=== PATIENT | male | born 1960 | race Caucasian/White ===

== ENCOUNTER 2023-03-07 08:30 | Day surgery (SDC) | payer MEDICARE, OTHER, SELFPAY ==
[2023-03-07] VITALS (15 sets, daily range): BP systolic 120–157; BP diastolic 72–94; PULSE 74–99; RESP 10–22; TEMP 36.8–36.9; O2SAT 95–98; BMI 28.1
--- NOTE | 2023-03-07 08:50 | ECG_ITS ---
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
--- NOTE | 2023-03-07 08:56 | CT_ITS ---
The [address] [address] Patient Name: DYAN HARRELL MRN: [id number] date: 1960 Sex: M Assigned Patient Location: ER Current Patient Location: ER Accession/Order Number: [id number] Exam Date: 03/07/2023 09:40 Report Date: 03/07/2023 10:08 At the request of: GUSTAVO COELHO Procedure: CT abdomen pelvis wo con CT abdomen pelvis wo con, 03/07/2023 9:40 AM EDT, [place]001 INDICATION: RLQ abd pain COMPARISON: CT from 09/14/2022.. TECHNIQUE: Helical images were obtained without intravenous contrast. Coronal and sagittal reconstructions were also generated. Dose reduction techniques were achieved by using automated exposure control and/or adjustment of mA and/or kV according to patient size and/or use of iterative reconstruction technique. Oral contrast: None. FINDINGS: The visualized portions of the lower thorax appear unremarkable. The liver is normal in size and attenuation. The gallbladder has been removed. Multiple punctate calcifications are again seen within the pancreas suggestive of chronic pancreatitis. The spleen appears unremarkable. The adrenal glands appear unremarkable. There is moderate right hydronephrosis/hydroureter down to the level of a 7 mm calculus at the upper sacral level. A few punctate nonobstructing renal calculi are again noted. The vasculature appears unremarkable. There is no pathologic retroperitoneal adenopathy. The urinary bladder appears unremarkable. The prostate gland is enlarged at 5.2 cm transverse. There is no evidence of pathologic pelvic adenopathy. There is no evidence of free air or free fluid. There is no evidence of obstruction. There is dilatation of the appendix at 13 mm in diameter with stranding in the surrounding fat, consistent with acute appendicitis. No significant hernia is identified. The osseous structures appear unremarkable. CT/CT abdomen pelvis wo con IMPRESSION: Findings consistent with acute appendicitis. There is no evidence of abscess or free air. Moderate right hydronephrosis/hydroureter with a 7 mm calculus at the upper sacral level. Electronically authenticated by: LIVIA VILLA Date: 03/07/2023 10:08
--- NOTE | 2023-03-07 08:58 | ED.ABDPAIN1 ---
HPI - Abdominal Pain General Chief Complaint: Abdominal Pain Stated Complaint: FEVER/STOMACH PAIN/NAUSEA/CHILLS Time Seen by Provider: 03/07/23 08:34 Source: patient Mode of arrival: walk-in Limitations: no limitations History of Present Illness HPI narrative: The patient had a history of hypertension presenting to us with a few days history of right-sided lower quadrant pain associated with the overall bloating and nausea, the patient had decreased appetite over the last few days as well since Sunday he also mentioned having some chills earlier. No burning with urination no other complaints The pain is not radiating and the patient mentioned that he have a history of cholecystectomy Related Data Home Medications Medication Instructions Recorded Confirmed hydrochlorothiazide 12.5 mg capsule 12.5 mg PO DAILY 03/07/23 03/07/23 semaglutide 7 mg tablet (Rybelsus) 7 mg PO DAILY 03/07/23 03/07/23 tamsulosin 0.4 mg capsule (Flomax) 0.4 mg PO DAILY 03/07/23 03/07/23 Allergies Allergy/AdvReac Type Severity Reaction Status Date / Time No Known Drug Allergies Allergy Verified 03/07/23 08:36 Review of Systems ROS Status of ROS 10 or more systems reviewed and unremarkable except as noted in history and below Exam Narrative Exam Narrative: Nurses notes and vital signs reviewed and patient is not hypoxic. General: Well-appearing and in no apparent distress. Skin: Warm, dry, no pallor noted. No rash. Head: Normocephalic, atraumatic. Neck: Supple, non-tender. Eye: Pupils are equal, round and EOMI. No scleral icterus. Ears, Nose, Mouth, and Throat: TM are clear, no nasal mucosal hypertrophy. Oral mucosa is moist, no posterior oropharynx erythema, uvula is mid-line Cardiovascular: Regular Rate and Rhythm without murmur, gallop or rub. Respiratory: No accessory muscle use or respiratory distress. Lungs are clear to auscultation, no wheezing, rales or rhonchi Chest Wall: no tenderness Back: No midline thoracic or lumbar vertebral tenderness. No CVA tenderness Musculoskeletal: normal ROM, no calf or popliteal tenderness, no lower extremity edema/swelling GI: Abdomen is soft, non-distended. Normal bowel sounds. The patient have right-sided lower abdominal tenderness on deep palpation that is mild No masses appreciated. Neurological: A&O x4. No cranial nerve dysfunction observed. No truncal ataxia. Moves all extremities. Sensation intact. Psychiatric: Cooperative and interactive. Normal mood and affect. Constitutional Vital Signs, click to edit/add: Last Vital Signs Temp 98.5 F 03/07/23 08:36 Pulse 92 H 03/07/23 08:36 Resp 18 03/07/23 08:36 BP 120/75 03/07/23 08:36 Pulse Ox 97 03/07/23 08:36 O2 Del Method Room Air 03/07/23 08:36 Course Vital Signs Vital signs: Vital Signs Temperature 98.5 F 03/07/23 08:36 Pulse Rate 92 H 03/07/23 08:36 Respiratory Rate 18 03/07/23 08:36 Blood Pressure 120/75 03/07/23 08:36 Pulse Oximetry 97 03/07/23 08:36 Oxygen Delivery Method Room Air 03/07/23 08:36 Temperature 98.5 F 03/07/23 08:36 Pulse Rate 92 H 03/07/23 08:36 Respiratory Rate 18 03/07/23 08:36 Blood Pressure 120/75 03/07/23 08:36 Pulse Oximetry 97 03/07/23 08:36 Oxygen Delivery Method Room Air 03/07/23 08:36 MDM - Abdominal Pain MDM Narrative Medical decision making narrative: The patient CBC and chemistry showed no acute significant pathology but his CAT scan confirmed the acute diagnosis of appendicitis and he also have moderate hydronephrosis on the right side as well Right now the main diagnosis is acute appendicitis I did speak with the doctor Geovanny and he presented to the bedside to speak with the patient he will be taking him to surgery the patient last p.o. intake was 2 days ago and he had some water this morning The patient EKG showing sinus rhythm with a heart rate of [address] elevation or depression I told the patient that he is to follow-up with his urologist as he have a history of kidney stone before or his primary care doctor after being discharged with acute management of appendicitis to follow-up about the kidney stone I spoke with Dr. Small the patient will go for surgery I will be discharged after that Lab Data Labs: Lab Results 03/07/23 Range/Units 08:45 WBC 8.8 (4.0-11.0) 10^3/uL RBC 4.82 (4.70-6.10) 10^6/uL Hgb 14.0 (14.0-18.0) g/dL Hct 40.8 L (42.0-54.0) % MCV 84.6 (80.0-94.0) fL MCH 29.0 (25.9-34.0) pg MCHC 34.3 (29.9-35.2) g/dL RDW 13.0 (11.0-15.0) % Plt Count 307 (150-450) 10^3/uL MPV 10.1 (9.5-13.5) fL Neut % (Auto) 70.6 (43.0-75.0) % Lymph % (Auto) 16.3 L (20.5-60.0) % [place] % (Auto) 11.1 (1.7-12.0) % Eos % (Auto) 0.9 (0.9-7.0) % Baso % (Auto) 0.6 (0.2-2.0) % Neut # (Auto) 6.2 (1.4-6.5) 10^3/uL Lymph # (Auto) 1.4 (1.2-3.8) 10^3/uL [place] # (Auto) 1.0 H (0.3-0.8) 10^3/uL Eos # (Auto) 0.1 (0.0-0.7) 10^3/uL Baso # (Auto) 0.1 (0.0-0.1) 10^3/uL Abs Immat Gran (auto) 0.04 H (0.00-0.03) 10^3/uL Imm/Tot Granulo (auto) 0.5 (0.0-0.5) % PT 10.3 (9.0-11.6) sec INR 0.97 Sodium 132 L (136-145) mmol/L Potassium 3.8 (3.5-5.1) mmol/L Chloride 98 (98-107) mmol/L Carbon Dioxide 25.0 (21.0-32.0) mmol/L Anion Gap 12.8 BUN 11.0 (7.0-18.0) mg/dL Creatinine 1.19 (0.70-1.30) mg/dL Est GFR ( Amer) >60 (>=60) Est GFR (Non-Af Amer) >60 (>=60) BUN/Creatinine Ratio 9.2 Glucose 177 H (74-106) mg/dL Calcium 9.5 (8.5-10.1) mg/dL Total Bilirubin 0.6 (0.2-1.0) mg/dL AST 29 (15-37) U/L ALT 46 (16-63) U/L Alkaline Phosphatase 72 (46-116) U/L Troponin I High Sens 4.6 (4.0-76.1) pg/mL Total Protein 8.2 (6.4-8.2) g/dL Albumin 3.6 (3.4-5.0) g/dL Globulin 4.6 g/dL Albumin/Globulin Ratio 0.8 Discharge Plan Discharge Chief Complaint: Abdominal Pain Clinical Impression: Hydronephrosis, Kidney calculus, Acute appendicitis Patient Disposition: Home, Self-Care Time of Disposition Decision: 11:51 Condition: Good
[2023-03-07] MEDS: KETOROLAC TROMETHAMINE 30 MG/ML VIAL 15 MG IVP (09:08)
[2023-03-07] MEDS: FAMOTIDINE/PF 20 MG/2 ML VIAL IV (09:08)
[2023-03-07] MEDS: ONDANSETRON PF 4 MG/2 ML VIAL IV (09:09)
[2023-03-07 09:17] LABS: Basophils Absolute Auto 0.1 10^3/uL (0.0-0.1); Basophils Percent Auto 0.6 % (0.2-2.0); Eosinophils Absolute Auto 0.1 10^3/uL (0.0-0.7); Eosinophils Percent Auto 0.9 % (0.9-7.0); Hematocrit 40.8 % (42.0-54.0); Immature Granulocytes Abs Auto 0.04 10^3/uL (0.00-0.03); Immature Granulocytes Pct Auto 0.5 % (0.0-0.5); Lymphocytes Absolute Auto 1.4 10^3/uL (1.2-3.8); Lymphocytes Percent Auto 16.3 % (20.5-60.0); Mean Corpuscular HGB Conc 34.3 g/dL (29.9-35.2); Mean Corpuscular Volume 84.6 fL (80.0-94.0); Mean Platelet Volume 10.1 fL (9.5-13.5); Monocytes Percent Auto 11.1 % (1.7-12.0); Neutrophils Absolute Auto 6.2 10^3/uL (1.4-6.5); Neutrophils Percent Auto 70.6 % (43.0-75.0); Platelet Count 307 10^3/uL (150-450); Red Blood Count 4.82 10^6/uL (4.70-6.10); White Blood Count 8.8 10^3/uL (4.0-11.0)
[2023-03-07 09:47] LABS: Alanine Aminotransferase 46 U/L (16-63); Albumin Globulin Ratio 0.8; Albumin Level 3.6 g/dL (3.4-5.0); Alkaline Phosphatase 72 U/L (46-116); Anion Gap 12.8; Aspartate Amino Transferase 29 U/L (15-37); BUN Creatinine Ratio 9.2; Bilirubin Total 0.6 mg/dL (0.2-1.0); Calcium 9.5 mg/dL (8.5-10.1); Chloride 98 mmol/L (98-107); Estimated GFR (African America >60 (>=60); Estimated GFR (Non-African Ame >60 (>=60); Globulin 4.6 g/dL; Glucose 177 mg/dL (74-106); INR 0.97; Potassium 3.8 mmol/L (3.5-5.1); Prothrombin Time 10.3 sec (9.0-11.6); Sodium 132 mmol/L (136-145); Total Protein 8.2 g/dL (6.4-8.2); Troponin I High Sensitivity 4.6 pg/mL (4.0-76.1)
[2023-03-07] MEDS: ERTAPENEM SODIUM 1 GM in 0.9 % SODIUM CHLORIDE 50 ML IV (12:16)
[2023-03-07] MEDS: LACTATED RINGER'S SOLUTION 1,000 ML 50 ML IV (13:50)
[2023-03-07] MEDS: BUPIVACAINE HCL 0.5% PF 50 MG/10 ML VIAL 20 ML INJ (13:55)
--- NOTE | 2023-03-07 14:39 | P.GSCN_ITS ---
History of Present Illness Consult details Consult date: 03/07/23 Reason for consult: other (Acute appendicitis) Requesting physician: Gustavo Coelho Narrative: Patient is a 62-year-old white male, who is seen in consultation at the request of the emergency department physician, Gustavo Coelho. Consultation is requested for surgical evaluation and management of a patient presenting with clinical signs and symptoms consistent with a diagnosis of acute appendicitis. The patient is seen in surgical consultation at 1100 hrs. 03/07/2023. In the course of consultation, the patient's electronic medical record is comprehensively reviewed. The patient is interviewed and examined. The results of all available laboratory tests are reviewed and noted. A diagnostic contrast-enhanced CT scan examination of the abdomen and pelvis is personally viewed and interpreted. According to the patient, he had come home from work on Sunday03/05/2023, with some cramping discomfort in his lower abdomen. This was associated with acute nausea and loss of appetite, without vomiting. Throughout the ensuing 36 hours, the intensity of the pain continued to progress, with localization of the pain to the right lower quadrant. With persistence of symptoms, the patient elected to seek care in the emergency department at [facility] 03/07/2023. Upon presentation, the patient was found to be acutely tender in the right lower quadrant of the abdomen at McBurney's point. Routine lab work was obtained. A diagnostic contrast-enhanced CT scan examination of the abdomen and pelvis was performed. Based on the CT findings, a request for surgical consultation was made. Clinically, the patient reports that his right lower quadrant pain has eased somewhat but that he is still experiencing episodic nausea, and fever alternating with shaking chills. The patient notes that he has no appetite and has not eaten since 03/05/2023. Bowels have been moving regularly. The patient denies any issues with diarrhea or constipation. He reports no melena or gross hematochezia. The patient denies any hematuria, dysuria, urgency, or urinary frequency. He describes his abdominal discomfort as being cramping and colicky in nature. There is no radiation to the back, flank, chest, groin, or left lower quadrant. Past medical history is significant for hypertension and nug-rrstscz-osgrwxzys diabetes mellitus. The patient has a well-documented history of nephro and ureterolithiasis. He has had several lithotripsy and stone extraction procedures. Previous abdominal surgery is significant for a laparoscopic cholecystectomy several years ago by Dr. Mark Chanel. Laboratory profile 03/07/2023, shows a normal white blood cell count of 8800, with a normal white cell differential. Hemoglobin and hematocrit are normal. Serum electrolytes, BUN, creatinine are all normal with the exception of a slightly low sodium of 132. Hepatic transaminase levels are normal. Diagnostic contrast-enhanced CT scan examination of the abdomen and pelvis 03/07/2023, shows an acutely dilated vermiform appendix at 13 mm. The appendix is thick walled, and there is evidence of periappendiceal inflammatory stranding within the mesoappendiceal soft tissues. An appendicolith is not identified. There is no evidence of appendiceal or periappendiceal abscess. There is no evidence of free fluid or free air. Review of Systems ROS Narrative 12 point review of systems is negative except as documented in the [facility] Meds Home Medications and Allergies Home Medications Medication Instructions Recorded Confirmed Type hydrochlorothiazide 12.5 mg capsule 12.5 mg PO DAILY 03/07/23 03/07/23 History semaglutide 7 mg tablet (Rybelsus) 7 mg PO DAILY 03/07/23 03/07/23 History tamsulosin 0.4 mg capsule (Flomax) 0.4 mg PO DAILY 03/07/23 03/07/23 History Allergies Allergy/AdvReac Type Severity Reaction Status Date / Time No Known Drug Allergies Allergy Verified 03/07/23 08:36 Exam Constitutional Vital Signs, click to edit/add: Last Vital Signs Temp 98.3 F 03/07/23 14:10 Pulse 78 03/07/23 14:30 Resp 11 L 03/07/23 14:30 BP 138/87 03/07/23 14:30 Pulse Ox 96 03/07/23 14:30 O2 Del Method Room Air 03/07/23 14:25 Other: Well-developed, well-nourished, otherwise healthy, middle-aged white male. Mild lower abdominal distress. HENMT Other: Head normocephalic and atraumatic. Pupils equally round and reactive to light. Extraocular movements intact. The oral and hypopharynx are clear without erythema or exudate. Mucous membranes are moist. There are no oral or pharyngeal mass lesions. Neck & C-Spine Other: Trachea midline. Carotid pulses 2+ bilaterally. No thyromegaly. No jugular venous distention. Chest Other: Unlabored respirations. Equal chest wall expansion bilaterally. Lungs are clear to auscultation bilaterally without rales, wheezes, or rhonchi. Cardio Other: Heart regular rate and rhythm. Normal S1-S2. GI Other: The abdomen is soft and nondistended there is no tympany to percussion. No hepatosplenomegaly is detected. An intra-abdominal mass is not appreciated. The patient is focally tender to palpation in the right lower quadrant at McBurney's point. A right lower quadrant abdominal mass is not identified. There is no muscular wall rigidity or involuntary guarding. Rovsing's, psoas, and obturator signs are all negative. Flanks are nontender. Well-healed laparoscopic port site incisions are seen from previous laparoscopic cholecystectomy. There is no evidence of inguinal or ventral wall hernia. Other: Normal male external genitalia. No suprapubic, genital, or perineal edema. Extremity Other: Normal range of motion in all extremities x4. No clubbing, cyanosis, or dependent lower extremity edema. Neuro Other: Alert and oriented to time, place, and person. Neurologic status is grossly intact and without obvious focal deficits. Psych Other: Pleasant and conversant. Normal mood and affect. Good insight and understanding. Results Labs Labs: Abnormal lab results 03/07/23 Range/Units 08:45 Hct 40.8 L (42.0-54.0) % Lymph % (Auto) 16.3 L (20.5-60.0) % [place] # (Auto) 1.0 H (0.3-0.8) 10^3/uL Abs Immat Gran (auto) 0.04 H (0.00-0.03) 10^3/uL Sodium 132 L (136-145) mmol/L Glucose 177 H (74-106) mg/dL Diabetes panel 03/07/23 Range/Units 08:45 Sodium 132 L (136-145) mmol/L Potassium 3.8 (3.5-5.1) mmol/L Chloride 98 (98-107) mmol/L Carbon Dioxide 25.0 (21.0-32.0) mmol/L BUN 11.0 (7.0-18.0) mg/dL Creatinine 1.19 (0.70-1.30) mg/dL Glucose 177 H (74-106) mg/dL Calcium 9.5 (8.5-10.1) mg/dL AST 29 (15-37) U/L ALT 46 (16-63) U/L Alkaline Phosphatase 72 (46-116) U/L Total Protein 8.2 (6.4-8.2) g/dL Albumin 3.6 (3.4-5.0) g/dL Calcium panel 03/07/23 Range/Units 08:45 Calcium 9.5 (8.5-10.1) mg/dL Albumin 3.6 (3.4-5.0) g/dL Pituitary panel 03/07/23 Range/Units 08:45 Sodium 132 L (136-145) mmol/L Potassium 3.8 (3.5-5.1) mmol/L Chloride 98 (98-107) mmol/L Carbon Dioxide 25.0 (21.0-32.0) mmol/L BUN 11.0 (7.0-18.0) mg/dL Creatinine 1.19 (0.70-1.30) mg/dL Glucose 177 H (74-106) mg/dL Calcium 9.5 (8.5-10.1) mg/dL Adrenal panel 03/07/23 Range/Units 08:45 Sodium 132 L (136-145) mmol/L Potassium 3.8 (3.5-5.1) mmol/L Chloride 98 (98-107) mmol/L Carbon Dioxide 25.0 (21.0-32.0) mmol/L BUN 11.0 (7.0-18.0) mg/dL Creatinine 1.19 (0.70-1.30) mg/dL Glucose 177 H (74-106) mg/dL Calcium 9.5 (8.5-10.1) mg/dL Total Bilirubin 0.6 (0.2-1.0) mg/dL AST 29 (15-37) U/L ALT 46 (16-63) U/L Alkaline Phosphatase 72 (46-116) U/L Total Protein 8.2 (6.4-8.2) g/dL Albumin 3.6 (3.4-5.0) g/dL All other labs normal. Imaging Abdomen CT scan report/results: report reviewed and image reviewed Additional studies: Patient Name: MARK HARRELL MRN: [facility]:[id number] date: 1960 Sex: M Assigned Patient Location: ER Current Patient Location: ER Accession/Order Number: [id number] Exam Date: 03/07/2023 09:40 Report Date: 03/07/2023 10:08 At the request of: GUSTAVO DIAB Procedure: CT abdomen pelvis wo con CT abdomen pelvis wo con, 03/07/2023 9:40 AM EDT, OH001 INDICATION: RLQ abd pain COMPARISON: CT from 09/14/2022.. TECHNIQUE: Helical images were obtained without intravenous contrast. Coronal and sagittal reconstructions were also generated. Dose reduction techniques were achieved by using automated exposure control and/or adjustment of mA and/or kV according to patient size and/or use of iterative reconstruction technique. Oral contrast: None. FINDINGS: The visualized portions of the lower thorax appear unremarkable. The liver is normal in size and attenuation. The gallbladder has been removed. Multiple punctate calcifications are again seen within the pancreas suggestive of chronic pancreatitis. The spleen appears unremarkable. The adrenal glands appear unremarkable. There is moderate right hydronephrosis/hydroureter down to the level of a 7 mm calculus at the upper sacral level. A few punctate nonobstructing renal calculi are again noted. The vasculature appears unremarkable. There is no pathologic retroperitoneal adenopathy. The urinary bladder appears unremarkable. The prostate gland is enlarged at 5.2 cm transverse. There is no evidence of pathologic pelvic adenopathy. There is no evidence of free air or free fluid. There is no evidence of obstruction. There is dilatation of the appendix at 13 mm in diameter with stranding in the surrounding fat, consistent with acute appendicitis. No significant hernia is identified. The osseous structures appear unremarkable. CT/CT abdomen pelvis wo con IMPRESSION: Findings consistent with acute appendicitis. There is no evidence of abscess or free air. Moderate right hydronephrosis/hydroureter with a 7 mm calculus at the upper sacral level. Electronically authenticated by: LIVIA VILLA Date: 03/07/2023 10:08 Assessment and Plan Assessment and Plan (1) Acute appendicitis with localized peritonitis, without perforation or abscess: (2) Abdominal pain, acute, right lower quadrant: (3) Nausea: (4) Abnormal findings on diagnostic imaging of other parts of digestive tract: Plan 1) Emergency laparoscopic appendectomy 03/07/2023 -Hospital Outpatient/Same-Day Ambulatory Surgery -General/endotracheal anesthesia 2) NPO / IV hydration preoperatively 3) Broad-spectrum intravenous Invanz preoperatively 4) As long as this patient's appendix is not found to be perforated, it is anticipated that this case will be able to be managed under an ambulatory surgery status with the patient being discharged home postoperatively DISCUSSION: The patient is counseled that his clinical presentation, physical examination, and supporting CT findings are all consistent with a diagnosis of acute appendicitis with localized peritonitis, without perforation or abscess. The pathophysiology and natural history of acute appendicitis are reviewed in detail with the patient and his . An emergency laparoscopic appendectomy is recommended in the treatment of this condition. The indications, risks, benefits, and potential complications of an emergency appendectomy, performed laparoscopically in the management of acute appendicitis with localized peritonitis, are reviewed in detail with the patient. The unlikely but small possibility of conversion from a laparoscopic surgical approach to an open surgical approach is discussed. At the conclusion of today's consultation, the patient indicates his understanding of the proposed operative plan of management, and requests that we proceed with an emergency appendectomy as soon as possible. The operating room is notified of the need to proceed with this case on an emergency basis and have indicated that they will be able to accommodate the case at approximately 1245 hrs. this afternoon. The patient will be taken directly from the emergency department to the preoperative holding area, for emergency surgery. Provided that this patient's appendix has not perforated, it is anticipated that this case will be able to be managed under an ambulatory surgery status, with the patient being discharged home postoperatively. I appreciate the opportunity to have seen this patient in consultation and to have the privilege of participating in his surgical care.
--- NOTE | 2023-03-07 14:41 | PM.GSPRC ---
Date of procedure: 03/07/23 Indications for Procedure: Patient is a 62-year-old white male, who was seen in consultation after having presented to the emergency department at [facility] 03/07/2023, with a 36-hour history of persistent right lower quadrant abdominal pain and nausea. Diagnostic evaluation showed the patient to be focally tender to palpation in the right lower quadrant at McBurney's point, without muscular wall rigidity or involuntary guarding. Laboratory profile did not demonstrate an elevation in white blood cell count, and the remainder of the profile was essentially normal. Diagnostic contrast-enhanced CT scan examination of the abdomen and pelvis revealed an acutely dilated and inflamed vermiform appendix. The appendix was noted to be thick walled, and measured 13 mm in diameter. There is associated inflammatory stranding within the mesoappendiceal soft tissues. There is no evidence of perforation, appendiceal or periappendiceal abscess, and/or luminal appendicolith. The patient has been counseled that his clinical presentation, physical examination, and supporting CT findings, are all consistent with a diagnosis of acute appendicitis with localized peritonitis, without obvious perforation or abscess. The pathophysiology and natural history of acute appendicitis was reviewed in detail with the patient. An emergency laparoscopic appendectomy has been recommended in the treatment of this condition. The indications, risks, benefits, and potential complications of an emergency appendectomy, performed laparoscopically in the management of acute appendicitis with localized peritonitis, have been reviewed in detail with the patient. The unlikely however small possibility of conversion from a laparoscopic surgical approach to an open surgical approach has been discussed. The patient has indicated his understanding of the proposed operative plan of management and has provided his informed written consent to proceed with an emergency laparoscopic appendectomy. Following intravenous fluid hydration and administration of a broad-spectrum intravenous antimicrobial agent, this patient is now taken emergently to the operative suite for a laparoscopic appendectomy. Pre-op diagnosis: Acute appendicitis w peritonitis, without perforation or abscess (K35.30) Post-op diagnosis: other (Acute appendicitis w peritonitis, without perforation or abscess (K35.30)) Procedure: Emergency laparoscopic appendectomy (22229) Findings: Acute appendicitis with localized peritonitis, without perforation or abscess Anesthesia: General-ET Surgeon: Turner Small Procedure Summary: At 1248 hrs. 03/07/2023, the patient was taken to the operative suite where he was positioned supine on the operating room table. General endotracheal anesthesia was administered by Dr. Lionel Das II. This patient is classified as an ASA class II E anesthetic risk. Within 30 minutes prior to commencement of the operative case, this patient received Invanz 1 g intravenously in the empiric antimicrobial management of acute appendicitis. DVT prophylaxis was maintained throughout the intraoperative course by the use of sequential pneumatic compression stockings. Following the satisfactory induction of general anesthesia, an orogastric tube was placed for gastric decompression. The patient had voided just prior to transport to the operative suite, and Tucker catheterization was not required. The body hair overlying this patient's ventral abdominal wall was removed using surgical clippers. The ventral abdominal wall was widely prepped using ChloraPrep, and the patient draped in the normal sterile fashion for a laparoscopic appendectomy. An Olympus high-definition laparoscopic system was used and the conduct of this case. An appropriate time-out was performed in order to confirm the correct procedure to be conducted. The operative procedure commenced at 1311 hrs. This patient's peritoneal cavity was cannulated through a previous transversely oriented laparoscopic port site incision along the infraumbilical crease. The Gutiérrez technique of open cannulation was used. Once cannulated, the peritoneal cavity was insufflated by instillation of carbon dioxide gas. With an adequate inflation pressure, the Olympus high-definition laparoscope was passed and a videoscopic exploration performed. At exploration, the vermiform appendix could not be immediately visualized at the base of the cecum. There was no evidence of purulent fluid along the right colic gutter, nor the right iliac fossa. Additional laparoscopic operating ports were placed through the suprapubic midline and the hypogastric midline. A 12 mm operating port was utilized at the suprapubic location, and a 5 mm operating port at the hypogastric location. Both ports were placed under direct camera visualization. The operating room table was positioned in Trendelenburg, with the patient airplaned toward his left. Using a bimanual approach, the cecum was grasped and retracted both cephalad and toward the abdominal midline. This resulted in exposure of the vermiform appendix within the right colic gutter. The appendix was seen to be in a normal anatomic location, and was not retrocecal or retroperitoneal. The tip of the appendix was grasped using a Froylan clamp, and retracted cephalad. A Kitner dissector was used to lyse the inflammatory adhesions between the body of the appendix and the retroperitoneum. Once the appendix had been freed from the right colic gutter, the base of the appendix was identified and encircled. A mesenteric window was created within the mesoappendix at the junction of the base of the appendix and the base of the cecum. Through this window, an Ethicon linear laparoscopic NICK stapling device, employing a soft tissue cartridge, was passed across the origin of the appendix at the base of the cecum. The stapling device was deployed, ligating the appendix at its base and dividing it from the cecum. At this point, the mesoappendix was isolated and the appendiceal artery ligated and divided using a second application of the Ethicon linear laparoscopic NICK stapling device, this time employing a vascular tissue cartridge. Upon complete resection, the acutely inflamed vermiform appendix was placed into an Endo Catch bag and extracted from the peritoneal cavity through the umbilical port site. The resected specimen was placed into an appropriately labeled container, and submitted to pathology for gross and microscopic examination. The peritoneal cavity was reinsufflated. The integrity of the staple line across the base of the cecum was confirmed visually. The mesoappendix was confirmed to be hemostatic. The base of the cecum and right colic gutter were irrigated using sterile saline. Irrigations were continued until the effluent returned clear. Following a final check for hemostasis, all laparoscopic instrumentation was withdrawn. The pneumoperitoneum was released. The fascial defects at the umbilical and suprapubic port site incisions were closed using interrupted 0 Vicryl fascial sutures. All skin incisions were injected using Marcaine 0.5%. In total, 20 mL of this local anesthetic was used. All skin incisions were closed using interrupted 4-0 undyed Vicryl suture in a subcuticular stitch. All wounds were sterilely dressed using Mastisol and Steri-Strips. The operative procedure was completed at 1405 hrs. At the completion of the procedure all sponge, needle, and instrument counts were correct. Estimated blood loss for the procedure was less than 5 mL. The patient tolerated this emergency laparoscopic appendectomy in the management of acute suppurative appendicitis with localized peritonitis, without perforation or abscess, well. There were no operatively related complications. The patient was awakened and taken to the postanesthesia care unit in satisfactory condition. Following recovery from anesthesia, this patient is to be discharged home. Discharge instructions were reviewed verbally with the patient and a written copy of these instructions provided. Should the patient require any analgesic medication post procedurally, he is advised to utilize [id number] ibuprofen or acetaminophen. A narcotic pain prescription was not provided, nor was the patient interested in taking a narcotic. A follow-up appointment is scheduled for this patient to see Dr. Mark Chanel in his office in approximately 2 weeks. Should the patient experience any problems or concerns prior to his scheduled follow-up appointment, he is instructed to contact Dr. Chanel's office. Turner Small MD Referral Management Liaison: Thi Aquino RN/FA Estimated blood loss (mL): 5 Specimens: Vermiform appendix Complications: No Pathology: other (Vermiform appendix) Condition: stable Disposition: same day
== END 2023-03-07 15:25 | disposition home or self-care (01) ==
LOC: ER 11:40 → SURGOUT 11:49
PROVIDERS: Emergency Provider Emergency Medicine; Visit Provider Surgery
PROC: (CPT 44970; principal; 2023-03-07 12:00)
DX: K35.30 Acute appendicitis with localized peritonitis, without perforation or gangrene (principal); Z48.00 Encounter for change or removal of nonsurgical wound dressing; Z98.890 Other specified postprocedural states; E11.9 Type 2 diabetes mellitus without complications; I10 Essential (primary) hypertension; Z90.49 Acquired absence of other specified parts of digestive tract; Z87.442 Personal history of urinary calculi; R93.3 Abnormal findings on diagnostic imaging of other parts of digestive tract; R11.0 Nausea; R10.31 Right lower quadrant pain
CPT/HCPCS: 44970; 36415; 74176; 80053; 84484; 85025; 85610; 88304; 93005; 96374; 96375; 99282; 99285; J1335; J2704

== ENCOUNTER 2023-03-07 18:24 | Emergency (ER) | payer MEDICARE, OTHER, SELFPAY ==
[2023-03-07 18:29] VITALS: BP 172/89; PULSE 84; RESP 18; TEMP 36.7; O2SAT 98; BMI 28.1
--- NOTE | 2023-03-07 18:59 | PC.NURSE ---
PT HAD LAP APPY THIS AFTERNOON WITH DR VILLALTA. PT WAS SENT HOME POST-OP. PT C/O INCREASED PAIN AND BLEEDING TO UMBILICAL INCISION. STERI-STRIP INTACT. BLEEDING CONTROLLED AND COVERED WITH 2X2 GAAUZE
--- NOTE | 2023-03-07 19:33 | ED_ITS ---
HPI - Skin/Abscess/Foreign Bdy General Chief complaint: Skin/Abscess/Foreign Body Stated complaint: Post operative complications - bleeding Time Seen by Provider: 03/07/23 18:47 Source: patient Mode of arrival: walk-in History of Present Illness HPI narrative: Patient presents to emergency Department for a wound check. Patient was seen and evaluated in the emergency department This morning and found to have acute appendicitis. The patient had an appendectomy done at 1 PM and he was discharged home by 4 PM. Patient states he went home and was doing well when he got up he noticed that there was a lot of sanguinous drainage from the umbilical incision. He states he had subcutaneous sutures with Steri-Strips intact. He denies any trauma. He denies any abdominal pain other than just feeling bloated from the gas. He is uncomfortable only when he tries to get up from a supine position. He denies any fever, or chills. Denies any dizziness, palpitations, lightheadedness. Denies any flank pain, hematuria, dysuria. Patient is concerned that he was not sent home with any antibiotics and negative wound is infected. Related Data Home Medications Medication Instructions Recorded Confirmed hydrochlorothiazide 12.5 mg capsule 12.5 mg PO DAILY 03/07/23 03/07/23 semaglutide 7 mg tablet (Rybelsus) 7 mg PO DAILY 03/07/23 03/07/23 tamsulosin 0.4 mg capsule (Flomax) 0.4 mg PO DAILY 03/07/23 03/07/23 Previous Rx's Medication Instructions Recorded hydrocodone 5 mg-acetaminophen 325 1 tab PO Q6H PRN pain 5 days #10 03/07/23 mg tablet tabs Allergies Allergy/AdvReac Type Severity Reaction Status Date / Time No Known Drug Allergies Allergy Verified 03/07/23 08:36 Review of Systems ROS Status of ROS 10 or more systems reviewed and unremarkable except as noted in history and below Exam Narrative Exam Narrative: Nurses notes and vital signs reviewed and patient is not hypoxic. General: Nontoxic, Well-appearing and in no apparent distress. Skin: Warm, dry, no pallor noted. No Rash Head: Normocephalic, atraumatic. Neck: Supple, non-tender. Eye: Pupils are equal, round and EOMI. No scleral icterus. Ears, Nose, Mouth, and Throat: TM clear, no posterior oropharynx erythema or nasal mucosal hypertrophy, uvula is mid-line Oral mucosa is moist Cardiovascular: Regular Rate and Rhythm without murmur, gallop or rub. Respiratory: No accessory muscle use or respiratory distress. Lungs are clear to auscultation, no wheezing, rales or rhonchi Chest Wall: no tenderness Back: No midline thoracic or lumbar vertebral tenderness. No CVA tenderness Musculoskeletal: normal ROM, no calf or popliteal tenderness, no lower extremity edema/swelling GI: Abdomen is soft, Slight distended, Not rigid or firm. Normal bowel sounds. No tenderness to palpation. No rebound, guarding, or rigidity noted. Laparoscopic incisions with Steri-Strips in place. There is no dehiscence of bleeding noted except for the umbilical incision which has a tiny amount of sanguinous drainage only when the patient goes from a prone to a seated position. There is no pulsatile bleeding, pain or hemorrhage. Neurological: A&O x4. No cranial nerve dysfunction observed. No truncal ataxia. Moves all extremities. Sensation intact. Psychiatric: Cooperative and interactive. Normal mood and affect. Constitutional Vital Signs, click to edit/add: Last Vital Signs Temp 98.0 F 03/07/23 18:29 Pulse 84 03/07/23 18:29 Resp 18 03/07/23 18:29 BP 172/89 H 03/07/23 18:29 Pulse Ox 98 03/07/23 18:29 O2 Del Method Room Air 03/07/23 18:41 Course Vital Signs Vital signs: Vital Signs Temperature 98.0 F 03/07/23 18:29 Pulse Rate 84 03/07/23 18:29 Respiratory Rate 18 03/07/23 18:29 Blood Pressure 172/89 H 03/07/23 18:29 Pulse Oximetry 98 03/07/23 18:29 Oxygen Delivery Method Room Air 03/07/23 18:29 Temperature 98.0 F 03/07/23 18:29 Pulse Rate 84 03/07/23 18:29 Respiratory Rate 18 03/07/23 18:29 Blood Pressure 172/89 H 03/07/23 18:29 Pulse Oximetry 98 03/07/23 18:29 Oxygen Delivery Method Room Air 03/07/23 18:41 MDM - Skin/Abscess/Foreign Bdy MDM Narrative Medical decision making narrative: This point is discussed with the patient wound care. We have placed were just filled, and a pressure dressing. Family supplies to keep the dressing in place for the next 24 hours. They're advised not to change it unless saturates through with blood. In which case they are to return immediately to the emergency department. They understand The patient was also concerned about constipation. He is advised to take MiraLAX. A short the patient currently there is no clinical indication for antibiotics. He is to follow-up with the surgeon tomorrow. He is to return if he has increased pain, fever, or bleeding is noted. Patient states he does not have any pain in his abdomen is feeling actually better. However, any time that he does move he does have some abdominal wall pain in which case we discussed analgesics and we opted for a prescription for [place] to have just in case he develops pain at night. At this time the patient is without objective evidence of an acute process requiring hospitalization or inpatient management. The patient has remained hemodynamically stable. No additional indication for emergent studies at this time. I answered all questions. Discussed discharge instructions including standard anticipatory guidance and what should prompt a return to the emergency department, including if they get worse are not getting better or develops any new or concerning symptoms. I've given them specific time frame in which to follow-up, and who to follow-up with. The patient demonstrates understanding. Patient is nontoxic and stable for discharge with outpatient follow-up. This note was created with the assistance of a speech recognition program. Although the intention is to generate documents that actually reflects the content of the visit, no guarantees can be provided that every mistake has been identified and corrected by editing. Medical Records Attestation: I reviewed the patient's medical records. Discharge Plan Discharge Chief Complaint: Skin/Abscess/Foreign Body Clinical Impression: Encounter for post surgical wound check Patient Disposition: Home, Self-Care Time of Disposition Decision: 20:06 Condition: Good Mode of Transportation: Private Vehicle Prescriptions / Home Meds: New hydrocodone-acetaminophen 5-325 mg tablet 1 tab PO Q6H PRN (Reason: pain) 5 Days Qty: 10 0RF No Action hydrochlorothiazide 12.5 mg capsule 12.5 mg PO DAILY tamsulosin [Flomax] 0.4 mg capsule 0.4 mg PO DAILY Rybelsus 7 mg tablet 7 mg PO DAILY Instructions: Acute Wounds (ED) Stand Alone Forms: Portal Instructions Referrals: Turner Small MD [Physician] - 1 week Nill,Mark, MD [Physician] - 1 week Discharge Date/Time: 03/07/23 20:32
[2023-03-07] MEDS: SURGIFOAM GEL SPONGE SIZE 100 1 EACH TOPICAL (20:28)
== END 2023-03-07 20:32 | disposition home or self-care (01) ==
PROVIDERS: Emergency Provider Emergency Medicine
DX: Z48.00 Encounter for change or removal of nonsurgical wound dressing (principal); Z98.890 Other specified postprocedural states
CPT/HCPCS: 36415; 74176; 80053; 84484; 85025; 85610; 88304; 93005; 96374; 96375; 99282; 99285; J1335; J2704

== ENCOUNTER 2024-02-25 09:39 | Outpatient (OUT) | payer MEDICARE, OTHER, SELFPAY ==
--- NOTE | 2024-02-25 09:41 | XR_ITS ---
The [address] [address] Patient Name: DYAN HRARELL MRN: [id number] date: 1960 Sex: M Assigned Patient Location: [facility] Current Patient Location: Accession/Order Number: [id number] Exam Date: 02/25/2024 09:43 Report Date: 02/27/2024 04:32 At the request of: JUDITH LOVE Procedure: XR abdomen 1V EXAMINATION: XR abdomen 1V HISTORY: Calculus Of Kidney And Ureter COMPARISON: XR abdomen 03/14/2022 FINDINGS: KIDNEY/URETER - RIGHT: Multiple calcifications projecting over kidney. KIDNEY/URETER - LEFT: Multiple calcifications projecting over kidney. PELVIS: Numerous pelvic calcifications favoring phleboliths. No convincing ureteral stone. BOWEL: No abnormal dilation or deviation. BONES: No acute abnormality. OTHER: Negative. No abnormal gaseous collections. XR/XR abdomen 1V IMPRESSION: 1. Bilateral nephrolithiasis. No appreciable ureteral stones. Electronically authenticated by: ALEKSANDR BAHENA Date: 02/27/2024 04:32
== END 2024-02-25 09:40 | disposition home or self-care (01) ==
LOC: RAD 09:40
PROVIDERS: Visit Provider Urology
DX: N20.2 Calculus of kidney with calculus of ureter (principal)
CPT/HCPCS: 74018

== ENCOUNTER 2024-10-21 09:16 | Emergency (ER) | payer MEDICARE, OTHER, SELFPAY ==
--- OUTSIDE RECORDS SUMMARY | 2024-10-21 09:25 | XMS_ITS | CCD ---
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 [address] Dr. Hailey Marr AST [Catalytic activity/Vol] 24 U/L Normal 15-37 [facility] Comment on above: Performed By: #### L IPA, CMP, VIJI #### [facility] [address] [place] [address] Dr. Hailey Marr Bilirubin [Mass/Vol] 0.5 mg/dL Normal 0.2-1.0 [facility] Comment on above: Performed By: #### L IPA, CMP, VIJI #### [facility] [address] [place] [address] Dr. Hailey Marr Calcium [Mass/Vol] 10.8 mg/dL Critically high 8.5-10.1 [facility] Comment on above: Performed By: #### L IPA, CMP, VIJI #### [facility] [address] [place] [address] Dr. Hailey Marr Chloride [Moles/Vol] 104 mmol/L Normal 98-107 [facility] Comment on above: Performed By: #### L IPA, CMP, VIJI #### [facility] [address] [place] [address] Dr. Hailey Marr CO2 [Moles/Vol] 26.6 mmol/L Normal 21.0-32.0 [facility] Comment on above: Performed By: #### L IPA, CMP, VIJI #### [facility] [address] [place] [address] Dr. Hailey Marr Creatinine [Mass/Vol] 1.19 mg/dL Normal 0.70-1.30 [facility] Comment on above: Performed By: #### L IPA, CMP, VIJI #### [facility] [address] [place] [address] Dr. Hailey Marr EGFR-AF SAUDI ARABIAN >60 Normal >=60 [facility] Comment on above: Result Comment: Prev iously reported as: 60 On 09/14/2022 08:02 By [email or web address] Performed By: #### L IPA, CMP, VIJI #### [facility] [address] [place] [address] Dr. Hailey Marr EGFR-NON AF SAUDI ARABIAN >60 Normal >=60 [facility] Comment on above: Result Comment: Prev iously reported as: 60 On 09/14/2022 08:02 By [email or web address] Performed By: #### L IPA, CMP, VIJI #### [facility] [address] [place] [address] [address] Hailey Marr Globulin (S) [Mass/Vol] 4.3 g/dL Normal [facility] Comment on above: Performed By: #### L IPA, CMP, VIJI #### [facility] [address] [place] [address] [address] Hailey Marr Glucose [Mass/Vol] 201 mg/dL Critically high 74-106 [facility] Comment on above: Performed By: #### L IPA, CMP, VIJI #### [facility] [address] [place] [address] [address] Hailey Marr Potassium [Moles/Vol] 4.0 mmol/L Normal 3.5-5.1 [facility] Comment on above: Performed By: #### L IPA, CMP, VIJI #### [facility] [address] [place] [address] Dr. Hailey Marr Protein [Mass/Vol] 8.3 g/dL Critically high 6.4-8.2 [facility] Comment on above: Performed By: #### L IPA, CMP, VIJI #### [facility] [address] [place] [address] [address] Hailey Marr Sodium [Moles/Vol] 140 mmol/L Normal 136-145 [facility] Comment on above: Performed By: #### L IPA, CMP, VIJI #### [facility] [address] [place] [address] [address] Hailey Marr Urea nitrogen [Mass/Vol] 21.0 mg/dL Critically high 7.0-18.0 [facility] Comment on above: Performed By: #### L IPA, CMP, VIJI #### [facility] [address] [place] [address] [address] Hailey Marr Urea nitrogen/Creatinine [Mass ratio] 17.6 mg/mg Normal [facility] Comment on above: Performed By: #### L IPA, CMP, VIJI #### [facility] [address] [place] [address] Dr. Hailey Marr URINE MICROSCOPIC ONLYon BACTERIA TRACE Abnormal NONE SEEN [facility] Comment on above: Performed By: #### U MICRO, ERUR #### [facility] [address] [place] [address] Dr. Hailey Marr Bacteria identified Cx Nom (U) NOT INDICATED Normal [facility] Comment on above: Performed By: #### U MICRO, ERUR #### [facility] [address] [place] [address] Dr. Hailey Marr CA OX CRYSTALS FEW Normal [facility] Comment on above: Performed By: #### U MICRO, ERUR #### [facility] [address] [place] [address] Dr. Haiely Marr CAST NONE SEEN Normal NONE SEEN [facility] Comment on above: Performed By: #### U MICRO, ERUR #### [facility] [address] [place] [address] Dr. Hailey Marr Crystals LM Nom (Urine sed) SEEN Abnormal NONE SEEN [facility] Comment on above: Performed By: #### U MICRO, ERUR #### [facility] [address] [place] [address] Dr. Hailey Marr Epithelial cells LM Ql (Urine sed) RARE Normal NONE SEEN /RARE [facility] Comment on above: Performed By: #### U MICRO, ERUR #### [facility] [address] [place] [address] Dr. Hailey Marr MUCOUS NONE SEEN Normal NONE SEEN [facility] Comment on above: Performed By: #### U MICRO, ERUR #### [facility] [address] [place] [address] Dr. Hailey Marr RBC 5-10 Abnormal 0-2 [facility] Comment on above: Performed By: #### U MICRO, ERUR #### [facility] [address] [place] [address] Dr. Hailey Marr WBC 2-5 Abnormal NONE SEEN [facility] Comment on above: Performed By: #### U MICRO, ERUR #### [facility] [address] [place] [address] Dr. Hailey Marr In office Testingon 09-05-19 23 In office Testing [id number]:[id number] Normal [facility] XR KUB 1 VIEWon 03-15-2022 XR KUB 1 VIEW EXAMINATION: XR KUB 1 VIEW HISTORY: Kidney stone COMPARISON: 02/14/2021 FINDINGS: KIDNEY/URETER - RIGHT: Multiple punctate nephroliths KIDNEY/URETER - LEFT: Multiple punctate nephroliths PELVIS: No visible ureteral calcifications. Any visible calcifications favor phleboliths. BOWEL: No abnormal dilation or deviation. BONES: No acute abnormality. OTHER: Negative. No abnormal gaseous collections. IMPRESSION: Stable bilateral nephrolithiasis Electronically authenticated by: ROX EASLEY Date: 2022-03-15 06:37 Normal [facility] Glucose Poct Glucometerson 0 12-08-2021 Commemt1 Glu2: Cleaned Meter Normal [facility] Comment on above: Result Comment: PERF ORMED BY: [facility] [address] [place] [address] PATHOLOGIST BASIC SCIENCES PROFESSOR ANTONIO ROSALES M.D. Performed By: #### G LULS #### Point of Care testing , Glucose [Mass/Vol] 138 mg/dL Normal [facility] Comment on above: Result Comment: [facility] Glucose Reference Range is dependent on time and content of last meal. Glucose of more than 200 mg/dL in a nonstressed, ambulatory subject supports the diagnosis of Diabetes Mellitus. Performed By: #### G LULS #### Point of Care testing , CBC AUTO DIFFon 12-07-2021 BASO # 0.1 103/ul Normal 0.0-0.1 [facility] Comment on above: Performed By: #### C BC #### [facility] [address] [place], [place] [address] Dr. Hailey Marr Basophils/100 WBC (Bld) 0.7 % Normal 0.2-2.0 [facility] Comment on above: Performed By: #### C BC #### [facility] [address] [place], [place] [address] Dr. Hailey Marr EO # 0.3 103/ul Normal 0.0-0.7 [facility] Comment on above: Performed By: #### C BC #### [facility] [address] [place] [address] Dr. Hailey Marr Eosinophils/100 WBC (Bld) 3.4 % Normal 0.9-7.0 [facility] Comment on above: Performed By: #### C BC #### [facility] [address] [place] [address] Dr. Hailey Marr Erythrocyte distribution width (RBC) [Ratio] 13.5 % Normal 11.0-15.0 [facility] Comment on above: Performed By: #### C BC #### [facility] [address] [place] [address] Dr. Hailey Marr Hematocrit (Bld) [Volume fraction] 39.4 % Critically low 42.0-54.0 [facility] Comment on above: Performed By: #### C BC #### [facility] [address] [place] [address] Dr. Hailey Marr Hemoglobin (Bld) [Mass/Vol] 13.1 g/dL Critically low 14.0-18.0 [facility] Comment on above: Performed By: #### C BC #### [facility] [address] [place] [address] Dr. Hailey Marr IG # 0.03 10e3/ul Normal 0.00-0.03 [facility] Comment on above: Performed By: #### C BC #### [facility] [address] [place] [address] Dr. Hailey Marr IG % 0.4 % Normal 0.0-0.5 [facility] Comment on above: Performed By: #### C BC #### [facility] [address] [place] [address] Dr. Hailey Marr LYMPH # 2.8 103/ul Normal 1.2-3.8 [facility] Comment on above: Performed By: #### C BC #### [facility] [address] [place] [address] Dr. Hailey Marr Lymphocytes/100 WBC (Bld) 37.2 % Normal 20.5-60.0 [facility] Comment on above: Performed By: #### C BC #### [facility] [address] [place] [address] Dr. Hailey Marr MANUAL DIFF REQ NO Normal [facility] Comment on above: Performed By: #### C BC #### [facility] [address] [place] [address] Dr. Hailey Marr MCH (RBC) [Entitic mass] 29.5 pg Normal 25.9-34.0 [facility] Comment on above: Performed By: #### C BC #### [facility] [address] [place] [address] Dr. Hailey Marr MCHC (RBC) [Mass/Vol] 33.2 g/dL Normal 29.9-35.2 [facility] Comment on above: Performed By: #### C BC #### [facility] [address] [place] [address] Dr. Hailey Marr MCV (RBC) [Entitic vol] 88.7 fL Normal 80.0-94.0 [facility] Comment on above: Performed By: #### C BC #### [facility] [address] [place] [address] Dr. Hailey Marr MONO # 0.6 103/ul Normal 0.3-0.8 [facility] Comment on above: Performed By: #### C BC #### [facility] [address] [place] [address] Dr. Hailey Marr Monocytes/100 WBC (Bld) 8.6 % Normal 1.7-12.0 [facility] Comment on above: Performed By: #### C BC #### [facility] [address] [place] [address] Dr. Hailey Marr NEUT # 3.7 103/ul Normal 1.4-6.5 [facility] Comment on above: Performed By: #### C BC #### [facility] [address] [place] [address] Dr. Hailey Marr Neutrophils/100 WBC (Bld) 49.7 % Normal 43.0-75.0 [facility] Comment on above: Performed By: #### C BC #### [facility] [address] [place], [place] [id number] Dr. Hailey Marr Platelet mean volume (Bld) [Entitic vol] 9.5 fL Normal 9.5-13.5 [facility] Comment on above: Performed By: #### C BC #### [facility] [address] [place] [address] Dr. Hailey Marr PLT 310 103/ul Normal 150-450 [facility] Comment on above: Performed By: #### C BC #### [facility] [address] [place] [address] [address] Hailey Marr RBC 4.44 106/ul Critically low 4.70-6.10 [facility] Comment on above: Performed By: #### C BC #### [facility] [address] [place] [address] Dr. Hailey Marr WBC 7.4 103/ul Normal 4.0-11.0 [facility] Comment on above: Performed By: #### C BC #### [facility] [address] [place] [address] Dr. Hailey Marr [facility] SARS-CoV-2 (COVID-19) RNA MARC+probe Ql (Unsp spec) Negative Normal Negative [facility] Comment on above: Order Comment: Healt hcare Worker?: N Result Comment: Testing for SARS-CoV-2 by RT-PCR This test was developed and its performance characteristics determined by [employer] ([facility]) and validated at the [facility]. This test has not been FDA cleared or approved. This test has been authorized by FDA under an Emergency Use Authorization (EUA). This test has been validated in accordance with the FDA's Guidance Document (Policy for Diagnostics Testing in Laboratories Certified to Perform High Complexity Testing under CLIA prior to Emergency Use Authorization for Coronavirus Disease-2019 during the Public Health Emergency) issued on October 09, 2019. This test is only authorized for the duration of time the declaration that circumstances exist justifying the authorization of the emergency use of in vitro diagnostic tests for detection of SARS-CoV-2 virus and/or diagnosis of COVID-19 infection under section 564(b)(1) of the Act, 21 U.S.C. 360bbb-3(b)(1), unless the authorization is terminated or revoked sooner. PERFORMED BY: [place] [address] PATHOLOGIST BASIC SCIENCES PROFESSOR ANTONIO ROSALES M.D. Performed By: #### C OVID 19 [facility] #### [facility] [address] PROF 14(COMP METB)on 022 Albumin [Mass/Vol] 3.8 g/dL Normal 3.4-5.0 [facility] Comment on above: Performed By: #### C MP #### [facility] [address] [place] [address] Dr. Hailey Marr Albumin/Globulin [Mass ratio] 1.0 {ratio} Normal [facility] Comment on above: Performed By: #### C MP #### [facility] [address] [place] [address] [address] Hailey Marr ALP [Catalytic activity/Vol] 60 U/L Normal 46-116 [facility] Comment on above: Performed By: #### C MP #### [facility] [address] [place] [address] [address] Hailey Marr ALT [Catalytic activity/Vol] 73 U/L Critically high 16-63 [facility] Comment on above: Performed By: #### C MP #### [facility] [address] [place] [address] [address] Hailey Marr Anion gap [Moles/Vol] 12.5 mmol/L Normal [facility] Comment on above: Performed By: #### C MP #### [facility] [address] [place] [address] [address] Hailey Marr AST [Catalytic activity/Vol] 30 U/L Normal 15-37 [facility] Comment on above: Performed By: #### C MP #### [facility] [address] [place] [address] [address] Hailey Marr Bilirubin [Mass/Vol] 0.4 mg/dL Normal 0.2-1.0 [facility] Comment on above: Performed By: #### C MP #### [facility] [address] [place] [address] [address] Hailey Marr Calcium [Mass/Vol] 10.0 mg/dL Normal 8.5-10.1 [facility] Comment on above: Performed By: #### C MP #### [facility] [address] [place] [address] [address] Hailey Marr Chloride [Moles/Vol] 104 mmol/L Normal 98-107 [facility] Comment on above: Performed By: #### C MP #### [facility] [address] [place] [address] [address] Hailey Marr CO2 [Moles/Vol] 27.0 mmol/L Normal 21.0-32.0 [facility] Comment on above: Performed By: #### C MP #### [facility] [address] [place] [address] Dr. Hailey Marr Creatinine [Mass/Vol] 0.89 mg/dL Normal 0.70-1.30 [facility] Comment on above: Performed By: #### C MP #### [facility] [address] [place] [address] [address] Hailey Marr EGFR-AF SAUDI ARABIAN >60 Normal >=60 [facility] Comment on above: Performed By: #### C MP #### [facility] [address] [place] [address] Dr. Hailey Marr EGFR-NON AF SAUDI ARABIAN >60 Normal >=60 [facility] Comment on above: Performed By: #### C MP #### [facility] [address] [place] [address] Dr. Hailey Marr Globulin (S) [Mass/Vol] 3.9 g/dL Normal [facility] Comment on above: Performed By: #### C MP #### [facility] [address] [place] [address] Dr. Hailey Marr Glucose [Mass/Vol] 120 mg/dL Critically high 74-106 T [facility] Comment on above: Performed By: #### C MP #### [facility] [address] [place] [address] Dr. Hailey Marr Potassium [Moles/Vol] 4.5 mmol/L Normal 3.5-5.1 [facility] Comment on above: Performed By: #### C MP #### [facility] [address] [place] [address] [address] Hailey Marr Protein [Mass/Vol] 7.7 g/dL Normal 6.4-8.2 [facility] Comment on above: Performed By: #### C MP #### [facility] [address] [place] [address] [address] Hailey Marr Sodium [Moles/Vol] 139 mmol/L Normal 136-145 [facility] Comment on above: Performed By: #### C MP #### [facility] [address] [place] [address] [address] Hailey Marr Urea nitrogen [Mass/Vol] 10.0 mg/dL Normal 7.0-18.0 [facility] Comment on above: Performed By: #### C MP #### [facility] [address] [place] [address] [address] Hailey Marr Urea nitrogen/Creatinine [Mass ratio] 11.2 mg/mg Normal [facility] Comment on above: Performed By: #### C MP #### [facility] [address] [place] [id number] Hailey Marr XR hand RT min 3V*on 022 XR hand RT min 3V* [facility] [address] XRay Report Signed Patient: Dyan Harrell MR#: [id number] : 1960 Acct:[id number] Age/Sex: 61 / M ADM Date: 12/07/21 Loc: [facility]XD Room: Type: [facility] Attending Dr: Lala Hinds MD Ordering Provider: Lala Hinds MD Date of Service: 12/07/21 XR/XR hand RT min 3V*: Laceration of right hand, foreign body presence unspecified, Copies to: Lala Hinds MD RIGHT HAND - 4 views COMPARISON: None REASON FOR EXAM: Follow-up right fourth finger tendon laceration one week ago. FINDINGS: No focal soft tissue abnormality. No radiopaque foreign body. No acute bony process is seen. Minimal scattered degenerative change. No bony erosions. XR/XR hand RT min 3V* IMPRESSION: NO ACUTE BONY PROCESS. Impression dictated by: Slim Pettit Jr., D.OFarheen12/07/2021 10:09 AM Dictation Location: [facility]--11 Transcribed By: [facility] 12/07/21 1009 Dictated By: Slim Pettit Jr, DO 12/07/21 1007 Signed By: 12/07/21 1009 [facility] Vital Signs Date Time Vital Sign Value Performing Clinician Facility 03-20-2022 07:57-0400 Blood Pressure Location [facility] 03-20-2022 07:57-0400 Diastolic blood pressure 70 mm[Hg] [facility] [facility]22 07:57-0400 Systolic blood pressure 138 mm[Hg] Serafin [facility] 03-15-2022 09:30-0400 Body height 182.88 cm [employer] Other [facility] [employer] Other 03-15-2022 09:30-0400 Body mass index (BMI) [Ratio] 29.83 kg/m2 [employer] Other [facility] [employer] Other 03-15-2022 09:30-0400 Body weight 99.79 kg [employer] Other [employer] Other 12-07-2021 10:00-0400 Body height 182.88 cm [employer] Other [employer] Other 12-07-2021 10:00-0400 Body mass index (BMI) [Ratio] 30.51 kg/m2 Lala Hinds Other [employer] Other 12-07-2021 10:00-0400 Body weight 102.06 kg Lala Hinds Other [employer] Other Encounters Encounter Date Encounter Type Care Provider Facility Start: 03-20-2023 End: 03-21-2023 ambulatory Dyan MASSEY Facility:[facility] Start: 03-20-2023 End: 03-20-2023 Patient encounter procedure Dyan MASSEY General Surgery [facility] Start: 03-08-2023 ambulatory Serafin ARAGON Facility: [facility] Start: 09-14-2022 End: 09-14-[address] HILDA Zhong Facility: Start: 03-20-2022 End: 03-20-2022 Patient encounter procedure Serafin ARAGON [facility] Start: 03-15-2022 End: 03-15-2022 ambulatory Lala Hinds Other [employer] Other Start: 03-15-2022 Office outpatient vi sit 15 minutes Lala Hinds [facility] Start: 03-14-2022 End: 03-15-[address] CINDY SANTIAGO Facility:[facility] Start: 02-08-2022 End: 02-08-2022 ambulatory Lala Hinds Other [employer] Other Start: 02-08-2022 Postop follow up vis it related to original px Lala Calvey [facility] Start: 01-11-2022 End: 01-11-2022 ambulatory Lala Hinds Other [employer] Other Start: 01-11-2022 Postop follow up vis it related to original px Lala Calvey [facility] Start: 12-16-2021 End: 12-16-2021 ambulatory Lala Hinds Other [employer] Other Start: 12-16-2021 Postop follow up vis it related to original px Lala Hinds [facility] Start: 12-14-2021 Encounter for preprocedural laboratory examination LALA SORENDEBRA [facility] Start: 12-07-2021 End: 12-08-2021 Encounter for preprocedural laboratory examination LALA HINDS Facility:[facility] Start: 12-07-2021 End: 12-08-2021 ambulatory LALA HINDS [place] [employer] Other Start: 12-07-2021 Encounter for other preprocedural examination Lala Hinds [facility] Start: 12-07-2021 [facility] Start: 12-05-2021 End: 12-05-[address] CINDY SANTIAGO Facility:[facility] Procedures Date Procedure Procedure Detail Performing Clinician Start: 03-07-2023 Appendectomy Dyan TREVINO Start: 09-21-2020 Cystoscopy Serafin [place] Start: 09-16-2020 Cystoscopy Serafin [place] Start: 09-09-2020 Extracorporeal shock wave lithotripsy of calculus of kidney Serafin [facility] Start: 07-31-2019 Cystoscopic removal of ureteric stent Serafin [facility] Comment on above: CYSTO LEFT STENT REM OVAL LOCAL Start: 07-17-2019 Extracorporeal shock wave lithotripsy of calculus of kidney Serafin COOK Start: 07-13-2019 cysto, LT RG pyelogr am, LT double-J placement Serafin [facility] Start: 10-08-2017 Cholecystectomy Serafin [facility] Colonoscopy Serafin [facility] History of cervical spine fusion Dyan MASSEY neck fusion Serafin ARAGON Tonsillectomy Serafin ARAGON Plan of Treatment Date Care Activity Detail Author Start: 04-11-2023 ambulatory Ambulatory Facility:[facility] Immunizations Immunization Date Immunization Notes Care Provider Fa cility 06-11-2021 SARS-CoV-2 (COVID-19 ) mRNA-1273 vaccine Dyan MASSEY General Surgery [facility] Comment on above: Result Comment: 2022: [id number] 10-15-2020 SARS-CoV-2 (COVID-19 ) mRNA-1273 vaccine Dyan SHERL [facility] 09-17-2020 SARS-CoV-2 (COVID-19 ) mRNA-1273 vaccine Dyan SHERL [facility] 04-23-2019 influenza virus vaccine, live, attenuated, for intranasal use Serafin ARAGON [facility] Payers Date Payer Category Payer Medicare [id number] 2023 Unknown [id number] 2020 Unknown 1959 Unknown [id number] 2. [id number] 1960 Unknown [id number] 2.16.84 [id number] 1960 Unknown [id number] 2.16.84 [id number] 1960 Unknown [id number] 2.16.84 [id number] 1960 Unknown [id number] 2.16.84 [id number] 1960 Unknown [id number] 2.16.8 [id number] 1960 Unknown [id number] 2.16.8 [id number] Social History Date Type Detail Facility Sex Assigned At [facility] [employer] Other Start: 03-20-2022 Tobacco smoking status Never s moked tobacco (finding) [facility] Start: 03-20-2023 Tobacco smoking status Ex-smoker (fi nding) [facility] Tobacco smoking status Never [facility] Medical Equipment Procedure Code Equipment Code Equipment Original Text Equipment Identifier Dates EXTRACORPOREAL S HOCK WAVE LITHOTRIPSY Serafin ARAGON MD 09/09/20 Unknown Ureter R {[id number]{ [id number] FDA Start: 09-09-2020 CYSTOSCOPY URETE ROSCOPY Serafin ARAGON MD 09/16/20 Unknown Ureter R {[id number]{ [id number] FDA Start: 09-16-2020 Functional Status Date Assessment Result Facility 03-20-2023 Functional Status N/A [facility] 03-20-2022 Functional Status N/A [facility] Clinical Notes 12-07-2021 to 03-20-2022 Note Date & Type Note Facility 03-20-2022 Hospital Discharg e instructions Patient Education 03/20/2022 08:07:07 Kidney Stones, Anak-kn-Lcbn Kidney Stones Kidney stones are rock-like masses that form inside of the kidneys. Kidneys are organs that make pee (urine). A kidney stone may move into other parts of the urinary tract, including: The tubes that connect the kidneys to the bladder (ureters). The bladder. The tube that carries urine out of the body (urethra). Kidney stones can cause very bad pain and can block the flow of pee. The stone usually leaves your body (passes) through your pee. You may need to have a doctor take out the stone. What are the causes? Kidney stones may be caused by: A condition in which certain glands make too much parathyroid hormone (primary hyperparathyroidism). A buildup of a type of crystals in the bladder made of a chemical called uric acid. The body makes uric acid when you eat certain foods. Narrowing (stricture) of one or both of the ureters. A kidney blockage that you were born with. Past surgery on the kidney or the ureters, such as gastric bypass surgery. What increases the risk? You are more likely to develop this condition if: You have had a kidney stone in the past. You have a family history of kidney stones. You do not drink enough water. You eat a diet that is high in protein, salt (sodium), or sugar. You are overweight or very overweight (obese). What are the signs or symptoms? Symptoms of a kidney stone may include: Pain in the side of the belly, right below the ribs (flank pain). Pain usually spreads (radiates) to the groin. Needing to pee often or right away (urgently). Pain when going pee (urinating). Blood in your pee (hematuria). Feeling like you may vomit (nauseous). Vomiting. Fever and chills. How is this treated? Treatment depends on the size, location, and makeup of the kidney stones. The stones will often pass out of the body through peeing. You may need to: Drink more fluid to help pass the stone. In some cases, you may be given fluids through an IV tube put into one of your veins at the hospital. Take medicine for pain. Make changes in your diet to help keep kidney stones from coming back. Sometimes, medical procedures are needed to remove a kidney stone. This may involve: A procedure to break up kidney stones using a beam of light (laser) or shock waves. Surgery to remove the kidney stones. Follow these instructions at home: Medicines Take tlvu-tbk-xaygwbn and prescription medicines only as told by your doctor. Ask your doctor if the medicine prescribed to you requires you to avoid driving or using heavy machinery. Eating and drinking Drink enough fluid to keep your pee pale yellow. You may be told to drink at least 8 10 glasses of water each day. This will help you pass the stone. If told by your doctor, change your diet. This may include: ?Limiting how much salt you eat. ?Eating more fruits and vegetables. ?Limiting how much meat, poultry, fish, and eggs you eat. Follow instructions from your doctor about eating or drinking restrictions. General instructions Collect pee samples as told by your doctor. You may need to collect a pee sample: ?24 hours after a stone comes out. ?8 12 weeks after a stone comes out, and every 6 12 months after that. Strain your pee every time you pee (urinate), for as long as told. Use the strainer that your doctor recommends. Do not throw out the stone. Keep it so that it can be tested by your doctor. Keep all follow-up visits as told by your doctor. This is important. You may need follow-up tests. How is this prevented? To prevent another kidney stone: Drink enough fluid to keep your pee pale yellow. This is the best way to prevent kidney stones. Eat healthy foods. Avoid certain foods as told by your doctor. You may be told to eat less protein. Stay at a healthy weight. Where to find more information National Kidney Foundation (NKF): www.kidney.org Urology Care Foundation (UCF): www.urologyhealth.org Contact a doctor if: You have pain that gets worse or does not get better with medicine. Get help right away if: You have a fever or chills. You get very bad pain. You get new pain in your belly (abdomen). You pass out (faint). You cannot pee. Summary Kidney stones are rock-like masses that form inside of the kidneys. Kidney stones can cause very bad pain and can block the flow of pee. The stones will often pass out of the body through peeing. Drink enough fluid to keep your pee pale yellow. This information is not intended to replace advice given to you by your health care provider. Make sure you discuss any questions you have with your health care provider. Document Released: 12/11/2008 Document Revised: 11/11/2019 Document Reviewed: 11/11/2019 Elsevier Patient Education 2020 [employer] Follow Up Care 09/07/2021 09:12:58 With:MARGO SIMON, Serafin Mixon, URL Address: [address] [address]- When:Within 6 Month(s) [facility] 03-15-2022 Evaluation note Encounter Date Diagnosis Assessment Notes Mar, Laceration of right hand, foreign body presence unspecified, initial encounter (ICD-10 - S61.411A) Mar, Laceration of other specified muscles, fascia and tendons at wrist and hand level, right hand, initial encounter (ICD-10 - S66.821A) Activity as tolerated, no restrictions Mar, Unspecified open wound of right hand, initial encounter (ICD-10 - S61.401A) Mar, Other specified postprocedural states (ICD-10 - Z98.890) [employer] Other 08-03-2022 Evaluation note* Encounter Date Diagnosis Assessment Notes Treatment Notes Treatment Clinical Notes Feb, Laceration of right hand, foreign body presence unspecified, initial encounter (ICD-10 - S61.411A) Feb, Laceration of other specified muscles, fascia and tendons at wrist and hand level, right hand, initial encounter (ICD-10 - S66.821A) Discussed he can progress activity as tolerated. Discussed the tendon should be very strong at this point. Discussed different options for scar management. Feb, Unspecified open wound of right hand, initial encounter (ICD-10 - S61.401A) Feb, Other specified postprocedural states (ICD-10 - Z98.890) [employer] Other 07-06-2022 Evaluation note* Encounter Date Diagnosis Assessment Notes Treatment Notes Treatment Clinical Notes Jan, Laceration of right hand, foreign body presence unspecified, initial encounter (ICD-10 - S61.411A) Jan, Laceration of other specified muscles, fascia and tendons at wrist and hand level, right hand, initial encounter (ICD-10 - S66.821A) May progress with TKO splint in place. Avoid strenuous use and heavy activity when not in brace Jan, Unspecified open wound of right hand, initial encounter (ICD-10 - S61.401A) Jan, Other specified postprocedural states (ICD-10 - Z98.890) [employer] Other 06-10-2022 Evaluation note* Encounter Date Diagnosis Assessment Notes Treatment Notes Treatment Clinical Notes Dec, Laceration of right hand, foreign body presence unspecified, initial encounter (ICD-10 - S61.411A) Dec, Laceration of other specified muscles, fascia and tendons at wrist and hand level, right hand, initial encounter (ICD-10 - S66.821A) Appears to be healing well after surgery. Discussed no lifting more than 2-5lbs. Instructed on non resistive exercises. Instructed to wear the brace at night while sleeping and while out of the house. Instructed to kareen tape the fingers together while at home. Dec, Unspecified open wound of right hand, initial encounter (ICD-10 - S61.401A) Dec, Other specified postprocedural states (ICD-10 - Z98.890) [employer] Other 06-01-2022 Evaluation note* Encounter Date Diagnosis Assessment Notes Treatment Notes Treatment Clinical Notes Dec, Laceration of right hand, foreign body presence unspecified, initial encounter (ICD-10 - S61.411A) Dec, Laceration of other specified muscles, fascia and tendons at wrist and hand level, right hand, initial encounter (ICD-10 - S66.821A) Extensive discussion about current condition and treatment options available.Discussed conservative versus surgical treatment options. Surgical treatment discussed in detail, including procedure, risks, recovery and restrictions. Patient was in understanding and wishes to proceed with tendon repair. Discussed this injury is likely to develop stiffness and we will plan to start early motion, without any resistance exercises. Dec, Unspecified open wound of right hand, initial encounter (ICD-10 - S61.401A) Dec, Pre-op exam (ICD-10 - Z01.818) [employer] Other Evaluation + Plan note Future Appointments Appointment Date:09/25/2022 08:45:00 AM Scheduled Provider:Serafin ARAGON MD Location: Appointment Type:URO Office Visit [facility] Evaluation + Plan note Future Appointments Appointment Date:04/11/2023 08:00:00 AM Scheduled Provider:Serafin ARAGON MD Location: Appointment Type:URO Office Visit General Surgery [facility] History general Narrative - Reported* Type Description Date Medical History kidney stones Medical History metformin Surgical History gallbladder Surgical History tonsillectomy Surgical History lithotripsy Surgical History cervical fusion Surgical History kidney stents\ [employer] Other Hospital course Narrative No data available for this section [facility] Hospital Discharge instructions No data available for this section General Surgery [facility] Progress note No data available for this section [facility] Summary Purpose Family History No Family History Records FoundNo Family History Records FoundNo Family History Records Found Advance Directives No Advanced Directives Records FoundNo Advanced Directives Records FoundNo Advanced Directives Records Found Additional Source Comments REASON FOR VISIT (unrecogniz ed section and content) Recheck Right Ring FingerRig ht Ring Finger LacerationRecheck Right Ring FingerRecheck Right Ring FingerRecheck Right Ring Finger (unrecognized sect ion and content) No Status Records FoundNo Status Records FoundNo Status Records Found INFORMATION SOURCE (unrecogn ized section and content) DATE CREATED AUTHOR 01/17/2022 [facility] DATE CREATED AUTHOR AUTHOR'S ORGANIZ ATION 09/17/2022 [facility] DATE CREATED AUTHOR AUTHOR'S ORGANIZ ATION 03/21/2023 [facility] Care Team (unrecognized sect ion and content) Personnel Name: CINDY SANTIAGO JR, DO Address: [address] [place], [place] [phone] Personnel Name: CINDY SANTIAGO JR, DO Address: Address: [address] [place] [address] FOR RECORDS PERTAINING TO PATIENTS WHO ARE OR HAVE BEEN ENROLLED IN A CHEMICAL DEPENDENCY/SUBSTANCEABUSE PROGRAM, SOME INFORMATION MAY BE OMITTED. This clinical summary was aggregated from multiple sources. Caution should be exercised in using it in the provision of clinical care. This summary normalizes information from multiple sources, and as a consequence, information in this document may materially change the coding, format and clinical context of patient data. In addition, data may be omitted in some cases. CLINICAL DECISIONS SHOULD BE BASED ON THE PRIMARY CLINICAL RECORDS. [facility] [employer] [facility]. provides no warranty or guarantee of the accuracy or completeness of information in this document.
[2024-10-21 09:26] VITALS: BP 141/73; PULSE 87; TEMP 36.5; O2SAT 98; BMI 26.4
[2024-10-21 09:43] LABS: Bilirubin Urine NEGATIVE (NEGATIVE); Blood Urine NEGATIVE (NEGATIVE); Clarity Urine CLEAR (CLEAR); Color Urine YELLOW (YELLOW); Glucose Urine UA 500 mg/dL (NEGATIVE); Ketones Urine NEGATIVE (NEGATIVE); Leukocyte Esterase Urine NEGATIVE (NEGATIVE); Nitrite Urine NEGATIVE (NEGATIVE); Protein Urine NEGATIVE (NEG/TRACE); Urobilinogen Urine 0.2 EU/dL (0.2-1.0)
[2024-10-21 09:44] LABS: Urine Microscopic Indicated NO
--- NOTE | 2024-10-21 10:03 | CT_ITS ---
The [address] [address] Patient Name: DYAN HARRELL MRN: [id number] date: 1960 Sex: M Assigned Patient Location: ER Current Patient Location: ER Accession/Order Number: [id number] Exam Date: 10/21/2024 10:30 Report Date: 10/21/2024 10:40 At the request of: JANETH VÁSQUEZ MD Procedure: CT abdomen pelvis wo con CT ABDOMEN AND PELVIS WITHOUT CONTRAST COMPARISON: 03/07/2023 CLINICAL DATA: Right flank and groin pain. History of kidney stones. Spiral images were obtained through the abdomen pelvis without contrast. This CT exam was performed using one or more following dose reduction techniques: Automated exposure control, adjustment of the mA and/or kV according to patient size, or use of iterative reconstruction technique. Limited cuts through the lung bases show no contributory findings. Evaluation of the intra-abdominal organs is slightly limited by the absence of contrast. The gallbladder is surgically absent. No common duct stones are noted. No intrahepatic masses are seen. There are increasing calcifications within the pancreas that may relate to chronic pancreatitis. The spleen and adrenal glands are unremarkable. There is minor bilateral perinephric fibrofatty stranding. There are bilateral renal stones measuring up to 6 mm on the left and 7 mm on the right. There are extrarenal pelves. No hydronephrosis is identified. No ureteral dilatation or stones are seen. There is atherosclerotic plaque at the aorta, iliac and some of the visceral arteries. There are small lymph nodes. No ascites is present. The small bowel loops are not distended. Stool is seen within the colon, greater on the right. There is subtle levoscoliotic curvature and degenerative changes at the spine. Images through the pelvis show prior appendectomy. There are normal caliber small bowel loops. There is stool at the distal colon. A few scattered descending and sigmoid diverticula are visualized, without associated active inflammation. There is additional atherosclerotic disease. There is a mildly prominent prostate with mass effect at the bladder trigone. The urinary bladder is poorly distended and the wall appears thickened. There are no bladder stones. No ascites is seen. Degenerative changes are visualized at the SI joints. CT/CT abdomen pelvis wo con IMPRESSION: INCREASING PANCREATIC CALCIFICATIONS SUSPICIOUS FOR CHRONIC PANCREATITIS. BILATERAL NEPHROLITHIASIS, WITHOUT OBSTRUCTION. MINOR DIVERTICULOSIS. PROSTATE HYPERTROPHY. UNDER DISTENDED URINARY BLADDER WITH WALL THICKENING. Impression dictated by: Ines Guzman M.D.10/21/2024 10:40 AM Dictation Location: [place] [address] Electronically authenticated by: [id number] Y Date: 10/21/2024 10:40
--- NOTE | 2024-10-21 10:04 | ED_ITS ---
HPI HPI - General Adult General Chief complaint: Abdominal Pain Stated complaint: RIGHT FLANK PAIN Time Seen by Provider: 10/21/24 10:02 Source: patient Mode of arrival: walk-in Limitations: no limitations History of Present Illness HPI narrative: This 64-year-old male patient presents to ED stating 6 days ago he started noticing some penile pain and discomfort. He has a history of kidney stones. He passed a stone in his urine 3 days ago. He has been experiencing right flank pain since then that has not resolved. He denies nausea, vomiting or diarrhea, chills or fever. He had some leftover antibiotics at home that he has been taking twice a day since then. Patient is status postcholecystectomy and appendectomy. He is diabetic and takes semaglutide, metformin and Farxiga. He takes hydrochlorothiazide for his kidney stones. Related Data Home Medications ?Medication ?Instructions ?Recorded ?Confirmed hydrochlorothiazide 12.5 mg capsule 12.5 mg PO DAILY 03/07/23 03/07/23 semaglutide 7 mg tablet (Rybelsus) 7 mg PO DAILY 03/07/23 03/07/23 tamsulosin 0.4 mg capsule (Flomax) 0.4 mg PO DAILY 03/07/23 03/07/23 Previous Rx's ?Medication ?Instructions ?Recorded hydrocodone 5 mg-acetaminophen 325 1 tab PO Q6H PRN pain 5 days #10 03/07/23 mg tablet tabs ketorolac 10 mg tablet 10 mg PO TID PRN pain 4 days #12 10/21/24 tabs Allergies Allergy/AdvReac Type Severity Reaction Status Date / Time No Known Drug Allergies Allergy Verified 03/07/23 08:36 Opioid HPI Opioid Management Most Recent Opioid Data: Last Pain Scale 3 03/07/23 15:10 03/07/23 Review of Systems ROS Status of ROS 10 or more systems reviewed and unremark able except as noted in history and below PFSH PFSH Social History Little interest or pleasure in doing things: not at all Feeling down, depressed, or hopeless: not at all Exam Narrative Exam Narrative: Afebrile and nondistressed. HEENT exam is normal to inspection. Supple. Lung sounds are clear to auscultation bilaterally with good air entry. Heart has regular rate and rhythm. Abdomen soft with some right flank tenderness but without guarding or peritoneal signs. He has a negative Scott sign and no CVA tenderness. There is no organomegaly or fluid wave. Lower extremities are warm and dry. He does not have leg swelling or pedal edema and there is no calf tenderness. Speech and mentation are clear and intact and there is no facial asymmetry. He moves all extremities actively. Constitutional Vital Signs, click to edit/add: Last Vital Signs Temp 97.7 F 10/21/24 09:26 Pulse 87 10/21/24 09:26 Resp 18 10/21/24 09:26 BP 141/73 10/21/24 09:26 Pulse Ox 98 10/21/24 09:26 O2 Del Method Room Air 10/21/24 09:26 Course Vital Signs Vital signs: Vital Signs Temperature 97.7 F 10/21/24 09:26 Pulse Rate 87 10/21/24 09:26 Respiratory Rate 18 10/21/24 09:26 Blood Pressure 141/73 10/21/24 09:26 Pulse Oximetry 98 10/21/24 09:26 Oxygen Delivery Method Room Air 10/21/24 09:26 Temperature 97.7 F 10/21/24 09:26 Pulse Rate 87 10/21/24 09:26 Respiratory Rate 18 10/21/24 09:26 Blood Pressure 141/73 10/21/24 09:26 Pulse Oximetry 98 10/21/24 09:26 Oxygen Delivery Method Room Air 10/21/24 09:26 Medical Decision Making MDM Narrative Medical decision making narrative: Patient's urinalysis did not show signs of infection. His white count and hemoglobin were normal. Blood glucose was slightly elevated at 194. Serum lipase is 80 which is barely above normal and not felt to be significant. Urinalysis does not show signs of infection. CT scan of the abdomen pelvis did not show signs of ureteral obstruction on the right side. Patient has bilateral nephrolithiasis without obstruction. Increasing pancreatic calcifications are reported suspicious for chronic pancreatitis. There is prostate hypertrophy. Patient is placed on Toradol for pain and is referred to his urologist for further management and is to call for early appointment. He may return for wor sening symptoms. Lab Data Labs: Lab Results 10/21/24 10/21/24 Range/Units 09:25 10:01 WBC 7.2 (4.0-11.0) 10^3/uL RBC 4.81 (4.70-6.10) 10^6/uL Hgb 14.2 (14.0-18.0) g/dL Hct 41.1 L (42.0-54.0) % MCV 85.4 (80.0-94.0) fL MCH 29.5 (25.9-34.0) pg MCHC 34.5 (29.9-35.2) g/dL RDW 13.5 (11.0-15.0) % Plt Count 339 (150-450) 10^3/uL MPV 9.4 L (9.5-13.5) fL Neut % (Auto) 61.1 (43.0-75.0) % Lymph % (Auto) 27.2 (20.5-60.0) % [place] % (Auto) 7.4 (1.7-12.0) % Eos % (Auto) 3.1 (0.9-7.0) % Baso % (Auto) 0.8 (0.2-2.0) % Neut # (Auto) 4.4 (1.4-6.5) 10^3/uL Lymph # (Auto) 2.0 (1.2-3.8) 10^3/uL [place] # (Auto) 0.5 (0.3-0.8) 10^3/uL Eos # (Auto) 0.2 (0.0-0.7) 10^3/uL Baso # (Auto) 0.1 (0.0-0.1) 10^3/uL Abs Immat Gran (auto) 0.03 (0.00-0.03) 10^3/uL Imm/Tot Granulo (auto) 0.4 (0.0-0.5) % Sodium 135 L (136-145) mmol/L Potassium 3.9 (3.5-5.1) mmol/L Chloride 101 (98-107) mmol/L Carbon Dioxide 28.0 (21.0-32.0) mmol/L Anion Gap 9.9 BUN 18.0 (7.0-18.0) mg/dL Creatinine 0.97 (0.70-1.30) mg/dL Est GFR ( Amer) >60 (>=60 mL/min/1.73m^2) Est GFR (Non-Af Amer) >60 (>=60 mL/min/1.73m^2) BUN/Creatinine Ratio 18.6 Glucose 194 H (74-106) mg/dL Calcium 10.7 H (8.5-10.1) mg/dL Total Bilirubin 0.5 (0.2-1.0) mg/dL AST 17 (15-37) U/L ALT 33 (16-63) U/L Alkaline Phosphatase 70 (46-116) U/L Total Protein 7.9 (6.4-8.2) g/dL Albumin 3.8 (3.4-5.0) g/dL Globulin 4.1 g/dL Albumin/Globulin Ratio 0.9 Lipase 80.0 H (16.0-77.0) U/L Urine Color Yellow (YELLOW) Urine Clarity Clear (CLEAR) Urine pH 6.0 (5.0-9.0) Ur Specific Drain 1.020 (1.005-1.025) Urine Protein Negative (NEG/TRACE) mg/dL Urine Glucose (UA) 500 A (NEGATIVE) mg/dL Urine Ketones Negative (NEGATIVE) mg/dL Urine Occult Blood Negative (NEGATIVE) Urine Nitrite Negative (NEGATIVE) Urine Bilirubin Negative (NEGATIVE) Urine Urobilinogen 0.2 (0.2-1.0) EU/dL Ur Leukocyte Esterase Negative (NEGATIVE) Discharge Plan Discharge Chief Complaint: Abdominal Pain Clinical Impression: Right flank pain Patient Disposition: Home, Self-Care Time of Disposition Decision: 12:19 Condition: Good Mode of Transportation: Private Vehicle Prescriptions / Home Meds: New ketorolac 10 mg tablet 10 mg PO TID PRN (Reason: pain) 4 Days Qty: 12 0RF No Action hydrocodone-acetaminophen 5-325 mg tablet 1 tab PO Q6H PRN (Reason: pain) 5 Days Qty: 10 0RF hydrochlorothiazide 12.5 mg capsule 12.5 mg PO DAILY tamsulosin [Flomax] 0.4 mg capsule 0.4 mg PO DAILY Rybelsus 7 mg tablet 7 mg PO DAILY Print Language: Swedish Instructions: Flank Pain (ED) Additional Instructions: Drink extra fluids. Follow-up with your urologist soon. Return for worsening symptoms. Referrals: CINDY SANTIAGO DO [Primary Care Provider] - 1 week Derik Marrero MD [Physician] - As soon as possible
[2024-10-21 10:10] LABS: Basophils Absolute Auto 0.1 10^3/uL (0.0-0.1); Basophils Percent Auto 0.8 % (0.2-2.0); Eosinophils Absolute Auto 0.2 10^3/uL (0.0-0.7); Eosinophils Percent Auto 3.1 % (0.9-7.0); Hematocrit 41.1 % (42.0-54.0); Hemoglobin 14.2 g/dL (14.0-18.0); Immature Granulocytes Abs Auto 0.03 10^3/uL (0.00-0.03); Immature Granulocytes Pct Auto 0.4 % (0.0-0.5); Lymphocytes Percent Auto 27.2 % (20.5-60.0); Mean Corpuscular HGB Conc 34.5 g/dL (29.9-35.2); Mean Corpuscular Hemoglobin 29.5 pg (25.9-34.0); Mean Corpuscular Volume 85.4 fL (80.0-94.0); Mean Platelet Volume 9.4 fL (9.5-13.5); Monocytes Absolute Auto 0.5 10^3/uL (0.3-0.8); Monocytes Percent Auto 7.4 % (1.7-12.0); Neutrophils Absolute Auto 4.4 10^3/uL (1.4-6.5); Neutrophils Percent Auto 61.1 % (43.0-75.0); Platelet Count 339 10^3/uL (150-450); Red Blood Count 4.81 10^6/uL (4.70-6.10); Red Cell Distribution Width 13.5 % (11.0-15.0); White Blood Count 7.2 10^3/uL (4.0-11.0)
[2024-10-21 10:25] LABS: Alanine Aminotransferase 33 U/L (16-63); Albumin Globulin Ratio 0.9; Albumin Level 3.8 g/dL (3.4-5.0); Alkaline Phosphatase 70 U/L (46-116); Anion Gap 9.9; Aspartate Amino Transferase 17 U/L (15-37); BUN Creatinine Ratio 18.6; Bilirubin Total 0.5 mg/dL (0.2-1.0); Calcium 10.7 mg/dL (8.5-10.1); Chloride 101 mmol/L (98-107); Estimated GFR (African America >60 (>=60 mL/min/1.73m^2); Estimated GFR (Non-African Ame >60 (>=60 mL/min/1.73m^2); Globulin 4.1 g/dL; Glucose 194 mg/dL (74-106); Potassium 3.9 mmol/L (3.5-5.1); Sodium 135 mmol/L (136-145); Total Protein 7.9 g/dL (6.4-8.2)
== END 2024-10-21 12:28 | disposition home or self-care (01) ==
PROVIDERS: Emergency Provider Emergency Medicine; PCP Internal Medicine
DX: R10.9 Unspecified abdominal pain (principal); Z87.442 Personal history of urinary calculi; E11.9 Type 2 diabetes mellitus without complications; Z79.85 Long-term (current) use of injectable non-insulin antidiabetic drugs; Z79.4 Long term (current) use of insulin; N20.0 Calculus of kidney; K57.90 Diverticulosis of intestine, part unspecified, without perforation or abscess without bleeding
CPT/HCPCS: 36415; 74176; 80053; 81003; 83690; 85025; 99284

== ENCOUNTER 2025-02-13 04:23 | Emergency (ER) | payer MEDICARE, OTHER, SELFPAY ==
--- OUTSIDE RECORDS SUMMARY | 2020-10-15 05:00 | XMS_ITS | Continuity of Care Document ---
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 [address] [place], [place], [id number], [place]. tel:[phone] [facility], [address] [place], [place], [id number], tel:[phone] COVID [facility] No Information Armin REYNAGA Rivas. [address] [place], [place], [id number], [place]. tel:[phone] Family History Family Member Type Diagnosis Age At Onset No Information Immunizations Vaccine Date Status Comments Moderna COVID administered Source: New Im munization Record Moderna COVID administered Source: New Im munization Record Payers Payer name Insurance type Covered democrat ID Authoriza tion(s) [facility] [place] CI [id number] [employer] [place] CI [id number] [employer] [place] CI [id number] Social History Type Description Quantity Date Captured [...]
--- OUTSIDE RECORDS SUMMARY | 2024-04-04 04:30 | XMS_ITS ---
Author Organization [facility] [place] Address [address] [place] [address] Care Team Providers Care Toe Puller Name Role Phone Mirlande REYNAGAMarek Primary Care Provider Unavail able Derik Marrero Unavailable [phone] Allergies No Known Allergies REASON FOR VISIT w/ floydk & sophia Medications Medication SIG (Take, Route, Frequency, Duration) Notes Start Date End Date Status Potassium Chloride ER 20 MEQ 1 tablet wi th food Orally Once a day for 90 days 06/05/2023 Active hydroCHLOROthiazide 50 MG 1 tablet in th e morning Orally Once a day for 90 days 06/05/2023 Active Tadalafil (PAH) 20 MG 1 tablet Orally Once a day for 30 days 04/04/2024 Active Tamsulosin HCl 0.4 MG TAKE 1 CAPSULE BY MOUTH TWICE DAILY Oral for 90 Days Active Rybelsus Active hydroCHLOROthiazide 12.5 MG 1 tablet in the morning Orally Once a day for 30 day(s) Not-Taking Farxiga Active Social History Tobacco Use: Social History Observation Description Date Details (start date - stop date) Former Smoker NA - 07/09/2011 Tobacco Use/Smoking Question Answer Notes Patient is a former smoker When did you stop smoking? 07/09/2011 Alcohol Screen (Audit-C) Question Answer Notes Did you have a drink containing alcohol in the p ast year? Yes How often did you have a dri nk containing alcohol in the past year? Weekly (3 points) Points 3 Interpretation Negative Problems Problem Type SNOMED Code ICD Code Onset Dates Problem Status W/U Status Risk Notes Problem [id number] Male erectile dysfunction, unspecified (N52.9) Active confirmed Vital Signs Weight 201.2 lbs 04/04/2024 Height 72 in 04/04/2024 BMI 27.28 kg/m2 04/04/2024 Encounters Encounter Location Date Provider Diagnosis Urology [facility] [place] [address] [place] [address] 04/04/2024 Derik Marrero Calculus of kidney a nd ureter N20.2 ; Hypercalciuria R82.994 and Male erectile dysfunction, unspecified N52.9 Assessments Encounter Date Diagnosis (ICD Code) Assessment Notes Treatment Notes Treatment Clinical Notes Section Notes 04/04/2024 Calculus of kidney and ureter (ICD-10 - N20.2) 04/04/2024 Hypercalciuria (ICD-10 - R82.994) 04/04/2024 Male erectile dysfunction, unspecified (ICD-10 - N52.9) 04/04/2024 Other Cont HCTZ. Urinary Ca went from 400s down to 120. Working well Cont KCL for K supplementati on. KUB showed bilateral stones. Small. Will watch. Increase CaCitrate in diet. LOW OXYLATE DIET. Eating too many nuts. See back in 1 year with KUB. Plan Of Treatment Medication Medication Name Sig Start Date Stop Date Notes Tadalafil (PAH) 20 MG 1 tablet Orally On ce a day for 30 days 04/04/2024 Treatment Notes Assessment Notes Other Cont HCTZ. Urinary Ca went from 400s down to 120. Working well Cont KCL for K supplementation. KUB showed bilateral stones. Small. Will watch. Increase CaCitrate in diet. LOW OXYLATE DIET. Eating too many nuts. See back in 1 year with KUB. Future Test Test Name Order Date XR Abdomen AP (1 view) (KUB) * 5 Next Appt Details Follow Up: 1 Year, Reason: w SOPHIA Provider Name:Radiology Dinah danielle, 04/04/2025 12:00:00 AM, [address], [address] [facility] [address], [place], [address], Progress Notes * Mark PARK RDOB: [birth year] (64 yo M)Acc No.[id number]:04/04/2024 Patient: Mark PETERSON Provider: Heri Marrero MD :1960 A ge:64 Y S ex:Male Date:04/04/2024 Address:[address] [place] [address] [address], [id number] Pcp:Marek Nogueira, DO Check In:08:17 AM ESTCheck O ut:09:19 AM EST Subjective: * Chief Complaints: * W / litholink & kub * HPI: U rology: We see Adriel for a long history of kidney stones. He passes many large stones. He has needed URS in the past. Stones are CaOx. 2022 litholink showed very high Ca of 483 with otherwise normal parameters. He was started on HCTZ 50 and Ca now is 120. His Ox is very, very high from eating nuts. Kidney Stones H ow many kidney stones have you had prior to getting this one? 0 * ROS: G eneral/Constitutional: Fever d enies. W eight loss d enies. F atigue or Weakness d enies. G enitourinary: Incontinence d enies. F requent urination d enies.?Painful urination d enies. B lood in Urine d enies. * Active Problem List N20.2 Calculus of kidney a nd ureter Modified On:06/05/2023W/U Status:confirmed N52.9 Male erectile dysfun ction, unspecified Modified On:04/04/2024W/U Status:confirmed * Medical History: * Surgical History: a ppendectomy cholecystectomy neck fusion Right ESWL Bilateral laser lithotripsy * Hospitalization/Major Diagno stic Procedure: * Family History: M other: kidney stone . S ister(s): kidney stone . * Social History: T obacco Use: T obacco Use/Smoking P atient is a f ormer smoker W hen did you stop smoking? 0 07/09/2011 D rugs/Alcohol: A lcohol Screen (Audit-C) D id you have a drink containing alcohol in the past year? Y es H ow often did you have a drink containing alcohol in the past year? W eekly (3 points) P oints 3 I nterpretation N egative Caffeine I ntake: 1 -2 cups per day * Medications: T akingFarxiga hydroCHLOROthiazide 50 MG Tablet 1 tablet in the morning Orally Once a day Potassium Chloride ER 20 MEQ Tablet Extended Release 1 tablet with food Orally Once a day Rybelsus Tamsulosin HCl 0.4 MG Capsule TAKE 1 CAPSULE BY MOUTH TWICE DAILY Oral Taking Farxiga Taking hydroCHLOROthiazide 50 MG Tablet 1 tablet in the morning Orally Once a day Taking Potassium Chloride ER 20 MEQ Tablet Extended Release 1 tablet with food Orally Once a day Taking Rybelsus Taking Tamsulosin HCl 0.4 MG Capsule TAKE 1 CAPSULE BY MOUTH TWICE DAILY Oral Not- Taking/PRNhydroCHLOROthiazide 12.5 MG Tablet 1 tablet in the morning Orally Once a day Medication List reviewed and reconciled with the patientNot-Taking/PRN hydroCHLOROthiazide 12.5 MG Tablet 1 tablet in the morning Orally Once a day Medication List reviewed and reconciled with the patient * Allergies: N .K.D.A.no[Allergies Verified] Objective: * Vitals: W t:201.2lbs, Ht: 72 in, BMI:27.28Index, Ht-cm: 182.88 cm, Wt-k.26 kg. Assessment: * Assessment: 1. C alculus of kidney and ureter - N20.2 (Primary) 2 . H ypercalciuria - R82.994 3 . M zach erectile dysfunction, unspecified - N52.9 Plan: * Treatment: 2. O thers Notes: Cont HCTZ. Urinary Ca went from 400s down to 120. Working well Cont KCL for K supplementation. KUB showed bilateral stones. Small. Will watch. Increase CaCitrate in diet. LOW OXYLATE DIET. Eating too many nuts. See back in 1 year with KUB. * Procedure Codes: * Follow Up: 1 Year (Reason: w KUB) * * Sign off status: Completed Visit Status: C HK (Check Out) true * Provider: Heri Marrero MD Date: 0 04/04/2024 Generated for Clemenciai eneida/Martha/eTransmitting on: 0 02/13/2025 04:30 AM EDT History and Physical Notes * HPI (History of Present Illness) Category Sub-Category Detail Notes Category Not es Urology Kidney Stones How many kidney stones have you had prior to getting this one?: 0
--- OUTSIDE RECORDS SUMMARY | 2024-12-02 04:20 | XMS_ITS ---
Author Organization The [facility] in [place] Address [address] [place] [address] Care Team Providers Care Sharepoint Trainer Name Role Phone Mirlande REYNAGA Marek Primary Care Provider Unavail able Derik Marrero Unavailable [phone] Allergies No Known Allergies Results Component Value Reference Range Notes LITHOLINK, 24 HR URINE (Not yet reviewed by provider) Interpretation: Performing Lab: Notes/Report: REASON FOR VISIT Kidney Stones Medications Medication SIG (Take, Route, Frequency, Duration) Notes Start Date End Date Status Tamsulosin HCl 0.4 MG TAKE 1 CAPSULE BY MOUTH TWICE DAILY Oral for 90 Days Active hydroCHLOROthiazide 12.5 MG 1 tablet in the morning Orally Once a day for 30 day(s) Not-Taking Rybelsus Active Tadalafil (PAH) 20 MG 1 tablet Orally Once a day for 30 days 04/04/2024 Active Potassium Chloride ER 20 MEQ 1 tablet wi th food Orally Once a day for 90 days 06/05/2023 Active hydroCHLOROthiazide 50 MG 1 tablet in th e morning Orally Once a day for 90 days 06/05/2023 Active metFORMIN HCl Active Farxiga Active Social History Tobacco Use: Social History Observation Description Date Details (start date - stop date) Former Smoker NA - 07/09/2011 Tobacco Use/Smoking Question Answer Notes Patient is a former smoker When did you stop smoking? 07/09/2011 AUDIT-C (Standard) Question Answer Notes Did you have a drink contain ing alcohol in the past year? Yes How often did you have a dri nk containing alcohol in the past year? Never (0 point) How many drinks did you have on a typical day when you were drinking in the past year? 1 or 2 drinks (0 point) How often did you have six o r more drinks on one occasion in the past year? 2 to 3 times per week (3 points) Points 3 Interpretation Negative Vital Signs Weight 200.2 lbs 12/02/2024 Height 72 in 12/02/2024 BMI 27.15 kg/m2 12/02/2024 Procedures Procedure Date Ordered Date Performed Result Body Sit e ESWL 12/02/2024 12/03/2024 N/A Encounters Encounter Location Date Provider Diagnosis Urology [facility] [address] [place] [address] 12/02/2024 Derik Marrero Calculus of kidney a nd ureter N20.2 ; Hypercalciuria R82.994 and Male erectile dysfunction, unspecified N52.9 Assessments Encounter Date Diagnosis (ICD Code) Assessment Notes Treatment Notes Treatment Clinical Notes Section Notes 12/02/2024 Calculus of kidney and ureter (ICD-10 - N20.2) 12/02/2024 Hypercalciuria (ICD-10 - R82.994) 12/02/2024 Male erectile dysfunction, unspecified (ICD-10 - N52.9) 12/02/2024 Other Cont HCTZ. Recheck litholink. Discussed SWL and URS. 6-7mm on both sides. Plan Of Treatment Treatment Notes Assessment Notes Other Cont HCTZ. Recheck litholink. Discussed SWL and URS. 6-7mm on both sides. Pending Test Test Name Order Date LITHOLINK, 24 HR URINE 12/02/2024 Next Appt Details Follow Up: , Reason: SWL and then litholink 3 months later Provider Name:Radiology Prov ider, 04/04/2025 12:00:00 AM, [address], [address], [place], [address], Progress Notes * Mark PARK RDOB: [birth year] (64 yo M)Acc No.[id number]:12/02/2024 Patient: Tiny Mark GARRETT Provider: Heri Marrero MD :1960 A ge:64 Y S ex:Male Date:12/02/2024 Address:[facility] [address], [place], [id number] Pcp:Marek Nogueira, DO Check In:08:19 AM ESTCheck O ut:09:00 AM EST Subjective: * Chief Complaints: * K idney Stones * HPI: U rology: We see Adriel for a long history of kidney stones. He passes many large stones. He has needed URS in the past. Stones are CaOx. 2022 litholink showed very high Ca of 483 with otherwise normal parameters. He was started on HCTZ 50 and Ca now is 120. His Ox is very, very high from eating nuts. He passed stones again in Mar 2024 and again in early 2024. Kidney Stones H ow many kidney stones [...] did you stop smoking? 0 07/09/2011 D rug/Alcohol: A ROWAN-C (Standard) D id you have a drink containing alcohol in the past year? Y es H ow often did you have a drink containing alcohol in the past year? N ever (0 point) H ow many drinks did you have on a typical day when you were drinking in the past year? 1 or 2 drinks (0 point) H ow often did you have six or more drinks on one occasion in the past year? 2 to 3 times per week (3 points) P oints 3 I nterpretation N egative D rugs/Alcohol: C affeine I ntake: 1 -2 cups per day * Medications: T akingFarxiga hydroCHLOROthiazide 50 MG Tablet 1 tablet in the morning Orally Once a day metFORMIN HCl Potassium Chloride ER 20 MEQ Tablet Extended Release 1 tablet with food Orally Once a day Rybelsus Tadalafil (PAH) 20 MG Tablet 1 tablet Orally Once a day Tamsulosin HCl 0.4 MG Capsule TAKE 1 CAPSULE BY MOUTH TWICE DAILY Oral Taking Farxiga Taking hydroCHLOROthiazide 50 MG Tablet 1 tablet in the morning Orally Once a day Taking metFORMIN HCl Taking Potassium Chloride ER 20 MEQ Tablet Extended Release 1 tablet with food Orally Once a day Taking Rybelsus Taking Tadalafil (PAH) 20 MG Tablet 1 tablet Orally Once a day Taking Tamsulosin HCl 0.4 MG Capsule TAKE 1 CAPSULE BY MOUTH TWICE DAILY Oral Not-Taking/PRNhydroCHLOROthiazide 12.5 MG Tablet 1 tablet in the morning Orally Once a day Medication List reviewed and reconciled with the patientNot-Taking/PRN hydroCHLOROthiazide 12.5 MG Tablet 1 tablet in the morning Orally Once a day Medication List reviewed and reconciled with the patient * Allergies: N .K.D.A.no[Allergies Verified] Objective: * Vitals: W t:200.2lbs, Ht: 72 in, BMI:27.15Index, Ht-cm: 182.88 cm, Wt-k.81 kg. Assessment: * Assessment: 1. C alculus of kidney and ureter - N20.2 (Primary) 2 . H ypercalciuria - R82.994 3 . M zach erectile dysfunction, unspecified - N52.9 Plan: * Treatment: 2.?Others? Notes: Cont HCTZ. Recheck litholink. Discussed SWL and URS. 6-7mm on both sides. ?? * Procedure Codes: * Follow Up: R paco: SWL and then litholink 3 months later * * Sign off status: Completed Visit Status: C HK (Check Out) true * Provider: Heri Marrero MD Date: 0 12/02/2024 Generated for Ada monique/Martha/Jalenitting on: 0 02/13/2025 04:30 AM EDT History and Physical Notes * HPI (History of Present Illness) Category Sub-Category Detail Notes Category Not es Urology Kidney Stones How many kidney stones have you had prior to getting this one?: 0
[2025-02-13 04:28] VITALS: BP 133/82; PULSE 120; TEMP 36.8; O2SAT 97; BMI 26.4
--- OUTSIDE RECORDS SUMMARY | 2025-02-13 04:31 | XMS_ITS | Patient Health Record ---
Author Organization The [facility] in [place] Address [address] [place] [address] Care Team Providers Care Mouthpiece Maker Name Role Phone Mirlande Marek REYNAGA Primary Care Provider Unavail able Judith Love Unavailable [phone] Allergies No Known Allergies Results Component Value Reference Range Notes XR abdomen 1V (Not yet revie wed by provider) Interpretation: Performing Lab: Notes/Report: Source Facility: [place] [address] XRay Report Signed Patient: MARK PARK MR#: [id number] : 1960 Acct:[id number] Age/Sex: 63 / M ADM Date: 02/25/24 Loc: RAD Attending Dr: Judith Love M.D. Ordering Physician: Judith Love M.D. Date of Service: 02/25/24 Procedure(s): XR abdomen 1V Accession Number(s): [id number] cc: Judith Love M.D.; Physician,Non-Staff [facility] [place] [id number] Patient Name: MARK PARK MRN: [id number] date: 1960 Sex: M Assigned Patient Location: RAD Current Patient Location: Accession/Order Number: [id number] Exam Date: 02/25/2024 09:43 Report Date: 02/27/2024 04:32 At the request of: JUDITH LOVE Procedure: XR abdomen 1V EXAMINATION: XR abdomen 1V HISTORY: Calculus Of Kidney And Ureter COMPARISON: XR abdomen 03/14/2022 FINDINGS: KIDNEY/URETER - RIGHT: Multiple calcifications projecting over kidney. KIDNEY/URETER - LEFT: Multiple calcifications projecting over kidney. PELVIS: Numerous pelvic calcifications favoring phleboliths. No convincing ureteral stone. BOWEL: No abnormal dilation or deviation. BONES: No acute abnormality. OTHER: Negative. No abnormal gaseous collections. XR/XR abdomen 1V IMPRESSION: 1. Bilateral nephrolithiasis. No appreciable ureteral stones. Electronically authenticated by: MAURY DAVILA Date: 02/27/2024 04:32 Dictated By: Maury Davila M.D. Signed By: 02/27/24434 DD/ 1 TD/TT: [employer]: [place] [address] XRay Report Signed Patient: STACY PARK MR#: [id number] : 1960 Acct:[id number] Age/Sex: 63 / M ADM Date: 02/25/24 Loc: RAD Attending Dr: Judith Love M.D. Ordering Physician: Judith Love M.D. Date of Service: 02/25/24 Procedure(s): XR abdomen 1V Accession Number(s): [id number] cc: Judith Love M.D; Physician,Non-Staff [facility] [place] [id number] Patient Name: MARK PARK MRN: [id number] date: 1960 Sex: M Assigned Patient Location: RAD Current Patient Location: Accession/Order Numb er: [id number] Exam Date: 02/25/2024 09:43 Report Date: 02/27/2024 04:32 At the request of: JUDITH LOVE Procedure: XR abdomen 1V EXAMINATION: XR abdomen 1V HISTORY: Calculus Of Kidney And Ureter COMPARISON: XR abdomen 03/14/2022 FINDINGS: KIDNEY/URETER - RIGH T: Multiple calcifications projecting over kidney. KIDNEY/URETER - LEFT : Multiple calcifications projecting over kidney. PELVIS: Numerous pel tayler calcifications favoring phleboliths. No convincing ureteral stone. BOWEL: No abnormal d ilation or deviation. BONES: No acute abnormality. OTHER: Negative. No abnormal gaseous collections. X R/XR abdomen 1V IMPRESSION: 1. Bilateral nephrol ithiasis. No appreciable ureteral stones. Electronically authe nticated by: MAURY DAVILA Date: 02/27/2024 04:32 Dictated By: Maury Davila M.D. Signed By: 02/27/24434 DD/ 1 TD/TT: [employer]er: DARON 24 HR URINE (Not yet reviewed by provider) Interpretation: Performing Lab: Notes/Report: Reason For Referral No Information Medications Medication SIG (Take, Route, Frequency, Duration) Notes Start Date End Date Status Tamsulosin HCl 0.4 MG TAKE 1 CAPSULE BY MOUTH TWICE DAILY Oral for 90 Days Active hydroCHLOROthiazide 12.5 MG 1 tablet in the morning Orally Once a day for 30 day(s) Not-Taking Rybelsus Active Tadalafil (PAH) 20 MG 1 tablet Orally Once a day for 30 days 04/04/2024 Active hydroCHLOROthiazide 50 MG 1 tablet in th e morning Orally Once a day for 90 days 06/05/2023 Active Potassium Chloride ER 20 MEQ 1 [...] week (3 points) Points 3 Interpretation Negative Problems Problem Type SNOMED Code ICD Code Onset Dates Problem Status W/U Status Risk Notes Problem [id number] Male erectile dysfunction, unspecified (N52.9) Active confirmed Problem Calculus of kidney and ureter (241237136) Calculus of kidney and ureter (N20.2) Active confirmed Vital Signs Height 72 in 12/02/2024 Weight 200.2 lbs 12/02/2024 BMI 27.15 kg/m2 12/02/2024 Procedures Procedure Date Ordered Date Performed Result Body Sit e ESWL 12/02/2024 12/03/2024 N/A Encounters Encounter Location Date Provider Diagnosis Urology [address] [address] 04/04/2024 Judith Love Calculus of kidney a nd ureter N20.2 ; Hypercalciuria R82.994 and Male erectile dysfunction, unspecified N52.[address] [address] 12/02/2024 Judith Love Calculus of kidney a nd ureter N20.2 ; Hypercalciuria R82.994 and Male erectile dysfunction, unspecified N52.[address] [address] 02/03/2025 Judith Love Assessments Encounter Date Diagnosis (ICD Code) Assessment Notes Treatment Notes Treatment Clinical Notes Section Notes 04/04/2024 Calculus of kidney and ureter (ICD-10 - N20.2) 04/04/2024 Hypercalciuria (ICD-10 - R82.994) 12/02/2024 Calculus of kidney and ureter (ICD-10 - N20.2) 12/02/2024 Hypercalciuria (ICD-10 - R82.994) 04/04/2024 Male erectile dysfunction, unspecified (ICD-10 - N52.9) 12/02/2024 Male erectile dysfunction, unspecified (ICD-10 - N52.9) 04/04/2024 Other Cont HCTZ. Urinary Ca went from 400s down to 120. Working well Cont KCL for K supplementati on. KUB showed bilateral stones. Small. Will watch. Increase CaCitrate in diet. LOW OXYLATE DIET. Eating too many nuts. See back in 1 year with KUB. 12/02/2024 Other Cont HCTZ. Recheck litholink. Discussed SWL and URS. 6-7mm on both sides. Plan Of Treatment Pending Test Test Name Order Date LITHOLINK, 24 HR URINE 04/17/2023 LITHOLINK, 24 HR URINE 12/02/2024 XR abdomen 1V 02/27/2024 Future Test Test Name Order Date LITHOLINK, 24 HR URINE 06/05/2023 XR Abdomen AP (1 view) (KUB) * 3 Next Appt Details Provider Name:Radiology Prov ider, 04/04/2025 12:00:00 AM, [address], [address] [facility], [place], [address], Insurance Providers Payer Name Payer Address Payer Phone Subscriber Number Group Number Insured Name Patient Relationship to Insured Coverage Start Date Coverage End Date [place] [address] [place] [address] [id number] Mark Park Self - patient is the insured 3 Medical (General) History Medical History History ICD Code Diabetes kidney stones Calculus of kidney and ureter N20.2 Hypercalciuria R82.994 Surgical History Surgery Date(Month/Year) appendectomy cholecystectomy neck fusion Right ESWL Bilateral laser lithotripsy
--- OUTSIDE RECORDS SUMMARY | 2025-02-13 04:31 | XMS_ITS | Clinical Summary ---
Author Organization [employer] Address [id number] [address] [place] [address] Care Team Providers Care Sleeping Bag Filler Name Role Phone Mirlande Calderon DO, Charles L Primary Care Provider Allergies No known active allergies Medications hydroCHLOROthiaz serenity (MICROZIDE) 12.5 mg capsule Take 12.5 mg by mouth daily. Active SAXAGLIPTIN HCL (ONGLYZA ORAL) Take by mouth. Active METFORMIN HCL (METFORMIN ORAL) Take by mouth. Active Active Problems No known active problems Family History Medical History Relation Name Comments Cancer Maternal Grandfather Thyroid cancer Sister Relation Name Status Comments Maternal Grandfather Sister Social History Tobacco Use Types Packs/Day Years Used Date Smoking Tobacco: Former Smokeless Tobacco: Never Alcohol Use Standard Drinks/Week Comments No 0 (1 standard drink = 0.6 oz pur e alcohol) Childcare Answer Date Recorded Childcare Unknown 12/19/2018 Employment Answer Date Recorded Employment Unknown 12/19/2018 Purpose - Life Answer Date Recorded Purpose and direction in life Unknown Sex and Gender Information Value Date Recorded Sex Assigned at Not on file Legal Sex Male 3:16 PM EDT Gender Identity Not on file Sexual Orientation Not on file Last Filed Vital Signs Vital Sign Reading Time Taken Comments Blood Pressure 150/80 10/31/2017 12:39 PM EDT Pulse - - Temperature - - Respiratory Rate - - Oxygen Saturation - - Inhaled Oxygen Concentration - - Weight 110.2 kg (243 lb) 10/31/2017 12:39 PM EDT Height 182.9 cm (6') 10/31/2017 12:39 PM EDT Body Mass Index 32.96 10/31/2017 12:39 PM EDT Plan of Treatment Health Maintenance Due Date Last Done Comments Depression Screening 1970 Tobacco Screening 1970 Adult BMI Screening 1976 Zoster (Shingles) Vaccine (2 of 3) 12/22/2014 10/27/2014 Fall Risk Screening 2023 Influenza Vaccine 2025 03/29/2021, , 04/11/2018, Additional history exists DTaP,Tdap and Td Vaccines (2 - Tdap) 12/06/2031 12/05/2021 Medical Devices Not on file Insurance MEDICARE Care Teams Sleeping Bag Filler Relationship Specialty Start Date End Date Marek Nogueira Jr., DO [address] [place] [id number] PCP - General Internal Medicine 09/27/17
--- OUTSIDE RECORDS SUMMARY | 2025-02-13 04:32 | XMS_ITS | CCD ---
Author Organization [facility] Care Team Providers Care Envelope Cutter Name Role Phone Lala Hinds Unavailable CINDY SANTIAGO JR Primary Care Physician BRITTANY Zhong, DR STEVENS Admitting Unavailable BRITTANY Zhong, DR STEVENS Consulting Unavailable PAMELA, DR WHITE Primary Care Unavailable BRITTANY Zhong, DR STEVENS Attending Unavailable TANJA BECKER Consulting Unavailable LALA HINDS Attending Unavailable LALA HINDS Admitting Unavailable PAMELA, DR WHITE Primary Care Unavailable LALA HINDS Consulting Unavailable PAMELA, DR WHITE Primary Care Unavailable CRISTINA OTERO Attending Unavailable CRISTINA OTERO Admitting Unavailable TRACEE, DR ROX Duong Consulting Unavailable CRISTINA OTERO Consulting Unavailable PAMELA, DR WHITE Primary Care Unavailable ARSENIO GOODWIN Attending Unavailable JUDITH ., JOSÉ LUIS DYKES Consulting UnavailARSENIO Choi Admitting Unavailable Serafin ARAGON Attending Unavailable Dyan MASSEY Attending Unavailable Derik Marrero Attending Unavailable CINDY SANTIAGO JR. Primary Care UnavailDerik Kumar Admitting Unavailable Derik Marrero Attending Unavailable CINDY SANTIAGO JR. Primary Care UnavailDerik Kumar Admitting Unavailable Allergies Allergy Classification Reported Allergen(s) Allergy Type Date of Onset Reaction(s) Facility (1 source) No Known Medication Allergies; Translations: [No Known Medication Allergies] Propensity to adverse reactions (disorder) [facility] Repository Medications Current Medications Medication Drug [...] Daily, # 90 cap(s), Refills(s) 3, Pharmacy: [facility], 183, cm, 03/20/22 7:58:00 EDT, [...] Onset: 03-20-2023 Episodic Calculus of urinary tract (11 sources) Kidney stone; Translations: [Calculus of kidney] [...] 03-20-2022 Chronic Other aftercare (1 source) 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; Translations: [OTH [facility] CURRENT DRUG THERAPY] Onset: 09-16-2022 Episodic Other aftercare (1 source) longterm (current) use of oral hypoglycemic drugs; Translations: [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 DX] Onset: 09-16-2022 Episodic [...] Results Test Name Value Interpretation Reference Range Facility Coding Summaryon 02-09-2025 Coding Summary HTMLBase 64 NwowynhhCTx5xFf+PGhlYW Q+FK9XKBVyH73ebGChaW0f W7EVMNvFZeqkTDIYQKuIJm MeblNeLN4iuVRjEXEa IC8+VA2rKZUuHaahmQMcj7 F2gKA9W21lst4gTRbgmCX4 SQPeNgBxyosgd3mzyEw6IY cuNmluOyBt CUXceA88EID8fC44Mr78aO JgwLAhc1jiwCd2CnGeNFVz DWV7oOahKAugo7YmMSOxV7 1cqRDbn8C2 EFOcwQiuiYNoQwEthZC1zN 0pLYalmacat4mernafGzz4 om19lLDmq1H2fCB8Z6Ddxi H5XPAkcKKx HfgosDKKqI7mkoweo5ifww veLjKaJZZmKVq3OWo4PNOy oFclBlWrWE10YZI6RXCihw HeI6YdAHIn pBwcFjE3z0U2Rt2AS8XGSj ysP7HHTGOTSMqptWK+PC90 yo16L9XrIdukBwx1SJVjMJ Q2lRR4aT0c EIRbGBxex7G6pXM2E7Gqdf Vkxo9ax9gnHRPkGNqsG41e oVZih4E5AMQtsIG6LLDjzP gjZqLtoL24 Oyc+RCOeaOqot6ZfImjam6 gac4xkeSp3ArwjOSSeqpBl dTztQVX0z0YrFj7dNNAdtU E9xFK4fB5g GuGdZmO3XVpmD319IoWoqJ TyAufpV43hN5PpoSC+PHRy Oqb1FDUveDofJQ0xI9CeON RpbmctbGVm yGquVP8bOAMyyppnORFhlD 0fLZBlV5j7NxQdJpK1NKms I3QvNSNvcqauLy04kV1pGu LeIlT0KZri Q2McudG4JZFziXZbNTljXB A3L60qr1Q1KIEpTUVbTTT4 nRO2xT2wgAjvywtfxOQabV sgdmVydGlj NZseEGheZ800SHBxpZiqJy NvZGluZyBEYXRlOiAgMDgv MDQvMjAyNTwvdGQ+PHRkIH H2mGtfUSCf zILaKTndLq2uzAcvePxdNF 8cFLTkyonjZXVtrB5bKMDe uSJbiJmdYG4iTZXwwnquw1 43NkSxFQV0 MUBhyDFpE8EfjY2vGpGkAU GiMMVwZ1MvjLRvLAjiP926 KVjmQmA6LJImejJeD3ZpFD FsaWduOiB0 g4M8Cm8Mx6ZjtepaG1IauH IhTgQxZhkhKDk8T7QsWqjz dHI+IU71TOVeRJ38CYd2JT R5uMvaTRqd XJWhA5IvzH5uOzViPSVpIR RkOyc+PHRhYmxlIHdpZHRo XBqaZKZbVmCzlDciYO6fRk 9yZGVyLWNv bIigqSUxXnAkb9xhVSRiXD fwMS4zaWmqK9YwtTP3QNRs e9a1Oh78Z28kK2GefRO+PG FypJR1lPP2 vI2lZfRbPyY2QSbbC707Ah GphEUrBoipj9nej6djiYr1 GtY1QQLihbDnzGjxHUI2i0 EdEc78K22o IHdpZHRoPSIxNSUiIHZhbG rdyi7fnF6gUa3+PGNvbCB3 sQV8nY8jEuMmHrR8ZOhuD0 49InRvcCIv Xfyqp7yif0itpMr8QzMhGW VtvrYebIajIYG2w6KuSl04 H8AqoQjwh1LqLks3ni04mD Pkw3Q8wXS6 R0IpUZSonrvauVWeeKjvWE 6nEFBxjzhyQVVhrD1yUHJp X6m3TtArPdM7MYtuJ9Qglt S8LQIteWIy STQohRIBiY4lbaqsc9vroa kyFtYbQHGyNMp3KTb2BTHy xCsqSgJbSVS7SxB9JCD9sV YrjK8hyTeu gtuuhI7sEmv+JPM9zCBlmU SQPW7xQxmbrDX+PHRkIHN0 tGjgUYuaDKUoeP5pEFTcP2 h2IrSaLtX1 JYagG2XsfwG6QKVisGLeAC GuaQPOvB7zwcckf6qmuypn KxReYIJzQPp6OZl1LHBhsR duOiBsZWZ0 BnL4VDS3nXLgwH5tiEpkmv tomW0aUbv+QmlydGggRGF0 PYo5L5YqNyz2BQFgjUmcBZ 0ncGFkZGlu Wj9zyArqcHbnOC7bLNZfft ojq517LsSpo1xqAOOxpPAz FLrrUNK6R14ed7M1KYOxJW DjGHC1oCT0 dC4zdXdlztpquEMgdYcitb XkjXhaMTftNNhdN125LOKw oDhdOaXaTHj1H0EfRnu7VD LjtGqoWG9h uBFlDGxzDi9waPlbwVlxZW 2sPQTwlcqxm933EqFxi8fd PLXozHEaUOjqKZX7L94wq1 R1PPVsBBYa EBL1rFM0bM5okEbwjzknsB VmdDsgdmVydGljYWwtYWxp S286XGSwrIshCaClmCt1Z7 YvYbq5MERf aMesIL8dnZXjDMamNk0rdW dyxDouYX7lPWAszxhmd993 ItSbq6dtJQDkyFGhOJxpGD N3T75jd6I4 MXKuZMQkVBR3aEH4kL9ubF lnbjogbGVmdDsgdmVydGlj RAhtBZjdQ120XGDbcTnfAw BhdGllbnQg TKsmWAx5P8GcBvlmkKK+PC 03DDZwEM21iBQdqQCjd6vh uXj6RwHyUVCgXPW1qTsoOL bht2TzFNHg M96pfWDzz1P8RIJaaFzvlO EdUtCzmPN5jV2rRNwiasme z2dxxdpbFauxs6jxig53lV 99Q61yDGho ZHRoPSIzMCUiIHZhbGlnbj 9qjS6hNs1+EKBmaPM2bQO3 mS6hLKZvOtC0MEdaB105Kb RvcCIvPjxj a6bex7ieqPz4EuQ9VKRzal RefQxhAOY9u0QnKf83N89h IHdpZHRoPSIyMCUiIHZhbG gquf6rkY7p Ii8+GBYvkUA3tUQ4tU0aRm HvDeP0SXdhQ909HxCysDRv RiapV91fT1QrkZA+PHRyPj e5NYTzyIqa PX8nvUFbGYraIw7gTOY1Ra OmWvPqRYqkP9BqZUUvvecx xrgydMC0BLOuHBJqpQ11Aa 9udDogMTBw yXYYoS8jebmun5fzxoldHw UvIWXfYKv8RKl3FXUtoZdj OnDlQTX3IlY6BRG9hVBtvO 1hbGlnbjog vU7fJ8NhGQFsaffzFb26kE 8nUgOdGeO4BQryCqg+V0lM TElTLCBNSUNIQUVMIFJBWT wvdGQ+PHRk FBU6oVadMYujJVAomI9tTS ZkX3p3HnGxQeL5ATxbX2Ph MPLcbsiePd30kV1aKvZlFt M5CIiaZ6Un njF8BNGeqANaAExqIQP1E3 6sy2U7ZTPqWOJsUNJ8jMA9 cH7prUncjxdocIChuYrvev VydGljYWwt RVoaH530SQLqjNomYlE8Bz UwXtI0VNu6N5SeFxn6JHJc aWrkBN2wpXUzDIvsPr7yzP svyGtnUF6n CWWnmvqgNGJbyW6dQAYceD JonQsxBS4mZEKkqoiqy631 NiByQTH8EXKosDOsE4TosD 9yOiAjMDAw IRPrB6PqwMTwZQjdD745GI rwVlD1HASlyxKrE0UtVWYh eDdcIpU6i8E4Ib76WoLSXF FyczwvdGQ+ RXZvVKE8cQeiPCuaVOVuqS 2cZDAxE8y6FgSrOmI5JPzv R6ZgLXYffqbgDe89eC7uJr EtFjH1ROnd C2QhabL0FCAycXWfYUitTG L5G49up5P3SZViZCLnFPN4 mAM0sE6uzCjvmnwztYTvoG sgdmVydGlj YGtlORjbF688DATgyAorXo 7MHTD3A4QwJyl3FQKtsUlh HW3tpOIdFBtyBd8soVylpU shTN3qUSNr fkjfYOAqfL5zDDGnwFMoyZ phWT0tTTFhcammn552QlYg XWM9MNLieIUeR5GwxX1hUv AjMDAwMDAw W3LgkULkGHypM752VDauEh G0ROLrjhMiZ3WwRXLuwLlq UiD3t5W3No0OYIpoT3LzO4 VyeTwvdGQ+ TP95dd79M9JhCrgiZtd4XZ FzPHU9tBM5hN7uQENwEVnc g3D2bNO2M7TqweWjpu1ri7 xsYXBzZTog G50loAFkj9V9WYWakKV8GA RiiOqjQqKozO56Jss+PGNv sGzwc4PyHzekv7pou0vsqE z6UyOjKYIc dmSgwEfjAQP3o4KhAh55C7 9sIHdpZHRoPSIzMCUiIHZh fYpycn6niI5oMb5+PGNvbC I6jOB2gN6a YnTqWiM0YXqqN510NiIpeE JfQxarx5ndf1rtmLc9AvDa LSPgldWkeAilVUQ3m8OxLn 01K9XexJqe v0VyOxf2vn50dGFjl6I8uJ K6L1YgLXMvruaomOJbzUfa HZ4zOPBqowrnYQUszX7vXD PbA3r9LkCb EdX5ADljW3HexrS2VZMyyK YuGBKlxYGNgT8zumwwg0cj beeeUyQxKEXyKAn2CBa6TF FsaWduOiBs WDQ3RbZ9YIP3vCQgyW3qhA nxcvbxkG6gVut+LLo0z4en dTDsJA9bkTW0CK93HB00iZ Bwt7V4yXV8 G7UwSDLqfzuwjxzbqMJ4BM WwUTNxaW62Qa4cbCsdMu4o MSUuOMP7VUNbaFCgG8HjwT 9yOiAjMDAw FDWdU2NfrAOrZNucP300DE loNpQ4NXJewvOhX2FhJYKi mYhwJjM1i4S1Hp3FAM08MS 31OC25pCJj i7R7rEM3T4CpHCMbkoypko rcoPV7YPZbJWZqbZ72Bo6f cOxcPp3bBANsETS8VLYkbS QzM0LvnP7r MuEpGWPuMLSlY8BiwHOtKW oyF065DMonCvV0IXXoeyEc P6PhFTHmgVekHbE9k0E2Ng 9YLz32KL85 YF62rHYnq1D4sCZ4U2WwGB KlypsflhofqBW0ORJdYKAf xO82Bw6cvXuaGl5kQAWjEK G0PMWrqUNh K7SttQ0pEaTbYQYxVNOiK1 NlzOAwPMiaX939KFhlNuV0 BEEwdkOfC4LrYGZilQmuVs Y3l9C8Eb6B OVsoiru3M4UaZrpydCU+PC 60OBPzIU60yLFrlXCqc8bv mTc0QlAyMWBxWIA2fZytQB jkc6IbMTKa Y29 (more content not included)... [facility] Provider Orderson 02-06-2025 Provider Orders [id number]#[id number] [facility]-04-2025 Consent Forms [id number] [facility] Recordon 02-04-2025 MAGR Intraoperative Record MAGR Intra-Op Record Summary Primary Physician: Derik Marrero MD Finalized Date/Time: 02/04/25 11:18:12 Pt. Name: DYAN HARRELL DANTE Ortiz/Sex: 1960 MALE Med Rec #: [id number] Physician: Derik Marrero MD Financial #: [id number] Pt. Type: D Room/Bed: / Admit/Disch: 02/03/25 09:00:14 - 02/03/25 12:43:00 Institution: Case Times MAGR Entry 1 Patient In Room Time 02/03/25 10:30:00 Out Room Time 02/03/25 11:41:00 Anesthesia Start Time 02/03/25 10:28:00 Stop Time 02/03/25 11:44:00 Surgery Start Time 02/03/25 10:42:00 Stop Time 02/03/25 11:37:00 Last Modified By: Elisa Beasley RN 02/03/25 11:45:54 Case Attendance MAGR Entry 1 Entry 2 Entry 3 Case Attendee Derik Marrero MD, Robert M MD Long, Barbara RN Role Performed Surgeon - Primary Anesthesiologist of Machine Sole Leveler Record Time In 02/03/25 10:30:00 02/03/25 10:30:00 02/03/25 10:30:00 Time Out 02/03/25 11:41:00 02/03/25 11:41:00 02/03/25 11:21:00 Procedure Extracorporeal Shock Extracorporeal Shock Extracorporeal Shock Wave Wave Wave Lithotripsy(Bilateral) Lithotripsy(Bilateral) Lithotripsy(Bilateral) Last Modified By: Elisa Beasley RN, Diane RN Long, Barbara RN 02/03/25 11:44:14 02/03/25 11:44:14 02/03/25 11:44:14 Entry 4 Entry 5 Entry 6 Case Attendee Afshin Goodwin Regina CSFA CST Kokinda, Diane RN Role Performed Scrub Personnel Scrub Personnel Machine Sole Leveler Time In 02/03/25 10:30:00 02/03/25 10:30:00 02/03/25 11:21:00 Time Out 02/03/25 11:41:00 02/03/25 11:41:00 02/03/25 11:41:00 Procedure Extracorporeal Shock Extracorporeal Shock Extracorporeal Shock Wave Wave Wave Lithotripsy(Bilateral) Lithotripsy(Bilateral) Lithotripsy(Bilateral) Last Modified By: Rianna Lucero RN, Diane RN Kokinda, Diane RN 02/03/25 11:44:14 02/03/25 11:44:14 02/03/25 11:44:14 General Comments: ADRIA ALEXANDER REP Surgical Procedures MAGR Pre-Care Text: A.20 Verifies operative procedure, surgical site, and laterality Im.150 Develops individualized plan of care Entry 1 Procedure Extracorporeal Shock Primary Procedure Yes Wave Lithotripsy Primary Surgeon Derik Marrero MD Modifiers Bilateral Surgeon Comment Bilateral ESWL Start 02/03/25 10:42:00 Stop 02/03/25 11:37:00 Anesthesia Type MAC Surgical Service Urology Wound Class Clean Technique Details Closure Technique N/A Entire procedure No was performed via laparoscope or robotic assistance Last Modified By: Elisa Beasley RN 02/03/25 11:44:16 Post-Care Text: O.730 The patient's care is consistent with the individualized perioperative plan of care General Case Data MAGR Pre-Care Text: A.350.1 Classifies surgical wound Entry 1 Case Information OR MAGR OR 05 Case Level Level 3 Wound Class Clean Specialty Urology ASA Class 2 Diagnosis Preop Diagnosis Bilateral Kidney Stones Postop Same As Preop Yes Postop Diagnosis Bilateral Kidney Stones Blunt or No Is the procedure No penetrating injury considered occured prior to Emergent/Urgent? the start of the procedure: Last Modified By: Rianna Lucero RN 02/03/25 10:44:53 Post-Care Text: O.760 Patient receives consistent and comparable care regardless of the setting Time Out MAGR Entry 1 Procedure(s) Extracorporeal Shock Wave Lithotripsy(Bilateral) Time Out Checklist Verifications Team Introductions Yes Confirmed Identity, Yes Completed Procedure, Incision Site, and Consent(s) Presence of Yes Site Verification, Yes Necessary Site Marking, Site Procedural Marking Equipment, Devices, Alternative, and/or and Implants Site Marking Verified Exception in Accordance with Facility Policy Anesthesia Review Antibiotic Received Yes All Anesthesia Yes Within an Concerns Addressed Appropriate Time Interval Prior to Surgical Incision Surgeon Review Anticipated Blood Yes Expected Case No Loss Risk Addressed Duration Addressed Critical and Yes Non-Routine Steps to be Performed Addressed Nurse Review Equipment Yes Fire Risk Yes Checks/Concerns Assessment Addressed Completed and Interventions Performed Diagnostic and Yes Sterilization Yes Radiological Test Concerns Addressed Results Displayed are Appropriate and Labeled Other Concerns n/a Addressed Time Out Derik Marrero MD, Time Out Time 02/03/25 10:41:00 Participants Gwyn Keith MD, Rianna Lucero RN, Afshin Goodwin Truitt, Regina CSFA HELICOPTER OFFICER Last Modified By: Rianna Lucero RN 02/03/25 10:42:38 Patient Positioning MAGR Pre-Care Text: A.280 Identifies baseline musculoskeletal status Im.40 Positions the patient Im.80 Applies safety devices Entry 1 Procedure Extracorporeal Shock Body Position Supine Wave Lithotripsy(Bilateral) Left Arm Position Resting at Side Right Arm Position Resting at Side Left Leg Position Extended Right Leg Position Extended Feet Uncrossed? Yes Press Points Checked Yes Additional Patient (more content not included)... Normal [facility] Anesthesia Noteon 02-03-2025 Anesthesia Note Patient: DYAN HARRELL Age: 64 years Sex: MALE : 1960 Associated Diagnoses: None Author: Gwyn Keith MD Postoperative Information Post Operative Note: Operative Day. Anesthetic utilized: Monitored anesthesia care. Health Status Allergies: Allergic Reactions (All) No known allergies Problem list: All Problems Diabetes / SNOMED CT 274983180 / Confirmed Kidney stones / SNOMED CT 300808540 / Confirmed Physical Examination Vital Signs (last 24 hrs) Last Charted Temp Temporal 36.5 DegC (FEB 03 09:15) Heart Rate Peripheral 71 bpm (FEB 03 11:45) Resp Rate 16 br/min (FEB 03 11:45) SBP 119 mmHg (FEB 03 11:45) DBP 78 mmHg (FEB 03 11:45) Review / Management Condition: Stable. Assessment Anesthetic outcome No anesthetic complications noted. Adequate pain relief. awake, VSS, adequate hydration. No Complaint of nausea and vomiting. Plan Transfer/ Discharge: Patient can be discharged from PACU when criteria met. Condition good. [Electronically Signed on: 02/03/2025 11:52 EDT] Gwyn Keith MD [Verified on: 02/03/2025 11:52 EDT] Gwyn Keith MD [facility] Anesthesia Note Patient: DYAN HARRELL Age: 64 years Sex: MALE : 1960 Associated Diagnoses: None Author: Gwyn Keith MD Preoperative Information Anesthesia history: Patient history: No difficult intubation, No malignant hyperthermia. Family history: No malignant hyperthermia. Review of Systems Constitutional: Negative. Respiratory: Negative, No shortness of breath. Cardiovascular: No chest pain. Neurologic: Alert and oriented X4. Health Status Allergies: Allergic Reactions (All) No known allergies Current medications: Home Medications (8) Active calcium carbonate 1250 mg (500 mg elemental calcium) oral tablet 1,250 mg = 1 tab(s), Oral, Daily Farxiga 10 mg oral tablet 5 mg = 0.5 tab(s), Oral, Daily hydroCHLOROthiazide 50 mg oral tablet 50 mg = 1 tab(s), Oral, Daily Klor-Con M20 oral tablet, extended release 20 mEq = 1 tab(s), Oral, Daily metFORMIN 500 mg oral tablet 500 mg = 1 tab(s), Oral, BID pravastatin 20 mg oral tablet 20 mg = 1 tab(s), Oral, Daily Rybelsus 14 mg oral tablet 14 mg = 1 tab(s), Oral, Daily tamsulosin 0.4 mg oral capsule 0.4 mg = 1 cap(s), Oral, Daily Problem list: All Problems Diabetes / SNOMED CT 299964741 / Confirmed Kidney stones / SNOMED CT 426785697 / Confirmed Histories Family History: No family history items have been selected or recorded. Procedure history: ESWL (extracorporeal shockwave lithotripsy) of ureteric calculus (6947943076). Appendectomy (490517839). Cervical vertebral fusion (90731226). Tonsillectomy (277273448). Cholecystectomy (97242475). Social History Electronic Cigarette/Vaping Assessment Electronic Cigarette Use: Never. Alcohol Assessment Use: Current. 1-2 times per week Tobacco Assessment Never tobacco user Tobacco Use:. Substance Abuse Assessment Substance use: Never. . Social & Psychosocial Habits Alcohol 01/07/2025 Alcohol Use: Current Frequency: 1-2 times per week Substance Use 01/07/2025 Substance use: Never Tobacco 01/07/2025 Smoking tobacco use: Never tobacco user Electronic Cigarette/Vaping 01/07/2025 Electronic Cigarette Use: Never . Physical Examination Vital Signs (last 24 hrs) Last Charted Temp Temporal 36.5 DegC (FEB 03 09:15) Heart Rate Monitored 79 bpm (FEB 03:15) Resp Rate 18 br/min (FEB 03:15) SBP 119 mmHg (FEB 03:16) DBP 75 mmHg (FEB 03:16) Airway: Mallampati classification: II (soft palate, fauces, uvula visible). Temporomandibular joint mobility: Good. Mouth: Adequate opening, Tongue ( [place], Moist ), Teeth ( unremarkable ). Neck: Supple, Non-tender, Full range of motion, ACDF in past, but still good ROM. Respiratory: Lungs are clear to auscultation. Cardiovascular: Regular rhythm. Neurologic: Alert, Oriented. Review / Management Laboratory Results Plan [place] [employer] (ASA) physical status classification: Class II. Anesthetic Preoperative Plan Anesthesia: Monitored anesthesia care. Anesthetic plan, risks, benefits, and alternatives discussed with the patient and/or family. Patient verbalized understanding. Informed consent was given. Consent was signed by the patient. [Electronically Signed on: 02/03/2025 09:46 EDT] Gwyn Keith MD [Verified on: 02/03/2025 09:46 EDT] Gwyn Keith MD [facility] Inpatient Patient Summaryon 02-03-2025 Inpatient [place] [address] Patient Discharge Instructions Name: DYAN HARRELL : 1960 Patient Address: [address] [place] [address] Primary Care Provider: Name: CINDY SANTIAGO JR. After you are discharged if you find you have any questions, please, call [phone] ext [phone] to speak to a nurse. Discharge Diagnosis: 1:Kidney stones Prescription Information: If you have been given a prescription for narcotics, seek immediate medical attention if you have any difficulty breathing or any sudden status changes such as confusion and sleepiness. If you or anyone you know is experiencing suicidal thoughts, mental health, alcohol and/or drug addiction problems; contact the [facility] 29/01 Crisis Hotline -Text 4HOTA ce 840332. If you received any narcotics, sedation, or any other medication that causes drowsiness for the next 24 hours, unless otherwise directed: ? Do not drive a car. ? Do not operate machinery such as power tools, lawn mowers, drills, sewing machines, or stoves ? Avoid alcoholic beverages and drugs for allergies, nerves, or sleep ? Do not make important personal or business decisions or sign any legal documents [facility] would like to thank you for allowing us to assist you with your healthcare needs. The following includes patient education materials and information regarding your injury/illness. DYAN HARRELL has been given the following list of follow-up instructions, prescriptions, and patient education materials: Follow-up Instructions With: Address: When: Derik Marrero MD Medications During the course of your visit, your medication list was updated with the most current information. The details of those changes are reflected below: New Medications Printed Prescriptions traMADol (Ultram 50 mg oral tablet) 1 tab(s) Oral (given by mouth) every 6 hours as needed as needed for pain. Refills: 0. Medications to Continue That Have Not Changed Other Medications calcium carbonate (calcium carbonate 1250 mg (500 mg elemental calcium) oral tablet) 1 tab(s) Oral (given by mouth) every day. dapagliflozin (Farxiga 10 mg oral tablet) 0.5 tab(s) Oral (given by mouth) every day. hydroCHLOROthiazide (hydroCHLOROthiazide 50 mg oral tablet) 1 tab(s) Oral (given by mouth) every day. metFORMIN (metFORMIN 500 mg oral tablet) 1 tab(s) Oral (given by mouth) 2 times per day. potassium chloride (Klor-Con M20 oral tablet, extended release) 1 tab(s) Oral (given by mouth) every day. pravastatin (pravastatin 20 mg oral tablet) 1 tab(s) Oral (given by mouth) every day. semaglutide (Rybelsus 14 mg oral tablet) 14 Milligram Oral (given by mouth) every day. tamsulosin (tamsulosin 0.4 mg oral capsule) 1 cap(s) Oral (given by mouth) every day. It is important to always keep an active list of medications available so that you can share with other providers and manage your medications appropriately. As an additional courtesy, we are also providing you with your final active medications list that you can keep with you. calcium carbonate (calcium carbonate 1250 mg (500 mg elemental calcium) oral tablet) 1 tab(s) Oral (given by mouth) every day. dapagliflozin (Farxiga 10 mg oral tablet) 0.5 tab(s) Oral (given by mouth) every day. hydroCHLOROthiazide (hydroCHLOROthiazide 50 mg oral tablet) 1 tab(s) Oral (given by mouth) every day. metFORMIN (metFORMIN 500 mg oral tablet) 1 tab(s) Oral (given by mouth) 2 times per day. potassium chloride (Klor-Con M20 oral tablet, extended release) 1 tab(s) Oral (given by mouth) every day. pravastatin (pravastatin 20 mg oral tablet) 1 tab(s) Oral (given by mouth) every day. semaglutide (Rybelsus 14 mg oral tablet) 14 Milligram Oral (given by mouth) every day. tamsulosin (tamsulosin 0.4 mg oral capsule) 1 cap(s) Oral (given by mouth) every day. traMADol (Ultram 50 mg oral tablet) 1 tab(s) Oral (given by mouth) every 6 hours as needed as needed for pain. Refills: 0. Take only the medications listed above. Contact your doctor prior to taking any medications not on this list. Diet & Activity Patient Activity Level: Patient Diet: Patient Activity Restrictions: Comment: Patient education materials, if any, will display below Viruses or Bacteria What?s got you sick? Antibiotics only treat bacterial infections. Viral illnesses cannot be treated with antibiotics. When an antibiotic is not prescribed, ask your healthcare professional for tips on how to relieve symptoms and feel better. Usual Cause Illness Viruses Bacteria Antibiotic Needed Cold/Runny Nose NO Bronchitis/Chest Cold (in otherwise healthy children and adults) NO Whooping Cough Yes Flu NO Strep Throat Yes Sore Throat (except strep) NO Fluid in the middle ear (otitis media with effusion) NO Urinary Tract Infection Yes Antibiotics Are (more content not included)... [facility] Postoperative Record MAGR Phase II Record Summary Primary Physician: Derik Marrero MD Finalized Date/Time: 02/03/25 12:43:29 Pt. Name: HARRELLDYAN/Sex: 1960 MALE Med Rec #: [id number] Physician: Derik Marrero MD Financial #: [id number] Pt. Type: D Room/Bed: / Admit/Disch: 02/03/25 09:00:14 - Institution: Phase II Case Times MAGR Pre-Care Text: Patient is free from s/s of injury. Patient remains free from compromised physical state related to surgery or anesthesia. Patient comfort maintained. Patient/family verbalize understanding of discharge instructions. Entry 1 In PACU II 02/03/25 11:43:00 Discharge from PACU 02/03/25 12:43:00 II Last Modified By: Nickie Wright RN 02/03/25 12:43:26 Post-Care Text: The patient remains free from s/s of injury. Patient's vital signs stable, circulation maintained, return to preop mental and physical status, opsite/dressing intact, minimal or absent nausea and vomiting, tolerates po intake. Patient verbalizes adequate pain control. Patient/family express understanding of discharge instructions. Finalized By: Nickie Wright RN Document Signatures Signed By: Nickie Wright RN 02/03/25 12:43 [facility] Preoperative Recordon 0 02-03-2025 [facility] Preoperative Record [facility] Pre-Op Record Summary Primary Physician: Derik Marrero MD Finalized Date/Time: 02/03/25 10:38:29 Pt. Name: DYAN HARRELL DANTE BlockO.B./Sex: 1960 MALE Med Rec #: [id number] Physician: Derik Marrero MD Financial #: [id number] Pt. Type: D Room/Bed: / Admit/Disch: 02/03/25 09:00:14 - Institution: Pre-Op Case Times MAGR Pre-Care Text: Patient will be optimally prepared for surgery. Patient is free from s/s of injury. Provide information to patient/family related to plan of care. Verify patient allergies. Confirm identity and verify consent before the operative or invasive procedure. Entry 1 Patient Arrival Time 02/03/25 09:15:00 Preop Departure 02/03/25 10:28:00 Last Modified By: Rianna Lucero RN 02/03/25 10:38:28 Post-Care Text: Patient is prepared mentally and physically and is ready for surgery. The patient remains free from s/s of injury. Patient/family express understanding of plan of care and participate in decisions affecting his or her perioperrative plan of care. Allergies documented appropriately. Patient identifiers and consent correct. General Comments: Pt arrives to [facility] ambulatory. Denies CP, cough, cold, COVID like sx. Denies pacer/defib, GINGER. Pt is diabetic. Pt verbalizes understanding of post op anesthesia orders including no driving for 24h. Finalized By: Rianna Lucero RN Document Signatures Signed By: Rianna Lucero RN 02/03/25 10:38 [facility] POCT Glucose Levelon 025 Glucose [Mass/Vol] 205 mg/dL High [address] [place] [address] Comment on above: Result Comment: OPR_ ID=IN_LIST,TGC FLAG = False Performed By: #### 4 [id number] #### [facility] (DEFAULT) [address] [place] [address]205 Glucose [Mass/Vol] 208 mg/dL High [address] [place] [address] Comment on above: Result Comment: OPR_ ID=IN_LIST,TGC FLAG = False Performed By: #### 4 [id number] ####[facility] (DEFAULT)[address] [place] [address] 49375 Patient Handouton 02-03-2025 Patient Handout [facility] XR Abdomen Single View (KUB) on 02-03-2025 XR Abdomen Single View (KUB) EXAMINATION: XR Abdomen Single View (KUB) HISTORY: bilateral kidneystone COMPARISON: 08/13/2020 FINDINGS: KIDNEY/URETER - RIGHT: No visible renal or ureteral calcifications. KIDNEY/URETER - LEFT: Punctate left nephroliths PELVIS: No visible ureteral calcifications. Any visible calcifications favor phleboliths. BOWEL: No abnormal dilation or deviation. BONES: No acute abnormality. Mild spondylosis of the spine OTHER: Right upper quadrant surgical clips likely from cholecystectomy. No abnormal gaseous collections. IMPRESSION: Punctate left nephroliths Final Dictated by: Rox Easley MD Dictated DT/TM: 02/04/25 8:42 Signed (Electronic Signature): Rox Easley MD 02/04/25 8:43 am Technologist: [facility] Progress Note - Nurseon 01-07 Progress Note - Nurse Pre-op call for 02-03-2025 surgery made. Pt denies sickness. 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 [Electronically Signed on: 02/02/2025 09:12 EDT] Pita Parada RN [Verified on: 02/02/2025 09:12 EDT] Pita Parada RN Pt informed of change in arrival and surgery time, pt was told to be at hospital at 9am for procedure at 11am. Pt was not pleased, but explained to him that it is d/t equipment unable to be here until 10am. He verbalizes understanding. [Electronically Signed on: 02/02/2025 13:40 EDT] Nickie Wright RN [facility] Coding Summaryon 01-15-2025 Coding Summary HTMLBase 64 GskqepsuAGq3rNd+PGhlYW Q+EE6EJOXlF39vrTYflC7q Z4NGDXnHTewzQDXEBBrWSr VpquIdGS8agAQwMZXc IC8+NH2qNBSqOogbwXFbr0 J7oDR7R78xbk6xVYghbXB6 HZVrDwEbgkkxj3bxfKx6QT cuNmluOyBt ZYVhlJ73ZFX0dX15Fn23kC HyhUNdd2sqcPk6MeJuRCWr UNP7wTqnFSifa3VnYLMcI1 4qzXXtc4W6 VVHquYibxGGoJdNkoEM3xC 6jXWtmxbmqe4xwiifhDdr6 fk88pVLwv1O1gWJ4H2Bvne S8OSRyeWWm IuxdiMHSfU7wgsjgb4fyze ruPfDtMELoUFf7ZFb6LYVo iRssCmUaMP83CIG9QJEqxb SeK3AbDYQh iWkcAvL4e1H8Nj5ZZ2YCOn geB7YQJPJZPLkeyPI+PC90 ji42S1FkGvqzUzl6XIIzYO X0cMS2vP6i VTZqSHwcw3J0mSF3Q1Dbba Ygvl2it7uqJDQyCApnY81y mCDqh2A3ZYEgqYJ8DDBmmK sgFtDisT38 Oyc+YPZrtFivi8TtMmtqe4 rfm8dyfTp9BpqoIDPpknFl iOvxGOJ7g1NlGz2yWXTzlS M6sXW2pK7m NvClPiU9SFhwV693QcFhdJ SvIyahR56gQ8QlmGZ+PHRy Vco3WYYueXrxNE7yH5QyUT RpbmctbGVm dDopFW2bBEOqadeiSMDaxU 8jVPNyV4r0XpUiHfV9XCyr O1MvTKDjfjxcKj57xB7zKi OaDvA9AIns T7MnglX8IYXclRIeDIwaRR N0T66eb9E4LFQrHNMjCHP9 hSS5yU6gyIezijjcmBDqbO sgdmVydGlj PLhgCAvqT287AQWnqVkpPq NvZGluZyBEYXRlOiAgMDcv MTAvMjAyNTwvdGQ+PHRkIH D0rJwaYKFz aLXfZHexSr2qoJtpyAqdZC 9vLRElqaaoPZIciI2sDCSt tINymOdxAL5xIWWmjloot7 79XcBpBDH5 SQMesPLzQ2FfeV1cTyGxND NaYXImJ3MvaXLlGNkzO678 JNnqHoI3SUKbjoEuI8GoHP FsaWduOiB0 t2F4Hu6Vu9XtypxfI3AeuD OaQcKwEackUPc0F8EgFhwa dHI+HJ72HCQkDR88MVq6YL K7uLoyCPin RNTrC5GrvZ9cHcNwHBKmQA RkOyc+PHRhYmxlIHdpZHRo PIreZQKwGjVkmIyoPA6jHx 9yZGVyLWNv vTtnaNCsCvUxz8wlCRXiRQ irHZ2pySxnG4BbkGV2CVKj x2v4Kr31L71eM6QraAB+PG QioHQ4qGW9 nY1zGoIaBbB3INvxB777Vv NxnJMfKceyt2bmh8uzuKo9 NuZ9QVFeaiXzbKbbSYV8e0 UpSn29G88g IHdpZHRoPSIxNSUiIHZhbG rrej9vtU8pMp9+PGNvbCB3 xOQ5pL3gIyKzEwH6RAfyY0 49InRvcCIv Owsyt7sur3pyhIf6GfRzGA KoehHmzNyeMZH9k3WiLb93 R9JqlNmlq1AkOnl8wo48qK Ipb5R2tCY5 G3CtPEVstdyrnOHdqJjyOO 3bUFIlbkhrFGFpoC8qMTHc X8z2UsToFeJ2QClnQ6Juqc A2BFSxxQJk RJRwgJJDeM9kzlgfd8dwqq vxXtHuWHItOWb8EMz0JUJf dJkiNoRnDOA9JjI6UMD5dX UngR9hsAyz jqpixZ9lMnm+PAR4qIOwqI MONU5kHrgboSO+PHRkIHN0 qXlmIZtoFRRcwD6lQTToM8 y1YpDwTdG1 BUcgX2OmipY1RQCqoQXhGI LvvVHQyC3wewybg2bqhjhk QbAiIDIjFHs6YUk0VGCrkD duOiBsZWZ0 FsK5ROY4lKFppF1ieLlcpz gahA6uLet+QmlydGggRGF0 CPt7V0OgJyo9SMVhyEhqPE 0ncGFkZGlu Rg2rmIkobXhhWN9oSCOukh zzo955HeIxj7ijFCZhhCYa JQkwUGU4C90ds6B0BBRsHC NdFIN9eZS0 qR8goSmrtphslQIjkUhgoi ZftBsdYTqkLWncM852XBFq jZhlDkSyKRr1I4KeBdz4NY TnjWhdQE9n uYXdTTllQu6ifEjoaHztGF 6pHBAysivxe504WwMtj7oj DVSzgOUeDQxaLIN3N73yd6 B6ZKOiAYSq NSD5sPH7gL9ysAhbfyxqcY VmdDsgdmVydGljYWwtYWxp H068SXFplGsjWrJqzFs9F5 KhCry1YKLm wMxdLJ5tkJNyCJfmDs6twY berQjeBE4xENMgugvam464 TpDtr5mwIAMjfLDvCGyqFU Z9K86ys9I7 XGImREWbWZX9hWN5jT0vsU lnbjogbGVmdDsgdmVydGlj HBpvBMtvC391EWJulBpaLt BhdGllbnQg CRprHDk0W9RiEazbtMD+PC 98RYDrRX20gMTxuYZkn8gf dCh5ZuNkWYZrOYB7vJlnAC lgz4DhIURu V25tnQCvo9M7LCSmiUhmnA VnQaYqpON5nG2mAFlldxcm x5suhroqOspgc3viph71rO 57R15hPIlx ZHRoPSIzMCUiIHZhbGlnbj 6etA7dPv9+SFFshQO7oIA7 qD7mGZSqFrG0FBmbW186Jv RvcCIvPjxj f2mta0wmhFc2TwZ3JUUqhv TphYvnICQ6x8VbRh56G07m IHdpZHRoPSIyMCUiIHZhbG amfp3amS9j Ii8+ZIYhoGG3fPZ1tN9lLo XzQjM2KNxyI009VsWedZVi ZudpG14wB0JyoJG+PHRyPj f4DBBcdSeo YX5yqJTnEQxcRz2rEJD7Kh TrSoOxXEzcX2ViYDMbyhhn gsoazBQ4QXNgMUXdaL12Mb 9udDogMTBw sMPKiH9xdedko8qgxrznCg CwZYJyINs9MCs1BCRlnDqv JmOmFGU5AkD6TIQ5wDOjkL 1hbGlnbjog cY9mE2ToCBIilxcqUq63cY 5mWqTrEoK6MLxmOds+V0lM TElTLCBNSUNIQUVMIFJBWT wvdGQ+PHRk OMV3oTpkHScrUHEkgQ6yDK YnB7a7DeKuRcJ2MWpzT9Yk PHYsvnatSh85uU9iEvGsWg H1EWugK6Di otW2TYLkdWUkJMjfJUD7U2 5er5G3VVVgBJAuWDZ2bXI0 oW9oeHvjcuffkGKomNtmso VydGljYWwt NUcuW058VBUnhPbnAgF5Qf KlCsK7UWm6J6LdKmk7VAIu yKitNX7zsSQsONdkMe3xyI nloZosTH8m FVUdplwnLEFaeP5pYDJfeY WesAopFK3jQVXjwhiou843 OlPoAJD0CSBffAGwV7ZzpM 9yOiAjMDAw QULnK4WwdDCaDIyxJ101BG jgYeM9FKArnvGnL1QrJWZk aDfoWkK8r7L5Bb53DoRBZC FyczwvdGQ+ WZVcMUC9pPkbQVpxVTSfoS 3cMQPvI9v6WqKbClJ4FVps Z6AiFEEmbhwyZm59yE3vAs EsIjH7VXcd F4OgyeX7UTTjbCHsBRmtJR D3D10wk1D7TXQgITXuKLN2 jVY7aQ9bkNbvckhkpEWksO sgdmVydGlj TYdaLLcqP346DQHiiOmbYh 8WIMQ1O8BrZix4ISWbfKuk IG4zeCJsZPsfZj6mkGdxwI wsWN1aDUSa cfbkMVGwmG4hBYOevTGdhZ zsSY0uVVSakntjv147TvDx JWQ3SNAneXNyP6CqiO0hZl AjMDAwMDAw D0JoeIUtYRavV036WFrkVu K1ZZPvhzPkF0MqNNRodBsi SkG9p0D8Dn5VUGhvzUG+PC 66my38P3Sq JlwlRtb1MWWdSZN9gCO0cK 0rDSMdQBpkz7L4nXN8W6Hb jkKzrk6yc9wrOQEzHRfjF8 9zyPEro4M9 QTGscDD2RKKfhFclLhThfL 93Oyc+LRPkoQbwb2DhFuwc q8dpj5lfvRn2AhEhYQDucn FsaWduPSJ0 d4ViXn48L51hSVcsUDByAQ DsHHNrUIBorUhhwl4mvU3x Ii8+WFLmmZT6bVA7kZ6qZq MpBsE8ZYfk I642ZuHeoFDkWzksj8ufq9 ilhWl6BzHmRFWibnRwuBjb ESB0b1FjBy92H2SilUizb9 FySxi3pl85 pLTuu8Q2sME9H8OaVAUlmd hxvCUxjEolTT3cMXKtjwfy ERDmeQ4mRXQdP5w8ExQqFl B6GFokF7Ze ryL8JLFxcXDeZDBowOJWvL 9vumzbv5fawlecZqBkAOYs WGl3GRb1RXGpkVioFuWmEM C5FcP4ZVN4 iXXahT0sbRpkslqoiZ8vUz c+VHa9x6zuqPQqBI9nrPB2 XN70EA95vGKbi1E2tRS8G6 BhZGRpbmct cmlqwKJ4EVErGEKumR31Jn 7rkWbrCv9qWZXjVBC6DDPa sVTdY4JrdQ9fVwJjVQSeIM TaR1ZehPAt RTqjR477FLfyEfA1AJZhes PlW6EnFRHpjXrbWeT8l9P8 Dl3GBE59VD07SN99jIDpj9 L3tSX1K4Tx JQEwqglwdusiwLS6MGOjQT KgaT85Zl4oePgjGz8mDQRd NWW9KYCfiETwE3PthM9eMb AjMDAwMDAw S8HlpEByKLssD830VYkfXv E7XIWbnlQjT7PyDGIzjYka GoR3m4S3Ib3UGy84CI99AH 33zVDzf1K4 mQH5Q8BeOBGnmeefcvmstH N9AJUtUAPwsS95Sl5hqEsp Ui3xLGAkITX8CRGbtSVnW9 WmrG5zQxMl ZMIxLNGzO0EbfQSoJXfpP3 68KKwaZaC1JXTdjkUhN8Ny QWCtuMvvGgE1k9V6Rg1AVM vnkxw1Q1Iq PjwvdHI+BT34DLQqFO49zX EisBWnf8bihZo6KcKzNFWd GTW9gHygPUiqm5CjOIKsU4 2wdQPlq2E0 IGN (more content not included)... Normal [facility] .Auto Diff 01-07-2025 Auto [place] % 9 % Normal 07-20 [facility] Comment on above: Performed By: #### 1 [id number], [id number], [id number] ####[facility] (DEFAULT)[address] [place] [address] Baso Abs# 0.1 x10 Normal 0.0-0.2 [facility] Comment on above: Performed By: #### 1 [id number], [id number], [id number] ####[facility] (DEFAULT)[address] [place] [address] 81197 Basophils/100 WBC (Bld) 1.0 % Normal 0.2-2.0 [facility] Comment on above: Performed By: #### 1 [id number], [id number], [id number] ####[facility] (DEFAULT)[address] [place] [address] 51072 Eos Abs# 0.3 x10 Normal 0.0-0.4 [facility] Comment on above: Performed By: #### 1 [id number], [id number], [id number] ####[facility] (DEFAULT)[address] [place] [address] 32240 Eosinophils/100 WBC (Bld) 4.6 % High 0.9-4.0 [facility] Comment on above: Performed By: #### 1 [id number], [id number], [id number] ####[facility] (DEFAULT)[address] [place] [address] 21733 Lymph Abs# 2.1 x10 Normal 1.3-2.9 [facility] Comment on above: Performed By: #### 1 [id number], [id number], [id number] ####[facility] (DEFAULT)[address] [place] [address] 65780 Lymphocytes/100 WBC (Bld) 31 % Normal 14-48 [facility] Comment on above: Performed By: #### 1 [id number], [id number], [id number] ####[facility] (DEFAULT)[address] [place] [address] 30959 [place] Abs# 0.6 x10 Normal 0.0-0.8 [facility] Comment on above: Performed By: #### 1 [id number], [id number], [id number] ####[facility] (DEFAULT)[address] [place] [address] 91541 Neut Abs# 3.6 x10 Normal 1.5-9.2 [facility] Comment on above: Performed By: #### 1 [id number], [id number], [id number] ####[facility] (DEFAULT)[address] [place] [address] 88308 Neutrophils/100 WBC (Bld) 54 % Normal 44-88 [facility] Comment on above: Performed By: #### 1 [id number], [id number], [id number] ####[facility] (DEFAULT)[address] [place] [address] 34610 BMP Standardon 01-07-2025 eGFR Non AA >60 Invalid Interpretation Code [facility] Comment on above: Performed By: #### 1 [id number], [id number], [id number] ####[facility] (DEFAULT)[address] [place] [address] 84692 eGFR AA >60 Invalid Interpretation Code [facility] Comment on above: Performed By: #### 1 [id number], [id number], [id number] ####[facility] (DEFAULT)[address] [place] [address] 75578 Anion gap [Moles/Vol] 9.4 mmol/L Normal 5.0-19.0 [facility] Comment on above: Performed By: #### 1 [id number], [id number], [id number] ####[facility] (DEFAULT)[address] [place] [address] 58011 Calcium [Mass/Vol] 10.8 mg/dL High 8.9-10.3 [facility] Comment on above: Performed By: #### 1 [id number], [id number], [id number] ####[facility] (DEFAULT)[address] [place] [address] 53133 Chloride [Moles/Vol] 102 mmol/L Normal 101-111 [facility] Comment on above: Performed By: #### 1 1291256, [id number], [id number] ####[facility] (DEFAULT)[address] [place] [address] 83555 CO2 [Moles/Vol] 27 mmol/L Normal 21-32 [facility] Comment on above: Performed By: #### 1 [id number], [id number], [id number] ####[facility] (DEFAULT)[address] [place] [address] 20312 Creatinine [Mass/Vol] 1.07 mg/dL Normal 0.90-1.30 [facility] Comment on above: Performed By: #### 1 3144765, [id number], [id number] ####[facility] (DEFAULT)[address] [place] [address] 80486 Glucose [Mass/Vol] 173.0 mg/dL High 74.0-118.0 [facility] Comment on above: Performed By: #### 1 [id number], [id number], [id number] ####[facility] (DEFAULT)[address] [place] [address] 81074 Osmolality 275 mOsm/L Invalid Interpretation Code [facility] Comment on above: Performed By: #### 1 [id number], [id number], 0507560 ####[facility] (DEFAULT)[address] [place] [address] 48525 Potassium [Moles/Vol] 3.4 mmol/L Low 3.6-5.1 [facility] Comment on above: Performed By: #### 1 [id number], [id number], [id number] ####[facility] (DEFAULT)[address] [place] [address] 88309 Sodium [Moles/Vol] 135.0 mmol/L Low 136.0-144.0 [facility] Comment on above: Performed By: #### 1 [id number], [id number], 4423054 ####[facility] (DEFAULT)[address] [place] [address] 59914 Urea nitrogen [Mass/Vol] 16 mg/dL Normal 8-26 [facility] Comment on above: Performed By: #### 1 0725974, [id number], 0717675 ####[facility] (DEFAULT)[address] [place] [address] 98506 Urea nitrogen/Creatinine [Mass ratio] 14.9 mg/mg Normal 4.6-16.2 [facility] Comment on above: Performed By: #### 1 8341788, [id number], 1085078 ####[facility] (DEFAULT)[address] [place] [address] 27172 CBC w/ Auto Diffon 5 Erythrocyte distribution width (RBC) [Ratio] 13.4 % Normal 11.5-15.0 [facility] Comment on above: Performed By: #### 1 [id number], [id number], [id number] ####[facility] (DEFAULT)[address] [place] [address] Hematocrit (Bld) [Volume fraction] 41.6 % Normal 34.8-51.9 [facility] Comment on above: Performed By: #### 1 [id number], [id number], 0796052 ####[facility] (DEFAULT)[address] [place] [address] Hemoglobin (Bld) [Mass/Vol] 14.5 g/dL Normal 11.8-17.7 [facility] Comment on above: Performed By: #### 1 [id number], [id number], 9910434 ####[facility] (DEFAULT)[address] [place] [address] Man Diff? Auto Invalid Interpretation Code [facility] Comment on above: Performed By: #### 1 [id number], [id number], [id number] ####[facility] (DEFAULT)[address] [place] [address] 68319 MCH (RBC) [Entitic mass] 29 pg Normal 24-34 [facility] Comment on above: Performed By: #### 1 [id number], [id number], 9046497 ####[facility] (DEFAULT)[address] [place] [address] 63863 MCHC (RBC) [Mass/Vol] 35 g/dL Normal 26-37 [facility] Comment on above: Performed By: #### 1 [id number], [id number], 9058478 ####[facility] (DEFAULT)[address] [place] [address] 12848 MCV (RBC) [Entitic vol] 84 fL Normal 81-100 [facility] Comment on above: Performed By: #### 1 [id number], [id number], 2759649 ####[facility] (DEFAULT)[address] [place] [address] 77373 Platelet 351 x10 Normal 138-427 [facility] Comment on above: Performed By: #### 1 [id number], [id number], [id number] ####[facility] (DEFAULT)[address] [place] [address] Platelet mean volume (Bld) [Entitic vol] 7.7 fL Normal 6.3-10.2 [facility] Comment on above: Performed By: #### 1 [id number], [id number], 2098883 ####[facility] (DEFAULT)[address] [place] [address] 94169 RBC 4.96 x10 Normal 3.70-5.30 [facility] Comment on above: Performed By: #### 1 [id number], [id number], 2898299 ####[facility] (DEFAULT)[address] [place] [address] 29115 WBC 6.7 x10 Normal 3.5-10.5 [facility] Comment on above: Performed By: #### 1 [id number], [id number], 0885315 ####[facility] (DEFAULT)[address] [place] [address] 58505 Consultation/Specialist Note on 12-16-2024 Consultation/Specia list Note [id number]#1.0 [id number] [facility] ED Note-Physicianon 03-21-20 ED Note-Physician [id number]#1.00 CD:127 Normal [facility] Facesheeton 03-21-2023 Facesheet [id number]#1. 00CD:127 Normal [facility] Pathology Noteon 03-21-2023 Pathology Note [id number]#1.0 0CD:127 Normal [facility] Ambulatory Visit Summaryon 0 03-20-2023 Ambulatory Visit Summary DYAN HARRELL :1960 Visit Date:03/20/2023 Ambulatory Visit Instructions Your Care Team Attending Physician - DARÍO SIMON, Dyan Huntley Primary Care Physician - VALONE JR DO, CINDY This Is Your Medications List Contact prescribing [...] SIMON, Serafin Mixon Where: [facility] General Surgery Office/Clini c Noteon 03-20-2023 [...] for acute appendicitis, done by Dr Small; [place] surgeon that was covering for several days; [...] virus vaccine, live, trivalent 04/23/2019 Recorded Normal [facility] Comment on above: Result Comment: Elec tronically Signed By: DARÍO SIMON, Dyan Montez\Date and Time Signed: 03/20/23 16:23 EDT Operative Reporton 3 Operative Report [id number]#1.0 0CD:127 Normal [facility] AMYLASEon 09-14-2022 Amylase [Catalytic activity/Vol] 89 U/L Normal 25-115 [facility] Comment on above: Performed By: #### L IPA, CMP, VIJI #### [facility] [address] [place] [address] Dr. Hailey Marr CBC AUTO DIFFon 09-14-2022 BASO # 0.1 103/ul Normal 0.0-0.1 [facility] Comment on above: Performed By: #### C BC #### [facility] [address] [address] [address] Hailey Marr Basophils/100 WBC (Bld) 0.6 % Normal 0.2-2.0 [facility] Comment on above: Performed By: #### C BC #### [facility] [address] [address] [address] Hailey Marr EO # 0.2 103/ul Normal 0.0-0.7 [facility] Comment on above: Performed By: #### C BC #### [facility] [address] [place] [address] Dr. Hailey Marr Eosinophils/100 WBC (Bld) 1.5 % Normal 0.9-7.0 [facility] Comment on above: Performed By: #### C BC #### [facility] [address] [place] [address] Dr. Hailey Marr Erythrocyte distribution width (RBC) [Ratio] 13.6 % Normal 11.0-15.0 [facility] Comment on above: Performed By: #### C BC #### [facility] [address] [place] [address] Dr. Hailey Marr Hematocrit (Bld) [Volume fraction] 40.9 % Critically low 42.0-54.0 [facility] Comment on above: Performed By: #### C BC #### [facility] [address] [place] [address] Dr. Hailey Marr Hemoglobin (Bld) [Mass/Vol] 14.3 g/dL Normal 14.0-18.0 [facility] Comment on above: Performed By: #### C BC #### [facility] [address] [place] [address] Dr. Hailey Marr IG # 0.04 10e3/ul Critically high 0.00-0.03 [facility] Comment on above: Performed By: #### C BC #### [facility] [address] [place] [address] Dr. Hailey Marr IG % 0.3 % Normal 0.0-0.5 [facility] Comment on above: Performed By: #### C BC #### [facility] [address] [place] [address] Dr. Hailey Marr LYMPH # 1.6 103/ul Normal 1.2-3.8 [facility] Comment on above: Performed By: #### C BC #### [facility] [address] [place] [address] Dr. Hailey Marr Lymphocytes/100 WBC (Bld) 12.6 % Critically low 20.5-60.0 [facility] Comment on above: Performed By: #### C BC #### [facility] [address] [place] [address] Dr. Hailey Marr MANUAL DIFF REQ NO Normal [facility] Comment on above: Performed By: #### C BC #### [facility] [address] [place] [address] Dr. Hailey Marr MCH (RBC) [Entitic mass] 29.1 pg Normal 25.9-34.0 [facility] Comment on above: Performed By: #### C BC #### [facility] [address] [place] [address] Dr. Hailey Marr MCHC (RBC) [Mass/Vol] 35.0 g/dL Normal 29.9-35.2 [facility] Comment on above: Performed By: #### C BC #### [facility] [address] [place] [address] Dr. Hailey Marr MCV (RBC) [Entitic vol] 83.3 fL Normal 80.0-94.0 [facility] Comment on above: Performed By: #### C BC #### [facility] [address] [place] [address] Dr. Hailey Marr MONO # 1.0 103/ul Critically high 0.3-0.8 [facility] Comment on above: Performed By: #### C BC #### [facility] [address] [place] [address] Dr. Hailey Marr Monocytes/100 WBC (Bld) 8.3 % Normal 1.7-12.0 [facility] Comment on above: Performed By: #### C BC #### [facility] [address] [place] [address] Dr. Hailey Marr NEUT # 9.6 103/ul Critically high 1.4-6.5 [facility] Comment on above: Performed By: #### C BC #### [facility] [address] [place] [address] Dr. Hailey Marr Neutrophils/100 WBC (Bld) 76.7 % Critically high 43.0-75.0 [facility] Comment on above: Performed By: #### C BC #### [facility] [address] [place] [address] Dr. Hailey Marr Platelet mean volume (Bld) [Entitic vol] 9.8 fL Normal 9.5-13.5 [facility] Comment on above: Performed By: #### C BC #### [facility] [address] [place] [address] Dr. Hailey Marr PLT 326 103/ul Normal 150-450 [facility] Comment on above: Performed By: #### C BC #### [facility] [address] [place] [address] Dr. Hailey Marr RBC 4.91 106/ul Normal 4.70-6.10 [facility] Comment on above: Performed By: #### C BC #### [facility] [address] [place], [place] [id number] Dr. Hailey Marr WBC 12.5 103/ul Critically high 4.0-11.0 [facility] Comment on above: Performed By: #### C BC #### [facility] [address] [place] [address] ABD/PELVIS WO CONon [...] by: TANJA BECKER Date: 2022-09-14 08:07 Normal [facility] ER URINE PROFILEon 3 Bilirubin Ql (U) Negative Normal NEGATIVE [facility] Comment on above: Performed By: #### U MICRO, ERUR #### [facility] [address] [place] [address] Dr. Hailey Marr Clarity (U) CLEAR Normal CLEAR [facility] Comment on above: Performed By: #### U MICRO, ERUR #### [facility] [address] [place] [address] Dr. Hailey Marr Color (U) YELLOW Normal YELLOW [facility] Comment on above: Performed By: #### U MICRO, ERUR #### [facility] [address] [address] [address] Hailey Marr ERUAHD A micrscopic examination will be performed if indicated. Normal [facility] Comment on above: Performed By: #### U MICRO, ERUR #### [facility] [address] [address] [address] Hailey Marr Glucose Ql (U) Negative Normal NEGATIVE [facility] Comment on above: Performed By: #### U MICRO, ERUR #### [facility] [address] [address] [address] Hailey Marr Hemoglobin Ql (U) LARGE Abnormal NEGATIVE [facility] Comment on above: Performed By: #### U MICRO, ERUR #### [facility] [address] [address] [address] Hailey Marr Ketones Ql (U) 15 mg/dl Abnormal NEGATIVE [facility] Comment on above: Performed By: #### U MICRO, ERUR #### [facility] [address] [place] [address] Dr. Hailey Marr LEUKOCYTES Negative Normal NEGATIVE [facility] Comment on above: Performed By: #### U MICRO, ERUR #### [facility] [address] [address] [address] Hailey Marr Nitrite Ql (U) Negative Normal NEGATIVE [facility] Comment on above: Performed By: #### U MICRO, ERUR #### [facility] Laboratory [address] [place] [address] Dr. Hailey Marr pH (U) 5.5 [pH] Normal 5-9 [facility] Comment on above: Performed By: #### U MICRO, ERUR #### [facility] [address] [place] [address] Dr. Hailey Marr Protein (U) [Mass/Vol] 30 mg/dL Abnormal NEGATIVE/ TRACE [facility] Comment on above: Performed By: #### U MICRO, ERUR #### [facility] [address] [place] [address] Dr. Hailey Marr SPEC GRAVITY >=1.030 Abnormal 1.005-<=1.025 [facility] Comment on above: Performed By: #### U MICRO, ERUR #### [facility] [address] [place] [address] Dr. Hailey Marr UR MICRO IND INDICATED Normal [facility] Comment on above: Performed By: #### U MICRO, ERUR #### [facility] [address] [place] [address] Dr. Hailey Marr Urobilinogen Qn (U) 0.2 {Bryon'U}/dL Normal 0.2 - 1. 0 [facility] Comment on above: Performed By: #### U MICRO, ERUR #### [facility] [address] [place] [address] Dr. Hailey Marr LIPASEon 09-14-2022 Lipase [Catalytic activity/Vol] 662.0 U/L Critically high 73.0-393.0 [facility] Comment on above: Performed By: #### L IPA, CMP, VIJI #### [facility] [address] [place] [address] Dr. Hailey Marr PROF 14(COMP METB)on 023 Albumin [Mass/Vol] 4.0 g/dL Normal 3.4-5.0 [facility] Comment on above: Performed By: #### L IPA, CMP, VIJI #### [facility] [address] [place] [address] Dr. Hailey Marr Albumin/Globulin [Mass ratio] 0.9 {ratio} Normal [facility] Comment on above: Performed By: #### L IPA, CMP, VIJI #### [facility] [address] [address] [address] Hailey Marr ALP [Catalytic activity/Vol] 69 U/L Normal 46-116 [facility] Comment on above: Performed By: #### L IPA, CMP, VIJI #### [facility] [address] [place] [address] Dr. Hailey Marr ALT [Catalytic activity/Vol] 51 U/L Normal 16-63 [facility] Comment on above: Performed By: #### L IPA, CMP, VIJI #### [facility] [address] [place] [address] Dr. Hailey Marr Anion gap [Moles/Vol] 13.4 mmol/L Normal [facility] Comment on above: Performed By: #### L IPA, CMP, VIJI #### [facility] [address] [place] [address] Dr. Hailey Marr AST [Catalytic activity/Vol] 24 U/L Normal 15-37 [facility] Comment on above: Performed By: #### L IPA, CMP, VIJI #### [facility] [address] [place] [address] Dr. Hailey Marr Bilirubin [Mass/Vol] 0.5 mg/dL Normal 0.2-1.0 [facility] Comment on above: Performed By: #### L IPA, CMP, VIJI #### [facility] [address] [place] [address] Dr. Hailey Marr Calcium [Mass/Vol] 10.8 mg/dL Critically high 8.5-10.1 [facility] Comment on above: Performed By: #### L IPA, CMP, VIJI #### [facility] [address] [place] [address] Dr. Hailey Marr Chloride [Moles/Vol] 104 mmol/L Normal 98-107 [facility] Comment on above: Performed By: #### L IPA, CMP, VIJI #### [facility] [address] [place] [address] Dr. Hailey Marr CO2 [Moles/Vol] 26.6 mmol/L Normal 21.0-32.0 [facility] Comment on above: Performed By: #### L IPA, CMP, VIJI #### [facility] [address] [place] [address] Dr. Hailey Marr Creatinine [Mass/Vol] 1.19 mg/dL Normal 0.70-1.30 [facility] Comment on above: Performed By: #### L IPA, CMP, VIJI #### [facility] [address] [place] [address] Dr. Hailey Marr EGFR-AF CANADIAN >60 Normal >=60 [facility] Comment on above: Result Comment: Prev iously reported as: 60 On 09/14/2022 08:02 By [email or web address] Performed By: #### L IPA, CMP, VIJI #### [facility] [address] [place] [address] Dr. Hailey Marr EGFR-NON AF CANADIAN >60 Normal >=60 [facility] Comment on above: Result Comment: Prev iously reported as: 60 On 09/14/2022 08:02 By [email or web address] Performed By: #### L IPA, CMP, VIJI #### [facility] [address] [place] [address] Dr. Hailey Marr Globulin (S) [Mass/Vol] 4.3 g/dL Normal [facility] Comment on above: Performed By: #### L IPA, CMP, VIJI #### [facility] [address] [place] [address] Dr. Hailey Marr Glucose [Mass/Vol] 201 mg/dL Critically high 74-106 [facility] Comment on above: Performed By: #### L IPA, CMP, VIJI #### [facility] [address] [place] [address] Dr. Hailey Marr Potassium [Moles/Vol] 4.0 mmol/L Normal 3.5-5.1 [facility] Comment on above: Performed By: #### L IPA, CMP, VIJI #### [facility] [address] [place] [address] Dr. Hailey Marr Protein [Mass/Vol] 8.3 g/dL Critically high 6.4-8.2 [facility] Comment on above: Performed By: #### L IPA, CMP, VIJI #### [facility] [address] [place] [address] Dr. Hailey Marr Sodium [Moles/Vol] 140 mmol/L Normal 136-145 [facility] Comment on above: Performed By: #### L IPA, CMP, VIJI #### [facility] [address] [place] [address] Dr. Hailey Marr Urea nitrogen [Mass/Vol] 21.0 mg/dL Critically high 7.0-18.0 [facility] Comment on above: Performed By: #### L IPA CMP, VIJI #### [facility] [address] [place] [address] Dr. Hailey Marr Urea nitrogen/Creatinine [Mass ratio] 17.6 mg/mg Normal [facility] Comment on above: Performed By: #### L IPA CMP, VIJI #### [facility] [address] [place] [address] Dr. Hailey Marr URINE MICROSCOPIC ONLYon BACTERIA TRACE Abnormal NONE SEEN [facility] Comment on above: Performed By: #### U MICRO, ERUR #### [facility] [address] [place] [address] Dr. Hailey Marr Bacteria identified Cx Nom (U) NOT INDICATED Normal [facility] Comment on above: Performed By: #### U MICRO, ERUR #### [facility] [address] [place] [address] Dr. Hailey Marr CA OX CRYSTALS FEW Normal [facility] Comment on above: Performed By: #### U MICRO, ERUR #### [facility] [address] [place] [address] Dr. Hailey Marr CAST NONE SEEN Normal NONE SEEN [facility] Comment on above: Performed By: #### U MICRO, ERUR #### [facility] [address] [address] [address] Hailey Marr Crystals LM Nom (Urine sed) SEEN Abnormal NONE SEEN [facility] Comment on above: Performed By: #### U MICRO, ERUR #### [facility] [address] [place] [address] Dr. Hailey Marr Epithelial cells LM Ql (Urine sed) RARE Normal NONE SEEN /RARE [facility] Comment on above: Performed By: #### U MICRO, ERUR #### [facility] [address] [address] [address] Hailey Marr MUCOUS NONE SEEN Normal NONE SEEN [facility] Comment on above: Performed By: #### U MICRO, ERUR #### [facility] [address] [place] [address] Dr. Hailey Marr RBC 5-10 Abnormal 0-2 [facility] Comment on above: Performed By: #### U MICRO, ERUR #### [facility] [address] [place] [address] Dr. Hailey Marr WBC 2-5 Abnormal NONE SEEN [facility] Comment on above: Performed By: #### U MICRO, ERUR #### [facility] [address] [place] [address] Dr. Hailey Marr In office Testingon 09-05-19 23 In office Testing [id number] Normal [facility] XR KUB 1 VIEWon 03-15-2022 XR [...] by: ROX EASLEY Date: 2022-03-15 06:[address] [facility] Glucose Poct Glucometerson 0 12-08-2021 Commemt1 Glu2: Cleaned Meter Normal [facility] Comment on above: Result Comment: PERF ORMED BY: [facility] [place] [address] PATHOLOGIST ROTATING EQUIPMENT SPECIALIST ANTONIO ROSALES M.D. Performed By: #### G JAYY #### Point of Care testing , Glucose [Mass/Vol] 138 mg/dL Normal [facility] Comment on above: Result Comment: [facility] Glucose Reference Range is dependent on time and content of last meal. Glucose of more than 200 mg/dL in a nonstressed, ambulatory subject supports the diagnosis of Diabetes Mellitus. Performed By: #### G JAYY #### Point of Care testing , CBC AUTO DIFFon 12-07-2021 BASO # 0.1 103/ul Normal 0.0-0.1 [facility] Comment on above: Performed By: #### C BC #### [facility] [address] [place] [address] Dr. Hailey Marr Basophils/100 WBC (Bld) 0.7 % Normal 0.2-2.0 [facility] Comment on above: Performed By: #### C BC #### [facility] [address] [address] [address] Hailey Marr EO # 0.3 103/ul Normal 0.0-0.7 [facility] Comment on above: Performed By: #### C BC #### [facility] [address] [address] [address] Hailey Marr Eosinophils/100 WBC (Bld) 3.4 % Normal 0.9-7.0 [facility] Comment on above: Performed By: #### C BC #### [facility] [address] [address] [address] Hailey Marr Erythrocyte distribution width (RBC) [Ratio] 13.5 % Normal 11.0-15.0 [facility] Comment on above: Performed By: #### C BC #### [facility] [address] [place] [address] Dr. Hailey Marr Hematocrit (Bld) [Volume fraction] 39.4 % Critically low 42.0-54.0 [facility] Comment on above: Performed By: #### C BC #### [facility] [address] [place] [address] Dr. Hailey Marr Hemoglobin (Bld) [Mass/Vol] 13.1 g/dL Critically low 14.0-18.0 [facility] Comment on above: Performed By: #### C BC #### [facility] [address] [place] [address] Dr. Hailey Marr IG # 0.03 10e3/ul Normal 0.00-0.03 [facility] Comment on above: Performed By: #### C BC #### [facility] [address] [place] [address] Dr. Hailey Marr IG % 0.4 % Normal 0.0-0.5 [facility] Comment on above: Performed By: #### C BC #### [facility] [address] [place] [address] Dr. Hailey Marr LYMPH # 2.8 103/ul Normal 1.2-3.8 [facility] Comment on above: Performed By: #### C BC #### [facility] [address] [place] [address] Dr. Hailey Marr Lymphocytes/100 WBC (Bld) 37.2 % Normal 20.5-60.0 [facility] Comment on above: Performed By: #### C BC #### [facility] [address] [place] [address] Dr. Hailey Marr MANUAL DIFF REQ NO Normal [facility] Comment on above: Performed By: #### C BC #### [facility] [address] [place] [address] Dr. Hailey Marr MCH (RBC) [Entitic mass] 29.5 pg Normal 25.9-34.0 [facility] Comment on above: Performed By: #### C BC #### [facility] [address] [place] [address] Dr. Hailey Marr MCHC (RBC) [Mass/Vol] 33.2 g/dL Normal 29.9-35.2 [facility] Comment on above: Performed By: #### C BC #### [facility] [address] [address] [address] Hailey Marr MCV (RBC) [Entitic vol] 88.7 fL Normal 80.0-94.0 [facility] Comment on above: Performed By: #### C BC #### [facility] [address] [address] [address] Hailey Marr MONO # 0.6 103/ul Normal 0.3-0.8 [facility] Comment on above: Performed By: #### C BC #### [facility] [address] [address] [address] Hailey Marr Monocytes/100 WBC (Bld) 8.6 % Normal 1.7-12.0 [facility] Comment on above: Performed By: #### C BC #### [facility] [address] [address] [address] Hailey Marr NEUT # 3.7 103/ul Normal 1.4-6.5 [facility] Comment on above: Performed By: #### C BC #### [facility] [address] [address] [address] Hailey Marr Neutrophils/100 WBC (Bld) 49.7 % Normal 43.0-75.0 [facility] Comment on above: Performed By: #### C BC #### [facility] [address] [address] [address] Hailey Marr Platelet mean volume (Bld) [Entitic vol] 9.5 fL Normal 9.5-13.5 [facility] Comment on above: Performed By: #### C BC #### [facility] [address] [address] [address] Hailey Marr PLT 310 103/ul Normal 150-450 [facility] Comment on above: Performed By: #### C BC #### [facility] [address] [address] [address] Hailey Marr RBC 4.44 106/ul Critically low 4.70-6.10 [facility] Comment on above: Performed By: #### C BC #### [facility] [address] [address] [address] Hailey Marr WBC 7.4 103/ul Normal 4.0-11.0 [facility] Comment on above: Performed By: #### C BC #### [facility] [address] [address] [address] Hailey Marr [facility] SARS-CoV-2 (COVID-19) RNA MARC+probe Ql (Unsp spec) Negative Normal Negative [facility] Comment on above: Order Comment: Healt hcare Worker?: N Result Comment: Testing for SARS-CoV-2 by RT-PCR This test was developed and its performance characteristics determined by [employer] and validated at the [facility]. This test has not been FDA cleared [...] is terminated or revoked sooner. PERFORMED BY: [place] [address] PATHOLOGIST ROTATING EQUIPMENT SPECIALIST ANTONIO ROSALES M.D. Performed By: #### C OVID 19 [facility] #### [address] PROF 14(COMP METB)on 022 Albumin [Mass/Vol] 3.8 g/dL Normal 3.4-5.0 [facility] Comment on above: Performed By: #### C MP #### [facility] [address] [address] [address] Hailey Marr Albumin/Globulin [Mass ratio] 1.0 {ratio} Normal [facility] Comment on above: Performed By: #### C MP #### [facility] [address] [place] [address] Dr. Hailey Marr ALP [Catalytic activity/Vol] 60 U/L Normal 46-116 [facility] Comment on above: Performed By: #### C MP #### [facility] [address] [place] [address] Dr. Hailey Marr ALT [Catalytic activity/Vol] 73 U/L Critically high 16-63 [facility] Comment on above: Performed By: #### C MP #### [facility] [address] [place] [address] Dr. Hailey Marr Anion gap [Moles/Vol] 12.5 mmol/L Normal [facility] Comment on above: Performed By: #### C MP #### [facility] [address] [place] [address] Dr. Hailey Marr AST [Catalytic activity/Vol] 30 U/L Normal 15-37 [facility] Comment on above: Performed By: #### C MP #### [facility] [address] [place] [address] Dr. Hailey Marr Bilirubin [Mass/Vol] 0.4 mg/dL Normal 0.2-1.0 [facility] Comment on above: Performed By: #### C MP #### [facility] [address] [place] [address] Dr. Hailey Marr Calcium [Mass/Vol] 10.0 mg/dL Normal 8.5-10.1 [facility] Comment on above: Performed By: #### C MP #### [facility] [address] [place] [address] Dr. Hailey Marr Chloride [Moles/Vol] 104 mmol/L Normal 98-107 [facility] Comment on above: Performed By: #### C MP #### [facility] [address] [place] [address] Dr. Hailey Marr CO2 [Moles/Vol] 27.0 mmol/L Normal 21.0-32.0 [facility] Comment on above: Performed By: #### C MP #### [facility] [address] [address] [address] Hailey Marr Creatinine [Mass/Vol] 0.89 mg/dL Normal 0.70-1.30 [facility] Comment on above: Performed By: #### C MP #### [facility] [address] [address] [address] Hailey Marr EGFR-AF CANADIAN >60 Normal >=60 [facility] Comment on above: Performed By: #### C MP #### [facility] [address] [address] [address] Hailey Marr EGFR-NON AF CANADIAN >60 Normal >=60 [facility] Comment on above: Performed By: #### C MP #### [facility] [address] [place] [address] Dr. Hailey Marr Globulin (S) [Mass/Vol] 3.9 g/dL Normal [facility] Comment on above: Performed By: #### C MP #### [facility] [address] [place] [address] Dr. Hailey Marr Glucose [Mass/Vol] 120 mg/dL Critically high 74-106 [facility] Comment on above: Performed By: #### C MP #### [facility] [address] [place] [address] Dr. Hailey Marr Potassium [Moles/Vol] 4.5 mmol/L Normal 3.5-5.1 [facility] Comment on above: Performed By: #### C MP #### [facility] [address] [place] [address] Dr. Hailey Marr Protein [Mass/Vol] 7.7 g/dL Normal 6.4-8.2 [facility] Comment on above: Performed By: #### C MP #### [facility] [address] [address] [address] Hailey Marr Sodium [Moles/Vol] 139 mmol/L Normal 136-145 [facility] Comment on above: Performed By: #### C MP #### [facility] [address] [address] [address] Hailey Marr Urea nitrogen [Mass/Vol] 10.0 mg/dL Normal 7.0-18.0 [facility] Comment on above: Performed By: #### C MP #### [facility] [address] [address] [address] Hailey Marr Urea nitrogen/Creatinine [Mass ratio] 11.2 mg/mg Normal [facility] Comment on above: Performed By: #### C MP #### [facility] [address] [address] [address] Hailey Marr XR hand RT min 3V*on 022 XR hand RT min 3V* [facility] [place] [address] XRay Report Signed Patient: Dyan Harrell MR#: [id number] : 1960 Acct:[id number] Age/Sex: 61 / M ADM Date: 12/07/21 Loc: [place] Room: Type: [facility] Attending Dr: Lala Hinds MD Ordering [...] PROCESS. Impression dictated by: Slim Pettit Jr., D.O.12/07/2021 10:09 AM Dictation Location: [facility] Transcribed By: SANTA 12/07/21 1009 Dictated By: Slim Pettit Jr, DO 12/07/21 1007 Signed By: 12/07/21 1009 Normal [facility] Vital Signs Date Time Vital Sign Value Performing Clinician Facility 03-20-2022 07:57-0400 Blood Pressure Location Serafin ARAGON [facility] 03-20-2022 07:57-0400 Diastolic blood pressure 70 mm[Hg] Serafin ARAGON [facility] 03-20-2022 07:57-0400 Systolic blood pressure 138 mm[Hg] Serafin ARAGON [facility] 03-15-2022 09:30-0400 Body height 182.88 cm Lala [employer] Other [facility] Other 03-15-2022 09:30-0400 Body mass index (BMI) [Ratio] 29.83 kg/m2 Lala Calvey Other [facility] Other 03-15-2022 09:30-0400 Body weight 99.79 kg Lala Calvey Other [facility] Other 12-07-2021 10:00-0400 Body height 182.88 cm Lala Calvey Other [facility] Other 12-07-2021 10:00-0400 Body mass index (BMI) [Ratio] 30.51 kg/m2 Lala Calvey Other [facility] Other 12-07-2021 10:00-0400 Body weight 102.06 kg Lala Calvey Other [facility] Other Encounters Encounter Date Encounter Type Care Provider Facility Start: 02-03-2025 End: 02-03-2025 ambulatory Derik Marrero Facility:[facility] Start: 01-07-2025 End: 01-07-2025 ambulatory Derik Marrero Facility:[facility] Start: 03-20-2023 End: 03-21-2023 ambulatory Dyan MASSEY Facility:[facility] Start: 03-20-2023 End: 03-20-2023 Patient encounter procedure Dyan MASSEY General Surgery [facility] Start: 03-08-2023 ambulatory Serafin ARAGON Facility:[facility] Start: 09-14-2022 End: 09-14-[address] HILDA Zhong Facility:[facility] Start: 03-20-2022 End: 03-20-2022 Patient encounter procedure Serafin ARAGON [facility] Start: 03-15-2022 End: 03-15-2022 ambulatory Lala Hinds Other [facility] Other Start: 03-15-2022 Office outpatient vi sit 15 minutes Lala Calvey [facility] Start: 03-14-2022 End: 03-15-[address] CINDY SANTIAGO Facility:[facility] Start: 02-08-2022 End: 02-08-2022 ambulatory Lala Hinds Other [facility] Other Start: 02-08-2022 Postop follow up vis it related to original px Lala Calvey [facility] Start: 01-11-2022 End: 01-11-2022 ambulatory Lala Hinds Other [facility] Other Start: 01-11-2022 Postop follow up vis it related to original px Lala Calvey [facility] Start: 12-16-2021 End: 12-16-2021 ambulatory Lala Hinds Other [facility] Other Start: 12-16-2021 Postop follow up vis it related to original px Lala Calvey [facility] Start: 12-14-2021 Encounter for preprocedural laboratory examination LALA HINDS [facility] Start: 12-07-2021 End: 12-08-2021 Encounter for preprocedural laboratory examination LALA HINDS Facility:[facility] Start: 12-07-2021 End: 12-08-2021 ambulatory LALA HINDS [facility] Other Start: 12-07-2021 Encounter for other preprocedural examination Lala Hinds [facility] Start: 12-07-2021 Office outpatient ne w 45 minutes Lala [facility] Start: 12-05-2021 End: 12-05-[address] CINDY SANTIAGO Facility:[facility] Procedures Date Procedure Procedure Detail Performing Clinician Start: 03-07-2023 Appendectomy Dyan TREVINO Start: 09-21-2020 Cystoscopy Serafin ESQU[place]EL [place] Start: 09-16-2020 Cystoscopy Serafin [place] Start: 09-09-2020 Extracorporeal shock wave lithotripsy of calculus of kidney Serafin ARAGON Start: 07-31-2019 Cystoscopic removal of ureteric stent Serafin ARAGON Comment on above: CYSTO LEFT STENT REM OVAL LOCAL Start: 07-17-2019 Extracorporeal shock wave lithotripsy of calculus of kidney Serafin ARAGON Start: 07-13-2019 cysto, LT RG pyelogr am, LT double-J placement Serafin ARAGON Start: 10-08-2017 Cholecystectomy Serafin ARAGON Colonoscopy Serafin ARAGON History of cervical spine fusion Dyan MASSEY neck fusion Serafin ARAGON Tonsillectomy Serafin ARAGON Plan of Treatment Date Care Activity Detail Author Start: 04-11-2023 ambulatory Ambulatory Facility:[facility] Immunizations Immunization Date Immunization Notes Care Provider Mak senior 06-11-2021 SARS-CoV-2 (COVID-19 ) mRNA-1273 vaccine Dyan MASSEY General Surgery [facility] Comment on above: Result Comment: 2022: [id number] 10-15-2020 SARS-CoV-2 (COVID-19 ) mRNA-1273 vaccine Dyan MASSEY General [facility] 09-17-2020 SARS-CoV-2 (COVID-19 ) mRNA-1273 vaccine Dyan MASSEY General Surgery [facility] 04-23-2019 influenza virus vaccine, live, attenuated, for intranasal use Serafin ARAGON [facility] Payers Date Payer Category Payer Unknown [id number] 2020 Unknown 2015 Medicare [id number] 1961 Unknown [id number] 2. [id number] 1960 Unknown [id number] 2.16.84 [id number] 1960 Unknown [id number] 2.16.84 [id number] 1960 Unknown [id number] 2.16.84 [id number] 1960 Unknown [id number] 2.16.84 [id number] 1960 Unknown [id number] 2.16.8 [id number] 1960 Unknown [id number] 2.16.8 [id number] 1960 Unknown [id number] 2.16.8 [id number] 1960 Unknown [id number] 2.16.8 [id number] Social History Date Type Detail Facility Sex Assigned At [facility] Other Start: 03-20-2022 Tobacco smoking status Never s moked tobacco (finding) [facility] Start: 03-20-2023 Tobacco smoking status Ex-smoker (fi nding) [facility] Tobacco smoking status Never [facility] Medical Equipment Procedure Code Equipment Code Equipment Original Text Equipment Identifier Dates EXTRACORPOREAL S HOCK WAVE LITHOTRIPSY Serafin ARAGON MD 09/09/20 Unknown Ure[employer] R {[id number]{ [id number]{10}[id number] FDA Start: 09-09-2020 CYSTOSCOPY URETE ROSCOPY Serafin ARAGON MD P 09/16/20 Unknown Ureter R {[id number]{ 17}[id number]{10}[id number] FDA Start: 09-16-2020 Functional Status Date Assessment Result Facility 03-20-2023 Functional Status N/A [facility] 03-20-2022 Functional Status N/A [facility] Clinical Notes 12-07-2021 to 02-06-2025 Note Date & Type Note Facility 02-06-2025 Note [id number]#1.00[facility] 02-04-2025 Note [id number]#1.00[facility] 02-03-2025 Note [facility] SURGERY Clinical Discharge Summary PERSON INFORMATION Name DYAN HARRELL Age 64 Years 1960 Sex MALE Language [place] [facility] CINDY SANTIAGO JR. Marital Status Single Phone Med Service Ambulatory Surgery Acct# Arrival 02/03/2025 09:00:14 Visit Reason Surgery-Bilat ESWL Acuity LOS 060 01:54 Address: [address] [place] [address] Comment: PROVIDER INFORMATION VITALS INFORMATION Vital Sign Triage Latest Temp Oral Temp Temporal Temp Intravascular Temp Axillary Temp Rectal 02 Sat 98 % 100 % Respiratory Rate Peripheral Pulse Rate Apical Heart Rate Blood Pressure / 81 mmHg / 78 mmHg Comment: MEDICAL INFORMATION Allergy Info: No known allergies Prescriptions Given: calcium carbonate (calcium carbonate 1250 mg (500 mg elemental calcium) oral tablet) 1 tab(s) Oral (given by mouth) every day. dapagliflozin (Farxiga 10 mg oral tablet) 0.5 tab(s) Oral (given by mouth) every day. hydroCHLOROthiazide (hydroCHLOROthiazide 50 mg oral tablet) 1 tab(s) Oral (given by mouth) every day. metFORMIN (metFORMIN 500 mg oral tablet) 1 tab(s) Oral (given by mouth) 2 times per day. potassium chloride (Klor-Con M20 oral tablet, extended release) 1 tab(s) Oral (given by mouth) every day. pravastatin (pravastatin 20 mg oral tablet) 1 tab(s) Oral (given by mouth) every day. semaglutide (Rybelsus 14 mg oral tablet) 14 Milligram Oral (given by mouth) every day. tamsulosin (tamsulosin 0.4 mg oral capsule) 1 cap(s) Oral (given by mouth) every day. traMADol (Ultram 50 mg oral tablet) 1 tab(s) Oral (given by mouth) every 6 hours as needed as needed for pain. Refills: 0. Medication List: New Medications Printed Prescriptions traMADol (Ultram 50 mg oral tablet) 1 tab(s) Oral (given by mouth) every 6 hours as needed as needed for pain. Refills: 0. Medications to Continue That Have Not Changed Other Medications calcium carbonate (calcium carbonate 1250 mg (500 mg elemental calcium) oral tablet) 1 tab(s) Oral (given by mouth) every day. dapagliflozin (Farxiga 10 mg oral tablet) 0.5 tab(s) Oral (given by mouth) every day. hydroCHLOROthiazide (hydroCHLOROthiazide 50 mg oral tablet) 1 tab(s) Oral (given by mouth) every day. metFORMIN (metFORMIN 500 mg oral tablet) 1 tab(s) Oral (given by mouth) 2 times per day. potassium chloride (Klor-Con M20 oral tablet, extended release) 1 tab(s) Oral (given by mouth) every day. pravastatin (pravastatin 20 mg oral tablet) 1 tab(s) Oral (given by mouth) every day. semaglutide (Rybelsus 14 mg oral tablet) 14 Milligram Oral (given by mouth) every day. tamsulosin (tamsulosin 0.4 mg oral capsule) 1 cap(s) Oral (given by mouth) every day. New Medications Printed Prescriptions traMADol (Ultram 50 mg oral tablet) 1 tab(s) Oral (given by mouth) every 6 hours as needed as needed for pain. Refills: 0. Medications to Continue That Have Not Changed Other Medications calcium carbonate (calcium carbonate 1250 mg (500 mg elemental calcium) oral tablet) 1 tab(s) Oral (given by mouth) every day. dapagliflozin (Farxiga 10 mg oral tablet) 0.5 tab(s) Oral (given by mouth) every day. hydroCHLOROthiazide (hydroCHLOROthiazide 50 mg oral tablet) 1 tab(s) Oral (given by mouth) every day. metFORMIN (metFORMIN 500 mg oral tablet) 1 tab(s) Oral (given by mouth) 2 times per day. potassium chloride (Klor-Con M20 oral tablet, extended release) 1 tab(s) Oral (given by mouth) every day. pravastatin (pravastatin 20 mg oral tablet) 1 tab(s) Oral (given by mouth) every day. semaglutide (Rybelsus 14 mg oral tablet) 14 Milligram Oral (given by mouth) every day. tamsulosin (tamsulosin 0.4 mg oral capsule) 1 cap(s) Oral (given by mouth) every day. New Medications Printed Prescriptions traMADol (Ultram 50 mg oral tablet) 1 tab(s) Oral (given by mouth) every 6 hours as needed as needed for pain. Refills: 0. Medications to Continue That Have Not Changed Other Medications calcium carbonate (calcium carbonate 1250 mg (500 mg elemental calcium) oral tablet) 1 tab(s) Oral (given by mouth) every day. dapagliflozin (Farxiga 10 mg oral tablet) 0.5 tab(s) Oral (given by mouth) every day. hydroCHLOROthiazide (hydroCHLOROthiazide 50 mg oral tablet) 1 tab(s) Oral (given by mouth) every day. metFORMIN (metFORMIN 500 mg oral tablet) 1 tab(s) Oral (given by mouth) 2 times per day. potassium chloride (Klor-Con M20 oral tablet, extended release) 1 tab(s) Oral (given by mouth) every day. pravastatin (pravastatin 20 mg oral tablet) 1 tab(s) Oral (given by mouth) every day. semaglutide (Rybelsus 14 mg oral tablet) 14 Milligram Oral (given by mouth) every day. tamsulosin (tamsulosin 0.4 mg oral capsule) 1 cap(s) Oral (given by mouth) every day. Comment: Lab and Radiology Results Laboratory or Other Results This Visit (last charted value for your 02/03/2025 visit) Chemistry 02/03/2025 9:58 AM Glucose, POC: 205 mg/dL -- Normal range between ( 74 and 118 ) DIET & ACTIVITY (more content not included)... [facility] 01-08-[address] Tyson reviews PA T information and testing results. Ok to proceed with procedure. Wants patient to hold Farxiga for 3-4 days prior to procedure. Will call patient to instruct them. [Electronically Signed on: 01/08/2025 07:37 EDT] Lady Looney RN [Verified on: 01/08/2025 07:37 EDT] Lady Looney RN Spoke with patient, instructed as above, verbalized understanding. [Electronically Signed on: 01/08/2025 10:45 EDT] Lady Looney RN [facility] 03-20-2022 Hospital Discharg e instructions Patient Education 03/20/2022 08:07:07 Kidney Stones, [id number] Kidney Stones Kidney stones are rock-like masses [...] Follow these instructions at home: Medicines Take [id number] and prescription medicines only as told by [...] 12/11/2008 Document Revised: 11/11/2019 Document Reviewed: 11/11/2019 [employer] Patient Education 2020 [employer]. Follow Up Care 09/07/2021 09:12:58 With:MARGO SIMON, Serafin Mixon, URL Address: [address] [place], [place] [id number]- When:Within 6 Month(s) [facility] 03-15-2022 Evaluation note Encounter Date Diagnosis [...] Other specified postprocedural states (ICD-10 - Z98.890) [facility] Other 08-03-2022 Evaluation note* Encounter Date Diagnosis [...] Other specified postprocedural states (ICD-10 - Z98.890) [facility] Other 07-06-2022 Evaluation note* Encounter Date Diagnosis [...] Other specified postprocedural states (ICD-10 - Z98.890) [facility] Other 06-10-2022 Evaluation note* Encounter Date Diagnosis [...] Other specified postprocedural states (ICD-10 - Z98.890) [facility] Other 06-01-2022 Evaluation note* Encounter Date Diagnosis [...] S61.401A) Dec, Pre-op exam (ICD-10 - Z01.818) [facility] Other Evaluation + Plan note Future Appointments Appointment Date:09/25/2022 08:45:00 AM Scheduled Provider:Serafin ARAGON MD Location:[facility] Appointment Type:URO Office Visit [facility] Evaluation + Plan note Future Appointments Appointment Date:04/11/2023 08:00:00 AM Scheduled Provider:Serafin ARAGON MD Location:[facility] Appointment Type:URO Office Visit General Surgery Phil Campbell History general Narrative - Reported* Type Description Date Medical History kidney stones Medical History metformin Surgical History gallbladder Surgical History tonsillectomy Surgical History lithotripsy Surgical History cervical fusion Surgical History kidney stents\ [facility] Other Hospital course Narrative No data available for this section [facility] Hospital Discharge instructions No data available for this section General Surgery Phil Campbell Progress note No data available for this section [facility] Summary Purpose Family History No Family [...] Records FoundNo Status Records FoundNo Status Records FoundNo Status Records Found INFORMATION SOURCE (unrecogn ized section and content) DATE CREATED AUTHOR 01/17/2022 [facility] DATE CREATED AUTHOR AUTHOR'S ORGANIZ ATION 09/17/2022 [facility] DATE CREATED AUTHOR AUTHOR'S ORGANIZ ATION 03/21/2023 [facility] DATE CREATED AUTHOR AUTHOR'S ORGANIZ ATION 02/10/2025 [facility] Care Team (unrecognized sect ion and content) Personnel Name: CINDY SANTIAGO JR, DO Address: [address] [place] [address] Personnel Name: CINDY SANTIAGO JR, DO Address: Address: [address] [place] [id number] FOR RECORDS PERTAINING TO PATIENTS WHO ARE [...] BE BASED ON THE PRIMARY CLINICAL RECORDS. [facility] [employer] provides no warranty or guarantee of the accuracy or completeness of information in this document.
[2025-02-13 04:55] LABS: Hematocrit 41.8 % (42.0-54.0); Hemoglobin 14.8 g/dL (14.0-18.0); Immature Granulocytes Abs Auto 0.09 10^3/uL (0.00-0.03); Immature Granulocytes Pct Auto 0.5 % (0.0-0.5); Lymphocytes Absolute Auto 1.4 10^3/uL (1.2-3.8); Mean Corpuscular HGB Conc 35.4 g/dL (29.9-35.2); Mean Corpuscular Hemoglobin 29.8 pg (25.9-34.0); Mean Corpuscular Volume 84.3 fL (80.0-94.0); Platelet Count 350 10^3/uL (150-450); Red Blood Count 4.96 10^6/uL (4.70-6.10); White Blood Count 17.8 10^3/uL (4.0-11.0)
[2025-02-13] MEDS: KETOROLAC TROMETHAMINE 30 MG/ML VIAL IVP (04:57)
[2025-02-13] MEDS: 0.9 % SODIUM CHLORIDE 1,000 ML 1000 ML IV (04:57)
[2025-02-13] MEDS: MORPHINE SULFATE 4 MG/ML VIAL IV (04:57)
[2025-02-13 05:03] LABS: Anion Gap 14.5; Blood Urea Nitrogen 16.0 mg/dL (7.0-18.0); Calcium 10.8 mg/dL (8.5-10.1); Carbon Dioxide 26.9 mmol/L (21.0-32.0); Chloride 100 mmol/L (98-107); Estimated GFR (African America >60 (>=60 mL/min/1.73m^2); Estimated GFR (Non-African Ame 55 (>=60 mL/min/1.73m^2); Glucose 183 mg/dL (74-106); Potassium 4.4 mmol/L (3.5-5.1); Sodium 137 mmol/L (136-145)
--- NOTE | 2025-02-13 05:08 | ED.GENADUL1 ---
HPI HPI - General Adult General Chief complaint: Urogenital-Male Stated complaint: KIDNEY STONES Time Seen by Provider: 02/13/25 04:28 Mode of arrival: walk-in History of Present Illness HPI narrative: Patient is a 64-year-old male presenting to the emergency department for concerns of dysuria and lower pelvic discomfort. Patient states that symptoms have been ongoing for the last 2 days, acutely worsening tonight. Generally, the pain is intermittent and comes in waves. He states he has a significant, longstanding history of kidney stones. He just had lithotripsy of bilateral urolithiasis 9 days ago. He states this feels like similar episodes of UTI/kidney stones. In addition to the dysuria, he has been having subjective fevers/rigors, nausea, and decreased p.o. intake. He has been using Pyridium and has taken 2 doses of Keflex at home for symptoms. He denies any associated chest pain or shortness of breath. No abdominal or flank pain. Related Data Home Medications ?Medication ?Instructions ?Recorded ?Confirmed hydrochlorothiazide 12.5 mg capsule 12.5 mg PO DAILY 03/07/23 02/13/25 semaglutide 7 mg tablet (Rybelsus) 7 mg PO DAILY 03/07/23 02/13/25 tamsulosin 0.4 mg capsule (Flomax) 0.4 mg PO DAILY 03/07/23 02/13/25 Previous Rx's ?Medication ?Instructions ?Recorded hydrocodone 5 mg-acetaminophen 325 1 tab PO Q6H PRN pain 5 days #10 03/07/23 mg tablet tabs Allergies Allergy/AdvReac Type Severity Reaction Status Date / Time No Known Drug Allergies Allergy Verified 02/13/25 04:34 Opioid HPI Opioid Management Most Recent Opioid Data: Last Pain Scale 3 Today, 06:32 Last ED Pain Assessment Today, 05:18 Last MAR Pain Assessment Today, 04:57 Review of Systems ROS Status of ROS 10 or more systems reviewed and unremarkable except as noted in history and below PFSH PFSH Social History Little interest or pleasure in doing things: not at all Feeling down, depressed, or hopeless: not at all Exam Narrative Exam Narrative: CONSTITUTIONAL: Appears uncomfortable and is complaining of pain/nausea. Answers questions and follows commands appropriately. SKIN: Was warm and dry. EYES: Sclerae white. EARS, NOSE, THROAT: Moist oral mucosa RESPIRATORY: Clear to auscultation bilaterally, no wheezes, crackles, or stridor, no use of accessory muscles CARDIOVASCULAR: Normal rate and regular rhythm. There is no S3, S4, murmur, rub. GASTROINTESTINAL: Abdomen was soft, non-tender, and non-distended. There is no guarding or rebound tenderness. No CVA tenderness. MUSCULOSKELETAL: No peripheral edema NEUROLOGIC: Patient is awake and alert. Facies were symmetrical. Constitutional Vital Signs, click to edit/add: Last Vital Signs Temp 98.1 F 02/13/25 05:50 Pulse 101 H 02/13/25 05:50 Resp 16 02/13/25 05:50 BP 115/69 02/13/25 05:50 Pulse Ox 95 02/13/25 05:50 O2 Del Method Room Air 02/13/25 05:50 Course Vital Signs Vital signs: Vital Signs Temperature 98.2 F 02/13/25 04:28 Pulse Rate 120 H 02/13/25 04:28 Respiratory Rate 18 02/13/25 04:28 Blood Pressure 133/82 02/13/25 04:28 Pulse Oximetry 97 02/13/25 04:28 Oxygen Delivery Method Room Air 02/13/25 04:28 Temperature 98.1 F 02/13/25 05:50 Pulse Rate 101 H 02/13/25 05:50 Respiratory Rate 16 02/13/25 05:50 Blood Pressure 115/69 02/13/25 05:50 Pulse Oximetry 95 02/13/25 05:50 Oxygen Delivery Method Room Air 02/13/25 05:50 Medical Decision Making [facility] Narrative Medical decision making narrative: Patient is a 64-year-old male, history significant for recurrent gnosis, presenting to the emergency department with a 2-day history of dysuria and lower pelvic pain. He has also been experiencing nausea, decreased p.o. intake, and subjective fever/rigors. On review of external documentation, patient had a lithotripsy done 9 days ago. He also had a CT abdomen/pelvis from October 2024 that demonstrated bilateral nephrolithiasis. Vital signs on arrival during this visit were significant for tachycardia, likely related to his acute pain. He is otherwise afebrile and hemodynamically stable. At first, the patient was calm and comfortable, however he then experienced a significant bout of lower pelvic pain and nausea. His abdomen is soft, nontender, with negative CVA tenderness. Differential diagnosis includes UTI, ureterolithiasis, cystitis, hydronephrosis. IV was established and laboratory studies were obtained. CT abdomen/pelvis without contrast was ordered. He was given 1 L bolus normal saline, IV Zofran, IV ketorolac, and IV morphine for symptomatic treatment. Laboratory studies were significant for mild leukocytosis of 17.8. No other electrolyte/metabolic derangements. No evidence of acute kidney injury. The patient did take Pyridium, which interfered with the results of the UA. However, it was positive for possible UTI with small amount of bacteria and 20-50 WBCs. My shift is now coming to an end. At the time of signout, CT abdomen/pelvis was pending. Given the patient's UA and dysuria, I did elect to empirically treat him for a UTI with 1 g of IV ceftriaxone. Assuming there is no significant obstructing stone on CT, I do believe he would be stable for discharge with oral antibiotics and outpatient follow-up with urology. Differential Diagnosis Differential Diagnosis: UTI, cystitis, urolithiasis Medical Records Medical records reviewed: Yes I reviewed the patient's medical records Lab Data Lab results reviewed: Yes I reviewed the patient's lab results Labs: Lab Results 02/13/25 02/13/25 Range/Units 04:45 05:00 WBC 17.8 H (4.0-11.0) 10^3/uL RBC 4.96 (4.70-6.10) 10^6/uL Hgb 14.8 (14.0-18.0) g/dL Hct 41.8 L (42.0-54.0) % MCV 84.3 (80.0-94.0) fL MCH 29.8 (25.9-34.0) pg MCHC 35.4 H (29.9-35.2) g/dL RDW 13.1 (11.0-15.0) % Plt Count 350 (150-450) 10^3/uL MPV 9.5 (9.5-13.5) fL Neut % (Auto) 84.1 H (43.0-75.0) % Lymph % (Auto) 7.9 L (20.5-60.0) % [place] % (Auto) 7.0 (1.7-12.0) % Eos % (Auto) 0.2 L (0.9-7.0) % Baso % (Auto) 0.3 (0.2-2.0) % Neut # (Auto) 14.9 H (1.4-6.5) 10^3/uL Lymph # (Auto) 1.4 (1.2-3.8) 10^3/uL [place] # (Auto) 1.2 H (0.3-0.8) 10^3/uL Eos # (Auto) 0.0 (0.0-0.7) 10^3/uL Baso # (Auto) 0.1 (0.0-0.1) 10^3/uL Abs Immat Gran (auto) 0.09 H (0.00-0.03) 10^3/uL Imm/Tot Granulo (auto) 0.5 (0.0-0.5) % Sodium 137 (136-145) mmol/L Potassium 4.4 (3.5-5.1) mmol/L Chloride 100 (98-107) mmol/L Carbon Dioxide 26.9 (21.0-32.0) mmol/L Anion Gap 14.5 BUN 16.0 (7.0-18.0) mg/dL Creatinine 1.30 (0.70-1.30) mg/dL Est GFR ( Amer) >60 (>=60 mL/min/1.73m^2) Est GFR (Non-Af Amer) 55 L (>=60 mL/min/1.73m^2) BUN/Creatinine Ratio 12.3 Glucose 183 H (74-106) mg/dL Calcium 10.8 H (8.5-10.1) mg/dL Urine Color Dk. orange (YELLOW) Urine Clarity Clear (CLEAR) Urine pH Color interference A (5.0-9.0) Ur Specific [place] 1.015 (1.005-1.025) Urine Protein Color interference A (NEG/TRACE) mg/dL Urine Glucose (UA) Color interference A (NEGATIVE) mg/dL Urine Ketones Color interference A (NEGATIVE) mg/dL Urine Occult Blood Color interference A (NEGATIVE) Urine Nitrite Color interference A (NEGATIVE) Urine Bilirubin Color interference A (NEGATIVE) Urine Urobilinogen Color interference A (0.2-1.0) EU/dL Ur Leukocyte Esterase Color interference A (NEGATIVE) Urine RBC 0-2 (0-2) #/HPF Urine WBC 20-50 A (NONE SEEN) #/HPF Ur Squamous Epith Cells Rare (NONE/RARE) #/LPF Urine Crystals None seen (None Seen) #/HPF Urine Bacteria Small A (NONE SEEN) #/HPF Urine Casts Seen A (NONE SEEN) #/LPF Hyaline Casts Rare Urine Mucus None seen (NONE SEEN) Ur Culture Indicated? Yes-[facility] [place] Dis[place] Plan Discharge Patient Disposition: Still a Patient
[2025-02-13 05:11] LABS: Glucose Urine UA COLOR INTERFERENCE mg/dL (NEGATIVE)
[2025-02-13 05:18] LABS: Cast Seen? SEEN #/LPF (NONE SEEN); Crystals Seen? None Seen #/HPF (None Seen); Urine Culture Indicated YES-FRMC
[2025-02-13 05:50] VITALS: BP 115/69; PULSE 101; TEMP 36.7; O2SAT 95
[2025-02-13 07:22] VITALS: BP 104/72; PULSE 91; TEMP 36.8; O2SAT 95
--- NOTE | 2025-02-13 07:33 | ED.GENADUL1 ---
HPI HPI - General Adult General Chief complaint: Urogenital-Male Stated complaint: KIDNEY STONES Time Seen by Provider: 02/13/25 04:28 Mode of arrival: walk-in History of Present Illness HPI narrative: 64-year-old male presents to the emergency department and was initially seen by Dr. Ferguson and signed out to me after discussing the case with him thoroughly. Please see his full history and physical exam. Related Data Home Medications ?Medication ?Instructions ?Recorded ?Confirmed hydrochlorothiazide 12.5 mg capsule 12.5 mg PO DAILY 03/07/23 02/13/25 semaglutide 7 mg tablet (Rybelsus) 7 mg PO DAILY 03/07/23 02/13/25 tamsulosin 0.4 mg capsule (Flomax) 0.4 mg PO DAILY 03/07/23 02/13/25 Previous Rx's ?Medication ?Instructions ?Recorded hydrocodone 5 mg-acetaminophen 325 1 tab PO Q6H PRN pain 5 days #10 03/07/23 mg tablet tabs cephalexin 500 mg capsule 500 mg PO TID 7 days #21 caps 02/13/25 Allergies Allergy/AdvReac Type Severity Reaction Status Date / Time No Known Drug Allergies Allergy Verified 02/13/25 04:34 Opioid HPI Opioid Management Most Recent Opioid Data: Last Pain Scale 0 Today, 07:23 Last ED Pain Assessment Today, 05:18 Last MAR Pain Assessment Today, 04:57 PFSH PFSH Social History Little interest or pleasure in doing things: not at all Feeling down, depressed, or hopeless: not at all Exam Constitutional Vital Signs, click to edit/add: Last Vital Signs Temp 98.3 F 02/13/25 07:22 Pulse 91 H 02/13/25 07:22 Resp 16 02/13/25 07:22 BP 104/72 02/13/25 07:22 Pulse Ox 95 02/13/25 07:22 O2 Del Method Room Air 02/13/25 07:22 Course Vital Signs Vital signs: Vital Signs Temperature 98.2 F 02/13/25 04:28 Pulse Rate 120 H 02/13/25 04:28 Respiratory Rate 18 02/13/25 04:28 Blood Pressure 133/82 02/13/25 04:28 Pulse Oximetry 97 02/13/25 04:28 Oxygen Delivery Method Room Air 02/13/25 04:28 Temperature 98.3 F 02/13/25 07:22 Pulse Rate 91 H 02/13/25 07:22 Respiratory Rate 16 02/13/25 07:22 Blood Pressure 104/72 02/13/25 07:22 Pulse Oximetry 95 02/13/25 07:22 Oxygen Delivery Method Room Air 02/13/25 07:22 Medical Decision Making MDM Narrative Medical decision making narrative: CT scan shows renal stones but no ureteral stones or obstruction. Constipation was noted as well by the radiologist. Urinalysis shows presence of UTI. He is already being given IV Rocephin and is discharged home on Keflex and was recommended MiraLAX. Treatment diagnosis and follow-up were discussed with the patient and his . There is no clinical evidence of pyelonephritis. Differential Diagnosis Differential Diagnosis: UTI, kidney stone, constipation, pyelonephritis Lab Data Lab results reviewed: Yes I reviewed the patient's lab results Labs: Lab Results 02/13/25 02/13/25 Range/Units 04:45 05:00 WBC 17.8 H (4.0-11.0) 10^3/uL RBC 4.96 (4.70-6.10) 10^6/uL Hgb 14.8 (14.0-18.0) g/dL Hct 41.8 L (42.0-54.0) % MCV 84.3 (80.0-94.0) fL MCH 29.8 (25.9-34.0) pg MCHC 35.4 H (29.9-35.2) g/dL RDW 13.1 (11.0-15.0) % Plt Count 350 (150-450) 10^3/uL MPV 9.5 (9.5-13.5) fL Neut % (Auto) 84.1 H (43.0-75.0) % Lymph % (Auto) 7.9 L (20.5-60.0) % [place] % (Auto) 7.0 (1.7-12.0) % Eos % (Auto) 0.2 L (0.9-7.0) % Baso % (Auto) 0.3 (0.2-2.0) % Neut # (Auto) 14.9 H (1.4-6.5) 10^3/uL Lymph # (Auto) 1.4 (1.2-3.8) 10^3/uL [place] # (Auto) 1.2 H (0.3-0.8) 10^3/uL Eos # (Auto) 0.0 (0.0-0.7) 10^3/uL Baso # (Auto) 0.1 (0.0-0.1) 10^3/uL Abs Immat Gran (auto) 0.09 H (0.00-0.03) 10^3/uL Imm/Tot Granulo (auto) 0.5 (0.0-0.5) % Sodium 137 (136-145) mmol/L Potassium 4.4 (3.5-5.1) mmol/L Chloride 100 (98-107) mmol/L Carbon Dioxide 26.9 (21.0-32.0) mmol/L Anion Gap 14.5 BUN 16.0 (7.0-18.0) mg/dL Creatinine 1.30 (0.70-1.30) mg/dL Est GFR ( Amer) >60 (>=60 mL/min/1.73m^2) Est GFR (Non-Af Amer) 55 L (>=60 mL/min/1.73m^2) BUN/Creatinine Ratio 12.3 Glucose 183 H (74-106) mg/dL Calcium 10.8 H (8.5-10.1) mg/dL Urine Color Dk. orange (YELLOW) Urine Clarity Clear (CLEAR) Urine pH Color interference A (5.0-9.0) Ur Specific [place] 1.015 (1.005-1.025) Urine Protein Color interference A (NEG/TRACE) mg/dL Urine Glucose (UA) Color interference A (NEGATIVE) mg/dL Urine Ketones Color interference A (NEGATIVE) mg/dL Urine Occult Blood Color interference A (NEGATIVE) Urine Nitrite Color interference A (NEGATIVE) Urine Bilirubin Color interference A (NEGATIVE) Urine Urobilinogen Color interference A (0.2-1.0) EU/dL Ur Leukocyte Esterase Color interference A (NEGATIVE) Urine RBC 0-2 (0-2) #/HPF Urine WBC 20-50 A (NONE SEEN) #/HPF Ur Squamous Epith Cells Rare (NONE/RARE) #/LPF Urine Crystals None seen (None Seen) #/HPF Urine Bacteria Small A (NONE SEEN) #/HPF Urine Casts Seen A (NONE SEEN) #/LPF Hyaline Casts Rare Urine Mucus None seen (NONE SEEN) Ur Culture Indicated? Yes-[facility] [place] Discharge Plan Discharge Chief Complaint: Urogenital-Male Clinical Impression: Urinary tract infection, Constipation Patient Disposition: Home, Self-Care Time of Disposition Decision: 07:32 Condition: Good Mode of Transportation: Private Vehicle Prescriptions / Home Meds: New cephalexin 500 mg capsule 500 mg PO TID 7 Days Qty: 21 0RF No Action hydrocodone-acetaminophen 5-325 mg tablet 1 tab PO Q6H PRN (Reason: pain) 5 Days Qty: 10 0RF hydrochlorothiazide 12.5 mg capsule 12.5 mg PO DAILY tamsulosin [Flomax] 0.4 mg capsule 0.4 mg PO DAILY Rybelsus 7 mg tablet 7 mg PO DAILY Print Language: Serbian Instructions: Constipation (ED), Urinary Tract Infection in Men (ED) Additional Instructions: [id number] MiraLAX for constipation. Referrals: CINDY SANTIAGO DO [Primary Care Provider, Family Practice] - 1 week
== END 2025-02-13 07:45 | disposition home or self-care (01) ==
PROVIDERS: Student in an Organized Health Care Education/Training Program; Emergency Provider Emergency Medicine; PCP Internal Medicine
DX: N39.0 Urinary tract infection, site not specified (principal); K59.00 Constipation, unspecified
CPT/HCPCS: 36415; 74176; 80048; 81001; 85025; 87086; 87088; 87186; 96365; 96375; 99284; J0696; J1885; J2270; J2405

== ENCOUNTER 2025-02-15 00:56 | Emergency (ER) | payer MEDICARE, OTHER, SELFPAY ==
--- OUTSIDE RECORDS SUMMARY | 2020-10-15 05:00 | XMS_ITS | Continuity of Care Document ---
Author Organization [facility] Address [address] [place] [address] Phone Care Team Providers Care Feather Renovator Name Role Phone Rivas Crews Unavailable Unavailable Procedures Procedure Date Moderna COVID Vaccine Admin Dose 2 Moderna COVID-19 Vaccine Moderna COVID Vaccine Admin Dose 1 Moderna COVID-19 Vaccine Advance Directives Directive Yes / No Effective Date File Name No Information Encounters Encounter Description Practice Location Reason(s) For Visit Diagnoses Date Provider Providers Copied on Encounter [facility], [address], [place], [id number], [place] tel:[phone] COVID [facility] No Information Armin Snell. [address], [place], [id number], [place]. tel:[phone] [facility], [address], [place], [id number], tel:[phone] COVID [facility] No Information Armin REYNAGA Rivas. [address], [place], [id number], [place]. tel:[phone] Family History Family Member Type Diagnosis Age At Onset No Information Immunizations Vaccine Date Status Comments Moderna COVID administered Source: New Im munization Record Moderna COVID administered Source: New Im munization Record Payers Payer name Insurance type Covered democrat ID Authoriza tion(s) [employer] [place] CI [id number] [employer] CI [id number] [employer] CI [id number] Social History Type Description Quantity Date Captured Comments Alcohol Use Details Unknown Caffeine Use Details Unknown Tobacco Use Status No Information Smoking Status No Information Sex Male Sexual Orientation Straight or heterosexual Gender Identity Male Chief Complaint And Reason For Visit No Information Reason For Referral Reason For Referral No Information History Of Present Illness Encounter Date Complaint History Of Prese nt Illness No Information Functional Status Date Functional Assessmen t No Information Instructions Date Instruction Additional Infor mation No Information Assessments Type Assessment Date No Information Patient Care Teams Name Effective Dates (start - stop) Status Members No Information
[2025-02-15 00:59] VITALS: BP 132/87; PULSE 106; TEMP 36.7; O2SAT 98; BMI 25.8
--- NOTE | 2025-02-15 01:04 | PC.NURSE ---
Pain and pressure to pelvic area, reports dribbling urine .
--- OUTSIDE RECORDS SUMMARY | 2025-02-15 01:04 | XMS_ITS | Clinical Summary ---
Author Organization Receept tem Address [facility] [id number] [address] [place] [address] Care Team Providers Care Leather Tanner Name Role Phone Mirlande Calderon DO, Charles [...] Not on file Insurance MEDICARE Care Teams Leather Tanner Relationship Specialty Start Date End Date Marek Nogueira Jr., DO [address] [place] [id number] PCP - General Internal Medicine 09/27/17
--- OUTSIDE RECORDS SUMMARY | 2025-02-15 01:05 | XMS_ITS | CCD ---
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 above: Performed By: #### 1 [id number], [id number], [id number] ####[facility] (DEFAULT)[address] [place] [address] 22135 Creatinine [Mass/Vol] 1.07 mg/dL Normal 0.90-1.30 [facility] Comment on above: Performed By: #### 1 [id number], [id number], [id number] ####[facility] (DEFAULT)[address] [place] [address] 65109 Glucose [Mass/Vol] 173.0 mg/dL High 74.0-118.0 [facility] Comment on above: Performed By: #### 1 [id number], [id number], [id number] ####[facility] (DEFAULT)[address] [place] [address] 84752 Osmolality 275 mOsm/L Invalid Interpretation Code [facility] Comment on above: Performed By: #### 1 [id number], [id number], [id number] ####[facility] (DEFAULT)[address] [place] [address] 58845 Potassium [Moles/Vol] 3.4 mmol/L Low 3.6-5.1 [facility] Comment on above: Performed By: #### 1 [id number], [id number], [id number] ####[facility] (DEFAULT)[address] [place] [address] 03422 Sodium [Moles/Vol] 135.0 mmol/L Low 136.0-144.0 [facility] Comment on above: Performed By: #### 1 [id number], [id number], [id number] ####[facility] (DEFAULT)[address] [place] [address] 23153 Urea nitrogen [Mass/Vol] 16 mg/dL Normal 8-26 [facility] Comment on above: Performed By: #### 1 [id number], [id number], [id number] ####[facility] (DEFAULT)[address] [place] [address] 89185 Urea nitrogen/Creatinine [Mass ratio] 14.9 mg/mg Normal 4.6-16.2 [facility] Comment on above: Performed By: #### 1 [id number], [id number], [id number] ####[facility] (DEFAULT)[address] [place] [address] CBC w/ Auto Diffon 5 Erythrocyte distribution width (RBC) [Ratio] 13.4 % Normal 11.5-15.0 [facility] Comment on above: Performed By: #### 1 [id number], [id number], [id number] ####[facility] (DEFAULT)[address] [place] [address] Hematocrit (Bld) [Volume fraction] 41.6 % Normal 34.8-51.9 [facility] Comment on above: Performed By: #### 1 [id number], [id number], [id number] ####[facility] (DEFAULT)[address] [place] [address] 10655 Hemoglobin (Bld) [Mass/Vol] 14.5 g/dL Normal 11.8-17.7 [facility] Comment on above: Performed By: #### 1 [id number], [id number], [id number] ####[facility] (DEFAULT)[address] [place] [address] 92510 Man Diff? Auto Invalid Interpretation Code [facility] Comment on above: Performed By: #### 1 [id number], [id number], [id number] ####[facility] (DEFAULT)[address] [place] [address] 77857 MCH (RBC) [Entitic mass] 29 pg Normal 24-34 [facility] Comment on above: Performed By: #### 1 [id number], [id number], [id number] ####[facility] (DEFAULT)[address] [place] [address] 61178 MCHC (RBC) [Mass/Vol] 35 g/dL Normal 26-37 [facility] Comment on above: Performed By: #### 1 [id number], [id number], [id number] ####[facility] (DEFAULT)[address] [place] [address] 51018 MCV (RBC) [Entitic vol] 84 fL Normal 81-100 [facility] Comment on above: Performed By: #### 1 [id number], [id number], [id number] ####[facility] (DEFAULT)[address] [place] [address] Platelet 351 x10 Normal 138-427 [facility] Comment on above: Performed By: #### 1 [id number], [id number], [id number] ####[facility] (DEFAULT)[address] [place] [address] Platelet mean volume (Bld) [Entitic vol] 7.7 fL Normal 6.3-10.2 [facility] Comment on above: Performed By: #### 1 [id number], [id number], [id number] ####[facility] (DEFAULT)[address] [place] [address] 52137 RBC 4.96 x10 Normal 3.70-5.30 [facility] Comment on above: Performed By: #### 1 [id number], [id number], [id number] ####[facility] (DEFAULT)[address] [place] [address] WBC 6.7 x10 Normal 3.5-10.5 [facility] Comment on above: Performed By: #### 1 [id number], [id number], [id number] ####[facility] (DEFAULT)[address] [place] [address] Consultation/Specialist Note on 12-16-2024 Consultation/Specia list Note [id number] 0OTGTIFF Normal [facility] ED Note-Physicianon 03-21-20 ED Note-Physician [id number]#1.00 CD:127 Normal [facility] Facesheeton 03-21-2023 Facesheet [id number]. 00CD:127 Normal [facility] Pathology Noteon 03-21-2023 Pathology Note [id number]#1.0 0CD:127 Normal [facility] Ambulatory Visit Summaryon 0 03-20-2023 Ambulatory Visit Summary DYAN HARRELL :1960 Visit Date:03/20/2023 Ambulatory Visit Instructions Your Care Team Attending Physician - BRYSON SIMON, Dyan Huntley Primary Care Physician - MAREK SANTIAGO JR, DO This Is Your Medications [...] SIMON, Serafin Mixon Where: [facility]Clini c Noteon 03-20-2023 General [...] for acute appendicitis, done by Dr Small; [facility] surgeon that was covering for several days; [...] virus vaccine, live, trivalent 04/23/2019 Recorded Normal [facility] Comment on above: Result Comment: Elec tronically Signed By: BRYSON SIMON, Dyan Montez\Date and Time Signed: 03/20/23 16:23 EDT Operative Reporton Operative Report [id number]#1.0 0CD:127 Normal [facility] AMYLASEon 09-14-2022 Amylase [Catalytic activity/Vol] 89 U/L Normal 25-115 [facility] Comment on above: Performed By: #### L IPA, CMP, VIJI #### [facility] [address] [place] [address] Dr. Hailey Marr CBC AUTO DIFFon 09-14-2022 BASO # 0.1 103/ul Normal 0.0-0.1 [facility] Comment on above: Performed By: #### C BC #### [facility] [address] [place] [address] Dr. Hailey Marr Basophils/100 WBC (Bld) 0.6 % Normal 0.2-2.0 [facility] Comment on above: Performed By: #### C BC #### [facility] [address] [place] [address] Dr. Hailey Marr EO # 0.2 103/ul Normal 0.0-0.7 [facility] Comment on above: Performed By: #### C BC #### [facility] [address] [place] [address] Dr. Hailey Marr Eosinophils/100 WBC (Bld) 1.5 % Normal 0.9-7.0 [facility] Comment on above: Performed By: #### C BC #### [facility] [address] [place] [address] Dr. Hailey Marr Erythrocyte distribution width (RBC) [Ratio] 13.6 % Normal 11.0-15.0 [facility] Comment on above: Performed By: #### C BC #### [facility] [address] [place] [address] Dr. Hailey Marr Hematocrit (Bld) [Volume fraction] 40.9 % Critically low 42.0-54.0 [facility] Comment on above: Performed By: #### C BC #### [facility] [address] [place] [address] Dr. Hailey Marr Hemoglobin (Bld) [Mass/Vol] 14.3 g/dL Normal 14.0-18.0 [facility] Comment on above: Performed By: #### C BC #### [facility] [address] [place] [address] Dr. Hailey Marr IG # 0.04 10e3/ul Critically high 0.00-0.03 [facility] Comment on above: Performed By: #### C BC #### [facility] [address] [place] [address] Dr. Hailey Marr IG % 0.3 % Normal 0.0-0.5 [facility] Comment on above: Performed By: #### C BC #### [facility] [address] [place] [address] Dr. Hailey Marr LYMPH # 1.6 103/ul Normal 1.2-3.8 [facility] Comment on above: Performed By: #### C BC #### [facility] [address] [place] [address] Dr. Hailey Marr Lymphocytes/100 WBC (Bld) 12.6 % Critically low 20.5-60.0 [facility] Comment on above: Performed By: #### C BC #### [facility] [address] [place] [address] Dr. Hailey Marr MANUAL DIFF REQ NO Normal [facility] Comment on above: Performed By: #### C BC #### [facility] [address] [place] [address] Dr. Hailey Marr MCH (RBC) [Entitic mass] 29.1 pg Normal 25.9-34.0 [facility] Comment on above: Performed By: #### C BC #### [facility] [address] [place] [address] Dr. Hailey Marr MCHC (RBC) [Mass/Vol] 35.0 g/dL Normal 29.9-35.2 [facility] Comment on above: Performed By: #### C BC #### [facility] [address] [place] [address] Dr. Hailey Marr MCV (RBC) [Entitic vol] 83.3 fL Normal 80.0-94.0 [facility] Comment on above: Performed By: #### C BC #### [facility] [address] [place] [address] Dr. Hailey Marr MONO # 1.0 103/ul Critically high 0.3-0.8 [facility] Comment on above: Performed By: #### C BC #### [facility] [address] [place] [address] Dr. Hailey Marr Monocytes/100 WBC (Bld) 8.3 % Normal 1.7-12.0 [facility] Comment on above: Performed By: #### C BC #### [facility] [address] [place] [address] Dr. Hailey Marr NEUT # 9.6 103/ul Critically high 1.4-6.5 [facility] Comment on above: Performed By: #### C BC #### [facility] [address] [place] [address] Dr. Hailey Marr Neutrophils/100 WBC (Bld) 76.7 % Critically high 43.0-75.0 [facility] Comment on above: Performed By: #### C BC #### [facility] [address] [place] [address] Dr. Hailey Marr Platelet mean volume (Bld) [Entitic vol] 9.8 fL Normal 9.5-13.5 [facility] Comment on above: Performed By: #### C BC #### [facility] [address] [place] [address] Dr. Hailey Marr PLT 326 103/ul Normal 150-450 [facility] Comment on above: Performed By: #### C BC #### [facility] [address] [place] [address] Dr. Hailey Marr RBC 4.91 106/ul Normal 4.70-6.10 [facility] Comment on above: Performed By: #### C BC #### [facility] [address] [place], [place] [address] Dr. Hailey Marr WBC 12.5 103/ul Critically high 4.0-11.0 [facility] Comment on above: Performed By: #### C BC #### [facility] [address] [place], [place] [address] ABD/PELVIS WO CONon [...] TANJA BECKER Date: 2022-09-14 08:07 Normal [facility] URINE PROFILEon 3 Bilirubin Ql (U) Negative Normal NEGATIVE [facility] Comment on above: Performed By: #### U MICRO, ERUR #### [facility] [address] [place] [address] Dr. Hailey Marr Clarity (U) CLEAR Normal CLEAR [facility] Comment on above: Performed By: #### U MICRO, ERUR #### [facility] [address] [place] [address] Dr. Hailey Marr Color (U) YELLOW Normal YELLOW [facility] Comment on above: Performed By: #### U MICRO, ERUR #### [facility] [address] [place] [address] Dr. Hailey BABIN A micrscopic examination will be performed if indicated. Normal [facility] Comment on above: Performed By: #### U MICRO, ERUR #### [facility] [address] [place] [address] Dr. Hailey Marr Glucose Ql (U) Negative Normal NEGATIVE [facility] Comment on above: Performed By: #### U MICRO, ERUR #### [facility] [address] [place] [address] [address] Hailey Marr Hemoglobin Ql (U) LARGE Abnormal NEGATIVE [facility] Comment on above: Performed By: #### U MICRO, ERUR #### [facility] [address] [place] [address] [address] Hailey Marr Ketones Ql (U) 15 mg/dl Abnormal NEGATIVE [facility] Comment on above: Performed By: #### U MICRO, ERUR #### [facility] [address] [address] [address] Hailey Marr LEUKOCYTES Negative Normal NEGATIVE [facility] Comment on above: Performed By: #### U MICRO, ERUR #### [facility] [address] [place] [address] Dr. Hailey Marr Nitrite Ql (U) Negative Normal NEGATIVE [facility] Comment on above: Performed By: #### U MICRO, ERUR #### [facility] [address] [place] [address] Dr. Hailey Marr pH (U) 5.5 [pH] Normal 5-9 [facility] Comment on above: Performed By: #### U MICRO, ERUR #### [facility] [address] [place] [address] Dr. Hailey Marr Protein (U) [Mass/Vol] 30 mg/dL Abnormal NEGATIVE/ TRACE [facility] Comment on above: Performed By: #### U MICRO, ERUR #### [facility] [address] [place] [address] Dr. Hailey Marr SPEC GRAVITY >=1.030 Abnormal 1.005-<=1.025 [facility] Comment on above: Performed By: #### U MICRO, ERUR #### [facility] [address] [place] [address] Dr. Hailey Marr UR MICRO IND INDICATED Normal [facility] Comment on above: Performed By: #### U MICRO, ERUR #### [facility] [address] [place] [address] Dr. Hailey Marr Urobilinogen Qn (U) 0.2 {Bryon'U}/dL Normal 0.2 - 1. 0 [facility] Comment on above: Performed By: #### U MICRO, ERUR #### [facility] [address] [place] [address] Dr. Hailey Marr LIPASEon 09-14-2022 Lipase [Catalytic activity/Vol] 662.0 U/L Critically high 73.0-393.0 [facility] Comment on above: Performed By: #### L IPA, CMP, VIJI #### [facility] [address] [place] [address] Dr. Hailey Marr PROF 14(COMP METB)on 023 Albumin [Mass/Vol] 4.0 g/dL Normal 3.4-5.[address] [facility] Comment on above: Performed By: #### L IPA, CMP, VIJI #### [facility] [address] [place] [address] Dr. Hailey Marr Albumin/Globulin [Mass ratio] 0.9 {ratio} Normal [facility] Comment on above: Performed By: #### L IPA, CMP, VIJI #### [facility] [address] [place] [address] Dr. Hailey Marr ALP [Catalytic activity/Vol] 69 U/L Normal 46-116 [facility] Comment on above: Performed By: #### L IPA, CMP, VIJI #### [facility] [address] [place] [address] Dr. Hailey Marr ALT [Catalytic activity/Vol] 51 U/L Normal 16-63 [facility] Comment on above: Performed By: #### L IPA, CMP, VIJI #### [facility] [address] [place] [address] Dr. Hailey Marr Anion gap [Moles/Vol] 13.4 mmol/L Normal [facility] Comment on above: Performed By: #### L IPA, CMP, VIJI #### [facility] [address] [place] [address] Dr. Hailey Marr AST [Catalytic activity/Vol] 24 U/L Normal 15-37 [facility] Comment on above: Performed By: #### L IPA, CMP, VIJI #### [facility] [address] [place] [address] Dr. Hailey Mrar Bilirubin [Mass/Vol] 0.5 mg/dL Normal 0.2-1.0 [facility] Comment on above: Performed By: #### L IPA, CMP, VIJI #### [facility] [address] [place] [address] Dr. Hailey Marr Calcium [Mass/Vol] 10.8 mg/dL Critically high 8.5-10.[address] [facility] Comment on above: Performed By: #### L IPA, CMP, VIJI #### [facility] [address] [place] [address] Dr. Hailey Marr Chloride [Moles/Vol] 104 mmol/L Normal 98-107 [facility] Comment on above: Performed By: #### L IPA, CMP, VIJI #### [facility] [address] [place] [address] Dr. Hailey Marr CO2 [Moles/Vol] 26.6 mmol/L Normal 21.0-32.0 [facility] Comment on above: Performed By: #### L IPA, CMP, VIJI #### [facility] [address] [place] [address] Dr. Hailey Marr Creatinine [Mass/Vol] 1.19 mg/dL Normal 0.70-1.30 [facility] Comment on above: Performed By: #### L IPA, CMP, VIJI #### [facility] [address] [place] [address] Dr. Hailey Marr EGFR-AF MALIAN >60 Normal >=60 [facility] Comment on above: Result Comment: Prev iously reported as: 60 On 09/14/2022 08:02 By [email or web address] Performed By: #### L IPA, CMP, VIJI #### [facility] [address] [place] [address] Dr. Hailey Marr EGFR-NON AF MALIAN >60 Normal >=60 [facility] Comment on above: Result Comment: Prev iously reported as: 60 On 09/14/2022 08:02 By [email or web address] Performed By: #### L IPA, CMP, VIJI #### [facility] [address] [place] [address] Dr. Hailey Marr Globulin (S) [Mass/Vol] 4.3 g/dL Normal [facility] Comment on above: Performed By: #### L IPA, CMP, VIJI #### [facility] [address] [place] [address] Dr. Hailey Marr Glucose [Mass/Vol] 201 mg/dL Critically high 74-[address] [facility] Comment on above: Performed By: #### L IPA, CMP, VIJI #### [facility] [address] [place] [address] Dr. Hailey Marr Potassium [Moles/Vol] 4.0 mmol/L Normal 3.5-5.1 [facility] Comment on above: Performed By: #### L IPA, CMP, VIJI #### [facility] [address] [place] [address] Dr. Hailey Marr Protein [Mass/Vol] 8.3 g/dL Critically high 6.4-8.[address] [facility] Comment on above: Performed By: #### L IPA, CMP, VIJI #### [facility] [address] [place] [address] Dr. Hailey Marr Sodium [Moles/Vol] 140 mmol/L Normal 136-[address] [facility] Comment on above: Performed By: #### L IPA, CMP, VIJI #### [facility] [address] [place] [address] Dr. Hailey Marr Urea nitrogen [Mass/Vol] 21.0 mg/dL Critically high 7.0-18.0 [facility] Comment on above: Performed By: #### L IPA, CMP, VIJI #### [facility] [address] [place] [address] Dr. Hailey Marr Urea nitrogen/Creatinine [Mass ratio] 17.6 mg/mg [facility] Comment on above: Performed By: #### L IPA, CMP, VIJI #### [facility] [address] [place] [address] Dr. Hailey Marr URINE MICROSCOPIC ONLYon BACTERIA TRACE Abnormal NONE SEEN [facility] Comment on above: Performed By: #### U MICRO, ERUR #### [facility] [address] [place] [address] [address] Hailey Marr Bacteria identified Cx Nom (U) NOT INDICATED Normal [facility] Comment on above: Performed By: #### U MICRO, ERUR #### [facility] [address] [place] [address] [address] Hailey Marr CA OX CRYSTALS FEW Normal [facility] Comment on above: Performed By: #### U MICRO, ERUR #### [facility] [address] [place] [address] Dr. Hailey Marr CAST NONE SEEN Normal NONE SEEN [facility] Comment on above: Performed By: #### U MICRO, ERUR #### [facility] [address] [place] [address] Dr. Hailey Marr Crystals LM Nom (Urine sed) SEEN Abnormal NONE SEEN [facility] Comment on above: Performed By: #### U MICRO, ERUR #### [facility] [address] [place] [address] Dr. Hailey Marr Epithelial cells LM Ql (Urine sed) RARE Normal NONE SEEN /RARE [facility] Comment on above: Performed By: #### U MICRO, ERUR #### [facility] [address] [place] [address] Dr. Hailey Marr MUCOUS NONE SEEN Normal NONE SEEN [facility] Comment on above: Performed By: #### U MICRO, ERUR #### [facility] [address] [place] [address] Dr. Hailey Marr RBC 5-10 Abnormal 0-2 [facility] Comment on above: Performed By: #### U MICRO, ERUR #### [facility] [address] [place] [address] Dr. Hailey Marr WBC 2-5 Abnormal NONE SEEN [facility] Comment on above: Performed By: #### U MICRO, ERUR #### [facility] [address] [place] [address] Dr. Hailey Marr In office Testingon 09-05-19 23 In office Testing [id number] 0CD:127 Normal [facility] XR KUB 1 VIEWon 03-15-2022 XR [...] by: ROX EASLEY Date: 2022-03-15 06:37 Normal [facility] Glucose Poct Glucometerson 0 12-08-2021 Commemt1 Glu2: Cleaned Meter Normal [facility] Comment on above: Result Comment: PERF ORMED BY: [facility] [address] [place] [address] PATHOLOGIST YARN MERCER[employer]ER OPERATOR HELPER ANTONIO ROSALES M.D. Performed By: #### G LULS #### Point of Care testing , Glucose [Mass/Vol] 138 mg/dL Normal [facility] Comment on above: Result Comment: [facility] Glucose Reference Range is dependent on time and content of last meal. Glucose of more than 200 mg/dL in a nonstressed, ambulatory subject supports the diagnosis of Diabetes Mellitus. Performed By: #### G LULS #### Point of Care testing , CBC AUTO DIFFon 12-07-2021 BASO # 0.1 103/ul Normal 0.0-0.1 [facility] Comment on above: Performed By: #### C BC #### [facility] [address] [place] [address] Dr. Hailey Marr Basophils/100 WBC (Bld) 0.7 % Normal 0.2-2.0 [facility] Comment on above: Performed By: #### C BC #### [facility] [address] [place] [address] Dr. Hailey Marr EO # 0.3 103/ul Normal 0.0-0.7 [facility] Comment on above: Performed By: #### C BC #### [facility] [address] [place] [address] Dr. Hailey Marr Eosinophils/100 WBC (Bld) 3.4 % Normal 0.9-7.0 [facility] Comment on above: Performed By: #### C BC #### [facility] [address] [place] [address] Dr. Hailey Marr Erythrocyte distribution width (RBC) [Ratio] 13.5 % Normal 11.0-15.0 [facility] Comment on above: Performed By: #### C BC #### [facility] [address] [place] [address] Dr. Hailey Marr Hematocrit (Bld) [Volume fraction] 39.4 % Critically low 42.0-54.0 [facility] Comment on above: Performed By: #### C BC #### [facility] [address] [place] [address] Dr. Hailey Marr Hemoglobin (Bld) [Mass/Vol] 13.1 g/dL Critically low 14.0-18.0 [facility] Comment on above: Performed By: #### C BC #### [facility] [address] [place] [address] Dr. Hailey Marr IG # 0.03 10e3/ul Normal 0.00-0.03 [facility] Comment on above: Performed By: #### C BC #### [facility] [address] [place] [address] Dr. Hailey Marr IG % 0.4 % Normal 0.0-0.5 [facility] Comment on above: Performed By: #### C BC #### [facility] [address] [place] [address] Dr. Hailey Marr LYMPH # 2.8 103/ul Normal 1.2-3.8 [facility] Comment on above: Performed By: #### C BC #### [facility] [address] [place] [address] Dr. Hailey Marr Lymphocytes/100 WBC (Bld) 37.2 % Normal 20.5-60.0 [facility] Comment on above: Performed By: #### C BC #### [facility] [address] [place] [address] Dr. Hailey Marr MANUAL DIFF REQ NO Normal [facility] Comment on above: Performed By: #### C BC #### [facility] [address] [place] [address] Dr. Hailey Marr MCH (RBC) [Entitic mass] 29.5 pg Normal 25.9-34.0 [facility] Comment on above: Performed By: #### C BC #### [facility] [address] [place] [address] Dr. Hailey Marr MCHC (RBC) [Mass/Vol] 33.2 g/dL Normal 29.9-35.2 [facility] Comment on above: Performed By: #### C BC #### [facility] [address] [place] [address] Dr. Hailey Marr MCV (RBC) [Entitic vol] 88.7 fL Normal 80.0-94.0 [facility] Comment on above: Performed By: #### C BC #### [facility] [address] [place] [address] Dr. Hailey Marr MONO # 0.6 103/ul Normal 0.3-0.8 [facility] Comment on above: Performed By: #### C BC #### [facility] [address] [place] [address] Dr. Hailey Marr Monocytes/100 WBC (Bld) 8.6 % Normal 1.7-12.0 [facility] Comment on above: Performed By: #### C BC #### [facility] [address] [place] [address] Dr. Hailey Marr NEUT # 3.7 103/ul Normal 1.4-6.5 [facility] Comment on above: Performed By: #### C BC #### [facility] [address] [place] [address] Dr. Hailey Marr Neutrophils/100 WBC (Bld) 49.7 % Normal 43.0-75.0 [facility] Comment on above: Performed By: #### C BC #### [facility] [address] [address] [address] Hailey Marr Platelet mean volume (Bld) [Entitic vol] 9.5 fL Normal 9.5-13.5 [facility] Comment on above: Performed By: #### C BC #### [facility] [address] [address] [address] Hailey Marr PLT 310 103/ul Normal 150-450 [facility] Comment on above: Performed By: #### C BC #### [facility] [address] [address] [address] Hailey Marr RBC 4.44 106/ul Critically low 4.70-6.10 [facility] Comment on above: Performed By: #### C BC #### [facility] [address] [address] [address] Hailey Marr WBC 7.4 103/ul Normal 4.0-11.0 [facility] Comment on above: Performed By: #### C BC #### [facility] [address] [address] [address] Hailey Marr COVID-19 [facility] 12-07-2021 SARS-CoV-2 (COVID-19) RNA MRAC+probe Ql (Unsp spec) Negative Normal Negative [facility] Comment on above: Order Comment: Healt hcare Worker?: N Result Comment: Testing for SARS-CoV-2 by RT-PCR This test was developed and its performance characteristics determined by [employer] and validated at the [facility]. This test has not been FDA [...] is terminated or revoked sooner. PERFORMED BY: [place] [address] PATHOLOGIST YARN MERCERIZER OPERATOR HELPER ANTONIO ROSALES M.D. Performed By: #### C OVID 19 [facility] #### [address] PROF 14(COMP METB)on 022 Albumin [Mass/Vol] 3.8 g/dL Normal 3.4-5.[address] [facility] Comment on above: Performed By: #### C MP #### [facility] [address] [place] [address] Dr. Hailey Marr Albumin/Globulin [Mass ratio] 1.0 {ratio} Normal [facility] Comment on above: Performed By: #### C MP #### [facility] [address] [place] [address] Dr. Hailey Marr ALP [Catalytic activity/Vol] 60 U/L Normal 46-116 [facility] Comment on above: Performed By: #### C MP #### [facility] [address] [place] [address] Dr. Hailey Marr ALT [Catalytic activity/Vol] 73 U/L Critically high 16-63 [facility] Comment on above: Performed By: #### C MP #### [facility] [address] [address] [address] Hailey Marr Anion gap [Moles/Vol] 12.5 mmol/L Normal [facility] Comment on above: Performed By: #### C MP #### [facility] [address] [place] [address] Dr. Hailey Marr AST [Catalytic activity/Vol] 30 U/L Normal 15-37 [facility] Comment on above: Performed By: #### C MP #### [facility] [address] [place] [address] Dr. Hailey Marr Bilirubin [Mass/Vol] 0.4 mg/dL Normal 0.2-1.0 [facility] Comment on above: Performed By: #### C MP #### [facility] [address] [place] [address] Dr. Hailey Marr Calcium [Mass/Vol] 10.0 mg/dL Normal 8.5-10.[address] [facility] Comment on above: Performed By: #### C MP #### [facility] [address] [place] [address] Dr. Hailey Marr Chloride [Moles/Vol] 104 mmol/L Normal 98-107 [facility] Comment on above: Performed By: #### C MP #### [facility] [address] [place] [address] Dr. Hailey Marr CO2 [Moles/Vol] 27.0 mmol/L Normal 21.0-32.0 [facility] Comment on above: Performed By: #### C MP #### [facility] [address] [place] [address] Dr. Hailey Marr Creatinine [Mass/Vol] 0.89 mg/dL Normal 0.70-1.30 [facility] Comment on above: Performed By: #### C MP #### [facility] [address] [place] [address] Dr. Hailey Marr EGFR-AF MALIAN >60 Normal >=60 [facility] Comment on above: Performed By: #### C MP #### [facility] [address] [place] [address] Dr. Hailey Marr EGFR-NON AF MALIAN >60 Normal >=60 [facility] Comment on above: Performed By: #### C MP #### [facility] [address] [place] [address] Dr. Hailey Marr Globulin (S) [Mass/Vol] 3.9 g/dL Normal [facility] Comment on above: Performed By: #### C MP #### [facility] [address] [place] [address] Dr. Hailey Marr Glucose [Mass/Vol] 120 mg/dL Critically high 74-[address] [facility] Comment on above: Performed By: #### C MP #### [facility] [address] [address] [address] Hailey Marr Potassium [Moles/Vol] 4.5 mmol/L Normal 3.5-5.1 [facility] Comment on above: Performed By: #### C MP #### [facility] [address] [address] [address] Hailey Marr Protein [Mass/Vol] 7.7 g/dL Normal 6.4-8.[address] [facility] Comment on above: Performed By: #### C MP #### [facility] [address] [address] [address] Hailey Marr Sodium [Moles/Vol] 139 mmol/L Normal 136-[address] [facility] Comment on above: Performed By: #### C MP #### [facility] [address] [address] [address] Hailey Marr Urea nitrogen [Mass/Vol] 10.0 mg/dL Normal 7.0-18.0 [facility] Comment on above: Performed By: #### C MP #### [facility] [address] [address] [address] Hailey Marr Urea nitrogen/Creatinine [Mass ratio] 11.2 mg/mg Normal [facility] Comment on above: Performed By: #### C MP #### [facility] [address] [address] [address] Hailey Marr XR hand RT min 3V*on 022 XR hand RT min 3V* [facility] [place] [address] XRay Report Signed Patient: Dyan Harrell MR#: [id number] : 1960 Acct:[id number] Age/Sex: 61 / M ADM Date: 12/07/21 Loc: [facility] Room: Type: [facility] Attending Dr: Lala Hinds MD Ordering [...] PROCESS. Impression dictated by: Slim Pettit Jr., DJohn12/07/2021 10:09 AM Dictation Location: [facility]--11 Transcribed By: [facility] 12/07/21 1009 Dictated By: Slim Pettit Jr, DO 12/07/21 1007 Signed By: 12/07/[address] [facility] Vital Signs Date Time Vital Sign Value Performing Clinician Facility 03-20-2022 07:57-0400 Blood Pressure Location [facility] 03-20-2022 07:57-0400 Diastolic blood pressure 70 mm[Hg] [facility] 03-20-2022 07:57-0400 Systolic blood pressure 138 mm[Hg] [facility] 03-15-2022 09:30-0400 Body height 182.88 cm Lala Hinds Other [facility] [employer] Other 03-15-2022 09:30-0400 Body mass index (BMI) [Ratio] 29.83 kg/m2 Lala Hinds Other [facility] Other 03-15-2022 09:30-0400 Body weight 99.79 kg Lala Hinds Other [facility] Other 12-07-2021 10:00-0400 Body height 182.88 cm Lala Hinds Other [facility] Other 12-07-2021 10:00-0400 Body mass index (BMI) [Ratio] 30.51 kg/m2 Lala Hinds Other [facility] Other 12-07-2021 10:00-0400 Body weight 102.06 kg Lala Hinds Other [facility] Other Encounters Encounter Date Encounter Type Care Provider Facility Start: 02-13-2025 End: 02-13-2025 ambulatory Marek Santiago JR Work Phone: [facility] Work Phone: Start: 02-13-2025 End: 02-13-2025 Departed Referred NON STAFF -[facility] Start: 02-03-2025 End: 02-03-2025 ambulatory Derikmarkos Marrero Facility:[facility] Start: 01-07-2025 End: 01-07-2025 ambulatory Derik Marrero Facility:[facility] Start: 03-20-2023 End: 03-21-2023 ambulatory Dyan MASSEY Facility:[facility] Start: 03-20-2023 End: 03-20-2023 Patient encounter procedure Dyan MASSEY General Surgery [facility] Start: 03-08-2023 ambulatory Serafin ARAGON Facility:[facility] Start: 09-14-2022 End: 09-14-[address] HILDA SOTO . Facility: Start: 03-20-2022 End: 03-20-2022 Patient encounter procedure Serafin ARAGON [facility] Start: 03-15-2022 End: 03-15-2022 ambulatory Lala Hinds Other [facility] Other Start: 03-15-2022 Office outpatient vi sit 15 minutes Lala Calvey [facility] Start: 03-14-2022 End: 03-15-[address] MAREK SANTIAGO Facility:[facility] Start: 02-08-2022 End: 02-08-2022 ambulatory Lala Hinds Other [facility] Other Start: 02-08-2022 Postop follow up vis it related to original px Lala Calvey [facility] Start: 01-11-2022 End: 01-11-2022 ambulatory Lala Hinds Other [facility] Other Start: 01-11-2022 Postop follow up vis it related to original px Lala Calvey [facility] Start: 12-16-2021 End: 12-16-2021 ambulatory Lala Hinds Other [facility] Other Start: 12-16-2021 Postop follow up vis it related to original px Lala Calvey [facility] Start: 12-14-2021 Encounter for preprocedural laboratory examination LALA HINDS [facility] Start: 12-07-2021 End: 12-08-2021 Encounter for preprocedural laboratory examination LALA HINDS Facility:[facility] Start: 12-07-2021 End: 12-08-2021 ambulatory LALA HINDS [facility] Start: 12-07-2021 Encounter for other preprocedural examination Lala Hinds [facility] Start: 12-07-2021 Office outpatient ne w 45 minutes Lalaelizabeth Hinds [facility] Start: 12-05-2021 End: 12-05-[address] MAREK SANTIAGO Facility:[facility] Procedures Date Procedure Procedure Detail Performing Clinician Start: 03-07-2023 Appendectomy Dyan TREVINO Start: 09-21-2020 Cystoscopy Serafin ESQUIVEL [place] Start: 09-16-2020 Cystoscopy Serafin ESQUIVEL [place] Start: 09-09-2020 Extracorporeal shock wave lithotripsy [...] ARAGON History of cervical spine fusion Dyan SHERHone and Strop neck fusion Serafin ARAGON Tonsillectomy Serafin ARAGON Plan of Treatment Date Care Activity Detail Author Start: 02-13-2025 Bacteria identified in Urine by Culture Urine Culture [facility] Start: 02-13-2025 Urine culture [facility] Start: 04-11-2023 ambulatory Ambulatory Facility:[facility] Immunizations Immunization Date Immunization Notes Care Provider Fa [facility] 06-11-2021 SARS-CoV-2 (COVID-19 ) mRNA-1273 vaccine Dyan SHERHone and [facility] [place] Comment on above: Result Comment: 2022: [id number] 10-15-2020 SARS-CoV-2 (COVID-19 ) mRNA-1273 vaccine Dyan SHERL [facility] [place] 09-17-2020 SARS-CoV-2 (COVID-19 ) mRNA-1273 vaccine Dyan SHERL [facility] [place] 04-23-2019 influenza virus vaccine, live, attenuated, for intranasal use Serafin ARAGON [facility] Payers Date Payer Category Payer Unknown [id number] 2020 Unknown 2015 Medicare [id number] 1961 Unknown [id number] 2. [id number] 1960 Unknown [id number] 2.16.84 [id number] 1960 Unknown [id number] 2.16.84 [id number] 1960 Unknown [id number] 2.16.84 [id number] 1960 Unknown [id number] 2.16.84 [id number] 1960 Unknown [id number] 2.16.8 [id number] 1960 Unknown [id number] 2.16.8 [id number] 1960 Unknown [id number] 2.16.8 [id number] 1960 Unknown [id number] 2.16.8 [id number] Unknown Alexander BC/LISA [id number] Social History Date Type Detail Facility Sex Assigned At [facility] Start: 03-20-2022 Tobacco smoking status Never s moked tobacco (finding) [facility] Start: 12-08-2021 End: 03-20-2023 Tobacco smoking status Ex-smoker (finding) [facility] Tobacco smoking status Never [facility] Sex Male (finding) [facility] Start: 1960 Sex Assigned At Male [facility] Medical Equipment Procedure Code Equipment Code Equipment Original Text Equipment Identifier Dates EXTRACORPOREAL S HOCK WAVE LITHOTRIPSY Serafin ARAGON MD P 09/09/20 Unknown Ureter R {[id number]{ [id number]{10}[id number] FDA Start: 09-09-2020 CYSTOSCOPY URETE ROSCOPY Serafin ARAGON MD P 09/16/20 Unknown Ureter R {[id number]{ 17}[id number]{10}[id number] FDA Start: 09-16-2020 Functional Status Date Assessment Result Facility 03-20-2023 Functional Status N/A [facility] rgbillie Marybeth 03-20-2022 Functional Status N/A [facility] Clinical Notes 12-07-2021 to 02-06-2025 Note Date & Type Note Facility 02-06-2025 Note [id number]#1.00[facility] 02-04-2025 Note [id number]#1.00[facility] 02-03-2025 Note [facility] SURGERY Clinical Discharge Summary PERSON INFORMATION Name YDAN HARRELL Age 64 Years 1960 Sex MALE Language Tamazight PCP MAREK SANTIAGO JR. Marital Status Single Phone Med Service Ambulatory Surgery Acct# Arrival 02/03/2025 09:00:14 Visit Reason Surgery-Bilat ESWL Acuity LOS 060 01:54 Address: [address] [place] [address] Comment: PROVIDER INFORMATION VITALS INFORMATION Vital Sign [...] ACTIVITY (more content not included)... [facility] 01-08-[address] Tyson reviews JOSÉ LUIS T information and testing results. Ok to proceed with procedure. Wants patient to hold Farxiga for 3-4 days prior to procedure. Will call patient to instruct them. [Electronically Signed on: 01/08/2025 07:37 EDT] Lady Looney RN [Verified on: 01/08/2025 07:37 EDT] Lady Looney RN Spoke with patient, instructed as above, verbalized understanding. [Electronically Signed on: 01/08/2025 10:45 EDT] Lady Looney RN [facility] 03-20-2022 Hospital Discharg e instructions Patient Education 03/20/2022 08:07:07 Kidney Stones, Hjge-jf-Nynt Kidney Stones Kidney stones are rock-like masses [...] Follow these instructions at home: Medicines Take lzdu-tsk-hgbawde and prescription medicines only as told by [...] 12/11/2008 Document Revised: 11/11/2019 Document Reviewed: 11/11/2019 [employer] Patient Education 2020 [employer] [facility] Follow Up Care 09/07/2021 09:12:58 With:MARGO SIMON, Serafin Mixon, URL Address: [address] [place], [place] [id number]- When:Within 6 Month(s) [facility] 03-15-2022 Evaluation note Encounter Date Diagnosis Assessment [...] Other specified postprocedural states (ICD-10 - Z98.890) [facility] 08-03-2022 Evaluation note* Encounter Date Diagnosis [...] Other specified postprocedural states (ICD-10 - Z98.890) [facility] 07-06-2022 Evaluation note* Encounter Date Diagnosis [...] Other specified postprocedural states (ICD-10 - Z98.890) [facility] Other 06-10-2022 Evaluation note* Encounter Date Diagnosis [...] Other specified postprocedural states (ICD-10 - Z98.890) [facility] Other 06-01-2022 Evaluation note* Encounter Date Diagnosis [...] S61.401A) Dec, Pre-op exam (ICD-10 - Z01.818) [facility] Other Evaluation + Plan note Future Appointments Appointment Date:09/25/2022 08:45:00 AM Scheduled Provider:Serafin ARAGON MD Location:[facility] Appointment Type:URO Office Visit [facility] Evaluation + Plan note Future Appointments Appointment Date:04/11/2023 08:00:00 AM Scheduled Provider:Serafin ARAGON MD Location:[facility] Appointment Type:URO Office Visit [facility] [place] Evaluation noteNo assessment information available [facility] Work Phone: History general Narrative - Reported* Type Description Date Medical History kidney stones Medical History metformin Surgical History gallbladder Surgical History tonsillectomy Surgical History lithotripsy Surgical History cervical fusion Surgical History kidney stents\ [facility] Hospital course Narrative No data available for this section [facility] Hospital Discharge instructions No data available for this section [facility] [place] Progress note No data available for this section [facility] Reason for referral (narrative)No [facility]: Summary Purpose Family History Relationship Condition Age at Onset Recorded Date/T yahir mother Malignant neoplasm of lung Unknown mother Malignant neoplasm Unknown Advance Directives Advance Directive Response Recorded Date/ Time Advance Directives No December 07 10:38am Additional Source Comments REASON FOR VISIT (unrecogniz ed section and content) Recheck Right Ring FingerRig ht Ring Finger LacerationRecheck Right Ring FingerRecheck Right Ring FingerRecheck Right Ring Finger (unrecognized sect ion and content) No Status Records FoundNo Status Records FoundNo Status Records FoundNo Status Records Found INFORMATION SOURCE (unrecogn ized section and content) DATE CREATED AUTHOR 01/17/2022 [facility] DATE CREATED AUTHOR AUTHOR'S ORGANIZ ATION 09/17/2022 [facility] DATE CREATED AUTHOR AUTHOR'S ORGANIZ ATION 03/21/2023 [facility] DATE CREATED AUTHOR AUTHOR'S ORGANIZ ATION 02/10/2025 [facility] l Care Team (unrecognized sect ion and content) Team Status: Active Member Role Status Dates Marek Santiago JR DO Primary Care Provider Active Team Status: Inactive Member Role Status Dates Marek Santiago JR DO Primary Care Provider Active Start: February 13, 2025 End: February 13, 2025 NON STAFF Attending Provider Active Start: 2024 End: February 13, 2025 Goals (unrecognized section and content) Goals may be documented in a n alternate section FOR RECORDS PERTAINING TO PATIENTS WHO ARE [...] BE BASED ON THE PRIMARY CLINICAL RECORDS. [facility] [email or web address] provides no warranty or guarantee of the accuracy or completeness of information in this document.
[2025-02-15 01:29] LABS: Glucose Urine UA >=1000 mg/dL (NEGATIVE)
[2025-02-15 01:30] LABS: Hematocrit 40.6 % (42.0-54.0); Hemoglobin 14.1 g/dL (14.0-18.0); Mean Corpuscular HGB Conc 34.7 g/dL (29.9-35.2); Mean Corpuscular Hemoglobin 29.3 pg (25.9-34.0); Mean Corpuscular Volume 84.2 fL (80.0-94.0); Platelet Count 270 10^3/uL (150-450); Red Blood Count 4.82 10^6/uL (4.70-6.10); White Blood Count 16.4 10^3/uL (4.0-11.0)
[2025-02-15] MEDS: KETOROLAC TROMETHAMINE 30 MG/ML VIAL 15 MG IVP (01:30)
[2025-02-15] MEDS: HYDROMORPHONE HCL 1 MG/ML CARTRIDGE IV (01:31)
[2025-02-15 01:35] LABS: Anion Gap 14.1; Blood Urea Nitrogen 18.0 mg/dL (7.0-18.0); Calcium 10.1 mg/dL (8.5-10.1); Carbon Dioxide 25.5 mmol/L (21.0-32.0); Chloride 96 mmol/L (98-107); Estimated GFR (African America >60 (>=60 mL/min/1.73m^2); Estimated GFR (Non-African Ame >60 (>=60 mL/min/1.73m^2); Glucose 177 mg/dL (74-106); Potassium 3.6 mmol/L (3.5-5.1); Sodium 132 mmol/L (136-145)
[2025-02-15 01:38] LABS: Cast Seen? NONE SEEN #/LPF (NONE SEEN); Crystals Seen? None Seen #/HPF (None Seen); Urine Culture Indicated YES-FRMC
[2025-02-15 01:45] LABS: Basophils Abs Manual 0.00 10^3/uL (0.00-0.10); Basophils Percent Manual 0.0 % (0.2-2.0); Eosinophils Absolute Manual 0.00 10^3/uL (0.00-0.70); Eosinophils Percent Manual 0.0 % (0.9-7.0); Lymphocytes Absolute Manual 1.31 10^3/uL (1.20-3.80); Lymphocytes Percent Manual 8.0 % (20.5-60.0); Monocytes Absolute Manual 1.64 10^3/uL (0.30-0.80); Monocytes Percent Manual 10.0 % (1.7-12.0); Segmented Neut Absolute Manual 13.44 10^3/uL (1.4-6.5); Segmented Neutrophils % Manual 82.0 (43.0-75.0)
--- NOTE | 2025-02-15 02:53 | ED.GENADUL1 ---
HPI HPI - General Adult General Chief complaint: Urogenital-Male Stated complaint: uti Time Seen by Provider: 02/15/25 01:02 Source: patient Mode of arrival: walk-in History of Present Illness HPI narrative: Patient is a 64-year-old male presenting to the emergency department for concerns of lower abdominal pain and urinary hesitancy. Patient has a history of recurrent nephrolithiasis. Patient was seen in the emergency department last night for similar complaint. At that time, he was complaining of lower abdominal pressure and dysuria. He underwent a CT scan that demonstrated nonobstructive stones in the bilateral renal calyces, largest measuring 6 mm. He was also found to have a UTI, was treated with appropriate antibiotics. Since his discharge, he states he has been feeling better and the dysuria is improving. However, throughout the night tonight, he has had increased pressure/pain in the lower part of his abdomen. He states that he feels like he is having urinary hesitancy, only able to urinate small amount of urine at a time. He denies any nausea, vomiting, fevers, or chills. No flank pain. No chest pain or shortness of breath. Related Data Home Medications ?Medication ?Instructions ?Recorded ?Confirmed hydrochlorothiazide 12.5 mg capsule 12.5 mg PO DAILY 03/07/23 02/15/25 semaglutide 7 mg tablet (Rybelsus) 7 mg PO DAILY 03/07/23 02/15/25 tamsulosin 0.4 mg capsule (Flomax) 0.4 mg PO DAILY 03/07/23 02/15/25 metformin 500 mg tablet 500 mg PO BID 02/15/25 02/15/25 Previous Rx's ?Medication ?Instructions ?Recorded hydrocodone 5 mg-acetaminophen 325 1 tab PO Q6H PRN pain 5 days #10 03/07/23 mg tablet tabs cephalexin 500 mg capsule 500 mg PO TID 7 days #21 caps 02/13/25 Allergies Allergy/AdvReac Type Severity Reaction Status Date / Time No Known Drug Allergies Allergy Verified 02/13/25 04:34 Opioid HPI Opioid Management Most Recent Opioid Data: Last Pain Scale 0 02/13/25, 07:23 Last ED Pain Assessment 02/13/25, 05:18 Last MAR Pain Assessment 02/13/25, 04:57 Review of Systems ROS Status of ROS 10 or more systems reviewed and unremarkable except as noted in history and below [facility] Social History Little interest or pleasure in doing things: not at all Feeling down, depressed, or hopeless: not at all Exam Narrative Exam Narrative: CONSTITUTIONAL: Appears uncomfortable, answering questions of following commands appropriately. SKIN: Was warm and mildly diaphoretic. EYES: Sclerae white. EARS, NOSE, THROAT: Moist oral mucosa. RESPIRATORY: Clear to auscultation bilaterally, no wheezes, crackles, or stridor, no use of accessory muscles CARDIOVASCULAR: Tachycardic rate and regular rhythm. There is no S3, S4, murmur, rub. GASTROINTESTINAL: Abdomen soft, nondistended, and nontender. No rebound tenderness or guarding. MUSCULOSKELETAL: No peripheral edema. NEUROLOGIC: Patient is awake and alert. Facies were symmetrical. Constitutional Vital Signs, click to edit/add: Last Vital Signs Temp 98.0 F 02/15/25 00:59 Pulse 106 H 02/15/25 00:59 Resp 20 02/15/25 00:59 BP 132/87 02/15/25 00:59 Pulse Ox 98 02/15/25 00:59 O2 Del Method Room Air 02/15/25 00:59 Course Vital Signs Vital signs: Vital Signs Temperature 98.0 F 02/15/25 00:59 Pulse Rate 106 H 02/15/25 00:59 Respiratory Rate 20 02/15/25 00:59 Blood Pressure 132/87 02/15/25 00:59 Pulse Oximetry 98 02/15/25 00:59 Oxygen Delivery Method Room Air 02/15/25 00:59 Temperature 98.0 F 02/15/25 00:59 Pulse Rate 106 H 02/15/25 00:59 Respiratory Rate 20 02/15/25 00:59 Blood Pressure 132/87 02/15/25 00:59 Pulse Oximetry 98 02/15/25 00:59 Oxygen Delivery Method Room Air 02/15/25 00:[address] Decision [address] [facility] Narrative Medical decision making narrative: Patient is a 64-year male presenting to the emergency department for evaluation of lower abdominal pain and urinary hesitancy worsening throughout the night. Of note, patient was seen in the emergency department yesterday for dysuria/abdominal pain. CT scan at that time demonstrated nonobstructive renal stones in the bilateral calyces. He was diagnosed with a UTI, given 1 g of Rocephin, and discharged on Keflex which he has been taking regularly. Vital signs on arrival during this visit were significant for tachycardia, otherwise were within normal limits. He is afebrile and hemodynamically stable. Patient appears quite uncomfortable, and frequently attempts to urinate but only voids a minimal amount of urine. His abdomen is soft, nontender, without peritoneal signs. Differential diagnosis includes urinary retention, obstructive ureteral stone, ERIN, and less likely resistant UTI. IV was established and repeat laboratory studies were obtained. Repeat CT abdomen/pelvis was ordered. He was given 1 mg IV Dilaudid, 15 mg IV ketorolac, 4 mg IV Zofran, and 1 L bolus normal saline for symptomatic treatment. Laboratory studies actually improved when compared to yesterday's labs. His leukocytosis has improved. His renal function remains normal. His urinalysis is improving with only trace bacteria, 10-20 WBCs, and a small amount of leukocyte esterase. CT abdomen/pelvis without contrast independently reviewed and interpreted by myself demonstrated no evidence of ureteral calculus, obstructive stones, or hydronephrosis. His bladder is markedly distended. The final radiology read is pending at the time of discharge. At this time, the patient's presentation is likely explained by acute urinary retention. Patient was straight cathed for 800 cc of urine, with almost immediate improvement of his pain and tachycardia. Unclear as to the exact etiology of his urinary retention considering there is no obstructive stone and has a normal size prostate. Given that the patient's renal function remains normal, his UTI seems to be improving, and he exhibits no signs of worsening infection/sepsis, I do believe he is stable for discharge. I do not believe the patient requires Tucker catheter at this time. However, I did instruct the patient to return to the emergency department should he have recurrence of his symptoms/retention - at which time he would likely need an indwelling urethral catheter. I do believe the patient is stable for discharge at this time. They were instructed to follow up with urology within the next 5 to 7 days for further care. Return precautions were given including any new or worsening symptoms. Patient understands and agrees to the plan. Medical Records Medical records reviewed: Yes I reviewed the patient's medical records Lab Data Lab results reviewed: Yes I reviewed the patient's lab results Labs: Lab Results 02/15/25 02/15/25 Range/Units 01:20 01:21 WBC 16.4 H (4.0-11.0) 10^3/uL RBC 4.82 (4.70-6.10) 10^6/uL Hgb 14.1 (14.0-18.0) g/dL Hct 40.6 L (42.0-54.0) % MCV 84.2 (80.0-94.0) fL MCH 29.3 (25.9-34.0) pg MCHC 34.7 (29.9-35.2) g/dL RDW 13.0 (11.0-15.0) % Plt Count 270 (150-450) 10^3/uL MPV 9.4 L (9.5-13.5) fL Seg Neuts % (Manual) 82.0 H (43.0-75.0) Lymphocytes % (Manual) 8.0 L (20.5-60.0) % Monocytes % (Manual) 10.0 (1.7-12.0) % Eosinophils % (Manual) 0.0 L (0.9-7.0) % Basophils % (Manual) 0.0 L (0.2-2.0) % Neutrophils # (Manual) 13.44 H (1.4-6.5) 10^3/uL Lymphocytes # (Manual) 1.31 (1.20-3.80) 10^3/uL Monocytes # (Manual) 1.64 H (0.30-0.80) 10^3/uL Eosinophils # (Manual) 0.00 (0.00-0.70) 10^3/uL Basophils # (Manual) 0.00 (0.00-0.10) 10^3/uL Sodium 132 L (136-145) mmol/L Potassium 3.6 (3.5-5.1) mmol/L Chloride 96 L (98-107) mmol/L Carbon Dioxide 25.5 (21.0-32.0) mmol/L Anion Gap 14.1 BUN 18.0 (7.0-18.0) mg/dL Creatinine 1.09 (0.70-1.30) mg/dL Est GFR ( Amer) >60 (>=60 mL/min/1.73m^2) Est GFR (Non-Af Amer) >60 (>=60 mL/min/1.73m^2) BUN/Creatinine Ratio 16.5 Glucose 177 H (74-106) mg/dL Calcium 10.1 (8.5-10.1) mg/dL Urine Color Lt. yellow (YELLOW) Urine Clarity Clear (CLEAR) Urine pH 6.0 (5.0-9.0) Ur Specific [place] 1.010 (1.005-1.025) Urine Protein 30 A (NEG/TRACE) mg/dL Urine Glucose (UA) >=1000 A (NEGATIVE) mg/dL Urine Ketones >=80 A (NEGATIVE) mg/dL Urine Occult Blood Trace-i (NEGATIVE) Urine Nitrite Negative (NEGATIVE) Urine Bilirubin Negative (NEGATIVE) Urine Urobilinogen 1.0 (0.2-1.0) EU/dL Ur Leukocyte Esterase Small A (NEGATIVE) Urine RBC 0-2 (0-2) #/HPF Urine WBC 10-20 A (NONE SEEN) #/HPF Ur Squamous Epith Cells None seen (NONE/RARE) #/LPF Urine Crystals None seen (None Seen) #/HPF Urine Bacteria Trace A (NONE SEEN) #/HPF Urine Casts None seen (NONE SEEN) #/LPF Urine Mucus None seen (NONE SEEN) Ur Culture Indicated? Yes[place] [place] Discharge Chief Complaint: Urogenital-Male Clinical Impression: Acute urinary retention, Kidney calculus Patient Disposition: Home, Self-Care Time of Disposition Decision: 02:40 Condition: Good Mode of Transportation: Private Vehicle Prescriptions / Home Meds: No Action hydrocodone-acetaminophen 5-325 mg tablet 1 tab PO Q6H PRN (Reason: pain) 5 Days Qty: 10 0RF metformin 500 mg tablet 500 mg PO BID hydrochlorothiazide 12.5 mg capsule 12.5 mg PO DAILY tamsulosin [Flomax] 0.4 mg capsule 0.4 mg PO DAILY Rybelsus 7 mg tablet 7 mg PO DAILY cephalexin 500 mg capsule 500 mg PO TID 7 Days Qty: 21 0RF Print Language: Romansh Instructions: Kidney Stones (ED), Urinary Retention in Men (ED) Referrals: CINDY SANTIAGO DO [Primary Care Provider, Family Practice] - 1 week Feng Ramirez MD [Physician, Urology] - 1 week Discharge Date/Time: 02/15/25 02:53
== END 2025-02-15 02:53 | disposition home or self-care (01) ==
PROVIDERS: Emergency Provider Student in an Organized Health Care Education/Training Program; PCP Internal Medicine
DX: R33.9 Retention of urine, unspecified (principal); N20.0 Calculus of kidney; K86.1 Other chronic pancreatitis; K76.0 Fatty (change of) liver, not elsewhere classified
CPT/HCPCS: 36415; 74176; 80048; 81001; 85007; 85027; 87086; 87088; 87186; 96374; 96375; 99285; J1171; J1885; J2405

== ENCOUNTER 2025-02-16 10:06 | Emergency (ER) | payer MEDICARE, OTHER, SELFPAY ==
[2025-02-16 10:11] VITALS: BP 138/88; PULSE 90; TEMP 37.1; O2SAT 99; BMI 25.8
--- NOTE | 2025-02-16 10:32 | ED.GENADUL1 ---
HPI HPI - General Adult General Chief complaint: Urogenital-Male Stated complaint: NEEDS CATHETER PUT IN Time Seen by Provider: 02/16/25 10:12 Source: patient Mode of arrival: walk-in History of Present Illness HPI narrative: 64-year-old male presents to the emergency department for inability to urinate. He has been dribbling small amounts today. He recently had lithotripsy. He called his urologist office and they told him to go to the emergency department. Related Data Home Medications ?Medication ?Instructions ?Recorded ?Confirmed hydrochlorothiazide 12.5 mg capsule 12.5 mg PO DAILY 03/07/23 02/15/25 semaglutide 7 mg tablet (Rybelsus) 7 mg PO DAILY 03/07/23 02/15/25 tamsulosin 0.4 mg capsule (Flomax) 0.4 mg PO DAILY 03/07/23 02/15/25 metformin 500 mg tablet 500 mg PO BID 02/15/25 02/15/25 Previous Rx's ?Medication ?Instructions ?Recorded hydrocodone 5 mg-acetaminophen 325 1 tab PO Q6H PRN pain 5 days #10 03/07/23 mg tablet tabs cephalexin 500 mg capsule 500 mg PO TID 7 days #21 caps 02/13/25 Allergies Allergy/AdvReac Type Severity Reaction Status Date / Time No Known Drug Allergies Allergy Verified 02/13/25 04:34 Opioid HPI Opioid Management Most Recent Opioid Data: Last Pain Scale 8 Today, 11:09 Last ED Pain Assessment 02/13/25, 05:18 Last MAR Pain Assessment 02/13/25, 04:57 Review of Systems ROS Narrative A ten point review of systems is negative except as noted above. PFSH PFSH Social History Little interest or pleasure in doing things: not at all Feeling down, depressed, or hopeless: not at all Exam Narrative Exam Narrative: Nurses note and vital signs reviewed and patient is not hypoxic. General: The patient appears uncomfortable Skin: Warm, dry, no pallor noted. There is no rash noted. Head: Normocephalic, atraumatic Eye: Normal conjunctiva, no drainage Ears, Nose, Mouth, and Throat: oral mucosa is moist. Nares patent. Cardiovascular: Regular Rate and Rhythm Respiratory: Patient is in no distress, no accessory muscle use, lungs are clear to auscultation, no wheezing, rales or rhonchi Back: non-tender GI: Initially mildly distended. Musculoskeletal: The patient has no evidence of calf tenderness, no pitting edema, symmetrical pulses noted bilaterally Neurological: A&O, normal speech Psychiatric: Cooperative Constitutional Vital Signs, click to edit/add: Last Vital Signs Temp 98.8 F 02/16/25 10:11 Pulse 90 02/16/25 10:11 Resp 20 02/16/25 10:11 BP 138/88 02/16/25 10:11 Pulse Ox 99 02/16/25 10:11 O2 Del Method Room Air 02/16/25 10:11 Course Vital Signs Vital signs: Vital Signs Temperature 98.8 F 02/16/25 10:11 Pulse Rate 90 02/16/25 10:11 Respiratory Rate 20 02/16/25 10:11 Blood Pressure 138/88 02/16/25 10:11 Pulse Oximetry 99 02/16/25 10:11 Oxygen Delivery Method Room Air 02/16/25 10:11 Temperature 98.8 F 02/16/25 10:11 Pulse Rate 90 02/16/25 10:11 Respiratory Rate 20 02/16/25 10:11 Blood Pressure 138/88 02/16/25 10:11 Pulse Oximetry 99 02/16/25 10:11 Oxygen Delivery Method Room Air 02/16/25 10:11 Medical Decision Making MDM Narrative Medical decision making narrative: Tucker catheter inserted with resolution of his symptoms. No evidence of UTI and he is already on Keflex. He has an appointment with his urologist tomorrow that he will keep. Treatment diagnosis and follow-up were discussed with the patient. Differential Diagnosis Differential Diagnosis: Urinary retention Lab Data Lab results reviewed: Yes I reviewed the patient's lab results Labs: Lab Results 02/16/25 Range/Units 10:29 Urine Color Lt. yellow (YELLOW) Urine Clarity Clear (CLEAR) Urine pH 6.0 (5.0-9.0) Ur Specific [place] 1.010 (1.005-1.025) Urine Protein Negative (NEG/TRACE) mg/dL Urine Glucose (UA) >=1000 A (NEGATIVE) mg/dL Urine Ketones Trace A (NEGATIVE) mg/dL Urine Occult Blood Trace-i (NEGATIVE) Urine Nitrite Negative (NEGATIVE) Urine Bilirubin Negative (NEGATIVE) Urine Urobilinogen 0.2 (0.2-1.0) EU/dL Ur Leukocyte Esterase Negative (NEGATIVE) Urine RBC 0-2 (0-2) #/HPF Urine WBC 0-2 A (NONE SEEN) #/HPF Ur Squamous Epith Cells Rare (NONE/RARE) #/LPF Urine Crystals None seen (None Seen) #/HPF Urine Bacteria Trace A (NONE SEEN) #/HPF Urine Casts None seen (NONE SEEN) #/LPF Urine Mucus None seen (NONE SEEN) Ur Culture Indicated? No Discharge Plan Discharge Chief Complaint: Urogenital-Male Clinical Impression: Acute urinary retention Patient Disposition: Home, Self-Care Time of Disposition Decision: 10:45 Condition: Good Mode of Transportation: Private Vehicle Prescriptions / Home Meds: No Action hydrocodone-acetaminophen 5-325 mg tablet 1 tab PO Q6H PRN (Reason: pain) 5 Days Qty: 10 0RF metformin 500 mg tablet 500 mg PO BID hydrochlorothiazide 12.5 mg capsule 12.5 mg PO DAILY tamsulosin [Flomax] 0.4 mg capsule 0.4 mg PO DAILY Rybelsus 7 mg tablet 7 mg PO DAILY cephalexin 500 mg capsule 500 mg PO TID 7 Days Qty: 21 0RF Print Language: Iraqi Instructions: Tucker Catheter Placement and Care (ED), How to Change a Catheter Drainage Bag (DC) Additional Instructions: See Dr. Marrero at your appointment tomorrow Referrals: CINDY SANTIAGO DO [Primary Care Provider, Family Practice] - 1 week
[2025-02-16 10:51] LABS: Glucose Urine UA >=1000 mg/dL (NEGATIVE)
[2025-02-16 11:05] LABS: Crystals Seen? None Seen #/HPF (None Seen)
[2025-02-16 11:06] LABS: Cast Seen? NONE SEEN #/LPF (NONE SEEN); Urine Culture Indicated NO
== END 2025-02-16 11:37 | disposition home or self-care (01) ==
PROVIDERS: Emergency Provider Emergency Medicine; PCP Internal Medicine
DX: R33.9 Retention of urine, unspecified (principal); Z46.82 Encounter for fitting and adjustment of non-vascular catheter
CPT/HCPCS: 51702; 51798; 81001; 99284

== ENCOUNTER 2025-03-10 10:56 | Outpatient (OUT) | payer MEDICARE, OTHER, SELFPAY ==
--- OUTSIDE RECORDS SUMMARY | 2025-03-10 08:22 | XMS_ITS | CCD ---
Author Organization 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 Name Role Phone Lala Hinds Unavailable MAREK SANTIAGO JR Primary Care Physician [phone] BRITTANY Zhong, DR STEVENS Admitting Unavailable BRITTANY [...] Primary Care Unavailable ARSENIO GOODWIN Attending Unavailable JOSÉ LUIS WILKERSON Consulting UnavailARSENIO Choi Admitting Unavailable Serafin ARAGON Attending Unavailable Dyan MASSEY Attending Unavailable Marek Santiago JR Primary Care Provider NON STAFF Attending Provider Unavailable Melody Siddiqi APRN Emergency Provider Orlando Walton MD Admit Provider Orlando Walton MD Attending Provider Negrita Smyth RN Other Provider Unavailable Tiny Siu DO Other Provider Marla Ware MD Other Provider [phone] Stephon Carrington MD Other Provider Agatha Styles APRN Other Provider Nemo Hensley MD Other Provider Aliyah Heredia MD Other Provider [facility] Other Provider Dyan Sharp DO Attending Provider Derik Marrero Attending Unavailable Derik Marrero Admitting Unavailable VALONE MAREK HUNT Primary Care Unavailabl e Derik Marrero Admitting Unavailable Derik Marrero Attending Unavailable VALONE JRFarheen, MAREK Aleman Primary Care Unavailabl e Derik Marrero Attending Unavailable VALONE , MAREK Aleman Primary Care Unavailabl Derik Mccray Attending Unavailable Derik Marrero Admitting Unavailable VALONE JR., MAREK Aleman Primary Care Unavailabl e Derik Marrero Attending Unavailable VALONE JR., MAREK Aleman Primary Care Unavailabl e Derik Marrero Admitting Unavailable NON STAFF Admitting Unavailable NON STAFF Attending Unavailable NON STAFF Admitting Unavailable NON STAFF Attending Unavailable Marek Santiago Primary Care Unavailable Dyan Sharp Attending Unavailable Marek Santiago Primary Care Unavailable Orlando Walton Admitting Unavailable Negrita Smyth Consulting Unavailable Negrita Smyth Consulting Unavailable Tiny Siu Consulting Unavailable Marla Ware Consulting Unavailable Stephon Carrington Consulting Unavailable Agatha Styles Consulting Unavailable Nemo Hensley Consulting Unavailable Aliyah Heredia Consulting Unavailable Jessica Garcia Consulting Unavailable Allergies Allergy Classification Reported Allergen(s) Allergy Type Date of Onset Reaction(s) Facility (1 source) No Known Medication Allergies; Translations: [No Known Medication Allergies] Propensity to adverse reactions (disorder) [facility] Repository Medications Current Medications Medication Drug Class(es) Dates Sig (Normalized) Sig (Original) aspirin 81 mg chewable tablet (1 source) Platelet Aggregation Inhibitor, Nonsteroidal Anti-inflammator y Drug Start: 5 take 1 tablet by mouth once daily calcium citrate 1000 mg oral tablet (2 sources) Start: 5 take 1 tablet by mouth once daily Calcium Citrate 1,000 mg tablet Active 1000 MG PO Daily February 26, 2025 12:00am Complies with drug therapy ezetimibe 10 mg oral tablet (2 sources) Dietary Cholesterol Absorption Inhibitor Start: 5 take 5 mg by mouth once daily Ezetimibe 10 mg tablet Active 5 MG PO Daily February 26, 2025 12:00am Complies with drug therapy hydroCHLOROthiazide 12.5 mg oral capsule (11 sources) Thiazide Diuretic Start: take 4 capsules by mouth once daily Hydrochlorothiazide 12.5 mg Capsule Active 50 MG PO Daily December 08, 2021 12:00am Complies with drug therapy Start: 12-08-2021 take 1 capsule by mouth once d aily hydroCHLOROthiaz serenity Active levoFLOXacin 750 mg oral tablet (1 source) Quinolone Antimicrobial Start: 03-01-2025 take 1 tablet by mouth once daily metFORMIN hydrochloride 500 mg oral tablet (10 sources) Biguanide Start: 12-08-2021 take 1 tablet by mouth once daily Start: 07-16-2019 take 1 tablet by thiago th twice daily Metformin 500 mg Tablet Active 500 MG PO Twice daily December 08, 2021 12:00am Complies with drug therapy metFORMIN HCl Ac tive metoprolol tartrate 25 mg oral tablet (1 source) beta-Adrenergic Jennifer Start: 03-01-2025 Multivitamin, Therapeutic w/ Minerals (2 sources) Start: 09-09-2020 take 1 tablet by mouth once daily Multivitamin, Therapeutic w/ Minerals 1 tab(s), Oral, Daily, Prophylaxis Start Date: 09/09/20 Status: Ordered Nature's Bounty Probiotic oral tablet (1 source) Start: 09-09-2020 take 1 tablet by mouth once daily Nature's Bounty Probiotic oral tablet 1 tab(s), Oral, Daily, Prophylaxis Start Date: 09/09/20 Status: Ordered microencapsulated potassium chloride 20 meq extended release oral tablet (2 sources) Start: 02-26-2025 Potassium Chloride (Klor-Con M20) 20 mEq tablet,ER particles/timi ls Active 20 MEQ PO Daily February 26, 2025 12:00am Complies with drug therapy pravastatin sodium 20 mg oral tablet (4 sources) HMG-CoA Reductase Inhibitor Start: 02-26-2025 take 1 tablet by mouth once daily Pravastatin 20 mg tablet Active 20 MG PO Daily February 26, 2025 12:00am Complies with drug therapy Start: 09-15-2020 take 1 tablet by thiago th once daily pravastatin 20 mg Tab 20 mg = 1 tab(s), Oral, Daily, Refills(s) 0, High cholesterol Start Date: 09/15/20 Status: Ordered semaglutide 14 mg oral tablet (3 sources) Start: 02-26-2025 take 1 tablet by mouth once daily Semaglutide (Rybelsus) 14 mg tablet Active 14 MG PO Daily February 26, 2025 12:00am Complies with drug therapy Start: 03-20-2023 take 1 tablet by thiago once daily Rybelsus 7 mg oral tablet 7 mg = 1 tab(s), Oral, Daily, Refills(s) 0 Start Date: 03/20/23 Status: Ordered tamsulosin hydrochloride 0.4 mg oral capsule (3 sources) alpha-Adrenergic Jennifer Start: 02-26-2025 take 1 capsule by mouth once daily Tamsulosin (Flomax) 0.4 mg capsule Active 0.4 MG PO Daily February 26, 2025 12:00am Complies with drug therapy Start: 03-20-2023 take 1 capsule by mo [facility] once daily Flomax 0.4 mg Cap 0.4 mg = 1 cap(s), Oral, Daily, Refills(s) 0 Start Date: 03/20/23 Status: Ordered Zinc (1 source) Start: 09-09-2020 Zinc 140 mg (a s elemental zinc 50 mg) oral tablet 140 mg = 1 tab(s), Oral, Daily, Prophylaxis Start Date: 09/09/20 Status: Ordered Completed/Discontinued Medications Medication Drug Class(es) Dates Sig (Normalized) Sig (Original) acetaminophen 325 mg / HYDROcodone bitartrate 5 mg oral tablet (4 sources) Opioid Agonist Start: 12-08-2021 End: 02-26-2025 take 1 tablet by mouth every four to six hours as needed for pain Hydrocodone-Acetam inophen 5-325 mg tablet Discontinued 1 - 2 TAB PO EVERY 4-6 HOURS as needed for pain 30 4 December 08, 2021 February 26, 2025 7:53pm cephalexin 500 mg oral capsule (6 sources) Cephalosporin Antibacterial Start: 12-08-2021 End: 02-26-2025 take 1 capsule by mouth four times daily Cephalexin 500 mg capsule Discontinued 500 MG PO Four times daily December 08, 2021 12:00am February 26, 2025 7:54pm dapagliflozin 5 mg oral tablet (3 sources) Sodium-Glucose Cotransporter 2 Inhibitor Start: 02-26-2025 End: 03-01-2025 take 1 tablet by mouth once daily Dapagliflozin Propanediol (Farxiga) 5 mg tablet Discontinued 5 MG PO Daily February 26, 2025 12:00am March 01, 2025 12:40pm Start: 09-02-2020 take 1 tablet by thiago th once daily Farxiga 5 mg oral tablet 5 mg = 1 tab(s), Oral, Daily, Refills(s) 0, Blood glucose Start Date: 09/02/20 Status: Ordered doxycycline hyclate 100 mg oral tablet (4 sources) Tetracycline-class Drug Start: 12-08-2021 End: 02-26-2025 take 1 tablet by mouth twice daily Doxycycline Hyclate 100 mg tablet Discontinued 100 MG PO Twice daily 10 December 08, 2021 12:00am February 26, 2025 7:53pm pitavastatin calcium 1 mg oral tablet (10 sources) HMG-CoA Reductase Inhibitor Start: 12-08-2021 End: 02-26-2025 take 1 tablet by mouth once daily Pitavastatin Calcium (Livalo) 1 mg Tablet Discontinued 1 MG PO Daily December 08, 2021 12:00am February 26, 2025 7:51pm Start: 09-07-2021 Livalo 2 mg or al tablet Refills(s) 0 Start Date: 09/07/21 Status: Ordered Livalo Active Problems Active Problems Problem Classification Problem Date [...] stent 07-16-2019 Episodic Diabetes mellitus without complication (8 sources) Diabetes mellitus; Translations: [Type 2 diabetes [...] EHR Cmte Other aftercare (1 source) 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 EHR Cmte Other nutritional; endocrine; and metabolic disorders (2 sources) Body mass index 30+ - obesity 02-16-2021 Chronic Other nutritional; endocrine; and metabolic disorders (1 source) Obesity 03-20-2023 Chronic Other screening for suspected conditions (not mental disorders or infectious disease) (5 sources) Raised cardiac enzyme or marker; Translations: [Other specified abnormal findings of blood chemistry] Onset: 02-26-2025 02-26-2025 Episodic Residual codes; unclassified (1 source) Acquired absence of other specified parts of digestive tract; Translations: [ACQ ABSENCE OTH PART DIGESTV TRACT] Onset: 09-16-2022 Episodic Septicemia (except in labor) (5 sources) Sepsis; Translations: [Sepsis, unspecified organism] Onset: 02-26-2025 02-26-2025 Episodic Unclassified (2 sources) Asymptomatic microscopic hematuria 03-20-2022 Unclassified (1 source) Cardiology will arrange outpatient stress test. Call office on Sunday to schedule follow-up with Cardiology. Unclassified (1 source) Call office on Sunday to schedule follow-up with your Primary Care Provider within 3-5 days of discharge. Unclassified (1 source) A [facility] screening has identified you as FRAIL or AT RISK FOR FRAILTY. This puts you at a higher risk for infection, illness, falls, and other injuries. Here are four ways to help you reduce your risk of frailty: 1. IDENTIFY EARLY SIGNS OF FRAILTY Discuss contributing factors and concerns with your doctor 2. BE ACTIVE Walking and light strengthening exercises will help reduce weakness 3. EAT WELL Aim for three healthy meals a day that are high in protein 4. THINK POSITIVE Keep your mind active by being sociable and continuing to learn References: Stay Strong: Four Ways to Beat the Frailty Risk [email or web address] jitfn-pmg-moxnjjhcpp/ gkbu-ixjmqp-joqj-ways -sf-kisf-nsy-fra ilty-risk 03-01-2025 Urinary tract infections (5 sources) Urinary tract infectious disease; Translations: [Urinary tract infection, site not specified] Onset: 02-26-2025 02-26-2025 Episodic Past or Other Problems Problem Classification Problem [...] Value Interpretation Reference Range Facility Coding Summaryon 03-02-2025 Coding Summary HTMLBase 64 [id number]+PGhlYWQ+PE [id number] XigaJVBOJUhZDuYhwvMvKG0dtW NjZXJu IC8+QD4wAAKxFnbcpSGof8V1mC B3K98kuk6pACrxiRM3HUBzTzFb qehpf0rdqKr0DSanLzwkVfOj ZVIlsU48KZU0dM59Pm55fPApmB Jcf0nbnOp3AqLtVUOwAMV8rWse GNfez3OmVQEbI48waDGzr1G4 EVUtfEhdqEWsIcUbvZR6pT1dNB zassfcr8ndoktoShl9br36nZNd v9S1oZS8U4JjhoL4MFCzgWXe HywxqXAAuB8paejzr0zdanbkSo BqMZYsKFk8SPg2USPhgZytNpRb KP91HQA6CTMetvRpQ3AeXFMv tCmjImC6u4K1Yf0VO3KBFvjyV3 VNTUFSWTwvdGQ+UF68rp62C6Lk GmokEri7XNJcYTU3lGP1rP7x FYPuKCcdb8J1zHN4Q4CthvUpxa 6dn2opANWeGTwbN63reVHca0V2 LNYxdUB7LARsvXmyUkXtrR29 Oyc+PTWfmSfwf4LjCphzj6qxj1 ugcUy9EdmjCHJotkFffEeaYNV2 k4MsCh7yZSLtaXF6yQU7bV8a OmPsCdH4XPndD167ZiIdkGReOd ndV65eV7LniCZ+CTDsTtr4KRCw rRjoRR8rA4HjKCYlvxdvsEYc fUcmFK1mACUowkbgJZSpnQ7wMI DpT8y8KaEaRdE7LLqqR6PiSZSt sznbZk35fO4hLbCdUbM6XDar A1MaajS5KOAchNHmLJmtESN2E2 6xi6R7QKEaFBDoRAB0bSR6oX4e bGlnbjogbGVmdDsgdmVydGlj ENlbCXexL365TIQyrGgfYuNlLI luZyBEYXRlOiAgMDgvMjUvMjAy NTwvdGQ+YTQnQVQ2hBxuALCb oCSqWPkaPn0moWrvrXqaKU7dZX ZlzhcrVQGnwY6sHCTkoLQfqXju QE7qNLIwqetzf862IsUoKRH7 DCFfvAUoM7EilH7yKdRnMGKhJO KiW8GdoDKcPEfgC426RWfjUlS1 OLTyljNvF0BtPJZhiAbtSpP3 g6A7Mr5Hk7AadlrvM5YyqAGxCj JoLupwPZs4E7ZgDrgoyJO+PC90 AIQvXY29NUv4QWS8aZizYHpv VNNaX8JgmS8wBcIvNGLuUKRgEk c+PHRhYmxlIHdpZHRoPScxMDAl OwTjeYxhME9kVz5zHVDtJVTs uKhriXWxQkHxy5zpURDyAVubRV 9vpAbrV3OhcKL9NFSvx7z2Bp48 V63bN9SkcVO+XEJdaIL1gCM8 gQ7pAfJwRlM9PLgrD407NcBfiA FwRhngx0rhc6bjyCp6RzE4BMBv drRpmVmtTVX3z7ChJz37V83m IHdpZHRoPSIxNSUiIHZhbGlnbj 0gaS4gAp8+ICDslWG8tFR0cY4t QsPjQpT0INjlF467RqYqpKTh Nxngq9rzy9waqLn0QkZkCWFsha HuhIitFVU5c1JeSd16T5PqzRkl m7XcVpm5qp76yLKdl9G3oQZ8 C5DhQGKafqqnyWDevIjbKI2oXQ ZcqcsuRTWerW8lCWUnC0c2LqNa RcN0YMmdP2AcbsP0SLNmcYUl IAWuxIWPoX4ahntro0wfpxlkLj XmUMWrDQy2ASs7NIMtpNmoJvWa MNV7DsZ2QCN5eKOhuA5usEpr dmggjH6iRvn+AKK4aGMusJJNLC 1lOjwvdGQ+ABDpQHX7lRycUCev KSZbyX7nJANhJ9w5VmLbHtY0 BJnaC5HnboQ6CDMnrWMfAWGceA VMdX9plfmxr8spxoamLoKiVOVt ABc9DDt2KTWdgFquVwImHUM3 ZwM4APQ6hGBngP1coXljnqiwfT 9wOyc+ZqueqLhsDIP8LNb3T7Px Xoc1SNVfuAsgII4moPZmOPid Nw9geNsgqWokMO2lUDKayunnu6 70AnUoz1vdUVHjvMEbSFpkHRK0 F42yp2J1RCBzHKOsPMN7lJU2 iR1oaIuxlotppPXrbCmdvzUkpD kzAGudCAoqQ633QEBuwNnxLoXi TZs3W5TwUfz6VULgyJzsAF8z xPDpDKhpFa6wfEdffRdmRV2oZC Ehnhcay417UiKum9ffTIBjsLAh NVdcCUZ8I38nf4O6SUTbIVTb TOS4dTX0jR1gcXtwrehxtPScnZ kknlYwgOgxBZnvNZldE032OSUo zJrsYkFkhFg5V1EcWij3XZNx sYmdRY8iqMFsSKxkIb5iqOyqiH reUA5fDVHomvkow743CjKlc7ys GYNhoWAzLEkkUUJ1C93yq1V8 YCHgBYAnKPR7tIJ2kH5ywAntmd ogbGVmdDsgdmVydGljYWwtYWxp G037ZJBsvZyxUmMrhJqjqgRt ARktZQc9F2WaVzdnzQD+PC90YW JiFM84cJCitSIev5lhjHz0BrAl MXSjIVR9uDyyYEaxm7BcVAWo A88fwXVbv7W9OAPrxGdppCNiQb EnrHW1qW4kPRzlveaku2beanhy Srggz0fppj53dQ57N37xZEdo WGUjCIAtSYUlZNDmtSvemm9jyC 9wIi8+RFTiiMV4qUX6bR7uFIOo KiW2QVtzO945MmKroBQoOnto e8jwc4pjkUx1IpX1JQSyioNeyY ktNOY6v3PlKr23T98qAAikJEKo HLMnDLMfXVLahPeigl5ffW7b Ii8+YRSvtXO2iVR1sY8qErAlDh F1GZdqQ332UxDzoIFbMtbtA58c Q4IbxCT+SPEdNft1UATtvQfe HT3fnWRxKKazRl6kJGA1YeMvYy PdWNdyO8IbIAAhixjaynbllJN8 HJVwQTMsxW62Lv1csDosYHTu oVYDtD6atuukh5cnlpazRdXaHK CiSYc2TTw4VMIjpTpqNbXoSXU2 WzS6EQM7aDQbxG1lbQkrxaql bD9vH1MpHJHnzidiUk83iV0cIv SlCnE6MZbaLav+F0aYIOfYRJXR SUNIQUVMIFJBWTwvdGQ+PHRk NPZ9rQwrYJzcLQHrpL3kTUWrK0 e9LvCiStG0BYknT6NrIVXwibav Ko42oE0kUgFvFkW5KJkkS2Xt nxC0EHYxrBWkZVydVRF5O91st9 F7XMQmJCGsRZN2pHT1mN4xcFrl bjogbGVmdDsgdmVydGljYWwt HInnH493ZPIuuXkfQwD1VwJwKl S9WSm1U8SpIat5EZUkbDmmTS5f dQTdAZojUs8yoUjkhDdfSH3i QCZfwqwcMGHlpK9cGCHklLQjaD idAK9bYWWenmqkw503LmUwAHX9 SSEsvAZrX2NvuR2sRaMcOZIl SLGyO3HfpCHqGDcjT520IYtuFr Y3BYJwjnBfY3YoUEWaiZmhTqI1 g5V4Dp32HeZHNWCbdpkfuNA+ LUDjLFO2kOftLDiuSPFzuI1mNV LyF4m9AbNyJeF6SFmyE8DsJNDg cepmTt54hF4vIaPbXzE5MKze A1IogiK8HUFnwHOwCWjsCEI1I6 5yr3Q6NVKbDHIfHKS6qOM6pR1x bGlnbjogbGVmdDsgdmVydGlj HYveAWqfT479YLFtlUibTs0TUA R5S7NvWil0SNMrwFkrCC1nqYTv KDztFr1ivUrljBagEN3wFKZk zhwwLMZjkX0mROUboFCsaRduVU 9sWNPofzrro363GpLyMYQ9RXOk oFGoK8GloT4lNjZwVRYjGQAo X1QwnKVqMSlqR349HIyrOhF8JK QqyxKcN6KpSSCmoDpnOnA3f3Y7 Af4BOCpjF4JdW2JfxTibkYB+ NY65wr09N2WzGsdmXbg6AKMuTC F8bBQ0pU5lPNIgIZwao4Z0zFZ9 O9FqsxAknj6wb2rjZHWzPTrr R64ifNGhy0S9AEEhnFK5LTSymK phZiHddO24Wvo+OTFldMbww7Ar Nrewu0cwe9ifvTu8AuQeKCMu kmSswFkjAXM6f3JrXr60R58pCM nxUEZmKTAbAUIdULSpqGkfke4h zA6rAi3+ORQveFA9nRI0jT7b DvTuAaU8QMhhL702FvDceJKbPx sva9nzr9cjjFp6PfVvQUOcoaJo rKvnSOL2o4LsJi76J2YvtVsj u4UkSdd9kc27jMIst0L0zRL5L0 OqQNBckaumdZIvkHwlDD1nHBOv gpdcCJOlpU7cQQQuT4c4LkEo JsH2FOsnH3YyxxW6JBVyyZRyHV DdbDOIxT9hjwjuw5boraqrDxKf XVCiWVy2FMc2EFPbnLcoEwNj SZO0PjQ8UQN5kDUcqD3tsMoygl wlzI2lQmp+EIr8w7qzkZAtGE5o vWK9RA48JF68bOOfr6Y7eCK1 K1EmCVZsnizvsrrkoZN2KFPiHG ComI49Ud0jaVlrUo7sPJEkTDF1 KCFoeEWyZ1RkqI4rXbWlTSZq ZZYbA5BjyVRnGXhhN802FFhfJi N9FDFtmdErL2RiPRYjaLhvWwP4 f8K5Cd2GEM56HC50SF64xRWr r8G8wCM8A5CrHPPjrgfuwkjrtX L8DJOpNNNklK34Vg2tiQsxJw9h MDKeKRX2RIYqyYNcG0OjzE6p DwQcNVLmMWKfA3IrgQDfCPcaF5 50HJjrRzL5QYOnaiFrK2ZkRTOt vEmwGzR3p6M2Bc4DYm15OM47 KO59oKMzc1R2sIN9E3ZaEQWujf ibvykbtHQ1TYJqGYFkjA73Rt6j cGtuXc0dARCuLNN5YDRfrAXh V7XbcQ9kIuSdDSZiUAUuE5BqtZ VeNEmcM123NUugNkB8VOPktlIi J0VkAPUjaGgaNtB6z2A2Ky7M WMtdjbh2M9BrPrwzuWW+PC90YW StMH65gPEryNWwp9dybGr8QjYt KFFrZPY3vXouNWzqm7RkYBGy Y29 (more content not included)... Normal [facility] Basic Metabolic Panelon 02-07 Creatinine Clr Calc Pharmacy 99.69 Normal [facility] Comment on above: Result Comment: PERF ORMED BY: [place] [address] PATHOLOGIST AMMONIA DISTILLER ASTRID HELLER M.D. Performed By: #### H S TROP #### [address] GFR/1.73 sq M.predicted MDRD (S/P/Bld) [Vol rate/Area] mL/min/{1.73_m2} Normal [facility] Comment on above: Performed By: #### H S TROP #### [address] Basophils [#/volume] in Bloo d by Automated countOrdered By: Orlando Walton on 03-01-2025 Basophils (Bld) [#/Vol] 0.1 10*3/uL Normal 0.0-0.2 [facility] Comment on above: Result Comment: PERF ORMED BY: [place] [address] PATHOLOGIST AMMONIA DISTILLER ASTRID HELLER M.D. Performed By: #### H S TROP #### [address] Basophils/100 leukocytes in Blood by Automated countOrdered By: Orlando Walton on 03-01-2025 Basophils/100 WBC (Bld) 0.8 % Normal . [facility] Comment on above: Performed By: #### H S TROP #### [address] Blood Cultureon 03-01-2025 Bacteria identified Cx Nom (Bld) NO GROWTH 5 DAYS PERFORMED BY: [place] [address] PATHOLOGIST AMMONIA DISTILLER ASTRID HELLER M.D. Normal [facility] Comment on above: Performed By: #### H S TROP #### [address] Bacteria identified Cx Nom (Bld) NO GROWTH 5 DAYS PERFORMED BY: [place] [address] PATHOLOGIST AMMONIA DISTILLER ASTRID HELLER M.D. Normal [facility] Comment on above: Performed By: #### H S TROP #### [place] [address] [place] Calcium [Mass/volume] in Ser um or PlasmaOrdered By: Orlando Walton on 03-01-2025 Calcium [Mass/Vol] 8.9 mg/dL Normal 8.6-10.3 [facility] Comment on above: Performed By: #### H S TROP #### [address] Carbon dioxide, total [Moles /volume] in Serum or PlasmaOrdered By: Orlando Walton on 03-01-2025 CO2 [Moles/Vol] 25.0 mmol/L Normal 21.0-31.0 [facility] Comment on above: Performed By: #### H S TROP #### [place] [address] [place] Chloride [Moles/volume] in S kristian or PlasmaOrdered By: Orlando Walton on 03-01-2025 Chloride [Moles/Vol] 107 mmol/L Normal 98-107 [facility] Comment on above: Performed By: #### H S TROP #### [address] Complete Blood Count Auto Di ffon 08-24-2025 Mean Corpuscular HGB Conc 34.8 g/dL Normal 32.5-35.6 [facility] Comment on above: Performed By: #### H S TROP #### [address] NRBC% 0.1 /100{WBC} Normal 0-0.5 [facility] Comment on above: Performed By: #### H S TROP #### [address] White Blood Count 9.4 [CFU]/mL Normal 4.1-10.5 [facility] Comment on above: Performed By: #### H S TROP #### [address] Creatinine [Mass/volume] in Serum or PlasmaOrdered By: Orlando Walton on 03-01-2025 Creatinine [Mass/Vol] 0.59 mg/dL Low 0.70-1.30 [facility] Comment on above: Performed By: #### H S TROP #### [address] ECG 12 lead ECGon 03-01-2025 ECG 12 lead ECG [facility] Main [place] [address] [place] [address] Electrocardiograph Report Signed Patient: Dyan Harrell MR#: [id number] : 1960 Acct:[id number] Age/Sex: 64 / M ADM Date: 02/26/25 Loc: Room: [address] [place] [address] Type: ADM IN Attending Dr: Dyan Sharp DO Ordering Provider: Stephon Carrington MD Date of Service: 03/01/25 ECG/ECG 12 lead ECG: mi Copies to: Test Reason : Blood Pressure : */* mmHG Vent. Rate : 87 BPM Atrial Rate : 87 BPM P-R Int : 140 ms QRS Dur : 94 ms QT Int : 376 ms P-R-T Axes : 37 54 51 degrees QTcB Int : 452 ms Normal sinus rhythm Normal ECG When compared with ECG of 26-Feb-2025 16:15, ST no longer depressed in Inferior leads ST no longer depressed in Lateral leads Confirmed by STEPHON CARRINGTON MD ([id number]) on 03/01/2025 9:51:48 AM Referred By: Electronically Signed By: STEPHON CARRINGTON MD Transcribed By: MUS Signed By Stephon Carrington MD 0 03/01/25 0951 Normal [facility] Eosinophils [#/volume] in Bl ood by Automated countOrdered By: Orlando Walton on 03-01-2025 Eosinophils (Bld) [#/Vol] 0.3 10*3/uL Normal 0.0-0.45 [facility] Comment on above: Performed By: #### H S TROP #### [address] Eosinophils/100 leukocytes i n Blood by Automated countOrdered By: Orlando Walton on 03-01-2025 Eosinophils/100 WBC (Bld) 3.4 % Normal . [facility] Comment on above: Performed By: #### H S TROP #### [address] Erythrocyte distribution wid th [Ratio] by Automated countOrdered By: Orlando Walton on 03-01-2025 Erythrocyte distribution width (RBC) [Ratio] 13.9 % Normal 12.0-14.8 [facility] Comment on above: Performed By: #### H S TROP #### [address] Erythrocytes [#/volume] in B lood by Automated countOrdered By: Orlando Walton on 03-01-2025 RBC (Bld) [#/Vol] 3.89 10*6/uL Low 3.90-5.60 [facility] Comment on above: Performed By: #### H S TROP #### [address] Glomerular filtration rate [ Volume Rate/Area] in Serum, Plasma or Blood by CreatinineOrdered By: Orlando Walton on 03-01-2025 Glomerular filtration rate [Volume Rate/Area] in Serum, Plasma or Blood by Creatinine > 60.0 mL/Min [facility] Glucose [Mass/volume] in Ser um or PlasmaOrdered By: Orlando Walton on 03-01-2025 Glucose [Mass/Vol] 152 mg/dL High 70-100 [facility] Comment on above: ADA recommended refe rence rangeRandom Glucose Reference Range is dependent on time and content of last meal. Glucose of more than 200 mg/dL in a nonstressed, ambulatory subject supports the diagnosis of Diabetes Mellitus. Result Comment: [place] om Glucose Reference Range is dependent on time and content of last meal. Glucose of more than 200 mg/dL in a nonstressed, ambulatory subject supports the diagnosis of Diabetes Mellitus. ADA recommended reference range Performed By: #### H S TROP #### [address] Hematocrit [Volume Fraction] of Blood by Automated countOrdered By: Orlando Walton on 03-01-2025 Hematocrit (Bld) [Volume fraction] 32.4 % Low 38.8-50.0 [facility] Comment on above: Performed By: #### H S TROP #### [address] Hemoglobin [Mass/volume] in BloodOrdered By: Orlando Walton on 03-01-2025 Hemoglobin (Bld) [Mass/Vol] 11.3 g/dL Low 13.0-17.0 [facility] Comment on above: Performed By: #### H S TROP #### [facility] [address] [place] [address] Leukocytes [#/volume] correc rosetta for nucleated erythrocytes in Blood by Automated counOrdered By: Orlando Walton on 03-01-2025 WBC corrected for nucl RBC Auto (Bld) [#/Vol] 9.4 10*3/uL 4.1-10.5 [facility] Leukocytes [#/volume] in Blo od by Automated countOrdered By: Orlando Walton on 03-01-2025 WBC (Bld) [#/Vol] 9.4 10*3/uL Normal 4.1-10.5 [facility] Comment on above: Performed By: #### H S TROP #### [address] Lymphocytes [#/volume] in Bl ood by Automated countOrdered By: Orlando Walton on 03-01-2025 Lymphocytes (Bld) [#/Vol] 2.1 10*3/uL Normal 1.00-4.8 [facility] Comment on above: Performed By: #### H S TROP #### [address] Lymphocytes/100 leukocytes i n Blood by Automated countOrdered By: Orlando Walton on 03-01-2025 Lymphocytes/100 WBC (Bld) 22.3 % Normal . [facility] Comment on above: Performed By: #### H S TROP #### [address] MCH [Entitic mass] by Automa rosetta countOrdered By: Orlando Walton on 03-01-2025 MCH (RBC) [Entitic mass] 29.0 pg Normal 27.5-35.2 [facility] Comment on above: Performed By: #### H S TROP #### [address] MCHC Auto (RBC) [Mass/Vol]Or dered By: Orlando Walton on 03-01-2025 MCHC (RBC) [Mass/Vol] 34.8 g/dL 32.5-35.6 [facility] MCV [Entitic volume] by Auto mated countOrdered By: Orlando Walton on 03-01-2025 MCV (RBC) [Entitic vol] 83.2 fL Low 83.5-101 [facility] Comment on above: Performed By: #### H S TROP #### [address] Monocytes [#/volume] in Bloo d by Automated countOrdered By: Orlando Walton on 03-01-2025 Monocytes (Bld) [#/Vol] 0.8 10*3/uL Normal 0.0-0.8 [facility] Comment on above: Performed By: #### H S TROP #### [place] [address] [place] Monocytes/100 leukocytes in Blood by Automated countOrdered By: Orlando Walton on 03-01-2025 Monocytes/100 WBC (Bld) 9.0 % Normal . [facility] Comment on above: Performed By: #### H S TROP #### [address] Neutrophils [#/volume] in Bl ood by Automated countOrdered By: Orlando Walton on 03-01-2025 Neutrophils (Bld) [#/Vol] 6.0 10*3/uL Normal 1.8-7.7 [facility] Comment on above: Performed By: #### H S TROP #### [address] Neutrophils/100 leukocytes i n Blood by Automated countOrdered By: Orlando Walton on 03-01-2025 Neutrophils/100 WBC (Bld) 64.5 % Normal . [facility] Comment on above: Performed By: #### H S TROP #### [address] No Panel InformationOrdered By: Orlando Walton on 03-01-2025 Pharmacy Creatinine Clearance (Chem 99.69 [facility] Nucleated erythrocytes [Pres ence] in Blood by Automated countOrdered By: Orlando Walton on 03-01-2025 Nucleated RBC Auto Ql (Bld) 0.1 /100{WBC} 0-0.5 [facility] Platelet mean volume [Entiti c volume] in Blood by Automated countOrdered By: Orlando Walton on 03-01-2025 Platelet mean volume (Bld) [Entitic vol] 7.2 fL Normal 6.6-10.1 [facility] Comment on above: Performed By: #### H S TROP #### [place] [address] [place] Platelets [#/volume] in Bloo d by Automated countOrdered By: Orlando Walton on 03-01-2025 Platelets (Bld) [#/Vol] 450 10*3/uL Normal 150-450 [facility] Comment on above: Performed By: #### H S TROP #### [address] Potassium [Moles/volume] in Serum or PlasmaOrdered By: Orlando Walton on 03-01-2025 Potassium [Moles/Vol] 3.9 mmol/L Normal 3.5-5.1 [facility] Comment on above: Performed By: #### H S TROP #### [address] Serum or plasma anion gap de terminationOrdered By: Orlando Walton on 03-01-2025 Anion gap [Moles/Vol] 8.9 mmol/L Normal 6.0-15.0 [facility] Comment on above: Performed By: #### H S TROP #### [address] Sodium [Moles/volume] in Ser um or PlasmaOrdered By: Orlando Walton on 03-01-2025 Sodium [Moles/Vol] 137 mmol/L Normal 136-145 [facility] Comment on above: Performed By: #### H S TROP #### [address] Urea nitrogen [Mass/volume] in Serum or PlasmaOrdered By: Orlando Walton on 03-01-2025 Urea nitrogen [Mass/Vol] 10 mg/dL Normal 7-25 [facility] Comment on above: Performed By: #### H S TROP #### [address] Basic Metabolic Panelon 02-07 Anion gap [Moles/Vol] 10.3 mmol/L Normal 6.0-15.0 [facility] Comment on above: Performed By: #### C UBLD, LACTIC, BNP, CK, HS TROP, PTT, PT, MG, CMP, CBC #### [address] Calcium [Mass/Vol] 8.7 mg/dL Normal 8.6-10.3 [facility] Comment on above: Performed By: #### C UBLD, LACTIC, BNP, CK, HS TROP, PTT, PT, MG, CMP, CBC #### [address] Chloride [Moles/Vol] 105 mmol/L Normal 98-107 [facility] Comment on above: Performed By: #### C UBLD, LACTIC, BNP, CK, HS TROP, PTT, PT, MG, CMP, CBC #### [address] CO2 [Moles/Vol] 23.5 mmol/L Normal 21.0-31.0 [facility] Comment on above: Performed By: #### C UBLD, LACTIC, BNP, CK, HS TROP, PTT, PT, MG, CMP, CBC #### [address] Creatinine [Mass/Vol] 0.64 mg/dL Low 0.70-1.30 [facility] Comment on above: Performed By: #### C UBLD, LACTIC, BNP, CK, HS TROP, PTT, PT, MG, CMP, CBC #### [address] Creatinine Clr Calc Pharmacy 99.69 Normal [facility] Comment on above: Result Comment: PERF ORMED BY: [place] [address] PATHOLOGIST AMMONIA DISTILLER ASTRID HELLER M.D. Performed By: #### C UBLD, LACTIC, BNP, CK, HS TROP, PTT, PT, MG, CMP, CBC #### [address] GFR/1.73 sq M.predicted MDRD (S/P/Bld) [Vol rate/Area] mL/min/{1.73_m2} Normal [facility] Comment on above: Performed By: #### C UBLD, LACTIC, BNP, CK, HS TROP, PTT, PT, MG, CMP, CBC #### [address] Glucose [Mass/Vol] 145 mg/dL High 70-100 [facility] Comment on above: Result Comment: [facility] Glucose Reference Range is dependent on time and content of last meal. Glucose of more than 200 mg/dL in a nonstressed, ambulatory subject supports the diagnosis of Diabetes Mellitus. ADA recommended reference range Performed By: #### C UBLD, LACTIC, BNP, CK, HS TROP, PTT, PT, MG, CMP, CBC #### [address] Potassium [Moles/Vol] 3.8 mmol/L Normal 3.5-5.1 [facility] Comment on above: Performed By: #### C UBLD, LACTIC, BNP, CK, HS TROP, PTT, PT, MG, CMP, CBC #### [address] Sodium [Moles/Vol] 135 mmol/L Low 136-145 [facility] Comment on above: Performed By: #### C UBLD, LACTIC, BNP, CK, HS TROP, PTT, PT, MG, CMP, CBC #### [address] Urea nitrogen [Mass/Vol] 12 mg/dL Normal 7-25 [facility] Comment on above: Performed By: #### C UBLD, LACTIC, BNP, CK, HS TROP, PTT, PT, MG, CMP, CBC #### [address] Complete Blood Count Auto Di ffon 02-28-2025 Basophils (Bld) [#/Vol] 0.1 10*3/uL Normal 0.0-0.2 [facility] Comment on above: Result Comment: PERF ORMED BY: [place] [address] PATHOLOGIST AMMONIA DISTILLER ASTRID HELLER M.D. Performed By: #### C UBLD, LACTIC, BNP, CK, HS TROP, PTT, PT, MG, CMP, CBC #### [address] Basophils/100 WBC (Bld) 1.0 % Normal . [facility] Comment on above: Performed By: #### C UBLD, LACTIC, BNP, CK, HS TROP, PTT, PT, MG, CMP, CBC #### [address] Eosinophils (Bld) [#/Vol] 0.3 10*3/uL Normal 0.0-0.45 [facility] Comment on above: Performed By: #### C UBLD, LACTIC, BNP, CK, HS TROP, PTT, PT, MG, CMP, CBC #### [address] Eosinophils/100 WBC (Bld) 3.1 % Normal . [facility] Comment on above: Performed By: #### C UBLD, LACTIC, BNP, CK, HS TROP, PTT, PT, MG, CMP, CBC #### [address] Erythrocyte distribution width (RBC) [Ratio] 14.0 % Normal 12.0-14.8 [facility] Comment on above: Performed By: #### C UBLD, LACTIC, BNP, CK, HS TROP, PTT, PT, MG, CMP, CBC #### [address] Hematocrit (Bld) [Volume fraction] 33.5 % Low 38.8-50.0 [facility] Comment on above: Performed By: #### C UBLD, LACTIC, BNP, CK, HS TROP, PTT, PT, MG, CMP, CBC #### [address] Hemoglobin (Bld) [Mass/Vol] 11.6 g/dL Low 13.0-17.0 [facility] Comment on above: Performed By: #### C UBLD, LACTIC, BNP, CK, HS TROP, PTT, PT, MG, CMP, CBC #### [address] Lymphocytes (Bld) [#/Vol] 1.2 10*3/uL Normal 1.00-4.8 [facility] Comment on above: Performed By: #### C UBLD, LACTIC, BNP, CK, HS TROP, PTT, PT, MG, CMP, CBC #### [address] Lymphocytes/100 WBC (Bld) 11.7 % Normal . [facility] Comment on above: Performed By: #### C UBLD, LACTIC, BNP, CK, HS TROP, PTT, PT, MG, CMP, CBC #### [address] MCH (RBC) [Entitic mass] 28.9 pg Normal 27.5-35.2 [facility] Comment on above: Performed By: #### C UBLD, LACTIC, BNP, CK, HS TROP, PTT, PT, MG, CMP, CBC #### [address] MCV (RBC) [Entitic vol] 83.6 fL Normal 83.5-101 [facility] Comment on above: Performed By: #### C UBLD, LACTIC, BNP, CK, HS TROP, PTT, PT, MG, CMP, CBC #### [address] Mean Corpuscular HGB Conc 34.6 g/dL Normal 32.5-35.6 [facility] Comment on above: Performed By: #### C UBLD, LACTIC, BNP, CK, HS TROP, PTT, PT, MG, CMP, CBC #### [address] Monocytes (Bld) [#/Vol] 0.7 10*3/uL Normal 0.0-0.8 [facility] Comment on above: Performed By: #### C UBLD, LACTIC, BNP, CK, HS TROP, PTT, PT, MG, CMP, CBC #### [address] Monocytes/100 WBC (Bld) 6.7 % Normal . [facility] Comment on above: Performed By: #### C UBLD, LACTIC, BNP, CK, HS TROP, PTT, PT, MG, CMP, CBC #### [address] Neutrophils (Bld) [#/Vol] 7.9 10*3/uL High 1.8-7.7 [facility] Comment on above: Performed By: #### C UBLD, LACTIC, BNP, CK, HS TROP, PTT, PT, MG, CMP, CBC #### [address] Neutrophils/100 WBC (Bld) 77.5 % Normal . [facility] Comment on above: Performed By: #### C UBLD, LACTIC, BNP, CK, HS TROP, PTT, PT, MG, CMP, CBC #### [address] NRBC% 0.0 /100{WBC} Normal 0-0.5 [facility] Comment on above: Performed By: #### C UBLD, LACTIC, BNP, CK, HS TROP, PTT, PT, MG, CMP, CBC #### [address] Platelet mean volume (Bld) [Entitic vol] 7.4 fL Normal 6.6-10.1 [facility] Comment on above: Performed By: #### C UBLD, LACTIC, BNP, CK, HS TROP, PTT, PT, MG, CMP, CBC #### [address] Platelets (Bld) [#/Vol] 399 10*3/uL Normal 150-450 [facility] Comment on above: Performed By: #### C UBLD, LACTIC, BNP, CK, HS TROP, PTT, PT, MG, CMP, CBC #### [address] RBC (Bld) [#/Vol] 4.01 10*6/uL Normal 3.90-5.60 [facility] Comment on above: Performed By: #### C UBLD, LACTIC, BNP, CK, HS TROP, PTT, PT, MG, CMP, CBC #### [address] WBC (Bld) [#/Vol] 10.2 10*3/uL Normal 4.1-10.5 [facility] Comment on above: Performed By: #### C UBLD, LACTIC, BNP, CK, HS TROP, PTT, PT, MG, CMP, CBC #### [address] White Blood Count 10.2 [CFU]/mL Normal 4.1-10.5 [facility] Comment on above: Performed By: #### C UBLD, LACTIC, BNP, CK, HS TROP, PTT, PT, MG, CMP, CBC #### [address] Basic Metabolic Panelon 02-07 Anion gap [Moles/Vol] 9.8 mmol/L Normal 6.0-15.0 [facility] Comment on above: Performed By: #### C UU #### [address] Calcium [Mass/Vol] 9.0 mg/dL Normal 8.6-10.3 [facility] Comment on above: Performed By: #### C UU #### [address] Chloride [Moles/Vol] 105 mmol/L Normal 98-107 [facility] Comment on above: Performed By: #### C UU #### [address] CO2 [Moles/Vol] 26.3 mmol/L Normal 21.0-31.0 [facility] Comment on above: Performed By: #### C UU #### [address] Creatinine [Mass/Vol] 0.98 mg/dL Normal 0.70-1.30 [facility] Comment on above: Performed By: #### C UU #### [address] Creatinine Clr Calc Pharmacy 81.38 Normal [facility] Comment on above: Result Comment: PERF ORMED BY: [place] [address] PATHOLOGIST AMMONIA DISTILLER ASTRID HELLER M.D. Performed By: #### C UU #### [place] [address] [place] GFR/1.73 sq M.predicted MDRD (S/P/Bld) [Vol rate/Area] mL/min/{1.73_m2} Normal [facility] Comment on above: Performed By: #### C UU #### [address] Glucose [Mass/Vol] 157 mg/dL High 70-100 [facility] Comment on above: Result Comment: [facility] Glucose Reference Range is dependent on time and content of last meal. Glucose of more than 200 mg/dL in a nonstressed, ambulatory subject supports the diagnosis of Diabetes Mellitus. ADA recommended reference range Performed By: #### C UU #### [address] Potassium [Moles/Vol] 4.1 mmol/L Normal 3.5-5.1 [facility] Comment on above: Performed By: #### C UU #### [address] Sodium [Moles/Vol] 137 mmol/L Normal 136-145 [facility] Comment on above: Performed By: #### C UU #### [address] Urea nitrogen [Mass/Vol] 13 mg/dL Normal 7-25 [facility] Comment on above: Performed By: #### C UU #### [address] Complete Blood Count Auto Di ffon 02-27-2025 Basophils (Bld) [#/Vol] 0.1 10*3/uL Normal 0.0-0.2 [facility] Comment on above: Result Comment: PERF ORMED BY: [place] [address] PATHOLOGIST AMMONIA DISTILLER ASTRID HELLER M.D. Performed By: #### C UU #### [place] [address] [place] Basophils/100 WBC (Bld) 0.8 % Normal . [facility] Comment on above: Performed By: #### C UU #### [address] Eosinophils (Bld) [#/Vol] 0.0 10*3/uL Normal 0.0-0.45 [facility] Comment on above: Performed By: #### C UU #### [address] Eosinophils/100 WBC (Bld) 0.2 % Normal . [facility] Comment on above: Performed By: #### C UU #### [address] Erythrocyte distribution width (RBC) [Ratio] 13.7 % Normal 12.0-14.8 [facility] Comment on above: Performed By: #### C UU #### [address] Hematocrit (Bld) [Volume fraction] 35.4 % Low 38.8-50.0 [facility] Comment on above: Performed By: #### C UU #### [address] Hemoglobin (Bld) [Mass/Vol] 11.9 g/dL Low 13.0-17.0 [facility] Comment on above: Performed By: #### C UU #### [place] [address] [place] Lymphocytes (Bld) [#/Vol] 1.4 10*3/uL Normal 1.00-4.8 [facility] Comment on above: Performed By: #### C UU #### [address] Lymphocytes/100 WBC (Bld) 9.2 % Normal . [facility] Comment on above: Performed By: #### C UU #### [address] MCH (RBC) [Entitic mass] 28.4 pg Normal 27.5-35.2 [facility] Comment on above: Performed By: #### C UU #### [address] MCV (RBC) [Entitic vol] 84.5 fL Normal 83.5-101 [facility] Comment on above: Performed By: #### C UU #### [address] Mean Corpuscular HGB Conc 33.6 g/dL Normal 32.5-35.6 [facility] Comment on above: Performed By: #### C UU #### [address] Monocytes (Bld) [#/Vol] 1.0 10*3/uL High 0.0-0.8 [facility] Comment on above: Performed By: #### C UU #### [address] Monocytes/100 WBC (Bld) 6.5 % Normal . [facility] Comment on above: Performed By: #### C UU #### [address] Neutrophils (Bld) [#/Vol] 12.7 10*3/uL High 1.8-7.7 [facility] Comment on above: Performed By: #### C UU #### [address] Neutrophils/100 WBC (Bld) 83.3 % Normal . [facility] Comment on above: Performed By: #### C UU #### [address] NRBC% 0.0 /100{WBC} Normal 0-0.5 [facility] Comment on above: Performed By: #### C UU #### [address] Platelet mean volume (Bld) [Entitic vol] 7.0 fL Normal 6.6-10.1 [facility] Comment on above: Performed By: #### C UU #### [address] Platelets (Bld) [#/Vol] 428 10*3/uL Normal 150-450 [facility] Comment on above: Performed By: #### C UU #### [address] RBC (Bld) [#/Vol] 4.19 10*6/uL Normal 3.90-5.60 [facility] Comment on above: Performed By: #### C UU #### [address] WBC (Bld) [#/Vol] 15.2 10*3/uL High 4.1-10.5 [facility] Comment on above: Performed By: #### C UU #### [address] White Blood Count 15.2 [CFU]/mL High 4.1-10.5 [facility] Comment on above: Performed By: #### C UU #### [address] ECH echo transthoracicon ECH echo transthoracic [facility] [place] [address] [place] [address] Echocardiogram Signed Patient: Dyan Harrell MR#: [id number] : 1960 Acct:[id number] Age/Sex: 64 / M ADM Date: 02/26/25 Loc: Room: [address] [place] [address] Type: ADM IN Attending Dr: Orlando Walton MD Ordering Provider: Orlando Walton MD Date of Service: 02/26/25 ECH/ECH echo transthoracic: troponin elevation Copies to: MD Orlando Machuca MD RDCS, RVT BSA: 2.1 m2 BP: 95/62 mmHg HR: 94 Reason For Study: troponin elevation History: DM Arina Trops UTI Interpretation Summary Ejection Fraction = 60-65%. Moderate concentric left ventricular hypertrophy. A variety of Doppler measurements indicate impaired left ventricular relaxation, which is associated with grade I/IV or mild diastolic dysfunction. There is no comparison study available. Procedure/Quality: A two-dimensional transthoracic echocardiogram with color flow, Doppler and injection of contrast agent Definity was performed. A two- dimensional transthoracic echocardiogram with color flow and Doppler was performed. The study was technically good in quality. Left Ventricle: The left ventricular size is normal. Moderate concentric left ventricular hypertrophy. Ejection Fraction = 60-65%. A variety of Doppler measurements indicate impaired left ventricular relaxation, which is associated with grade I/IV or mild diastolic dysfunction. The left ventricular wall motion is normal. Left Atrium: The left atrium appears normal in size. The atrial septum appears normal. Right Atrium: The right atrium appears normal in size. Right Ventricle: The right ventricular size, thickness and function are normal. Aortic Valve: The aortic valve is normal in structure and function. No aortic regurgitation is present. Mitral Valve: The mitral valve is normal in structure and function. There is no mitral regurgitation noted. Tricuspid Valve: The tricuspid valve is normal in structure and function. No tricuspid regurgitation. Pulmonic Valve: The pulmonic valve is normal in structure and function. Arteries: The aortic root is normal size. Pericardium/Pleura: No pericardial effusion seen. There is no pleural effusion. IVC/Hepatic Veins: The inferior vena cava is normal in size, with a normal collapsibility index. Measurements with Normals IVSd: 1.5 cm (0.7-1.1 cm)LVIDd: 4.2 cm (3.7-5.4 cm) LVPWd: 1.5 cm (0.7-1.1 cm)LVIDs: 2.9 cm (2.3-3.6 cm) LA dimension: 3.2 cm (2.3-4.0 cm)Ao root diam: 3.2 cm(2.0-3.6 cm) asc Aorta Diam: 3.2 cm(2.1-3.4cm) Doppler with Normals RVSP(TR): 12.1 mmHg (18-35mmHg) LV V1 max: 93.6 cm/sec (0.7-1.7m/s)MV E max alen: 67.3 cm/sec(0.8-1.3m/s) MV A max alen: 69.2 cm/sec(0.0-0.0m/s) MV E/A: 0.97 (<1.5) MMode/2D Measurements Calculations TAPSE: 1.8 cm FS: 31.0 % Ao root area: LVOT diam: 2.1 cm RV S Alen: EDV(Teich): 78.6 ml 8.0 cm2 LVOT area: 3.5 cm2 10.9 cm/sec ESV(Teich): 32.2 ml EF(Teich): 59.0 % __ LVLd ap4: 7.2 cm SV(MOD-sp4): 24.7 ml LAV(MOD-sp4): LA A2 area: 12.6 cm2 EDV(MOD-sp4): 33.8 ml 44.6 ml LAV(MOD-sp2): LA A4 area: 14.5 cm2 LVLs ap4: 5.8 cm 27.9 ml LA length (vol): ESV(MOD-sp4): 5.0 cm 19.9 ml LA vol: 31.0 ml EF(MOD-sp4): LA vol index: 55.4 % 15.0 ml/m2 __ RA Volume: 34.6 mlRA Volume Index: 16.7 ml/m2 Doppler Measurements Calculations MV dec time: MV V2 max: MV dec slope: Ao V2 max: 0.18 sec 83.2 cm/sec 124.0 cm/sec MV max P.0 cm/sec2 Ao max P.8 mmHg 6.2 mmHg MV V2 mean: Ao mean P.9 cm/sec 3.0 mmHg MV mean PG: Ao V2 mean: 1.0 mmHg 84.2 cm/sec MV V2 VTI: 22.5 cm Ao V2 VTI: 21.0 cm MVA(VTI): 2.5 cm2 NIELS(I,D): 2.7 cm2 NIELS(V,D): 2.6 cm2 __ LV V1 max PG: TV max PG: TR max alen: 3.5 mmHg 9.0 mmHg 151.0 cm/sec LV V1 mean PG: TR max P.1 mmHg 2.0 mmHg RAP systole: 3.0 mmHg LV V1 mean: 60.6 cm/sec LV V1 VTI: 16.3 cm Transcribed By: JOVITA Performed At: 02/27/25 0704 Signed By: Stephon Carrington MD 02/27/25 1800 Normal [facility] Provider Orderson 02-27-2025 Provider Orders [id number] Normal [facility] Troponin I High Sensitivityo n 02-27-2025 Troponin I High Sensitivity 523 Off scale high 0-20 [facility] Comment on above: Order Comment: draw at 0250 last trop drawn at 2350 q3hr Result Comment: Crit ical Result : Called to and read back by: JT WILLINGHAM at: 02/27/2025 04:01:21 by:[id number] The Troponin units of report have been changed to meet the Chest Pain Accreditation requirement, element EC5.M1l2. Troponin units are changed from pg/ml to ng/L. Also, the decimal is removed and results are in whole numbers. PERFORMED BY: [place] [address] PATHOLOGIST AMMONIA DISTILLER ASTRID HELLER M.D. Performed By: #### C UU #### [address] Troponin I High Sensitivity 693 Off scale high 0-20 [facility] Comment on above: Result Comment: Resu lts called at 0112 on 02/27/25 The Troponin units of report have been changed to meet the Chest Pain Accreditation requirement, element EC5.M1l2. Troponin units are changed from pg/ml to ng/L. Also, the decimal is removed and results are in whole numbers. PERFORMED BY: [place] [address] PATHOLOGIST AMMONIA DISTILLER ASTRID HELLER M.D. Performed By: #### H S TROP #### [address] Troponin I.cardiac [Mass/vol ume] in Serum or Plasma by Detection limit <= 0.01 ng/mLOrdered By: Orlando Walton on 02-27-2025 Troponin I.cardiac DL <= 0.01 ng/mL [Mass/Vol] 523 ng/L Critically high 0-20 [facility] Comment on above: Critical Result : Ca lled to and read back by: JT WILLINGHAM at: 02/27/2025 04:01:21 by:[id number] Troponin units of report have been changed to meet the Chest Pain Accreditation requirement, element EC5.M1l2. Troponin units are changed from pg/ml to ng/L. Also, the decimal is removed and results are in whole numbers. Alanine aminotransferase [En zymatic activity/volume] in Serum or PlasmaOrdered By: Melody Siddiqi on 02-26-2025 ALT [Catalytic activity/Vol] 20 U/L Normal 7-52 [facility] Comment on above: Performed By: #### C UBLD, LACTIC, BNP, CK, HS TROP, PTT, PT, MG, CMP, CBC #### [address] Albumin [Mass/volume] in Ser um or Plasma by Bromocresol green (BCG) dye binding methoOrdered By: Melody Siddiqi on 02-26-2025 Albumin BCG dye [Mass/Vol] 3.8 g/dL 3.5-5.7 [facility] Alkaline phosphatase [Enzyma tic activity/volume] in Serum or PlasmaOrdered By: Melody Siddiqi on 02-26-2025 ALP [Catalytic activity/Vol] 70 U/L Normal 34-104 [facility] Comment on above: Performed By: #### C UBLD, LACTIC, BNP, CK, HS TROP, PTT, PT, MG, CMP, CBC #### [address] Appearance of UrineOrdered B y: Melody Siddiqi on 02-26-2025 Appearance (U) Turbid Critically abnormal Clear [facility] Comment on above: Order Comment: Name Collection Type:: Clean-Voided Midstream Performed By: #### C UU #### [facility] [address] Aspartate aminotransferase [ Enzymatic activity/volume] in Serum or PlasmaOrdered By: Melody Kramerjay on 02-26-2025 AST [Catalytic activity/Vol] 15 U/L Normal 13-39 [facility] Comment on above: Performed By: #### C UBLD, LACTIC, BNP, CK, HS TROP, PTT, PT, MG, CMP, CBC #### [facility] [address] BNP ser/plasOrdered By: Justice bradleychanel Kramerjay on 02-26-2025 Natriuretic peptide B (Bld) [Mass/Vol] 31.0 pg/mL Normal 5-100 [facility] Comment on above: Result Comment: PERF ORMED BY: [place] [address] PATHOLOGIST AMMONIA DISTILLER ASTRID HELLER M.D. Performed By: #### C UBLD, LACTIC, BNP, CK, HS TROP, PTT, PT, MG, CMP, CBC #### [facility] [address] [place] [address] Bacteria [Presence] in Urine by AutomatedOrdered By: Melody Lugonorm on 02-26-2025 Bacteria Auto Ql (U) 4+ [HPF] High None Seen [facility] Basophils [#/volume] in Bloo d by Automated countOrdered By: Melody Siddiqi on 02-26-2025 Basophils (Bld) [#/Vol] 0.1 10*3/uL Normal 0.0-0.2 [facility] Comment on above: Result Comment: PERF ORMED BY: [place] [address] PATHOLOGIST AMMONIA DISTILLER ASTRID HELLER M.D. Performed By: #### C UBLD, LACTIC, BNP, CK, HS TROP, PTT, PT, MG, CMP, CBC #### [place] [address] [place] Basophils/100 leukocytes in Blood by Automated countOrdered By: Melody Siddiqi on 02-26-2025 Basophils/100 WBC (Bld) 0.7 % Normal . [facility] Comment on above: Performed By: #### C UBLD, LACTIC, BNP, CK, HS TROP, PTT, PT, MG, CMP, CBC #### [facility] [address] Bilirubin Test strip Ql (U)O rdered By: Melody Siddiqi on 02-26-2025 Bilirubin Ql (U) Negative Negative [facility] Bilirubin.total [Mass/volume ] in Serum or PlasmaOrdered By: Melody Siddiqi on 02-26-2025 Bilirubin [Mass/Vol] 0.8 mg/dL Normal 0.3-1.0 [facility] Comment on above: Performed By: #### C UBLD, LACTIC, BNP, CK, HS TROP, PTT, PT, MG, CMP, CBC #### [address] BioFire Not Detectedon 02-26 BioFire Not Detected Not detected Normal Not Detecte T siddhartha [facility] Comment on above: Result Comment: This is a duplicate RP2.1 COVID (PCR) result to be used for statistical tracking purpose only. PERFORMED BY: [place] [address] PATHOLOGIST AMMONIA DISTILLER ASTRID HELLER M.D. Performed By: #### C UBLD, LACTIC, BNP, CK, HS TROP, PTT, PT, MG, CMP, CBC #### [address] Blood Cultureon 02-26-2025 Bacteria identified Cx Nom (Bld) Critical value result called at 0338 on 02/27/25 [employer] BCID Panel results called at 0341 on 02/27/25 Gram stain results called at 0341 on 02/27/25 Gram Stain Gram Negative Bacilli ORGANISM: Escherichia coli (ESBL) (O:ESCCOLESBL) Aerobic GENNA Charge ([id number]) SUSCEPTIBILITY ORGANISM: O:ESCCOLESBL ANTIBIOTIC INTERPRETATION GENNA Amikacin S <16 Amoxacillin/K Clavulanate S <8 Ampicillin R >16 Ampicillin/Sulbactam I 1616/8 Aztreonam R 16 Cefazolin R >16 Cefepime R >16 Ceftazidime R 8 Ceftazidime/Avibactam S <4 Ceftolozane/Tazobactam S <2 Ceftriaxone R >32 Cefuroxime R >16 Ciprofloxacin S <0.25 Ertapenem S <0.5 Gentamicin S <2 Levofloxacin S <0.5 Meropenem S <1 Meropenem/Vaborbactam S <2 Tetracycline R >8 Tobramycin S <2 Trimethoprim/Sulfamethoxaz ole R >2 Critical value result called at 0338 on 02/27/25 [employer] BCID Panel results called at 0341 on 02/27/25 Gram stain results called at 0341 on 02/27/25 Staphylococcus aureus DNA [Presence] by MARC with non-probe detection in Positive blood culture Not detected Bacteroides fragilis DNA [Presence] by MARC with non-probe detection in Positive blood culture Not detected Roshni auris DNA [Presence] by MARC with non-probe detection in Positive blood culture Not detected Roshni albicans DNA [Presence] by MARC with non-probe detection in Positive blood culture Not detected Acinetobacter calcoaceticus-baumannii complex DNA [Presence] by MARC with non-probe detection in Positive blood culture Not detected Cryptococcus neoformans or gattii 9002 Not detected Cephalosporin resistance blaCTX-M gene [Presence] by Molecular method Detected Escherichia coli Detected Enterobacterales DNA [Presence] by MARC with non-probe detection in Positive blood culture Detected Enterobacter cloacae complex DNA [Presence] by MARC with non-probe detection in Positive blood culture Not detected Staphylococcus epidermidis DNA [Presence] by MARC with non-probe detection in Positive blood culture Not detected Enterococcus faecalis DNA [Presence] by MARC with non-probe detection in Positive blood culture Not detected Enterococcus faecium DNA [Presence] by MARC with non-probe detection in Positive blood culture Not detected Roshni glabrata DNA [Presence] by MARC with non-probe detection in Positive blood culture Not detected Haemophilus influenzae (reported as H flu) Not detected Carbapenem resistance blaIMP gene [Presence] by Molecular method Not detected Klebsiella aerogenes DNA [Presence] by MARC with non-probe detection in Positive blood culture Not detected Klebsiella pneumoniae+Klebsiella variicola+Klebsiella quasipneumoniae DNA [Presence] by MARC with non-probe detection in Positive blood culture Not detected Klebsiella oxytoca DNA [Presence] by MARC with non-probe detection in Positive blood culture Not detected Carbapenem resistance blaKPC gene [Presence] by Molecular method Not detected Roshni krusei DNA [Presence] by MARC with non-probe detection in Positive blood culture Not detected Listeria monocytogenes (reported as listeriosis) Not detected Staphylococcus lugdunensis DNA [Presence] by MARC with non-probe detection in Positive blood culture Not detected Methicillin resistance mecA+mecC genes+SCCmec+OrfX junction [Presence] by Molecular method Not Applicable Carbapenem resistance blaNDM gene [Presence] by Molecular method Not detected Neisseria meningitidis - reported as meningococcal disease Not detected Carbapenem resistance tracey OXA-48-like gene [Presence] by Molecular method Not detected Roshni parapsilosis DNA [Presence] by MARC with non-probe detection in Positive blood culture Not detected Streptococcus pneumoniae - reported at ISP Not detected Proteus sp DNA [Presence] by MARC with non-probe detection in Positive blood culture Not detected Pseudomonas aeruginosa DNA [Presence] by MARC with non-probe detection in Positive blood culture Not detected Salmonella sp DNA [Presence] by MARC with non-probe detection in Positive blood culture Not detected Serratia marcescens DNA [Presence] by MARC with non-probe detection in Positive blood culture Not detected Staphylococcus sp DNA [Presence] by MARC with non-probe detection in Positive blood culture Not detected Stenotrophomonas maltophilia DNA [Presence] by MARC with non-probe detection in Positive blood culture Not detected Group A (Streptococcus pyogenes) [id number] Not detected Group B Strep (Streptococcus agalactiae) Not detected Streptococcus sp DNA [Presence] by MARC with non-probe detection in Positive blood culture Not detected Roshni tropicalis DNA [Presence] by MARC with non-probe detection in Positive blood culture Not detected Vancomycin resistance Eva + vanB genes [Presence] by Molecular method Not Applicable Carbapenem resistance blaVIM gene [Presence] by Mol (more content not included)... Normal [facility] Comment on above: Performed By: #### C UU #### [address] Bacteria identified Cx Nom (Bld) Bio[employer] BCID Panel results called at 0344 on 02/27/25 Gram stain results called at 0345 on 02/27/25 Gram Stain Gram Negative Bacilli ORGANISM: Escherichia coli (O:ESCCOL) Organism Comments For GENNA Refer to Final Report of Blood Culture Collected Date 02/26/25 PERFORMED BY: [place] [address] PATHOLOGIST AMMONIA DISTILLER ASTRID HELLER M.D. Normal [facility] Comment on above: Performed By: #### C UU #### [address] COVID-19 Detected/Not Detect edOrdered By: Melody Siddiqi on 02-26-2025 SARS-CoV-2 (COVID-19) RNA MARC+non-probe Ql (Nph) Not detected Not Detecte [facility] Comment on above: This is a duplicate RP2.1 COVID (PCR) result to be used for statistical tracking purpose only. CT abdomen pelvis w conon CT abdomen pelvis w con [facility] Main [place] [address] [place] [address] CT Scan Report Signed Patient: Dyan Harrell MR#: [id number] : 1960 Acct:[id number] Age/Sex: 64 / M ADM Date: 02/26/25 Loc: ER Room: Type: [facility] ER Attending Dr: Copies to: Melody Siddiqi APRN Ordering Provider: Melody Siddiqi APRN Date of Service: 02/26/25 CT/CT abdomen pelvis w con: Pain, recent prostate surgery CT Abdomen and Pelvis withcontrast TECHNIQUE: Axial imaging with 2-D reconstruction. . The CT exam was performed using one or more the following dose reduction techniques: Automated exposure control, adjustment of the MA and/or Kv according to patient size, or use of the iterative reconstruction technique. COMPARISON: None History: Fever and chills. Nausea and vomiting. Recent prostate surgery LIMITATIONS: None LOWER THORAX Unremarkable coronary artery calcification LIVER: Unremarkable GALLBLADDER: Cholecystectomy clips identified. BILE DUCTS: No dilatation SPLEEN: Unremarkable PANCREAS: Chronic pancreatitis ADRENAL GLANDS: Unremarkable KIDNEYS: Bilateral Nephrolithiasis measuring up to 4 mm. No obstructive uropathy. AORTA: No abdominal aortic aneurysm identified. Atherosclerosis. RETROPERITONEUM: No significant retroperitoneal abnormalities identified. MESENTERY:Unremarkable STOMACH:Unremarkable SMALL BOWEL: The small bowel loops are nondistended. APPENDIX: The appendix is normal. COLON: Unremarkable URINARY BLADDER: Urinary bladder wall thickening. Underdistention versus cystitis. Air within the lumen. Correlate with catheterization. REPRODUCTIVE SYSTEM: Prostatomegaly. Foci of air throughout the prostate. Heterogeneous enhancement. PNEUMOPERITONEUM: None PERITONEAL FLUID:None BONY STRUCTURES: Unremarkable ABDOMINAL WALL: Unremarkable CT/CT abdomen pelvis w con IMPRESSION: Postsurgical changes of the prostate gland. Foci of air within the prostate gland. Correlate with recent surgery versus infection. Urinary bladder wall thickening suggesting cystitis. Air within the urinary bladder. Correlate with catheterization. Nephrolithiasis without obstructive uropathy. Impression dictated by: Herman Harper M.D. 02/26/2025 5:38 PM Dictation Location: [facility] Transcribed By: [facility] 02/26/25 1738 Dictated By: Herman Harper DO 02/26/25 1734 Signed By: 02/26/25 1738 Normal [facility] Calcium [Mass/volume] in Ser um or PlasmaOrdered By: Melody Siddiqi on 02-26-2025 Calcium [Mass/Vol] 10.1 mg/dL Normal 8.6-10.3 [facility] Comment on above: Performed By: #### C UBLD, LACTIC, BNP, CK, HS TROP, PTT, PT, MG, CMP, CBC #### [facility] [address] Capillary blood glucose hermelinda urement by glucometer (mass/volume)Ordered By: Orlando Walton on 02-26-2025 Glucose [Mass/Vol] 170 mg/dL Normal [facility] Comment on above: Random Glucose Refer ence Range is dependent on time and content of last meal. Glucose of more than 200 mg/dL in a nonstressed, ambulatory subject supports the diagnosis of Diabetes Mellitus. Result Comment: [facility] Glucose Reference Range is dependent on time and content of last meal. Glucose of more than 200 mg/dL in a nonstressed, ambulatory subject supports the diagnosis of Diabetes Mellitus. PERFORMED BY: [place] [address] PATHOLOGIST AMMONIA DISTILLER ASTRID HELLER M.D. Performed By: #### C UU #### [address] Carbon dioxide, total [Moles /volume] in Serum or PlasmaOrdered By: Melody Siddiqi on 02-26-2025 CO2 [Moles/Vol] 25.3 mmol/L Normal 21.0-31.0 [facility] Comment on above: Performed By: #### C UBLD, LACTIC, BNP, CK, HS TROP, PTT, PT, MG, CMP, CBC #### [address] Chloride [Moles/volume] in S kristian or PlasmaOrdered By: Melody Siddiqi on 02-26-2025 Chloride [Moles/Vol] 101 mmol/L Normal 98-107 [facility] Comment on above: Performed By: #### C UBLD, LACTIC, BNP, CK, HS TROP, PTT, PT, MG, CMP, CBC #### [address] Coding Summaryon 02-26-2025 Coding Summary HTMLBase 64 ZnohrvuvKIn5yNo+PGhlYWQ+PE 7JOWMoE21asSZtbK7vU0CVDAdS XgfsHBCYVSfLXyPhzzCrEI2nyQ NjZXJu IC8+JU0wXXQzSpmctZAnv4M1xE C5T15gom8aZYwunNP0HMDpFwGz ahaju4yxbZr0IFwxBqtySpCa PIKvyW26AAK6zD66Jn52tNOgqQ Qxv4gcqIs5CzWhQDCdKJS2cAyq QBcnv8PiHNMaH50ygQSmk3I7 LGJvgFebzLCuVbIcoIF5yO7lTQ sujgxwa0hffksjAhe4xx68iNSg m0B4hKX3Q1ThlmA4PHUfmGDq SevqtVXCpL8quntdg6oqmncpVe XsOXJxMId6SXw1WQFqlZfuEeQi SD93GOA1KXSewsChU9GvVGPj bHmzFpN8c0V2Zy5AX0AIUnapH6 VNTUFSWTwvdGQ+PB00uu66M3Uz LgmoZyc0BYZxABI8eFE1oG8k USSmBKonl4H0nHA5J2ZylrLoyx 1da8trFNYyZCywN93nkICoo0Z3 LPPwhJA5FBLezQigXyHwmY24 Oyc+YFYikIpgg8OpIbitm9qij7 jznMk5TqzsAFUerhPwhXlyANT9 b9WlMk7tUJLucPF1tSZ0hE8a VsYvIoR6XKyeQ325XzGhhWAiLg zgG97jG2LvrMD+BLWmAnz5UEJo fOmuLI9cB1QzBLPzmsiivJBx uKvcRN2pWZIgmzeuYETfdB8fTS GrH9p7KiGdYtW1SZlzL9MeYJRy jwemUn11rP0tAgDyKdP4FUyi G5TaeiI5IRTnhRYdKUgvSJS0O9 4ei6D6CZOvWXMuLSJ0jYN5uP2j bGlnbjogbGVmdDsgdmVydGlj WBemHFnnR894UAQgpLygBqCuTY luZyBEYXRlOiAgMDgvMjEvMjAy NTwvdGQ+QWJtXMO7qYyoWGQp fETcOCwrHl1edNtpgZraUW8qFD MjqxnfNTXsfX9tCOTwkBCsxMpe AB6pYMVnzlare181ZlXvKCE1 XASozPYdF2SlzG3rOfYjZBDuUG EjO6JfpFNmWVxdE720VAfqBxM3 PTGoyuOyJ6LrLNLgiNbdPvP0 y5Y5Ov7Gz3NvfswpS2OyxQUwFg VsNdxaLIf3L8RmZgnhiUC+PC90 JGYjNH76XIo4XCZ7pCgpFAod NHRlJ1JbbX6bDdWcRKZlPPRcQn c+PHRhYmxlIHdpZHRoPScxMDAl BqVfcHegJV3fHn7pZIVbLYZs rAhidTAxBaVhc1hjFIQnEQdcRE 6tqIiuW8IlxGM3EFZan9n5Rt88 E53rN2QuwLJ+AMIhlSI1pRH5 oB7oPmTyWzZ7JFajK331RiQwwF JiCpmqq4wcl8kncYx7UlO1KSBw eyPdxVbnZMS3b4BeVs13T14f IHdpZHRoPSIxNSUiIHZhbGlnbj 5ybP7eAl8+HYEvgBK7hBD1dP0a LpBhOnT1EMrtC900SgIwhPEg Nwwyr6pmj6sjgZb4ZyDjXEKohl PxaPrnLTR2i4WoOs61R3YviJbm d9JqKfq1wf50kJVqc1J4rEV2 Z6UaJFFmcgxwnNTkoWjnEL4lBR QlrnzyXPKvrQ7kVJBcK9c4VwBe ChQ6MPyeN1VduwD9PQEloPCm YXErzZVZzN9okkvyy8llurqaIy LiAQIvWLv6RAf3FBUzuSdkZbXn YHS8BjO4ZLQ3rHCvbV3upGye mgifwJ1sGnu+NRE5qXOcySOFMM 1lOjwvdGQ+EYKyLJD9iJnhXHwj MFOniE8oPCNyC5n1BgFmElS5 HWaiM8WbnrY0RDYqbWAjBGPhqV GXzS2mttyur6adfqhjHtDbCSDt DZa4YCe1WHGtdZrxIkRmJUM0 KcN6GPR7mDLwsN4qfIesyvtcrX 9wOyc+GszgrVyeQTJ7LKx5D6Rd Nya1RZBjoMnqZI9jxZZwPQyg Rp7hgXadwUptVJ9iXOBhxuvpy7 41CsLrn1mtSWDdcQQyOWqnVIW8 M93pf6L5TQObQKZhGXM0xNP2 fU1skNyjvwqruXBbpDuazjZanN oxPSvfDMwrY263KVQjaNbuGhDm UQk1C2KyMno5POWdoHneFD8n wMEhDGmxZl9evZtxbGhjHN2hSP Sedqouh040MbOiu1imYUGbmFWn VZmnWDR1A37gw4Y7DKDjAMWb UMV9pAM0lH1kqYdttuhwzTGvgA bnioHzmOlmERgwGMnuD186UILv yLzzHsShmHo6M3NlRnt7VGIa eIguJP1jzNZuWKxuUh2mtQwiuU auLD2eHUNqvqebw304EdDdf8bp RLTiaQMzKBgjSHF3E75pn9B8 CUWdQXHtRYM8lQT1nR9fmAdpwa ogbGVmdDsgdmVydGljYWwtYWxp F925QGHmjEbnGyJvhFamtaBk HYvyFZs4O0OwKhikmFY+PC90YW AeTR61cQUijERll3dpvTv7JlVn IFWgZKY9lPwyLHuqi2BcLTEa N72bvJSez8L3KIInqMbiwQRoYi BijRL8kX6mBAqnrfuoq9hdgstw Bthhk1cyyi49eB32R87tYSgn XOZaJUOzIUOiTZMuuBtgnv2wnH 9wIi8+PTKmzQZ7vVK3jE4vTBYg LbT6WPzwF430WgYpyUSbWkxi p1rzj8zjmHb3TxU6JXScdoBnzV hgSQK8m8XqBp81R96xCPhaVWTd JOBjQVHjAOVplSixjr0ayV2g Ii8+FTAkfHL7gGQ6bS3zGdJgZu O7GEagX661DzVyoOLvPjzlQ59v Y1UvhVF+KEBhCbw0GRTvvDky KY9wlYKmTPchQn9mDIG0KtYgYm HuPRgyH7YbQLNhovnaakssvDU6 XGYtZRVanK21Xk4doLkxPPUp iVMYqH0lcdjqn5osymcjJfNrFR YqJXm9OPj2GCFnaSruDmCyXDE4 VyP2IOX2wIDfkO8qfWmmxphl fC0mP4MkNTNgqlsnZu86hT9gDa LiAcV3SUzbUud+L1eUXYmUMFEG SUNIQUVMIFJBWTwvdGQ+PHRk EHF4lHkqASsuXCYzuE6kEOQxL9 w9VcEuRuK3PPqfT2WkGWYlrdac Kj04yC8vRrQcEkB5KVfdF0Kr tmC7GPQbrRUfCDkuSVS6I67ih5 D3KAUqKULxBAE8gKN7fP7oeAqj bjogbGVmdDsgdmVydGljYWwt JDprT256KLXyeRnyZqL3DmEnGo V5ENb0A6WqVha9FGUukEtqWY8p aMJeJVpzCo5kiHiauHlnYI3b YDFnotwoZWKrgY7rJWMspCEbiR iqXY6uWTDnluqpt594FgFpPPN7 GXVuvOLdJ4CzhE3tVtFiXAWr AKIkA1GykGZeOLbeE697KEokVo Q4KEJbjoDvD9UdMDAovWqtPdK6 o6C4Iq98FhBELMUeqlashKK+ MCIiVBM0tFevRSvjQXObcY1aHS NvL1z4FpUfMkF1BCimZ2AsEHDb zqvaJy17qN7wKyXoBvY0UGmi H0LtchF1WFYubIKsPArlOUJ5J3 6hi2O3ZUDpMKHbWVI2hLZ5fC7t bGlnbjogbGVmdDsgdmVydGlj QQtkVQhrN950XWUjyKsoJu9IUR B2K6QrHcd9QUQqgOwmPX6oaSYm YHxpWl9otXttjIduSF0tXKKh bhfhHWIniX2cTQYknZQrfWgxCA 9cQWZwpvkij705UvMlXCW9EHQi sVXiF6HgtA5lIqAmKKNqSDSt C9PvcZLvMPmlL629TQpvYyV9TJ RenpPaC8HyUDSytZbyKnH5m0K5 Jf4XAFaelLU+WC81xm76E8Bs KnbpMiv7PUZgURL6kLD8vP6zYM WjDGjvz4M8pFO8F2MhvlWjbq4l e3myYWHlKFozF64zkDUww9B0 ZEHuySK3XVMwfTwkZlDytF89Lb c+XXEepLbjb3EhQorxa0ndy6ju wHe3PvSiRYWomgHxxBckALQ7 l2QdFn03Z77dVFzpEESiIMRcWY WaHMCyySgkzn6okI5yRk9+PGNv hJM0yHF7nZ9tMtDrYhN5GSog F066ZmWagMHxRhcet0gsl5yudJ n5UvFkJBUxikNjuQhiRRK6n2Uz Eo53Y9MpxJhnc5WzCph5pk56 bPKpf0O3fCE3Z3DjMYCrcbgczP ImjPjvUX3kBDBqhwtyVFFolC4a VEYvM0q2VyMjCuE0ZOchW4Oe oiB0MNTpdFGaFHJqwHAZrC3sqw qil6dedmzyLvNmNSGfYRo5HMx1 EGXxcIcfLaRdILX0SyW1HDA8 kKLlpN0slCipcqjlsL6uNqq+UG f1v7pryREmJT6wvFE0NE94NK59 rLLsb6E8vIP1B2BvLZMvmzgg ylfhwYH1KATwHNXsxG58Kg7imW ylAb5nGISdMXG8BYNnnQMuT4Ru dT9dGwFbVVIeEXMhC9WzcQGs OVwfI401SZmsNbB3FBIslrKkY5 KkYJQroDesNkT6y0Z8Mi0LHR49 VT99HV94yXKxx4T9aFS1L0Zn FDUfyxcutcoglOU6PJGuTULwyV 01Xm0unBcqPs5wCTBbTRY5LDLr oDBzR6TstC4vHyYdJNRlEYXc V8WzoKScJMxmO630JHlpHoG9YZ GtiyViG2IfKTRhjSkqQxK8j9X9 Mr7KMg64SR63AW40eVQbm4Q8 rNP0B2NtIJMiiafwvaxoqIG0KF YzAZGgrI36Nk0qbSknYo1oWOMz HZC8IHNqaSMoY9LseS7cQyEx EARxDNBpK6LyfLJzIOxkE113IG qxDrF1OXXyqeNuE9SgGOYqoEdt DgS8k2B1Ye7QFRqwrrg5F5Fc PjwvdHI+VC45LUQaGD96pLSzpW Wac3aksFi1KcRtFYWbVJO5xAxe YClfl7LuFCLsB29wuHVoe9X5 IGN (more content not included)... Normal [facility] Color of Urine by AutoOrdere d By: Melody Siddiqi on 02-26-2025 Color (U) Light-orange Critically abnormal Yellow [facility] Comment on above: Order Comment: Name Collection Type:: Clean-Voided Midstream Performed By: #### C UU #### [place] [address] Complete Blood Count Auto Di ffon 02-26-2025 Mean Corpuscular HGB Conc 33.8 g/dL Normal 32.5-35.6 [facility] Comment on above: Performed By: #### C UBLD, LACTIC, BNP, CK, HS TROP, PTT, PT, MG, CMP, CBC #### [address] Monocytes/100 WBC (Bld) 26.96 % High 0.00-20.00 [facility] Comment on above: Result Comment: For adults in ED, MDW > 20.0 may be associated with a higher risk of sepsis during the first 12 hrs of hospital admission Performed By: #### C UBLD, LACTIC, BNP, CK, HS TROP, PTT, PT, MG, CMP, CBC #### [address] NRBC% 0.0 /100{WBC} Normal 0-0.5 [facility] Comment on above: Performed By: #### C UBLD, LACTIC, BNP, CK, HS TROP, PTT, PT, MG, CMP, CBC #### [address] White Blood Count 17.8 [CFU]/mL High 4.1-10.5 [facility] Comment on above: Performed By: #### C UBLD, LACTIC, BNP, CK, HS TROP, PTT, PT, MG, CMP, CBC #### [address] Comprehensive Metabolic Pane edilson 02-26-2025 Albumin [Mass/Vol] 3.8 g/dL Normal 3.5-5.7 [facility] Comment on above: Performed By: #### C UBLD, LACTIC, BNP, CK, HS TROP, PTT, PT, MG, CMP, CBC #### [address] Creatinine Clr Calc Pharmacy 78.19 Normal [facility] Comment on above: Performed By: #### C UBLD, LACTIC, BNP, CK, HS TROP, PTT, PT, MG, CMP, CBC #### [place] [address] [place] GFR/1.73 sq M.predicted MDRD (S/P/Bld) [Vol rate/Area] mL/min/{1.73_m2} Normal [facility] Comment on above: Performed By: #### C UBLD, LACTIC, BNP, CK, HS TROP, PTT, PT, MG, CMP, CBC #### [address] Creatine kinase [Enzymatic a ctivity/volume] in Serum or PlasmaOrdered By: Melody Siddiqi on 02-26-2025 CK [Catalytic activity/Vol] 17 U/L Low 30-223 [facility] Comment on above: Performed By: #### C UU #### [address] Creatinine [Mass/volume] in Serum or PlasmaOrdered By: Melody Siddiqi on 02-26-2025 Creatinine [Mass/Vol] 1.02 mg/dL Normal 0.70-1.30 [facility] Comment on above: Performed By: #### C UBLD, LACTIC, BNP, CK, HS TROP, PTT, PT, MG, CMP, CBC #### [address] Dipstick and Microscopicon 0 02-26-2025 Bacteria,Urine 4+ [HPF] Normal None Seen [facility] Comment on above: Order Comment: Name Collection Type:: Clean-Voided Midstream Performed By: #### C UU #### [place] [address] [place] Bilirubin,Urine Negative Normal Negative [facility] Comment on above: Order Comment: Name Collection Type:: Clean-Voided Midstream Performed By: #### C UU #### [address] Glucose Ql (U) >= Normal Normal [facility] Comment on above: Order Comment: Name Collection Type:: Clean-Voided Midstream Performed By: #### C UU #### [address] Hyaline Casts,Urine None Normal 0-8 [facility] Comment on above: Order Comment: Name Collection Type:: Clean-Voided Midstream Performed By: #### C UU #### [address] Mucus,Urine 2+ [LPF] Critically abnormal [facility] Comment on above: Order Comment: Name Collection Type:: Clean-Voided Midstream Result Comment: PERF ORMED BY: [place] [address] PATHOLOGIST AMMONIA DISTILLER ASTRID HELLER M.D. Performed By: #### C UU #### [address] Nitrite,Urine Negative Normal Negative [facility] Comment on above: Order Comment: Name Collection Type:: Clean-Voided Midstream Performed By: #### C UU #### [address] Occult Blood,Urine 3+ Normal Negative [facility] Comment on above: Order Comment: Name Collection Type:: Clean-Voided Midstream Result Comment: PERF ORMED BY: [place] [address] PATHOLOGIST AMMONIA DISTILLER ASTRID HELLER M.D. Performed By: #### C UU #### [address] RBC,Urine Innumerable Normal 0-4 [facility] Comment on above: Order Comment: Name Collection Type:: Clean-Voided Midstream Performed By: #### C UU #### [address] Specificy [place],Urine 1.014 Normal 1.001-1.030 [facility] Comment on above: Order Comment: Name Collection Type:: Clean-Voided Midstream Performed By: #### C UU #### [address] Urobilinogen,Urine Normal Normal Normal [facility] Comment on above: Order Comment: Name Collection Type:: Clean-Voided Midstream Performed By: #### C UU #### [address] WBC CLUMP, Urine Many Normal None Seen [facility] Comment on above: Order Comment: Name Collection Type:: Clean-Voided Midstream Performed By: #### C UU #### [facility] [address] [place] [address] WBC,Urine Innumerable Normal 0-4 [facility] Comment on above: Order Comment: Name Collection Type:: Clean-Voided Midstream Performed By: #### C UU #### [address] ECG 12 lead ECGon 02-26-2025 ECG 12 lead ECG [facility] Main [place] [address] [place] [address] Electrocardiograph Report Signed Patient: Dyan Harrell MR#: [id number] : 1960 Acct:[id number] Age/Sex: 64 / M ADM Date: 02/26/25 Loc: Room: [address] [place] [address] Type: ADM IN Attending Dr: Orlando Walton MD Ordering Provider: Melody Siddiqi APRN Date of Service: 02/26/25 ECG/ECG 12 lead ECG: WEAKNESS Copies to: Test Reason : Blood Pressure : 129/74 mmHG Vent. Rate : 129 BPM Atrial Rate : 129 BPM P-R Int : 132 ms QRS Dur : 84 ms QT Int : 294 ms P-R-T Axes : 23 74 72 degrees QTcB Int : 430 ms Sinus tachycardia Nonspecific ST abnormality Abnormal ECG When compared with ECG of 09-Jun-2011 17:08, Vent. rate has increased by 53 bpm Confirmed by STEPHON CARRINGTON MD ([id number]) on 02/27/2025 4:52:38 PM Referred By: Electronically Signed By: STEPHON CARRINGTON MD Transcribed By: MUS Signed By Stephon Carrington MD 0 02/27/25 1652 Normal [facility] Eosinophils [#/volume] in Bl ood by Automated countOrdered By: Melody Siddiqi on 02-26-2025 Eosinophils (Bld) [#/Vol] 0.2 10*3/uL Normal 0.0-0.45 [facility] Comment on above: Performed By: #### C UBLD, LACTIC, BNP, CK, HS TROP, PTT, PT, MG, CMP, CBC #### [facility] [address] Eosinophils/100 leukocytes i n Blood by Automated countOrdered By: Melody Siddiqi on 02-26-2025 Eosinophils/100 WBC (Bld) 1.0 % Normal . [facility] Comment on above: Performed By: #### C UBLD, LACTIC, BNP, CK, HS TROP, PTT, PT, MG, CMP, CBC #### [facility] [address] Epithelial cells.squamous [# /area] in Urine sediment by Automated countOrdered By: Melody Siddiqi on 02-26-2025 Epithelial cells.squamous Auto (Urine sed) [#/Area] N/A [facility] Erythrocyte distribution wid th [Ratio] by Automated countOrdered By: Melody Siddiqi on 02-26-2025 Erythrocyte distribution width (RBC) [Ratio] 13.8 % Normal 12.0-14.8 [facility] Comment on above: Performed By: #### C UBLD, LACTIC, BNP, CK, HS TROP, PTT, PT, MG, CMP, CBC #### [facility] [address] Erythrocytes [#/area] in Uri ne sediment by Automated countOrdered By: Melody Siddiqi on 02-26-2025 RBC Auto (Urine sed) [#/Area] Innumerable [HPF] High 0-4 [facility] Erythrocytes [#/volume] in B lood by Automated countOrdered By: Melody Siddiqi on 02-26-2025 RBC (Bld) [#/Vol] 4.71 10*6/uL Normal 3.90-5.60 [facility] Comment on above: Performed By: #### C UBLD, LACTIC, BNP, CK, HS TROP, PTT, PT, MG, CMP, CBC #### [facility] [address] Glomerular filtration rate [ Volume Rate/Area] in Serum, Plasma or Blood by CreatinineOrdered By: Melody Siddiqi on 02-26-2025 Glomerular filtration rate [Volume Rate/Area] in Serum, Plasma or Blood by Creatinine > 60.0 mL/Min [facility] Glucose [Mass/volume] in Ser um or PlasmaOrdered By: Melody Siddiqi on 02-26-2025 Glucose [Mass/Vol] 154 mg/dL High 70-100 [facility] Comment on above: ADA recommended refe rence rangeRandom Glucose Reference Range is dependent on time and content of last meal. Glucose of more than 200 mg/dL in a nonstressed, ambulatory subject supports the diagnosis of Diabetes Mellitus. Result Comment: [place] om Glucose Reference Range is dependent on time and content of last meal. Glucose of more than 200 mg/dL in a nonstressed, ambulatory subject supports the diagnosis of Diabetes Mellitus. ADA recommended reference range Performed By: #### C UBLD, LACTIC, BNP, CK, HS TROP, PTT, PT, MG, CMP, CBC #### [facility] [address] Glucose [Mass/volume] in Uri ne by Test stripOrdered By: Melody Siddiqi on 02-26-2025 Glucose Test strip (U) [Mass/Vol] >=1000 mg/dL High Normal [facility] Hematocrit [Volume Fraction] of Blood by Automated countOrdered By: Melody Siddiqi on 02-26-2025 Hematocrit (Bld) [Volume fraction] 39.7 % Normal 38.8-50.0 [facility] Comment on above: Performed By: #### C UBLD, LACTIC, BNP, CK, HS TROP, PTT, PT, MG, CMP, CBC #### [facility] [address] Hemoglobin Test strip Ql (U) Ordered By: Melody Siddiqi on 02-26-2025 Hemoglobin Ql (U) 3+ High Negative [facility] Hemoglobin [Mass/volume] in BloodOrdered By: Melody Siddiqi on 02-26-2025 Hemoglobin (Bld) [Mass/Vol] 13.4 g/dL Normal 13.0-17.0 [facility] Comment on above: Performed By: #### C UBLD, LACTIC, BNP, CK, HS TROP, PTT, PT, MG, CMP, CBC #### [facility] [address] Hyaline casts [#/area] in Ur ine sediment by Automated countOrdered By: Melody Siddiqi on 02-26-2025 Hyaline casts Auto (Urine sed) [#/Area] None [LPF] 0-8 [facility] INR in Platelet poor plasma by Coagulation assayOrdered By: Melody Siddiqi on 02-26-2025 INR Coag (PPP) [Relative time] 1.1 {INR} Normal [facility] Comment on above: INR Therapeutic Rang e A) Pre- and Peroperative OAT started two weeks before surgery. NOT HIP SURGERY: 1.5 - 2.5 HIP SURGERY: 2 - 3B) Primary and secondary prevention of venous THROMBOSIS: 2 - 3C) Active venous thrombosis, pulmonary embolismand prevention of recurrent venous thrombosis: 2 - 3D) Prevention of arterial thromboembolismincluding patients with mechanical heart valves: 3 - 4.5 Result Comment: INR Therapeutic Range A) Pre- and Peroperative OAT started two weeks before surgery. NOT HIP SURGERY: 1.5 - 2.5 HIP SURGERY: 2 - 3 B) Primary and secondary prevention of venous THROMBOSIS: 2 - 3 C) Active venous thrombosis, pulmonary embolism and prevention of recurrent venous thrombosis: 2 - 3 D) Prevention of arterial thromboembolism including patients with mechanical heart valves: 3 - 4.5 Performed By: #### C UBLD, LACTIC, BNP, CK, HS TROP, PTT, PT, MG, CMP, CBC #### [facility] [address] Ketones [Presence] in Urine by Test stripOrdered By: Melody Siddiqi on 02-26-2025 Ketones Ql (U) Negative Normal Negative [facility] Comment on above: Order Comment: Name Collection Type:: Clean-Voided Midstream Performed By: #### C UU #### [address] Lactate [Moles/volume] in Se rum or PlasmaOrdered By: Melody Siddiqi on 02-26-2025 Lactate [Moles/Vol] 1.1 mmol/L 0.5-1.9 [facility] Comment on above: Lactic Acid referenc e range has been updated to 0.5 1.9 mmol/L and the critical range of 2.0 or greater. Lactic Acidon 02-26-2025 Lactate [Moles/Vol] 4.2 mmol/L Off scale high 0.5-1.9 [facility] Comment on above: Result Comment: Crit ical Result : Called to and read back by: FELICIANO DE at: 02/26/2025 16:44:18 by:[id number] Lactic Acid reference range has been updated to 0.5 ? 1.9 mmol/L and the critical range of 2.0 or greater. PERFORMED BY: [place] [address] PATHOLOGIST AMMONIA DISTILLER ASTRID HELLER M.D. Performed By: #### C UBLD, LACTIC, BNP, CK, HS TROP, PTT, PT, MG, CMP, CBC #### [address] Lactic Acid Reflexon 025 Lactic Acid Reflex 1.1 mmol/L Normal 0.5-1.9 [facility] Comment on above: Result Comment: Lact ic Acid reference range has been updated to 0.5 ? 1.9 mmol/L and the critical range of 2.0 or greater. PERFORMED BY: [place] [address] PATHOLOGIST AMMONIA DISTILLER ASTRID HELLER M.D. Performed By: #### C UU #### [address] Leukocyte clumps [Presence] in Urine by AutomatedOrdered By: Melody Siddiqi on 02-26-2025 Leukocyte clumps Auto Ql (U) Many [LPF] High None Seen [facility] Leukocyte esterase [Presence ] in Urine by Test stripOrdered By: Melody Siddiqi on 02-26-2025 Leukocyte esterase Test strip Ql (U) 4+ Normal Negative [facility] Comment on above: Order Comment: Name Collection Type:: Clean-Voided Midstream Performed By: #### C UU #### [facility] [address] [place] [address] [place] Leukocytes [#/area] in Urine sediment by Automated countOrdered By: Melody Siddiqi on 02-26-2025 WBC Auto (Urine sed) [#/Area] Innumerable [HPF] High 0-4 [facility] Leukocytes [#/volume] correc rosetta for nucleated erythrocytes in Blood by Automated counOrdered By: Melody Siddiqi on 02-26-2025 WBC corrected for nucl RBC Auto (Bld) [#/Vol] 17.8 10*3/uL High 4.1-10.5 [facility] Leukocytes [#/volume] in Blo od by Automated countOrdered By: Melody Siddiqi on 02-26-2025 WBC (Bld) [#/Vol] 17.8 10*3/uL High 4.1-10.5 [facility] Comment on above: Performed By: #### C UBLD, LACTIC, BNP, CK, HS TROP, PTT, PT, MG, CMP, CBC #### [facility] [address] [place] [address] [place] Lymphocytes [#/volume] in Bl ood by Automated countOrdered By: Melody Siddiqi on 02-26-2025 Lymphocytes (Bld) [#/Vol] 0.9 10*3/uL Low 1.00-4.8 [facility] Comment on above: Performed By: #### C UBLD, LACTIC, BNP, CK, HS TROP, PTT, PT, MG, CMP, CBC #### [facility] [address] [place] [address] [place] Lymphocytes/100 leukocytes i n Blood by Automated countOrdered By: Melody Siddiqi on 02-26-2025 Lymphocytes/100 WBC (Bld) 5.3 % Normal . [facility] Comment on above: Performed By: #### C UBLD, LACTIC, BNP, CK, HS TROP, PTT, PT, MG, CMP, CBC #### [facility] [address] MCH [Entitic mass] by Automa rosetta countOrdered By: Melody Siddiqi on 02-26-2025 MCH (RBC) [Entitic mass] 28.5 pg Normal 27.5-35.2 [facility] Comment on above: Performed By: #### C UBLD, LACTIC, BNP, CK, HS TROP, PTT, PT, MG, CMP, CBC #### [facility] [address] MCHC Auto (RBC) [Mass/Vol]Or dered By: Melody Siddiqi on 02-26-2025 MCHC (RBC) [Mass/Vol] 33.8 g/dL 32.5-35.6 [facility] MCV [Entitic volume] by Auto mated countOrdered By: Melody Siddiqi on 02-26-2025 MCV (RBC) [Entitic vol] 84.3 fL Normal 83.5-101 [facility] Comment on above: Performed By: #### C UBLD, LACTIC, BNP, CK, HS TROP, PTT, PT, MG, CMP, CBC #### [facility] [address] [place] [address] Magnesium [Mass/volume] in S kristian or PlasmaOrdered By: Melody Siddiqi on 02-26-2025 Magnesium [Mass/Vol] 1.6 mg/dL Low 1.9-2.7 [facility] Comment on above: Result Comment: PERF ORMED BY: [place] [address] PATHOLOGIST AMMONIA DISTILLER ASTRID HELLER M.D. Performed By: #### C UBLD, LACTIC, BNP, CK, HS TROP, PTT, PT, MG, CMP, CBC #### [address] Monocyte distribution width [Entitic volume] in Blood by AutomatedOrdered By: Melody Siddiqi on 02-26-2025 Monocyte distribution width Auto (Bld) [Entitic vol] 26.96 % High 0.00-20.00 [facility] Comment on above: For adults in ED, MD W > 20.0 may be associated with a higher risk of sepsis during the first 12 hrs of hospital admission Monocytes [#/volume] in Bloo d by Automated countOrdered By: Melody Siddiqi on 02-26-2025 Monocytes (Bld) [#/Vol] 0.3 10*3/uL Normal 0.0-0.8 [facility] Comment on above: Performed By: #### C UBLD, LACTIC, BNP, CK, HS TROP, PTT, PT, MG, CMP, CBC #### [address] Monocytes/100 leukocytes in Blood by Automated countOrdered By: Melody Siddiqi on 02-26-2025 Monocytes/100 WBC (Bld) 1.4 % Normal . [facility] Comment on above: Performed By: #### C UBLD, LACTIC, BNP, CK, HS TROP, PTT, PT, MG, CMP, CBC #### [address] Mucus [Presence] in Urine by AutomatedOrdered By: Melody Siddiqi on 02-26-2025 Mucus Auto Ql (U) 2+ [LPF] Abnormal [facility] Neutrophils [#/volume] in Bl ood by Automated countOrdered By: Melody Siddiqi on 02-26-2025 Neutrophils (Bld) [#/Vol] 16.3 10*3/uL High 1.8-7.7 [facility] Comment on above: Performed By: #### C UBLD, LACTIC, BNP, CK, HS TROP, PTT, PT, MG, CMP, CBC #### [place] [address] [place] Neutrophils/100 leukocytes i n Blood by Automated countOrdered By: Melody Siddiqi on 02-26-2025 Neutrophils/100 WBC (Bld) 91.6 % Normal . [facility] Comment on above: Performed By: #### C UBLD, LACTIC, BNP, CK, HS TROP, PTT, PT, MG, CMP, CBC #### [place] [address] [place] Nitrite Test strip Ql (U)Ord ered By: Melody Siddiqi on 02-26-2025 Nitrite Ql (U) Negative Negative [facility] No Panel InformationOrdered By: Melody Siddiqi on 02-26-2025 Bacterial ID (NA Multiplex Assay) [facility] Creatinine Clearance (Chem 78.19 [facility] Nucleated erythrocytes [Pres ence] in Blood by Automated countOrdered By: Melody Siddiqi on 02-26-2025 Nucleated RBC Auto Ql (Bld) 0.0 /100{WBC} 0-0.5 [facility] Partial Thromboplastin Timeo n 02-26-2025 aPTT Coag (Bld) [Time] 25.3 s Normal 25.1-36.5 Th e [facility] Comment on above: Result Comment: A he matocrit value greater than 55% may lead to inaccurate results in coagulation testing. Patients having hematocrit values >55% require a special collection tube for coagulation studies. Please contact the laboratory at [phone] for redraw instructions. PERFORMED BY: [address] [place] [address] PATHOLOGIST AMMONIA DISTILLER ASTRID HELLER M.D. Performed By: #### C UBLD, LACTIC, BNP, CK, HS TROP, PTT, PT, MG, CMP, CBC #### [facility] [address] [place] [address] Platelet mean volume [Entiti c volume] in Blood by Automated countOrdered By: Melody Siddiqi on 02-26-2025 Platelet mean volume (Bld) [Entitic vol] 7.2 fL Normal 6.6-10.1 [facility] Comment on above: Performed By: #### C UBLD, LACTIC, BNP, CK, HS TROP, PTT, PT, MG, CMP, CBC #### [facility] [address] [place] [address] Platelets [#/volume] in Bloo d by Automated countOrdered By: Melody Siddiqi on 02-26-2025 Platelets (Bld) [#/Vol] 486 10*3/uL High 150-450 [facility] Comment on above: Performed By: #### C UBLD, LACTIC, BNP, CK, HS TROP, PTT, PT, MG, CMP, CBC #### [facility] [address] [place] [id number] [place] Potassium [Moles/volume] in Serum or PlasmaOrdered By: Melody Siddiqi on 02-26-2025 Potassium [Moles/Vol] 3.9 mmol/L Normal 3.5-5.1 [facility] Comment on above: Performed By: #### C UBLD, LACTIC, BNP, CK, HS TROP, PTT, PT, MG, CMP, CBC #### [facility] [address] [place] [address] [place] Protein [Mass/volume] in Ser um or PlasmaOrdered By: Melody Siddiqi on 02-26-2025 Protein [Mass/Vol] 7.7 g/dL Normal 6.4-8.9 [facility] Comment on above: Performed By: #### C UBLD, LACTIC, BNP, CK, HS TROP, PTT, PT, MG, CMP, CBC #### [facility] [address] [place] [id number] [place] Protein [Mass/volume] in Uri ne by Test stripOrdered By: Melody Siddiqi on 02-26-2025 Protein (U) [Mass/Vol] 100 mg/dL Normal Negative [facility] Comment on above: Order Comment: Name Collection Type:: Clean-Voided Midstream Performed By: #### C UU #### [facility] [address] [place] [id number] [place] Prothrombin time (PT)Ordered By: Melody Siddiqi on 02-26-2025 PT Coag (PPP) [Time] 12.5 s Normal 9.0-12.9 [facility] Comment on above: A hematocrit value g reater than 55% may lead to inaccurate results in coagulation testing. Patients having hematocrit values >55% require a special collection tube for coagulation studies. Please contact the laboratory at [phone] for redraw instructions. Result Comment: A he matocrit value greater than 55% may lead to inaccurate results in coagulation testing. Patients having hematocrit values >55% require a special collection tube for coagulation studies. Please contact the laboratory at [phone] for redraw instructions. Performed By: #### C UBLD, LACTIC, BNP, CK, HS TROP, PTT, PT, MG, CMP, CBC #### [facility] [address] [place] [id number] [facility] Respiratory (Upper) Panel, P CRon 02-26-2025 Respiratory (Upper) Panel, PCR Adenovirus Not detected Bordetella parapertussis Not detected Chlamydia pneumoniae Not detected Coronavirus 229E Not detected Coronavirus HKU1 Not detected Coronavirus NL63 Not detected Coronavirus OC43 Not detected Influenza A Not detected Influenza B Not detected Human Metapneumovirus Not detected Mycoplasma pneumoniae Not detected Parainfluenza Virus 1 Not detected Parainfluenza Virus 2 Not detected Parainfluenza Virus 3 Not detected Parainfluenza Virus 4 Not detected Bordetella pertussis-ptxP Not detected Human Rhino/Enterovirus Not detected Resp. Syncytial Virus Not detected COVID-19 Detected/Not Detected Not detected Blank Space -- FLUA TEST INCLUDES Influenza A tests for the following clinically FLUA TEST INCLUDES significant subtypes: FLUA TEST INCLUDES - Influenza A FLUA TEST INCLUDES - Influenza A H1 FLUA TEST INCLUDES - Influenza A H1 2009 FLUA TEST INCLUDES - Influenza A H3 Blank Space -- PERFORMED BY: [place] [address] PATHOLOGIST AMMONIA DISTILLER ASTRID HELLER M.D. Normal [facility] Comment on above: Performed By: #### C UBLD, LACTIC, BNP, CK, HS TROP, PTT, PT, MG, CMP, CBC #### [facility] [address] Respiratory pathogens DNA an d RNA panel - Nasopharynx by MARC with non-probe detectionOrdered By: Melody Siddiqi on 02-26-2025 Respiratory pathogens DNA and RNA panel MARC+non-probe (Nph) [facility] Serum globulin measurement b y calculation (mass/volume)Ordered By: Melody Siddiqi on 02-26-2025 Globulin (S) [Mass/Vol] 3.9 g/dL [facility] Comment on above: Performed By: #### C UBLD, LACTIC, BNP, CK, HS TROP, PTT, PT, MG, CMP, CBC #### [facility] [address] Serum or plasma albumin/glob ulin mass ratioOrdered By: Melody Siddiqi on 02-26-2025 Albumin/Globulin [Mass ratio] 1.0 {ratio} [facility] Comment on above: Performed By: #### C UBLD, LACTIC, BNP, CK, HS TROP, PTT, PT, MG, CMP, CBC #### [facility] [address] [place] [address] Serum or plasma anion gap de terminationOrdered By: Melody Siddiqi on 02-26-2025 Anion gap [Moles/Vol] 14.6 mmol/L Normal 6.0-15.0 [facility] Comment on above: Performed By: #### C UBLD, LACTIC, BNP, CK, HS TROP, PTT, PT, MG, CMP, CBC #### [address] Sodium [Moles/volume] in Ser um or PlasmaOrdered By: Melody Siddiqi on 02-26-2025 Sodium [Moles/Vol] 137 mmol/L Normal 136-145 [facility] Comment on above: Performed By: #### C UBLD, LACTIC, BNP, CK, HS TROP, PTT, PT, MG, CMP, CBC #### [address] Specific gravity Test strip (U) [Rel density]Ordered By: Melody Siddiqi on 02-26-2025 Specific gravity (U) [Rel density] 1.014 1.001-1.030 [facility] Troponin I High Sensitivityo n 02-26-2025 Troponin I High Sensitivity 773 Off scale high 0-20 [facility] Comment on above: Result Comment: Crit ical Result : Called to and read back by: REGAN FERRELL at: 02/26/2025 21:50:17 by:[id number] The Troponin units of report have been changed to meet the Chest Pain Accreditation requirement, element EC5.M1l2. Troponin units are changed from pg/ml to ng/L. Also, the decimal is removed and results are in whole numbers. PERFORMED BY: [place] [phone] PATHOLOGIST AMMONIA DISTILLER ASTRID HELLER M.D. Performed By: #### C UBLD, LACTIC, BNP, CK, HS TROP, PTT, PT, MG, CMP, CBC #### [facility] [address] [place] [address] Troponin I High Sensitivity 102 Off scale high 0-20 [facility] Comment on above: Result Comment: Crit ical Result : Called to and read back by: GABRIELLA BRIGGS at: 02/26/2025 17:35:34 by:[id number] The Troponin units of report have been changed to meet the Chest Pain Accreditation requirement, element EC5.M1l2. Troponin units are changed from pg/ml to ng/L. Also, the decimal is removed and results are in whole numbers. PERFORMED BY: [place] [phone] PATHOLOGIST AMMONIA DISTILLER ASTRID HELLER M.D. Performed By: #### C UU #### [address] Troponin I.cardiac [Mass/vol ume] in Serum or Plasma by Detection limit <= 0.01 ng/mLOrdered By: Orlando Walton on 02-26-2025 Troponin I.cardiac DL <= 0.01 ng/mL [Mass/Vol] 773 ng/L Critically high 0-20 [facility] Comment on above: Critical Result : Ca lled to and read back by: REGAN FERRELL at: 02/26/2025 21:50:17 by:[id number] Troponin units of report have been changed to meet the Chest Pain Accreditation requirement, element EC5.M1l2. Troponin units are changed from pg/ml to ng/L. Also, the decimal is removed and results are in whole numbers. Urea nitrogen [Mass/volume] in Serum or PlasmaOrdered By: Melody Siddiqi on 02-26-2025 Urea nitrogen [Mass/Vol] 15 mg/dL Normal 7-25 [facility] Comment on above: Performed By: #### C UBLD, LACTIC, BNP, CK, HS TROP, PTT, PT, MG, CMP, CBC #### [facility] [address] Urine Cultureon 02-26-2025 Bacteria identified Cx Nom (U) ORGANISM: Escherichia coli (ESBL) (O:ESCCOLESBL) [place] Count >100,000 Aerobic GENNA Charge ([id number]) SUSCEPTIBILITY ORGANISM: O:ESCCOLESBL ANTIBIOTIC INTERPRETATION GENNA Amikacin S <16 Amoxacillin/K Clavulanate S <8 Ampicillin R >16 Ampicillin/Sulbactam I 1616/8 Aztreonam R >16 Cefazolin R >16 Cefepime R >16 Ceftazidime R 8 Ceftazidime/Avibactam S <4 Ceftolozane/Tazobactam S <2 Ceftriaxone R >32 Cefuroxime R >16 Ciprofloxacin S <0.25 Ertapenem S <0.5 Gentamicin S <2 Levofloxacin S <0.5 Meropenem S <1 Meropenem/Vaborbactam S <2 Nitrofurantoin S <32 Piperacillin/Tazobactam S <8 Tetracycline R >8 Tigecycline S <2 Tobramycin S <2 Trimethoprim/Sulfamethoxaz ole R >2 S = SUSCEPTIBLE I = INTERMEDIATE R = RESISTANT BLANK = DATA NOT AVAILABLE, OR DRUG NOT ADVISABLE OR TESTED R* = RESISTANCE DUE TO EXTENDED SPECTRUM BETA-LACTAMASES ESBL = EXTENDED SPECTRUM BETA-LACTAMASE TFG = THYMIDINE-DEPENDENT STRAIN SILVER = BETA-LACTAMASE POSITIVE IB = INDUCIBLE BETA-LACTAMASE. APPEARS IN PLACE OF 'S' WITH SPECIES KNOWN TO POSSESS INDUCIBLE BETA-LACTAMASES. POTENTIALLY THEY MAY BECOME RESISTANT TO ALL B-LACTAM DRUGS. PERFORMED BY: [place] [address] PATHOLOGIST AMMONIA DISTILLER ASTRID Ramirez [facility] Comment on above: Performed By: #### H S TROP #### [address] Urine cultureOrdered By: Jeovanny Siddiqi on 02-26-2025 Bacteria identified Cx Nom (U) Escherichia coli (ESBL) Abnormal [facility] Urobilinogen Test strip (U) [Mass/Vol]Ordered By: Melody Siddiqi on 02-26-2025 Urobilinogen (U) [Mass/Vol] Normal mg/dL Normal [facility] X-ray reportOrdered By: Phil Harper on 02-26-2025 Study report [facility] Main [place] [address] [place] [address] XRay Report Signed Patient: Dyan Harrell MR#: [id number] : 1960 Acct:[id number] Age/Sex: 64 / M ADM Date: 5 Loc: ER Room: Type: [facility] ER Attending Dr: Copies to: Melody Siddiqi APRN~ Ordering Provider: Melody Siddiqi APRN Date of Service: 02/26/25 XR/XR chest 1V portable: WEAKNESS Plain film chest Single view HISTORY: Weakness COMPARISON: None FINDINGS: SUPPORT DEVICES: None POSTSURGICAL CHANGES: Cervical spine fixation hardware HEART: Within normal limits PULMONARY KAYLYNN: Within normal limits MEDIASTINUM: Unremarkable LUNGS AND PLEURA: No acute lung process, pleural effusion or pneumothorax identified. BONY STRUCTURES: Intact ADDITIONAL FINDINGS None XR/XR chest 1V portable IMPRESSION: No acute process. Impression dictated by: Herman Harper M.D. 02/26/2025 4:52 PM Dictation Location: [place] [address] Transcribed By: [facility] 02/26/25 8410 Dictated By: Herman Harper DO 02/26/25 6192 Signed By: 02/26/251651 [facility] XR chest 1V portableon 02-26 XR chest 1V portable [facility] Main [place] [address] [place] [address] XRay Report Signed Patient: Dyan Harrell MR#: [id number] : 1960 Acct:[id number] Age/Sex: 64 / M ADM Date: 02/26/25 Loc: ER Room: Type: [facility] ER Attending Dr: Copies to: Melody Siddiqi APRN Ordering Provider: Melody Siddiqi APRN Date of Service: 02/26/25 XR/XR chest 1V portable: WEAKNESS Plain film chest Single view HISTORY: Weakness COMPARISON: None FINDINGS: SUPPORT DEVICES: None POSTSURGICAL CHANGES: Cervical spine fixation hardware HEART: Within normal limits PULMONARY KAYLYNN: Within normal limits MEDIASTINUM: Unremarkable LUNGS AND PLEURA: No acute lung process, pleural effusion or pneumothorax identified. BONY STRUCTURES: Intact ADDITIONAL FINDINGS None XR/XR chest 1V portable IMPRESSION: No acute process. Impression dictated by: Herman Harper M.D. 02/26/2025 4:52 PM Dictation Location: [place] [address] Transcribed By: [facility] 02/26/251651 Dictated By: Herman Harper DO 02/26/251646 Signed By: 02/26/251651 Normal [facility] aPTT in Platelet poor plasma by Coagulation assayOrdered By: Melody Siddiqi on 02-26-2025 aPTT Coag (PPP) [Time] 25.3 s 25.1-36.5 [facility] Comment on above: A hematocrit value g reater than 55% may lead to inaccurate results in coagulation testing. Patients having hematocrit values >55% require a special collection tube for coagulation studies. Please contact the laboratory at [phone] for redraw instructions. pH of Urine by Test stripOrd ered By: Melody Siddiqi on 02-26-2025 pH (U) 6.0 [pH] Normal 5.0-9.0 [facility] Comment on above: Order Comment: Name Collection Type:: Clean-Voided Midstream Performed By: #### C UU #### [facility] [address] Consent Formson 02-25-2025 Consent Forms [id number] Record[facility] 02-25-2025 Outside Records [id number][facility] Tele[facility] Stripson Telemetry Strips [id number][facility] Anest[facility] Noteon 02-24-2025 Anesthesia Note Patient: GENNA HARRELL Age: 64 years Sex: MALE : 1960 Associated Diagnoses: None Author: Deniz Tyson DO Postoperative Information Post Operative Note: Post Anesthesia Care Unit. Anesthetic utilized: General. Physical Examination VSS. See nursing flowsheet for vital sign measurements. General: No acute distress. Respiratory: Respirations are non-labored. Cardiovascular: Stable hemodynamics.. Neurologic: Alert, Oriented. Review / Management Result Review Lab results 02/24/2025 8:52 EDT Glucose, POC 144 mg/dL [place] 02/24/2025 7:03 EDT Glucose, POC 185 mg/dL MI 02/24/2025 6:16 EDT Glucose, POC 184 mg/dL MI Condition: Stable. Assessment Anesthetic outcome No anesthetic complications noted. Adequate pain relief. No Complaint of nausea and vomiting. Plan Transfer/ Discharge: Patient can be discharged from PACU when criteria met. Condition stable. [Electronically Signed on: 02/24/2025 08:56 EDT] Deniz Tyson DO [Verified on: 02/24/2025 08:56 EDT] Deniz Tyson DO [facility] Anesthesia Note Patient: GENNA HARRELL Age: 64 years Sex: MALE : 1960 Associated Diagnoses: None Author: Deniz Tyson DO Preoperative Information Anesthesiologist scheduled: Deniz Tyson DO Time of Last Intake: > 8 hours. Anesthesia history: Patient history: No prior anesthesia problems. Family history: No prior anesthesia problems. Re-evaluation prior to induction: Completed. Initial evaluation reviewed: No significant interval change. Review of Systems Constitutional: No fever, No chills. Respiratory: No shortness of breath. Cardiovascular: No chest pain. Gastrointestinal: No heartburn. Neurologic: Alert and oriented X4. ROS reviewed as documented in chart Health Status Allergies: Allergic Reactions (All) No known allergies Current medications: (Selected) Inpatient Medications Ordered Dextrose 50% injection: 12.5 gm = 25 mL, IV Push, Once, PRN: Other (see comment) LR 1,000 mL: 20 mL/hr, IV Lidocaine 1% injectable solution: 0.1 mL, ID, Once, PRN: Other (see comment) Prescriptions Prescribed Ultram 50 mg oral tablet: 50 mg = 1 tab(s), Oral, q6hr (int), PRN: as needed for pain, 10 tab(s), 0 Refill(s) Documented Medications Documented Farxiga 10 mg oral tablet: 5 mg = 0.5 tab(s), Oral, Daily, 0 Refill(s) Klor-Con M20 oral tablet, extended release: 20 mEq = 1 tab(s), Oral, Daily, 0 Refill(s) Rybelsus 14 mg oral tablet: 14 mg = 1 tab(s), Oral, Daily, 0 Refill(s) calcium carbonate 1000 mg oral tablet, chewable: 1,000 mg = 1 tab(s), Oral, Daily, 0 Refill(s) ezetimibe 10 mg oral tablet: 5 mg = 0.5 tab(s), Oral, Once a day (at bedtime), 0 Refill(s) hydroCHLOROthiazide 50 mg oral tablet: 50 mg = 1 tab(s), Oral, Daily, 0 Refill(s) metFORMIN 500 mg oral tablet: 500 mg = 1 tab(s), Oral, BID, 0 Refill(s) pravastatin 20 mg oral tablet: 20 mg = 1 tab(s), Oral, Once a day (at bedtime), 0 Refill(s) tamsulosin 0.4 mg oral capsule: 0.4 mg = 1 cap(s), Oral, Daily, 0 Refill(s) Problem list: All Problems Diabetes / SNOMED CT 333820749 / Confirmed Kidney stones / SNOMED CT 199500482 / Confirmed, Active Problems (2) Diabetes Kidney stones Histories Family History: CA - Lung cancer Mother Thyroid cancer Grandparent Sister Procedure history: ESWL of kidney (26795945) on 02/03/2025 at 64 Years. Comments: 02/03/2025 11:46 EDT - Nickie Wright RN bilateral ESWL (extracorporeal shockwave lithotripsy) of ureteric calculus ([id number]). Appendectomy (269780988). Cervical vertebral fusion (03446091). Tonsillectomy (755329992). Cholecystectomy (98696396). Colonoscopy (852628410). Social History Electronic Cigarette/Vaping Assessment Electronic Cigarette Use: Never. Alcohol Assessment Use: Current. 1-2 times per week Tobacco Assessment Former tobacco user Tobacco Use:. 1ppd per day. Comment: Quit 10 years ago Substance Abuse Assessment Substance use: Never. Nutrition/Health Assessment Caffeine intake amount: 1/2 cup. . Social & Psychosocial Habits Alcohol 02/17/2025 Alcohol Use: Current Frequency: 1-2 times per week Nutrition/Health 02/17/2025 Caffeine intake amount: 1/2 cup Substance Use 02/17/2025 Substance use: Never Tobacco 02/17/2025 Smoking tobacco use: Former tobacco user Number used per day: 1ppd Comment: Quit 10 years ago - 02/17/2025 13:14 - Melissa Canas RN Electronic Cigarette/Vaping 02/17/2025 Electronic Cigarette Use: Never . Physical Examination Vital Signs 02/24/2025 5:55 EDT Systolic Blood Pressure 119 mmHg Diastolic Blood Pressure 79 mmHg BP Site Right arm BP Method Automatic 02/24/2025 5:50 EDT Temperature Temporal 36.4 DegC Peripheral Pulse Rate 85 bpm Respiratory Rate 16 br/min Systolic Blood Pressure 123 mmHg HI Diastolic Blood Pressure 84 mmHg HI BP Site Left arm SpO2 100 % Oxygen Therapy Room air Airway: Mallampati classification: II (soft palate, fauces, uvula visible). Distance: Thyromental, Adequate. Temporomandibular joint mobility: Good. Mouth: Adequate opening, Teeth ( wnl ). Neck: Full range of motion. Respiratory: Lungs are clear to auscultation. Cardiovascular: Normal rate, Regular rhythm. Neurologic: Alert, Oriented, No focal deficits. Review / Management Results review: Lab results 02/24/2025 6:16 EDT Glucose, POC 184 mg/dL MI 02/17/2025 13:00 EDT Urine Culture Auth (Verified) See Report 02/03/2025 9:58 EDT Glucose, POC 205 mg/dL MI 02/03/2025 9:22 EDT Glucose, POC 208 mg/dL MI 01/07/2025 10:56 EDT WBC 6.7 x103/mcL RBC 4.96 x106/mcL Hgb 14.5 gm/dL Hct 41.6 % MCV 84 fL MCH 29 pg MCHC 35 gm/dL RDW 13.4 % Platelet 351 x103/mcL MPV 7.7 fL Auto Neut % 54 % Auto Lymph % 31 % Auto [place] % 9 % Auto Eos % 4.6 % HI Auto Baso % 1.0 % Neut Abs# 3.6 x103/mcL Lymph Abs# 2.1 x103/mcL [place] Abs# 0.6 x103/mcL Eos Abs# 0.3 x103/mcL Baso Abs# 0.1 x103/mcL Sodium Level 135.0 mmol/L LOW Potassium Level 3.4 m (more content not included)... Normal [facility] Inpatient Patient Summaryon 02-24-2025 [place] [address] Patient Discharge Instructions Name: DYAN HARRELL : 1960 Patient Address: [address] [place] [address] Primary Care Provider: Name: MAREK SANTIAGO JR. After you are discharged if you find you have any questions, please, call [phone] ext [phone] to speak to a nurse. Discharge Diagnosis: 1:BPH with urinary obstruction; Other obstructive and reflux uropathy Prescription Information: If you have been given a prescription for narcotics, seek immediate medical attention if you have any difficulty breathing or any sudden status changes such as confusion and sleepiness. If you or anyone you know is experiencing suicidal thoughts, mental health, alcohol and/or drug addiction problems; contact the [facility] 29/01 Crisis Hotline -Text 4HFVL to 214663. If you received any narcotics, sedation, or [...] business decisions or sign any legal documents [facility] would like to thank you for allowing us to assist you with your healthcare needs. The following includes patient education materials and information regarding your injury/illness. DYAN HARRELL has been given the following list of follow-up instructions, prescriptions, and patient education materials: Follow-up Instructions With: Address: When: Derik Marrero MD With: Address: When: Derik Marrero MD Medications During the course of your visit, your medication list was updated with the most current information. The details of those changes are reflected below: New Medications [id number], [address], [place] [id number], [phone] cephalexin (Keflex 500 mg oral capsule) 1 cap(s) Oral (given by mouth) every 8 hours.. Refills: 0. Medications That Were Updated - Follow Below Instructions [id number], [address], [place] [id number], [phone] Updated: traMADol (Ultram 50 mg oral tablet) 1 tab(s) Oral (given by mouth) every 6 hours as needed as needed for pain. Refills: 0. Other Medications Updated: traMADol (Ultram 50 mg oral tablet) 1 tab(s) Oral (given by mouth) every 6 hours as needed as needed for pain. Refills: 0. Medications to Continue That Have Not Changed Other Medications calcium carbonate (calcium carbonate 1000 mg oral tablet, chewable) 1 tab(s) Oral (given by mouth) every day. dapagliflozin (Farxiga 10 mg oral tablet) 0.5 tab(s) Oral (given by mouth) every day. ezetimibe (ezetimibe 10 mg oral tablet) 0.5 tab(s) Oral (given by mouth) once a day (at bedtime). hydroCHLOROthiazide (hydroCHLOROthiazide 50 mg oral tablet) 1 tab(s) Oral (given by mouth) every day. metFORMIN (metFORMIN 500 mg oral tablet) 1 tab(s) Oral (given by mouth) 2 times per day. potassium chloride (Klor-Con M20 oral tablet, extended release) 1 tab(s) Oral (given by mouth) every day. pravastatin (pravastatin 20 mg oral tablet) 1 tab(s) Oral (given by mouth) once a day (at bedtime). semaglutide (Rybelsus 14 mg oral tablet) 14 [...] keep with you. calcium carbonate (calcium carbonate 1000 mg oral tablet, chewable) 1 tab(s) Oral (given by mouth) every day. cephalexin (Keflex 500 mg oral capsule) 1 cap(s) Oral (given by mouth) every 8 hours.. Refills: 0. dapagliflozin (Farxiga 10 mg oral tablet) 0.5 tab(s) Oral (given by mouth) every day. ezetimibe (ezetimibe 10 mg oral tablet) 0.5 tab(s) Oral (given by mouth) once a day (at bedtime). hydroCHLOROthiazide (hydroCHLOROthiazide 50 mg oral tablet) 1 tab(s) Oral (given by mouth) every day. metFORMIN (metFORMIN 500 mg oral tablet) 1 tab(s) Oral (given by mouth) 2 times per day. potassium chloride (Klor-Con M20 oral tablet, extended release) 1 tab(s) Oral (given by mouth) every day. pravastatin (pravastatin 20 mg oral tablet) 1 tab(s) Oral (given by mouth) once a day (at bedtime). semaglutide (Rybelsus 14 mg oral tablet) 14 Milligram Oral (given by mouth) every day. tamsulosin (tamsulosin 0.4 mg oral capsule) 1 cap(s) Oral (given by mouth) every day. traMADol (Ultram 50 mg oral tablet) 1 tab(s) Oral (given by mouth) every 6 hours as needed as needed for pain. Refills: 0. traMADol (Ultram 50 mg oral t (more content not included)... Normal [facility] MAGR Intraoperative Recordon 02-24-2025 MAGR Intraoperative Record MAGR Intra-Op Record Summary Primary Physician: Derik Marrero MD Finalized Date/Time: 02/24/25 08:43:00 Pt. Name: DYAN HARRELL DANTE /Sex: 1960 MALE Med Rec #: [id number] Physician: Derik Marrero MD Financial #: [id number] Pt. Type: D Room/Bed: / Admit/Disch: 02/24/25 05:41:57 - Institution: Case Times MAGR Entry 1 Patient In Room Time 02/24/25 07:45:00 Out Room Time 02/24/25 08:31:00 Anesthesia Start Time 02/24/25 07:49:00 Stop Time 02/24/25 08:34:00 Surgery Start Time 02/24/25 08:04:00 Stop Time 02/24/25 08:24:00 Last Modified By: Rianna Lucero RN 02/24/25 08:42:37 Case Attendance MAGR Entry 1 Entry 2 Entry 3 Case Attendee Derik Marrero MD, Christopher J DO Long, Barbara RN Role Performed Surgeon - Primary Anesthesiologist of Plastics Sheet Finishing Press Operator Record Time In 02/24/25 08:00:00 02/24/25 07:45:00 02/24/25 07:45:00 Time Out 02/24/25 08:24:00 02/24/25 08:31:00 02/24/25 08:31:00 Procedure Cystoscopy PVP Cystoscopy PVP Cystoscopy PVP Greenlight Laser Greenlight Laser Greenlight Laser Prostate Prostate Prostate Last Modified By: Rianna Lucero RN, Barbara RN Long, Barbara RN 02/24/25 08:32:01 02/24/25 08:32:01 02/24/25 08:32:01 Entry 4 Entry 5 Case Attendee Afshin Goodwin Regina CSFA TECHNOLOGIST INFECTIOUS DISEASE Role Performed Scrub Personnel Scrub Personnel Time In 02/24/25 07:45:00 02/24/25 07:45:00 Time Out 02/24/25 08:31:00 02/24/25 08:31:00 Procedure Cystoscopy PVP Cystoscopy PVP Greenlight Laser Greenlight Laser Prostate Prostate Last Modified By: Rianna Lucero RN, Barbara RN 02/24/25 08:32:01 02/24/25 08:32:01 General Comments: FORTEC REP Surgical Procedures MAGR Pre-Care Text: A.20 Verifies operative procedure, surgical site, and laterality Im.150 Develops individualized plan of care Entry 1 Procedure Cystoscopy PVP Primary Procedure Yes Greenlight Laser Prostate Primary Surgeon Derik Marrero MD Surgeon Comment CYSTO GREENLIGHT Start 02/24/25 08:04:00 Stop 02/24/25 08:24:00 Anesthesia Type General Surgical Service Urology Wound Class Clean-Contaminated Technique Details Closure Technique N/A Entire procedure No was performed via laparoscope or robotic assistance Last Modified By: Rianna Lucero RN 02/24/25 08:32:17 Post-Care Text: O.730 The patient's care is consistent with the individualized perioperative plan of care General Case Data MAGR Pre-Care Text: A.350.1 Classifies surgical wound Entry 1 Case Information OR MAGR OR 01 Case Level Level 4 Wound Class Clean-Contaminated Specialty Urology ASA Class 3 Diagnosis Preop Diagnosis KIDNEY STONE AND BPH Postop Same As Preop Yes Postop Diagnosis KIDNEY STONE AND BPH Blunt or No Is the procedure No penetrating injury considered occured prior to Emergent/Urgent? the start of the procedure: Last Modified By: Rianna Lucero RN 02/24/25 08:08:33 Post-Care Text: O.760 Patient receives consistent and comparable care regardless of the setting Time Out MAGR Entry 1 Procedure(s) Cystoscopy PVP Greenlight Laser Prostate Time Out Checklist Verifications Team Introductions Yes [...] Surgeon Review Anticipated Blood Yes Expected Case Yes Loss Risk Addressed Duration Addressed Critical and Yes Non-Routine Steps to be Performed Addressed Nurse Review Equipment Yes Fire Risk Yes Checks/Concerns Assessment Addressed Completed and Interventions Performed Diagnostic and n/a Sterilization n/a Radiological Test Concerns Addressed Results Displayed are Appropriate and Labeled Other Concerns n/a Addressed Time Out Derik Marrero MD, Time Out Time 02/24/25 08:03:00 Participants Deniz Tyson DO, Rianna Lucero RN, Afshin Goodwin Last Modified By: Rianna Lucero RN 02/24/25 08:08:53 Patient Positioning MAGR Pre-Care Text: A.280 Identifies baseline musculoskeletal status Im.40 Positions the patient Im.80 Applies safety devices Entry 1 Procedure Cystoscopy PVP Body Position Low Lithotomy Greenlight Laser Prostate Left Arm Position Extended on padded arm Right Arm Position Extended on padded arm board board Left Leg Position Secured in Stirrup Right Leg Position Secured in Stirrup Press Points Checked Yes Positioning Device Safety Strap, Stirrups Outcome Met (O.80) Yes Last Modified By: Rianna Lucero RN 02/24/25 08:09:02 Post-Care Text: E.290 Evaluates musculoskeletal status O.80 Patient is free from signs and symptoms of injury rela (more content not included)... [facility] PACU Record [facility] [place] [place] PACU Record [facility] Primary Physician: Derik Marrero MD Finalized Date/Time: 02/24/25 09:10:36 Pt. Name: DYAN HARRELL/Sex: 1960 MALE Med Rec #: [id number] Physician: Derik Marrero MD Financial #: [id number] Pt. Type: D Room/Bed: / Admit/Disch: 02/24/25 05:41:57 - Institution: PACU Case Times MAGR Entry 1 In PACU I 02/24/25 08:33:00 Discharge from PACU 02/24/25 09:10:00 I Last Modified By: Uzma Beasley RN 02/24/25 09:10:35 Finalized By: Uzma Beasley RN Document Signatures Signed By: Uzma Beasley RN 02/24/25 09:10 [facility] MAGR Postoperative Recordon 02-24-2025 MAGR Postoperative Record MAGR Phase II Record Summary Primary Physician: Derik Marrero MD Finalized Date/Time: 02/24/25 10:10:04 Pt. Name: DYAN HARRELL/Sex: 1960 MALE Med Rec #: [id number] Physician: Derik Marrero MD Financial #: [id number] Pt. Type: D Room/Bed: / Admit/Disch: 02/24/25 05:41:57 - Institution: Phase II Case Times MAGR Pre-Care Text: Patient is free from s/s of injury. Patient remains free from compromised physical state related to surgery or anesthesia. Patient comfort maintained. Patient/family verbalize understanding of discharge instructions. Entry 1 In PACU II 02/24/25 09:11:00 Discharge from PACU 02/24/25 10:09:00 II Last Modified By: Uzma Beasley RN 02/24/25 10:10:02 Post-Care Text: The patient remains free from s/s of injury. Patient's vital signs stable, circulation maintained, return to preop mental and physical status, opsite/dressing intact, minimal or absent nausea and vomiting, tolerates po intake. Patient verbalizes adequate pain control. Patient/family express understanding of discharge instructions. Finalized By: Uzma Beasley RN Document Signatures Signed By: Uzma Beasley RN 02/24/25 10:10 [facility] MAGR Preoperative Recordon 0 02-24-2025 MAGR Preoperative Record MAGR Pre-Op Record Summary Primary Physician: Derik Marrero MD Finalized Date/Time: 02/24/25 08:07:03 Pt. Name: DYAN HARRELL/Sex: 1960 MALE Med Rec #: [id number] Physician: Derik Marrero MD Financial #: [id number] Pt. Type: D Room/Bed: / Admit/Disch: 02/24/25 05:41:57 - Institution: Pre-Op Case Times MAGR Pre-Care Text: Patient will be optimally prepared for surgery. Patient is free from s/s of injury. Provide information to patient/family related to plan of care. Verify patient allergies. Confirm identity and verify consent before the operative or invasive procedure. Entry 1 Patient Arrival Time 02/24/25 05:49:00 Preop Departure 02/24/25 07:42:00 Last Modified By: Rianna Lucero RN 02/24/25 08:07:01 Post-Care Text: Patient is prepared mentally and physically and is ready for surgery. The patient remains free from s/s of injury. Patient/family express understanding of plan of care and participate in decisions affecting his or her perioperrative plan of care. Allergies documented appropriately. Patient identifiers and consent correct. General Comments: Reviewed for the next 24 hours not to do anything that requires concentration. Denies chest pain, shortness of breath or illnessess. Denies pacemaker/defib. Denies sleep apnea. Finalized By: Rianna Lucero RN Document Signatures Signed By: Rianna Lucero RN 02/24/25 08:07 Normal [facility] POCT Glucose Levelon 025 Glucose [Mass/Vol] 144 mg/dL High [address] [place] [address] Comment on above: Result Comment: OPR_ ID=IN_LIST,TGC FLAG = False Performed By: #### [id number] ####[facility] (DEFAULT)[address] [place] [address] Glucose [Mass/Vol] 185 mg/dL High [address] [place] [address] Comment on above: Result Comment: OPR_ ID=IN_LIST,TGC FLAG = False Performed By: #### [id number] #### [facility] (DEFAULT) [address] [place] [address] Glucose [Mass/Vol] 184 mg/dL [address] Comment on above: Result Comment: OPR_ ID=IN_LIST,TGC FLAG = False Performed By: #### 4 [id number] #### [facility] (DEFAULT) [address] [place] [address] Patient Handouton 02-24-[address] [facility] C Urineon 02-19-2025 C Urine No growth at 2 days. [facility] Comment on above: Performed By: #### [id number] ####[facility] (DEFAULT)[address] [place] [id number] Progress Note - Nurseon 02-06 Progress Note - Nurse PAT review for amandeep adina 02/24/[address] Tyson, no further orders received. [Electronically Signed on: 02/17/2025 14:30 EDT] Melissa Canas RN [Verified on: 02/17/2025 14:30 EDT] Melissa Canas RN [facility] Outside Recordson 02-16-2025 Outside Records [id number]#[id number] [facility] Urine Cultureon 02-15-2025 Bacteria identified Cx Nom (U) ORGANISM: Escherichia coli (ESBL) (O:ESCCOLESBL) [place] Count <10,000 Organism Comments Pure Growth Aerobic GENNA Charge (NMIC56) SUSCEPTIBILITY ORGANISM: O:ESCCOLESBL ANTIBIOTIC INTERPRETATION GENNA Amikacin S <16 Amoxacillin/K Clavulanate S <8 Ampicillin R >16 Ampicillin/Sulbactam I 1616/8 Aztreonam R 16 Cefazolin R >16 Cefepime R >16 Ceftazidime R 4 Ceftazidime/Avibactam S <4 Ceftolozane/Tazobactam S <2 Ceftriaxone R >32 Cefuroxime R >16 Ciprofloxacin S <0.25 Ertapenem S <0.5 Gentamicin S <2 Levofloxacin S <0.5 Meropenem S <1 Meropenem/Vaborbactam S <2 Nitrofurantoin S <32 Piperacillin/Tazobactam S <8 Tetracycline R >8 Tigecycline S <2 Tobramycin S <2 Trimethoprim/Sulfamethoxaz ole R >2 S = SUSCEPTIBLE I = INTERMEDIATE R = RESISTANT BLANK = DATA NOT AVAILABLE, OR DRUG NOT ADVISABLE OR TESTED R* = RESISTANCE DUE TO EXTENDED SPECTRUM BETA-LACTAMASES ESBL = EXTENDED SPECTRUM BETA-LACTAMASE TFG = THYMIDINE-DEPENDENT STRAIN SILVER = BETA-LACTAMASE POSITIVE IB = INDUCIBLE BETA-LACTAMASE. APPEARS IN PLACE OF 'S' WITH SPECIES KNOWN TO POSSESS INDUCIBLE BETA-LACTAMASES. POTENTIALLY THEY MAY BECOME RESISTANT TO ALL B-LACTAM DRUGS. PERFORMED BY: [place] [address] PATHOLOGIST AMMONIA DISTILLER ASTRID HELLER M.D. Normal [facility] Comment on above: Performed By: #### C UU #### [address] Urine cultureOrdered By: Se Ferguson on 02-15-2025 Bacteria identified Cx Nom (U) Escherichia coli (ESBL) Abnormal [facility] Urine Cultureon 02-13-2025 Bacteria identified Cx Nom (U) ORGANISM: Escherichia coli (ESBL) (O:ESCCOLESBL) [place] Count 50,000 Aerobic GENNA Charge (NMIC56) SUSCEPTIBILITY ORGANISM: O:ESCCOLESBL ANTIBIOTIC INTERPRETATION GENNA Amikacin S <16 Amoxacillin/K Clavulanate S <8 Ampicillin R >16 Ampicillin/Sulbactam I 1616/8 Aztreonam R 16 Cefazolin R >16 Cefepime R >16 Ceftazidime R 4 Ceftazidime/Avibactam S <4 Ceftolozane/Tazobactam S <2 Ceftriaxone R >32 Cefuroxime R >16 Ciprofloxacin S <0.25 Ertapenem S <0.5 Gentamicin S <2 Levofloxacin S <0.5 Meropenem S <1 Meropenem/Vaborbactam S <2 Nitrofurantoin S <32 Piperacillin/Tazobactam S <8 Tetracycline R >8 Tigecycline S <2 Tobramycin S <2 Trimethoprim/Sulfamethoxaz ole R >2 S = SUSCEPTIBLE I = INTERMEDIATE R = RESISTANT BLANK = DATA NOT AVAILABLE, OR DRUG NOT ADVISABLE OR TESTED R* = RESISTANCE DUE TO EXTENDED SPECTRUM BETA-LACTAMASES ESBL = EXTENDED SPECTRUM BETA-LACTAMASE TFG = THYMIDINE-DEPENDENT STRAIN SILVER = BETA-LACTAMASE POSITIVE IB = INDUCIBLE BETA-LACTAMASE. APPEARS IN PLACE OF 'S' WITH SPECIES KNOWN TO POSSESS INDUCIBLE BETA-LACTAMASES. POTENTIALLY THEY MAY BECOME RESISTANT TO ALL B-LACTAM DRUGS. PERFORMED BY: [place] [address] PATHOLOGIST AMMONIA DISTILLER ASTRID HELLER M.D. Normal [facility] Comment on above: Performed By: #### C UU #### [address] Urine cultureOrdered By: Se Ferguson on 02-13-2025 Bacteria identified Cx Nom (U) Escherichia coli (ESBL) Abnormal [facility] Coding Summaryon 02-09-2025 Coding Summary HTMLBase 64 BfjgelehSBz8nEw+PGhlYWQ+PE 2WOLYkA45jaTZtwV4cI1QDRUqI JujhJHHVTCuNTkJqyuHsUN3lwG NjZXJu IC8+WT0wTTHvZzhqpWMkm8J7gC X0M38lcn8fLApxyBD3OVGmFeVi dyfie2baiUh7MKkqAuheLvSv BIVbcG01BDA2iV94Cr37vCYgnX Lzk9xujSz8BqOpLXByGHE7gBqu PCrlk8AbBIXxO40tzWNit4O7 YBFhxBobcFOiCsCukCI3rT8yMH bjqttxb6mabivtKco0pa77xLKa l3Y9pYC6X6ZrxmP6XSBuqXAf VqdfyGSLaL8kenveb0ffwpxcKd XwZBTgVPh2MMj3ZTErwTbdTtAi ZS29BST7MQVuatNsB0EvAGRr dOwnKsE5g4F2Np4FT2OWHtbtV1 VNTUFSWTwvdGQ+YS53ee54Y6Cw DpmpVyg6NKYpVLT4eUP3qN4h FPGcHNxod6B4qSM9O7WwwdUlag 2aa6dxVNEjPSqmK35ogDMht5U1 VGHmbSC5DINqyNkjUxBabI50 Oyc+HRQxtXmjw2HfUjmgx2wak4 ztlGp2ZevmDFBjmaCzpOxsYDW4 d8WqIt4zWAHblJY5xIW0jH9w HlNjXnV8ELsiO209RzScqJKaZs bjN36pT1SkuQL+EENdVqx2WTGw mDodJD6lG0HvBUOmsssdxSFd rPtrSH8mXNCvnjxgLIXyxV2oWY JaC6w4IiFdMnG3NNhuM1NkXCNs rbpmFm36lR4aRvItZqZ2DRnk W6ZgcnV5GNDhyTYeLReyFOY1F7 3ok9X1IKKsKWWlHFM7kIS6kT6i bGlnbjogbGVmdDsgdmVydGlj DKdbXLmhP006DONjhZeuWjReGV luZyBEYXRlOiAgMDgvMDQvMjAy NTwvdGQ+XPZlLWM5fFkrBMVi vTXhMLwhAi1opDxzeQswSK6hIQ GusavpPCZzcJ3vMYXxjWDsmRca SA1iAROobqxox441UzFxQLW6 OTZubSQvQ3LirC2tNeSkAPQlER DhH7DefUFkUShbL449BGybNoU2 UDZngnIuX9SsQPDpsEcpOgV6 h0A1Ec9Bf8RnabizV1EsfIMuNl NmTkqpHBx4E5WdOfkyxTQ+PC90 FOCfUN31ITu1MAK7dRorSLax SPIuI9ZciA6pCmMgTMZvVAQeQa c+PHRhYmxlIHdpZHRoPScxMDAl NbYoqHotDT2vFf4qQDQlZVVz jGcdbLOvGsYjs1ujAOVdRGnuVI 9nmGrsU0BvaUN2OTEqb3o3Bs73 V67dQ5WdoPQ+ZYCfqSF5gDA3 bO2vYjCwMzN9KWstG904VcVefU QtSsrry3sym2zifVp4DuV9EQTh igCwhIpmDIX8y3MhTl63D51j IHdpZHRoPSIxNSUiIHZhbGlnbj 4reS2gFx9+EIFqbSY2lLL9jE1o RnUgNlC4JOuqX456YcTmuEQw Eqvop9acb4clxOl0CyYtMUBdze LauWinEDP9q4UcOr33M4ZxpLxm s8HaWdx7ab51vOAed2R8qOV0 L3XuJWVewsvgmYMbaBnkQN2aCF QxsmarSDWkoN9dKDOaV2m9EpTm VwO3HWmfD6PrzbD9IFAlcBDj SSFxnWENqO3zraqxp9uzygwhDn FiBMIzCVh2WBm4DVXnkYvjYdVh SCC9OhF3YCH0hSFifI8dcUqe whymcD1eMfh+CFO2jYXurAKINS 1lOjwvdGQ+MGIvZAC8lRlcYRiu FHAppH0lXIPtL8z1GmVzEiU3 RTtoG0NttvO4EDFwbMDoKQIoaU CYeH1xfzroy5qwtmsaWvRlESCr GNj7MJy3NIPkwTsiMmFdXHO9 GfH6MAK1hLAzaT9jfVwhjixrwZ 9wOyc+PxtpwUvsVEZ8WPp7Q0Lu Hhq5BUDocSfwGN9iwFJcQCmq Nn1jpXdguNywMT2jIZRuuhqrj8 94NfCis9bvVYHuwNOzFDvrKUG0 T93th1B8RPWtEVVzUFS2zUC0 eL6aqMgnlsllmVKooZvmmpDmnM wjPOlyICnqM674IOPxnAwrKkUe WWx2B7WiXai6IPXpmZwpYP3m gVLmQFniMo6nnGbmhVtaMD9wOZ Lxvhhic383RsLng4xiCMAgeEWd NAsvAMI1J69jv8N3MIMcBQCa ZZZ0aEI4mV2miQrqfembyFJzkT rgwsOedOguPKwwYGzyD776GAKm zIdvKpFezUs8D7YvLar2MYAf dXlcVD1iwFFtZKkpUx7fbUqdwD meAP0yVQTeakgdf785LzYuj1cj QGFdeJTiIYkuEKN2X09gw7M1 VRImSWEtGOS6fED6iE6qjByxsp ogbGVmdDsgdmVydGljYWwtYWxp F086IYDhoPhxReIyhRuidwGx ZJmrCTb1Y2JdRdcngIR+PC90YW XkJI36eZKlbMNdw3bpsZy1PlIs KTKjDKJ6sWedTKjdy8LjBBJt A83ozWIqq0F9CZAorZgqwTKmCv EivZO8mJ9qMSuwgylhn4ouumdu Bqhaq4fgin56lZ92J30uHKjb BAQxJMKlCKNdJPMkmGqzcz0sgG 9wIi8+OOQkgWN7iGO0tE2zUGGq ZbR8AMluW225KaYkwSHsCrrd s0uds3wdaLk5XkL5DHDwfqEguG snCJS0h7TkMj63L95zWOzxBSCw PBJhSGNlZWOzeMrtnf7ceA4t Ii8+SNYskGL7oYA7cQ4eFsPpBj U2KXzmA100RjHizJOeQnuuS11u L4KkwQV+GPNsXgz2CORckJbt QN7kvJOcOZhyJu4tXNL1QcAbRy WvLTkqE0IvUJGmontsfhxwlQY8 WTPlATBmnA01Br9tbWafJISk tCZCnS6tfwytm3nbdpfmZcQfST GiAVm0LAj6YKAdgCidLsDcORN0 TeR4PCH9lAFtgQ9iaBwrvnrx oF7hA7UrKEJfummoLt00cH3mRn RbDwI9SBsyMkh+H0jZQLvGYMSR SUNIQUVMIFJBWTwvdGQ+PHRk BOS8gOqnGLjgDGAbmJ3xTOQeZ9 r3FcXvDuV7CYqsP2KzYEQgxwej Ax68uD2rNzLnAhS7GPnaQ5Tl yrM6ATTvtWNfMUitYRE8T80uu4 S5ZWJcYIXyLXE1uSI8sK6wvDiz bjogbGVmdDsgdmVydGljYWwt OVyjO617QAJlxOhsQqD6JtRuRa V0BIr2O1BxTny9NLUxzFuwCL1f bNTrYFdaEl9vzTmqmUhpZP0q PJHhnllsAYOhiG1aFTMsjQTonM agUP0lJOPdzlehi005ZmCrMJI4 BOSleJHeW7SfiW5wPjRzRRMq REDmL2XnoYLwAVbpW910SFptEf Y2NKAngaNbU2HhIZHanAfiIcM5 s1F6Sj91VoIVPJXrrwjizYV+ IKDxTSA8nIwiPRnpPDYvkL4hQL AdG6j4MgMzInP5BFjeW2YjZCJq zgjlBc13wM5pQbItFeF3EQim R7WciwA3YTDqzYFlJQapKJR6V9 7ba7D2IWEfGFTpMMX5aHN0cA5y bGlnbjogbGVmdDsgdmVydGlj PFliCQyoG751AXUedEhpIl6WPA P1V3UfMhs5OHHurQezFF4gpSOa RSuaNd9yvTauvEhjJR2wUILi xhokFZKpzJ0sRBHanBXpvXvgNM 1fBUPerillk308NuMrRUZ8IMXm vZNmY2QdwG6pPvEwLTGnJNDr J2PusNTcFBdaP241ZQxwRsC8SL ZjzcYvT7NfETRebMuzQnI6t2P1 Yj1AAPoqF2PnK8KpyJtnlNP+ HQ71lv77F2SnXqlmNhj7XKIzFD M9fSB0zI5jQSTuINhji2Z6jFF3 I9ModlVkno0uy7zhEDQvYGpz H24wgXXso7L1MJDgvTJ9JLObyU xlDtRuxC08Yal+PJBvfEcmj1Wf Tivjj1gcw5voaUj4SpMaJQOu juEyiCgwPDD5b6ArDx49O79rLW qzHZRyBBCxFNZlEFQeeViqvo0m xD5yWv5+TIXtcDM7iZH8fB3m UbNfWmZ7UChlF392AnXqzXHzLe qlg0isa4qxqJe0VxFcMWPydgRk qCiyLCY0p3LvMo40U9KsgVeo l1RrRvd3tn34mUVwy0B2cWB8V9 BuHGYzazcqsXVezHexRT4vPFLh nvwtZNZwdK3tIBAaW7s1TpIp NnA5PIjzE2CdsuC0WPRmgZIuBK FyfHNJtV7ygxiyx3cgudgcSiRg CSMaMBa1NWl4TMWspQtcXfAd GXT5SoK9ESH1oNCglK1cpSahwi yvoZ1sEjj+SHi9n1bgeWLfRJ8v mXY7FU90FS40fMLrf4N2gQL6 K0OeKWLhlvbxquxokLT1RPNyQW BaqU12Ra9uoIecTs0hXHVrKBZ9 AJNrvFDaX8RugK5dPfScKDTq BJLgC1RwvPNrPXsjV774PKfmHu Y0DXAhnbJzQ8OnOBCeaPfrMlO8 l6Z7Ns2IHX11OF50ZC16qOJp o4W2hFS1B2KnHJGjredqcagxkH B7HUQzLUOrdU58Lm0tqNwkQc8i CAZcBMT8ZSEdfJHhL0EhgT2c LcEuHVPcZPSnE9KihOMmAZwyR1 42URowNuF2YYDebeMzI5YnIIQq wKspOuR8q0Z3Kf4SOe74OF96 YN69iVApq9Z9aYK9Y3XqBBZejq uobjntjPP4GVQcXUSzwM39Jz5b rPwfGv8dXRJbCEB5CLBakZIt F3KkcO6nXtVhJZMhTSLpV5LgzV KhXMjvG161FEtqAoK7JMZffwQn I7DjTXRnaIsgEtB8d6Q4At8N CVjoiuh1M2BuJzcqeAH+PC90YW TzRM25uSXbcEZpj4ykeWj7NtXw VANsZWA9cCwlJKmqh9FuFAYh Y29 (more content not included)... [facility] Provider Orderson 02-06-2025 Provider Orders [id number] 02-04-2025 Consent Forms [id number]ordon 02-04-2025 MAGR Intraoperative Record MAGR Intra-Op Record Summary Primary Physician: Derik Marrero MD Finalized Date/Time: 02/04/25 11:18:12 Pt. Name: DYAN HARRELL /Sex: 1960 MALE Med Rec #: [id number] Physician: Derik Marrero MD Financial #: [id number] Pt. Type: D Room/Bed: / Admit/Disch: 02/03/25 [...] Role Performed Surgeon - Primary Anesthesiologist of Plastics Sheet Finishing Press Operator Record Time In 02/03/25 10:30:00 02/03/25 [...] RN Role Performed Scrub Personnel Scrub Personnel Plastics Sheet Finishing Press Operator Time In 02/03/25 10:30:00 02/03/25 10:30:00 02/03/25 11:21:00 Time Out 02/03/25 11:41:00 02/03/25 11:41:00 02/03/25 11:41:00 Procedure Extracorporeal Shock Extracorporeal Shock Extracorporeal Shock Wave Wave Wave Lithotripsy(Bilateral) Lithotripsy(Bilateral) Lithotripsy(Bilateral) Last Modified By: Rianna Lucero RN, Diane RN Kokinda, Diane RN 02/03/25 11:44:14 02/03/25 11:44:14 02/03/25 11:44:14 General Comments: ADRIA GONSALES-JENN REP Surgical Procedures MAGR Pre-Care Text: A.20 [...] Lucero RN, Afshin Goodwin Truitt, Regina CSFA TECHNOLOGIST INFECTIOUS DISEASE Last Modified By: Rianna Lucero RN 02/03/25 [...] Additional Patient (more content not included)... Normal [facility] Anesthesia Noteon 02-03-2025 Anesthesia Note Patient: GENNA HARRELL Age: 64 years Sex: MALE : 1960 Associated Diagnoses: None Author: Gwyn Keith MD Postoperative Information Post Operative Note: Operative Day. Anesthetic utilized: Monitored anesthesia care. Health Status Allergies: Allergic Reactions (All) No known allergies Problem list: All Problems Diabetes / SNOMED CT 749392917 / Confirmed Kidney stones / SNOMED CT 492333968 / Confirmed Physical Examination Vital Signs (last [...] on: 02/03/2025 11:52 EDT] Gwyn Keith MD [facility] Anesthesia Note Patient: GENNA HARRELL Age: 64 years Sex: MALE : [...] list: All Problems Diabetes / SNOMED CT 982624611 / Confirmed Kidney stones / SNOMED CT 662868655 / Confirmed Histories Family History: No family history items have been selected or recorded. Procedure history: ESWL (extracorporeal shockwave lithotripsy) of ureteric calculus (8018523802). Appendectomy (227472667). Cervical vertebral fusion (01737082). Tonsillectomy (326101060). Cholecystectomy (53533531). Social History Electronic Cigarette/Vaping Assessment Electronic Cigarette [...] 03 09:15) Resp Rate 18 br/min (FEB 03:15) SBP 119 mmHg (FEB 03:16) DBP 75 mmHg (FEB 03:16) Airway: Mallampati classification: II (soft palate, fauces, uvula visible). Temporomandibular joint mobility: Good. Mouth: Adequate opening, Tongue ( [place], Moist ), Teeth ( unremarkable ). Neck: Supple, Non-tender, Full range of motion, ACDF in past, but still good ROM. Respiratory: Lungs are clear to auscultation. Cardiovascular: Regular rhythm. Neurologic: Alert, Oriented. Review / Management Laboratory Results Plan [place] [employer] (ASA) physical status classification: Class II. Anesthetic Preoperative Plan Anesthesia: Monitored anesthesia care. Anesthetic plan, risks, benefits, and alternatives discussed with the patient and/or family. Patient verbalized understanding. Informed consent was given. Consent was signed by the patient. [Electronically Signed on: 02/03/2025 09:46 EDT] Gwyn Keith MD [Verified on: 02/03/2025 09:46 EDT] Gwyn Keith MD [facility] Inpatient Patient Summaryon 02-03-2025 Inpatient Patient Summary [address] [address] Patient Discharge Instructions Name: DYAN HARRELL : 1960 Patient Address: [address] [place] [address] Primary Care Provider: Name: MAREK SANTIAGO JR. After you are discharged if you find you have any questions, please, call [phone] ext [phone] to speak to a nurse. Discharge Diagnosis: 1:Kidney stones Prescription Information: If you have been given a prescription for narcotics, seek immediate medical attention if you have any difficulty breathing or any sudden status changes such as confusion and sleepiness. If you or anyone you know is experiencing suicidal thoughts, mental health, alcohol and/or drug addiction problems; contact the [facility] 29/01 Crisis Hotline -Text 4HJLO to 122282. If you received any narcotics, sedation, or [...] business decisions or sign any legal documents [facility] would like to thank you for [...] Yes Antibiotics Are (more content not included)... [facility] MAGR Postoperative Record MAGR Phase II Record Summary Primary Physician: Derik Marrero MD Finalized Date/Time: 02/03/25 12:43:29 Pt. Name: DYAN HARRELL DANTE Cheek./Sex: 1960 MALE Med Rec #: [id number] Physician: Derik Marrero MD Financial #: [id number] Pt. Type: D Room/Bed: / Admit/Disch: 02/03/25 [...] Signed By: Nickie Wright RN 02/03/25 12:43 [facility] 02-03-2025 [facility] [place] Preoperative Record MAGR Pre-Op Record Summary Primary Physician: Derik Marrero MD Finalized Date/Time: 02/03/25 10:38:29 Pt. Name: DYAN HARRELL /Sex: 1960 MALE Med Rec #: [id number] Physician: Derik Marrero MD Financial #: [id number] Pt. Type: D Room/Bed: / Admit/Disch: 02/03/25 [...] consent correct. General Comments: Pt arrives to W ambulatory. Denies CP, cough, cold, COVID like sx. Denies pacer/defib, GINGER. Pt is diabetic. Pt verbalizes understanding of post op anesthesia orders including no driving for 24h. Finalized By: Rianna Lucero RN Document Signatures Signed By: Rianna Lucero RN 02/03/25 10:38 Normal [facility] POCT Glucose Levelon 025 Glucose [Mass/Vol] 205 mg/dL High [address] [place] [address] Comment on above: Result Comment: OPR_ ID=[email or web address],TGC FLAG = False Performed By: #### 4 [id number] ####[facility] (DEFAULT)[address] [place] [address] Glucose [Mass/Vol] 208 mg/dL High [address] [place] [address] Comment on above: Result Comment: OPR_ ID=[email or web address],TGC FLAG = False Performed By: #### 4 [id number] ####[facility] (DEFAULT)[address] [place] [address] Patient Handouton 02-03-[address] [facility] XR Abdomen Single View (KUB) on [...] Rox Easley MD 02/04/25 8:43 am Technologist: [facility] Progress Note - Nurseon 01-07 Progress Note - Nurse Pre-op call for surgery made. Pt denies sickness. 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 [...] Signed on: 02/02/2025 13:40 EDT] Nickie Wright [facility] Coding Summaryon 01-15-2025 Coding Summary HTMLBase 64 AyqtjiuaMMl9dMv+PGhlYWQ+PE 3WNJYkB18ltCFdoF0tD4MWOLuR SlqxEKMRAElQIlWaotFhAV5cqH NjZXJu IC8+ZJ4lOLAqXznxiNWaf8W0jX F7V70pfu1dBCrpmQN6HGBqTgOb auhnz4rrkWl1SYjzKccwHmYn JUUebF14COV0yW07Sl95cJOvhP Ijz4nfdYe9ByImCOCnBSZ0wQve OWifd7UbXVKdO66hgPTaj9U1 LXHlmRsemKUmYbCmiJQ4uW0mZC slkinwl8kxhempGvi6pu89pUMk j3D6tTL6Q9HxfbJ7DXXmzBJs EkfaiIDJrP8bqnstu6wlegbzPk IhXNVsMJf5LBn5REXvaMuyBrDo XO35CHP6WJQqhhBgH0WoJOMf rTjaJxY1w0Y1Ff5WN7IPQduhT1 VNTUFSWTwvdGQ+XG51ks80R5Ex YupgXep9VLQnZZB2kOE5eH5c QXTeCLgzw5X7mJB7M8VklkPija 5sl5hgZQDdXLteY61geKKqk1V6 KAHysPN3IQOryEgqWqXtwA36 Oyc+PROyjJwgs8LtGkwes6nks4 tqxAm6IolpERMfpnPlhLrkGIV9 c7HpJc8qRVHrvNE5xWG4qD5a OuEsHvL0EOvyR498KyVqrHToHo wgP12dJ6NnxJN+EPMzTfk8BADq aOhgVS9jE9NuLLVqhpthuBJp fRgwIO9oIRZvwweeDFMueF1iIE CpS5a8CaUjLvY1FLxuL5LdNLNg jhnqTf58kN5gBgTqZcV4RCvc X5YlgmB7WPKojPNwENjyFTG4L4 7eg8C9NOQhYDZhXVD0eGT7mB0z bGlnbjogbGVmdDsgdmVydGlj VGfaRPeaF279PZJpgVxwBtTiZS luZyBEYXRlOiAgMDcvMTAvMjAy NTwvdGQ+YHTjKUD7mKrwOXLz fXNeWCzwCh7xfOqxoBhzRQ4aZQ UjyffaQCEgkR3gSJAxzFLpbDkk KE6jXJYgyombc450CcKtXVM5 GQTzzPFvG0TmjJ0rVcGkICAyPD BwS1KovKSqIWphD594JZaiSaN8 ANNwkmEeD1BaLALovJnxRhC5 k2Z9Hj0Yj2RnleeeQ8RfcQZaUb ByBhemPCf8V7KjKmmiwOG+PC90 LDGeWV90SEi2YCX5iXveIIzx PEEhF6RtqL4zKdLyMEPhEQAyPk c+PHRhYmxlIHdpZHRoPScxMDAl MqIamPzwYH5dDu8bWOUdBPZy aBdhsZJfSiYmf7kzBMIlOPleJA 1otLasA5WszPW0AUNkx0e0Ir72 M63yZ1PdpFH+TKNntDP0hCD1 zX9rXcYjDsD9LQekZ738ZuVdaC WoMvyrd1lzc9gjcTj2OkJ2HVXr yyBdtZoiXLU8s1GjTi74W08p IHdpZHRoPSIxNSUiIHZhbGlnbj 3jzS6mHn1+GAJvzCR2yVK0nR3k GmBaLsX2RTlxH785JdBwaNDs Ytpcu9sqz7ygfZc9NiCyQAUjno QcxRdvAYH7a1IoBm89P0PuhKjb v0YdMgu0fx58uHCef0F0aMA6 M9FoVDOmtvukgYFczHdmQF6bMV JchgqiQYQyoI4iPCXfG2x9BqZy NrE7ZUrfN7NlsbI9KEQouWWy RMZghKKMwC3nuuztm9qbrramKu KxZIMzIIq9MFg3MIJvyVtuSnJs OYG6JoQ8AWY7qGJxfA1rgMlf jrgnjR1fUwu+AEV9mEGllZBTIJ 1lOjwvdGQ+MHByDYC5sEjoQPte DGOfoU6yBPJbA0z7JpNyIxR4 VOyiB9ByiyY6UWRhkRGjFERruM KLlQ9qhvtrb0xnpokmYvTtPWKw ITc0HKy8KMSvqBtwLlPaGKJ6 CzS3RWQ0nGKrvJ5ukItjnyrvkD 9wOyc+FvoluPloZDI0TIp9H5Ki Pmq0OUTinIrqSX7ijXCjIZkl Tp1ixPzgiCvmKV3zFDCsgldyi9 44BqVki4nfFMIiuRSfOUmlOTA4 P05xm8I9LQRmZVRrAJZ4gHT6 pH6zfSloccazjSTbwQuyvrJwuZ amOYphZMsxB782KUVhwWazXeMn SKb9X3GlTay3DQAuzBnfJM9p tIUiYNqdGs3lfEztlCrnJQ4xDB Dvurfkt000LzFsd7yoPEJkcMUj PHnbOYM7P74ov3Y4DADaPBHj ZIP1yDM4bW4gjSocoqvhuGKfxW naglBtzMxeHNtaADozA607HABh vLkvGfNdmZf1B2EyQef3RCPf dXpkJR5gvDZbMGtuWr6niRxjdJ xuJC6xODDhzzavi185OaZpn2it TZUlsVXqSIcfNNY3D16gk2D1 TBDfQQJwYFJ6fXG7wZ6goQybeq ogbGVmdDsgdmVydGljYWwtYWxp S967FRDgmZukWfTnzDzojrKd LRrhDIb4Q5DgJyslsFP+PC90YW YdMC76oHCcfAZqu9hbfGw1NkKl CGPmGWS1jHbjRYgfl2TePHWw S90dhXArt4F0YHXpjCcvoPXwSb VycTR7eF0zJOnkekaxr0cvfbcd Uiktk8enkw35jP96S40hAGmc JSDzWGXcVYUzMKSoqZlnpd6kgJ 9wIi8+YKHepAU5pGU4cW8tDFNq KaM7PVxhG271BlNkqDGhAxoy g0lwv1ehfWx3CzB5TUDqxzEezD glPZJ6g5JcTp21R83wLEprNLOa WHAsQWDqHJXsbEqagl9uyV3h Ii8+RVFctXY2nJS8kU6jFyLiHy E2JFnkP389LdUseFBcCvcjV16h G5KqmPI+LSCwMha0CJTnjKgg SF2noGVtTByrSr8vHHS7FaSbXz JkREnyT2VcSFMfumfhcpuffWB5 ODImFHBxjD71It2hgEywEDFu xBEArV1nassud4wrzylaGeNxTS DmYLi3JSa2WIDqkTpgGpHvFHU7 RwA3ADK1jJJqsW9mqYxhbqmd iV0iI0UoOJZwokksYp41iE8zLd GfHcU3GMreUnc+C3qYIWbFKIYL SUNIQUVMIFJBWTwvdGQ+PHRk LTC3uLclEKlbVNZtgN1fBRCmL7 t1KmOeEoC3TGumF0YhCILswfny Ke35rZ3nSmFeCqZ5GWowB1Nk voF5LXYsgCNdUQebWQX0S67zn2 V5JHBcWPMlNGJ6pAS4rG9tkSze bjogbGVmdDsgdmVydGljYWwt INnuA144XOIfnIniVvF3KcIkYc B4CRa0Z9XxGgl8OIDqtCteLB9y uSYdUOulIu3aeWjyiBqoOH8i JHRzetjdVRFddM4mTZXqtAYonK fuFT6nZYCkquspo385DvPyEXR8 NCAdjIZfW3ZlzV2pOqUhQNXe ITIiY5SvkUWqZLpuX923YQmmNz J6KRLrqsEnW2IpNUUkrNzaHfT4 m3O0In63OdUYSAYuztkomVN+ MGYpHPC1tOyfKXzjMXPgeD7aNJ KaD0q2CjHgQeT6LVaoS3SuZINa baqbTx91uO0uNxMmTuZ1FMjl L4KzmuA5BTKriLJwKUlaYPD3X3 2zy5I9FYXaQKPiYAG1uQB2rV9m bGlnbjogbGVmdDsgdmVydGlj THwtZZpyN833LZClhOktNx0GKU E6P5NtNji0KSHurHtpDN8xxDFv XHirDf9zpOcjzIcbSY1mEBAs djtxEALktN9xUEGeiAHbzJrvLS 3zEQWgljfjl725KnWoSBC0OQBx vGDcM9ApaY7oSrTsWFYdWZCm G3RgqCDtWWtqT525BLzrAbC6IZ OobkTbH2CoILIplDfpGvL0g2F6 Yp8JIRgrzVK+GG96sm88J2Up XvueBll6HEAmCEL4nAU5cX0wZA GvHNpwd6U6xWO9Z0TkjaQlxo3q d0ipPFFoYShmD29qrRGxl8X4 PSEduQD0SEKieWawYoTejB97Pc c+RROtwDrko1FkKxruz1sbg2yc fHp8ThYzDVKvxjWdcYeyOJX8 h6KkAl20Z89fRFcjBLNrQJPyRQ FuCTUjtBslnk6pcV5tYd1+PGNv kHN6eTE6fJ5pBaWkSbS5GHjh C369YyUvxBJbQvvnp2thv5dctU q9VlEcPANuwwCxsVfgWYZ3v8Qj Ps79B6MuzMhqs4BrYly6jr69 xTAfm5H1gCN5P7CeJGZajiousE PbbFysMA9zVOOkocknHVQtaO5l IRBhB4w5KkNlYsJ2ATmaF9Ub dgB5WTAkzZMvVKTsyBLGkF5dcm yzl9brhkcaFhIeYCIbDGh3AMv5 MKElyZmmHrSgQEJ4ShG8QEJ3 kAMsbY5hoRbijhcyoE0eHjb+UG y7s2rbbTEgRM6fgTX3TC03GP43 cSQnl9V9zEL3I3EcZXCykuey fjewtFY6UXMxBHPvwQ84Hj6pqM tjRo9rGOVhWOC8IRGsaRIrO3Wt iE7qBdHbOEUhSIYiB8AhjWZc LWlgZ381LPdpJmI1XHVjoaTyO8 CdRRPswEzbAcS4f1A6Yb9DBL60 LN08OD71dIBhd7G7eLM2I0An CIUyajyvwcoceLS1DHIgCPUomD 02Ky8fdByaIb3gUNInCTN2RBGq yKEkC7DnwL6gOdUhCGDyTMFy I3YojWOgCYorQ939DXwgUlS1XS GaiiJgA4DuUASbpEokUlJ3m5F6 My7HOn02FN34VS37eVMop0O1 aVW2B7XmEETbuzguysxhsSC2TN HmVSLtuM43Ks2nsGbmYd1wTIRm JNP2NNGmeMQcE4QxqX7iAiEk BFHkWNMwY7TftVFtUYexN570AD tbOyA2JWEdpxDqC5KlGJBylUir MzQ8f9W0Ru9LPUoyeti6F2Ml PjwvdHI+WB90PENhXZ28aHGlmC Pgw5afjGq0GoWjTEHzWAU6mMzu SKqcx1QnTPKoR58kfYOxx3A0 IGN (more content not included)... Normal [facility] .Auto Diff 01-07-2025 Auto [place] % 9 % Normal 12 [facility] Comment on above: Performed By: #### 1 [id number], [id number], [id number] #### [facility] (DEFAULT) [address] [place] [address] Baso Abs# 0.1 x10 Normal 0.0-0.2 [facility] Comment on above: Performed By: #### 1 [id number], [id number], [id number] #### [facility] (DEFAULT) [address] [place] [address] 58135 Basophils/100 WBC (Bld) 1.0 % Normal 0.2-2.0 [facility] Comment on above: Performed By: #### 1 [id number], [id number], [id number] #### [facility] (DEFAULT) [address] [place] [address] 22951 Eos Abs# 0.3 x10 Normal 0.0-0.4 [facility] Comment on above: Performed By: #### 1 [id number], [id number], [id number] #### [facility] (DEFAULT) [address] [place] [address] Eosinophils/100 WBC (Bld) 4.6 % High 0.9-4.0 [facility] Comment on above: Performed By: #### 1 [id number], [id number], [id number] #### [facility] (DEFAULT) [address] [place] [address] 44954 Lymph Abs# 2.1 x10 Normal 1.3-2.9 [facility] Comment on above: Performed By: #### 1 [id number], [id number], [id number] #### [facility] (DEFAULT) [address] [place] [address] 51722 Lymphocytes/100 WBC (Bld) 31 % Normal 14-48 [facility] Comment on above: Performed By: #### 1 [id number], [id number], [id number] #### [facility] (DEFAULT) [address] [place] [address] 28944 [place] Abs# 0.6 x10 Normal 0.0-0.8 [facility] Comment on above: Performed By: #### 1 [id number], [id number], [id number] #### [facility] (DEFAULT) [address] [place] [address] 12840 Neut Abs# 3.6 x10 Normal 1.5-9.2 [facility] Comment on above: Performed By: #### 1 [id number], [id number], [id number] #### [facility] (DEFAULT) [address] [place] [address] 12231 Neutrophils/100 WBC (Bld) 54 % Normal 44-88 [facility] Comment on above: Performed By: #### 1 [id number], [id number], [id number] #### [facility] (DEFAULT) [address] [place] [address] 43957 BMP [place] 01-07-2025 eGFR Non AA >60 Invalid Interpretation Code [facility] Comment on above: Performed By: #### 1 [id number], [id number], [id number] #### [facility] (DEFAULT) [address] [place] [address] 13385 eGFR AA >60 Invalid Interpretation Code [facility] Comment on above: Performed By: #### 1 [id number], [id number], [id number] #### [facility] (DEFAULT) [address] [place] [address] 72381 Anion gap [Moles/Vol] 9.4 mmol/L Normal 5.0-19.0 [facility] Comment on above: Performed By: #### 1 [id number], [id number], [id number] #### [facility] (DEFAULT) [address] [place] [address] 59324 Calcium [Mass/Vol] 10.8 mg/dL High 8.9-10.3 [facility] Comment on above: Performed By: #### 1 [id number], [id number], [id number] #### [facility] (DEFAULT) [address] [place] [address] 71473 Chloride [Moles/Vol] 102 mmol/L Normal 101-111 [facility] Comment on above: Performed By: #### 1 [id number], [id number], [id number] #### [facility] (DEFAULT) [address] [place] [address] 35336 CO2 [Moles/Vol] 27 mmol/L Normal 21-32 [facility] Comment on above: Performed By: #### 1 [id number], [id number], [id number] #### [facility] (DEFAULT) [address] [place] [address] 57526 Creatinine [Mass/Vol] 1.07 mg/dL Normal 0.90-1.30 [facility] Comment on above: Performed By: #### 1 [id number], [id number], [id number] #### [facility] (DEFAULT) [address] [place] [address] 73392 Glucose [Mass/Vol] 173.0 mg/dL High 74.0-118.0 [facility] Comment on above: Performed By: #### 1 [id number], [id number], [id number] #### [facility] (DEFAULT) [address] [place] [address] 12178 Osmolality 275 mOsm/L Invalid Interpretation Code [facility] Comment on above: Performed By: #### 1 [id number], [id number], [id number] #### [facility] (DEFAULT) [address] [place] [address] 82096 Potassium [Moles/Vol] 3.4 mmol/L Low 3.6-5.1 [facility] Comment on above: Performed By: #### 1 [id number], [id number], [id number] #### [facility] (DEFAULT) [address] [place] [address] Sodium [Moles/Vol] 135.0 mmol/L Low 136.0-144.0 [facility] Comment on above: Performed By: #### 1 [id number], [id number], [id number] #### [facility] (DEFAULT) [address] [place] [address] Urea nitrogen [Mass/Vol] 16 mg/dL Normal 8-26 [facility] Comment on above: Performed By: #### 1 [id number], [id number], [id number] #### [facility] (DEFAULT) [address] [place] [address] Urea nitrogen/Creatinine [Mass ratio] 14.9 mg/mg Normal 4.6-16.2 [facility] Comment on above: Performed By: #### 1 [id number], [id number], [id number] #### [facility] (DEFAULT) [address] [place] [address] CBC w/ Auto Diffon Erythrocyte distribution width (RBC) [Ratio] 13.4 % Normal 11.5-15.0 [facility] Comment on above: Performed By: #### 1 [id number], [id number], [id number] #### [facility] (DEFAULT) [address] [place] [address] Hematocrit (Bld) [Volume fraction] 41.6 % Normal 34.8-51.9 [facility] Comment on above: Performed By: #### 1 [id number], [id number], [id number] #### [facility] (DEFAULT) [address] [place] [address] Hemoglobin (Bld) [Mass/Vol] 14.5 g/dL Normal 11.8-17.7 [facility] Comment on above: Performed By: #### 1 [id number], [id number], [id number] #### [facility] (DEFAULT) [address] [place] [address] Man Diff? Auto Invalid Interpretation Code [facility] Comment on above: Performed By: #### 1 [id number], [id number], [id number] #### [facility] (DEFAULT) [address] [place] [address] 76567 MCH (RBC) [Entitic mass] 29 pg Normal 24-34 [facility] Comment on above: Performed By: #### 1 [id number], [id number], [id number] #### [facility] (DEFAULT) [address] [place] [address] [id number] MCHC (RBC) [Mass/Vol] 35 g/dL Normal 26-37 [facility] Comment on above: Performed By: #### 1 [id number], [id number], [id number] #### [facility] (DEFAULT) [address] [place] [address] 57746 MCV (RBC) [Entitic vol] 84 fL Normal 81-100 [facility] Comment on above: Performed By: #### 1 [id number], [id number], [id number] #### [facility] (DEFAULT) [address] [place] [address] [id number] Platelet 351 x10 Normal 138-427 [facility] Comment on above: Performed By: #### 1 [id number], [id number], [id number] #### [facility] (DEFAULT) [address] [place] [address] 29846 Platelet mean volume (Bld) [Entitic vol] 7.7 fL Normal 6.3-10.2 [facility] Comment on above: Performed By: #### 1 [id number], [id number], [id number] #### [facility] (DEFAULT) [address] [place] [address] 18523 RBC 4.96 x10 Normal 3.70-5.30 [facility] Comment on above: Performed By: #### 1 [id number], [id number], [id number] #### [facility] (DEFAULT) [address] [place] [address] 81439 WBC 6.7 x10 Normal 3.5-10.5 [facility] Comment on above: Performed By: #### 1 [id number], [id number], [id number] #### [facility] (DEFAULT) [address] [place] [address] Consultation/Specialist Note on 12-16-2024 Consultation/Specialis t Note [id number] Normal [facility] ED Note-Physicianon 03-21-20 ED Note-Physician [id number]#1.00CD:127 [facility] Facesheeton 03-21-2023 Facesheet [id number]#[id number]:127 [facility] Pathology Noteon 03-21-2023 Pathology Note [id number]#1.00CD:127 [facility] Ambulatory Visit Summaryon 0 03-20-2023 Ambulatory Visit Summary DYAN HARRELL DOB:1960 Visit Date:03/20/2023 Ambulatory Visit Instructions Your Care Team Attending Physician - Dyan MASSEY MD Primary Care Physician - MAREK SANTIAGO JR, [...] SIMON, Serafin Mixon Where: [facility] [place] Normal [facility] General Surgery Office/Clini c Noteon 03-20-2023 [...] virus vaccine, live, trivalent 04/23/2019 Recorded Normal [facility] Comment on above: Result Comment: Elec tronically Signed By: BRYSON SIMON, Dyan Montez\Date and Time Signed: 03/20/23 16:23 EDT Operative Reporton Operative Report [id number]#[id number]:127 Normal [facility] AMYLASEon 09-14-2022 Amylase [Catalytic activity/Vol] 89 U/L Normal 25-115 [facility] Comment on above: Performed By: #### L IPA, CMP, VIJI #### [facility] [address] [place] [address] Dr. Hailey Marr CBC AUTO DIFFon 09-14-2022 BASO # 0.1 103/ul Normal 0.0-0.1 [facility] Comment on above: Performed By: #### C BC #### [facility] [address] [address] [address] Hailey Marr Basophils/100 WBC (Bld) 0.6 % Normal 0.2-2.0 [facility] Comment on above: Performed By: #### C BC #### [facility] [address] [address] [address] Hailey Marr EO # 0.2 103/ul Normal 0.0-0.7 [facility] Comment on above: Performed By: #### C BC #### [facility] [address] [address] [address] Hailey Marr Eosinophils/100 WBC (Bld) 1.5 % Normal 0.9-7.0 [facility] Comment on above: Performed By: #### C BC #### [facility] [address] [place] [address] Dr. Hailey Marr Erythrocyte distribution width (RBC) [Ratio] 13.6 % Normal 11.0-15.0 [facility] Comment on above: Performed By: #### C BC #### [facility] [address] [place] [address] Dr. Hailey Marr Hematocrit (Bld) [Volume fraction] 40.9 % Critically low 42.0-54.0 [facility] Comment on above: Performed By: #### C BC #### [facility] [address] [place] [address] Dr. Hailey Marr Hemoglobin (Bld) [Mass/Vol] 14.3 g/dL Normal 14.0-18.0 [facility] Comment on above: Performed By: #### C BC #### [facility] [address] [place] [address] Dr. Hailey Marr IG # 0.04 10e3/ul Critically high 0.00-0.03 [facility] Comment on above: Performed By: #### C BC #### [facility] [address] [place] [address] Dr. Hailey Marr IG % 0.3 % Normal 0.0-0.5 [facility] Comment on above: Performed By: #### C BC #### [facility] [address] [place] [address] Dr. Hailey Marr LYMPH # 1.6 103/ul Normal 1.2-3.8 [facility] Comment on above: Performed By: #### C BC #### [facility] [address] [place] [address] Dr. Hailey Marr Lymphocytes/100 WBC (Bld) 12.6 % Critically low 20.5-60.0 [facility] Comment on above: Performed By: #### C BC #### [facility] [address] [place] [address] Dr. Hailey Marr MANUAL DIFF REQ NO Normal [facility] Comment on above: Performed By: #### C BC #### [facility] [address] [place] [address] Dr. Hailey Marr MCH (RBC) [Entitic mass] 29.1 pg Normal 25.9-34.0 [facility] Comment on above: Performed By: #### C BC #### [facility] [address] [place] [address] Dr. Hailey Marr MCHC (RBC) [Mass/Vol] 35.0 g/dL Normal 29.9-35.2 [facility] Comment on above: Performed By: #### C BC #### [facility] [address] [place] [address] Dr. Hailey Marr MCV (RBC) [Entitic vol] 83.3 fL Normal 80.0-94.0 [facility] Comment on above: Performed By: #### C BC #### [facility] [address] [place] [address] Dr. Hailey Marr MONO # 1.0 103/ul Critically high 0.3-0.8 [facility] Comment on above: Performed By: #### C BC #### [facility] [address] [place] [address] Dr. Hailey Marr Monocytes/100 WBC (Bld) 8.3 % Normal 1.7-12.0 [facility] Comment on above: Performed By: #### C BC #### [facility] [address] [place] [address] Dr. Hailey Marr NEUT # 9.6 103/ul Critically high 1.4-6.5 [facility] Comment on above: Performed By: #### C BC #### [facility] [address] [place] [address] Dr. Hailey Marr Neutrophils/100 WBC (Bld) 76.7 % Critically high 43.0-75.0 [facility] Comment on above: Performed By: #### C BC #### [facility] [address] [place] [address] Dr. Hailey Marr Platelet mean volume (Bld) [Entitic vol] 9.8 fL Normal 9.5-13.5 [facility] Comment on above: Performed By: #### C BC #### [facility] [address] [place], [place] [address] Dr. Hailey Marr PLT 326 103/ul Normal 150-450 [facility] Comment on above: Performed By: #### C BC #### [facility] [address] [place], [place] [address] Dr. Hailey Marr RBC 4.91 106/ul Normal 4.70-6.10 [facility] Comment on above: Performed By: #### C BC #### [facility] [address] [place], [place] [address] Dr. Hailey Marr WBC 12.5 103/ul Critically high 4.0-11.0 [facility] Comment on above: Performed By: #### C BC #### [facility] [address] [place], [place] [address] ABD/PELVIS WO CONon 09-14 CT ABD/PELVIS WO CON CLINICAL HISTORY: P ersonal history of urinary calculi. Acute onset right [...] TANJA BECKER Date: 2022-09-14 08:07 Normal [facility] URINE PROFILEon 3 Bilirubin Ql (U) Negative Normal NEGATIVE [facility] Comment on above: Performed By: #### U MICRO, ERUR #### [facility] [address] [address] [address] Hailey Marr Clarity (U) CLEAR Normal CLEAR [facility] Comment on above: Performed By: #### U MICRO, ERUR #### [facility] [address] [address] [address] Hailey Marr Color (U) YELLOW Normal YELLOW [facility] Comment on above: Performed By: #### U MICRO, ERUR #### [facility] [address] [address] [address] Hailey RALPHD A micrscopic examina tion will be performed if indicated. Normal [facility] Comment on above: Performed By: #### U MICRO, ERUR #### [facility] [address] [place] [address] Dr. Hailey Marr Glucose Ql (U) Negative Normal NEGATIVE [facility] Comment on above: Performed By: #### U MICRO, ERUR #### [facility] [address] [address] [address] Hailey Marr Hemoglobin Ql (U) LARGE Abnormal NEGATIVE [facility] Comment on above: Performed By: #### U MICRO, ERUR #### [facility] [address] [place] [address] Dr. Hailey Marr Ketones Ql (U) 15 mg/dl Abnormal NEGATIVE [facility] Comment on above: Performed By: #### U MICRO, ERUR #### [facility] [address] [place] [address] Dr. Hailey Marr LEUKOCYTES Negative Normal NEGATIVE [facility] Comment on above: Performed By: #### U MICRO, ERUR #### [facility] [address] [address] [address] Hailey Marr Nitrite Ql (U) Negative Normal NEGATIVE [facility] Comment on above: Performed By: #### U MICRO, ERUR #### [facility] [address] [address] [address] Hailey Marr pH (U) 5.5 [pH] Normal 5-9 [facility] Comment on above: Performed By: #### U MICRO, ERUR #### [facility] [address] [address] [address] Hailey Marr Protein (U) [Mass/Vol] 30 mg/dL Abnormal NEGAT LUIGI/ TRACE [facility] Comment on above: Performed By: #### U MICRO, ERUR #### [facility] [address] [place] [address] Dr. Hailey Marr SPEC GRAVITY >=1.030 Abnormal 1.005-<=1.0 25 [facility] Comment on above: Performed By: #### U MICRO, ERUR #### [facility] [address] [place] [address] Dr. Hailey Marr UR MICRO IND INDICATED Normal [facility] Comment on above: Performed By: #### U MICRO, ERUR #### [facility] [address] [place] [address] Dr. Hailey Marr Urobilinogen Qn (U) 0.2 {Bryon'U}/dL Normal 0.2 - 1. 0 [facility] Comment on above: Performed By: #### U MICRO, ERUR #### [facility] [address] [place] [address] Dr. Hailey Marr LIPASEon 09-14-2022 Lipase [Catalytic activity/Vol] 662.0 U/L Critically high 73.0-393.0 [facility] Comment on above: Performed By: #### L IPA, CMP, VIJI #### [facility] [address] [place] [address] Dr. Hailey Marr PROF 14(COMP METB)on 023 Albumin [Mass/Vol] 4.0 g/dL Normal 3.4-5.0 [facility] Comment on above: Performed By: #### L IPA, CMP, VIJI #### [facility] [address] [place] [address] Dr. Hailey Marr Albumin/Globulin [Mass ratio] 0.9 {ratio} Normal [facility] Comment on above: Performed By: #### L IPA, CMP, VIJI #### [facility] [address] [place] [address] Dr. Hailey Marr ALP [Catalytic activity/Vol] 69 U/L Normal 46-116 [facility] Comment on above: Performed By: #### L IPA, CMP, VIJI #### [facility] [address] [place] [address] Dr. Hailey Marr ALT [Catalytic activity/Vol] 51 U/L Normal 16-63 [facility] Comment on above: Performed By: #### L IPA, CMP, VIJI #### [facility] [address] [address] [address] Hailey Marr Anion gap [Moles/Vol] 13.4 mmol/L Normal [facility] Comment on above: Performed By: #### L IPA, CMP, VIJI #### [facility] [address] [address] [address] Hailey Marr AST [Catalytic activity/Vol] 24 U/L Normal 15-37 [facility] Comment on above: Performed By: #### L IPA, CMP, VIJI #### [facility] [address] [address] [address] Hailey Marr Bilirubin [Mass/Vol] 0.5 mg/dL Normal 0.2-1.0 [facility] Comment on above: Performed By: #### L IPA, CMP, VIJI #### [facility] [address] [place] [address] Dr. Hailey Marr Calcium [Mass/Vol] 10.8 mg/dL Critically high 8.5-10.1 [facility] Comment on above: Performed By: #### L IPA, CMP, VIJI #### [facility] [address] [address] [address] Hailey Marr Chloride [Moles/Vol] 104 mmol/L Normal 98-107 [facility] Comment on above: Performed By: #### L IPA, CMP, VIJI #### [facility] [address] [address] [address] Hailey Marr CO2 [Moles/Vol] 26.6 mmol/L Normal 21.0-32.0 [facility] Comment on above: Performed By: #### L IPA, CMP, VIJI #### [facility] [address] [address] [address] Hailey Marr Creatinine [Mass/Vol] 1.19 mg/dL Normal 0.70-1.30 [facility] Comment on above: Performed By: #### L IPA, CMP, VIJI #### [facility] [address] [address] [address] Hailey Marr EGFR-AF FINNISH >60 Normal >=60 [facility] Comment on above: Result Comment: Prev iously reported as: 60 On 09/14/2022 08:02 By [email or web address] Performed By: #### L IPA, CMP, VIJI #### [facility] [address] [place] [address] Dr. Hailey Marr EGFR-NON AF FINNISH >60 Normal >=60 [facility] Comment on above: Result Comment: Prev iously reported as: 60 On 09/14/2022 08:02 By [email or web address] Performed By: #### L IPA, CMP, VIJI #### [facility] [address] [place] [address] Dr. Hailey Marr Globulin (S) [Mass/Vol] 4.3 g/dL Normal [facility] Comment on above: Performed By: #### L IPA, CMP, VIJI #### [facility] [address] [place] [address] Dr. Hailey Marr Glucose [Mass/Vol] 201 mg/dL Critically high 74-106 [facility] Comment on above: Performed By: #### L IPA, CMP, VIJI #### [facility] [address] [place] [address] Dr. Hailey Marr Potassium [Moles/Vol] 4.0 mmol/L Normal 3.5-5.1 [facility] Comment on above: Performed By: #### L IPA, CMP, VIJI #### [facility] [address] [place] [address] Dr. Hailey Marr Protein [Mass/Vol] 8.3 g/dL Critically high 6.4-8.2 [facility] Comment on above: Performed By: #### L IPA, CMP, VIJI #### [facility] [address] [place] [address] Dr. Hailey Marr Sodium [Moles/Vol] 140 mmol/L Normal 136-145 [facility] Comment on above: Performed By: #### L IPA, CMP, VIJI #### [facility] [address] [place] [address] Dr. Hailey Marr Urea nitrogen [Mass/Vol] 21.0 mg/dL Critically high 7.0-18.0 [facility] Comment on above: Performed By: #### L IPA, CMP, VIJI #### [facility] [address] [address] [address] Hailey Marr Urea nitrogen/Creatinine [Mass ratio] 17.6 mg/mg Normal [facility] Comment on above: Performed By: #### L IPA, CMP, VIJI #### [facility] [address] [address] [address] Hailey Marr URINE MICROSCOPIC ONLYon BACTERIA TRACE Abnormal NONE SEEN [facility] Comment on above: Performed By: #### U MICRO, ERUR #### [facility] [address] [address] [address] Hailey Marr Bacteria identified Cx Nom (U) NOT INDICATED Normal [facility] Comment on above: Performed By: #### U MICRO, ERUR #### [facility] [address] [address] [address] Hailey Marr CA OX CRYSTALS FEW Normal [facility] Comment on above: Performed By: #### U MICRO, ERUR #### [facility] [address] [address] [address] Hailey Marr CAST NONE SEEN Normal NONE SEEN [facility] Comment on above: Performed By: #### U MICRO, ERUR #### [facility] [address] [address] [address] Hailey Marr Crystals LM Nom (Urine sed) SEEN Abnormal NONE SEEN [facility] Comment on above: Performed By: #### U MICRO, ERUR #### [facility] [address] [address] [address] Hailey Marr Epithelial cells LM Ql (Urine sed) RARE Normal NONE SEEN /RARE [facility] Comment on above: Performed By: #### U MICRO, ERUR #### [facility] [address] [address] [address] Hailey Marr MUCOUS NONE SEEN Normal NONE SEEN [facility] Comment on above: Performed By: #### U MICRO, ERUR #### [facility] [address] [address] [address] Hailey Marr RBC 5-10 Abnormal 0-2 [facility] Comment on above: Performed By: #### U MICRO, ERUR #### [facility] [address] [address] [address] Hailey Marr WBC 2-5 Abnormal NONE SEEN [facility] Comment on above: Performed By: #### U MICRO, ERUR #### [facility] [address] [place] [address] Dr. Hailey Marr In office Testingon 09-05-19 23 In office Testing [id number]:127 Normal [facility] XR KUB 1 VIEWon 03-15-2022 [...] by: ROX EASLEY Date: 2022-03-15 06:37 Normal [facility] CBC AUTO DIFFon 12-07-2021 BASO # 0.1 103/ul Normal 0.0-0.1 [facility] Comment on above: Performed By: #### C BC #### [facility] [address] [place] [address] Dr. Hailey Marr Basophils/100 WBC (Bld) 0.7 % Normal 0.2-2.0 [facility] Comment on above: Performed By: #### C BC #### [facility] [address] [place] [address] Dr. Hailey Marr EO # 0.3 103/ul Normal 0.0-0.7 [facility] Comment on above: Performed By: #### C BC #### [facility] [address] [place] [address] Dr. Hailey Marr Eosinophils/100 WBC (Bld) 3.4 % Normal 0.9-7.0 [facility] Comment on above: Performed By: #### C BC #### [facility] [address] [place] [address] Dr. Hailey Marr Erythrocyte distribution width (RBC) [Ratio] 13.5 % Normal 11.0-15.0 [facility] Comment on above: Performed By: #### C BC #### [facility] [address] [place] [address] Dr. Hailey Marr Hematocrit (Bld) [Volume fraction] 39.4 % Critically low 42.0-54.0 [facility] Comment on above: Performed By: #### C BC #### [facility] [address] [place] [address] Dr. Hailey Marr Hemoglobin (Bld) [Mass/Vol] 13.1 g/dL Critically low 14.0-18.0 [facility] Comment on above: Performed By: #### C BC #### [facility] [address] [place] [address] Dr. Hailey Marr IG # 0.03 10e3/ul Normal 0.00-0.03 [facility] Comment on above: Performed By: #### C BC #### [facility] [address] [place] [address] Dr. Hailey Marr IG % 0.4 % Normal 0.0-0.5 [facility] Comment on above: Performed By: #### C BC #### [facility] [address] [place] [address] Dr. Hailey Marr LYMPH # 2.8 103/ul Normal 1.2-3.8 [facility] Comment on above: Performed By: #### C BC #### [facility] [address] [place] [address] Dr. Hailey Marr Lymphocytes/100 WBC (Bld) 37.2 % Normal 20.5-60.0 [facility] Comment on above: Performed By: #### C BC #### [facility] [address] [place] [address] Dr. Hailey Marr MANUAL DIFF REQ NO Normal [facility] Comment on above: Performed By: #### C BC #### [facility] [address] [address] [address] Hailey Marr MCH (RBC) [Entitic mass] 29.5 pg Normal 25.9-34.0 [facility] Comment on above: Performed By: #### C BC #### [facility] [address] [place] [address] Dr. Hailey Marr MCHC (RBC) [Mass/Vol] 33.2 g/dL Normal 29.9-35.2 [facility] Comment on above: Performed By: #### C BC #### [facility] [address] [place] [address] Dr. Hailey Marr MCV (RBC) [Entitic vol] 88.7 fL Normal 80.0-94.0 [facility] Comment on above: Performed By: #### C BC #### [facility] [address] [place] [address] Dr. Hailey Marr MONO # 0.6 103/ul Normal 0.3-0.8 [facility] Comment on above: Performed By: #### C BC #### [facility] [address] [place] [address] Dr. Hailey Marr Monocytes/100 WBC (Bld) 8.6 % Normal 1.7-12.0 [facility] Comment on above: Performed By: #### C BC #### [facility] [address] [place] [address] Dr. Hailey Marr NEUT # 3.7 103/ul Normal 1.4-6.5 [facility] Comment on above: Performed By: #### C BC #### [facility] [address] [place] [address] Dr. Hailey Marr Neutrophils/100 WBC (Bld) 49.7 % Normal 43.0-75.0 [facility] Comment on above: Performed By: #### C BC #### [facility] [address] [place] [address] Dr. Hailey Marr Platelet mean volume (Bld) [Entitic vol] 9.5 fL Normal 9.5-13.5 [facility] Comment on above: Performed By: #### C BC #### [facility] [address] [place] [address] Dr. Hailey Marr PLT 310 103/ul Normal 150-450 [facility] Comment on above: Performed By: #### C BC #### [facility] [address] [place] [address] Dr. Hailey Marr RBC 4.44 106/ul Critically low 4.70-6.10 [facility] Comment on above: Performed By: #### C BC #### [facility] [address] [place] [address] Dr. Hailey Marr WBC 7.4 103/ul Normal 4.0-11.0 [facility] Comment on above: Performed By: #### C BC #### [facility] [address] [place] [address] Dr. Hailey Marr PROF 14(COMP METB)on 022 Albumin [Mass/Vol] 3.8 g/dL Normal 3.4-5.0 [facility] Comment on above: Performed By: #### C MP #### [facility] [address] [place] [address] Dr. Hailey Marr Albumin/Globulin [Mass ratio] 1.0 {ratio} Normal [facility] Comment on above: Performed By: #### C MP #### [facility] [address] [place] [address] Dr. Hailey Marr ALP [Catalytic activity/Vol] 60 U/L Normal 46-116 [facility] Comment on above: Performed By: #### C MP #### [facility] [address] [place] [address] Dr. Hailey Marr ALT [Catalytic activity/Vol] 73 U/L Critically high 16-63 [facility] Comment on above: Performed By: #### C MP #### [facility] [address] [place] [address] Dr. Hailey Marr Anion gap [Moles/Vol] 12.5 mmol/L Normal [facility] Comment on above: Performed By: #### C MP #### [facility] [address] [place] [address] Dr. Hailey Marr AST [Catalytic activity/Vol] 30 U/L Normal 15-37 [facility] Comment on above: Performed By: #### C MP #### [facility] [address] [place] [address] Dr. Hailey Marr Bilirubin [Mass/Vol] 0.4 mg/dL Normal 0.2-1.0 [facility] Comment on above: Performed By: #### C MP #### [facility] [address] [place] [address] Dr. Hailey Marr Calcium [Mass/Vol] 10.0 mg/dL Normal 8.5-10.1 [facility] Comment on above: Performed By: #### C MP #### [facility] [address] [place] [address] Dr. Hailey Marr Chloride [Moles/Vol] 104 mmol/L Normal 98-107 [facility] Comment on above: Performed By: #### C MP #### [facility] [address] [place] [address] Dr. Hailey Marr CO2 [Moles/Vol] 27.0 mmol/L Normal 21.0-32.0 [facility] Comment on above: Performed By: #### C MP #### [facility] [address] [place] [address] Dr. Hailey Marr Creatinine [Mass/Vol] 0.89 mg/dL Normal 0.70-1.30 [facility] Comment on above: Performed By: #### C MP #### [facility] [address] [place] [address] Dr. Hailey Marr EGFR-AF FINNISH >60 Normal >=60 [facility] Comment on above: Performed By: #### C MP #### [facility] [address] [place] [address] Dr. Hailey Marr EGFR-NON AF FINNISH >60 Normal >=60 [facility] Comment on above: Performed By: #### C MP #### [facility] [address] [place] [address] Dr. Hailey Marr Globulin (S) [Mass/Vol] 3.9 g/dL Normal [facility] Comment on above: Performed By: #### C MP #### [facility] [address] [address] [address] Hailey Marr Glucose [Mass/Vol] 120 mg/dL Critically high 74-106 [facility] Comment on above: Performed By: #### C MP #### [facility] [address] [address] [address] Hailey Marr Potassium [Moles/Vol] 4.5 mmol/L Normal 3.5-5.1 [facility] Comment on above: Performed By: #### C MP #### [facility] [address] [address] [address] Hailey Marr Protein [Mass/Vol] 7.7 g/dL Normal 6.4-8.2 [facility] Comment on above: Performed By: #### C MP #### [facility] [address] [address] [address] Hailey Marr Sodium [Moles/Vol] 139 mmol/L Normal 136-145 [facility] Comment on above: Performed By: #### C MP #### [facility] [address] [address] [address] Hailey Marr Urea nitrogen [Mass/Vol] 10.0 mg/dL Normal 7.0-18.0 [facility] Comment on above: Performed By: #### C MP #### [facility] [address] [address] [address] Hailey Marr Urea nitrogen/Creatinine [Mass ratio] 11.2 mg/mg Normal [facility] Comment on above: Performed By: #### C MP #### [facility] [address] [address] [address] Hailey Marr Vital Signs Date Time Vital Sign Value Performing Clinician Facility 03-01-2025 12:00-0400 Diastolic blood pressure 64 mm[Hg] Marek Santiago JR Work Phone: [facility] 03-01-2025 12:00-0400 Heart rate 83 /min Marek Santiago JR Work Phone: [facility] 03-01-2025 12:00-0400 Respiratory rate 17 /min Marek Santiago JR Work Phone: [facility] 03-01-2025 12:00-0400 SaO2% (BldA) [Mass fraction] 97 % Marek Bestone Work Phone: [facility] 03-01-2025 12:00-0400 Systolic blood pressure 103 mm[Hg] Marek Bestone Work Phone: [facility] 03-01-2025 08:00-0400 Body temperature 97.8 [degF] Marek Bestone Work Phone: [facility] 03-01-2025 06:00-0400 Body weight 84.9 kg Marek Santiago JR Work Phone: [facility] 02-26-2025 22:46-0400 Body height 182.88 cm Marek Santiago JR Work Phone: [facility] 02-26-2025 21:30-0400 Diastolic blood pressure 64 mm[Hg] Marek Santiago JR Work Phone: [facility] 02-26-2025 21:30-0400 Heart rate 123 /min Marek Santiago JR Work Phone: [facility] 02-26-2025 21:30-0400 Respiratory rate 20 /min Marek Santiago JR Work Phone: [facility] 02-26-2025 21:30-0400 SaO2% (BldA) [Mass fraction] 95 % Marek Santiago JR Work Phone: [facility] 02-26-2025 21:30-0400 Systolic blood pressure 116 mm[Hg] Marek Bestone JR Work Phone: [facility] 02-26-2025 16:04-0400 Body height 182.88 cm Marek Bestone JR Work Phone: [facility] 02-26-2025 16:04-0400 Body temperature 98.8 [degF] Marek Bestone JR Work Phone: [facility] 02-26-2025 16:04-0400 Body weight 86 kg Marek Santiago JR Work Phone: [facility] 03-20-2022 07:57-0400 Blood Pressure Location Serafin ARAGON [facility] 03-20-2022 07:57-0400 Diastolic blood pressure 70 mm[Hg] Serafin ARAGON [facility] 03-20-2022 07:57-0400 Systolic blood pressure 138 mm[Hg] Serafin ARAGON [facility] 03-15-2022 09:30-0400 Body height 182.88 cm Lala Calvey Other [facility] Other 03-15-2022 09:30-0400 Body mass index (BMI) [Ratio] 29.83 kg/m2 Lala Calvey Other [facility] Other 03-15-2022 09:30-0400 Body weight 99.79 kg Lala Calvey Other [facility] Other 12-07-2021 10:00-0400 Body height 182.88 cm Lala Calvey Other [facility] Other 12-07-2021 10:00-0400 Body mass index (BMI) [Ratio] 30.51 kg/m2 Lala Calvey Other [facility] Other 12-07-2021 10:00-0400 Body weight 102.06 kg Lala Calvey Other [facility] Other Encounters Encounter Date Encounter Type Care Provider Facility Start: 02-26-2025 End: 03-01-2025 Evaluation and management of inpatient Orlando Walton MD -[facility] Work Phone: Start: 02-24-2025 ambulatory Derik Marrero Facility :[facility] Start: 02-17-2025 End: 02-17-2025 ambulatory Derik J [facility] Facility:[facility] Start: 02-17-2025 ambulatory Derik Marrero Facility : [facility] Start: 02-15-2025 End: 02-15-2025 ambulatory Marek Santiago JR Work Phone: [facility] Work Phone: Start: 02-15-2025 End: 02-15-2025 Departed Referred NON STAFF -[facility] Start: 02-13-2025 End: 02-13-2025 ambulatory Marek Santiago JR Work Phone: [facility] Work Phone: Start: 02-13-2025 End: 02-13-2025 Departed Referred NON STAFF -[facility] Start: 02-03-2025 End: 02-03-2025 ambulatory Derik Marrero Facility:[facility] Start: 01-07-2025 End: 01-07-2025 ambulatory Derik J Marrero Facility:[facility] Start: 03-20-2023 End: 03-21-2023 ambulatory Dyan MASSEY Facility:[facility] Start: 03-20-2023 End: 03-20-2023 Patient encounter procedure Dyan MASSEY General Surgery [facility] [place] Start: 03-08-2023 ambulatory Serafin ARAGON Facility:[facility] Start: 09-14-2022 End: 09-14-[address] HILDA SOTO . Facility:[facility] Start: 03-20-2022 End: 03-20-2022 Patient encounter procedure Serafin ARAGON [facility] Start: 03-15-2022 End: 03-15-2022 ambulatory Lala Hinds Other [facility] Other Start: 03-15-2022 Office outpatient vi sit 15 minutes Lalaelizabeth Hinds [facility] Start: 03-14-2022 End: 03-15-[address] MAREK SANTIAGO Facility:[facility] Start: 02-08-2022 End: 02-08-2022 ambulatory Lala Hinds Other [facility] Other Start: 02-08-2022 Postop follow up vis it related to original px Lala Calvey [facility] Start: 01-11-2022 End: 01-11-2022 ambulatory Lala Hinds Other [facility] Other Start: 01-11-2022 Postop follow up vis it related to original px Lala Calvey [facility] Start: 12-16-2021 End: 12-16-2021 ambulatory Lala Hinds Other [facility] Other Start: 12-16-2021 Postop follow up vis it related to original px Lala Calvey [facility] Start: 12-14-2021 Encounter for preprocedural laboratory examination LALA HINDS [facility] Start: 12-07-2021 End: 12-08-2021 Encounter for preprocedural laboratory examination LALA HINDS Facility:[facility] Start: 12-07-2021 End: 12-08-2021 ambulatory LALA HINDS [facility] Other Start: 12-07-2021 Encounter for other preprocedural examination Lalaelizabeth Hinds [facility] Start: 12-07-2021 Office outpatient ne w 45 minutes Lalaelizabeth Hinds [facility] Start: 12-05-2021 End: 12-05-[address] MAREK SANTIAGO Facility:[facility] Procedures Date Procedure Procedure Detail Performing Clinician Start: 02-26-2025 Computed tomography of abdomen and pelvis with contrast Marek Santiago Work Phone: Start: 02-26-2025 Plain chest X-ray Sandrine Santiago JR Work Phone: Start: 02-26-2025 Bacterial ID (NA Mul tiplex Assay) Marek Santiago JR Work Phone: Start: 02-26-2025 Respiratory Panel (PCR) Marek Santiago JR Work Phone: Start: 02-26-2025 Urine culture Marek V jesus SHAW Work Phone: Start: 02-15-2025 Urine culture Marek V alone Work Phone: Start: 02-13-2025 Urine culture Marek V alone Work Phone: Start: 03-07-2023 Appendectomy Dyan KATY LL Start: 09-21-2020 Cystoscopy Serafin [place] Start: [...] Treatment Date Care Activity Detail Author Start: 03-08-2025 [facility] Start: 03-07-2025 [facility] Start: 03-06-2025 [facility] Start: 03-05-2025 [facility] Start: 03-04-2025 [facility] Start: 03-03-2025 [facility] Start: 03-02-2025 [facility] Start: 03-01-2025 Bacteria identified in Blood by Culture Blood Culture [facility] Start: 03-01-2025 End: 03-01-2025 [facility] Start: 02-28-2025 [facility] Start: 02-27-2025 Referral to visual education director [facility] Start: 02-27-2025 [facility] Start: 02-27-2025 [facility] Start: 02-26-2025 [facility] Start: 02-26-2025 Physical therapy procedure [facility] Start: 02-26-2025 Referral to occupati onal therapist [facility] Start: 02-26-2025 [facility] Start: 02-26-2025 Hospital admission [facility] Start: 02-26-2025 Urine culture [facility] Start: 02-26-2025 [facility] Start: 02-26-2025 Bacteria identified in Blood by Culture Blood Culture [facility] Start: 02-26-2025 Bacteria identified in Urine by Culture Urine Culture [facility] Start: 02-15-2025 Bacteria identified in Urine by Culture Urine Culture [facility] Start: 02-15-2025 Urine culture [facility] Start: 02-13-2025 Bacteria identified in Urine by Culture Urine Culture [facility] Start: 02-13-2025 End: 02-13-2025 Urine culture [facility] Start: 04-11-2023 ambulatory Ambulatory Facility:[facility] [place] Patient Education Know your Meds [facility] Work Phone: Patient referral [facility] Work Phone: Immunizations Immunization Date Immunization Notes Care Provider Mak senior 06-11-2021 SARS-CoV-2 (COVID-19 ) [id number] vaccine Dyan MASSEY General Surgery [place] Comment on above: Result Comment: 2022: [id number] 10-15-2020 SARS-CoV-2 (COVID-19 ) mRNA-1273 vaccine Dyan MASSEY [facility] [place] 09-17-2020 SARS-CoV-2 (COVID-19 ) mRNA-1273 vaccine Dyan MASSEY [facility] [place] 04-23-2019 influenza virus vaccine, live, attenuated, for intranasal use Serafin ARAGON [facility] Payers Date Payer Category Payer Self-pay 2020 Unknown 2015 Medicare [id number] 2015 Unknown [id number] 1959 Unknown [id number] 2. [id number] 1960 Unknown [id number] 2.16.84 [id number] 1960 Unknown [id number] 2.16.84 [id number] 1960 Unknown [id number] 2.16.84 [id number] 1958 Unknown [id number] 2.16.84 [id number] 1958 Unknown [id number] 2.16.8 [id number] 1958 Unknown [id number] 2.16.8 40.1.556476.3.579.2.727 1958 Unknown [id number] 2.16.8 40.1.740658.3.579.2.718 1958 Unknown [id number] 2.16.8 40.1.290409.3.579.2.718 1958 Unknown [id number] 2.16.8 40.1.227303.3.579.2.718 1958 Unknown [id number] 2.16.8 [id number] 1960 Unknown [id number] 2.16.8 [id number] Unknown Alexander BC/BS [id number] Unknown [id number] 2.16.8 [id number] Unknown [id number] 2.16.8 [id number] Unknown [id number] 2.16.8 [id number] Social History Date Type Detail Facility Sex Assigned At [facility] Other Start: 03-20-2022 Tobacco smoking status Never s moked tobacco (finding) [facility] Start: 03-20-2023 End: 02-26-2025 Tobacco smoking status Ex-smoker (finding) [facility] Tobacco smoking status Never [facility] Sex Male (finding) [facility] Start: 1960 Sex Assigned At Male [facility] Medical Equipment Procedure Code Equipment Code Equipment Original Text Equipment Identifier Dates EXTRACORPOREAL S HOCK WAVE LITHOTRIPSY Serafin ARAGON MD P 09/09/20 Unknown Ureter R {[id number]{ [id number] FDA Start: 09-09-2020 CYSTOSCOPY URETE ROSCOPY Serafin ARAGON MD 09/16/20 Unknown Ureter R {[id number]{ [id number]{[id number] FDA Start: 09-16-2020 Goals Date Patient Goal Desired Activity /State Functional Status Date Assessment Result Facility 03-01-2025 Functional status Patient at [facility] Work Phone: 02-26-2025 Functional status Patient Not at [facility] Work Phone: 03-20-2023 Functional Status N/A [facility] 03-20-2022 Functional Status N/A [facility] Mental Status Date Assessment Result Facility 03-01-2025 Cognitive function Cognitive Sta tus Patient at Baseline [facility] Work Phone: 02-26-2025 Cognitive function Cognitive Sta tus Patient at Baseline [facility] Work Phone: Clinical Notes 12-07-2021 to 03-01-2025 Note Date & Type Note Facility 03-01-2025 Progress note [facility] 02-28-2025 Progress note Note Date/Time February 28, 2025 4:37pm [facility] [address] [place] [address] Hospitalist Progress Note Signed Patient: Dyan Harrell MR#: [id number] : 1960 Acct:[id number] Age/Sex: 64 / M Adm Date: 5 Loc: Room: [address] [place] [address] Type: ADM IN Attending Dr: Dyan Sharp DO Copies to: ~ Date of Service: 02/28/2025 Subjective Subjective Narrative: I personally saw and examined the patient at the bedside this afternoon. He complains of some swelling in the hands he feels it is due to IV fluids. Overall feeling better. Physical Examination: GENERAL APPEARANCE: Alert, up in bed AAOx3 CARDIAC: Normal S1 and S2. No S3, S4 or murmurs. LUNGS: Clear to auscultation bilaterally. no wheeze/rhonchi/rales ABDOMEN: Positive bowel sounds. Soft, nontender. No guarding or signs of an acute abdomen MUSCULOSKELETAL: No joint erythema or tenderness. EXTREMITIES: No clubbing, cyanosis. Mild pitting edema in the upper extremitiesconcentrated in the hands NEUROLOGICAL: No focal deficits SKIN: Skin normal color, texture and turgor with no lesions or eruptions. PSYCHIATRIC: Appropriate mood and affect 1. Severe sepsis secondary to E. coli bacteremia 2. Complicated urinary tract infection with E. coli (ESBL) cystitis 3. Type II myocardial infarction 4. Lactic acidosis 5. Type 2 diabetes mellitus 6. Anemia Patient had a 100.3 fever and lactic acidosis on presentation. He has been afebrile. Chemistries and CBC appear improved on sequential labs. White blood cell count is down to 10.2 today. Some mild reactive thrombocytosis has resolved as well. Renal function remains intact. Electrolytes normal. Cardiactroponins were elevated secondary to demand ischemia and have trended downward. Outpatient stress test in a number of weeks per cardiology recommendations. Low-dose baby aspirin 81 mg daily and beta-jennifer 12.5 mg metoprolol twice daily are also on board. The patient has ESBL E. coli in the urine with varying degree of resistance. Will start the patient on IV Levaquin tomorrow morning to assess tolerance to this medication. If he is doing well and labs appear to be trending positively as they have been, he can likely be discharged tomorrow on 7 more days of oral Levaquin Exam Physical Exam Vital Signs: Temp Pulse Resp BP Pulse Ox O2 Del Method 98.3 F 93 17 111/68 97 Room Air 02/28/25 12:00 02/28/25 12:00 02/28/25 12:00 02/28/25 12:00 02/28/25 12:00 02/28/25 12:00 Objective Lab Results 02/28/25 04:24 02/28/25 04:24 Microbiology Results Microbiology 02/26/25 16:15 Blood - Left Forearm Blood Culture - Preliminary Escherichia coli 02/26/25 16:20 Blood - Right Forearm Blood Culture - Preliminary Escherichia coli 02/26/25 16:20 Blood - Right Forearm Bacterial ID (NA Multiplex Assay) - Final 02/26/25 16:25 Urine - Clean-Voided Midstream Urine Culture - Final Escherichia coli (ESBL) Meds Allergies and Active Meds Allergies No Known Allergies Allergy (Verified 02/26/25 16:12) Active Meds: Active Medications Generic Name Dose Route Start Last Admin Trade Name Freq PRN Reason Stop Dose Admin Acetaminophen 1,000 mg 02/26/25 21:57 02/27/25 17:27 Acetaminophen 500 Mg Tablet PO 02/26/26 21:56 1,000 mg Q6H PRN Administration Fever or Pain Aspirin 81 mg 02/27/25 09:00 02/28/25 10:13 Aspirin 81 Mg Tab.Chew PO 02/27/26 08:59 81 mg DAILY MENDEZ Administration Enoxaparin Sodium 90 mg 02/26/25 22:30 02/28/25 10:13 Enoxaparin 90 Mg/0.9 Ml From Multidose Vial SUBCUT 02/26/26 22:29 90 mg Q12HR.10A.10P MENDEZ Administration Meropenem 1 gm in 100 mls @ 33.333 mls/hr 02/26/25 20:00 02/28/25 14:32 Merrem IV 03/01/25 00:01 33.33 mls/hr Q8H MENDEZ Administration Levofloxacin 750 mg in 150 mls @ 100 mls/hr 03/01/25 09:00 Levaquin IV DAILY MENDEZ Metoprolol Tartrate 12.5 mg 02/28/25 21:00 Metoprolol Tartrate 12.5 Mg Tablet PO 02/28/26 20:59 BID MENDEZ Sodium Chloride 0 ml 02/26/25 16:11 02/27/25 10:05 Sodium Chloride 0.9 % 10 Ml Syringe IV-PUSH 02/26/26 16:10 10 ml PRN PRN Administration Flush A&P - Hospitalist Assessment/Plan (1) Elevated troponin: Plan: . Documented By: Dyan Sharp DO 02/28/25 16 30 Signed By: <Electronically signed by Dyan Sharp DO> 02/28/[address] [place] [address] Work Phone: 1(381) 909-648208-23-2025 [place] [address] Hospitalist Progress Note Signed Patient: Dyan Harrell MR#: [id number] : 1960 Acct:[id number] Age/Sex: 64 / M Adm Date: 5 Loc: 4P Room: [address] [place] [address] Type: ADM IN Attending Dr: Dyan Sharp DO Copies to: ~ Date of Service: 02/28/2025 Subjective Subjective Narrative: I personally saw and examined the patient at the bedside this afternoon. He complains of some swelling in the hands he feels it is due to IV fluids. Overall feeling better. Physical Examination: GENERAL APPEARANCE: Alert, up in bed AAOx3 CARDIAC: Normal S1 and S2. No S3, S4 or murmurs. LUNGS: Clear to auscultation bilaterally. no wheeze/rhonchi/rales ABDOMEN: Positive bowel sounds. Soft, nontender. No guarding or signs of an acute abdomen MUSCULOSKELETAL: No joint erythema or tenderness. EXTREMITIES: No clubbing, cyanosis. Mild pitting edema in the upper extremitiesconcentrated in the hands NEUROLOGICAL: No focal deficits SKIN: Skin normal color, texture and turgor with no lesions or eruptions. PSYCHIATRIC: Appropriate mood and affect 1. Severe sepsis secondary to E. coli bacteremia 2. Complicated urinary tract infection with E. coli (ESBL) cystitis 3. Type II myocardial infarction 4. Lactic acidosis 5. Type 2 diabetes mellitus 6. Anemia Patient had a 100.3 fever and lactic acidosis on presentation. He has been afebrile. Chemistries and CBC appear improved on sequential labs. White blood cell count is down to 10.2 today. Some mild reactive thrombocytosis has resolved as well. Renal function remains intact. Electrolytes normal. Cardiactroponins were elevated secondary to demand ischemia and have trended downward. Outpatient stresstest in a number of weeks per cardiology recommendations. Low-dose baby aspirin 81 mg daily and beta-jennifer 12.5 mg metoprolol twice daily are also on board. The patient has ESBL E. coli in the urine with varying degree of resistance. Will start the patienton IV Levaquin tomorrow morning to assess tolerance to this medication. If he is doing well and labs appear to be trending positively as they have been, he can likely be discharged tomorrow on 7 moredays of oral Levaquin Exam Physical Exam Vital Signs: Temp Pulse Resp BP Pulse Ox O2 Del Method 98.3 F 93 17 111/68 97 Room Air 02/28/25 12:00 02/28/25 12:00 02/28/25 12:00 02/28/25 12:00 02/28/25 12:00 02/28/25 12:00 Objective Lab Results 02/28/25 04:24 02/28/25 04:24 Microbiology Results Microbiology 02/26/25 16:15 Blood - Left Forearm Blood Culture - Preliminary Escherichia coli 02/26/25 16:20 Blood - Right Forearm Blood Culture - Preliminary Escherichia coli 02/26/25 16:20 Blood - Right Forearm Bacterial ID (NA Multiplex Assay) - Final 02/26/25 16:25 Urine - Clean-Voided Midstream Urine Culture - Final Escherichia coli (ESBL) Meds Allergies and Active Meds Allergies No Known Allergies Allergy (Verified 02/26/25 16:12) Active Meds: Active Medications Generic Name Dose Route Start Last Admin Trade Name Freq PRN Reason Stop Dose Admin Acetaminophen 1,000 mg 02/26/25 21:57 02/27/25 17:27 Acetaminophen 500 Mg Tablet PO 02/26/26 21:56 1,000 mg Q6H PRN Administration Fever or Pain Aspirin 81 mg 02/27/25 09:00 02/28/25 10:13 Aspirin 81 Mg Tab.Chew PO 02/27/26 08:59 81 mg DAILY MENDEZ Administration Enoxaparin Sodium 90 mg 02/26/25 22:30 02/28/25 10:13 Enoxaparin 90 Mg/0.9 Ml From Multidose Vial SUBCUT 02/26/26 22:29 90 mg Q12HR.10A.10P MENDEZ Administration Meropenem 1 gm in 100 mls @ 33.333 mls/hr 02/26/25 20:00 02/28/25 14:32 Merrem IV 03/01/25 00:01 33.33 mls/hr Q8H MENDEZ Administration Levofloxacin 750 mg in 150 mls @ 100 mls/hr 03/01/25 09:00 Levaquin IV DAILY MENDEZ Metoprolol Tartrate 12.5 mg 02/28/25 21:00 Metoprolol Tartrate 12.5 Mg Tablet PO 02/28/26 20:59 BID MENDEZ Sodium Chloride 0 ml 02/26/25 16:11 02/27/25 10:05 Sodium Chloride 0.9 % 10 Ml Syringe IV-PUSH 02/26/26 16:10 10 ml PRN PRN Administration Flush A&P - Hospitalist Assessment/Plan (1) Elevated troponin: Plan: . Documented By: Dyan Sharp DO 02/28/25 16 30 Signed By: 02/28/25 1637 [facility]08-23-2025 Progress note Author Stephon Carrington [facility] Note Date/Time February 28, 2025 10 :15am [facility] [address] [place] [address] Cardiology Progress Note Signed Patient: Dyan Harrell MR#: [id number] : 1960 Acct:[id number] Age/Sex: 64 / M Adm Date: 5 Loc: 4 Room: 6Y3020-8 Type: ADM IN Attending Dr: Dyan Sharp DO Copies to: ~ Date of Service: 02/28/2025 Subjective Interval history: No chest pain. Mild shortness of breath. Described mild edema Exam Physical Exam Vital Signs: Temp Pulse Resp BP Pulse Ox O2 Del Method 98.4 F 96 17 133/83 97 Room Air 02/28/25 08:39 02/28/25 08:39 02/28/25 08:39 02/28/25 08:39 02/28/25 08:39 02/28/25 08:39 Const General: cooperative Neck Neck: supple Lymphatic: no lymphadenopathy noted Resp Effort & Inspection: normal respiratory effort Auscultation: clear to auscultation bilaterally Cardio Palpation: normal PMI Rate: regular rate Rhythm: regular rhythm Heart Sounds: S1 normal and S2 normal Skin General: dry skin Extrem General: full ROM and no clubbing, cyanosis or edema Objective Labs 02/28/25 04:24 02/28/25 04:24 Labs: Laboratory Results - last 24 hr 02/28/25 04:24 Corrected WBC 10.2 Uncorrected WBC Count 10.2 RBC 4.01 Hgb 11.6 L Hct 33.5 L MCV 83.6 MCH 28.9 MCHC 34.6 RDW 14.0 Plt Count 399 MPV 7.4 Neut % (Auto) 77.5 Lymph % (Auto) 11.7 [place] % (Auto) 6.7 Eos % (Auto) 3.1 Baso % (Auto) 1.0 Nucleat RBC Rel Count 0.0 Neut # (Auto) 7.9 H Lymph # (Auto) 1.2 [place] # (Auto) 0.7 Eos # (Auto) 0.3 Baso # (Auto) 0.1 PHA Creatinine Clear 99.69 Sodium 135 L Potassium 3.8 Chloride 105 Carbon Dioxide 23.5 Anion Gap 10.3 BUN 12 Creatinine 0.64 L Est GFR (CKD-EPI) > 60.0 Glucose 145 H Calcium 8.7 A&P - Cardiology (1) Elevated troponin: Assessment/Problem Details: Elevated troponin appears to be a type II event related to urosepsis. Patient denies chest pain Code(s): R79.89 - Other specified abnormal findings of blood chemistry (2) Sepsis: Code(s): A41.9 - Sepsis, unspecified organism (3) UTI (urinary tract infection): Code(s): N39.0 - Urinary tract infection, site not specified (4) Diabetes mellitus: Code(s): E11.9 - Type 2 diabetes mellitus without complications Plan 1. Continue aspirin and add low-dose beta-jennifer 2. Monitor volume status 3. Outpatient stress test and few weeks Documented By: Stephon Carrington MD 02/28/25 1006 Signed By: <Electronically signed by MD Stephon Carrington> 02/28/25 1015 [facility] Work Phone: 1(228) 670-487508-23-2025 [place] [address] Cardiology Progress Note Signed Patient: Dyan Harrell MR#: [id number] : 1960 Acct:[id number] Age/Sex: 64 / M Adm Date: 5 Loc: Room: [address] [place] [address] Type: ADM IN Attending Dr: Dyan Sharp DO Copies to: ~ Date of Service: 02/28/2025 Subjective Interval history: No chest pain. Mild shortness of breath. Described mild edema Exam Physical Exam Vital Signs: Temp Pulse Resp BP Pulse Ox O2 Del Method 98.4 F 96 17 133/83 97 Room Air 02/28/25 08:39 02/28/25 08:39 02/28/25 08:39 02/28/25 08:39 02/28/25 08:39 02/28/25 08:39 Const General: cooperative Neck Neck: supple Lymphatic: no lymphadenopathy noted Resp Effort & Inspection: normal respiratory effort Auscultation: clear to auscultation bilaterally Cardio Palpation: normal PMI Rate: regular rate Rhythm: regular rhythm Heart Sounds: S1 normal and S2 normal Skin General: dry skin Extrem General: full ROM and no clubbing, cyanosis or edema Objective Labs 02/28/25 04:24 02/28/25 04:24 Labs: Laboratory Results - last 24 hr 02/28/25 04:24 Corrected WBC 10.2 Uncorrected WBC Count 10.2 RBC 4.01 Hgb 11.6 L Hct 33.5 L MCV 83.6 MCH 28.9 MCHC 34.6 RDW 14.0 Plt Count 399 MPV 7.4 Neut % (Auto) 77.5 Lymph % (Auto) 11.7 [place] % (Auto) 6.7 Eos % (Auto) 3.1 Baso % (Auto) 1.0 Nucleat RBC Rel Count 0.0 Neut # (Auto) 7.9 H Lymph # (Auto) 1.2 [place] # (Auto) 0.7 Eos # (Auto) 0.3 Baso # (Auto) 0.1 PHA Creatinine Clear 99.69 Sodium 135 L Potassium 3.8 Chloride 105 Carbon Dioxide 23.5 Anion Gap 10.3 BUN 12 Creatinine 0.64 L Est GFR (CKD-EPI) > 60.0 Glucose 145 H Calcium 8.7 A&P - Cardiology (1) Elevated troponin: Assessment/Problem Details: Elevated troponin appears to be a type II event related to urosepsis. Patient denies chest pain Code(s): R79.89 - Other specified abnormal findings of blood chemistry (2) Sepsis: Code(s): A41.9 - Sepsis, unspecified organism (3) UTI (urinary tract infection): Code(s): N39.0 - Urinary tract infection, site not specified (4) Diabetes mellitus: Code(s): E11.9 - Type 2 diabetes mellitus without complications Plan 1. Continue aspirin and add low-dose beta-jennifer 2. Monitor volume status 3. Outpatient stress test and few weeks Documented By: Stephon Carrington MD 02/28/25 1006 Signed By: 02/28/25 1015 [facility]08-22-2025 Consult note Author W Salbador [facility] Note Date/Time February 27, 2025 5: 22pm [facility] [address] [place] [address] Cardiology Consult Note Signed Patient: Dyan Harrell MR#: [id number] : 1960 Acct:[id number] Age/Sex: 64 / M Adm Date: 5 Loc: Room: [address] [place] [address] Type: ADM IN Attending Dr: Orlando Walton MD Copies to: Marek Santiago Jr, DO Orlando Walton MD W Ramos Siu DO~ Cardiology HPI History of Present Illness Consult Date: 02/27/25 Reason for Consult: Elevated troponin HPI: Mr. Harrell is a 64 year old male seen in cardiology consultation at request of hospitalist for elevated troponin. Patient has evidence of urosepsis, sinus tachycardia; with E. coli both positivein blood and urine, status post recent laser TURP. He denies any chest heaviness, pressure or discomfort, ECG reveals sinus tachycardia with no acute ST changes and otherwise minimal upsloping ST depression at a heart rate of 129 upon entry; current heart rate 93 and current temperature 98.1 (down from 100.3 yesterday) Chest x-ray is normal; I personally reviewed echocardiogram revealing normal left ventricular function, no wall motion abnormality, ejection fraction 60 to 65%; normal valvular anatomy and functions. There is no prior history of myocardial infarction, revascularization, stroke, thromboembolic or bleeding disorder. Patient had previous stress testing a number of years ago as a screening protocol that was normal Past histories are noted for hyperlipidemia and diabetes Impression: Troponin rise associated with uro-sepsis Recommendations: No indication for invasive management, no indication for dual antiplatelet therapy; can proceed with elective stress testing in 8 to 10 weeks following successful completion of antibiotic therapy and rehydration [facility] Medical History (Updated 02/27/25 @ 14:35 by Lea Mahmood RN) DM2 (diabetes mellitus, type 2) BPH (benign prostatic hyperplasia) High cholesterol Kidney stones Problem List clean-up per request of Phys. EHR Cmte Surgical History Status post cervical spinal fusion Problem List clean-up per request of Phys. EHR Cmte History of lithotripsy Problem List clean-up per request of Phys. EHR Cmte History of tonsillectomy Problem List clean-up per request of Phys. EHR Cmte History of cholecystectomy Problem List clean-up per request of Phys. EHR Cmte History of renal stent Problem List clean-up per request of Phys. EHR Cmte Family History (Updated 03/15/22 @ 08:32 by Provider Conversion) Mother Lung cancer Mother Cancer Legacy FamHx Problem: Diagnosed with Cancer Social History Smoking Status: Former smoker Tobacco Type: cigarettes Substance Use Type: None Meds Medications and Allergies Allergies No Known Allergies Allergy (Verified 02/26/25 16:12) Home Medications hydrochlorothiazide 12.5 mg capsule 50 mg PO DAILY 12/08/21 [History Confirmed 02/26/25] metformin 500 mg tablet 500 mg PO BID 12/08/21 [History Confirmed 02/26/25] calcium citrate 1,000 mg tablet 1,000 mg PO DAILY 02/26/25 [History Confirmed 02/26/25] dapagliflozin propanediol 5 mg tablet (Farxiga) 5 mg PO DAILY 02/26/25 [History Confirmed 02/26/25] ezetimibe 10 mg tablet 5 mg PO DAILY 02/26/25 [History Confirmed 02/26/25] potassium chloride 20 mEq tablet,extended release(part/cryst) (Klor-Con M) 20 meq PO DAILY 02/26/25 [History Confirmed 02/26/25] pravastatin 20 mg tablet 20 mg PO DAILY 02/26/25 [History Confirmed 02/26/25] semaglutide 14 mg tablet (Rybelsus) 14 mg PO DAILY 02/26/25 [History Confirmed 02/26/25] tamsulosin 0.4 mg capsule (Flomax) 0.4 mg PO DAILY 02/26/25 [History Confirmed 02/26/25] Exam Physical Exam Vital Signs: Temp Pulse Resp BP Pulse Ox O2 Del Method 98.1 F 93 16 98/58 L 96 Room Air 02/27/25 12:00 02/27/25 12:00 02/27/25 12:00 02/27/25 12:00 02/27/25 12:00 02/27/25 12:00 Const General: cooperative and no acute distress Nutritional Appearance: average body habitus Orientation: alert, awake and oriented x3 HEENT Head: normal to inspection Neck Neck: normal visual inspection Chest Chest palpation & inspection: normal inspection of the chest Resp Effort & Inspection: normal respiratory effort Auscultation: clear to auscultation bilaterally Cardio Palpation: normal PMI Rate: regular rate Rhythm: regular rhythm Heart Sounds: S1 normal, S2 normal and no murmurs Pulses: radial pulses present Skin General: no rashes or lesions noted Neuro General: patient alert, patient awake and patient oriented x3 Cognition: normal cognition Speech: speech normal Extrem General: no clubbing, cyanosis or edema Results - Cardiology Labs 02/27/25 03:13 02/27/25 03:13 Lab results: CBC 02/27/25 Range/Units 03:13 RBC 4.19 (3.90-5.60) x10E6/uL Hgb 11.9 L (13.0-17.0) g/dL Hct 35.4 L (38.8-50.0) % Plt Count 428 (150-450) x10E3/uL Neut # (Auto) 12.7 H (1.8-7.7) x10E3/uL Lymph # (Auto) 1.4 (1.00-4.8) x10E3/uL [place] # (Auto) 1.0 H (0.0-0.8) x10E3/uL Eos # (Auto) 0.0 (0.0-0.45) x10E3/uL Baso # (Auto) 0.1 (0.0-0.2) x10E3/uL Comprehensive Metabolic Panel 02/27/25 Range/Units 03:13 Sodium 137 (136-145) mmol/L Potassium 4.1 (3.5-5.1) mmol/L Chloride 105 (98-107) mmol/L Carbon Dioxide 26.3 (21.0-31.0) mmol/L BUN 13 (7-25) mg/dL Creatinine 0.98 (0.70-1.30) mg/dL Glucose 157 H (70-100) mg/dL Calcium 9.0 (8.6-10.3) mg/dL Intake and Output 02/27/25 02/27/25 02/27/25 07:59 15:59 23:59 Intake Total 1500 / 2500 1000 / 2500 Output Total 1100 / 1100 Balance 400 / 1400 1000 / 1400 Intake: IV 1100 / 2100 1000 / 2100 Lactated Ringers 1,000 ml @ 100 1000 / 1000 mls/hr IV .Q10H MENDEZ Rx#: [id number] Meropenem 1Gm-*Ns* 1 gm In 100 100 / 100 ml @ 200 mls/hr IV Q8H MENDEZ Rx#: [id number] Sodium Chloride 0.9% 1,000 ml 1 1000 / 1000 ,000 ml @ 999 mls/hr IV .Q1H1M ONE Rx#:[id number] Oral 400 / 400 Output: Urine 200 / 200 Urine Amount (Catheter) 900 / 900 Purwick 900 / 900 Other: Weight 84.7 kg Date of Last Bowel Movement 02/26/25 02/26/25 Patient Weight 02/27/25 23:59 Weight 84.7 kg Lab 02/26/25 16:13 PT 12.5 INR 1.1 APTT 25.3 A&P - Cardiology (1) Sepsis: Code(s): A41.9 - Sepsis, unspecified organism (2) UTI (urinary tract infection): Code(s): N39.0 - Urinary tract infection, site not specified (3) Elevated troponin: Code(s): R79.89 - Other specified abnormal findings of blood chemistry (4) Diabetes mellitus: Code(s): E11.9 - Type 2 diabetes mellitus without complications Plan See above, supportive care, elective outpatient stress testing modulator Documented By: Tiny Siu DO 02/27/251714 Signed By: <Electronically signed by Tiny Siu DO> 02/27/25 6669 [facility] Work Phone: 1(104) 881-185608-22-2025 [place] [address] Cardiology Consult Note Signed Patient: Dyan Harrell MR#: [id number] : 1960 Acct:[id number] Age/Sex: 64 / M Adm Date: 5 Loc: Room: [address] [place] [address] Type: ADM IN Attending Dr: Orlando Walton MD Copies to: DO Orlando Menjivar Jr, MD W Scott Sheldon, DO~ Cardiology HPI History of Present Illness Consult Date: 02/27/25 Reason for Consult: Elevated troponin HPI: Mr. Harrell is a 64 year old male seen in cardiology consultation at request of hospitalist for elevated troponin. Patient has evidence of urosepsis, sinus tachycardia; with E. coli both positivein blood and urine,status post recent laser TURP. He denies any chest heaviness, pressure or discomfort, ECG reveals sinus tachycardia with no acute ST changes and otherwise minimal upsloping ST depression at a heart rate of 129 upon entry; current heart rate 93 and current temperature 98.1 (down from 100.3 yesterday) Chest x-ray is normal; I personally reviewed echocardiogram revealing normal left ventricular function, no wall motion abnormality, ejection fraction 60 to 65%; normal valvular anatomy and functions. There is no prior history of myocardial infarction, revascularization, stroke, thromboembolic or bleeding disorder. Patient had previous stress testing a number of years ago as a screening protocol that was normal Past histories are noted for hyperlipidemia and diabetes Impression: Troponin rise associated with uro-sepsis Recommendations: No indication for invasive management, no indication for dual antiplatelet therapy; can proceed with elective stress testing in 8 to 10 weeks following successful completion of antibiotic therapy and rehydration [facility] Medical History (Updated 02/27/25 @ 14:35 by Lea Mahmood RN) DM2 (diabetes mellitus, type 2) BPH (benign prostatic hyperplasia) High cholesterol Kidney stones Problem List clean-up per request of Phys. EHR [facility] Surgical History Status post cervical spinal fusion Problem List clean-up per request of Phys. EHR Cmte History of lithotripsy Problem List clean-up per request of Phys. EHR Cmte History of tonsillectomy Problem List clean-up per request of Phys. EHR Cmte History of cholecystectomy Problem List clean-up per request of Phys. EHR Cmte History of renal stent Problem List clean-up per request of Phys. EHR Cmte Family History (Updated 03/15/22 @ 08:32 by Provider Conversion) Mother Lung cancer Mother Cancer Legacy FamHx Problem: Diagnosed with Cancer Social History Smoking Status: Former smoker Tobacco Type: cigarettes Substance Use Type: None Meds Medications and Allergies Allergies No Known Allergies Allergy (Verified 02/26/25 16:12) Home Medications hydrochlorothiazide 12.5 mg capsule 50 mg PO DAILY 12/08/21 [History Confirmed 02/26/25] metformin 500 mg tablet 500 mg PO BID 12/08/21 [History Confirmed 02/26/25] calcium citrate 1,000 mg tablet 1,000 mg PO DAILY 02/26/25 [History Confirmed 02/26/25] dapagliflozin propanediol 5 mg tablet (Farxiga) 5 mg PO DAILY 02/26/25 [History Confirmed 02/26/25] ezetimibe 10 mg tablet 5 mg PO DAILY 02/26/25 [History Confirmed 02/26/25] potassium chloride 20 mEq tablet,extended release(part/cryst) (Klor-Con M) 20 meq PO DAILY 02/26/25[History Confirmed 02/26/25] pravastatin 20 mg tablet 20 mg PO DAILY 02/26/25 [History Confirmed 02/26/25] semaglutide 14 mg tablet (Rybelsus) 14 mg PO DAILY 02/26/25 [History Confirmed 02/26/25] tamsulosin 0.4 mg capsule (Flomax) 0.4 mg PO DAILY 02/26/25 [History Confirmed 02/26/25] Exam Physical Exam Vital Signs: Temp Pulse Resp BP Pulse Ox O2 Del Method 98.1 F 93 16 98/58 L 96 Room Air 02/27/25 12:00 02/27/25 12:00 02/27/25 12:00 02/27/25 12:00 02/27/25 12:00 02/27/25 12:00 Const General: cooperative and no acute distress Nutritional Appearance: average body habitus Orientation: alert, awake and oriented x3 HEENT Head: normal to inspection Neck Neck: normal visual inspection Chest Chest palpation & inspection: normal inspection of the chest Resp Effort & Inspection: normal respiratory effort Auscultation: clear to auscultation bilaterally Cardio Palpation: normal PMI Rate: regular rate Rhythm: regular rhythm Heart Sounds: S1 normal, S2 normal and no murmurs Pulses: radial pulses present Skin General: no rashes or lesions noted Neuro General: patient alert, patient awake and patient oriented x3 Cognition: normal cognition Speech: speech normal Extrem General: no clubbing, cyanosis or edema Results - Cardiology Labs 02/27/25 03:13 02/27/25 03:13 Lab results: CBC 02/27/25 Range/Units 03:13 RBC 4.19 (3.90-5.60) x10E6/uL Hgb 11.9 L (13.0-17.0) g/dL Hct 35.4 L (38.8-50.0) % Plt Count 428 (150-450) x10E3/uL Neut # (Auto) 12.7 H (1.8-7.7) x10E3/uL Lymph # (Auto) 1.4 (1.00-4.8) x10E3/uL [place] # (Auto) 1.0 H (0.0-0.8) x10E3/uL Eos # (Auto) 0.0 (0.0-0.45) x10E3/uL Baso # (Auto) 0.1 (0.0-0.2) x10E3/uL Comprehensive Metabolic Panel 02/27/25 Range/Units 03:13 Sodium 137 (136-145) mmol/L Potassium 4.1 (3.5-5.1) mmol/L Chloride 105 (98-107) mmol/L Carbon Dioxide 26.3 (21.0-31.0) mmol/L BUN 13 (7-25) mg/dL Creatinine 0.98 (0.70-1.30) mg/dL Glucose 157 H (70-100) mg/dL Calcium 9.0 (8.6-10.3) mg/dL Intake and Output 02/27/25 02/27/25 02/27/25 07:59 15:59 23:59 Intake Total 1500 / 2500 1000 / 2500 Output Total 1100 / 1100 Balance 400 / 1400 1000 / 1400 Intake: IV 1100 / 2100 1000 / 2100 Lactated Ringers 1,000 ml @ 100 1000 / 1000 mls/hr IV .Q10H MENDEZ Rx#: [id number] Meropenem 1Gm-*Ns* 1 gm In 100 100 / 100 ml @ 200 mls/hr IV Q8H MENDEZ Rx#: [id number] Sodium Chloride 0.9% 1,000 ml 1 1000 / 1000 ,000 ml @ 999 mls/hr IV .Q1H1M ONE Rx#:[id number] Oral 400 / 400 Output: Urine 200 / 200 Urine Amount (Catheter) 900 / 900 Purwick 900 / 900 Other: Weight 84.7 kg Date of Last Bowel Movement 02/26/25 02/26/25 Patient Weight 02/27/25 23:59 Weight 84.7 kg Lab 02/26/25 16:13 PT 12.5 INR 1.1 APTT 25.3 A&P - Cardiology (1) Sepsis: Code(s): A41.9 - Sepsis, unspecified organism (2) UTI (urinary tract infection): Code(s): N39.0 - Urinary tract infection, site not specified (3) Elevated troponin: Code(s): R79.89 - Other specified abnormal findings of blood chemistry (4) Diabetes mellitus: Code(s): E11.9 - Type 2 diabetes mellitus without complications Plan See above, supportive care, elective outpatient stress testing modulator Documented By: Tiny Siu DO 02/27/251714 Signed By: 02/27/25 1722 [facility]08-22-2025 Progress note Author Orlando Walton [facility] Note Date/Time February 27, 2025 2: 40pm [facility] [address] [place] [address] Hospitalist Progress Note Signed Patient: Dyan Harrell MR#: [id number] : 1960 Acct:[id number] Age/Sex: 64 / M Adm Date: 5 Loc: 4 Room: [address] [place] [address] Type: ADM IN Attending Dr: Orlando Walton MD Copies to: ~ Date of Service: 02/27/2025 Subjective Subjective Narrative: Admitted overnight with sepsis, feels some improvement at present, continues to deny any chest pain. Remains weak, does endorse reduced p.o. intake prior to admission. Still has poor p.o. intake. Exam Physical Exam Vital Signs: Temp Pulse Resp BP Pulse Ox O2 Del Method 97.5 F L 85 18 115/66 97 Room Air 02/27/25 08:00 02/27/25 08:00 02/27/25 08:00 02/27/25 08:00 02/27/25 08:00 02/27/25 08:00 Narrative: General: cooperative tired and weak appearing, slightly improved from yesterday Orientation: alert, awake and oriented x3 Head: normal to inspection Neck: normal visual inspection Cardio: no JVD, regular rate, regular rhythm Chest palpation & inspection: normal inspection of the chest Resp Effort & Inspection: normal respiratory effort Abd: soft, non-tender, non-distended Extremities: Warm well perfused, no edema Objective Lab Results 02/27/25 03:13 02/27/25 03:13 Microbiology Results Microbiology 02/26/25 16:15 Blood - Left Forearm Blood Culture - Preliminary 02/26/25 16:20 Blood - Right Forearm Blood Culture - Preliminary Escherichia coli 02/26/25 16:20 Blood - Right Forearm Bacterial ID (NA Multiplex Assay) - Final 02/26/25 16:25 Nasopharyngeal Respiratory Panel (PCR) - Final Meds Allergies and Active Meds Allergies No Known Allergies Allergy (Verified 02/26/25 16:12) Active Meds: Active Medications Generic Name Dose Route Start Last Admin Trade Name Freq PRN Reason Stop Dose Admin Acetaminophen 1,000 mg 02/26/25 21:57 02/26/25 22:16 Acetaminophen 500 Mg Tablet PO 02/26/26 21:56 1,000 mg Q6H PRN Administration Fever or Pain Aspirin 81 mg 02/27/25 09:00 Aspirin 81 Mg Tab.Chew PO 02/27/26 08:59 DAILY MENDEZ Enoxaparin Sodium 90 mg 02/26/25 22:30 02/26/25 22:41 Enoxaparin 90 Mg/0.9 Ml From Multidose Vial SUBCUT 02/26/26 22:29 90 mg Q12HR.10A.10P MENDEZ Administration Meropenem 1 gm in 100 mls @ 33.333 mls/hr 02/26/25 20:00 02/27/25 06:30 Merrem IV Infused Q8H MENDEZ Infusion Lactated Ringer's 1,000 mls @ 100 mls/hr 02/26/25 19:45 02/27/25 06:01 Lactated Ringers IV 02/26/26 19:44 100 mls/hr .Q10H MENDEZ Infusion Sodium Chloride 0 ml 02/26/25 16:11 02/26/25 21:58 Sodium Chloride 0.9 % 10 Ml Syringe IV-PUSH 02/26/26 16:10 10 ml PRN PRN Administration Flush A&P - Hospitalist Assessment/Plan (1) Elevated troponin: (2) UTI (urinary tract infection): (3) Sepsis: (4) Diabetes mellitus: Plan Dyan Harrell is a 64-year-old gentleman h/o diabetes mellitus, HTN, former smoker of 30+ years, status post recent prostatectomy on 02/24/25 after shock wave lithotripsy, presented to [facility] emergency room on 02/26/2025 with fevers and chills, found to have evidence of suspected urosepsis prompting request for medical admission. 1. Sepsis 2/2 UTI in the setting of recent urgent prostatectomy - In the emergency room WBC count 17.8, hemoglobin 13.4, platelet count 486, sodium 137, potassium 3.9, BUN 15, creatinine 1.02, glucose 154, lactic acid 4.2. High-sensitivity troponin I 102, BNP 31. UA shows innumerable WBCs, 4+ leukocyte esterase. CT abdomen shows postsurgical changes of the prostate, fociof air within the prostate gland and urinary bladder wall thickening. - Did have UTI prior to procedure, urine culture from 02/13/2025 and 02/15/2025 showed E. coli ESBL - Start sepsis protocol with 2 L crystalloids, started antibiotics with meropenem 1 g every 8 hours - Received additional 1 L bolus overnight, additional 1 L bolus today - IV fluids with LR 100 cc/h - troponin peaked at 773, started on therapeutic lovenox overnight - echo pending, cardiology consulted - Urine and blood cultures pending, both prelim positive for ESBL 2. h/o diabetes mellitus, HTN, former smoker of 30+ years - Hold SGLT2 inhibitor for next few days - Hold HCTZ and tamsulosin Diet: carb controlled Daily Labs: CBC, BMP Lines/Drains: PIV DVT ppx: Lovenox Code status: Full Status: inpatient Documented By: Orlando Walton MD 02/27/25 0930 Signed By: <Electronically signed by Orlando Walton MD> 02/27/25 [facility] Work Phone: 1(186) 288-725008-22-2025 [place] [address] Hospitalist Progress Note Signed Patient: Dyan Harrell MR#: [id number] : 1960 Acct:[id number] Age/Sex: 64 / M Adm Date: 5 Loc: Room: [address] [place] [address] Type: ADM IN Attending Dr: Orlando Walton MD Copies to: ~ Date of Service: 02/27/2025 Subjective Subjective Narrative: Admitted overnight with sepsis, feels some improvement at present, continues to deny any chest pain. Remains weak, does endorse reduced p.o. intake prior to admission. Still has poor p.o. intake. Exam Physical Exam Vital Signs: Temp Pulse Resp BP Pulse Ox O2 Del Method 97.5 F L 85 18 115/66 97 Room Air 02/27/25 08:00 02/27/25 08:00 02/27/25 08:00 02/27/25 08:00 02/27/25 08:00 02/27/25 08:00 Narrative: General: cooperative tired and weak appearing, slightly improved from yesterday Orientation: alert, awake and oriented x3 Head: normal to inspection Neck: normal visual inspection Cardio: no JVD, regular rate, regular rhythm Chest palpation & inspection: normal inspection of the chest Resp Effort & Inspection: normal respiratory effort Abd: soft, non-tender, non-distended Extremities: Warm well perfused, no edema Objective Lab Results 02/27/25 03:13 02/27/25 03:13 Microbiology Results Microbiology 02/26/25 16:15 Blood - Left Forearm Blood Culture - Preliminary 02/26/25 16:20 Blood - Right Forearm Blood Culture - Preliminary Escherichia coli 02/26/25 16:20 Blood - Right Forearm Bacterial ID (NA Multiplex Assay) - Final 02/26/25 16:25 Nasopharyngeal Respiratory Panel (PCR) - Final Meds Allergies and Active Meds Allergies No Known Allergies Allergy (Verified 02/26/25 16:12) Active Meds: Active Medications Generic Name Dose Route Start Last Admin Trade Name Freq PRN Reason Stop Dose Admin Acetaminophen 1,000 mg 02/26/25 21:57 02/26/25 22:16 Acetaminophen 500 Mg Tablet PO 02/26/26 21:56 1,000 mg Q6H PRN Administration Fever or Pain Aspirin 81 mg 02/27/25 09:00 Aspirin 81 Mg Tab.Chew PO 02/27/26 08:59 DAILY MENDEZ Enoxaparin Sodium 90 mg 02/26/25 22:30 02/26/25 22:41 Enoxaparin 90 Mg/0.9 Ml From Multidose Vial SUBCUT 02/26/26 22:29 90 mg Q12HR.10A.10P MENDEZ Administration Meropenem 1 gm in 100 mls @ 33.333 mls/hr 02/26/25 20:00 02/27/25 06:30 Merrem IV Infused Q8H MENDEZ Infusion Lactated Ringer's 1,000 mls @ 100 mls/hr 02/26/25 19:45 02/27/25 06:01 Lactated Ringers IV 02/26/26 19:44 100 mls/hr .Q10H MENDEZ Infusion Sodium Chloride 0 ml 02/26/25 16:11 02/26/25 21:58 Sodium Chloride 0.9 % 10 Ml Syringe IV-PUSH 02/26/26 16:10 10 ml PRN PRN Administration Flush A&P - Hospitalist Assessment/Plan (1) Elevated troponin: (2) UTI (urinary tract infection): (3) Sepsis: (4) Diabetes mellitus: Plan Dyan Harrell is a 64-year-old gentleman h/o diabetes mellitus, HTN, former smoker of 30+ years, status post recent prostatectomy on 02/24/25 after shock wave lithotripsy, presented to [facility] emergency room on 02/26/2025 with fevers and chills, found to have evidence of suspected urosepsis prompting request for medical admission. 1. Sepsis 2/2 UTI in the setting of recent urgent prostatectomy - In the emergency room WBC count 17.8, hemoglobin 13.4, platelet count 486, sodium 137, potassium 3.9, BUN 15, creatinine 1.02, glucose 154, lactic acid 4.2. High-sensitivity troponin I 102, BNP 31.UA shows innumerable WBCs, 4+ leukocyte esterase. CT abdomen shows postsurgical changes of the prostate, fociof air within the prostate gland and urinary bladder wall thickening. - Did have UTI prior to procedure, urine culture from 02/13/2025 and 02/15/2025 showed E. coli ESBL - Start sepsis protocol with 2 L crystalloids, started antibiotics with meropenem 1 g every 8 hours - Received additional 1 L bolus overnight, additional 1 L bolus today - IV fluids with LR 100 cc/h - troponin peaked at 773, started on therapeutic lovenox overnight - echo pending, cardiology consulted - Urine and blood cultures pending, both prelim positive for ESBL 2. h/o diabetes mellitus, HTN, former smoker of 30+ years - Hold SGLT2 inhibitor for next few days - Hold HCTZ and tamsulosin Diet: carb controlled Daily Labs: CBC, BMP Lines/Drains: PIV DVT ppx: Lovenox Code status: Full Status: inpatient Documented By: Orlando Walton MD 02/27/25 0930 Signed By: 02/27/25 1440 [facility]08-22-2025 Note [id number]08-21-2025 History and physical note Author Orlando Walton [facility] Note Date/Time February 26, 2025 9: 34pm [facility] [address] [place] [address] Hospitalist H&P Signed Patient: Dyan Harrell MR#: [id number] : 1960 Acct:[id number] Age/Sex: 64 / M Adm Date: 5 Loc: 4 Room: [address] [place] [address] Type: ADM IN Attending Dr: Orlando Walton MD Copies to: Marek Santiago Jr, DO Orlando Walton MD~ HPI DATE OF EXAMINATION: 02/26/25 CHIEF COMPLAINT: Fevers and chills HISTORY OF PRESENT ILLNESS: Dyan Harrell is a 64-year-old gentleman with diabetes,mellitus, former smoker of 30+ years, status post recent prostatectomy on 02/24/25 after shock wave lithotripsy, presented to [facility] emergency room on 02/26/2025 with fevers and chills, found to have evidence of suspected urosepsis prompting request for medical admission. On assessment at bedside in the emergency room patient resting in bed tired appearing but not in distress, states that he was discharged with antibiotics and felt he was improving and then developed sudden onset fevers, chills and severe fatigue this morning prompting presentation to the emergency room. Denies any chest pain, nausea, vomiting, diarrhea at this time. In the emergency room WBC count 17.8, hemoglobin 13.4, platelet count 486, sodium 137, potassium 3.9, BUN 15, creatinine 1.02, glucose 154, lactic acid 4.2. High-sensitivity troponin I 102, BNP 31. UA shows innumerable WBCs, 4+ leukocyte esterase. CT abdomen shows postsurgical changes of the prostate, fociof air within the prostate gland and urinary bladder wall thickening. Review of Systems Review of Systems All other systems reviewed & are negative unless noted below or in HPI [facility] Medical History (Updated 02/26/25 @ 21:28 by Orlando Walton MD) Kidney stones Problem List clean-up per request of Phys. EHR [facility] Surgical History Status post cervical spinal fusion Problem List clean-up per request of Phys. EHR Cmte History of lithotripsy Problem List clean-up per request of Phys. EHR Cmte History of tonsillectomy Problem List clean-up per request of Phys. EHR Cmte History of cholecystectomy Problem List clean-up per request of Phys. EHR Cmte History of renal stent Problem List clean-up per request of Phys. EHR Cmte Family History (Updated 03/15/22 @ 08:32 by Provider Conversion) Mother Lung cancer Mother Cancer Legacy FamHx Problem: Diagnosed with Cancer Social History Smoking Status: Former smoker Tobacco Type: cigarettes Substance Use Type: None Meds Medications and Allergies Allergies No Known Allergies Allergy (Verified 02/26/25 16:12) Home Medications hydrochlorothiazide 12.5 mg capsule 50 mg PO DAILY 12/08/21 [History Confirmed 02/26/25] metformin 500 mg tablet 500 mg PO BID 12/08/21 [History Confirmed 02/26/25] calcium citrate 1,000 mg tablet 1,000 mg PO DAILY 02/26/25 [History Confirmed 02/26/25] dapagliflozin propanediol 5 mg tablet (Farxiga) 5 mg PO DAILY 02/26/25 [History Confirmed 02/26/25] ezetimibe 10 mg tablet 5 mg PO DAILY 02/26/25 [History Confirmed 02/26/25] potassium chloride 20 mEq tablet,extended release(part/cryst) (Klor-Con M) 20 meq PO DAILY 02/26/25 [History Confirmed 02/26/25] pravastatin 20 mg tablet 20 mg PO DAILY 02/26/25 [History Confirmed 02/26/25] semaglutide 14 mg tablet (Rybelsus) 14 mg PO DAILY 02/26/25 [History Confirmed 02/26/25] tamsulosin 0.4 mg capsule (Flomax) 0.4 mg PO DAILY 02/26/25 [History Confirmed 02/26/25] Exam Physical Exam Vital Signs: Temp Pulse Resp BP Pulse Ox O2 Del Method 98.8 F 124 H 22 144/80 H 96 Room Air 02/26/25 16:04 02/26/25 19:28 02/26/25 19:28 02/26/25 19:28 02/26/25 19:28 02/26/25 19:28 Narrative: General: cooperative tired and weak appearing Orientation: alert, awake and oriented x3 Head: normal to inspection Neck: normal visual inspection Cardio: no JVD, fast regular rate, regular rhythm Chest palpation & inspection: normal inspection of the chest Resp Effort & Inspection: normal respiratory effort Abd: soft, non-tender, non-distended Extremities: Warm well perfused, no edema Results - Hospitalist H&P Lab Results Labs: Laboratory Last Values Corrected WBC 17.8 X10E3/uL (4.1-10.5) H 02/26/25 16:13 Uncorrected WBC Count 17.8 x10E3/uL (4.1-10.5) H 02/26/25 16:13 RBC 4.71 x10E6/uL (3.90-5.60) 02/26/25 16:13 Hgb 13.4 g/dL (13.0-17.0) 02/26/25 16:13 Hct 39.7 % (38.8-50.0) 02/26/25 16:13 MCV 84.3 fl (83.5-101) 02/26/25 16:13 MCH 28.5 pg (27.5-35.2) 02/26/25 16:13 MCHC 33.8 g/dL (32.5-35.6) 02/26/25 16:13 RDW 13.8 % (12.0-14.8) 02/26/25 16:13 Plt Count 486 x10E3/uL (150-450) H 02/26/25 16:13 MPV 7.2 fl (6.6-10.1) 02/26/25 16:13 Neut % (Auto) 91.6 % (.) 02/26/25 16:13 Lymph % (Auto) 5.3 % (.) 02/26/25 16:13 [place] % (Auto) 1.4 % (.) 02/26/25 16:13 Eos % (Auto) 1.0 % (.) 02/26/25 16:13 Baso % (Auto) 0.7 % (.) 02/26/25 16:13 Nucleat RBC Rel Count 0.0 /100 WBC (0-0.5) 02/26/25 16:13 Neut # (Auto) 16.3 x10E3/uL (1.8-7.7) H 02/26/25 16:13 Lymph # (Auto) 0.9 x10E3/uL (1.00-4.8) L 02/26/25 16:13 [place] # (Auto) 0.3 x10E3/uL (0.0-0.8) 02/26/25 16:13 Eos # (Auto) 0.2 x10E3/uL (0.0-0.45) 02/26/25 16:13 Baso # (Auto) 0.1 x10E3/uL (0.0-0.2) 02/26/25 16:13 Monocyte Dist Width 26.96 % (0.00-20.00) H 02/26/25 16:13 PT 12.5 Seconds (9.0-12.9) 02/26/25 16:13 INR 1.1 02/26/25 16:13 APTT 25.3 Seconds (25.1-36.5) 02/26/25 16:13 PHA Creatinine Clear 78.19 02/26/25 16:13 Sodium 137 mmol/L (136-145) 02/26/25 16:13 Potassium 3.9 mmol/L (3.5-5.1) 02/26/25 16:13 Chloride 101 mmol/L (98-107) 02/26/25 16:13 Carbon Dioxide 25.3 mmol/L (21.0-31.0) 02/26/25 16:13 Anion Gap 14.6 mEq/L (6.0-15.0) 02/26/25 16:13 BUN 15 mg/dL (7-25) 02/26/25 16:13 Creatinine 1.02 mg/dL (0.70-1.30) 02/26/25 16:13 Est GFR (CKD-EPI) > 60.0 mL/Min 02/26/25 16:13 Glucose 154 mg/dL (70-100) H 02/26/25 16:13 Lactic Acid 4.2 mmol/L (0.5-1.9) H* 02/26/25 16:13 Calcium 10.1 mg/dL (8.6-10.3) 02/26/25 16:13 Magnesium 1.6 mg/dL (1.9-2.7) L 02/26/25 16:13 Total Bilirubin 0.8 mg/dl (0.3-1.0) 02/26/25 16:13 AST 15 U/L (13-39) 02/26/25 16:13 ALT 20 U/L (7-52) 02/26/25 16:13 Alkaline Phosphatase 70 U/L (34-104) 02/26/25 16:13 Total Creatine Kinase 17 U/L (30-223) L 02/26/25 16:13 Troponin I High Sens 102 ng/L (0-20) H* 02/26/25 16:13 B-Natriuretic Peptide 31.0 pg/mL (5-100) 02/26/25 16:13 Total Protein 7.7 gm/dL (6.4-8.9) 02/26/25 16:13 Albumin 3.8 gm/dL (3.5-5.7) 02/26/25 16:13 Globulin 3.9 gm/dL 02/26/25 16:13 Albumin/Globulin Ratio 1.0 02/26/25 16:13 Urine Color Light-orange (Yellow) A 02/26/25 16:25 Urine Appearance Turbid (Clear) A 02/26/25 16:25 Urine pH 6.0 (5.0-9.0) 02/26/25 16:25 Ur Specific [place] 1.014 (1.001-1.030) 02/26/25 16:25 Urine Protein 100 mg/dL (Negative) H 02/26/25 16:25 Urine Glucose (UA) >=1000 mg/dL (Normal) H 02/26/25 16:25 Urine Ketones Negative (Negative) 02/26/25 16:25 Urine Occult Blood 3+ (Negative) H 02/26/25 16:25 Urine Nitrite Negative (Negative) 02/26/25 16:25 Urine Bilirubin Negative (Negative) 02/26/25 16:25 Urine Urobilinogen Normal mg/dL (Normal) 02/26/25 16:25 Ur Leukocyte Esterase 4+ (Negative) H 02/26/25 16:25 Urine RBC Innumerable /HPF (0-4) H 02/26/25 16:25 Urine WBC Innumerable /HPF (0-4) H 02/26/25 16:25 Urine WBC Clumps Many /LPF (None Seen) H 02/26/25 16:25 Ur Squamous Epith Cells N/A 02/26/25 16:25 Urine Bacteria 4+ /HPF (None Seen) H 02/26/25 16:25 Hyaline Casts None /LPF (0-8) 02/26/25 16:25 Urine Mucus 2+ /LPF A 02/26/25 16:25 COVID-19 Clin Com Not detected (Not Detecte) 02/26/25 16:25 Microbiology Results Micro: Microbiology - Results from entire visit 02/26/25 16:25 Nasopharyngeal Respiratory Panel (PCR) - Final Assessment & Plan Assessment/Plan (1) Elevated troponin: (2) UTI (urinary tract infection): (3) Sepsis: (4) Diabetes mellitus: Plan Dyan Harrell is a 64-year-old gentleman h/o diabetes mellitus, HTN, former smoker of 30+ years, status post recent prostatectomy on 02/24/25 after shock wave lithotripsy, presented to [facility] emergency room on 02/26/2025 with fevers and chills, found to have evidence of suspected urosepsis prompting request for medical admission. 1. Sepsis 2/2 UTI in the setting of recent urgent prostatectomy - In the emergency room WBC count 17.8, hemoglobin 13.4, platelet count 486, sodium 137, potassium 3.9, BUN 15, creatinine 1.02, glucose 154, lactic acid 4.2. High-sensitivity troponin I 102, BNP 31. UA shows innumerable WBCs, 4+ leukocyte esterase. CT abdomen shows postsurgical changes of the prostate, fociof air within the prostate gland and urinary bladder wall thickening. - Did have UTI prior to procedure, urine culture from 02/13/2025 and 02/15/2025 showed E. coli ESBL - Start sepsis protocol with 2 L crystalloids, started antibiotics with meropenem 1 g every 8 hours - IV fluids with LR 100 cc/h - Troponin elevation likely secondary to demand ischemia, continue to trend to check echo for LV function - Urine and blood cultures pending 2. h/o diabetes mellitus, HTN, former smoker of 30+ years - Hold SGLT2 inhibitor with consideration for permanent discontinuation - Hold HCTZ and tamsulosin Diet: carb controlled Daily Labs: CBC, BMP Lines/Drains: PIV DVT ppx: Lovenox Code status: Full Status: inpatient IP vs OBS Justification Based on differential dx, clinical care plan, and risk of adverse events, if untreated, in my clinical judgement this patient requires an acute care setting as: INPATIENT because of an expectation of an over 2 midnight stay. Estimated length of stay (# of days): 3 Documented By: Orlando Walton MD 02/26/251939 Signed By: <Electronically signed by Orlando Walton MD> 02/26/25 [facility] Work Phone: 1(114) 445-970908-21-2025 [place] [address] Hospitalist H&P Signed Patient: Dyan Harrell MR#: [id number] : 1960 Acct:[id number] Age/Sex: 64 / M Adm Date: 5 Loc: Room: [address] [place] [address] Type: ADM IN Attending Dr: Orlando Walton MD Copies to: Marek Santiago Jr, DO Orlando Walton MD~ HPI DATE OF EXAMINATION: 02/26/25 CHIEF COMPLAINT: Fevers and chills HISTORY OF PRESENT ILLNESS: Dyan Harrell is a 64-year-old gentleman with diabetes,mellitus, former smoker of 30+ years, status post recent prostatectomy on 02/24/25 after shock wave lithotripsy, presented to [facility] emergency room on 02/26/2025 with fevers and chills, found to have evidence of suspected urosepsis prompting request for medical admission. On assessment at bedside in the emergency room patient resting in bed tired appearing but not in distress, states that he was discharged with antibiotics and felt he was improving and then developed sudden onset fevers, chills and severe fatigue this morning prompting presentation to the emergency room. Denies any chest pain, nausea, vomiting, diarrhea at this time. In the emergency room WBC count 17.8, hemoglobin 13.4, platelet count 486, sodium 137, potassium 3.9, BUN 15, creatinine 1.02, glucose 154, lactic acid 4.2. High-sensitivity troponin I 102, BNP 31. UA shows innumerable WBCs, 4+ leukocyte esterase. CT abdomen shows postsurgical changes of the prostate, fociof air within the prostate gland and urinary bladder wall thickening. Review of Systems Review of Systems All other systems reviewed & are negative unless noted below or in HPI [facility] Medical History (Updated 02/26/25 @ 21:28 by Orlando Walton MD) Kidney stones Problem List clean-up per request of Phys. EHR Cmte Surgical History Status post cervical spinal fusion Problem List clean-up per request of Phys. EHR Cmte History of lithotripsy Problem List clean-up per request of Phys. EHR Cmte History of tonsillectomy Problem List clean-up per request of Phys. EHR Cmte History of cholecystectomy Problem List clean-up per request of Phys. EHR Cmte History of renal stent Problem List clean-up per request of Phys. EHR Cmte Family History (Updated 03/15/22 @ 08:32 by Provider Conversion) Mother Lung cancer Mother Cancer Legacy FamHx Problem: Diagnosed with Cancer Social History Smoking Status: Former smoker Tobacco Type: cigarettes Substance Use Type: None Meds Medications and Allergies Allergies No Known Allergies Allergy (Verified 02/26/25 16:12) Home Medications hydrochlorothiazide 12.5 mg capsule 50 mg PO DAILY 12/08/21 [History Confirmed 02/26/25] metformin 500 mg tablet 500 mg PO BID 12/08/21 [History Confirmed 02/26/25] calcium citrate 1,000 mg tablet 1,000 mg PO DAILY 02/26/25 [History Confirmed 02/26/25] dapagliflozin propanediol 5 mg tablet (Farxiga) 5 mg PO DAILY 02/26/25 [History Confirmed 02/26/25] ezetimibe 10 mg tablet 5 mg PO DAILY 02/26/25 [History Confirmed 02/26/25] potassium chloride 20 mEq tablet,extended release(part/cryst) (Klor-Con M) 20 meq PO DAILY 02/26/25[History Confirmed 02/26/25] pravastatin 20 mg tablet 20 mg PO DAILY 02/26/25 [History Confirmed 02/26/25] semaglutide 14 mg tablet (Rybelsus) 14 mg PO DAILY 02/26/25 [History Confirmed 02/26/25] tamsulosin 0.4 mg capsule (Flomax) 0.4 mg PO DAILY 02/26/25 [History Confirmed 02/26/25] Exam Physical Exam Vital Signs: Temp Pulse Resp BP Pulse Ox O2 Del Method 98.8 F 124 H 22 144/80 H 96 Room Air 02/26/25 16:04 02/26/25 19:28 02/26/25 19:28 02/26/25 19:28 02/26/25 19:28 02/26/25 19:28 Narrative: General: cooperative tired and weak appearing Orientation: alert, awake and oriented x3 Head: normal to inspection Neck: normal visual inspection Cardio: no JVD, fast regular rate, regular rhythm Chest palpation & inspection: normal inspection of the chest Resp Effort & Inspection: normal respiratory effort Abd: soft, non-tender, non-distended Extremities: Warm well perfused, no edema Results - Hospitalist H&P Lab Results Labs: Laboratory Last Values Corrected WBC 17.8 X10E3/uL (4.1-10.5) H 02/26/25 16:13 Uncorrected WBC Count 17.8 x10E3/uL (4.1-10.5) H 02/26/25 16:13 RBC 4.71 x10E6/uL (3.90-5.60) 02/26/25 16:13 Hgb 13.4 g/dL (13.0-17.0) 02/26/25 16:13 Hct 39.7 % (38.8-50.0) 02/26/25 16:13 MCV 84.3 fl (83.5-101) 02/26/25 16:13 MCH 28.5 pg (27.5-35.2) 02/26/25 16:13 MCHC 33.8 g/dL (32.5-35.6) 02/26/25 16:13 RDW 13.8 % (12.0-14.8) 02/26/25 16:13 Plt Count 486 x10E3/uL (150-450) H 02/26/25 16:13 MPV 7.2 fl (6.6-10.1) 02/26/25 16:13 Neut % (Auto) 91.6 % (.) 02/26/25 16:13 Lymph % (Auto) 5.3 % (.) 02/26/25 16:13 [place] % (Auto) 1.4 % (.) 02/26/25 16:13 Eos % (Auto) 1.0 % (.) 02/26/25 16:13 Baso % (Auto) 0.7 % (.) 02/26/25 16:13 Nucleat RBC Rel Count 0.0 /100 WBC (0-0.5) 02/26/25 16:13 Neut # (Auto) 16.3 x10E3/uL (1.8-7.7) H 02/26/25 16:13 Lymph # (Auto) 0.9 x10E3/uL (1.00-4.8) L 02/26/25 16:13 [place] # (Auto) 0.3 x10E3/uL (0.0-0.8) 02/26/25 16:13 Eos # (Auto) 0.2 x10E3/uL (0.0-0.45) 02/26/25 16:13 Baso # (Auto) 0.1 x10E3/uL (0.0-0.2) 02/26/25 16:13 Monocyte Dist Width 26.96 % (0.00-20.00) H 02/26/25 16:13 PT 12.5 Seconds (9.0-12.9) 02/26/25 16:13 INR 1.1 02/26/25 16:13 APTT 25.3 Seconds (25.1-36.5) 02/26/25 16:13 PHA Creatinine Clear 78.19 02/26/25 16:13 Sodium 137 mmol/L (136-145) 02/26/25 16:13 Potassium 3.9 mmol/L (3.5-5.1) 02/26/25 16:13 Chloride 101 mmol/L (98-107) 02/26/25 16:13 Carbon Dioxide 25.3 mmol/L (21.0-31.0) 02/26/25 16:13 Anion Gap 14.6 mEq/L (6.0-15.0) 02/26/25 16:13 BUN 15 mg/dL (7-25) 02/26/25 16:13 Creatinine 1.02 mg/dL (0.70-1.30) 02/26/25 16:13 Est GFR (CKD-EPI) > 60.0 mL/Min 02/26/25 16:13 Glucose 154 mg/dL (70-100) H 02/26/25 16:13 Lactic Acid 4.2 mmol/L (0.5-1.9) H* 02/26/25 16:13 Calcium 10.1 mg/dL (8.6-10.3) 02/26/25 16:13 Magnesium 1.6 mg/dL (1.9-2.7) L 02/26/25 16:13 Total Bilirubin 0.8 mg/dl (0.3-1.0) 02/26/25 16:13 AST 15 U/L (13-39) 02/26/25 16:13 ALT 20 U/L (7-52) 02/26/25 16:13 Alkaline Phosphatase 70 U/L (34-104) 02/26/25 16:13 Total Creatine Kinase 17 U/L (30-223) L 02/26/25 16:13 Troponin I High Sens 102 ng/L (0-20) H* 02/26/25 16:13 B-Natriuretic Peptide 31.0 pg/mL (5-100) 02/26/25 16:13 Total Protein 7.7 gm/dL (6.4-8.9) 02/26/25 16:13 Albumin 3.8 gm/dL (3.5-5.7) 02/26/25 16:13 Globulin 3.9 gm/dL 02/26/25 16:13 Albumin/Globulin Ratio 1.0 02/26/25 16:13 Urine Color Light-orange (Yellow) A 02/26/25 16: Urine Appearance Turbid (Clear) A 02/26/25 16:25 Urine pH 6.0 (5.0-9.0) 02/26/25 16:25 Ur Specific [place] 1.014 (1.001-1.030) 02/26/25 16:25 Urine Protein 100 mg/dL (Negative) H 02/26/25 16:25 Urine Glucose (UA) >=1000 mg/dL (Normal) H 02/26/25 16:25 Urine Ketones Negative (Negative) 02/26/25 16:25 Urine Occult Blood 3+ (Negative) H 02/26/25 16:25 Urine Nitrite Negative (Negative) 02/26/25 16:25 Urine Bilirubin Negative (Negative) 02/26/25 16:25 Urine Urobilinogen Normal mg/dL (Normal) 02/26/25 16:25 Ur Leukocyte Esterase 4+ (Negative) H 02/26/25 16:25 Urine RBC Innumerable /HPF (0-4) H 02/26/25 16:25 Urine WBC Innumerable /HPF (0-4) H 02/26/25 16:25 Urine WBC Clumps Many /LPF (None Seen) H 02/26/25 16:25 Ur Squamous Epith Cells N/A 02/26/25 16:25 Urine Bacteria 4+ /HPF (None Seen) H 02/26/25 16:25 Hyaline Casts None /LPF (0-8) 02/26/25 16:25 Urine Mucus 2+ /LPF A 02/26/25 16:25 COVID-19 Clin Com Not detected (Not Detecte) 02/26/25 16:25 Microbiology Results Micro: Microbiology - Results from entire visit 02/26/25 16:25 Nasopharyngeal Respiratory Panel (PCR) - Final Assessment & Plan Assessment/Plan (1) Elevated troponin: (2) UTI (urinary tract infection): (3) Sepsis: (4) Diabetes mellitus: Plan Dyan Harrell is a 64-year-old gentleman h/o diabetes mellitus, HTN, former smoker of 30+ years, status post recent prostatectomy on 02/24/25 after shock wave lithotripsy, presented to [facility] emergency room on 02/26/2025 with fevers and chills, found to have evidence of suspected urosepsis prompting request for medical admission. 1. Sepsis 2/2 UTI in the setting of recent urgent prostatectomy - In the emergency room WBC count 17.8, hemoglobin 13.4, platelet count 486, sodium 137, potassium 3.9, BUN 15, creatinine 1.02, glucose 154, lactic acid 4.2. High-sensitivity troponin I 102, BNP 31.UA shows innumerable WBCs, 4+ leukocyte esterase. CT abdomen shows postsurgical changes of the prostate, fociof air within the prostate gland and urinary bladder wall thickening. - Did have UTI prior to procedure, urine culture from 02/13/2025 and 02/15/2025 showed E. coli ESBL - Start sepsis protocol with 2 L crystalloids, started antibiotics with meropenem 1 g every 8 hours - IV fluids with LR 100 cc/h - Troponin elevation likely secondary to demand ischemia, continue to trend to check echo for LV function - Urine and blood cultures pending 2. h/o diabetes mellitus, HTN, former smoker of 30+ years - Hold SGLT2 inhibitor with consideration for permanent discontinuation - Hold HCTZ and tamsulosin Diet: carb controlled Daily Labs: CBC, BMP Lines/Drains: PIV DVT ppx: Lovenox Code status: Full Status: inpatient IP vs OBS Justification Based on differential dx, clinical care plan, and risk of adverse events, if untreated, in my clinical judgement this patient requires an acute care setting as: INPATIENT because of an expectation ofan over 2 midnight stay. Estimated length of stay (# of days): 3 Documented By: Orlando Walton MD 02/26/251939 Signed By: 02/26/252133 [facility]08-21-2025 Evaluation note* Diagnosis Onset Date Resolution Status Admit Date Diabetes mellitus acute February 26, 2025 7:28pm Elevated troponin acute February 26, 2025 7:28pm Sepsis acute February 26 025 7:28pm UTI (urinary tract infection) acute February 26, 2025 7:28pm [facility] Work Phone: 1(438) 571-738008-21-2025 [facility] Main [place] [address] [place] [address] CT Scan Report Signed Patient: Dyan Harrell MR#: [id number] : 1960 Acct:[id number] Age/Sex: 64 / M ADM Date: 5 Loc: ER Room: Type: [facility] ER Attending Dr: Copies to: Melody Siddiqi APRN~ Ordering Provider: Melody Siddiqi APRN Date of Service: 02/26/25 CT/CT abdomen pelvis w con: Pain, recent prostate surgery CT Abdomen and Pelvis withcontrast TECHNIQUE: Axial imaging with 2-D reconstruction. . The CT exam was performed using one or more thefollowing dose reduction techniques: Automated exposure control, adjustment of the MA and/or Kv according to patient size, or use of theiterative reconstruction technique. COMPARISON: None History: Fever and chills. Nausea and vomiting. Recent prostate surgery LIMITATIONS: None LOWER THORAX Unremarkable coronary artery calcification LIVER: Unremarkable GALLBLADDER: Cholecystectomy clips identified. BILE DUCTS: No dilatation SPLEEN: Unremarkable PANCREAS: Chronic pancreatitis ADRENAL GLANDS: Unremarkable KIDNEYS: Bilateral Nephrolithiasis measuring up to 4 mm. No obstructive uropathy. AORTA: No abdominal aortic aneurysm identified. Atherosclerosis. RETROPERITONEUM: No significant retroperitoneal abnormalities identified. MESENTERY:Unremarkable STOMACH:Unremarkable SMALL BOWEL: The small bowel loops are nondistended. APPENDIX: The appendix is normal. COLON: Unremarkable URINARY BLADDER: Urinary bladder wall thickening. Underdistention versus cystitis. Air within the lumen. Correlate with catheterization. REPRODUCTIVE SYSTEM: Prostatomegaly. Foci of air throughout the prostate. Heterogeneous enhancement. PNEUMOPERITONEUM: None PERITONEAL FLUID:None BONY STRUCTURES: Unremarkable ABDOMINAL WALL: Unremarkable CT/CT abdomen pelvis w con IMPRESSION: Postsurgical changes of the prostate gland. Foci of air within the prostate gland. Correlate with recent surgery versus infection. Urinary bladder wall thickening suggesting cystitis. Airwithin the urinary bladder. Correlate with catheterization. Nephrolithiasis without obstructive uropathy. Impression dictated by: Herman Harper M.D. 02/26/2025 5:38 PM Dictation Location: [place] [address] Transcribed By: [facility] 02/26/25 173 Dictated By: Herman Harper DO 02/26/25 1734 Signed By: 02/26/25 1738 [facility]08-20-2025 Note [id number] 02-25-2025 [id number]08-19-2025 [facility] SURGERY Clinical Discharge Summary PERSON INFORMATION Name DYAN HARRELL Age 64 Years 1960 Sex MALE Language Jordanian PCP MAREK SANTIAGO JR. Marital Status Single [facility] Service Ambulatory Surgery N [id number] Acct# Arrival 02/24/2025 05:41:57 Visit Reason SURGERY - [facility] Acuity LOS 006 22:46 Address: [address] [place] [id number] Comment: PROVIDER INFORMATION VITALS INFORMATION Vital Sign Triage Latest Temp Oral Temp Temporal Temp Intravascular Temp Axillary Temp Rectal 02 Sat 100 % 99 % Respiratory Rate Peripheral Pulse Rate Apical Heart Rate Blood Pressure / 83 mmHg / 77 mmHg Comment: MEDICAL INFORMATION Allergy Info: No known allergies Prescriptions Given: calcium carbonate (calcium carbonate 1000 mg oral tablet, chewable) 1 tab(s) Oral (given by mouth) every day. cephalexin (Keflex 500 mg oral capsule) 1 cap(s) Oral (given by mouth) every 8 hours.. Refills: 0. dapagliflozin (Farxiga 10 mg oral tablet) 0.5 tab(s) Oral (given by mouth) every day. ezetimibe (ezetimibe 10 mg oral tablet) 0.5 tab(s) Oral (given by mouth) once a day (at bedtime). hydroCHLOROthiazide (hydroCHLOROthiazide 50 mg oral tablet) 1 tab(s) Oral (given by mouth) every day. metFORMIN (metFORMIN 500 mg oral tablet) 1 tab(s) Oral (given by mouth) 2 times per day. potassium chloride (Klor-Con M20 oral tablet, extended release) 1 tab(s) Oral (given by mouth) every day. pravastatin (pravastatin 20 mg oral tablet) 1 tab(s) Oral (given by mouth) once a day (at bedtime). semaglutide (Rybelsus 14 mg oral tablet) 14 Milligram Oral (given by mouth) every day. tamsulosin (tamsulosin 0.4 mg oral capsule) 1 cap(s) Oral (given by mouth) every day. traMADol (Ultram 50 mg oral tablet) 1 tab(s) Oral (given by mouth) every 6 hours as needed as needed for pain. Refills: 0. traMADol (Ultram 50 mg oral tablet) 1 tab(s) Oral (given by mouth) every 6 hours as needed as needed for pain. Refills: 0. Medication List: New Medications [id number], [address] [place] [address] [phone], [phone] cephalexin (Keflex 500 mg oral capsule) 1 cap(s) Oral (given by mouth) every 8 hours.. Refills: 0. Medications That Were Updated - Follow Below Instructions [id number], [address] [place] [address] [phone], [phone] Updated: traMADol (Ultram 50 mg oral tablet) 1 tab(s) Oral (given by mouth) every 6 hours as neededas needed for pain. Refills: 0. Other Medications Updated: traMADol (Ultram 50 mg oral tablet) 1 tab(s) Oral (given by mouth) every 6 hours as neededas needed for pain. Refills: 0. Medications to Continue That Have Not Changed Other Medications calcium carbonate (calcium carbonate 1000 mg oral tablet, chewable) 1 tab(s) Oral (given by mouth) every day. dapagliflozin (Farxiga 10 mg oral tablet) 0.5 tab(s) Oral (given by mouth) every day. ezetimibe (ezetimibe 10 mg oral tablet) 0.5 tab(s) Oral (given by mouth) once a day (at bedtime). hydroCHLOROthiazide (hydroCHLOROthiazide 50 mg oral tablet) 1 tab(s) Oral (given by mouth) every day. metFORMIN (metFORMIN 500 mg oral tablet) 1 tab(s) Oral (given by mouth) 2 times per day. potassium chloride (Klor-Con M20 oral tablet, extended release) 1 tab(s) Oral (given by mouth) every day. pravastatin (pravastatin 20 mg oral tablet) 1 tab(s) Oral (given by mouth) once a day (at bedtime). semaglutide (Rybelsus 14 mg oral tablet) 14 Milligram Oral (given by mouth) every day. tamsulosin (tamsulosin 0.4 mg oral capsule) 1 cap(s) Oral (given by mouth) every day. New Medications [id number], [address] [place] [address] [phone], [phone] cephalexin (Keflex 500 mg oral capsule) 1 cap(s) Oral (given by mouth) every 8 hours.. Refills: 0. Medications That Were Updated - Follow Below Instructions [id number], [address] [place] [address] [phone], [phone] Updated: traMADol (Ultram 50 mg oral tablet) 1 tab(s) Oral (given by mouth) every 6 hours as neededas needed for pain. Refills: 0. Other Medications Updated: traMADol (Ultram 50 mg oral tablet) 1 tab(s) Oral (given by mouth) every 6 hours as neededas needed for pain. Refills: 0. Medications to Continue That Have Not Changed Other Medications calcium carbonate (calcium carbonate 1000 mg oral tablet, chewable) 1 tab(s) Oral (given by mouth) every day. dapagliflozin (Farxiga 10 mg oral tablet) 0.5 tab(s) Oral (given by mouth) every day. ezetimibe (ezetimibe 10 mg oral tablet) 0.5 tab(s) Oral (given by mouth) once a day (at bedtime). hydroCHLOROthiazide (hydroCHLOROthiazide 50 mg oral tablet) 1 tab(s) Oral (given by mouth) every day. metFORMIN (metFORMIN 500 mg oral tablet) 1 tab(s) Oral (given by mouth) 2 times per day. potassium chloride (Klor-Con M20 oral tablet, extended release) 1 tab(s) Oral (given by mouth) every day. pravastatin (pravastatin 20 mg oral tablet) 1 tab(s) Oral (given by mouth) once a day (at be (more content not included)...[id number] Note [id number]07-30-2025 [id number] 02-03-2025 [facility] SURGERY Clinical Discharge Summary PERSON INFORMATION Name DYAN HARRELL Age 64 Years 1960 Sex MALE Language Jordanian PCP MAREK SANTIAGO JR. Marital Status Single Phone Med Service Ambulatory Surgery Acct# Arrival 02/03/2025 09:00:14 Visit Reason Surgery-Bilat ESWL Acuity LOS 060 01:54 Address: [address] [place] [address] Comment: PROVIDER INFORMATION VITALS INFORMATION Vital Sign [...] ) DIET & ACTIVITY (more content not included)...[id number] Tyson reviews PAT information and testing results. Ok to proceed with procedure. Wants patient to hold Farxiga for 3-4 days prior to procedure. Will call patient to instruct them. [Electronically Signed on: 01/08/2025 07:37 EDT] Lady Looney RN [Verified on: 01/08/2025 07:37 EDT] Lady Looney RN Spoke with patient, instructed as above, verbalized understanding. [Electronically Signed on: 01/08/2025 10:45 EDT] Lady Looney [facility]NM[facility] [id number] Hospital Discharge instructions Patient Education 03/20/2022 08:07:07 Kidney Stones, Iopw-ic-Jvua Kidney Stones Kidney stones are rock-like masses [...] Follow these instructions at home: Medicines Take dsyj-lgs-tvjmcpc and prescription medicines only as told by [...] 12/11/2008 Document Revised: 11/11/2019 Document Reviewed: 11/11/2019 [employer] Patient Education 2020 [employer]. Follow Up Care 09/07/2021 09:12:58 With:MARGO SIMON, Serafin Mixon, URL Address: [address] [place], [place] [id number]- When:Within 6 Month(s) [facility] 09-07-2022 Evaluation note* Encounter Date Diagnosis Assessment Notes Treatment Notes Treatment Clinical Notes Mar, Laceration of right hand, foreign body presence unspecified, initial encounter (ICD-10 - S61.411A) Mar, Laceration of other specified muscles, fascia and tendons at wrist and hand level, right hand, initial encounter (ICD-10 - S66.821A) Activity as tolerated, no restrictions Mar, Unspecified open wound of right hand, initial encounter (ICD-10 - S61.401A) Mar, Other specified postprocedural states (ICD-10 - Z98.890) [facility] Other 08-03-2022 Evaluation note* Encounter Date Diagnosis [...] Other specified postprocedural states (ICD-10 - Z98.890) [facility] Other 07-06-2022 Evaluation note* Encounter Date Diagnosis [...] Other specified postprocedural states (ICD-10 - Z98.890) [facility] Other 06-10-2022 Evaluation note* Encounter Date Diagnosis [...] Other specified postprocedural states (ICD-10 - Z98.890) [facility] Other 06-01-2022 Evaluation note* Encounter Date Diagnosis [...] S61.401A) Dec, Pre-op exam (ICD-10 - Z01.818) [facility] Other Evaluation + Plan note Future Appointments Appointment Date:09/25/2022 08:45:00 AM Scheduled Provider:Serafin ARAGON MD Location:[facility] Appointment Type:URO Office Visit [facility] Evaluation + Plan note Future Appointments Appointment Date:04/11/2023 08:00:00 AM Scheduled Provider:Serafin ARAGON MD Location:[facility] Appointment Type:URO Office Visit General Surgery [place] Evaluation noteNo assessment information available [facility] Work Phone: History and physical note Author Orlando Walton [facility] Note Date/Time February 26, 2025 9: 34pm [facility] [address] [place] [address] Hospitalist H&P Signed Patient: Dyan Harrell MR#: [id number] : 1960 Acct:[id number] Age/Sex: 64 / M Adm Date: 5 Loc: Room: [address] [place] [address] Type: ADM IN Attending Dr: Orlando Walton MD Copies to: Marek Santiago Jr, DO Orlando Walton MD~ HPI DATE OF EXAMINATION: 02/26/25 CHIEF COMPLAINT: Fevers and chills HISTORY OF PRESENT ILLNESS: Dyan Harrell is a 64-year-old gentleman with diabetes,mellitus, former smoker of 30+ years, status post recent prostatectomy on 02/24/25 after shock wave lithotripsy, presented to [facility] emergency room on 02/26/2025 with fevers and chills, found to have evidence of suspected urosepsis prompting request for medical admission. On assessment at bedside in the emergency room patient resting in bed tired appearing but not in distress, states that he was discharged with antibiotics and felt he was improving and then developed sudden onset fevers, chills and severe fatigue this morning prompting presentation to the emergency room. Denies any chest pain, nausea, vomiting, diarrhea at this time. In the emergency room WBC count 17.8, hemoglobin 13.4, platelet count 486, sodium 137, potassium 3.9, BUN 15, creatinine 1.02, glucose 154, lactic acid 4.2. High-sensitivity troponin I 102, BNP 31. UA shows innumerable WBCs, 4+ leukocyte esterase. CT abdomen shows postsurgical changes of the prostate, fociof air within the prostate gland and urinary bladder wall thickening. Review of Systems Review of Systems All other systems reviewed & are negative unless noted below or in HPI [facility] Medical History (Updated 02/26/25 @ 21:28 by Orlando Walton MD) Kidney stones Problem List clean-up per request of Phys. EHR Cmte Surgical History Status post cervical spinal fusion Problem List clean-up per request of Phys. EHR Cmte History of lithotripsy Problem List clean-up per request of Phys. EHR Cmte History of tonsillectomy Problem List clean-up per request of Phys. EHR Cmte History of cholecystectomy Problem List clean-up per request of Phys. EHR Cmte History of renal stent Problem List clean-up per request of Phys. EHR Cmte Family History (Updated 03/15/22 @ 08:32 by Provider Conversion) Mother Lung cancer Mother Cancer Legacy FamHx Problem: Diagnosed with Cancer Social History Smoking Status: Former smoker Tobacco Type: cigarettes Substance Use Type: None Meds Medications and Allergies Allergies No Known Allergies Allergy (Verified 02/26/25 16:12) Home Medications hydrochlorothiazide 12.5 mg capsule 50 mg PO DAILY 12/08/21 [History Confirmed 02/26/25] metformin 500 mg tablet 500 mg PO BID 12/08/21 [History Confirmed 02/26/25] calcium citrate 1,000 mg tablet 1,000 mg PO DAILY 02/26/25 [History Confirmed 02/26/25] dapagliflozin propanediol 5 mg tablet (Farxiga) 5 mg PO DAILY 02/26/25 [History Confirmed 02/26/25] ezetimibe 10 mg tablet 5 mg PO DAILY 02/26/25 [History Confirmed 02/26/25] potassium chloride 20 mEq tablet,extended release(part/cryst) (Klor-Con M) 20 meq PO DAILY 02/26/25 [History Confirmed 02/26/25] pravastatin 20 mg tablet 20 mg PO DAILY 02/26/25 [History Confirmed 02/26/25] semaglutide 14 mg tablet (Rybelsus) 14 mg PO DAILY 02/26/25 [History Confirmed 02/26/25] tamsulosin 0.4 mg capsule (Flomax) 0.4 mg PO DAILY 02/26/25 [History Confirmed 02/26/25] Exam Physical Exam Vital Signs: Temp Pulse Resp BP Pulse Ox O2 Del Method 98.8 F 124 H 22 144/80 H 96 Room Air 02/26/25 16:04 02/26/25 19:28 02/26/25 19:28 02/26/25 19:28 02/26/25 19:28 02/26/25 19:28 Narrative: General: cooperative tired and weak appearing Orientation: alert, awake and oriented x3 Head: normal to inspection Neck: normal visual inspection Cardio: no JVD, fast regular rate, regular rhythm Chest palpation & inspection: normal inspection of the chest Resp Effort & Inspection: normal respiratory effort Abd: soft, non-tender, non-distended Extremities: Warm well perfused, no edema Results - Hospitalist H&P Lab Results Labs: Laboratory Last Values Corrected WBC 17.8 X10E3/uL (4.1-10.5) H 02/26/25 16:13 Uncorrected WBC Count 17.8 x10E3/uL (4.1-10.5) H 02/26/25 16:13 RBC 4.71 x10E6/uL (3.90-5.60) 02/26/25 16:13 Hgb 13.4 g/dL (13.0-17.0) 02/26/25 16:13 Hct 39.7 % (38.8-50.0) 02/26/25 16:13 MCV 84.3 fl (83.5-101) 02/26/25 16:13 MCH 28.5 pg (27.5-35.2) 02/26/25 16:13 MCHC 33.8 g/dL (32.5-35.6) 02/26/25 16:13 RDW 13.8 % (12.0-14.8) 02/26/25 16:13 Plt Count 486 x10E3/uL (150-450) H 02/26/25 16:13 MPV 7.2 fl (6.6-10.1) 02/26/25 16:13 Neut % (Auto) 91.6 % (.) 02/26/25 16:13 Lymph % (Auto) 5.3 % (.) 02/26/25 16:13 [place] % (Auto) 1.4 % (.) 02/26/25 16:13 Eos % (Auto) 1.0 % (.) 02/26/25 16:13 Baso % (Auto) 0.7 % (.) 02/26/25 16:13 Nucleat RBC Rel Count 0.0 /100 WBC (0-0.5) 02/26/25 16:13 Neut # (Auto) 16.3 x10E3/uL (1.8-7.7) H 02/26/25 16:13 Lymph # (Auto) 0.9 x10E3/uL (1.00-4.8) L 02/26/25 16:13 [place] # (Auto) 0.3 x10E3/uL (0.0-0.8) 02/26/25 16:13 Eos # (Auto) 0.2 x10E3/uL (0.0-0.45) 02/26/25 16:13 Baso # (Auto) 0.1 x10E3/uL (0.0-0.2) 02/26/25 16:13 Monocyte Dist Width 26.96 % (0.00-20.00) H 02/26/25 16:13 PT 12.5 Seconds (9.0-12.9) 02/26/25 16:13 INR 1.1 02/26/25 16:13 APTT 25.3 Seconds (25.1-36.5) 02/26/25 16:13 PHA Creatinine Clear 78.19 02/26/25 16:13 Sodium 137 mmol/L (136-145) 02/26/25 16:13 Potassium 3.9 mmol/L (3.5-5.1) 02/26/25 16:13 Chloride 101 mmol/L (98-107) 02/26/25 16:13 Carbon Dioxide 25.3 mmol/L (21.0-31.0) 02/26/25 16:13 Anion Gap 14.6 mEq/L (6.0-15.0) 02/26/25 16:13 BUN 15 mg/dL (7-25) 02/26/25 16:13 Creatinine 1.02 mg/dL (0.70-1.30) 02/26/25 16:13 Est GFR (CKD-EPI) > 60.0 mL/Min 02/26/25 16:13 Glucose 154 mg/dL (70-100) H 02/26/25 16:13 Lactic Acid 4.2 mmol/L (0.5-1.9) H* 02/26/25 16:13 Calcium 10.1 mg/dL (8.6-10.3) 02/26/25 16:13 Magnesium 1.6 mg/dL (1.9-2.7) L 02/26/25 16:13 Total Bilirubin 0.8 mg/dl (0.3-1.0) 02/26/25 16:13 AST 15 U/L (13-39) 02/26/25 16:13 ALT 20 U/L (7-52) 02/26/25 16:13 Alkaline Phosphatase 70 U/L (34-104) 02/26/25 16:13 Total Creatine Kinase 17 U/L (30-223) L 02/26/25 16:13 Troponin I High Sens 102 ng/L (0-20) H* 02/26/25 16:13 B-Natriuretic Peptide 31.0 pg/mL (5-100) 02/26/25 16:13 Total Protein 7.7 gm/dL (6.4-8.9) 02/26/25 16:13 Albumin 3.8 gm/dL (3.5-5.7) 02/26/25 16:13 Globulin 3.9 gm/dL 02/26/25 16:13 Albumin/Globulin Ratio 1.0 02/26/25 16:13 Urine Color Light-orange (Yellow) A 02/26/25 16:25 Urine Appearance Turbid (Clear) A 02/26/25 16:25 Urine pH 6.0 (5.0-9.0) 02/26/25 16:25 Ur Specific [place] 1.014 (1.001-1.030) 02/26/25 16:25 Urine Protein 100 mg/dL (Negative) H 02/26/25 16:25 Urine Glucose (UA) >=1000 mg/dL (Normal) H 02/26/25 16:25 Urine Ketones Negative (Negative) 02/26/25 16:25 Urine Occult Blood 3+ (Negative) H 02/26/25 16:25 Urine Nitrite Negative (Negative) 02/26/25 16:25 Urine Bilirubin Negative (Negative) 02/26/25 16:25 Urine Urobilinogen Normal mg/dL (Normal) 02/26/25 16:25 Ur Leukocyte Esterase 4+ (Negative) H 02/26/25 16:25 Urine RBC Innumerable /HPF (0-4) H 02/26/25 16:25 Urine WBC Innumerable /HPF (0-4) H 02/26/25 16:25 Urine WBC Clumps Many /LPF (None Seen) H 02/26/25 16:25 Ur Squamous Epith Cells N/A 02/26/25 16:25 Urine Bacteria 4+ /HPF (None Seen) H 02/26/25 16:25 Hyaline Casts None /LPF (0-8) 02/26/25 16:25 Urine Mucus 2+ /LPF A 02/26/25 16:25 COVID-19 Clin Com Not detected (Not Detecte) 02/26/25 16:25 Microbiology Results Micro: Microbiology - Results from entire visit 02/26/25 16:25 Nasopharyngeal Respiratory Panel (PCR) - Final Assessment & Plan Assessment/Plan (1) Elevated troponin: (2) UTI (urinary tract infection): (3) Sepsis: (4) Diabetes mellitus: Plan Dyan Harrell is a 64-year-old gentleman h/o diabetes mellitus, HTN, former smoker of 30+ years, status post recent prostatectomy on 02/24/25 after shock wave lithotripsy, presented to [facility] emergency room on 02/26/2025 with fevers and chills, found to have evidence of suspected urosepsis prompting request for medical admission. 1. Sepsis 2/2 UTI in the setting of recent urgent prostatectomy - In the emergency room WBC count 17.8, hemoglobin 13.4, platelet count 486, sodium 137, potassium 3.9, BUN 15, creatinine 1.02, glucose 154, lactic acid 4.2. High-sensitivity troponin I 102, BNP 31. UA shows innumerable WBCs, 4+ leukocyte esterase. CT abdomen shows postsurgical changes of the prostate, fociof air within the prostate gland and urinary bladder wall thickening. - Did have UTI prior to procedure, urine culture from 02/13/2025 and 02/15/2025 showed E. coli ESBL - Start sepsis protocol with 2 L crystalloids, started antibiotics with meropenem 1 g every 8 hours - IV fluids with LR 100 cc/h - Troponin elevation likely secondary to demand ischemia, continue to trend to check echo for LV function - Urine and blood cultures pending 2. h/o diabetes mellitus, HTN, former smoker of 30+ years - Hold SGLT2 inhibitor with consideration for permanent discontinuation - Hold HCTZ and tamsulosin Diet: carb controlled Daily Labs: CBC, BMP Lines/Drains: PIV DVT ppx: Lovenox Code status: Full Status: inpatient IP vs OBS Justification Based on differential dx, clinical care plan, and risk of adverse events, if untreated, in my clinical judgement this patient requires an acute care setting as: INPATIENT because of an expectation of an over 2 midnight stay. Estimated length of stay (# of days): 3 Documented By: Orlando Walton MD 02/26/251939 Signed By: <Electronically signed by Orlando Walton MD> 02/26/25 9002 [facility] Work Phone: History general Narrative - Reported* Type Description Date Medical History kidney stones Medical History metformin Surgical History gallbladder Surgical History tonsillectomy Surgical History lithotripsy Surgical History cervical fusion Surgical History kidney stents\ [facility] Other Hospital course Narrative No data available for this section [facility] Hospital Discharge instructions No data available for this section General Surgery [place] Progress note No data available for this section [facility] Progress note Author Stephon Carrington [facility] Note Date/Time March 01, 2025 1: 27pm [facility] [address] [place] [address] Cardiology Progress Note Signed Patient: Dyan Harrell MR#: [id number] : 1960 Acct:[id number] Age/Sex: 64 / M Adm Date: 5 Loc: 4 Room: [id number] Type: ADM IN Attending Dr: Dyan Sharp DO Copies to: ~ Date of Service: 03/01/2025 Subjective Interval history: No chest pain. Mild shortness of breath. Described mild edema Exam Physical Exam Vital Signs: Temp Pulse Resp BP Pulse Ox O2 Del Method 97.8 F 83 17 103/64 97 Room Air 03/01/25 08:00 03/01/25 12:00 03/01/25 12:00 03/01/25 12:00 03/01/25 12:00 03/01/25 12:00 Const General: cooperative Neck Neck: supple Lymphatic: no lymphadenopathy noted Resp Effort & Inspection: normal respiratory effort Auscultation: clear to auscultation bilaterally Cardio Palpation: normal PMI Rate: regular rate Rhythm: regular rhythm Heart Sounds: S1 normal and S2 normal Skin General: dry skin Extrem General: full ROM and no clubbing, cyanosis or edema Objective Labs 03/01/25 03:36 03/01/25 03:36 Labs: Laboratory Results - last 24 hr 03/01/25 03:36 Corrected WBC 9.4 Uncorrected WBC Count 9.4 RBC 3.89 L Hgb 11.3 L Hct 32.4 L MCV 83.2 L MCH 29.0 MCHC 34.8 RDW 13.9 Plt Count 450 MPV 7.2 Neut % (Auto) 64.5 Lymph % (Auto) 22.3 [place] % (Auto) 9.0 Eos % (Auto) 3.4 Baso % (Auto) 0.8 Nucleat RBC Rel Count 0.1 Neut # (Auto) 6.0 Lymph # (Auto) 2.1 [place] # (Auto) 0.8 Eos # (Auto) 0.3 Baso # (Auto) 0.1 PHA Creatinine Clear 99.69 Sodium 137 Potassium 3.9 Chloride 107 Carbon Dioxide 25.0 Anion Gap 8.9 BUN 10 Creatinine 0.59 L Est GFR (CKD-EPI) > 60.0 Glucose 152 H Calcium 8.9 A&P - Cardiology (1) Elevated troponin: Assessment/Problem Details: Elevated troponin appears to be a type II event related to urosepsis. Patient denies chest pain Code(s): R79.89 - Other specified abnormal findings of blood chemistry (2) Sepsis: Code(s): A41.9 - Sepsis, unspecified organism (3) UTI (urinary tract infection): Code(s): N39.0 - Urinary tract infection, site not specified (4) Diabetes mellitus: Code(s): E11.9 - Type 2 diabetes mellitus without complications Plan 1. Continue aspirin and add low-dose beta-jennifer 2. EKG unchanged 3. Outpatient stress test and few weeks Documented By: Stephon Carrington MD 03/01/25 1455 Signed By: <Electronically signed by MD Stephon Carrington> 03/01/25 [id number] [facility] Work Phone: Reason for referral (narrative)No reason for referral information [facility] Work Phone: Summary Purpose Family History No Family History Records Found Relationship Condition Age at Onset Recorded Date/T yahir mother Malignant neoplasm of lung Unknown mother Malignant neoplasm Unknown Advance Directives No Advanced Directives Records Found Advance Directive Response Recorded Date/ Time Advance Directives No December 07 10:38am Chief Complaint and Reason for Visit Chief Complaint Admit Date Unknown February 13, 2025 4:2 3am Unknown February 15, 2025 1: 21am ill February 26, 2025 7: 28pm Reason for Visit Admit Date Diabetes mellitus February 26, 2025 7: 28pm Elevated troponin February 26, 2025 7: 28pm Sepsis February 26, 2025 7: 28pm UTI (urinary tract infection) February 7:28pm Additional Source Comments REASON FOR VISIT (unrecogniz ed section and content) Recheck Right Ring FingerRig ht Ring Finger LacerationRecheck Right Ring FingerRecheck Right Ring FingerRecheck Right Ring Finger Care Team (unrecognized sect ion and content) Team Status: Active Member Role Status Dates Marek Santiago JR DO Primary Care Provider Active Team Status: Inactive Member Role Status Dates Marek Santiago JR DO Primary Care Provider Active Start: February 13, 2025 End: February 13, 2025 NON STAFF Attending Provider Active Start: [facility] 2024 End: February 13, 2025 Team Status: Inactive Member Role Status Dates NON STAFF Attending Provider Active Start: [facility] 2024 End: February 15, 2025 Team Status: Active Member Role Status Dates Melody Siddiqi APRN Emergency Provider Active Start: February 26, 2025 Mraek Santiago JR DO Primary Care Provider Active Start: February 26, 2025 Orlando Walton MD Admit Provider Active Start: 2024 Orlando Walton MD Attending Provider Active Star t: February 26, 2025 Team Status: Inactive Member Role Status Dates Melody Siddiqi APRN Emergency Provider Active Start: February 26, 2025 End: March 01, 2025 Marek Santiago JR DO Primary Care Provider Active Start: February 26, 2025 End: March 01, 2025 Orlando Walton MD Admit Provider Active Start: A 2024 End: March 01, 2025 Negrita Smyth RN Other Provider Active Star t: February 26, 2025 End: March 01, 2025 Tiny Siu DO Other Provider Active Start : February 26, 2025 End: March 01, 2025 Marla Ware MD Other Provider Active Start: February 26, 2025 End: March 01, 2025 Stephon Carrington MD Other Provider Active St art: February 26, 2025 End: March 01, 2025 Agatha Styles APRN Other Provider Active Start : February 26, 2025 End: March 01, 2025 Nemo Hensley MD Other Provider Active Start: A 2024 End: March 01, 2025 Aliyah Heredia MD Other Provider Active Start: A 2024 End: March 01, 2025 Jessica Garcia , CAN LABELER- Other Provider Active Sta rt: February 26, 2025 End: March 01, 2025 Dyan Sharp DO Attending Provider Active St art: February 26, 2025 End: March 01, 2025 (unrecognized sect ion and content) No Status Records FoundNo Status Records FoundNo Status Records FoundNo Status Records Found INFORMATION SOURCE (unrecogn ized section and content) DATE CREATED AUTHOR 09/17/2022 [facility] DATE CREATED AUTHOR AUTHOR'S ORGANIZ ATION 03/21/2023 [facility] DATE CREATED AUTHOR AUTHOR'S ORGANIZ ATION 03/02/2025 [facility] DATE CREATED AUTHOR AUTHOR'S ORGANIZ ATION 03/06/2025 [facility] Goals (unrecognized section and content) Goals may [...] BE BASED ON THE PRIMARY CLINICAL RECORDS. [facility]. provides no warranty or guarantee of the accuracy or completeness of information in this document.
--- NOTE | 2025-03-10 11:07 | XR_ITS ---
The [address] [address] Patient Name: DYAN HARRELL MRN: [id number] date: 1960 Sex: M Assigned Patient Location: [facility] Current Patient Location: [facility] Accession/Order Number: [id number] Exam Date: 03/10/2025 11:02 Report Date: 03/10/2025 11:25 At the request of: JUDITH LOVE MD Procedure: XR abdomen 1V SINGLE VIEW ABDOMEN CLINICAL DATA: History of bilateral renal stones. COMPARISON: CT 02/15/2025 Supine views of the abdomen and pelvis were obtained. There is air and stool within the colon. No dilated small bowel loops are seen. Both kidneys are partially obscured. There is redemonstration of pancreatic calcifications however the renal stones seen on the comparison CT are not well visualized. There are pelvic phleboliths. No soft tissue masses are seen. There are mild degenerative changes at the spine and SI joints. There is prior cholecystectomy. XR/XR abdomen 1V IMPRESSION: SLIGHT LIMITED STUDY DUE TO BOWEL GAS AND STOOL. POORLY DEMONSTRATED KNOWN NEPHROLITHIASIS. CHANGES OF CHRONIC PANCREATITIS. Impression dictated by: Ines Guzman M.D. 03/10/2025 11:25 AM Dictation Location: [place] [address] Electronically authenticated by: [id number] Y Date: 03/10/2025 11:25
== END 2025-03-10 10:57 | disposition home or self-care (01) ==
LOC: RAD 10:56
PROVIDERS: PCP Internal Medicine; Visit Provider Urology
DX: N20.2 Calculus of kidney with calculus of ureter (principal); K86.1 Other chronic pancreatitis
CPT/HCPCS: 74018

== ENCOUNTER 2025-04-13 10:30 | Outpatient (OUT) | payer MEDICARE, OTHER, SELFPAY ==
--- OUTSIDE RECORDS SUMMARY | 2024-03-04 05:10 | XMS_ITS ---
Author Organization [facility] [place] Address [address] [place] [address] Care Team Providers Care Clinical Practice Consultant Name Role Phone Marek Nogueira DO Primary Care Provider Unavail able Derik Marrero [facility] [phone] REASON FOR VISIT w/ litholink & kub Encounters Encounter Location Date Provider Diagnosis Urology [facility] [address] [address] 03/04/2024 Derik Marrero Plan Of Treatment No Information Progress Notes * Mark PARK RDOB: [birth year] (65 yo M)Acc No.[id number]:03/04/2024 UNLOCKED PROGRESS NOTE Patient: Mark PETERSON Provider: Heri Marrero MD :1960 A ge:63 Y S ex:Male Date:03/04/2024 Address:[address] [place] [address] [address], [place], [id number] Pcp:Marek Nogueira DO Subjective: * Chief Complaints: * 1 . W/ litholink & kub. * Medical History: Objective: * Vitals: Assessment: Plan: * Treatment: * * Electronic signature of Jean-Paul Marrero MD, [id number] on 04/13/2025 at 10:35 AM EDT Sign off status: Pending Visit Status: R /S By O/P (Rescheduled by Office/Provider) * Provider: Heri Marrero MD Date: 0 03/04/2024 Generated for Ada monique/Martha/Jalenitting on: 1 10:35 AM EDT
--- OUTSIDE RECORDS SUMMARY | 2025-04-03 20:00 | XMS_ITS ---
Author Organization The [facility] in [place] Address [address] [place] [address] Care Team Providers Care Road Freight Firer Name Role Phone Marek Nogueira DO Primary Care Provider Unavail able Provider, Radiology Unavailable [phone] Encounters Encounter Location Date Provider Diagnosis Radiology Main [place] [address] [place] [address] 04/04/2025 Radiology Provider Plan Of Treatment No Information Progress Notes * Mark PARK RDOB: [birth year] (65 yo M)Acc No.[id number]:04/04/2025 UNLOCKED PROGRESS NOTE Progress Note Patient: Mark PETERSON Provider: Audi sheareriology Provider :1960 A ge:65 Y S ex:Male Date:04/04/2025 External Visit ID:[id number] Address:[address] [place] [address] [address], [id number] Pcp:Marek Nogueira DO Subjective: * Chief Complaints: * * Active Problem List N20.2 Calculus of kidney a nd ureter Modified On:06/05/2023W/U Status:confirmed N52.9 Male erectile dysfun ction, unspecified Modified On:04/04/2024W/U Status:confirmed * Medical History: Objective: * Vitals: Assessment: Plan: * Treatment: * * Electronic signature of Radi ology Provider on 04/13/2025 at 10:35 AM EDT Sign off status: Pending Visit Status: P EN (Pending) * Provider: Audi watts Provider Date: 0 04/04/2025 Generated for Ada monique/Martha/Sarah on: 10:35 AM EDT
--- OUTSIDE RECORDS SUMMARY | 2025-04-13 10:35 | XMS_ITS | Patient Health Record ---
Author Organization The [facility] in [place] Address [address] [place] [address] Care Team Providers Care Customer Support Associate Name Role Phone Marek Santiago DO Primary Care Provider Unavail able Provider, Radiology Unavailable [phone] Judith Love Unavailable [phone] Allergies No Known Allergies Results Component Value Reference Range Notes XR abdomen 1V (Not yet revie wed by provider) Interpretation: Performing Lab: Notes/Report: Source Facility: [place] [address] XRay Report Signed Patient: MARK PARK MR#: [id number] : 1960 Acct:[id number] Age/Sex: 65 / M ADM Date: 03/10/25 Loc: RAD Attending Dr: Judith Love M.D. Ordering Physician: Judith Love M.D. Date of Service: 03/10/25 Procedure(s): XR abdomen 1V Accession Number(s): [id number] cc: Judith Love M.D.; MAREK SANTIAGO D.O. [place] [id number] Patient Name: MARK PARK MRN: [id number] date: 1960 Sex: M Assigned Patient Location: RAD Current Patient Location: RAD Accession/Order Number: [id number] Exam Date: 03/10/2025 11:02 Report Date: 03/10/2025 11:25 At the request of: JUDITH LOVE MD Procedure: XR abdomen 1V SINGLE VIEW ABDOMEN CLINICAL DATA: History of bilateral renal stones. COMPARISON: CT 02/15/2025 Supine views of the abdomen and pelvis were obtained. There is air and stool within the colon. No dilated small bowel loops are seen. Both kidneys are partially obscured. There is redemonstration of pancreatic calcifications however the renal stones seen on the comparison CT are not well visualized. There are pelvic phleboliths. No soft tissue masses are seen. There are mild degenerative changes at the spine and SI joints. There is prior cholecystectomy. XR/XR abdomen 1V IMPRESSION: SLIGHT LIMITED STUDY DUE TO BOWEL GAS AND STOOL. POORLY DEMONSTRATED KNOWN NEPHROLITHIASIS. CHANGES OF CHRONIC PANCREATITIS. Impression dictated by: Ines Guzman M.D. 03/10/2025 11:25 AM Dictation Location: [place] [address] Electronically authenticated by: [id number] Y Date: 03/10/2025 11:25 Dictated By: Ines Guzman M.D. Signed By: 03/10/25 1127 DD/ 1125 TD/TT: Lead Dental Assistant: DARON 24 HR URINE (Not yet reviewed by provider) Interpretation: Performing Lab: Notes/Report: Reason For Referral No Information Medications Medication SIG (Take, Route, Frequency, Duration) Notes Start Date End Date Status Tamsulosin HCl 0.4 MG TAKE 1 CAPSULE BY MOUTH TWICE DAILY Oral; Duration: 90 Days Active hydroCHLOROthiazide 12.5 MG 1 tablet in the morning Orally Once a day; Duration: 30 day(s) Not-Taking Rybelsus Active Tadalafil (PAH) 20 MG 1 tablet Orally Once a day; Duration: 30 days 04/04/2024 Active hydroCHLOROthiazide 50 MG 1 tablet in th e morning Orally Once a day; Duration: 90 days 06/05/2023 Active Potassium Chloride ER 20 MEQ 1 tablet wi th food Orally Once a day; Duration: 90 days 06/05/2023 Active metFORMIN HCl Active [...] Problem Status W/U Status Risk Notes Problem Erectile dysfunction (disorder) (313389128) Male erectile dysfunction, unspecified (N52.9) Active confirmed Problem Calculus of kidney and ureter (900624254) Calculus of kidney and ureter (N20.2) Active confirmed Vital Signs Height 72 in 12/02/2024 Weight 200.2 lbs 12/02/2024 BMI 27.15 kg/m2 12/02/2024 Procedures Procedure Date Ordered Date Performed Result Body Sit e ESWL 12/02/2024 12/03/2024 N/A Encounters Encounter Location Date Provider Diagnosis Urology [facility] [address] [place] [address] 12/02/2024 [facility] Calculus of kidney a nd ureter N20.2 ; Hypercalciuria R82.994 and Male erectile dysfunction, unspecified N52.9 [facility] [address] [place] [address] 02/03/2025 [facility] Radiology Main [place] [address] [place] [address] 04/04/2025 Radiology Provider Assessments Encounter Date Diagnosis (ICD Code) Assessment [...] HR URINE 12/02/2024 XR abdomen 1V 02/27/2024 XR abdomen 1V 03/10/2025 Future Test Test Name Order Date LITHOLINK, 24 HR URINE 06/05/2023 XR Abdomen AP (1 view) (KUB) * 3 XR Abdomen AP (1 view) (KUB) * 5 Insurance Providers Payer Name Payer Address Payer Phone Subscriber Number Group Number Insured Name Patient Relationship to Insured Coverage Start Date Coverage End Date [place]IC[place] [address] [place] [address] [id number] Mark Park Self - patient is the insured 3 Medical (General) History Medical History History ICD Code Diabetes kidney stones Calculus of kidney and ureter N20.2 Hypercalciuria R82.994 Surgical History Surgery Date(Month/Year) Bilateral laser lithotripsy Right ESWL neck fusion cholecystectomy appendectomy
--- OUTSIDE RECORDS SUMMARY | 2025-04-13 10:35 | XMS_ITS | Encounter Summary ---
Author Organization [facility] Address [address] [place] [address] Phone Care Team Providers Care Deputy Clerk Name Role Phone Marek Nogueira DO Primary Care Provider [phone] Encounter Details Date Type Department Care Team (Late st Contact Info) Description 03/01/2025 Scanned Document [facility] [address] [place] [phone] Scanning, Generic Provider Social History Tobacco Use Types Packs/Day Years Used Date Smoking Tobacco: Never Assessed Sex and Gender Information Value Date Recorded Sex Assigned at Not on file Legal Sex Male 6:10 PM EST Gender Identity Not on file Sexual Orientation Not on file documented as of this encounter Plan of Treatment Not on file documented as of this encounter Visit Diagnoses Not on filedocumented in this encounter Care Teams Deputy Clerk Relationship Specialty Start Date End Date Marek Nogueira DO [address] [place] [address] PCP - General Internal Medicine 03/16/25 documented as of this encounter
--- OUTSIDE RECORDS SUMMARY | 2025-04-13 10:35 | XMS_ITS | Encounter Summary ---
Author Organization [facility] Address [address] [place] [address] Phone Care Team Providers Care Supervisor Compressed Yeast Name Role Phone Marek Nogueira DO Primary Care Provider [phone] Encounter Details Date Type Department Care Team (Late st Contact Info) Description 02/26/2025 Scanned Document [facility] [address] [place] [address] Scanning, Generic Provider Social History Tobacco Use Types Packs/Day Years Used Date Smoking Tobacco: Never Assessed Sex and Gender Information Value Date Recorded Sex Assigned at Not on file Legal Sex Male 6:10 PM EST Gender Identity Not on file Sexual Orientation Not on file documented as of this encounter Plan of Treatment Not on file documented as of this encounter Procedures Procedure Name Priority Date/Time Associated Diagnosis Comments OUTSIDE IMAGING SCAN 02/26/2025 ECHOCARDIOGRAM 02/26/2025 documented in this encounter Results * Echocardiogram (02/26/2025) Narrative 02/26/2025 Ordered by an unspecified provider. us Generic Provider Scanning CV ECHO PROCEDURES Fin al Result * OUTSIDE IMAGING SCAN (02/26/2025) Anatomical Region Laterality Modality Other Narrative 02/26/2025 Ordered by an unspecified provider. us Generic Provider Scanning OUTSIDE SCAN Final Result documented in this encounter Visit Diagnoses Not on filedocumented in this encounter Care Teams Supervisor Compressed Yeast Relationship Specialty Start Date End Date Marek Nogueira DO [address] [place] [address] [place] [address] PCP - General Internal Medicine 03/16/25 documented as of this encounter
--- OUTSIDE RECORDS SUMMARY | 2025-04-13 10:35 | XMS_ITS | Clinical Summary ---
Author Organization [facility] Address [address] [place] [address] Phone Care Team Providers Care Automation Technician Name Role Phone Marek Nogueira DO Primary Care Provider [phone] Allergies No known active allergies Encounters Date Type Department Care Team Description 03/17/2025 Results Follow-Up [address] [phone] Sue Burruoghs RN Nuclear Stress Test 03/16/2025 8:17 AM EDT - 03/16/2025 11:59 PM EDT Hospital Encounter [facility] [address] [phone] Discharge Disposition: Home 03/16/2025 8:17 AM EDT - 03/16/2025 11:59 PM EDT Hospital Encounter [facility] [address] [phone] Discharge Disposition: Home 03/16/2025 8:17 AM EDT - 03/16/2025 11:59 PM EDT Hospital Encounter [facility] [address] [phone] Discharge Disposition: Home 03/16/2025 8:17 AM EDT - 03/16/2025 11:59 PM EDT Hospital Encounter [facility] [address] [phone] Discharge Disposition: Home 03/16/2025 8:17 AM EDT - 03/16/2025 11:59 PM EDT Hospital Encounter [facility] [address] [place] [address] Elevated troponin; Acute or subacute form of ischemic heart disease Discharge Disposition: Home 03/16/2025 Travel 03/02/2025 Telephone [facility] 703 [facility] [address] [place] [address] Negrita Smyth RN 03/01/[address] [facility] [address] [place] [address] Scanning, Generic Provider 02/27/[address] [facility] [address] [place] [address] Scanning, Generic Provider 02/26/[address] [facility] [address] [place] [address] Scanning, Generic Provider 02/09/[address] [facility] [address] [place] [address] Scanning, Generic Provider from Last 3 Months Social History Tobacco Use Types Packs/Day Years Used Date Smoking Tobacco: Never Assessed Sex and Gender Information Value Date Recorded Sex Assigned at Not on file Legal Sex Male 6:10 PM EST Gender Identity Not on file Sexual Orientation Not on file Last Filed Vital Signs Vital Sign Reading Time Taken Comments Blood Pressure 120/78 03/16/2025 9:38 AM EDT Pulse 91 03/16/2025 9:38 AM EDT Temperature - - Respiratory Rate - - Oxygen Saturation - - Inhaled Oxygen Concentration - - Weight - - Height - - Body Mass Index - - Plan of Treatment Health Maintenance Due Date Last Done Comments CT Colonography 1960 Colonoscopy 1960 Colorectal Cancer Screening 1960 FIT-DNA (Cologuard) 1960 FIT 1960 Lipid Panel 1960 Medicare Annual Wellness Visit (AWV) 1960 Sigmoidoscopy 1960 MMR Vaccines (1 of 1 - Standard series) 1959 Diabetes Screening 1976 Hepatitis C Screening 1976 Pneumococcal Vaccine (1 of 2 - PCV) 1977 PSA Prostate Cancer Screening 2008 Zoster Vaccines (2 of 3) 12/22/2014 10/27/2014 COVID-19 Vaccine (4 - season) 2025 06/11/2021, 10/15/2020, 09/17/2020 Influenza Vaccine (#1) 2025 , 04/11/2018, 04/12/2017, Additional history exists DTaP/Tdap/Td Vaccines (2 - Tdap) 12/06/2031 12/05/2021 RSV High Risk: (Elderly (60+) or Population) Completed 06/19/2023 HIB Vaccines Aged Out No longer eligi ble based on patient's age to complete this topic HPV Vaccines Aged Out No longer eligi ble based on patient's age to complete this topic Hepatitis A Vaccines Aged Out No long er eligible based on patient's age to complete this topic Hepatitis B Vaccines Aged Out No long er eligible based on patient's age to complete this topic IPV Vaccines Aged Out No longer eligi ble based on patient's age to complete this topic Meningococcal Vaccine Aged Out No edilson tammy eligible based on patient's age to complete this topic Rotavirus Vaccines Aged Out No longer eligible based on patient's age to complete this topic Procedures Procedure Name Priority Date/Time Associated Diagnosis Comments STRESS TEST, REGADENOSON W MYOCARDIAL PERFUSION SPECT (MULTI STUDY) Routine 03/16/2025 10:50 AM EDT Elevated troponin Acute or subacute form of ischemic heart disease ECHOCARDIOGRAM 02/26/2025 OUTSIDE IMAGING SCAN 02/26/2025 from Last 3 Months Results * STRESS TEST, REGADENOSON W MYOCARDIAL PERFUSION SPECT (MULTI STUDY) (03/16/2025 10:50 AM EDT) Anatomical Region Laterality Modality Nuclear Medicine 03/17/2025 8:20 AM EDT 03/17/2025 8:20 AM EDT Impressions 03/17/2025 8:19 AM EDT Normal Lexiscan Myoview cardiac perfusion stress test. No evidence of ischemia or myocardial infarction by perfusion imaging. Normal left ventricular systolic function, ejection fraction 62%. No previous studies are available for comparison. Signed by: Marla Ware 03/17/2025 8:19 AM Dictation workstation: [id number] Narrative 03/17/2025 8:19 AM EDT Interpreted By: Marla Ware and Giannuzzi Michael STUDY: MYOCARDIAL PERFUSION STRESS TEST WITH LEXISCAN Performing facility: [facility], [address] [place] [address], [address], [address] Provider: Mohan Leon MD PCP: Dr. Rosy Nogueira Supervising provider: Mohan Leon MD INDICATION: Signs/Symptoms: ,R79.89 Other specified abnormal findings of blood chemistry,I24.89 Other forms of acute ischemic heart disease HISTORY: Gender: M; Age: 65 y/o ; Height: cm; Weight: kg. High Cholesterol; Diabetes; Elevated cardiac enzymes Quit smoking unknown years ago. COMPARISON: No comparison. ACCESSION NUMBER(S): [id number] ORDERING CLINICIAN: MOHAN LEON TECHNIQUE: ONE DAY protocol. Stress injection: Date:03-16-25, 32.0 mCi of Myoview IV 20 seconds after rapid injection of Lexiscan. Rest injection: Date: 03-16-25, 10.4 mCi of Myoview IV at rest. The patient had a rapid injection of 0.4 mg of Lexiscan IV over 10 seconds. Imaging was performed by tomographic technique. Reason for Lexiscan: dizziness/unsteady/fall risk STRESS TEST DATA: Resting heart rate was 91 BPM. Resting blood pressure was 120/78 mmHg. Peak blood pressure was 112/66 mmHg. Peak heart rate was 120 BPM. TEST TERMINATED DUE TO: Protocol completed FINDINGS: STRESS TEST RESULTS: Resting electrocardiogram revealed normal sinus rhythm. There were no significant ischemic ECG changes or dysrhythmias. The patient did not have chest pains/symptoms during procedure. There was a normal recovery phase. IMAGING RESULTS: Image quality was good. Rest and stress tomographic images were reviewed and revealed normal perfusion without evidence of ischemia, myocardial infarction, or left ventricular dilatation with stress. Overall left ventricular systolic function appeared to be normal without regional wall motion abnormalities. Ejection fraction was 62%. TID is 1.18 and is normal. There was no evidence of attenuation artifact. Procedure Note Marla Ware MD - 03/17/2025 Interpreted By: Marla Ware and Giannuzzi Michael STUDY: MYOCARDIAL PERFUSION STRESS TEST WITH LEXISCAN Performing facility: [facility], [address] [place] [address], [address], [place] [address] [facility] Provider: Mohan Leon MD PCP: Dr. Rosy Nogueira Supervising provider: Mohan Leon MD INDICATION: Signs/Symptoms: ,R79.89 Other specified abnormal findings of blood chemistry,I24.89 Other forms of acute ischemic heart disease HISTORY: Gender: M; Age: 65 y/o ; Height: cm; Weight: kg. High Cholesterol; Diabetes; Elevated cardiac enzymes Quit smoking unknown years ago. COMPARISON: No comparison. ACCESSION NUMBER(S): [id number] ORDERING CLINICIAN: MOHAN LEON TECHNIQUE: ONE DAY protocol. Stress injection: Date:03-16-25, 32.0 mCi of Myoview IV 20 seconds after rapid injection of Lexiscan. Rest injection: Date: 03-16-25, 10.4 mCi of Myoview IV at rest. The patient had a rapid injection of 0.4 mg of Lexiscan IV over 10 seconds. Imaging was performed by tomographic technique. Reason for Lexiscan: dizziness/unsteady/fall risk STRESS TEST DATA: Resting heart rate was 91 BPM. Resting blood pressure was 120/78 mmHg. Peak blood pressure was 112/66 mmHg. Peak heart rate was 120 BPM. TEST TERMINATED DUE TO: Protocol completed FINDINGS: STRESS TEST RESULTS: Resting electrocardiogram revealed normal sinus rhythm. There were no significant ischemic ECG changes or dysrhythmias. The patient did not have chest pains/symptoms during procedure. There was a normal recovery phase. IMAGING RESULTS: Image quality was good. Rest and stress tomographic images were reviewed and revealed normal perfusion without evidence of ischemia, myocardial infarction, or left ventricular dilatation with stress. Overall left ventricular systolic function appeared to be normal without regional wall motion abnormalities. Ejection fraction was 62%. TID is 1.18 and is normal. There was no evidence of attenuation artifact. IMPRESSION: Normal Lexiscan Myoview cardiac perfusion stress test. No evidence of ischemia or myocardial infarction by perfusion imaging. Normal left ventricular systolic function, ejection fraction 62%. No previous studies are available for comparison. Signed by: Marla Ware 03/17/2025 8:19 AM Dictation workstation: [id number] us Mohan Leon MD CV STRESS PROCEDURES Final Result * OUTSIDE IMAGING SCAN (02/26/2025) Anatomical Region Laterality Modality Other Narrative 02/26/2025 Ordered by an unspecified provider. us Generic Provider Scanning OUTSIDE SCAN Final Result * Echocardiogram (02/26/2025) Narrative 02/26/2025 Ordered by an unspecified provider. us Generic Provider Scanning CV ECHO PROCEDURES Fin al Result from Last 3 Months Insurance MEDICARE PART A AND B [facility] MEDICARE SUPPLEMENT MEDICARE PART A AND B [facility] MEDICARE SUPPLEMENT Care Teams Automation Technician Relationship Specialty Start Date End Date Marek Nogueira DO [facility] [place] [address] PCP - General Internal Medicine 03/16/25
--- OUTSIDE RECORDS SUMMARY | 2025-04-13 10:35 | XMS_ITS | Clinical Summary ---
Author Organization [employer] tem Address [id number] [address] [place] [address] Care Team Providers Care Public Relations Director Name Role Phone Mirlande Calderon DO, Charles [...] Not on file Insurance MEDICARE Care Teams Public Relations Director Relationship Specialty Start Date End Date Marek Nogueira Jr., DO [address] [place] [address] PCP - General Internal Medicine 09/27/17
--- OUTSIDE RECORDS SUMMARY | 2025-04-13 10:35 | XMS_ITS | Encounter Summary ---
Author Organization [facility] Address [address] [place] [address] Phone Care Team Providers Care Automatic Beading Lathe Operator Name Role Phone Marek Nogueira DO Primary Care Provider Encounter Details Date Type Department Care Team (Late st Contact Info) Description 02/09/2025 Scanned Document [facility] [address] [place] [phone] Scanning, Generic Provider Social History Tobacco Use [...] on filedocumented in this encounter Care Teams Automatic Beading Lathe Operator Relationship Specialty Start Date End Date Marek Nogueira DO [address] [place] [address] PCP - General Internal Medicine 03/16/25 documented as of this encounter
--- OUTSIDE RECORDS SUMMARY | 2025-04-13 10:35 | XMS_ITS | Encounter Summary ---
Author Organization [facility] Address [address] [place] [address] Phone Care Team Providers Care Applications Support Specialist Name Role Phone Marek Nogueira DO Primary Care Provider [phone] Encounter Details Date Type Department Care Team (Late st Contact Info) Description 02/27/[address]25 [address] [facility] [address] [place] [phone] Scanning, Generic Provider Social History Tobacco Use [...] on filedocumented in this encounter Care Teams Applications Support Specialist Relationship Specialty Start Date End Date Marek Nogueira DO [address] [place] [address] PCP - General Internal Medicine 03/16/25 documented as of this encounter
--- OUTSIDE RECORDS SUMMARY | 2025-04-13 10:40 | XMS_ITS | CCD ---
Author Organization [facility] CliniSywv Care Team Providers Care Scientific Associate Name Role Phone Lala Neri Unavailable MAREK SANTIAGO JR Primary Care Physician BRITTANY Zhong, DR STEVENS Admitting Unavailable BRITATNY ., DR STEVENS Consulting Unavailable PAMELA, DR WHITE Primary Care Unavailable BRITTANY Zhong, DR STEVENS Attending Unavailable TANJA BECKER Consulting Unavailable LALA NERI Attending Unavailable LALA NERI Admitting Unavailable PAMELA, DR WHITE Primary Care Unavailable LALA NERI Consulting Unavailable PAMELA, DR WHITE Primary Care Unavailable CRISTINA OTERO Attending Unavailable CRISTINA OTERO Admitting Unavailable TRACEE, DR ROX Duong Consulting Unavailable CRISTINA OTERO Consulting Unavailable PAMELA, DR WHITE Primary Care Unavailable ARSENIO GOODWIN Attending Unavailable JOSÉ LUIS WILKERSON Consulting UnavailARSENIO Choi Admitting Unavailable Serafin ARAGON Attending Unavailable Dyan MASSEY Attending Unavailable Marek Santiago JR Primary Care Provider [phone] NON STAFF Attending Provider Unavailable Melody Siddiqi APRN Emergency Provider Orlando Walton MD Admit Provider Orlando Walton MD Attending Provider Negrita Smyth RN Other Provider Unavailable Tiny Siu DO Other Provider [phone] Marla Ware MD Other Provider Stephon Leon MD Other Provider Agatha Styles APRN Other Provider [phone] Nemo Hensley MD Other Provider Aliyah Heredia MD Other Provider [facility] Other Provider [phone] Dyan Sharp DO Attending Provider NON STAFF Admitting Unavailable NON STAFF Attending Unavailable NON STAFF Admitting Unavailable NON STAFF Attending Unavailable Marek Santiago Primary Care Unavailable Dyan Sharp Attending Unavailable [facility] Marek Love Primary Care Unavailable Orlando Walton Admitting Unavailable Libra, Negrita Consulting Unavailable Negrita Smyth Consulting Unavailable Tiny Siu Consulting Unavailable Marla Ware Consulting Unavailable Stephon Leon Consulting Unavailable Agatha Styles Consulting Unavailable Nemo Hensley Consulting Unavailable Aliyah Heredia Consulting Unavailable Jessica Garcia Consulting Unavailable Marek Santiago DO Primary Care Provider [phone] STEPHON LEON Referring Unavailable [facility] Primary Care Unavailable Derik Marrero Attending Unavailable Derik Marrero Admitting Unavailable VALONE JR., MAREK Aleman Primary Care Unavailabl Derik Mccray Attending Unavailable Derik Marrero Admitting Unavailable VALONE JR., MAREK Love Primary Care Unavailabl e Derik Marrero Attending Unavailable Derik Marrero Admitting Unavailable VALONE JR., MAREK Love Primary Care Unavailabl e Derik Marrero Attending Unavailable VALONE JR., MAREK Aleman Primary Care Unavailabl Derik Mccray Admitting Unavailable Derik Marrero Attending Unavailable VALONE JR., MAREK Love Primary Care Unavailabl e VALONE JR., MAREK L Primary Care Unavailabl e Derik Marrero Attending Unavailable Allergies Allergy Classification Reported Allergen(s) Allergy Type Date of Onset Reaction(s) Facility (1 source) No Known Medication Allergies; Translations: [No Known Medication Allergies] Propensity to adverse reactions (disorder) [facility] Repository Medications Current Medications Medication [...] oral capsule (11 sources) Thiazide Diuretic Start: 2 take 4 capsules by mouth once daily [...] therapy Start: 03-20-2023 take 1 capsule by [facility] once daily Flomax 0.4 mg Cap 0.4 [...] Discontinued 100 MG PO Twice daily 10 5 December 08, 2021 12:00am February 26, 2025 [...] Start Date: 09/07/21 Status: Ordered Livalo Active regadenoson (Lexiscan) injection 0.4 mg (1 source) Start: 03-16-2025 End: 03-16-2025 0.4 mg, intravenous, Once, O n Sun03/16/25 at 0915, For 1 dose Tc-99m tetrofosmin (Myoview) injection 10 millicurie (1 source) Start: 03-16-2025 End: 03-16-2025 10 millicurie, intravenous, Once in imaging, Starting on Sun03/16/25 at 0830, For 1 dose, Administer 45 to 90 minutes prior to imaging unless otherwise indicated. Tc-99m tetrofosmin (Myoview) injection 30 millicurie (1 source) Start: 03-16-2025 End: 03-16-2025 30 millicurie, intravenous, Once in imaging, Starting on Sun03/16/25 at 0958, For 1 dose, Administer 45 to 90 minutes prior to imaging unless otherwise indicated. Problems Active Problems Problem Classification Problem Date Documented Da te Episodic/Chronic Abdominal pain (7 sources) Flank pain; Translations: [Suprapubic pain] Onset: 09-14-2022 07-25-2019 Episodic Appendicitis and other appendiceal conditions (2 sources) Acute appendicitis; Translations: [Other acute appendicitis without perforation or gangrene] Onset: 03-20-2023 Episodic Calculus of urinary tract (13 sources) Kidney stone; Translations: [Calculus of kidney] Onset: 03-14-2022 Episodic Complication of device; implant or graft (2 sources) Retained ureteric stent 07-16-2019 Episodic Coronary atherosclerosis and other heart disease (4 sources) Ischemic heart disease; Translations: [Acute or subacute form of ischemic heart disease] Onset: 03-16-2025 03-16-2025 Chronic Diabetes mellitus without complication (8 sources) Diabetes mellitus; Translations: [Type 2 diabetes mellitus without complications] Onset: 09-16-2022 07-16-2019 Chronic Essential hypertension (1 source) Hypertensive disorder 03-08-2023 Chronic Genitourinary symptoms and ill-defined conditions (2 sources) Post-micturition incontinence 07-25-2019 Chronic Genitourinary symptoms and ill-defined conditions (5 sources) [place] hematuria; Translations: [Nocturia] Onset: 03-17-2025 09-15-2020 Episodic Hyperplasia of prostate (4 sources) Benign prostatic hypertrophy without outflow obstruction; [...] EHR Cmte Other aftercare (1 source) Other mcc (current) drug therapy; Translations: [OTH ALF CURRENT DRUG THERAPY] Onset: 09-16-2022 Episodic Other aftercare (1 source) halfway (current) use of oral hypoglycemic drugs; Translations: [ALF USE ORAL HYPOGLYCEMIC DX] Onset: 09-16-2022 Episodic [...] URETRL CALCUL OBST] Onset: 09-16-2022 Episodic Other diseases of kidney and ureters (1 source) Other obstructive and reflux uropathy; Translations: [Other obstructive and reflux uropathy] Onset: 03-17-2025 Episodic Other injuries and conditions due to [...] conditions (not mental disorders or infectious disease) (9 sources) Raised cardiac enzyme or marker; Translations: [...] days of discharge. Unclassified (1 source) A [facility] screening has identified you as FRAIL or [...] Four Ways to Beat the Frailty Risk [email or web address] tjvafdi-wso-ndqwdbcr on/nbpu-dcwyhq-cztb- eqob-pw-hubz-the-fra ilty-risk 03-01-2025 Urinary tract infections (5 sources) [...] Test Name Value Interpretation Reference Range Facility Rad - Other Radiology Report on 03-17-2025 Rad - Other Radiology Report [id number] [facility] - Other Lab [facility] - Other Lab Results [id number] F [facility] NUCLEAR STRESS TESTon 2024 NUCLEAR STRESS TEST Interpreted By: Marla Estrada and Giannuzzi Michael STUDY: MYOCARDIAL PERFUSION STRESS TEST WITH LEXISCAN Performing facility: [facility], [address] [place] [address], [address], [place] [address] [facility] Provider: Stephon Leon MD PCP: Dr. Rosy Santiago Supervising provider: Stephon Leon MD INDICATION: Signs/Symptoms: ,R79.89 Other specified abnormal findings of blood chemistry,I24.89 Other forms of acute ischemic heart disease HISTORY: Gender: M; Age: 65 y/o ; Height: cm; Weight: kg. High Cholesterol; Diabetes; Elevated cardiac enzymes Quit smoking unknown years ago. COMPARISON: No comparison. ACCESSION NUMBER(S): [id number] ORDERING CLINICIAN: STEPHON LEON TECHNIQUE: ONE DAY protocol. Stress injection: [...] Marla Ware 03/17/2025 8:19 AM Dictation workstation: [id number] [facility] MAGR Intraoperative Recordon 03-12-2025 MAGR Intraoperative Record MAGR Intra-Op Record Summary Primary Physician: Derik Marrero MD Finalized Date/Time: 03/12/25 12:39:44 Pt. Name: DYAN HARRELL DANTE BlockO.B./Sex: 1960 MALE Med Rec #: [id number] Physician: Derik Marrero MD Financial #: [id number] Pt. Type: D Room/Bed: / Admit/Disch: 02/24/25 05:41:57 - 02/24/25 10:09:00 Institution: Case Times MAGR Entry 1 Patient [...] Role Performed Surgeon - Primary Anesthesiologist of Stone Decorator Record Time In 02/24/25 08:00:00 02/24/25 07:45:00 02/24/25 07:45:00 Time Out 02/24/25 08:24:00 02/24/25 08:31:00 02/24/25 08:31:00 Procedure Cystoscopy PVP Cystoscopy PVP Cystoscopy PVP Greenlight Laser Greenlight Laser Greenlight Laser Prostate Prostate Prostate Last Modified By: Uzma Beasley RN 03/12/25 Rianna Lucero RN, Barbara RN 12:38:20 02/24/25 08:32:01 02/24/25 08:32:01 Entry 4 Entry 5 Case Attendee Afshin Goodwin [place] [employer]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 Normal [facility] Coding Summaryon 03-02-2025 Coding Summary HTMLBase 64 VrxndcwjLSq0dIn+PGhlYWQ+PE 5YJXYjR66ioAPttZ0rA3NEYDdT EuobYVQMCZoXUbJmgeUrBG1zfD NjZXJu IC8+RQ1iDVSvZirfpXEol7F7dO F5X60uae5tBTyfvAC4QAUgHvQn ypuaj3immYb5GEqaWjkmUkBa ABXekO04OLV5oA47Mo18oKQxpF Qou4gxcRy5JaObYMMiXZW3hYdt JJwzy4HaMTXxV23giBTml6P8 XUXkkNmooDElHfLxlFF2aS3oLW hzpzdst9qbidajElo1nz00sEWu v5U6oMI6R5ArjkC6IWBhwGCb YdaerOMSzD9dsbkiv1tcvfxzEd MpRNBkXIy6SOl5WXZyiJcuPkMb US04DQO0EBLylsAcI2OpRWTl hPeqQrQ8i5V1Ya5EW5PPSzqkP3 VNTUFSWTwvdGQ+KB82zw83Y0Wf UszdThn0ZSZaXSL7yYZ2vC7h JSGyHUocg6P9gDP5E1GvbuInvf 5hy1tgOPOaRLeeA13jbAWlq8N8 URCfiVP0OHEzvIxcOdFwsG17 Oyc+WYGalGdzr2DtQbtbt8fiw8 wzoDf9AarcHFOcgiGtqExtWLQ7 k0ZsCv5rBPXhqCN9kVR9pJ5a BaWqRrZ0RAhhJ091ZuTnjQQsBx zpP61oS6VbsSX+SGBiLph5TLSq dPiaMW4hH3EsZDZqrrxukHZw mOmqFR7tODKkghksFSZvhR7qJV KsM3n7HyCsQiQ7FIvrW3BuFBSb pyjxGs77cR7jMyTyHqP4XOgf K4RgckY1CLExvQTxMPzaKJE7T7 5bj3Z1XJKvVDAaVPR4mLE6lD8l bGlnbjogbGVmdDsgdmVydGlj KYtuUChzM978DFYuhTrlMjCrQH luZyBEYXRlOiAgMDgvMjUvMjAy NTwvdGQ+BODxYPL4sYoqBBVv kUMcFFpuUd1uxXfpmSfdDZ0bTF EccslcYWVfkP8wGDHlmAYhpSoa SH4kQPRzaswgt695MrHaCNF1 QGPzjNGmR4GimB2vUcLuOPGcMD SgB7ZbfUAcBHhhS101CDooGyO3 OIDezwXgK6MyHQOtkFsoKyX2 i5K3Fo9Pj8CnbvohO0JdjPKqOq BbHrwxZUk4A2TgFhqraRZ+PC90 LBIhLC06ESf6WNC7lThcVLjn HYQyC5IgtN7iIsZtUULcDGYoVc c+PHRhYmxlIHdpZHRoPScxMDAl QhFkhZzpLH1fAn6hYCGkRPRw kUrnsDYuIiZxp9xzJXRcZRmnJF 7okWrnV2GcsPL8UCHrc9w6Nu29 R81vN2GxfLY+QTNubSK1gOS7 tO5eYiFjNcO4YMuzR374HaBptY DqDvitp4tvv8dcyAd8HqN5KJSn wuYwgIwxSVH1f0PyPl83D19u IHdpZHRoPSIxNSUiIHZhbGlnbj 7jfG3xHx8+DQWwrDN5rWI9nI7a NxIzGsH7FUjqX939WtXtlLYw Tntuq1pty3pidTy1WkGcQXSrlk JwyHxgDLH8d8JvIn07X8WfjAvd o5FoXew0fd61hNDbq0D8yKK6 P7YfQHAxsqzxiUOsdScfRV1uRA PtjgorORUmqO2nMQLdT1o9DjOa EkW3QOweI3PdwgB5VKZhjJQh WZFysLHJtN4ezbllc1ufbhydLg RpCRLqQGg7PHp5YPQoxVfmNxFn KLD9ZrM2ZGO6hADoiM6mwLai tuogpW6sIey+QOH6zSNxyKZDWE 1lOjwvdGQ+IUNuGLP6gUvdOEms EXHtpW0xHKNeZ8p0QwKdHvD9 WHvtT1WzviS3OCUpfHQqCPTcaR VWaT5xyxobx6dayboaUoYmVPHp HGh9TFz0JUEfiZjqUrAgPIF4 OkW8SYE4jMEahK9roZkypjcghU 9wOyc+EyttcUeyEIV4OSs5B0Zi Dqx7VTBwoHhrBD1yuVTfXLju Pf4vbBqomNdrHA5pRFCwblcxv8 65YkAnk7ejWNCzwLWfNFkqRQI9 C06hu8K6GSImEXKlWIN8qEG1 xU7qxIkjmiajsXVueYdnxxUqaZ hkHBvtDKvmT461OTIywGuiHuTg VVa0A5ByEvy5MENasQiwWJ9i kRFyZPkwQj0fmLmlaXxiLA2mSO Hgdbpvi789ZnVbh8umPBPczMTl LZvzTBB3T04qa3P6MXVnEPMq MWH3dNX6kG9zqLbxfcwmrBQcmC ddciBhxPygQIfaNAhcG123WHTx lXqrKcMjfOr0T9WqKwq2KONs fNfmRJ0hcEBzAXzmJw3ofIxkmG ysCY9eOHQmzywxe324LbXcq0uf KYWunHJsLCbnXPF2N25of8P4 YVNlLNVgLKM7lJH3uX7xsBiwdf ogbGVmdDsgdmVydGljYWwtYWxp E013ZXXmtIuyNbLalAmlznXd QMknLDq4N3AlGuvlhAY+PC90YW CjKV10fQGuhTVyt5ttrKj5ZaIu YZOtUFO4zVvvXNcjw2AxEOZn D97meXFbt1B8SGFixNjieHIxRq HocMO9yO1ySAonlemqs5jdfhxa Gvltn8wvpo93hV12K56gVJis OSDkEJApXCBaLSNfzPukou4paU 9wIi8+WHEhvLA7uFC6bG4qPLGm NdA8GMokO375HhRozMJjEbnt d3kzw7yxiAi8DbI9WUBysoFfkY jgAKR7n2XrMz07I99iDGjpMCOx MWLcTPTlOTQvuAemid8swQ0n Ii8+JNSyvVV3aTV7pE1rSxVvHs G9RJknG448GpRljXZhDtehJ55y S9CfsVG+GVXvBav0WAFnbMkn DF1qhYSwXEhwFw4sBDM0KdGwCo YrOMfnI7OhSEUwqauohfirsCY4 DZKhRAAiiL42Lj0tvUbrKOXf pTAWdC9acuhnx3bvarwtXsWpAD KgLJe9QPe2DTYhdLatIhOhUAE2 ZlN6JPE4rIFebA1jeObolprx gD5tA8CrVIOieiejJu48qZ8nSg LcNxT9TCmfXuk+H4eZRVhIPUDQ SUNIQUVMIFJBWTwvdGQ+PHRk DWP7fIdfRWfiSXIwmO9aIGIsU9 y7JbFyIzJ9BScsK3IbMILqopav Yb44vB0dSaEzKxW3YHeyX8Ta loF1YURfmTMpEPcsRII1H59uq5 C6HAHmAOQlPUP0jNI7dU1veFaz bjogbGVmdDsgdmVydGljYWwt ZFdgZ319SIKwuZkoTsS9LoRpYd D2FHc6T4TzAik1WMMjpZjrOC7g gDIvTRplNp1cvZnkqJsyKS6p BKQkljdkSIEirC0kPGHooNPeeP gqUP2sYGIhzmpoa555OjViQYL3 JCJdmYHrU8WzjH1mAmBlYXWw GGNiE2DbmCNjWJljI504SEgoKb Y6ZWMwbjIxJ9DaEGAhfFyyQuP9 a5L9Cn64DqONUUHactxviFA+ LKLdRMR1uXcgGDaoIXCewP6cJI ZzL0k5SwPaSmR1CVmsP1EmYMUi qjaaUf89iV3fClRdTeD7LDoo T9SrfyA6RJKlaEQgNJhpKRF3S7 5uv5U9CZIdRJFsXQO4hTN4yG0f bGlnbjogbGVmdDsgdmVydGlj OHdgMSxdC019VXOiqBgwNe8YTS K2Y1NnKdy7JKMmlYjhLF0bkGWw EZzgYj6blLwvmDsfKY2aTTDb tusgQPCswN3nSQTtkREipVkuCG 3xNTVrxuzff013AvHfCOE0INIp dJUlS8LkyT1wFwCoHFNfCREf S8MhzDVqEDxkH549NKixTjZ2BT DlfoBlX6YtJEKkwDvqDqG2i2L1 Vf6TRYqyY6MsF7RaxOjnuZO+ IU01ks45P5MlJwucBnz3LZNlFI Z9jLT3mM1lOJYvQAifl0R9dKS2 O8WjiiHnxx2da5waTVCzHNmr B20mfDGui8E4WDWdyFN0FWNlpR xyKpSgrU70Ooq+XGMalVzsn0Vs Lsftb3kfk0qpbMv9BmCxSLWy qtNkhQpkHPT5p0ShWk24R60tKH xgMTIdKNMuJCAeLIMddEbptd1l wV1jZx5+QJWqgYB1aIG2zK0z OtRkVfD0JVvwG954TjDgiMWpVe vph2thq2mrvEp2BnXdMFMuetYj eXeiPPY3c4RtEg83F7FbcBtr h7MrHmp2oi52hAGrr0D2vNM4F5 ZyBFFouphtjHNobIhtRT6qFNIi xifrIAWzdB8aFAHoW9v9DwVo XhF3EMfnC5OlrtT1HHByeRRoPM JixJUHfS6vjjmpj0frgbxcXiTt XWOyIEl0XLh4RDZxvNyoZzNq KGQ2ReA8OKO1lSHmlH2iiNjmqx hcuW0cCsl+IEa4m1pqnWJrTX7x jVR5GU53ME87cERgg6F8qFW8 Y3UuOLGdsxzawpswzNF8FZOjYN GnjH99Sj2diCclPj8jLTZbDJH0 QIGbuGZtY0YkvD2lKuCuWIQh DPHaM7GfgYQwKIjyX226UGngJu I0HXEkdoBfK2UaBHWswAokWfB3 c3T3Cf7KCW47XV42TW14lDHd f2X6xHS9O1LrRLNjjhuiaiprwF J4YGWyPQDyxK35Bf3xeTivHl1v NTShOZX8QLFanXGjN9CxrC7m PeVcMGZwECWnP2FvxPFgNVdwF7 23HTiwXeN5GMNqmaWyU5OnVXJt vJnlBxD6p6A5Hg1PZg41AI23 RK13eCOyf6T8pMD3W6VtMIUkzb bghhoqqOV5GDLwNSNsxR11Nd6m cOclBd4lTWPdWYF5XFFcvQQl R9JanN7gNcWnPHReRDWxI8JohL LtSNbfS479TNqoMkB4RDFzxcDp V2AnAXUquQcxEuA4w5I4Xm2G BDniqzv0Q6WsJcxanPH+PC90YW QnWU73bIAptUOva4yyiKr1ZxBl SQSjJSH1nVztKYfuj3UrFUBo Y29 (more content not included)... Normal [facility] Basic Metabolic Panelon 02-07 Creatinine Clr Calc Pharmacy 99.69 Normal [facility] Comment on above: Result Comment: PERF ORMED BY: [place] [id number] PATHOLOGIST COAT CUTTER ASTRID HELLER M.D. Performed By: #### H S TROP #### [address] [facility] GFR/1.73 sq M.predicted MDRD (S/P/Bld) [Vol rate/Area] mL/min/{1.73_m2} Normal [facility] Comment on above: Performed By: #### H S TROP #### [place] [id number] [place] Basophils [#/volume] in Bloo d by Automated countOrdered By: Orlando Walton on 03-01-2025 Basophils (Bld) [#/Vol] 0.1 10*3/uL Normal 0.0-0.2 [facility] Comment on above: Result Comment: PERF ORMED BY: [place] [address] PATHOLOGIST COAT CUTTER ASTRID HELLER M.D. Performed By: #### H S TROP #### [place] [address] [place] Basophils/100 leukocytes in Blood by Automated countOrdered By: Orlando Walton on 03-01-2025 Basophils/100 WBC (Bld) 0.8 % Normal . [facility] Comment on above: Performed By: #### H S TROP #### [address] Blood Cultureon 03-01-2025 Bacteria identified Cx Nom (Bld) NO GROWTH 5 DAYS PERFORMED BY: [place] [address] PATHOLOGIST COAT CUTTER ASTRID HELLER M.D. Normal [facility] Comment on above: Performed By: #### H S TROP #### [address] Bacteria identified Cx Nom (Bld) NO GROWTH 5 DAYS PERFORMED BY: [place] [address] PATHOLOGIST COAT CUTTER ASTRID HELLER M.D. Normal [facility] Comment on above: Performed By: #### H S TROP #### [facility] [address] [place] [address] [place] Calcium [Mass/volume] in Ser um or PlasmaOrdered By: Orlando Walton on 03-01-2025 Calcium [Mass/Vol] 8.9 mg/dL Normal 8.6-10.3 [facility] Comment on above: Performed By: #### H S TROP #### [place] [address] [place] Carbon dioxide, total [Moles /volume] in Serum or PlasmaOrdered By: Orlando Walton on 03-01-2025 CO2 [Moles/Vol] 25.0 mmol/L Normal 21.0-31.0 [facility] Comment on above: Performed By: #### H S TROP #### [address] Chloride [Moles/volume] in S kristian or PlasmaOrdered By: Orlando Walton on 03-01-2025 Chloride [Moles/Vol] 107 mmol/L Normal 98-107 [facility] Comment on above: Performed By: #### H S TROP #### [address] Complete Blood Count Auto Di ffon 03-01-2025 Mean Corpuscular HGB Conc 34.8 g/dL Normal 32.5-35.6 [facility] Comment on above: Performed By: #### H S TROP #### [address] NRBC% 0.1 /100{WBC} Normal 0-0.5 [facility] Comment on above: Performed By: #### H S TROP #### [address] White Blood Count 9.4 [CFU]/mL Normal 4.1-10.5 [facility] Comment on above: Performed By: #### H S TROP #### [address] Creatinine [Mass/volume] in Serum or PlasmaOrdered By: Orlando Walton on 03-01-2025 Creatinine [Mass/Vol] 0.59 mg/dL Low 0.70-1.30 [facility] Comment on above: Performed By: #### H S TROP #### [address] ECG 12 lead ECGon 03-01-2025 ECG 12 lead ECG [facility] [address] [place] [address] [place] [address] Electrocardiograph Report Signed Patient: Dyan Harrell MR#: [id number] : 1960 Acct:[id number] Age/Sex: 64 / M ADM Date: 02/26/25 Loc: Room: [address] [place] [address] Type: ADM IN Attending Dr: Dyan Sharp DO Ordering Provider: Stephon Leon MD Date of Service: 03/01/25 ECG/ECG 12 [...] depressed in Lateral leads Confirmed by STEPHON LEON MD (Formerly [facility]) on 03/01/2025 9:51:48 AM Referred By: Electronically Signed By: STEPHON LEON MD Transcribed By: MUS Signed By Stephon Leon MD 0 03/01/25 0951 Normal [facility] Eosinophils [#/volume] in Bl ood by Automated countOrdered By: Orlando Walton on 03-01-2025 Eosinophils (Bld) [#/Vol] 0.3 10*3/uL Normal 0.0-0.45 [facility] Comment on above: Performed By: #### H S TROP #### [facility] [address] [place] [address] Eosinophils/100 leukocytes i n Blood by Automated countOrdered By: Orlando Walton on 03-01-2025 Eosinophils/100 WBC (Bld) 3.4 % Normal . [facility] Comment on above: Performed By: #### H S TROP #### [facility] [address] [place] [address] [place] Erythrocyte distribution wid th [Ratio] by Automated countOrdered By: Orlando Walton on 03-01-2025 Erythrocyte distribution width (RBC) [Ratio] 13.9 % Normal 12.0-14.8 [facility] Comment on above: Performed By: #### H S TROP #### [facility] [address] Erythrocytes [#/volume] in B lood by Automated countOrdered By: Orlando Walton on 03-01-2025 RBC (Bld) [#/Vol] 3.89 10*6/uL Low 3.90-5.60 [facility] Comment on above: Performed By: #### H S TROP #### [facility] [address] Glomerular filtration rate [ Volume Rate/Area] in Serum, Plasma or Blood by CreatinineOrdered By: Orlando Walton on 03-01-2025 Glomerular filtration rate [Volume Rate/Area] in Serum, Plasma or Blood by Creatinine > 60.0 mL/Min [facility] Glucose [Mass/volume] in Ser um or PlasmaOrdered By: Orlando Walton on 03-01-2025 Glucose [Mass/Vol] 152 mg/dL High 70-100 [facility] Comment on above: ADA recommended refe rence rangeRandom Glucose Reference Range is dependent on time and content of last meal. Glucose of more than 200 mg/dL in a nonstressed, ambulatory subject supports the diagnosis of Diabetes Mellitus. Result Comment: [place] om Glucose Reference Range is dependent on time and content of last meal. Glucose of more than 200 mg/dL in a nonstressed, ambulatory subject supports the diagnosis of Diabetes Mellitus. ADA recommended reference range Performed By: #### H S TROP #### [facility] [address] Hematocrit [Volume Fraction] of Blood by Automated countOrdered By: Orlando Walton on 03-01-2025 Hematocrit (Bld) [Volume fraction] 32.4 % Low 38.8-50.0 [facility] Comment on above: Performed By: #### H S TROP #### [facility] [address] Hemoglobin [Mass/volume] in BloodOrdered By: Orlando Walton on 03-01-2025 Hemoglobin (Bld) [Mass/Vol] 11.3 g/dL Low 13.0-17.0 [facility] Comment on above: Performed By: #### H S TROP #### [address] Leukocytes [#/volume] correc rosetta for nucleated erythrocytes in Blood by Automated counOrdered By: Orlando Walton on 03-01-2025 WBC corrected for nucl RBC Auto (Bld) [#/Vol] 9.4 10*3/uL 4.1-10.5 [facility] Leukocytes [#/volume] in Blo od by Automated countOrdered By: Orlando Walton on 03-01-2025 WBC (Bld) [#/Vol] 9.4 10*3/uL Normal 4.1-10.5 [facility] Comment on above: Performed By: #### H S TROP #### [address] Lymphocytes [#/volume] in Bl ood by Automated countOrdered By: Orlando Walton on 03-01-2025 Lymphocytes (Bld) [#/Vol] 2.1 10*3/uL Normal 1.00-4.8 [facility] Comment on above: Performed By: #### H S TROP #### [address] Lymphocytes/100 leukocytes i n Blood by Automated countOrdered By: Orlando Walton on 03-01-2025 Lymphocytes/100 WBC (Bld) 22.3 % Normal . [facility] Comment on above: Performed By: #### H S TROP #### [place] [address] [place] MCH [Entitic mass] by Automa rosetta countOrdered By: Orlando Walton on 03-01-2025 MCH (RBC) [Entitic mass] 29.0 pg Normal 27.5-35.2 [facility] Comment on above: Performed By: #### H S TROP #### [address] MCHC Auto (RBC) [Mass/Vol]Or dered By: Orlando Walton on 03-01-2025 MCHC (RBC) [Mass/Vol] 34.8 g/dL 32.5-35.6 [facility] MCV [Entitic volume] by Auto mated countOrdered By: Orlando Walton on 03-01-2025 MCV (RBC) [Entitic vol] 83.2 fL Low 83.5-101 [facility] Comment on above: Performed By: #### H S TROP #### [facility] [address] [place] [address] [place] Monocytes [#/volume] in Bloo d by Automated countOrdered By: Orlando Walton on 03-01-2025 Monocytes (Bld) [#/Vol] 0.8 10*3/uL Normal 0.0-0.8 [facility] Comment on above: Performed By: #### H S TROP #### [place] [address] [place] Monocytes/100 leukocytes in Blood by Automated countOrdered By: Orlando Walton on 03-01-2025 Monocytes/100 WBC (Bld) 9.0 % Normal . [facility] Comment on above: Performed By: #### H S TROP #### [place] [address] [place] Neutrophils [#/volume] in Bl ood by Automated countOrdered By: Orlando Walton on 03-01-2025 Neutrophils (Bld) [#/Vol] 6.0 10*3/uL Normal 1.8-7.7 [facility] Comment on above: Performed By: #### H S TROP #### [place] [address] [place] Neutrophils/100 leukocytes i n Blood by Automated countOrdered By: Orlando Walton on 03-01-2025 Neutrophils/100 WBC (Bld) 64.5 % Normal . [facility] Comment on above: Performed By: #### H S TROP #### [address] No Panel InformationOrdered By: Orlando Walton on 03-01-2025 Pharmacy Creatinine Clearance (Chem 99.69 [facility] Nucleated erythrocytes [Pres ence] in Blood by Automated countOrdered By: Orlando Walton on 03-01-2025 Nucleated RBC Auto Ql (Bld) 0.1 /100{WBC} 0-0.5 [facility] Platelet mean volume [Entiti c volume] in Blood by Automated countOrdered By: Orlando Walton on 03-01-2025 Platelet mean volume (Bld) [Entitic vol] 7.2 fL Normal 6.6-10.1 [facility] Comment on above: Performed By: #### H S TROP #### [address] Platelets [#/volume] in Bloo d by Automated countOrdered By: Orlando Walton on 03-01-2025 Platelets (Bld) [#/Vol] 450 10*3/uL Normal 150-450 [facility] Comment on above: Performed By: #### H S TROP #### [place] [address] [place] Potassium [Moles/volume] in Serum or PlasmaOrdered By: Orlando Walton on 03-01-2025 Potassium [Moles/Vol] 3.9 mmol/L Normal 3.5-5.1 [facility] Comment on above: Performed By: #### H S TROP #### [address] Serum or plasma anion gap de terminationOrdered By: Orlando Walton on 03-01-2025 Anion gap [Moles/Vol] 8.9 mmol/L Normal 6.0-15.0 [facility] Comment on above: Performed By: #### H S TROP #### [place] [address] [place] Sodium [Moles/volume] in Ser um or PlasmaOrdered By: Orlando Walton on 03-01-2025 Sodium [Moles/Vol] 137 mmol/L Normal 136-145 [facility] Comment on above: Performed By: #### H S TROP #### [place] [address] [place] Urea nitrogen [Mass/volume] in Serum or PlasmaOrdered By: Orlando Walton on 03-01-2025 Urea nitrogen [Mass/Vol] 10 mg/dL Normal 7-25 [facility] Comment on above: Performed By: #### H S TROP #### [facility] [address] Basic Metabolic Panelon 02-07 Anion gap [Moles/Vol] 10.3 mmol/L Normal 6.0-15.0 [facility] Comment on above: Performed By: #### C UBLD, LACTIC, BNP, CK, HS TROP, PTT, PT, MG, CMP, CBC #### [facility] [address] Calcium [Mass/Vol] 8.7 mg/dL Normal 8.6-10.3 [facility] Comment on above: Performed By: #### C UBLD, LACTIC, BNP, CK, HS TROP, PTT, PT, MG, CMP, CBC #### [address] Chloride [Moles/Vol] 105 mmol/L Normal 98-107 [facility] Comment on above: Performed By: #### C UBLD, LACTIC, BNP, CK, HS TROP, PTT, PT, MG, CMP, CBC #### [address] CO2 [Moles/Vol] 23.5 mmol/L Normal 21.0-31.0 [facility] Comment on above: Performed By: #### C UBLD, LACTIC, BNP, CK, HS TROP, PTT, PT, MG, CMP, CBC #### [address] Creatinine [Mass/Vol] 0.64 mg/dL Low 0.70-1.30 [facility] Comment on above: Performed By: #### C UBLD, LACTIC, BNP, CK, HS TROP, PTT, PT, MG, CMP, CBC #### [place] [address] [place] Creatinine Clr Calc Pharmacy 99.69 Normal [facility] Comment on above: Result Comment: PERF ORMED BY: [place] [address] PATHOLOGIST [employer]AT CUTTER ASTRID HELLER M.D. Performed By: #### C UBLD, LACTIC, BNP, CK, HS TROP, PTT, PT, MG, CMP, CBC #### [address] GFR/1.73 sq M.predicted MDRD (S/P/Bld) [Vol rate/Area] mL/min/{1.73_m2} Normal [facility] Comment on above: Performed By: #### C UBLD, LACTIC, BNP, CK, HS TROP, PTT, PT, MG, CMP, CBC #### [address] Glucose [Mass/Vol] 145 mg/dL High 70-100 [facility] Comment on above: Result Comment: [facility] Glucose Reference Range is dependent on time and content of last meal. Glucose of more than 200 mg/dL in a nonstressed, ambulatory subject supports the diagnosis of Diabetes Mellitus. ADA recommended reference range Performed By: #### C UBLD, LACTIC, BNP, CK, HS TROP, PTT, PT, MG, CMP, CBC #### [address] Potassium [Moles/Vol] 3.8 mmol/L Normal 3.5-5.1 [facility] Comment on above: Performed By: #### C UBLD, LACTIC, BNP, CK, HS TROP, PTT, PT, MG, CMP, CBC #### [address] Sodium [Moles/Vol] 135 mmol/L Low 136-145 [facility] Comment on above: Performed By: #### C UBLD, LACTIC, BNP, CK, HS TROP, PTT, PT, MG, CMP, CBC #### [address] Urea nitrogen [Mass/Vol] 12 mg/dL Normal 7-25 [facility] Comment on above: Performed By: #### C UBLD, LACTIC, BNP, CK, HS TROP, PTT, PT, MG, CMP, CBC #### [address] Complete Blood Count Auto Di ffon 02-28-2025 Basophils (Bld) [#/Vol] 0.1 10*3/uL Normal 0.0-0.2 [facility] Comment on above: Result Comment: PERF ORMED BY: [place] [address] PATHOLOGIST [employer] CUTTER ASTRID HELLER M.D. Performed By: #### C UBLD, LACTIC, BNP, CK, HS TROP, PTT, PT, MG, CMP, CBC #### [address] Basophils/100 WBC (Bld) 1.0 % Normal . [facility] Comment on above: Performed By: #### C UBLD, LACTIC, BNP, CK, HS TROP, PTT, PT, MG, CMP, CBC #### [address] Eosinophils (Bld) [#/Vol] 0.3 10*3/uL Normal 0.0-0.45 [facility] Comment on above: Performed By: #### C UBLD, LACTIC, BNP, CK, HS TROP, PTT, PT, MG, CMP, CBC #### [address] Eosinophils/100 WBC (Bld) 3.1 % Normal . [facility] Comment on above: Performed By: #### C UBLD, LACTIC, BNP, CK, HS TROP, PTT, PT, MG, CMP, CBC #### [address] Erythrocyte distribution width (RBC) [Ratio] 14.0 % Normal 12.0-14.8 [facility] Comment on above: Performed By: #### C UBLD, LACTIC, BNP, CK, HS TROP, PTT, PT, MG, CMP, CBC #### [address] Hematocrit (Bld) [Volume fraction] 33.5 % Low 38.8-50.0 [facility] Comment on above: Performed By: #### C UBLD, LACTIC, BNP, CK, HS TROP, PTT, PT, MG, CMP, CBC #### [address] Hemoglobin (Bld) [Mass/Vol] 11.6 g/dL Low 13.0-17.0 [facility] Comment on above: Performed By: #### C UBLD, LACTIC, BNP, CK, HS TROP, PTT, PT, MG, CMP, CBC #### [address] Lymphocytes (Bld) [#/Vol] 1.2 10*3/uL Normal 1.00-4.8 [facility] Comment on above: Performed By: #### C UBLD, LACTIC, BNP, CK, HS TROP, PTT, PT, MG, CMP, CBC #### [address] Lymphocytes/100 WBC (Bld) 11.7 % Normal . [facility] Comment on above: Performed By: #### C UBLD, LACTIC, BNP, CK, HS TROP, PTT, PT, MG, CMP, CBC #### [address] MCH (RBC) [Entitic mass] 28.9 pg Normal 27.5-35.2 [facility] Comment on above: Performed By: #### C UBLD, LACTIC, BNP, CK, HS TROP, PTT, PT, MG, CMP, CBC #### [address] MCV (RBC) [Entitic vol] 83.6 fL Normal 83.5-101 [facility] Comment on above: Performed By: #### C UBLD, LACTIC, BNP, CK, HS TROP, PTT, PT, MG, CMP, CBC #### [address] Mean Corpuscular HGB Conc 34.6 g/dL Normal 32.5-35.6 [facility] Comment on above: Performed By: #### C UBLD, LACTIC, BNP, CK, HS TROP, PTT, PT, MG, CMP, CBC #### [address] Monocytes (Bld) [#/Vol] 0.7 10*3/uL Normal 0.0-0.8 [facility] Comment on above: Performed By: #### C UBLD, LACTIC, BNP, CK, HS TROP, PTT, PT, MG, CMP, CBC #### [address] Monocytes/100 WBC (Bld) 6.7 % Normal . [facility] Comment on above: Performed By: #### C UBLD, LACTIC, BNP, CK, HS TROP, PTT, PT, MG, CMP, CBC #### [address] Neutrophils (Bld) [#/Vol] 7.9 10*3/uL High 1.8-7.7 [facility] Comment on above: Performed By: #### C UBLD, LACTIC, BNP, CK, HS TROP, PTT, PT, MG, CMP, CBC #### [address] Neutrophils/100 WBC (Bld) 77.5 % Normal . [facility] Comment on above: Performed By: #### C UBLD, LACTIC, BNP, CK, HS TROP, PTT, PT, MG, CMP, CBC #### [address] NRBC% 0.0 /100{WBC} Normal 0-0.5 [facility] Comment on above: Performed By: #### C UBLD, LACTIC, BNP, CK, HS TROP, PTT, PT, MG, CMP, CBC #### [address] Platelet mean volume (Bld) [Entitic vol] 7.4 fL Normal 6.6-10.1 [facility] Comment on above: Performed By: #### C UBLD, LACTIC, BNP, CK, HS TROP, PTT, PT, MG, CMP, CBC #### [facility] [address] Platelets (Bld) [#/Vol] 399 10*3/uL Normal 150-450 [facility] Comment on above: Performed By: #### C UBLD, LACTIC, BNP, CK, HS TROP, PTT, PT, MG, CMP, CBC #### [address] RBC (Bld) [#/Vol] 4.01 10*6/uL Normal 3.90-5.60 [facility] Comment on above: Performed By: #### C UBLD, LACTIC, BNP, CK, HS TROP, PTT, PT, MG, CMP, CBC #### [address] WBC (Bld) [#/Vol] 10.2 10*3/uL Normal 4.1-10.5 [facility] Comment on above: Performed By: #### C UBLD, LACTIC, BNP, CK, HS TROP, PTT, PT, MG, CMP, CBC #### [address] White Blood Count 10.2 [CFU]/mL Normal 4.1-10.5 [facility] Comment on above: Performed By: #### C UBLD, LACTIC, BNP, CK, HS TROP, PTT, PT, MG, CMP, CBC #### [address] Basic Metabolic Panelon 08-2 -2024 Anion gap [Moles/Vol] 9.8 mmol/L Normal 6.0-15.0 [facility] Comment on above: Performed By: #### C UU #### [address] Calcium [Mass/Vol] 9.0 mg/dL Normal 8.6-10.3 [facility] Comment on above: Performed By: #### C UU #### [address] Chloride [Moles/Vol] 105 mmol/L Normal 98-107 [facility] Comment on above: Performed By: #### C UU #### [address] CO2 [Moles/Vol] 26.3 mmol/L Normal 21.0-31.0 [facility] Comment on above: Performed By: #### C UU #### [address] Creatinine [Mass/Vol] 0.98 mg/dL Normal 0.70-1.30 [facility] Comment on above: Performed By: #### C UU #### [place] [address] [place] Creatinine Clr Calc Pharmacy 81.38 Normal [facility] Comment on above: Result Comment: PERF ORMED BY: [place] [address] PATHOLOGIST [employer] CUTTER ASTRID HELLER M.D. Performed By: #### C UU #### [place] [address] [place] GFR/1.73 sq M.predicted MDRD (S/P/Bld) [Vol rate/Area] mL/min/{1.73_m2} Normal [facility] Comment on above: Performed By: #### C UU #### [address] Glucose [Mass/Vol] 157 mg/dL High 70-100 [facility] Comment on above: Result Comment: [place] Glucose Reference Range is dependent on time and content of last meal. Glucose of more than 200 mg/dL in a nonstressed, ambulatory subject supports the diagnosis of Diabetes Mellitus. ADA recommended reference range Performed By: #### C UU #### [address] Potassium [Moles/Vol] 4.1 mmol/L Normal 3.5-5.1 [facility] Comment on above: Performed By: #### C UU #### [place] [address] [place] Sodium [Moles/Vol] 137 mmol/L Normal 136-145 [facility] Comment on above: Performed By: #### C UU #### [address] Urea nitrogen [Mass/Vol] 13 mg/dL Normal 7-25 [facility] Comment on above: Performed By: #### C UU #### [address] Complete Blood Count Auto Di ffon 02-27-2025 Basophils (Bld) [#/Vol] 0.1 10*3/uL Normal 0.0-0.2 [facility] Comment on above: Result Comment: PERF ORMED BY: [place] [address] PATHOLOGIST [employer] CUTTER ASTRID HELLER M.D. Performed By: #### C UU #### [address] Basophils/100 WBC (Bld) 0.8 % Normal . [facility] Comment on above: Performed By: #### C UU #### [address] Eosinophils (Bld) [#/Vol] 0.0 10*3/uL Normal 0.0-0.45 [facility] Comment on above: Performed By: #### C UU #### [address] Eosinophils/100 WBC (Bld) 0.2 % Normal . [facility] Comment on above: Performed By: #### C UU #### [address] Erythrocyte distribution width (RBC) [Ratio] 13.7 % Normal 12.0-14.8 [facility] Comment on above: Performed By: #### C UU #### [address] Hematocrit (Bld) [Volume fraction] 35.4 % Low 38.8-50.0 [facility] Comment on above: Performed By: #### C UU #### [address] Hemoglobin (Bld) [Mass/Vol] 11.9 g/dL Low 13.0-17.0 [facility] Comment on above: Performed By: #### C UU #### [address] Lymphocytes (Bld) [#/Vol] 1.4 10*3/uL Normal 1.00-4.8 [facility] Comment on above: Performed By: #### C UU #### [address] Lymphocytes/100 WBC (Bld) 9.2 % Normal . [facility] Comment on above: Performed By: #### C UU #### [address] MCH (RBC) [Entitic mass] 28.4 pg Normal 27.5-35.2 [facility] Comment on above: Performed By: #### C UU #### [address] MCV (RBC) [Entitic vol] 84.5 fL Normal 83.5-101 [facility] Comment on above: Performed By: #### C UU #### [address] Mean Corpuscular HGB Conc 33.6 g/dL Normal 32.5-35.6 [facility] Comment on above: Performed By: #### C UU #### [address] Monocytes (Bld) [#/Vol] 1.0 10*3/uL High 0.0-0.8 [facility] Comment on above: Performed By: #### C UU #### [address] Monocytes/100 WBC (Bld) 6.5 % Normal . [facility] Comment on above: Performed By: #### C UU #### [address] Neutrophils (Bld) [#/Vol] 12.7 10*3/uL High 1.8-7.7 [facility] Comment on above: Performed By: #### C UU #### [address] Neutrophils/100 WBC (Bld) 83.3 % Normal . [facility] Comment on above: Performed By: #### C UU #### [address] NRBC% 0.0 /100{WBC} Normal 0-0.5 [facility] Comment on above: Performed By: #### C UU #### [address] Platelet mean volume (Bld) [Entitic vol] 7.0 fL Normal 6.6-10.1 [facility] Comment on above: Performed By: #### C UU #### [address] Platelets (Bld) [#/Vol] 428 10*3/uL Normal 150-450 [facility] Comment on above: Performed By: #### C UU #### [address] RBC (Bld) [#/Vol] 4.19 10*6/uL Normal 3.90-5.60 [facility] Comment on above: Performed By: #### C UU #### [address] WBC (Bld) [#/Vol] 15.2 10*3/uL High 4.1-10.5 [facility] Comment on above: Performed By: #### C UU #### [address] White Blood Count 15.2 [CFU]/mL High 4.1-10.5 [facility] Comment on above: Performed By: #### C UU #### [address] [facility] echo transthoracicon [facility] echo transthoracic [facility] Main [place] [address] [place] [id number] Echocardiogram Signed Patient: Dyan Harrell MR#: [id number] : 1960 Acct:[id number] Age/Sex: 64 / M ADM Date: 02/26/25 Loc: Room: [address] [place] [address] Type: ADM [place] Attending Dr: Orlando Walton MD Ordering Provider: Orlando Walton MD Date of Service: 02/26/25 [facility] transthoracic: troponin elevation Copies to: MD [...] LV V1 VTI: 16.3 cm Transcribed By: SCRhoda Performed At: 02/27/25 0704 Signed By: Stephon Leon MD 02/27/25 1800 Normal [facility] Provider Orderson 02-27-2025 Provider Orders [id number] Normal [facility] Troponin I High Sensitivityo n 02-27-2025 Troponin I High Sensitivity 523 Off scale high 0-20 [facility] Comment on above: Order Comment: draw at 0250 last trop drawn at 2350 q3hr Result Comment: Crit ical Result : Called to and read back by: JT WILLINGHAM at: 02/27/2025 04:01:21 by:[id number] The Troponin units of report have been changed to meet the Chest Pain Accreditation requirement, element EC5.M1l2. Troponin units are changed from pg/ml to ng/L. Also, the decimal is removed and results are in whole numbers. PERFORMED BY: [place] [address] PATHOLOGIST [employer]AT CUTTER ASTRID HELLER M.D. Performed By: #### C UU #### [address] Troponin I High Sensitivity 693 Off scale high 0-20 [facility] Comment on above: Result Comment: Resu lts called at 0112 on 02/27/25 The Troponin units of report have been changed to meet the Chest Pain Accreditation requirement, element EC5.M1l2. Troponin units are changed from pg/ml to ng/L. Also, the decimal is removed and results are in whole numbers. PERFORMED BY: [place] [address] PATHOLOGIST [employer] CUTTER ASTRID HELLER M.D. Performed By: #### H S TROP #### [address] Troponin I.cardiac [Mass/vol ume] in Serum or Plasma by Detection limit <= 0.01 ng/mLOrdered By: Orlando Walton on 02-27-2025 Troponin I.cardiac DL <= 0.01 ng/mL [Mass/Vol] 523 ng/L Critically high 0-20 [facility] Comment on above: Critical Result : Ca lled to and read back by: JT WILLINGHAM at: 02/27/2025 04:01:21 by:[id number] Troponin units of report have been changed to meet the Chest Pain Accreditation requirement, element EC5.M1l2. Troponin units are changed from pg/ml to ng/L. Also, the decimal is removed and results are in whole numbers. Alanine aminotransferase [En zymatic activity/volume] in Serum or PlasmaOrdered By: Melody Siddiqi on 02-26-2025 ALT [Catalytic activity/Vol] 20 U/L Normal 7-52 [facility] Comment on above: Performed By: #### C UBLD, LACTIC, BNP, CK, HS TROP, PTT, PT, MG, CMP, CBC #### [facility] [address] [place] [address] [place] Albumin [Mass/volume] in Ser um or Plasma by Bromocresol green (BCG) dye binding methoOrdered By: Melody Siddiqi on 02-26-2025 Albumin BCG dye [Mass/Vol] 3.8 g/dL 3.5-5.7 [facility] Alkaline phosphatase [Enzyma tic activity/volume] in Serum or PlasmaOrdered By: Melody Siddiqi on 02-26-2025 ALP [Catalytic activity/Vol] 70 U/L Normal 34-104 [facility] Comment on above: Performed By: #### C UBLD, LACTIC, BNP, CK, HS TROP, PTT, PT, MG, CMP, CBC #### [address] Appearance of UrineOrdered B y: Melody Siddiqi on 02-26-2025 Appearance (U) Turbid Critically abnormal Clear [facility] Comment on above: Order Comment: Name Collection Type:: Clean-Voided Midstream Performed By: #### C UU #### [address] Aspartate aminotransferase [ Enzymatic activity/volume] in Serum or PlasmaOrdered By: Melody Siddiqi on 02-26-2025 AST [Catalytic activity/Vol] 15 U/L Normal 13-39 [facility] Comment on above: Performed By: #### C UBLD, LACTIC, BNP, CK, HS TROP, PTT, PT, MG, CMP, CBC #### [address] BNP ser/plasOrdered By: Justice Siddiqi on 02-26-2025 Natriuretic peptide B (Bld) [Mass/Vol] 31.0 pg/mL Normal 5-100 [facility] Comment on above: Result Comment: PERF ORMED BY: [place] [address] PATHOLOGIST [employer] CUTTER ASTRID HELLER M.D. Performed By: #### C UBLD, LACTIC, BNP, CK, HS TROP, PTT, PT, MG, CMP, CBC #### [facility] [address] Bacteria [Presence] in Urine by AutomatedOrdered By: Melody Siddiqi on 02-26-2025 Bacteria Auto Ql (U) 4+ [HPF] High None Seen [facility] Basophils [#/volume] in Bloo d by Automated countOrdered By: Melody Siddiqi on 02-26-2025 Basophils (Bld) [#/Vol] 0.1 10*3/uL Normal 0.0-0.2 [facility] Comment on above: Result Comment: PERF ORMED BY: [place] [address] PATHOLOGIST [employer] CUTTER ASTRID HELLER M.D. Performed By: #### C UBLD, LACTIC, BNP, CK, HS TROP, PTT, PT, MG, CMP, CBC #### [address] Basophils/100 leukocytes in Blood by Automated countOrdered By: Melody Siddiqi on 02-26-2025 Basophils/100 WBC (Bld) 0.7 % Normal . [facility] Comment on above: Performed By: #### C UBLD, LACTIC, BNP, CK, HS TROP, PTT, PT, MG, CMP, CBC #### [address] Bilirubin Test strip Ql (U)O rdered By: Melody Siddiqi on 02-26-2025 Bilirubin Ql (U) Negative Negative [facility] Bilirubin.total [Mass/volume ] in Serum or PlasmaOrdered By: Melody Siddiqi on 02-26-2025 Bilirubin [Mass/Vol] 0.8 mg/dL Normal 0.3-1.0 [facility] Comment on above: Performed By: #### C UBLD, LACTIC, BNP, CK, HS TROP, PTT, PT, MG, CMP, CBC #### [address] BioFire Not Detectedon 02-26 BioFire Not Detected Not detected Normal Not Detecte [facility] Comment on above: Result Comment: This is a duplicate RP2.1 COVID (PCR) result to be used for statistical tracking purpose only. PERFORMED BY: [place] [address] PATHOLOGIST [employer] CUTTER ASTRID HELLER M.D. Performed By: #### C UBLD, LACTIC, BNP, CK, HS TROP, PTT, PT, MG, CMP, CBC #### [address] Blood Cultureon 02-26-2025 Bacteria identified Cx Nom (Bld) Critical value result called at 0338 on 02/27/25 BioFire BCID Panel results called at 0341 on 02/27/25 Gram stain results called at 034 on 02/27/25 Gram Stain Gram Negative Bacilli [...] culture Not detected Group A (Streptococcus pyogenes) [id number] Not detected Group B Strep (Streptococcus agalactiae) [...] Mol (more content not included)... Normal [facility] Comment on above: Performed By: #### C UU #### [address] Bacteria identified Cx Nom (Bld) BioFire BCID Panel results called at 0344 on 02/27/25 Gram stain results called at 0345 on 02/27/25 Gram Stain Gram Negative Bacilli ORGANISM: Escherichia coli (O:ESCCOL) Organism Comments For GENNA Refer to Final Report of Blood Culture Collected Date 02/26/25 PERFORMED BY: [place] [address] PATHOLOGIST [employer]AT CUTTER ASTRID HELLER M.D. Normal [facility] Comment on above: Performed By: #### C UU #### [address] COVID-19 Detected/Not Detect edOrdered By: Melody Siddiqi on 02-26-2025 SARS-CoV-2 (COVID-19) RNA MARC+non-probe Ql (Nph) Not detected Not Detecte [facility] Comment on above: This is a duplicate RP2.1 COVID (PCR) result to be used for statistical tracking purpose only. CT abdomen pelvis w conon CT abdomen pelvis w con [facility] Main [place] [address] [place] [address] CT Scan Report Signed Patient: Dyan Harrell MR#: [id number] [id number] : 1960 Acct:[id number] Age/Sex: 64 / M ADM Date: 02/26/25 Loc: ER Room: Type: [facility] ER Attending Dr: Copies to: Melody [...] Harper M.D. 02/26/2025 5:38 PM Dictation Location: [place] [address] Transcribed By: [facility] 02/26/25 1738 Dictated By: Herman Harper DO 02/26/25 1734 Signed By: 02/26/[id number] Normal [facility] Calcium [Mass/volume] in Ser um or PlasmaOrdered By: Melody Siddiqi on 02-26-2025 Calcium [Mass/Vol] 10.1 mg/dL Normal 8.6-10.3 [facility] Comment on above: Performed By: #### C UBLD, LACTIC, BNP, CK, HS TROP, PTT, PT, MG, CMP, CBC #### [facility] [address] Capillary blood glucose hermelinda urement by glucometer (mass/volume)Ordered By: Orlando Walton on 02-26-2025 Glucose [Mass/Vol] 170 mg/dL Normal [facility] Comment on above: Random Glucose Refer ence Range is dependent on time and content of last meal. Glucose of more than 200 mg/dL in a nonstressed, ambulatory subject supports the diagnosis of Diabetes Mellitus. Result Comment: [place] Glucose Reference Range is dependent on time and content of last meal. Glucose of more than 200 mg/dL in a nonstressed, ambulatory subject supports the diagnosis of Diabetes Mellitus. PERFORMED BY: [address] [place] [address] PATHOLOGIST COAT CUTTER ASTRID HELLER M.D. Performed By: #### C UU #### [address] Carbon dioxide, total [Moles /volume] in Serum or PlasmaOrdered By: Melody Siddiqi on 02-26-2025 CO2 [Moles/Vol] 25.3 mmol/L Normal 21.0-31.0 [facility] Comment on above: Performed By: #### C UBLD, LACTIC, BNP, CK, HS TROP, PTT, PT, MG, CMP, CBC #### [facility] [address] [place] [address] [place] Chloride [Moles/volume] in S kristian or PlasmaOrdered By: Melody Siddiqi on 02-26-2025 Chloride [Moles/Vol] 101 mmol/L Normal 98-107 [facility] Comment on above: Performed By: #### C UBLD, LACTIC, BNP, CK, HS TROP, PTT, PT, MG, CMP, CBC #### [facility] [address] [place] [id number] [facility] Coding Summaryon 02-26-2025 Coding Summary HTMLBase 64 ZsssghivSQk2ySv+PGhlYWQ+PE 5ZQHZeL85lvCXypF4iW4ZYHItH EdvyQUQWKClMWjQezyQcFY5rdK NjZXJu IC8+ON5vCCDeEewjaGLtb2Q9aA S7Y02lqp1sUCecbVS5HICvXyDu fazke5ceuDb6AXlpQzxpPnGd RVLpmB69HYD1jV81Wz42jYRxaS Upq7hasWu6KtKqBYSgUDF0lQws ABste7JcWYQxY69xqTLpz0J2 MGVelCivyJBdOcJgtTA4sG2bCM xyxiwzz1tcmyiyIrw8ya31hTFd n0F7cOA5M8VsmuO0FHSfqUEy UqpwyTLCsM2dxodkv3cvuthgLt NcIMBuLTl8PQl5DAGvjUmvOqFj LH78PVZ1UOMuynRcM3RfHEIu bEybVvW9p9E8Ew6QK5JJMgjvZ5 VNTUFSWTwvdGQ+XO66yg75Y1Eb UcnbXla0NNRsAWP7kVM8mS1k FLNxRYbkb6S4nQZ8W7DyyaAfxc 3li3wrAJCzPJojC04gwXPqw5A4 OELgyBG0DQYorEmoCzYqgS50 Oyc+CRUxlFgpa3CzYhwqn2hfe2 qpiIx0BqxfKFBtbwIpyOzsXBT6 d7ZwHd3cFPZzvRW5hTE1cG5m KnPxTgD0ESffR986XaXgyWVuVt luW30fQ3RjeVO+KMOuYrg9ILYw iJtyPD1sK4KcALOoxhnmjVAf hQxyQG6fYORwuzxyAAAhhH0vFL NbD8k8YnRaIqT2AEqqV0WaDJRs qenqTv56qP3bHxCjWnY0WJsk M3LoprZ1TPUzgQQrDWnuLFR9X9 4rk5L4KUDhNEUbDJF2iFG0dQ9q bGlnbjogbGVmdDsgdmVydGlj UTvkJAkbP354SQLwjBozVxJnCF luZyBEYXRlOiAgMDgvMjEvMjAy NTwvdGQ+QPSxRZC6vFijIAYb lCIzBOuzUx0orDuneEksVV6iAU QeanebLUHghH0vQBRyxCVuwFmt FP0zJCUoshxei556NdHhHVU3 MDHldXLhE7YuiN1jFqWrLQQvRL UlJ7RkyCAwGPmmJ167ASpxLcR9 HETiomSxG2AtJIQybUfqHgA0 f0N7Lw6Ah0JicbgbH5FuuMXwDd XnCxkxBGc7P5TwXpgegMI+PC90 ERQaSI68GNw7CTM7vMkoHRye DMDtQ1CrgC8uLhCmTZBiUOTvPs c+PHRhYmxlIHdpZHRoPScxMDAl EuKfqMjfYE1vXp6pXEQoYJCq lAcxdMXuTeRel7juHHXeBZsfOJ 6lkYzxY4PzhDS0UTYql2b3Ow53 J80jI5MdpQJ+BDMyiQX0xJG3 pS5xEbEvScR6EDahD689LqAkiB UyFduxi5vwh0wvdPq9HjH8YRDd spRvyLgwKID8l5SpQq98G53z IHdpZHRoPSIxNSUiIHZhbGlnbj 5meH7mRg2+SLNzjPN6sAM0uA7r MqJwPxX3FZshN646XlNzgCTx Ncngq3zjy7rfcBs7PnBkNEFowm IlnFmqMFR0i7GoIv11H0JzkCzc v1DlHjx5hq08aJSps8X2sBB1 O1EnODDcuwfnxGTiaMerRL5cPV RfzbjuKKActD1sKWCrQ3v9HgRs GlE0GRggL5ArthI6HELfoAEv QFSgqCLUeE5zjxokz2bwbdfrHt EzAWVvKEn2ZOg1DQMyrMjlWuGr SQJ9ZbV4HAW3kGVmnS6jiJjk zmwtwR0bAzb+EUD3vOGpeMENLJ 1lOjwvdGQ+ZHQfQBT3iAzoEWyp IGFmiS7eEBLbS6s8ScGyRjH6 FOhiQ1TmowM8ADCaeWIqUORpwY KIpA3rhuclg0sgwokpHxFcCWJr IDe5ZSg4CTEegUlbVqOxADO1 QqB6FJA2cMKzeD6taOzunvuhuX 9wOyc+BhknsNjjRER9XPs8V1Vu Rxq1YVYxyJucYP4esMOqWAgr If1mdDaqdPfkRM1mZRJkorhxi9 83CtOji9tdNWUszFOmKOqmJCT2 C40tu5P5AGKkAWJxQUY9jFO3 qW9sgMjxmsqjfPKgbEvmozSpsG leENuaCRkqB600WHHjdXvyGuIe XIh5L4MtFja3NVVxzBraOW7t bZKqOSjtQb4uyHsydAnvYI1pCG Kynyhei802CnXnr8mkSIPstMUy TOjqRCV9Y24al9N4RNEtOMYj GWQ2qJK6iF2xuPzjgqwkkWOeoY bdzhEjqQicFGcgYCtmB779XFKv rBuyVeKyxIo3D5AlYdk8LPBg xCkfHN2wgZCrOJhrUs4psNxrvW sfKP2nFEXqlpyoh081BxDfd6gx BMExkIOyDQjnIEF1D21ld4P6 XMVfWUQyNRK6oRY4hA5usCfsjw ogbGVmdDsgdmVydGljYWwtYWxp L957UUVsvTjiQgKtvCcnqwEt FYxoZAe5T8VxHfykiMA+PC90YW RsFW79uTWtnUDom8derCy3WjZp FQUcBBM2oRbrXOecu9LeHRCn V61pzOGqw6U0XEZwwDrqfHQqJd HkbDY9rQ2aOWjzndqll8gcviil Occlv8bgmw38xE90O45rMIgm MODiBEPcQIKsPHWllSdogu4mbS 9wIi8+QEAjuWE7pNQ7bG0iTHLi CqI1DUjiF951MlHqaPMdUgur y1tfv0zbfAm1EgU5VKDxlgDlwL wkYGL2q7IfJa52N62dLMkqNKQc WOZrTCEyXHKbtGbbgd5sfW2g Ii8+UODdoXK5lOC9lR7mUlGvNw B0ZXbtO257WpTxsAWeMzbfH28g N5VzgQM+TOAbKxk4AEPkxTdh QU2etQTqCFuaOt9qGLF7QeWeWm WxSQgcQ5SbZTPmrmegdmygjCT9 HRLdCYBipH64Cj6bfFggPFEb mMVMuV1gcwqky1ztuljwDlRjYS QoTZk2LFn1RLValVylYvFgPXW5 OfC0XCW3vKWsqE7uhMblqkam cY6rA0AnOJHyizlyKi17xS3hLu AzIrA9XHqyDnx+A8rMZOpQVPZM SUNIQUVMIFJBWTwvdGQ+PHRk ZFY8dLalEBjaBDYlpY4nDTWgW4 s4JtFhPiG3IWfjN7HrFMNgahua Cl81hK4rZhDrUjT4AJasA3Dd idE4BELcsQXjJGgkBZX6L31da1 N6AKNaCSGsMXR8cFT4oZ1ztRrk bjogbGVmdDsgdmVydGljYWwt OUyfF967XNAurWfmGyS8BjFnXi P6TGu6K3QfBkn5BCKenArzGE7n dOHjFKbeUo0mrXpnlSecQQ5h WVJakhlbGFFvgX9eZQCwaARabT fnRT2pKWOclwvom625AsKyPTR5 SHJixJQkK9MpyG8gHfKoLZDk HDTgU0QsoYWwCOsiH630HRzfOl N5QPErwvUeQ1KnYVOxaMpxXuT1 k8W6Po18DuGOWOAvpdymfFR+ XQEtMHW6pNjpVWspOSCqwM0jIM AfQ5c4SeAvWyA4PEheB6UvDEMw gmzbWg54nI5iDkOzIhW8RSwz Z2FbakN1FEKdyLYiUTmhMJZ7L8 3xn8A2NKGfODRkKVL4qZW7xU3u bGlnbjogbGVmdDsgdmVydGlj WVozZImwI395QWAehEzaAh5HBP P4C3UeXvj0BOEljPsaOD4rwTPt LBboIq4roFowgVavUS0hWWKr sofgEVDfoO4nNTUoiRKiuOfyGV 4qGEYglcauh362SfPmNBP2DVDn bJTfB9BoyO7rPiVnEUJhPASm U5PgwPYsHDksE167VVunNjW3GH GxdmFfU7KwRZMbrJenKjC4u8U3 Nk3DPVmgrPD+HE75rk95B4In GvikOus9WJTiJWW0rKC5pC2zGW IuPAkly0J0tKI0G0KeplTwrl1e h7xpWDAkYCzgA46lbUBdx4X0 YTUahCE7PJSpuIzkLrBzkV51Kp c+AXWkdFjan1WaDkbwz0lyu2yv fQq1NuGzKAVynxAxuPlxUDY4 y9ScUh29J94fOKxuTAYeVUYuYH OcDNUdkMcppn2ebY9cRc4+PGNv cVU5tOQ5aA2kPcWyJxA0NJvz P412BdKbgNPzZjqiy3lnu7dsnE g3KkHpYECgdyLdbTveEVJ9x7Jv Mp78G6InxMhge6MiEiq9el95 iDRbj0C9pWM0O8XhGOHyadikjK OvbNpfCF9kTYJjmriaDIFiuQ9t UWFeD0c1EeAdLcA9JTwsO0Iy ujW4LXBcnBAfNOSwlLBHuU1jgr mzc3wpivwnCwJqDARnCGi7OXg4 JTRoaXjgSmAkHBJ0DvW6APS0 nDGnwF4jbGgwniendU9cGrb+UG y3v3igqPFpQI9qyTT1RN45HY80 nGIpc0U8bEG0G4YjMWMrnxdf wykvqFT2XWCyJSCfhP96Nz4ydG nnLc4oAGPwBEP4VIXdbDTxR5Xi tQ5xXgKkAVXjUTOqY3EzdQWn YLsnP379LKadMgI3SKKhoxHyT4 TeYVZfjXplElU8z2D5Xc5YBC42 QJ11YN43nZIat8X5cOZ4B7Kj WDMejqpmpzvgrSP9JMZhKONjuI 22Sz2miUxjUd0dKUTfVBN2BQVy kDUzG3QiyX2sOnNyQHXvPLKu S9IseEWqIJcyJ704JNqqPxB4FL TbarFgQ4WyFDIlwRwpDeB6n5X0 Ek4OMw21EB54WG80oMPab6M8 xYJ7S8IlWNQbfsyudymguGA0XB TqUALvqK16Vn3roHpuJg4qKWYn SGQ4PEFtzFRdP4AekM1oQnXo QZQjECIiL2MdtPBfPVdxR216ZU pbVdB6VAOyopQkI3CkOFSkgFkb KwA4s5M1Yx8TITzpjxl2N2Tk PjwvdHI+IM34EDTyZJ15vQGpyH Jbt6wnuZs3WnTjKVWuVGI7kKbl OBsqd1TsIOJfZ02cnEDgx9O0 IGN (more content not included)... Normal [facility] Color of Urine by AutoOrdere d By: Melody Siddiqi on 02-26-2025 Color (U) Light-orange Critically abnormal Yellow [facility] Comment on above: Order Comment: Name Collection Type:: Clean-Voided Midstream Performed By: #### C UU #### [address] Complete Blood Count Auto Di ffon 02-26-2025 Mean Corpuscular HGB Conc 33.8 g/dL Normal 32.5-35.6 [facility] Comment on above: Performed By: #### C UBLD, LACTIC, BNP, CK, HS TROP, PTT, PT, MG, CMP, CBC #### [address] Monocytes/100 WBC (Bld) 26.96 % High 0.00-20.00 [facility] Comment on above: Result Comment: For adults in ED, MDW > 20.0 may be associated with a higher risk of sepsis during the first 12 hrs of hospital admission Performed By: #### C UBLD, LACTIC, BNP, CK, HS TROP, PTT, PT, MG, CMP, CBC #### [facility] [address] [place] [address] [place] NRBC% 0.0 /100{WBC} Normal 0-0.5 [facility] Comment on above: Performed By: #### C UBLD, LACTIC, BNP, CK, HS TROP, PTT, PT, MG, CMP, CBC #### [address] White Blood Count 17.8 [CFU]/mL High 4.1-10.5 [facility] Comment on above: Performed By: #### C UBLD, LACTIC, BNP, CK, HS TROP, PTT, PT, MG, CMP, CBC #### [address] Comprehensive Metabolic Pane edilson 02-26-2025 Albumin [Mass/Vol] 3.8 g/dL Normal 3.5-5.7 [facility] Comment on above: Performed By: #### C UBLD, LACTIC, BNP, CK, HS TROP, PTT, PT, MG, CMP, CBC #### [address] Creatinine Clr Calc Pharmacy 78.19 Normal [facility] Comment on above: Performed By: #### C UBLD, LACTIC, BNP, CK, HS TROP, PTT, PT, MG, CMP, CBC #### [address] GFR/1.73 sq M.predicted MDRD (S/P/Bld) [Vol rate/Area] mL/min/{1.73_m2} Normal [facility] Comment on above: Performed By: #### C UBLD, LACTIC, BNP, CK, HS TROP, PTT, PT, MG, CMP, CBC #### [address] Creatine kinase [Enzymatic a ctivity/volume] in Serum or PlasmaOrdered By: Melody Siddiqi on 02-26-2025 CK [Catalytic activity/Vol] 17 U/L Low 30-223 [facility] Comment on above: Performed By: #### C UU #### [address] Creatinine [Mass/volume] in Serum or PlasmaOrdered By: Melody Siddiqi on 02-26-2025 Creatinine [Mass/Vol] 1.02 mg/dL Normal 0.70-1.30 [facility] Comment on above: Performed By: #### C UBLD, LACTIC, BNP, CK, HS TROP, PTT, PT, MG, CMP, CBC #### [address] [address] [place] Dipstick and Microscopicon 0 02-26-2025 Bacteria,Urine 4+ [HPF] Normal None Seen [facility] Comment on above: Order Comment: Name Collection Type:: Clean-Voided Midstream Performed By: #### C UU #### [address] Bilirubin,Urine Negative Normal Negative [facility] Comment on above: Order Comment: Name Collection Type:: Clean-Voided Midstream Performed By: #### C UU #### [address] Glucose Ql (U) >= Normal Normal [facility] Comment on above: Order Comment: Name Collection Type:: Clean-Voided Midstream Performed By: #### C UU #### [address] Hyaline Casts,Urine None Normal 0-8 [facility] Comment on above: Order Comment: Name Collection Type:: Clean-Voided Midstream Performed By: #### C UU #### [address] Mucus,Urine 2+ [LPF] Critically abnormal [facility] Comment on above: Order Comment: Name Collection Type:: Clean-Voided Midstream Result Comment: PERF ORMED BY: [place] [address] PATHOLOGIST COAT CUTTER ASTRID HELLER M.D. Performed By: #### C UU #### [place] [address] [place] Nitrite,Urine Negative Normal Negative [facility] Comment on above: Order Comment: Name Collection Type:: Clean-Voided Midstream Performed By: #### C UU #### [address] Occult Blood,Urine 3+ Normal Negative [facility] Comment on above: Order Comment: Name Collection Type:: Clean-Voided Midstream Result Comment: PERF ORMED BY: [place] [address] PATHOLOGIST COAT CUTTER ASTRID HELLER M.D. Performed By: #### C UU #### [address] RBC,Urine Innumerable Normal 0-4 [facility] Comment on above: Order Comment: Name Collection Type:: Clean-Voided Midstream Performed By: #### C UU #### [address] Specificy [place],Urine 1.014 Normal 1.001-1.03 0 [facility] Comment on above: Order Comment: Name Collection Type:: Clean-Voided Midstream Performed By: #### C UU #### [address] Urobilinogen,Urine Normal Normal Normal [facility] Comment on above: Order Comment: Name Collection Type:: Clean-Voided Midstream Performed By: #### C UU #### [address] WBC CLUMP, Urine Many Normal None Seen [facility] Comment on above: Order Comment: Name Collection Type:: Clean-Voided Midstream Performed By: #### C UU #### [address] WBC,Urine Innumerable Normal 0-4 [facility] Comment on above: Order Comment: Name Collection Type:: Clean-Voided Midstream Performed By: #### C UU #### [address] ECG 12 lead ECGon 02-26-2025 ECG 12 lead ECG [facility] [place] [address] Electrocardiograph Report Signed Patient: Dyan Harrell MR#: [id number] : 1960 Acct:[id number] Age/Sex: 64 / M ADM Date: 02/26/25 Loc: Room: [address] [place] [address] Type: ADM IN Attending Dr: Orlando Walton [...] increased by 53 bpm Confirmed by STEPHON LEON MD ([id number]) on 02/27/2025 4:52:38 PM Referred By: Electronically Signed By: STEPHON LEON MD Transcribed By: MUS Signed By Stephon Leon MD 0 02/27/25 1652 Normal [facility] Eosinophils [#/volume] in Bl ood by Automated countOrdered By: Melody Siddiqi on 02-26-2025 Eosinophils (Bld) [#/Vol] 0.2 10*3/uL Normal 0.0-0.45 [facility] Comment on above: Performed By: #### C UBLD, LACTIC, BNP, CK, HS TROP, PTT, PT, MG, CMP, CBC #### [facility] [address] [place] [address] [place] Eosinophils/100 leukocytes i n Blood by Automated countOrdered By: Melody Siddiqi on 02-26-2025 Eosinophils/100 WBC (Bld) 1.0 % Normal . [facility] Comment on above: Performed By: #### C UBLD, LACTIC, BNP, CK, HS TROP, PTT, PT, MG, CMP, CBC #### [facility] [address] [place] [id number] [place] Epithelial cells.squamous [# /area] in Urine sediment by Automated countOrdered By: Melody Siddiqi on 02-26-2025 Epithelial cells.squamous Auto (Urine sed) [#/Area] N/A [facility] Erythrocyte distribution wid th [Ratio] by Automated countOrdered By: Melody Siddiqi on 02-26-2025 Erythrocyte distribution width (RBC) [Ratio] 13.8 % Normal 12.0-14.8 [facility] Comment on above: Performed By: #### C UBLD, LACTIC, BNP, CK, HS TROP, PTT, PT, MG, CMP, CBC #### [facility] [address] Erythrocytes [#/area] in Uri ne sediment by Automated countOrdered By: Melody Siddiqi on 02-26-2025 RBC Auto (Urine sed) [#/Area] Innumerable [HPF] High 0-4 [facility] Erythrocytes [#/volume] in B lood by Automated countOrdered By: Melody Siddiqi on 02-26-2025 RBC (Bld) [#/Vol] 4.71 10*6/uL Normal 3.90-5.60 [facility] Comment on above: Performed By: #### C UBLD, LACTIC, BNP, CK, HS TROP, PTT, PT, MG, CMP, CBC #### [facility] [address] Glomerular filtration rate [ Volume Rate/Area] in Serum, Plasma or Blood by CreatinineOrdered By: Melody Siddiqi on 02-26-2025 Glomerular filtration rate [Volume Rate/Area] in Serum, Plasma or Blood by Creatinine > 60.0 mL/Min [facility] Glucose [Mass/volume] in Ser um or PlasmaOrdered By: Melody Siddiqi on 02-26-2025 Glucose [Mass/Vol] 154 mg/dL High 70-100 [facility] Comment on above: ADA recommended refe rence rangeRandom Glucose Reference Range is dependent on time and content of last meal. Glucose of more than 200 mg/dL in a nonstressed, ambulatory subject supports the diagnosis of Diabetes Mellitus. Result Comment: [place] Glucose Reference Range is dependent on time and content of last meal. Glucose of more than 200 mg/dL in a nonstressed, ambulatory subject supports the diagnosis of Diabetes Mellitus. ADA recommended reference range Performed By: #### C UBLD, LACTIC, BNP, CK, HS TROP, PTT, PT, MG, CMP, CBC #### [facility] [address] Glucose [Mass/volume] in Uri ne by Test stripOrdered By: Melody Siddiqi on 02-26-2025 Glucose Test strip (U) [Mass/Vol] >=1000 mg/dL High Normal [facility] Hematocrit [Volume Fraction] of Blood by Automated countOrdered By: Melody Siddiqi on 02-26-2025 Hematocrit (Bld) [Volume fraction] 39.7 % Normal 38.8-50.0 [facility] Comment on above: Performed By: #### C UBLD, LACTIC, BNP, CK, HS TROP, PTT, PT, MG, CMP, CBC #### [facility] [address] Hemoglobin Test strip Ql (U) Ordered By: Melody Siddiqi on 02-26-2025 Hemoglobin Ql (U) 3+ High Negative [facility] Hemoglobin [Mass/volume] in BloodOrdered By: Melody Siddiqi on 02-26-2025 Hemoglobin (Bld) [Mass/Vol] 13.4 g/dL Normal 13.0-17.0 [facility] Comment on above: Performed By: #### C UBLD, LACTIC, BNP, CK, HS TROP, PTT, PT, MG, CMP, CBC #### [facility] [address] Hyaline casts [#/area] in Ur ine sediment by Automated countOrdered By: Melody Siddiqi on 02-26-2025 Hyaline casts Auto (Urine sed) [#/Area] None [LPF] 0-8 [facility] INR in Platelet poor plasma by Coagulation assayOrdered By: Melody Siddiqi on 02-26-2025 INR Coag (PPP) [Relative time] 1.1 {INR} Normal [facility] Comment on above: INR Therapeutic Rang e [...] TROP, PTT, PT, MG, CMP, CBC #### [address] Ketones [Presence] in Urine by Test stripOrdered By: Melody Siddiqi on 02-26-2025 Ketones Ql (U) Negative Normal Negative [facility] Comment on above: Order Comment: Name Collection Type:: Clean-Voided Midstream Performed By: #### C UU #### [address] Lactate [Moles/volume] in Se rum or PlasmaOrdered By: Melody Siddiqi on 02-26-2025 Lactate [Moles/Vol] 1.1 mmol/L 0.5-1.9 [facility] Comment on above: Lactic Acid referenc e range has been updated to 0.5 1.9 mmol/L and the critical range of 2.0 or greater. Lactic Acidon 02-26-2025 Lactate [Moles/Vol] 4.2 mmol/L Off scale high 0.5-1.9 [facility] Comment on above: Result Comment: Crit ical Result : Called to and read back by: FELICIANO DE at: 02/26/2025 16:44:18 by:[id number] Lactic Acid reference range has been updated to 0.5 ? 1.9 mmol/L and the critical range of 2.0 or greater. PERFORMED BY: [place] [address] PATHOLOGIST COAT CUTTER ASTRID HELLER M.D. Performed By: #### C UBLD, LACTIC, BNP, CK, HS TROP, PTT, PT, MG, CMP, CBC #### [address] Lactic Acid Reflexon 025 Lactic Acid Reflex 1.1 mmol/L Normal 0.5-1.9 [facility] Comment on above: Result Comment: Lact ic Acid reference range has been updated to 0.5 ? 1.9 mmol/L and the critical range of 2.0 or greater. PERFORMED BY: [place] [address] PATHOLOGIST COAT CUTTER ASTRID HELLER M.D. Performed By: #### C UU #### [address] Leukocyte clumps [Presence] in Urine by AutomatedOrdered By: Melody Siddiqi on 02-26-2025 Leukocyte clumps Auto Ql (U) Many [LPF] High None Seen [facility] Leukocyte esterase [Presence ] in Urine by Test stripOrdered By: Melody Siddiqi on 02-26-2025 Leukocyte esterase Test strip Ql (U) 4+ Normal Negative [facility] Comment on above: Order Comment: Name Collection Type:: Clean-Voided Midstream Performed By: #### C UU #### [address] Leukocytes [#/area] in Urine sediment by Automated countOrdered By: Melody Siddiqi on 02-26-2025 WBC Auto (Urine sed) [#/Area] Innumerable [HPF] High 0-4 [facility] Leukocytes [#/volume] correc rosetta for nucleated erythrocytes in Blood by Automated counOrdered By: Melody Siddiqi on 02-26-2025 WBC corrected for nucl RBC Auto (Bld) [#/Vol] 17.8 10*3/uL High 4.1-10.5 [facility] Leukocytes [#/volume] in Blo od by Automated countOrdered By: Melody Siddiqi on 02-26-2025 WBC (Bld) [#/Vol] 17.8 10*3/uL High 4.1-10.5 [facility] Comment on above: Performed By: #### C UBLD, LACTIC, BNP, CK, HS TROP, PTT, PT, MG, CMP, CBC #### [address] Lymphocytes [#/volume] in Bl ood by Automated countOrdered By: Melody Siddiqi on 02-26-2025 Lymphocytes (Bld) [#/Vol] 0.9 10*3/uL Low 1.00-4.8 [facility] Comment on above: Performed By: #### C UBLD, LACTIC, BNP, CK, HS TROP, PTT, PT, MG, CMP, CBC #### [address] Lymphocytes/100 leukocytes i n Blood by Automated countOrdered By: Melody Siddiqi on 02-26-2025 Lymphocytes/100 WBC (Bld) 5.3 % Normal . [facility] Comment on above: Performed By: #### C UBLD, LACTIC, BNP, CK, HS TROP, PTT, PT, MG, CMP, CBC #### [address] MCH [Entitic mass] by Automa rosetta countOrdered By: Melody Siddiqi on 02-26-2025 MCH (RBC) [Entitic mass] 28.5 pg Normal 27.5-35.2 [facility] Comment on above: Performed By: #### C UBLD, LACTIC, BNP, CK, HS TROP, PTT, PT, MG, CMP, CBC #### [address] MCHC Auto (RBC) [Mass/Vol]Or dered By: Melody Siddiqi on 02-26-2025 MCHC (RBC) [Mass/Vol] 33.8 g/dL 32.5-35.6 [facility] MCV [Entitic volume] by Auto mated countOrdered By: Melody Siddiqi on 02-26-2025 MCV (RBC) [Entitic vol] 84.3 fL Normal 83.5-101 [facility] Comment on above: Performed By: #### C UBLD, LACTIC, BNP, CK, HS TROP, PTT, PT, MG, CMP, CBC #### [address] Magnesium [Mass/volume] in S kristian or PlasmaOrdered By: Melody Siddiqi on 02-26-2025 Magnesium [Mass/Vol] 1.6 mg/dL Low 1.9-2.7 [facility] Comment on above: Result Comment: PERF ORMED BY: [place] [address] PATHOLOGIST [employer]TER ASTRID HELLER M.D. Performed By: #### C UBLD, LACTIC, BNP, CK, HS TROP, PTT, PT, MG, CMP, CBC #### [facility] [address] Monocyte distribution width [Entitic volume] in Blood by AutomatedOrdered By: Melody Siddiqi on 02-26-2025 Monocyte distribution width Auto (Bld) [Entitic vol] 26.96 % High 0.00-20.00 [facility] Comment on above: For adults in ED, MD W > 20.0 may be associated with a higher risk of sepsis during the first 12 hrs of hospital admission Monocytes [#/volume] in Bloo d by Automated countOrdered By: Melody Siddiqi on 02-26-2025 Monocytes (Bld) [#/Vol] 0.3 10*3/uL Normal 0.0-0.8 [facility] Comment on above: Performed By: #### C UBLD, LACTIC, BNP, CK, HS TROP, PTT, PT, MG, CMP, CBC #### [facility] [address] [place] [address] [place] Monocytes/100 leukocytes in Blood by Automated countOrdered By: Melody Siddiqi on 02-26-2025 Monocytes/100 WBC (Bld) 1.4 % Normal . [facility] Comment on above: Performed By: #### C UBLD, LACTIC, BNP, CK, HS TROP, PTT, PT, MG, CMP, CBC #### [facility] [address] [place] [address] Mucus [Presence] in Urine by AutomatedOrdered By: Melody Siddiqi on 02-26-2025 Mucus Auto Ql (U) 2+ [LPF] Abnormal [facility] Neutrophils [#/volume] in Bl ood by Automated countOrdered By: Melody Siddiqi on 02-26-2025 Neutrophils (Bld) [#/Vol] 16.3 10*3/uL High 1.8-7.7 [facility] Comment on above: Performed By: #### C UBLD, LACTIC, BNP, CK, HS TROP, PTT, PT, MG, CMP, CBC #### [facility] [address] [place] [address] [place] Neutrophils/100 leukocytes i n Blood by Automated countOrdered By: Melody Siddiqi on 02-26-2025 Neutrophils/100 WBC (Bld) 91.6 % Normal . [facility] Comment on above: Performed By: #### C UBLD, LACTIC, BNP, CK, HS TROP, PTT, PT, MG, CMP, CBC #### [facility] [address] Nitrite Test strip Ql (U)Ord ered By: Melody Siddiqi on 02-26-2025 Nitrite Ql (U) Negative Negative [facility] No Panel InformationOrdered By: Melody Siddiqi on 02-26-2025 Bacterial ID (NA Multiplex Assay) [facility] Creatinine Clearance (Chem 78.19 [facility] Nucleated erythrocytes [Pres ence] in Blood by Automated countOrdered By: Melody Siddiqi on 02-26-2025 Nucleated RBC Auto Ql (Bld) 0.0 /100{WBC} 0-0.5 [facility] Partial Thromboplastin Timeo n 02-26-2025 aPTT Coag (Bld) [Time] 25.3 s Normal 25.1-36.5 [facility] Comment on above: Result Comment: A he matocrit value greater than 55% may lead to inaccurate results in coagulation testing. Patients having hematocrit values >55% require a special collection tube for coagulation studies. Please contact the laboratory at [phone] for redraw instructions. PERFORMED BY: [address] [place] [address] PATHOLOGIST COAT CUTTER ASTRID HELLER M.D. Performed By: #### C UBLD, LACTIC, BNP, CK, HS TROP, PTT, PT, MG, CMP, CBC #### [facility] [address] [place] [address] [place] Platelet mean volume [Entiti c volume] in Blood by Automated countOrdered By: Melody Siddiqi on 02-26-2025 Platelet mean volume (Bld) [Entitic vol] 7.2 fL Normal 6.6-10.1 [facility] Comment on above: Performed By: #### C UBLD, LACTIC, BNP, CK, HS TROP, PTT, PT, MG, CMP, CBC #### [facility] [address] [place] [address] [place] Platelets [#/volume] in Bloo d by Automated countOrdered By: Melody Siddiqi on 02-26-2025 Platelets (Bld) [#/Vol] 486 10*3/uL High 150-450 [facility] Comment on above: Performed By: #### C UBLD, LACTIC, BNP, CK, HS TROP, PTT, PT, MG, CMP, CBC #### [address] Potassium [Moles/volume] in Serum or PlasmaOrdered By: Melody Siddiqi on 02-26-2025 Potassium [Moles/Vol] 3.9 mmol/L Normal 3.5-5.1 [facility] Comment on above: Performed By: #### C UBLD, LACTIC, BNP, CK, HS TROP, PTT, PT, MG, CMP, CBC #### [place] [address] [place] Protein [Mass/volume] in Ser um or PlasmaOrdered By: Melody Siddiqi on 02-26-2025 Protein [Mass/Vol] 7.7 g/dL Normal 6.4-8.9 [facility] Comment on above: Performed By: #### C UBLD, LACTIC, BNP, CK, HS TROP, PTT, PT, MG, CMP, CBC #### [place] [address] [place] Protein [Mass/volume] in Uri ne by Test stripOrdered By: Melody Siddiqi on 02-26-2025 Protein (U) [Mass/Vol] 100 mg/dL Normal Negative [facility] Comment on above: Order Comment: Name Collection Type:: Clean-Voided Midstream Performed By: #### C UU #### [facility] [address] [place] [id number] [facility] Prothrombin time (PT)Ordered By: Melody Siddiqi on 02-26-2025 PT Coag (PPP) [Time] 12.5 s Normal 9.0-12.9 [facility] Comment on above: A hematocrit value g reater than 55% may lead to inaccurate results in coagulation testing. Patients having hematocrit values >55% require a special collection tube for coagulation studies. Please contact the laboratory at [phone] for redraw instructions. Result Comment: A he matocrit value greater than 55% may lead to inaccurate results in coagulation testing. Patients having hematocrit values >55% require a special collection tube for coagulation studies. Please contact the laboratory at [phone] for redraw instructions. Performed By: #### C UBLD, LACTIC, BNP, CK, HS TROP, PTT, PT, MG, CMP, CBC #### [facility] [id number] [facility] Respiratory (Upper) Panel, P CRon 02-26-2025 [...] A H3 Blank Space -- PERFORMED BY: [place] [address] PATHOLOGIST COAT CUTTER ASTRID HELLER M.D. Normal [facility] Comment on above: Performed By: #### C UBLD, LACTIC, BNP, CK, HS TROP, PTT, PT, MG, CMP, CBC #### [address] Respiratory pathogens DNA an d RNA panel - Nasopharynx by MARC with non-probe detectionOrdered By: Melody Siddiqi on 02-26-2025 Respiratory pathogens DNA and RNA panel MARC+non-probe (Nph) [facility] Serum globulin measurement b y calculation (mass/volume)Ordered By: Melody Siddiqi on 02-26-2025 Globulin (S) [Mass/Vol] 3.9 g/dL [facility] Comment on above: Performed By: #### C UBLD, LACTIC, BNP, CK, HS TROP, PTT, PT, MG, CMP, CBC #### [facility] [address] [place] [address] Serum or plasma albumin/glob ulin mass ratioOrdered By: Melody Siddiqi on 02-26-2025 Albumin/Globulin [Mass ratio] 1.0 {ratio} [facility] Comment on above: Performed By: #### C UBLD, LACTIC, BNP, CK, HS TROP, PTT, PT, MG, CMP, CBC #### [facility] [address] [place] [address] Serum or plasma anion gap de terminationOrdered By: Melody Siddiqi on 02-26-2025 Anion gap [Moles/Vol] 14.6 mmol/L Normal 6.0-15.0 [facility] Comment on above: Performed By: #### C UBLD, LACTIC, BNP, CK, HS TROP, PTT, PT, MG, CMP, CBC #### [address] Sodium [Moles/volume] in Ser um or PlasmaOrdered By: Melody Niajay on 02-26-2025 Sodium [Moles/Vol] 137 mmol/L Normal 136-145 [facility] Comment on above: Performed By: #### C UBLD, LACTIC, BNP, CK, HS TROP, PTT, PT, MG, CMP, CBC #### [facility] [address] Specific gravity Test strip (U) [Rel density]Ordered By: Melody Siddiqi on 02-26-2025 Specific gravity (U) [Rel density] 1.014 1.001-1.03 0 [facility] Troponin I High Sensitivityo n 02-26-2025 Troponin I High Sensitivity 773 Off scale high 0-20 [facility] Comment on above: Result Comment: Crit ical Result : Called to and read back by: REGAN FERRELL at: 02/26/2025 21:50:17 by:[id number] The Troponin units of report have been changed to meet the Chest Pain Accreditation requirement, element EC5.M1l2. Troponin units are changed from pg/ml to ng/L. Also, the decimal is removed and results are in whole numbers. PERFORMED BY: [place] [address] PATHOLOGIST COAT CUTTER ASTRID HELLER M.D. Performed By: #### C UBLD, LACTIC, BNP, CK, HS TROP, PTT, PT, MG, CMP, CBC #### [address] Troponin I High Sensitivity 102 Off scale high 0-20 [facility] Comment on above: Result Comment: Crit ical Result : Called to and read back by: GABRIELLA BRIGGS at: 02/26/2025 17:35:34 by:[id number] The Troponin units of report have been changed to meet the Chest Pain Accreditation requirement, element EC5.M1l2. Troponin units are changed from pg/ml to ng/L. Also, the decimal is removed and results are in whole numbers. PERFORMED BY: [place] [address] PATHOLOGIST COAT CUTTER ASTRID HELLER M.D. Performed By: #### C UU #### [address] Troponin I.cardiac [Mass/vol ume] in Serum or Plasma by Detection limit <= 0.01 ng/mLOrdered By: Orlando Walton on 02-26-2025 Troponin I.cardiac DL <= 0.01 ng/mL [Mass/Vol] 773 ng/L Critically high 0-20 [facility] Comment on above: Critical Result : Ca lled to and read back by: REGAN FERRELL at: 02/26/2025 21:50:17 by:[id number] Troponin units of report have been changed to meet the Chest Pain Accreditation requirement, element EC5.M1l2. Troponin units are changed from pg/ml to ng/L. Also, the decimal is removed and results are in whole numbers. Urea nitrogen [Mass/volume] in Serum or PlasmaOrdered By: Melody Siddiqi on 02-26-2025 Urea nitrogen [Mass/Vol] 15 mg/dL Normal 7-25 [facility] Comment on above: Performed By: #### C UBLD, LACTIC, BNP, CK, HS TROP, PTT, PT, MG, CMP, CBC #### [facility] [address] [place] [address] Urine Cultureon 02-26-2025 Bacteria identified Cx Nom (U) ORGANISM: Escherichia coli (ESBL) (O:ESCCOLESBL) [place] Count >100,000 Aerobic GENNA Charge (NMIC56) SUSCEPTIBILITY [...] RESISTANT TO ALL B-LACTAM DRUGS. PERFORMED BY: [place] [address] PATHOLOGIST COAT CUTTER ASTRID HELLER M.D. Normal [facility] Comment on above: Performed By: #### H S TROP #### [address] Urine cultureOrdered By: Jeovanny Siddiqi on 02-26-2025 Bacteria identified Cx Nom (U) Escherichia coli (ESBL) Abnormal [facility] Urobilinogen Test strip (U) [Mass/Vol]Ordered By: Melody Siddiqi on 02-26-2025 Urobilinogen (U) [Mass/Vol] Normal mg/dL Normal [facility] X-ray reportOrdered By: Phil Harper on 02-26-2025 Study report [facility] [place] [address] [place] [address] XRay Report Signed Patient: Dyan Harrell MR#: [id number] : 1960 Acct:[id number] Age/Sex: 64 / M ADM Date: 5 Loc: ER Room: Type: [facility] ER Attending Dr: Copies to: Melody [...] Harper M.D. 02/26/2025 4:52 PM Dictation Location: RADIO-PC-20 Transcribed By: SANTA 02/26/251651 Dictated By: Herman Harper DO 02/26/25 1647 Signed By: 02/26/25 [facility] XR chest 1V portableon 02-26 XR chest 1V portable [facility] [place] [address] XRay Report Signed Patient: Dyan Harrell MR#: [id number] : 1960 Acct:[id number] Age/Sex: 64 / M ADM Date: 02/26/25 Loc: ER Room: Type: [facility] ER Attending Dr: Copies to: Melody [...] Harper M.D. 02/26/2025 4:52 PM Dictation Location: RADIO-PC-20 Transcribed By: SANTA 02/26/251651 Dictated By: Herman Harper DO 02/26/25 1647 Signed By: 02/26/25 1652 Normal [facility] aPTT in Platelet poor plasma by Coagulation assayOrdered By: Melody Siddiqi on 02-26-2025 aPTT Coag (PPP) [Time] 25.3 s 25.1-36.5 [facility] Comment on above: A hematocrit value g reater than 55% may lead to inaccurate results in coagulation testing. Patients having hematocrit values >55% require a special collection tube for coagulation studies. Please contact the laboratory at [phone] for redraw instructions. pH of Urine by Test stripOrd ered By: Melody Siddiqi on 02-26-2025 pH (U) 6.0 [pH] Normal 5.0-9.0 [facility] Comment on above: Order Comment: Name Collection Type:: Clean-Voided Midstream Performed By: #### C UU #### [facility] [address] Consent Formson 02-25-2025 Consent Forms [id number]#1.[facility] Outside Recordson 02-25-2025 Outside Records [id number]#[facility] Tele[facility] Stripson Telemetry Strips [id number]#1.00[facility] Anesthesia Noteon 02-24-2025 Anesthesia Note Patient: GENNA [...] 02/24/2025 8:52 EDT Glucose, POC 144 mg/dL [place] 02/24/2025 7:03 EDT Glucose, POC 185 mg/dL [place] 02/24/2025 6:16 EDT Glucose, POC 184 mg/dL [place] Condition: Stable. Assessment Anesthetic outcome No anesthetic complications noted. Adequate pain relief. No Complaint of nausea and vomiting. Plan Transfer/ Discharge: Patient can be discharged from PACU when criteria met. Condition stable. [Electronically Signed on: 02/24/2025 08:56 EDT] Deniz Tyson DO [Verified on: 02/24/2025 08:56 EDT] Deniz Tyson DO [facility] Anesthesia Note Patient: GENNA HARRELL Age: 64 [...] list: All Problems Diabetes / SNOMED CT 391311217 / Confirmed Kidney stones / SNOMED CT 874339306 / Confirmed, Active Problems (2) Diabetes Kidney stones Histories Family History: [place] - Lung cancer Mother Thyroid cancer Grandparent Sister Procedure history: ESWL of kidney (88038566) on 02/03/2025 at 64 Years. Comments: 02/03/2025 11:46 Nickie Dubon RN bilateral ESWL (extracorporeal shockwave lithotripsy) of ureteric calculus (1368907166). Appendectomy (967566330). Cervical vertebral fusion (16352907). Tonsillectomy (784385655). Cholecystectomy (10190513). Colonoscopy (777910573). Social History Electronic Cigarette/Vaping Assessment Electronic Cigarette [...] 02/24/2025 6:16 EDT Glucose, POC 184 mg/dL [place] 02/17/2025 13:00 EDT Urine Culture Auth (Verified) See Report 02/03/2025 9:58 EDT Glucose, POC 205 mg/dL [place] 02/03/2025 9:22 EDT Glucose, POC 208 mg/dL [place] 01/07/2025 10:56 EDT WBC 6.7 x103/mcL RBC 4.96 x106/mcL Hgb 14.5 gm/dL Hct 41.6 % MCV 84 fL MCH 29 pg MCHC 35 gm/dL RDW 13.4 % Platelet 351 x103/mcL MPV 7.7 fL Auto Neut % 54 % Auto Lymph % 31 % Auto [place] % 9 % Auto Eos % 4.6 % HI Auto Baso % 1.0 % Neut Abs# 3.6 x103/mcL Lymph Abs# 2.1 x103/mcL [place] Abs# 0.6 x103/mcL Eos Abs# 0.3 x103/mcL Baso Abs# 0.1 x103/mcL Sodium Level 135.0 mmol/L LOW Potassium Level 3.4 m (more content not included)... Normal [facility] Inpatient Patient Summaryon 02-24-2025 Inpatient [place] [address] Patient Discharge Instructions Name: DYAN HARRELL : 1960 Patient Address: [address] [place] [address] Primary Care Provider: Name: MAREK SANTIAGO JR. After you are discharged if you find you have any questions, please, call [phone] ext [phone] to speak to a nurse. Discharge Diagnosis: [...] alcohol and/or drug addiction problems; contact the [facility] 29/01 Crisis Hotline -Text 4HOWH dc [phone]. If you received any narcotics, sedation, or [...] business decisions or sign any legal documents [facility] would like to thank you for allowing us to assist you with your healthcare needs. The following includes patient education materials and information regarding your injury/illness. DYAN HARRELL DANTE has been given the following list of follow-up instructions, prescriptions, and patient education materials: Follow-up Instructions With: Address: When: Derik Marrero MD With: Address: When: Derik Marrero MD Medications During the course of your visit, your medication list was updated with the most current information. The details of those changes are reflected below: New Medications [facility]/pharmacy #[id number], [address], [place] [id number], [phone] cephalexin (Keflex 500 mg oral capsule) 1 cap(s) Oral (given by mouth) every 8 hours.. Refills: 0. Medications That Were Updated - Follow Below Instructions [facility]/pharmacy #[id number], [address], [place] [id number], [phone] Updated: traMADol (Ultram 50 mg oral tablet) [...] oral t (more content not included)... [facility] Record [facility] PAC[facility] Record [facility] Physician: Derik Marrero MD Finalized Date/Time: 02/24/25 09:10:36 Pt. Name: JULIO CESARDYAN/Sex: 1960 MALE Med Rec #: [id number] Physician: Derik Marrero MD Financial #: [id number] Pt. Type: D Room/Bed: / Admit/Disch: 02/24/25 05:41:57 - Institution: PACU Case Times MAGR Entry 1 In PACU I 02/24/25 08:33:00 Discharge from PACU 02/24/25 09:10:00 I Last Modified By: Uzma Beasley RN 02/24/25 09:10:35 Finalized By: Uzma Beasley RN Document Signatures Signed By: Uzma Beasley RN 02/24/25 09:10 [facility] MAGR Postoperative Recordon 02-24-2025 MAGR Postoperative Record MAGR Phase II Record Summary Primary Physician: Derik Marrero MD Finalized Date/Time: 02/24/25 10:10:04 Pt. Name: DYAN HARRELL/Sex: 1960 MALE Med Rec #: [id number] Physician: Derik Marrero MD Financial #: [id number] Pt. Type: D Room/Bed: / Admit/Disch: 02/24/25 [...] Signed By: Uzma Beasley RN 02/24/25 10:10 [facility] MAGR Preoperative Recordon 0 02-24-2025 MAGR Preoperative Record MAGR Pre-Op Record Summary Primary Physician: Derik Marrero MD Finalized Date/Time: 02/24/25 08:07:03 Pt. Name: DYAN HARRELL/Sex: 1960 MALE Med Rec #: [id number] Physician: Derik Marrero MD Financial #: [id number] Pt. Type: D Room/Bed: / Admit/Disch: 02/24/25 [...] By: Rianna Lucero RN 02/24/25 08:07 Normal [facility] POCT Glucose Levelon 025 Glucose [Mass/Vol] 144 mg/dL High [address] [place] [address] Comment on above: Result Comment: OPR_ ID=IN_LIST,TGC FLAG = False Performed By: #### 4 [id number] ####[facility] (DEFAULT)[address] [place] [address] Glucose [Mass/Vol] 185 mg/dL High [address] [place] [address] Comment on above: Result Comment: OPR_ ID=IN_LIST,TGC FLAG = False Performed By: #### 4 [id number] #### [facility] (DEFAULT) [address] [place] [address] Glucose [Mass/Vol] 184 mg/dL [address] Comment on above: Result Comment: OPR_ ID=IN_LIST,TGC FLAG = False Performed By: #### 4 [id number] #### [facility] (DEFAULT) [address] [place] [address] Patient Handouton 02-24-2025 Patient Handout [facility] C Urineon 02-19-2025 C Urine No growth at 2 days. [facility] Comment on above: Performed By: #### [id number] ####[facility] (DEFAULT)[address] [place] [address] Progress Note - Nurseon 02-06 Progress Note - Nurse PAT review for amandeep adina 02/24/[address] Tyson, no further orders received. [Electronically Signed on: 02/17/2025 14:30 EDT] Melissa Canas RN [Verified on: 02/17/2025 14:30 EDT] Melissa Canas RN [facility] Outside Recordson 02-16-2025 Outside Records [id number]#[id number] [facility] Urine Cultureon 02-15-2025 Bacteria identified Cx Nom (U) ORGANISM: Escherichia coli (ESBL) (O:ESCCOLESBL) [place] Count <10,000 Organism Comments Pure Growth Aerobic [...] RESISTANT TO ALL B-LACTAM DRUGS. PERFORMED BY: [place] [address] PATHOLOGIST COAT CUTTER ASTRID HELLER M.D. Normal [facility] Comment on above: Performed By: #### C UU #### [address] Urine cultureOrdered By: Se Ferguson on 02-15-2025 Bacteria identified Cx Nom (U) Escherichia coli (ESBL) Abnormal [facility] Urine Cultureon 02-13-2025 Bacteria identified Cx Nom (U) ORGANISM: Escherichia coli (ESBL) (O:ESCCOLESBL) [place] Count 50,000 Aerobic GENNA Charge (NMIC56) SUSCEPTIBILITY [...] RESISTANT TO ALL B-LACTAM DRUGS. PERFORMED BY: [place] [address] PATHOLOGIST COAT CUTTER ASTRID HELLER M.D. Normal [facility] Comment on above: Performed By: #### C UU #### [address] Urine cultureOrdered By: Se Ferguson on 02-13-2025 Bacteria identified Cx Nom (U) Escherichia coli (ESBL) Abnormal [facility] Coding Summaryon 02-09-2025 Coding Summary HTMLBase 64 PaifvmgjBNo5aTu+PGhlYWQ+PE 0MXMChP94uuJRvdH0dE5GTHWkW EzowWSJKUAxDZpGxxdEgSQ4hhU NjZXJu IC8+XV0hMPQiKtivnBFcz9Y7kN A1S63fwe3bQZxvqOB5ABQfBrDe zpayk9jwcYi0GEvdFkclIlHm GXDcmC30XDX2nE61Wi49tPBbrQ Tty8xusTq8FgJnDRUkOIQ3zQei MTols5ZuRDOoQ65ooSFrj8U1 ITUpoFrgsLRkWtVrsXS5gO9oDO sryjwcd3cfyrfhMqv5if09iOHu n3K3eFK5I2QzbnX9BIXqqWGm FdgwmDDHlH9aymspv6iversyWi DsSZErFAk6BUo3XCIezNjpGqAe VZ40FCU6SYMwtnCqL7VwDPWi jLdwSmN8i9D5Pp8QS9NCNzdyL7 VNTUFSWTwvdGQ+RZ05qg17T9Jm SyhiGfn6FVOpUWG2tPJ1sR3g UJPmKEymd2W5wER4O2AotmWlbv 8cr6fdQWBcPLlqV96bgIAgs3X7 ILGrdFF4GVBtjSbjNdRcoU13 Oyc+UPLehTarq5GlFpavq4oyt3 uszHu5DwxdIIKjedFypCobMOE3 t9NsQy2vFLBwbLH2lSU6nJ0t HvIcDzD1WLbhS087LoJgiZSgOw vyK82aA2HyzRU+BPBzDkf7OXBo iLhmSY1pL0LeGWEzohooqQTw fZysPQ1gHQDgtcbuOVPpiD9tVG EcH7d2NyZbNjY1ENzoO5KlREQv ajplTy91uT7kQrOpBsZ9DYdj F4PvgbX9KBSegORvQApwQBN4P6 7jy3V9SGGnUWTvGAN1pJP2xF5d bGlnbjogbGVmdDsgdmVydGlj MAzyZUdcM188UXEzfDpjNaTvPZ luZyBEYXRlOiAgMDgvMDQvMjAy NTwvdGQ+PZNgZWZ9uFokZIQr bJIfEMarPc7tfGajkInoUR3uQC SsdbbbTRRwiF9xXMNjsZUdhDoj CB6aLYOqkwjae534MgNrTXN9 VPZzqAYlB7QpgY4mIcUoPTYqHJ YsG4GsuUGmBKmgZ289ODvdRuI3 JGNnrpCqZ6HuPZAjpAxkBsP9 w5L0Mm0Ih4XhvgyfR7HnsUKdKb AbTtdjDOq3B9VqIszcjER+PC90 XGHuBH56UEb6EJC9xFhxGOsk TQXuP9GwpZ0bOcRfLFYhADIjAk c+PHRhYmxlIHdpZHRoPScxMDAl BoJqqSoqXL8bEp2oHXSqOSBs bZnjhSTyJsWpw0nwYYDbYJcvXD 2arKoxQ8EmuMT4HUPrx7v3Nf52 L33tV5CpcZY+MSLxoMH5uPZ6 nY8eQzLeImV4OVftX959FuIkjC UbMsxqs1sxd1rkiKs8HxQ1UAOs rpNilKvlILK9m6RmWf98K01e IHdpZHRoPSIxNSUiIHZhbGlnbj 0vpU3cWe4+OIVhiAB1jBH9gE5p ZxKbCyO1BCyyJ407RhNumMSk Lmvdn9nsu1wihFw9GpKsWYKfse HwhLhrVNS6u1IkLe05Z3XkiMbb x3SkAvu3zu60zPJvq8B9eUT3 D3XqGCLsnqvalNKszXilGJ3rAN McpxbiQUOuhA1lHRPlH1q4SjFf KqT7WWowU8JsjeZ3JFBrbLOy EAXqxDEWhD3dvwphp2xxndgbLx XzTVXzQWm0FGo6FDGpxYhgEkYl LTU9YtM7AWE6vOPqlX6joIxu kpgyrJ8fUzj+OHS2lMXkcJWBYA 1lOjwvdGQ+DEKiTYQ8zWszUPdb QWAdeZ5iDKAgM2m8FyKaOoZ9 TRskR5MrolC0AFRmpJTmSRAahG MJjF4gzrtqk9jqtumiEzFaQVZl CUm3XMp6QWXahNvcHtXwUAE9 OdJ4SAR8bSThzR2jzPahqamhlC 9wOyc+JhrvxBljSME6ZCz9I3Kv Xsy8DNJaiVbrPN7suYVpCArg Pk9ceZgkbNlsXV7nYMLurhcwc6 09GsKsj5fsOUXlhHXbTAlxXRA7 K23dn7U6OKRqIIAlFQM9qCR4 yP6zoKudksvweHCoeAgkleJlkP vvFSgmAGxtM963OVKyhValVgLo WSz3P5EkMed6GGJehImwKW1g vMSnMSffMv3xpWqmkQiuBQ2tGQ Ynbmeia385WhDfx7diSWUdlNJt QZpoGBP0Q71gb1S6UGBwKEUt GWZ9pAK8nT9syYaleujefTXcrO azxxMhsLvnPSecERcnE195IYJb kRlqYeGtuIl0D5PyZbk7SKVy mZwbXQ2otGTsCUtkZp4zdDjhqM uyUF4qDJUxatbbk283XjNgk5zf RGXhqGCxVXiqELI7D14zr0U4 XLCsOYQeSGV6bPO4kU8sbFyrnw ogbGVmdDsgdmVydGljYWwtYWxp K016VOMtkVenEgXnbDkzjkJj QYocLQc1Z9IfZryiqMP+PC90YW JiRG92tYRidPMal1aweQj0NwBn HNTnOIC0yRftFSvnw5OpCRYz M04zmQBpy0D9GLUujYmepDHrUq TseDF0lJ4wSXjhvuqja0zwvnwu Ecvsb1nfna77uK94Q48kTLuv NYZaNVBhNSUbZPUjeFpsfi2jcE 9wIi8+RBSujKH9yAH0uQ6oCBHu DhY2AHhhW750TsWffPRySqik n4bjs4beoGm2HeX1BVKtqjSthL riBFG9z9EcSv99X06pIBbaDFAe ZDHnSOYlWQZyaJpwcd0usM8o Ii8+GWCvtZM5fDH3zU9hHnEwPg E5VFmpR861MoTfiWFeWowmF16g C2EryNY+LOAyLmc0WTPegMja AG3rkGEyFCbnYk8uJEK7UqDkNb UbIUrjG2JoPREbfcjsiicfoLB5 DHIeAZZjeL10Mu2ckHqiGYQz hKMBmE3mlsfbr7nnnhgdSjKbIO MkIGa1UYn2FDSbrZboUfYjWVQ2 NvY5HVA4jEFthT2krYrbrroe wR2xV8YhOBPeouyoGt41kD3mZl ShTuP3GTxqNmj+T4wVWFzWAJRX SUNIQUVMIFJBWTwvdGQ+PHRk IMX5kRlcSPrtAHUlkK8dEMFvK1 k8DoGcAzX2ZGbiO1BzOODqpajo Xo28bR6oLmAmGnJ9EPbnY4Et nxQ0DTHhbSFeVFonIUK0G63lk4 B6KKVxVNKtTLD3mAA7mI3tfBus bjogbGVmdDsgdmVydGljYWwt KWreR949GNUlpGgsAbY0BvYuLn Q6DSz9A6VhCxq5MQYfjRvuCS8c iSLjIYloFk9yuFkjkXnwJN5t WKIlsjzcJYImwW3fTRWzcZAulC ctJZ9pVFZxonkeh342JxBeGVH0 MPGgrQZsE8EbaD9qHnIwDRFr PRNoK4DisKUtCTfuD127UJsuRi G7EMWkogUwF7MrTNSieFcsImY1 z1V3Ku90GcJLSNArvneqdJG+ SAHzSRP4yShoHAhwBQWlvZ7gSZ QmN3u2WiFiBpZ1SKrhA5EmGHVq nbzpYb19tZ5oAcMyFhF7MPuw U7UtcmO1FLIlsZTbYAugQBR3I9 1zn4S1NDFjFFItLQW1rYK9vN4h bGlnbjogbGVmdDsgdmVydGlj FNynSOphY059TWUjoXjsYi2VWB K9Q9XfKqv9MCNblTpeOP1ybZUc OQybJa2pmMsupWjkDH6vYZMr khprKXUlaK8oTPCbjFGbgEkeQP 6uPBOfjorpa953PuJySNO8EJEo xKYvX3WfeA5lRzPaLSQzDUMf T3KfgUSdKGkbQ455OFhjIbL0HD MjxwRzE6McDYSqrGhzIuM9z8G4 Dg9LYTvcH2YbP1RthBowiRB+ CP10rj06I8GoHbdjLft2VZEiFK E6vAR8hL6kATUsSItmx9K2mDF1 D1FwbyEesv7na7xoJTShYHzj L96sbIIiw0Z6BKQsaTN0CGChzO ypUbCksD09Rsa+KBDuwWvfl6Mf Wskal5efq5ixoRt1PhYdNJOa wqGugJmmWBE7n5VfDl91B41eRC jzHSQoPANbMQVlAJPpeVkxsb4c wH3zZd3+EDTdiCY4iZN9cD0a EjNpSkV2DOlxG657NfDgfVWpKh mnw2yrw7sitGx4SlDuMRZmjwPr fBujOAR1x1HhUx58R4FoxLmj b6TtLcy2dp16sDOlb3L6aAP9A6 YzWNEicwhhuWNlzCzqGH8rWHIy qrslHKAogV0rQKWdO4y7LfSh JiA0MWijO7CopjG1JZDciWJmOJ GpfSAVjO4grireg3kycdvbXvUz HVLcAIx6VSa2YINktOqpPjOh ITJ0HnG0MIP0oTColY3ypCwwvq huzD9xChl+YKx8d7zsaXWvHW4w gWG9IK83BI40vTGjr9F8lHQ4 I0EaDDNmakoueddwmXH2IVYcQQ AwxE40Hj5xrIseMr6qESQfWGT8 PSGmgWBqQ1PbdC6nVjVeMRLh ZLDxG4GqsFMqSZexL052LMzkXx E0YPRaxwArS2EiXIZacUusYfF1 p4F9Nl3JFW97RT92ND84jBFn o8V5dVB2C6BvZVHoehdsaauecY O8LIZeZBWikX83Fe3ndDafJn1s WQLzBEJ8PBWzqANuU9IbgS0b ZsRrBIVuPDZgZ7OygOCxRIrgC2 93ZAdwUtQ8QTWbwqHmD9UjVPEt sMehXfY0b7V6Sz0ZEw71HF82 JS72pXKsh2Y4gWT8U9KhUOGila ydfgpuhWI4MYStCGEywT94Rl7g kHtkMn2sKUXlQWQ0QRJevDLs R4OlyN8bQmQuVGTlHRRrJ3BmgZ RzLCfjS126FBpgEuK5EYBcggOx Z2IiNFVilRviCdS8y6E0Ar8G UXdkqeg0E2FgWkfwtDK+PC90YW LkJO89aIFddSXya7potTz2QqJc CJKbIHY5hWbbGVoxk6KoYWOc Y29 (more content not included)... [facility] Provider Orderson 02-06-2025 Provider Orders [id number]-04-2025 Consent Forms [id number] [facility] MAGR Intraoperative Recordon 02-04-2025 MAGR Intraoperative Record MAGR Intra-Op Record Summary Primary Physician: Derik Marrero MD Finalized Date/Time: 02/04/25 11:18:12 Pt. Name: DYAN HARRELL /Sex: 1960 MALE Med Rec #: [id number] Physician: Derik Marrero MD Financial #: [id number] Pt. Type: D Room/Bed: / Admit/Disch: 02/03/25 [...] Role Performed Surgeon - Primary Anesthesiologist of Stone Decorator Record Time In 02/03/25 10:30:00 02/03/25 10:30:00 [...] RN Role Performed Scrub Personnel Scrub Personnel Stone Decorator Time In 02/03/25 10:30:00 02/03/25 10:30:00 02/03/25 [...] MD, Time Out Time 02/03/25 10:41:00 Participants Gywn Keith MD, Rianna Lucero RN, Afshin Goodwin, Ciera Garrison [employer] EXECUTIVE Last Modified By: Rianna Lucero RN 02/03/25 [...] Additional Patient (more content not included)... Normal [facility] Anesthesia Noteon 02-03-2025 Anesthesia Note Patient: GENNA HARRELL Age: 64 years Sex: MALE : 1960 Associated Diagnoses: None Author: Gwyn Keith MD Postoperative Information Post Operative Note: Operative Day. Anesthetic utilized: Monitored anesthesia care. Health Status Allergies: Allergic Reactions (All) No known allergies Problem list: All Problems Diabetes / SNOMED CT 960482302 / Confirmed Kidney stones / SNOMED CT 260659156 / Confirmed Physical Examination Vital Signs (last [...] on: 02/03/2025 11:52 EDT] Gwyn Keith MD [facility] Anesthesia Note Patient: GENNA HARRELL Age: 64 [...] list: All Problems Diabetes / SNOMED CT 561766910 / Confirmed Kidney stones / SNOMED CT 009972807 / Confirmed Histories Family History: No family history items have been selected or recorded. Procedure history: ESWL (extracorporeal shockwave lithotripsy) of ureteric calculus (4983657662). Appendectomy (338036323). Cervical vertebral fusion (43293000). Tonsillectomy (993727365). Cholecystectomy (71406736). Social History Electronic Cigarette/Vaping Assessment Electronic Cigarette [...] mobility: Good. Mouth: Adequate opening, Tongue ( [place], Moist ), Teeth ( unremarkable ). Neck: Supple, Non-tender, Full range of motion, ACDF in past, but still good ROM. Respiratory: Lungs are clear to auscultation. Cardiovascular: Regular rhythm. Neurologic: Alert, Oriented. Review / Management Laboratory Results Plan [place] [employer]esthesi[employer] (ASA) physical status classification: Class II. Anesthetic Preoperative Plan Anesthesia: Monitored anesthesia care. Anesthetic plan, risks, benefits, and alternatives discussed with the patient and/or family. Patient verbalized understanding. Informed consent was given. Consent was signed by the patient. [Electronically Signed on: 02/03/2025 09:46 EDT] Gwyn Keith MD [Verified on: 02/03/2025 09:46 EDT] Gwyn Keith MD [facility] Inpatient Patient Summaryon 02-03-2025 Inpatient [place] [address] Patient Discharge Instructions Name: DYAN HARRELL : 1960 Patient Address: [address] [place] [address] Primary Care Provider: Name: MAREK SANTIAGO JR. After you are discharged if you find you have any questions, please, call [phone] ext [phone] to speak to a nurse. Discharge Diagnosis: 1:Kidney stones Prescription Information: If you have been given a prescription for narcotics, seek immediate medical attention if you have any difficulty breathing or any sudden status changes such as confusion and sleepiness. If you or anyone you know is experiencing suicidal thoughts, mental health, alcohol and/or drug addiction problems; contact the [facility] 29/01 Crisis Hotline -Text 4HJTT to 511380. If you received any narcotics, sedation, or [...] business decisions or sign any legal documents [facility] would like to thank you for allowing [...] Yes Antibiotics Are (more content not included)... [facility] MAGR Postoperative Recordon 02-03-2025 MAGR Postoperative Record MAGR Phase II Record Summary Primary Physician: Derik Marrero MD Finalized Date/Time: 02/03/25 12:43:29 Pt. Name: DYAN HARRELL DANTE Cheek./Sex: 1960 MALE Med Rec #: [id number] Physician: Derik Marrero MD Financial #: [id number] Pt. Type: D Room/Bed: / Admit/Disch: 02/03/25 [...] By: Nickie Wright RN 02/03/25 12:43 [facility] 02-03-2025 MAGR Preoperative Record MAGR Pre-Op Record Summary Primary Physician: Derik Marrero MD Finalized Date/Time: 02/03/25 10:38:29 Pt. Name: DYAN HARRELL /Sex: 1960 MALE Med Rec #: [id number] Physician: Derik Marrero MD Financial #: [id number] Pt. Type: D Room/Bed: / Admit/Disch: 02/03/25 [...] By: Rianna Lucero RN 02/03/25 10:38 Normal [facility] POCT Glucose Levelon 025 Glucose [Mass/Vol] 205 mg/dL High [address] [place] [address] Comment on above: Result Comment: OPR_ ID=[email or web address],TGC FLAG = False Performed By: #### 4 [id number] ####[facility] (DEFAULT)[address] [place] [address] Glucose [Mass/Vol] 208 mg/dL High [address] [place] [address] Comment on above: Result Comment: OPR_ ID=[email or web address],TGC FLAG = False Performed By: #### 4 [id number] ####[facility] (DEFAULT)[address] [place] [address] Patient Handouton 02-03-2025 Patient Handout [facility] XR Abdomen Single View (KUB) on 02-03-2025 [...] Punctate left nephroliths Final Dictated by: Rox Torres MD Dictated DT/TM: 02/04/25 8:42 Signed (Electronic Signature): Rox Torres MD 02/04/25 8:43 am Technologist: [facility] Progress Note - Nurseon 01-07 Progress Note - Nurse Pre-op call for surgery made. Pt denies sickness. 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 [Electronically Signed on: 02/02/2025 13:40 EDT] iNckie Wright [facility] Coding Summaryon 01-15-2025 Coding Summary HTMLBase 64 IijdbrwdUKx5dRq+PGhlYWQ+PE 0XCVZkT90cgXPnlD8nK4EDJVlX DdxfHGODWDtCOmPbwiAyDG0xwM NjZXJu IC8+BC4dCWFpFwpjaNXcm0I5zQ Y5D36osu5gFBnasOP5NEPlVzAt trlkd0gghOb9BTbcKsqmAiRe SVNzhX66IKQ6lU14Xj95uLXmbP Bnj7ojrOs3WsSdLKXyCGK1jOzj CUgio5FiABUzF79bpSAyl9L4 GVUhmZfqkKQgAuAdtGM1sD7sPA cjdkvnr5ftypfmPht5bg85kOQs w0X5rUA3V9LdibS3ORUpfDAz SwiqaSQJnZ9cmisoh6pucketGv PmKWSuAEm5UBx6VFTgbRezNxYq ND74NXB9OSHruoWsA8YmMHQv yJfiVhK7v1R8Ur2LM5UCNrufD3 VNTUFSWTwvdGQ+WM66bp90V3Fp FsbzYsd7YBCiYJI0lVP6aY4e OJRkIUzcu2O6mWU2U3UnkqWmfd 1lp5fvEWIhNHtiQ51xfTUix4A8 MEHseXM3CUSmrOwcUjWouQ78 Oyc+ASUrnGtlu6OuWhosp0cov7 jpoUn9CirgBNOnbzUusQkgJDU4 r9BaEw4aLTNefDE7tML9cD8i UrPrIcU9UNqpQ224PaMvzVEiXs tfG79hD7HjmTZ+VVEgAdj8YKYt kNimFC0pL4TbWNNndtwpqUMa cNclHJ2kJJAledzpZYNwnR3dDF XeM7h4RzRfIyH9LNvgX6WtYUKs hvaySv82fO4oYnGzGjG3HSet E6BzbdS2XQLndVDnNErxXDX0C4 1fh8C8HWTtWTCvRGZ4eKU3fG8j bGlnbjogbGVmdDsgdmVydGlj ETdsCVhqS106KPXclJvuXfStWX luZyBEYXRlOiAgMDcvMTAvMjAy NTwvdGQ+QZYlRMG4aVzyLJDo xASoIIacQx4zmYhprLliOW1uSM WnqoduITQvxH2oBQSbfKKshMwb YZ2xTAPcntexa183VjJgUZB4 NPBoaZDvF1HdpF9aWuZeEXBoRT WfG0BliOSeRBlsA174USqoNuM9 BVUyqvYlF1PdYAWojEtoObY5 b2G0Rp8Rn6OqhtnoM2RueKLuIm FnEdjaAUr2J8FmFnfpuEP+PC90 CEMoKO06SCk8HAN6tDzsYBtd EAJzM4PssL8yAiHkIMBtKGJbYt c+PHRhYmxlIHdpZHRoPScxMDAl OwMttXkkUD3gPi4jCEFxBCFr bEumdWVjBsUqe5nmZUQkUXovAG 0zxKicO5UxnJW9VWQxn2s9Hk83 O74iC1YnaDT+GBPujHX9lXB8 iB1sLtPuXmZ1GHapR663LbLkfP KmHumam5mwr1tpdZk5AxE5GYUv ryYzlZmpHXL0s2QtLo15I23a IHdpZHRoPSIxNSUiIHZhbGlnbj 3trS2pDs2+TTBacOU9kXO3bS7o QlZkLnO0ZKbzG807KuQfhXVf Xtnqj4tcu8bjlBc3PtMhEOYrhn UjoBhbKVL6q8TkYi72R7QssHlg o7LqOft4rs53eOTtl3M9rFG8 I2AeLHZvobgqsCIphCvpPM8aPH WekvhhYNRcdY8qTXDmC0n2KdUd XsD0ZNrzV3VpwdM1ATNmlJIv VHTbxRZPnH0fmcita9mvqeteFp XdPFRfVMu2YQd1WQSjeLvlDyEs WVD2OnW8LNH1uXKtvP8ukHfb vjepmC3sYyu+NSQ3tMStrTLICE 1lOjwvdGQ+YQHkFFW9zKpqWJms RXMegY7zBFGiQ0z8MzGxDbX1 USlyL7FhrbI3GGDwtNReDUHaeC KZvM5tcfbpc8fjeibfZrVpCHWr YTu8LAv1QFJsjGcyHdAuTPQ8 VsG0WKQ8iLMtgS7vaRijpeorqL 9wOyc+AkkldWkhHLL7OVs1Z7Hx Vol9GORnkUbeGE3syLNtLBmt Ib1yqOxxqTxoDK0eYTFhjywpe8 76QjCtx4zgSUUjrPLvQGpdYXP1 H02ji8G4OANhBOTtBVN3pOB0 eM5srFdibgllrWDrpXynkmAtyZ yiRKgqZYfnF670KPAvbReeVnXm ZGa8R9NpGlu0NACypJqsYC7y iPFpKGkaRf8mlBnvdEtkDM0eIO Bjwwasw271YzOjq4fxIBYctQGl PSogWQI9M93kv9N6UYLfASYu ASO4dSA7yR1ypRneysfczFUfuA kefnFfjDwkJSbkNLbzA958QOCg pGcuDrFqyBr1H0EgCpt9JKGr dGnqFV5spPOhXIuzHc5xhHvvpD afFL0tPXOolpvdt909BhDho5av WLNwuUHbVPhuRMH2C42aa9D8 SECxVOZfLKO0hOQ1qM6ciHisir ogbGVmdDsgdmVydGljYWwtYWxp N968AFXhuBsqJySltXkwtqYp BKmtAYc0H2IsMxndyML+PC90YW MiSN90wHOmnVWxy4yvwXt3WaLs ZZNwDMP6pRdsSVrwc6EvDKCc Q83lfUNaw6H9YGFhpHkkkYKrBt MeyLO3pT1fNQccedmkz9adwiqf Jhqbq3sfhw11rS10L84gAWur RUFnUHKeVKWnMLWuhOuzsi5mbZ 9wIi8+UOArcOG0dIV2cK2dXWVw FiP0UFafZ176QeKpdJSmOnur w0eom5pyeNa4UgM7XHDslcFgvX heYYT4y9BbIj32N69bOQxyFVFj SWHcJONpEHIzuEstlz1zwU3f Ii8+ZMOorBZ1aHD8kI4xGzQyPf Z9ZLmaZ385LfYuwKYeNczrC00n T9LpmFU+VLRyLui6OLEvqAxf XC6eaRKvPGtwVn3tRIX4JsDnDc BxHDgkA1QwFEKgmageauedaUI9 QGSlXERjwF65Dk1tsDynMHAe kERLdC8bepwzm0pkbxtsWpXeMH GfXLh2WUj7BQXgnMkeXiImBIL3 OtX3GRW4zJUsfB2ymUfiilil wB1lC1OwEAIgcqekFg50jH0wHi FvPkZ8KKinDbv+N9uCMHtWSMIH SUNIQUVMIFJBWTwvdGQ+PHRk RHC7kQevWWurCVEqfQ7fJCZbV7 z7DuQeJxL4BCaiZ1UlHAZxtszn Dn54cT4pFmNrGzJ4YJpyR4Ka grE4LBZzqOJtKJppDDF9L76js7 L3STZgFWZeCRN5kFN4nG9emBkn bjogbGVmdDsgdmVydGljYWwt SDucZ392IBSakSghFzQ1IzBkIq W6RXp6P5LmFej4LVEykTezYO8o cQWfHOzaSk8deIeraVrpYD6i VDQayujlYLQcdJ9sWWHnzFLsoN dmQM4qFXFduebwc151NpJgOKI3 ZYGpjWTzT4SpyG9wPgLtNNGo WOCmO9NmoXIrDRjlH233CRntGv A5PXLoyiQzO2YgALAjiUijPoZ4 y8W9Cu42FwROQSMjndihcXK+ BUUsBTM3iEzjWXziYXNqmD4vTW ZkR8g7CoGnMpN4RRckR4OnTPRo axyfQw13aK3cAiIsQqJ5DItx G6CqmkR7JBLofYHkKJinJTZ8K7 2dp0C8WRDaXFVaBOG8kJH8sA0h bGlnbjogbGVmdDsgdmVydGlj LMbhXVgcG950UGNoiMloNf9QYQ T4O5CjJpa3HMBmkVkuGB3siVFz TTrrFt0qlKycuVdgKI8bXPUr zkfsEKLzvL8wTPEwaITrdKqwEA 4aZECgisnzx696TwUuSYB5ULZc uZLnF7UexS1oKdGzUGJfHTJy V7SpmNUpWWfsH608AAubZmJ9OY WozaKpZ2KiPQSbfGxnTbU8l5S7 Tm1UZDcxbDA+EI80po92B1Ek NbkgLnv5DHOoNIR9tEC4hT5xWH DjABwyc4S2wXW2Q7ZeagXftw2c j8spZYVzDUvlF16bxMCgw7J3 PHUonKX0HYRvxOudPsUseI87At c+VLVhgTvnr0GlZlecy9rnd3sk aNe1HqLtPMIvvzEakHpoJLZ3 l1EbKq10F60vTRxoONHfAKNeEN QsJPKjsQtqai4geU2qMi9+PGNv gZC6jPX2mV5lVxZiLvS7FOhn W381IcVthVBlWgtnc3szz4afcP z9GhHoMPWeonWqzCcpHNG6p0Lc La49M5EgsZkrn4TePsl5ew24 oOLcn7G3sXO1Q4MzZPEkmevubC WxzUfhNI0hXHTbwxypBKQumQ9b KJUiJ1y2IqKzPeH5JAykT0Ob mbY3HPYxzIYpRRWwuPLRfI8hht eux0epotvhIlHwYDOlSLe5AXh3 GWDxxJfaPhAcANB8OpW5KBG9 kJMvmP9tuMyobzhmwB7vNpj+UG w5b7qtmZLpEC7mgKM0NE38RQ37 kTMgx3S1eWH9S8QsQQCnacqc ipluxSV6VMMwEGFviL54Mb0doN llZf3aCTRtWPL8YBXbrBRxV0Yb eU8rDpQuYHJeUKQzG4BhvOAc HEzhW868KQihWvP6NHCagvZgC8 GxJTDwbPyzNvE6d8X8Ea9WKM05 ZU65WA64hNOhm5F4mZI9L6On SLCewnfypicjrFR8BGQhQVFutP 37Vv6gfJgkIj0iRXIwWND3BZAy oHIcB1GkkU7sPiFqTKDmKPMj V8VjiHLmMBgbK086VJfnRuY9EL PtnlJdJ9WmJSXzsZlnXvL4f3F4 Ga6XQq39LF84YT20rEXts0T2 kNM1U1SgLEOnsdthcvjpgYY7TH NsOJTziT75Yf4thAqsKo9zETJe CKE9OHElpWXkV8BxlE9aPpNf DYHgIJJiD5QkjYEuEZhrP272EH kxNxN9GGHftuVfF8MfUYQdkHnc TaZ1t6F8Gs5PFYziqan6M7Te PjwvdHI+RG66TFRbYM07zEYaaG Jzc5bqsMq2QuAyGKEeNCI0lXdh FHbkr0VmXFRnC03xkYXix4S6 IGN (more content not included)... Normal [facility] .Auto Diff 01-07-2025 Auto [place] % 9 % Normal 12 [facility] Comment on above: Performed By: #### 1 [id number], [id number], [id number] #### [facility] (DEFAULT) [address] [place] [address] Baso Abs# 0.1 x10 Normal 0.0-0.2 [facility] Comment on above: Performed By: #### 1 [id number], [id number], [id number] #### [facility] (DEFAULT) [address] [place] [address] 87098 Basophils/100 WBC (Bld) 1.0 % Normal 0.2-2.0 [facility] Comment on above: Performed By: #### 1 [id number], [id number], [id number] #### [facility] (DEFAULT) [address] [place] [address] 42816 Eos Abs# 0.3 x10 Normal 0.0-0.4 [facility] Comment on above: Performed By: #### 1 [id number], [id number], [id number] #### [facility] (DEFAULT) [address] [place] [address] 11805 Eosinophils/100 WBC (Bld) 4.6 % High 0.9-4.0 [facility] Comment on above: Performed By: #### 1 [id number], [id number], [id number] #### [facility] (DEFAULT) [address] [place] [address] 98296 Lymph Abs# 2.1 x10 Normal 1.3-2.9 [facility] Comment on above: Performed By: #### 1 [id number], [id number], 7537067 #### [facility] (DEFAULT) [address] [place] [address] 08046 Lymphocytes/100 WBC (Bld) 31 % Normal 14-48 [facility] Comment on above: Performed By: #### 1 1149759, [id number], [id number] #### [facility] (DEFAULT) [address] [place] [address] 25781 [place] Abs# 0.6 x10 Normal 0.0-0.8 [facility] Comment on above: Performed By: #### 1 4261150, [id number], 1062262 #### [facility] (DEFAULT) [address] [place] [address] 12802 Neut Abs# 3.6 x10 Normal 1.5-9.2 [facility] Comment on above: Performed By: #### 1 4031657, [id number], 2549621 #### [facility] (DEFAULT) [address] [place] [address] 98520 Neutrophils/100 WBC (Bld) 54 % Normal 44-88 [facility] Comment on above: Performed By: #### 1 3989692, [id number], 2965565 #### [facility] (DEFAULT) [address] [place] [address] 22157 [facility] Standardon 01-07-2025 eGFR Non AA >60 Invalid Interpretation Code [facility] Comment on above: Performed By: #### 1 [id number], [id number], 1243976 #### [facility] (DEFAULT) [address] [place] [address] 99188 eGFR AA >60 Invalid Interpretation Code [facility] Comment on above: Performed By: #### 1 9343751, [id number], [id number] #### [facility] (DEFAULT) [address] [place] [address] 32389 Anion gap [Moles/Vol] 9.4 mmol/L Normal 5.0-19.0 [facility] Comment on above: Performed By: #### 1 8021925, [id number], 1837155 #### [facility] (DEFAULT) [address] [place] [address] 98800 Calcium [Mass/Vol] 10.8 mg/dL High 8.9-10.3 [facility] Comment on above: Performed By: #### 1 4173578, [id number], 8504547 #### [facility] (DEFAULT) [address] [place] [address] 93266 Chloride [Moles/Vol] 102 mmol/L Normal 101-111 [facility] Comment on above: Performed By: #### 1 [id number], [id number], 9869387 #### [facility] (DEFAULT) [address] [place] [address] 92955 CO2 [Moles/Vol] 27 mmol/L Normal 21-32 [facility] Comment on above: Performed By: #### 1 7016556, [id number], 1830871 #### [facility] (DEFAULT) [address] [place] [address] 03290 Creatinine [Mass/Vol] 1.07 mg/dL Normal 0.90-1.30 [facility] Comment on above: Performed By: #### 1 9490469, [id number], 3528867 #### [facility] (DEFAULT) [address] [place] [address] 84540 Glucose [Mass/Vol] 173.0 mg/dL High 74.0-118.0 [facility] Comment on above: Performed By: #### 1 0437333, [id number], 6972817 #### [facility] (DEFAULT) [address] [place] [address] 87251 Osmolality 275 mOsm/L Invalid Interpretation Code [facility] Comment on above: Performed By: #### 1 8772638, [id number], [id number] #### [facility] (DEFAULT) [address] [place] [address] 63787 Potassium [Moles/Vol] 3.4 mmol/L Low 3.6-5.1 [facility] Comment on above: Performed By: #### 1 4077174, [id number], 9242457 #### [facility] (DEFAULT) [address] [place] [address] Sodium [Moles/Vol] 135.0 mmol/L Low 136.0-144 . 0 [facility] Comment on above: Performed By: #### 1 2503524, [id number], 4590386 #### [facility] (DEFAULT) [address] [place] [address] Urea nitrogen [Mass/Vol] 16 mg/dL Normal 8-26 [facility] Comment on above: Performed By: #### 1 1029161, [id number], 7268069 #### [facility] (DEFAULT) [address] [place] [address] Urea nitrogen/Creatinine [Mass ratio] 14.9 mg/mg Normal 4.6-16.2 [facility] Comment on above: Performed By: #### 1 1897833, [id number], 2235661 #### [facility] (DEFAULT) [address] [place] [address] CBC w/ Auto Diffon Erythrocyte distribution width (RBC) [Ratio] 13.4 % Normal 11.5-15.0 [facility] Comment on above: Performed By: #### 1 4064065, [id number], 5381759 #### [facility] (DEFAULT) [address] [place] [address] Hematocrit (Bld) [Volume fraction] 41.6 % Normal 34.8-51.9 [facility] Comment on above: Performed By: #### 1 5423531, [id number], 7028214 #### [facility] (DEFAULT) [address] [place] [address] Hemoglobin (Bld) [Mass/Vol] 14.5 g/dL Normal 11.8-17.7 [facility] Comment on above: Performed By: #### 1 5894509, [id number], 8588962 #### [facility] (DEFAULT) [address] [place] [address] Man Diff? Auto Invalid Interpretation Code [facility] Comment on above: Performed By: #### 1 5842935, [id number], 7415245 #### [facility] (DEFAULT) [address] [place] [address] 63445 MCH (RBC) [Entitic mass] 29 pg Normal 24-34 [facility] Comment on above: Performed By: #### 1 8309485, [id number], 4984892 #### [facility] (DEFAULT) [address] [place] [address] 90243 MCHC (RBC) [Mass/Vol] 35 g/dL Normal 26-37 [facility] Comment on above: Performed By: #### 1 7104005, [id number], 9557296 #### [facility] (DEFAULT) [address] [place] [address] 75844 MCV (RBC) [Entitic vol] 84 fL Normal 81-100 [facility] Comment on above: Performed By: #### 1 3917268, [id number], 3841498 #### [facility] (DEFAULT) [address] [place] [address] 57512 Platelet 351 x10 Normal 138-427 [facility] Comment on above: Performed By: #### 1 7959003, [id number], 2563095 #### [facility] (DEFAULT) [address] [place] [address] 30064 Platelet mean volume (Bld) [Entitic vol] 7.7 fL Normal 6.3-10.2 [facility] Comment on above: Performed By: #### 1 4071331, [id number], 7381581 #### [facility] (DEFAULT) [address] [place] [address] 65234 RBC 4.96 x10 Normal 3.70-5.30 [facility] Comment on above: Performed By: #### 1 7224840, [id number], 3547915 #### [facility] (DEFAULT) [address] [place] [address] 69542 WBC 6.7 x10 Normal 3.5-10.5 [facility] Comment on above: Performed By: #### 1 8704501, [id number], 9212838 #### [facility] (DEFAULT) [address] [place] [address] Consultation/Specialist Note on 12-16-2024 Consultation/Specialis t Note [id number] Normal [facility] ED Note-Physicianon 03-21-20 ED Note-Physician [id number]#1.00CD:127 [facility] Facesheeton 03-21-2023 Facesheet [id number]#1.00CD:127 [facility] Pathology Noteon 03-21-2023 Pathology Note [id number]#1.00CD:127 [facility] Ambulatory Visit Summaryon 0 03-20-2023 Ambulatory Visit [...] SIMON, Serafin Mixon Where: [facility] [place] [facility] General Surgery Office/Clini c Noteon 03-20-2023 General [...] virus vaccine, live, trivalent 04/23/2019 Recorded Normal [facility] Comment on above: Result Comment: Elec tronically Signed By: BRYSON SIMON, Dyan Montez\Date and Time Signed: 03/20/23 16:23 EDT Operative Reporton Operative Report [id number]#1.00CD:127 Normal [facility] AMYLASEon 09-14-2022 Amylase [Catalytic activity/Vol] 89 U/L Normal 25-115 [facility] Comment on above: Performed By: #### L IPA, CMP, VIJI #### [facility] [address] [place] [address] Dr. Hailey Marr CBC AUTO DIFFon 09-14-2022 BASO # 0.1 103/ul Normal 0.0-0.1 [facility] Comment on above: Performed By: #### C BC #### [facility] [address] [address] [address] Hailey Marr Basophils/100 WBC (Bld) 0.6 % Normal 0.2-2.0 [facility] Comment on above: Performed By: #### C BC #### [facility] [address] [place] [address] Dr. Hailey Marr EO # 0.2 103/ul Normal 0.0-0.7 [facility] Comment on above: Performed By: #### C BC #### [facility] [address] [place] [address] Dr. Hailey Marr Eosinophils/100 WBC (Bld) 1.5 % Normal 0.9-7.0 [facility] Comment on above: Performed By: #### C BC #### [facility] [address] [place] [address] Dr. Hailey Marr Erythrocyte distribution width (RBC) [Ratio] 13.6 % Normal 11.0-15.0 [facility] Comment on above: Performed By: #### C BC #### [facility] [address] [place] [address] Dr. Hailey Marr Hematocrit (Bld) [Volume fraction] 40.9 % Critically low 42.0-54.0 [facility] Comment on above: Performed By: #### C BC #### [facility] [address] [place] [address] Dr. Hailey Marr Hemoglobin (Bld) [Mass/Vol] 14.3 g/dL Normal 14.0-18.0 [facility] Comment on above: Performed By: #### C BC #### [facility] [address] [place] [address] Dr. Hailey Marr IG # 0.04 10e3/ul Critically high 0.00-0.03 [facility] Comment on above: Performed By: #### C BC #### [facility] [address] [place] [address] Dr. Hailey Marr IG % 0.3 % Normal 0.0-0.5 [facility] Comment on above: Performed By: #### C BC #### [facility] [address] [place] [address] Dr. Hialey Marr LYMPH # 1.6 103/ul Normal 1.2-3.8 [facility] Comment on above: Performed By: #### C BC #### [facility] [address] [place] [address] Dr. Hailey Marr Lymphocytes/100 WBC (Bld) 12.6 % Critically low 20.5-60.0 [facility] Comment on above: Performed By: #### C BC #### [facility] [address] [place] [address] Dr. Hailey Marr MANUAL DIFF REQ NO Normal [facility] Comment on above: Performed By: #### C BC #### [facility] [address] [address] [address] Hailey Marr MCH (RBC) [Entitic mass] 29.1 pg Normal 25.9-34.0 [facility] Comment on above: Performed By: #### C BC #### [facility] [address] [place] [address] Dr. Hailey Marr MCHC (RBC) [Mass/Vol] 35.0 g/dL Normal 29.9-35.2 [facility] Comment on above: Performed By: #### C BC #### [facility] [address] [place] [address] Dr. Hailey Marr MCV (RBC) [Entitic vol] 83.3 fL Normal 80.0-94.0 [facility] Comment on above: Performed By: #### C BC #### [facility] [address] [place] [address] Dr. Hailey Marr MONO # 1.0 103/ul Critically high 0.3-0.8 [facility] Comment on above: Performed By: #### C BC #### [facility] [address] [place] [address] Dr. Hailey Marr Monocytes/100 WBC (Bld) 8.3 % Normal 1.7-12.0 [facility] Comment on above: Performed By: #### C BC #### [facility] [address] [place] [address] Dr. Hailey Marr NEUT # 9.6 103/ul Critically high 1.4-6.5 [facility] Comment on above: Performed By: #### C BC #### [facility] [address] [place] [address] Dr. Hailey Marr Neutrophils/100 WBC (Bld) 76.7 % Critically high 43.0-75.0 [facility] Comment on above: Performed By: #### C BC #### [facility] [address] [place] [address] Dr. Hailey Marr Platelet mean volume (Bld) [Entitic vol] 9.8 fL Normal 9.5-13.5 [facility] Comment on above: Performed By: #### C BC #### [facility] [address] [place], [place] [address] Dr. Hailey Marr PLT 326 103/ul Normal 150-450 [facility] Comment on above: Performed By: #### C BC #### [facility] [address] [place], [place] [address] Dr. Hailey Marr RBC 4.91 106/ul Normal 4.70-6.10 [facility] Comment on above: Performed By: #### C BC #### [facility] [address] [place], [place] [address] Dr. Hailey Marr WBC 12.5 103/ul Critically high 4.0-11.0 [facility] Comment on above: Performed By: #### C BC #### [facility] [address] [place], [place] [address] ABD/PELVIS WO CONon [...] TANJA BECKER Date: 2022-09-14 08:07 Normal [facility] ER URINE PROFILEon 3 Bilirubin Ql (U) Negative Normal NEGATIVE [facility] Comment on above: Performed By: #### U MICRO, ERUR #### [facility] [address] [address] [address] Hailey Marr Clarity (U) CLEAR Normal CLEAR [facility] Comment on above: Performed By: #### U MICRO, ERUR #### [facility] [address] [place], [place] [address] Dr. Hailey Marr Color (U) YELLOW Normal YELLOW [facility] Comment on above: Performed By: #### U MICRO, ERUR #### [facility] [address] [address] [address] Hailey BABIN A micrscopic examina tion will be performed if indicated. Normal [facility] Comment on above: Performed By: #### U MICRO, ERUR #### [facility] [address] [place] [address] Dr. Hailey aMrr Glucose Ql (U) Negative Normal NEGATIVE [facility] Comment on above: Performed By: #### U MICRO, ERUR #### [facility] [address] [address] [address] Hailey Marr Hemoglobin Ql (U) LARGE Abnormal NEGATIVE [facility] Comment on above: Performed By: #### U MICRO, ERUR #### [facility] [address] [place] [address] Dr. Hailey Marr Ketones Ql (U) 15 mg/dl Abnormal NEGATIVE [facility] Comment on above: Performed By: #### U MICRO, ERUR #### [facility] [address] [place] [address] Dr. Hailey Marr LEUKOCYTES Negative Normal NEGATIVE [facility] Comment on above: Performed By: #### U MICRO, ERUR #### [facility] [address] [place] [address] Dr. Hailey Marr Nitrite Ql (U) Negative Normal NEGATIVE [facility] Comment on above: Performed By: #### U MICRO, ERUR #### [facility] [address] [address] [address] Hailey Marr pH (U) 5.5 [pH] Normal 5-9 [facility] Comment on above: Performed By: #### U MICRO, ERUR #### [facility] [address] [address] [address] Hailey Marr Protein (U) [Mass/Vol] 30 mg/dL Abnormal NEGAT LUIIG/ TRACE [facility] Comment on above: Performed By: #### U MICRO, ERUR #### [facility] [address] [place] [address] Dr. Hailey Marr SPEC GRAVITY >=1.030 Abnormal 1.005-<=1. 025 [facility] Comment on above: Performed By: #### U MICRO, ERUR #### [facility] [address] [place] [address] Dr. Hailey Marr UR MICRO IND INDICATED Normal [facility] Comment on above: Performed By: #### U MICRO, ERUR #### [facility] [address] [place] [address] Dr. Hailey Marr Urobilinogen Qn (U) 0.2 {Bryon'U}/dL Normal 0.2 - 1. 0 [facility] Comment on above: Performed By: #### U MICRO, ERUR #### [facility] [address] [place] [address] Dr. Hailey Marr LIPASEon 09-14-2022 Lipase [Catalytic activity/Vol] 662.0 U/L Critically high 73.0-393.0 [facility] Comment on above: Performed By: #### L IPA, CMP, VIJI #### [facility] [address] [place] [address] Dr. Hailey Marr PROF 14(COMP METB)on 023 Albumin [Mass/Vol] 4.0 g/dL Normal 3.4-5.0 [facility] Comment on above: Performed By: #### L IPA, CMP, VIJI #### [facility] [address] [place] [address] Dr. Hailey Marr Albumin/Globulin [Mass ratio] 0.9 {ratio} Normal [facility] Comment on above: Performed By: #### L IPA, CMP, VIJI #### [facility] [address] [place] [address] Dr. Hailey Marr ALP [Catalytic activity/Vol] 69 U/L Normal 46-116 [facility] Comment on above: Performed By: #### L IPA, CMP, VIJI #### [facility] [address] [place] [address] Dr. Hailey Marr ALT [Catalytic activity/Vol] 51 U/L Normal 16-63 [facility] Comment on above: Performed By: #### L IPA, CMP, VIJI #### [facility] [address] [address] [address] Hailey Marr Anion gap [Moles/Vol] 13.4 mmol/L Normal [facility] Comment on above: Performed By: #### L IPA, CMP, VIJI #### [facility] [address] [address] [address] Hailey Marr AST [Catalytic activity/Vol] 24 U/L Normal 15-37 [facility] Comment on above: Performed By: #### L IPA, CMP, VIJI #### [facility] [address] [address] [address] Hailey Marr Bilirubin [Mass/Vol] 0.5 mg/dL Normal 0.2-1.0 [facility] Comment on above: Performed By: #### L IPA, CMP, VIJI #### [facility] [address] [place] [address] Dr. Hailey Marr Calcium [Mass/Vol] 10.8 mg/dL Critically high 8.5-10.1 [facility] Comment on above: Performed By: #### L IPA, CMP, VIJI #### [facility] [address] [address] [address] Hailey Marr Chloride [Moles/Vol] 104 mmol/L Normal 98-107 [facility] Comment on above: Performed By: #### L IPA, CMP, VIJI #### [facility] [address] [address] [address] Hailey Marr CO2 [Moles/Vol] 26.6 mmol/L Normal 21.0-32.0 [facility] Comment on above: Performed By: #### L IPA, CMP, VIJI #### [facility] [address] [address] [address] Hailey Marr Creatinine [Mass/Vol] 1.19 mg/dL Normal 0.70-1.30 [facility] Comment on above: Performed By: #### L IPA, CMP, VIJI #### [facility] [address] [address] [address] Hailey Marr EGFR-AF CROATIAN >60 Normal >=60 [facility] Comment on above: Result Comment: Prev iously reported as: 60 On 09/14/2022 08:02 By [email or web address] Performed By: #### L IPA, CMP, VIJI #### [facility] [address] [address] [address] Hailey Marr EGFR-NON AF CROATIAN >60 Normal >=60 [facility] Comment on above: Result Comment: Prev iously reported as: 60 On 09/14/2022 08:02 By [email or web address] Performed By: #### L IPA, CMP, VIJI #### [facility] [address] [address] [address] Hailey Marr Globulin (S) [Mass/Vol] 4.3 g/dL Normal [facility] Comment on above: Performed By: #### L IPA, CMP, VIJI #### [facility] [address] [place] [address] Dr. Hailey Marr Glucose [Mass/Vol] 201 mg/dL Critically high 74-106 [facility] Comment on above: Performed By: #### L IPA, CMP, VIJI #### [facility] [address] [address] [address] Hailey Marr Potassium [Moles/Vol] 4.0 mmol/L Normal 3.5-5.1 [facility] Comment on above: Performed By: #### L IPA, CMP, VIJI #### [facility] [address] [address] [address] Hailey Marr Protein [Mass/Vol] 8.3 g/dL Critically high 6.4-8.2 [facility] Comment on above: Performed By: #### L IPA, CMP, VIJI #### [facility] [address] [address] [address] Hailey Marr Sodium [Moles/Vol] 140 mmol/L Normal 136-145 [facility] Comment on above: Performed By: #### L IPA, CMP, VIJI #### [facility] [address] [place] [address] Dr. Hailey Marr Urea nitrogen [Mass/Vol] 21.0 mg/dL Critically high 7.0-18.0 [facility] Comment on above: Performed By: #### L IPA, CMP, VIJI #### [facility] [address] [address] [address] Hailey Marr Urea nitrogen/Creatinine [Mass ratio] 17.6 mg/mg Normal [facility] Comment on above: Performed By: #### L IPA, CMP, VIJI #### [facility] [address] [address] [address] Hailey Marr URINE MICROSCOPIC ONLYon BACTERIA TRACE Abnormal NONE SEEN [facility] Comment on above: Performed By: #### U MICRO, ERUR #### [facility] [address] [address] [address] Hailey Marr Bacteria identified Cx Nom (U) NOT INDICATED Normal [facility] Comment on above: Performed By: #### U MICRO, ERUR #### [facility] [address] [place] [address] Dr. Hailey Marr CA OX CRYSTALS FEW Normal [facility] Comment on above: Performed By: #### U MICRO, ERUR #### [facility] [address] [address] [address] Hailey Marr CAST NONE SEEN Normal NONE SEEN [facility] Comment on above: Performed By: #### U MICRO, ERUR #### [facility] [address] [address] [address] Hailey Marr Crystals LM Nom (Urine sed) SEEN Abnormal NONE SEEN [facility] Comment on above: Performed By: #### U MICRO, ERUR #### [facility] [address] [address] [address] Hailey Marr Epithelial cells LM Ql (Urine sed) RARE Normal NONE SEEN /RARE [facility] Comment on above: Performed By: #### U MICRO, ERUR #### [facility] [address] [address] [address] Hailey Marr MUCOUS NONE SEEN Normal NONE SEEN [facility] Comment on above: Performed By: #### U MICRO, ERUR #### [facility] [address] [place] [address] Dr. Hailey Marr RBC 5-10 Abnormal 0-2 [facility] Comment on above: Performed By: #### U MICRO, ERUR #### [facility] [address] [address] [address] Hailey Marr WBC 2-5 Abnormal NONE SEEN [facility] Comment on above: Performed By: #### U MICRO, ERUR #### [facility] [address] [place] [address] Dr. Hailey Marr In office Testingon 09-05-19 23 In office Testing [id number] Normal [facility] XR KUB 1 VIEWon 03-15-2022 [...] Stable bilateral nephrolithiasis Electronically authenticated by: ROX TORRES Date: 2022-03-15 06:37 Normal [facility] CBC AUTO DIFFon 12-07-2021 BASO # 0.1 103/ul Normal 0.0-0.1 [facility] Comment on above: Performed By: #### C BC #### [facility] [address] [place] [address] Dr. Hailey Marr Basophils/100 WBC (Bld) 0.7 % Normal 0.2-2.0 [facility] Comment on above: Performed By: #### C BC #### [facility] [address] [address] [address] Hailey Marr EO # 0.3 103/ul Normal 0.0-0.7 [facility] Comment on above: Performed By: #### C BC #### [facility] [address] [place] [address] Dr. Hailey Marr Eosinophils/100 WBC (Bld) 3.4 % Normal 0.9-7.0 [facility] Comment on above: Performed By: #### C BC #### [facility] [address] [place] [address] Dr. Hailey Marr Erythrocyte distribution width (RBC) [Ratio] 13.5 % Normal 11.0-15.0 [facility] Comment on above: Performed By: #### C BC #### [facility] [address] [place] [address] Dr. Hailey Marr Hematocrit (Bld) [Volume fraction] 39.4 % Critically low 42.0-54.0 [facility] Comment on above: Performed By: #### C BC #### [facility] [address] [place] [address] Dr. Hailey Marr Hemoglobin (Bld) [Mass/Vol] 13.1 g/dL Critically low 14.0-18.0 [facility] Comment on above: Performed By: #### C BC #### [facility] [address] [place] [address] Dr. Hailey Marr IG # 0.03 10e3/ul Normal 0.00-0.03 [facility] Comment on above: Performed By: #### C BC #### [facility] [address] [place] [address] Dr. Hailey Marr IG % 0.4 % Normal 0.0-0.5 [facility] Comment on above: Performed By: #### C BC #### [facility] [address] [place] [address] Dr. Hailey Marr LYMPH # 2.8 103/ul Normal 1.2-3.8 [facility] Comment on above: Performed By: #### C BC #### [facility] [address] [place] [address] Dr. Hailey Marr Lymphocytes/100 WBC (Bld) 37.2 % Normal 20.5-60.0 [facility] Comment on above: Performed By: #### C BC #### [facility] [address] [place] [address] Dr. Hailey Marr MANUAL DIFF REQ NO Normal [facility] Comment on above: Performed By: #### C BC #### [facility] [address] [place] [address] Dr. Hailey Marr MCH (RBC) [Entitic mass] 29.5 pg Normal 25.9-34.0 [facility] Comment on above: Performed By: #### C BC #### [facility] [address] [place] [address] Dr. Hailey Marr MCHC (RBC) [Mass/Vol] 33.2 g/dL Normal 29.9-35.2 [facility] Comment on above: Performed By: #### C BC #### [facility] [address] [place] [address] Dr. Hailey Marr MCV (RBC) [Entitic vol] 88.7 fL Normal 80.0-94.0 [facility] Comment on above: Performed By: #### C BC #### [facility] [address] [place] [address] Dr. Hailey Marr MONO # 0.6 103/ul Normal 0.3-0.8 [facility] Comment on above: Performed By: #### C BC #### [facility] [address] [place] [address] Dr. Hailey Marr Monocytes/100 WBC (Bld) 8.6 % Normal 1.7-12.0 [facility] Comment on above: Performed By: #### C BC #### [facility] [address] [place] [address] Dr. Hailey Marr NEUT # 3.7 103/ul Normal 1.4-6.5 [facility] Comment on above: Performed By: #### C BC #### [facility] [address] [place] [address] Dr. Hailey Marr Neutrophils/100 WBC (Bld) 49.7 % Normal 43.0-75.0 [facility] Comment on above: Performed By: #### C BC #### [facility] [address] [place] [address] Dr. Hailey Marr Platelet mean volume (Bld) [Entitic vol] 9.5 fL Normal 9.5-13.5 [facility] Comment on above: Performed By: #### C BC #### [facility] [address] [place] [address] Dr. Hailey Marr PLT 310 103/ul Normal 150-450 [facility] Comment on above: Performed By: #### C BC #### [facility] [address] [place] [address] Dr. Hailey Marr RBC 4.44 106/ul Critically low 4.70-6.10 [facility] Comment on above: Performed By: #### C BC #### [facility] [address] [place] [address] Dr. Hailey Marr WBC 7.4 103/ul Normal 4.0-11.0 [facility] Comment on above: Performed By: #### C BC #### [facility] [address] [place] [address] Dr. Hailey Marr PROF 14(COMP METB)on 022 Albumin [Mass/Vol] 3.8 g/dL Normal 3.4-5.0 [facility] Comment on above: Performed By: #### C MP #### [facility] [address] [place] [address] Dr. Hailey Marr Albumin/Globulin [Mass ratio] 1.0 {ratio} Normal [facility] Comment on above: Performed By: #### C MP #### [facility] [address] [place] [address] Dr. Hailey Marr ALP [Catalytic activity/Vol] 60 U/L Normal 46-116 [facility] Comment on above: Performed By: #### C MP #### [facility] [address] [place] [address] Dr. Hailey Marr ALT [Catalytic activity/Vol] 73 U/L Critically high 16-63 [facility] Comment on above: Performed By: #### C MP #### [facility] [address] [place] [address] Dr. Hailey Marr Anion gap [Moles/Vol] 12.5 mmol/L Normal [facility] Comment on above: Performed By: #### C MP #### [facility] [address] [place] [address] Dr. Hailey Marr AST [Catalytic activity/Vol] 30 U/L Normal 15-37 [facility] Comment on above: Performed By: #### C MP #### [facility] [address] [place] [address] Dr. Hailey Marr Bilirubin [Mass/Vol] 0.4 mg/dL Normal 0.2-1.0 [facility] Comment on above: Performed By: #### C MP #### [facility] [address] [address] [address] Hailey Marr Calcium [Mass/Vol] 10.0 mg/dL Normal 8.5-10.1 [facility] Comment on above: Performed By: #### C MP #### [facility] [address] [place] [address] Dr. Hailey Marr Chloride [Moles/Vol] 104 mmol/L Normal 98-107 [facility] Comment on above: Performed By: #### C MP #### [facility] [address] [place] [address] Dr. Hailey Marr CO2 [Moles/Vol] 27.0 mmol/L Normal 21.0-32.0 [facility] Comment on above: Performed By: #### C MP #### [facility] [address] [place] [address] Dr. Hailey Marr Creatinine [Mass/Vol] 0.89 mg/dL Normal 0.70-1.30 [facility] Comment on above: Performed By: #### C MP #### [facility] [address] [place] [address] Dr. Hailey Marr EGFR-AF CROATIAN >60 Normal >=60 [facility] Comment on above: Performed By: #### C MP #### [facility] [address] [place] [address] Dr. Hailey Marr EGFR-NON AF CROATIAN >60 Normal >=60 [facility] Comment on above: Performed By: #### C MP #### [facility] [address] [place] [address] Dr. Hailey Marr Globulin (S) [Mass/Vol] 3.9 g/dL Normal [facility] Comment on above: Performed By: #### C MP #### [facility] [address] [address] [address] Hailey Marr Glucose [Mass/Vol] 120 mg/dL Critically high 74-106 [facility] Comment on above: Performed By: #### C MP #### [facility] [address] [address] [address] Hailey Marr Potassium [Moles/Vol] 4.5 mmol/L Normal 3.5-5.1 [facility] Comment on above: Performed By: #### C MP #### [facility] [address] [address] [address] Hailey Marr Protein [Mass/Vol] 7.7 g/dL Normal 6.4-8.2 [facility] Comment on above: Performed By: #### C MP #### [facility] [address] [address] [address] Hailey Marr Sodium [Moles/Vol] 139 mmol/L Normal 136-145 [facility] Comment on above: Performed By: #### C MP #### [facility] [address] [address] [address] Hailey Marr Urea nitrogen [Mass/Vol] 10.0 mg/dL Normal 7.0-18.0 [facility] Comment on above: Performed By: #### C MP #### [facility] [address] [address] [address] Hailey Marr Urea nitrogen/Creatinine [Mass ratio] 11.2 mg/mg Normal [facility] Comment on above: Performed By: #### C MP #### [facility] [address] [address] [address] Hailey Marr Vital Signs Date Time Vital Sign Value Performing Clinician Facility 03-16-2025 09:38-0400 Diastolic blood pressure 78 mm[Hg] [address] 03-16-2025 09:38-0400 Heart rate 91 /min [address] 03-16-2025 09:38-0400 Systolic blood pressure 120 mm[Hg] [address] 03-01-2025 12:00-0400 Diastolic blood pressure 64 mm[Hg] Marek Santiago JR Work Phone: [facility] 03-01-2025 12:00-0400 Heart rate 83 /min Marek Santiago JR Work Phone: [facility] 03-01-2025 12:00-0400 Respiratory rate 17 /min Marek Santiago JR Work Phone: [facility] 03-01-2025 12:00-0400 SaO2% (BldA) [Mass fraction] 97 % Marek Santiago JR Work Phone: [facility] 03-01-2025 12:00-0400 Systolic blood pressure 103 mm[Hg] Marek Santiago JR Work Phone: [facility] 03-01-2025 08:00-0400 Body temperature 97.8 [degF] Marek Santiago JR Work Phone: [facility] 03-01-2025 06:00-0400 Body weight 84.9 kg Marek Santiago JR Work Phone: [facility] 02-26-2025 22:46-0400 Body height 182.88 cm Marek Santiago JR Work Phone: [facility] 02-26-2025 21:30-0400 Diastolic blood pressure 64 mm[Hg] Marek Santiago JR Work Phone: [facility] 02-26-2025 21:30-0400 Heart rate 123 /min Marek Santiago JR Work Phone: [facility] 02-26-2025 21:30-0400 Respiratory rate 20 /min Marek Santiago JR Work Phone: [facility] 02-26-2025 21:30-0400 SaO2% (BldA) [Mass fraction] 95 % Marek Santiago JR Work Phone: [facility] 02-26-2025 21:30-0400 Systolic blood pressure 116 mm[Hg] Marek Santiago JR Work Phone: [facility] 02-26-2025 16:04-0400 Body height 182.88 cm Marek Santiago JR Work Phone: [facility] 02-26-2025 16:04-0400 Body temperature 98.8 [degF] Marek Santiago JR Work Phone: [facility] 02-26-2025 16:04-0400 Body weight 86 kg Marek Santiago JR Work Phone: [facility] 03-20-2022 07:57-0400 Blood Pressure Location Serafin ARAGON [facility] 03-20-2022 07:57-0400 Diastolic blood pressure 70 mm[Hg] Serafin ARAGON [facility] 03-20-2022 07:57-0400 Systolic blood pressure 138 mm[Hg] Serafin ARAGON [facility] 03-15-2022 09:30-0400 Body height 182.88 cm Lala Neri Other [facility] Other 03-15-2022 09:30-0400 Body mass index (BMI) [Ratio] 29.83 kg/m2 Lala Calvey Other [facility] Other 03-15-2022 09:30-0400 Body weight 99.79 kg Lala Calvey Other [facility] Other 12-07-2021 10:00-0400 Body height 182.88 cm Lala Calvey Other [facility] Other 12-07-2021 10:00-0400 Body mass index (BMI) [Ratio] 30.51 kg/m2 Lala Calvey Other [facility] Other 12-07-2021 10:00-0400 Body weight 102.06 kg Lala Neri Other [facility] Other Encounters Encounter Date Encounter Type Care Provider Facility Start: 03-17-2025 End: 03-17-2025 ambulatory MAREK SANTIAGO JR. Facility: [facility] Start: 03-16-2025 End: 03-16-2025 Subsequent hospital visit by physician Tianna Barboza Nm 1 [facility] Comment on above: Elevated troponin; Acute or subacute form of ischemic heart disease Start: 03-16-2025 End: 03-16-[address] [facility] Start: 02-26-2025 End: 03-01-2025 Evaluation and management of inpatient Orlando Walton MD -[facility] Work Phone: Start: 02-24-2025 ambulatory Derik Marrero Facility :[facility] Start: 02-17-2025 End: 02-17-2025 ambulatory Derik Marrero Facility:[facility] Start: 02-17-2025 ambulatory Derik Marrero Facility : [facility] Start: 02-15-2025 End: 02-15-2025 ambulatory Marek Santiago JR Work Phone: [facility] Work Phone: Start: 02-15-2025 End: 02-15-2025 Departed Referred NON STAFF -[facility] Start: 02-13-2025 End: 02-13-2025 ambulatory Marek Aleman Estephaniakevin SHAW Work Phone: [facility] Work Phone: Start: 02-13-2025 End: 02-13-2025 Departed Referred NON STAFF -LAB [facility] [place] [facility] Start: 02-03-2025 End: 02-03-2025 ambulatory Derik Marrero Facility:[facility] Start: 01-07-2025 End: 01-07-2025 ambulatory Derik Marrero Facility:[facility] Start: 03-20-2023 End: 03-21-2023 ambulatory Dyan SHERLove Facility:[facility] Start: 03-20-2023 End: 03-20-2023 Patient encounter procedure Dyan Huntley BRYSON [facility] Start: 03-08-2023 ambulatory Serafin ARAGON Facility:[facility] Start: 09-14-2022 End: 09-14-[address] HILDA SOTO . Facility:[facility] Start: 03-20-2022 End: 03-20-2022 Patient encounter procedure Serafin ARAGON [facility] Start: 03-15-2022 End: 03-15-2022 ambulatory Lala Neri Other [facility] Other Start: 03-15-2022 Office outpatient vi sit 15 minutes Lala Calvey [facility] Start: 03-14-2022 End: 03-15-[address] MAREK SANTIAGO Facility:[facility] Start: 02-08-2022 End: 02-08-2022 ambulatory Lala Calvey Other [facility] Other Start: 02-08-2022 Postop follow up vis it related to original px Lala Calvey [facility] Start: 01-11-2022 End: 01-11-2022 ambulatory Lala Calvey Other [facility] Other Start: 01-11-2022 Postop follow up vis it related to original px Lala Calvey [facility] Start: 12-16-2021 End: 12-16-2021 ambulatory Lala Calvey Other [facility] Other Start: 12-16-2021 Postop follow up vis it related to original px Lala Calvey [facility] Start: 12-14-2021 Encounter for preprocedural laboratory examination LALA NERI [facility] Start: 12-07-2021 End: 12-08-2021 Encounter for preprocedural laboratory examination LALA DARON Facility:[facility] Start: 12-07-2021 End: 12-08-2021 ambulatory LALA NERI [facility] Other Start: 12-07-2021 Encounter for other preprocedural examination Lala Neri [facility] Start: 12-07-2021 Office outpatient ne w 45 minutes Lala Neri [facility] Start: 12-05-2021 End: 12-05-[address] MAREK SANTIAGO Facility:[facility] Procedures Date Procedure Procedure Detail Performing Clinician Start: 02-26-2025 Computed tomography of abdomen and pelvis with contrast Marek Pamela [facility] Work Phone: Start: 02-26-2025 Plain chest X-ray Sandrine green Pamela Work Phone: Start: 02-26-2025 Bacterial ID (NA Mul tiplex Assay) Marek Santiago JR Work Phone: Start: 02-26-2025 Respiratory Panel (PCR) Marek Santiago JR Work Phone: Start: 02-26-2025 Urine culture Marek V jesus SHAW Work Phone: Start: 02-15-2025 Urine culture Marek V jesus [facility] Work Phone: Start: 02-13-2025 Urine culture Marek V alone Work Phone: Start: 03-07-2023 Appendectomy Dyan TREVINO Start: 09-21-2020 [...] Treatment Date Care Activity Detail Author Start: 12-06-2031 DTaP/Tdap/Td Vaccine s (2 - Tdap) DTaP/Tdap/Td Vaccines (2 - Tdap) [facility] Start: 2025 COVID-19 Vaccine ( season) COVID-19 Vaccine ( season) [facility] Start: 2025 Influenza vaccination Influenza Vacc ine (#1) [facility] Start: 03-08-2025 [facility] Start: 03-07-2025 [facility] Start: 03-06-2025 [facility] Start: 03-05-2025 [facility] Start: 03-04-2025 [facility] Start: 03-03-2025 [facility] Start: 03-02-2025 [facility] Start: 03-01-2025 Bacteria identified in Blood by Culture Blood Culture [facility] Start: 03-01-2025 End: 03-01-2025 [facility] Start: 02-28-2025 [facility] Start: 02-27-2025 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 [facility] Start: 02-27-2025 [facility] Start: 02-27-2025 [facility] Start: 02-26-2025 [facility] Start: 02-26-2025 Physical therapy procedure [facility] Start: 02-26-2025 Referral to occupational therapist [facility] Start: 02-26-2025 [facility] Start: 02-26-2025 Hospital admission [facility] Start: 02-26-2025 Urine culture [facility] Start: 02-26-2025 [facility] Start: 02-26-2025 Bacteria identified in Blood by Culture Blood Culture [facility] Start: 02-26-2025 Bacteria identified in Urine by Culture Urine Culture [facility] Start: 02-15-2025 Bacteria identified in Urine by Culture Urine Culture [facility] Start: 02-15-2025 Urine culture [facility] Start: 02-13-2025 Bacteria identified in Urine by Culture Urine Culture [facility] Start: 02-13-2025 End: 02-13-2025 Urine culture [facility] Start: 04-11-2023 ambulatory Ambulatory Facility:[facility] Start: 12-22-2014 Zoster Vaccines (2 o f 3) Zoster Vaccines (2 of 3) [facility] Start: 2008 Prostate specific antigen measurement PSA Prostate Cancer Screening [facility] Start: 1977 Pneumococcal vaccination Pneumococcal Vaccine (1 of 2 - PCV) [facility] Start: 1976 Hepatitis C screening Hepatitis C [facility] Start: 1959 MMR Vaccines (1 of 1 - Standard series) MMR Vaccines (1 of 1 - Standard series) [facility] Start: 1958 Lipid panel Lipid Panel [facility] Start: 1960 Medicare Annual Wellness Visit Medicare Annual Wellness Visit (AWV) [facility] Start: 1960 Screening for malign ant neoplasm of colon [facility] End: 03-16-2025 NM Heart Perfusion W stress and W radionuclide IV [facility] Service [facility] Work Phone: Comment on above: Once for 1 Occurrenc es starting 03/16/2025 until 03/16/2025 Patient Education Know your Meds [facility] Work Phone: Patient referral [facility] Work Phone: Immunizations Immunization Date Immunization Notes Care Provider Fa nadeen 06-11-2021 SARS-CoV-2 (COVID-19 ) mRNA-1273 vaccine Dyan SHERLove [facility] [place] Comment on above: Result Comment: 2022: [id number] 03-29-2021 influenza virus vaccine, unspecified formulation Tianna 1 [facility] Work Phone: 10-15-2020 SARS-CoV-2 (COVID-19 ) mRNA-1273 vaccine Dyan SHERLove [facility] [place] 09-17-2020 SARS-CoV-2 (COVID-19 ) mRNA-1273 vaccine Dyan SHERL [facility] [place] 04-23-2019 influenza virus vaccine, live, attenuated, for intranasal use Serafin MARGO [facility] Payers Date Payer Category Payer Self-pay 2023 Medicare [id number] 2020 Unknown 2015 Medicare [id number] 2015 Unknown [id number] 1959 Unknown [id number] 2. [id number] 1958 Unknown [id number] 2.16.84 0.1.492774.3.579.2.593 1958 Unknown [id number] 2.16.84 0.1.312110.3.579.2.593 1958 Unknown [id number] 2.16.84 0.1.982227.3.579.2.593 1958 Unknown [id number] 2.16.84 0.1.143877.3.579.2.593 1958 Unknown [id number] 2.16.8 40.1.152832.3.579.2.727 1958 Unknown [id number] 2.16.8 40.1.929793.3.579.2.727 1958 Unknown [id number] 2.16.8 40.1.364157.3.579.2.6 1958 Unknown [id number] 2.16.8 40.1.487915.3.579.2.124 1958 Unknown [id number] 2.16.8 40.1.743764.3.579.2.124 1958 Unknown [id number] 2.16.8 40.1.332135.3.579.2.1245 1958 Unknown [id number] 2.16.8 40.1.702839.3.579.2.1245 1958 Unknown [id number] 2.16.8 40.1.472580.3.579.2.718 1958 Unknown [id number] 2.16.8 40.1.140458.3.579.2.8 1958 Unknown [id number] 2.16.8 40.1.471807.3.579.2.718 1958 Unknown [id number] 2.16.8 40.1.563977.3.579.2.718 1958 Unknown [id number] 2.16.8 40.1.432734.3.579.2.8 1958 Unknown [id number] 2.16.8 40.1.180110.3.579.2. Unknown [facility] / [id number] Unknown [id number] 2.16.8 40.1.108526.3.579.2.531 Unknown [id number] 2.16.8 40.1.075917.3.579.2.531 Unknown [id number] 2.16.8 40.1.032344.3.579.2.531 Social History Date Type Detail Facility Sex Assigned At [facility] Other Start: 03-20-2022 Tobacco smoking status Never smoked tobacco (finding) [facility] Start: 03-20-2023 End: 02-26-2025 Tobacco smoking status Ex-smoker (finding) [facility] Start: 06-03-2022 Tobacco smoking status Never [facility] Sex Male (finding) [facility] Start: 1960 Sex Assigned At Male F [facility] Tobacco smoking status NHIS Tobacco smoking consumption unknown [facility] Work Phone: Start: 1960 Sex assigned at Not on file [facility] Work Phone: Medical Equipment Procedure Code Equipment Code Equipment Original Text Equipment Identifier Dates EXTRACORPOREAL S HOCK WAVE LITHOTRIPSY Serafin ARAGON MD 09/09/20 Unknown Ureter R {[id number]{ [id number]{10}[id number] FDA Start: 09-09-2020 CYSTOSCOPY URETE ROSCOPY Serafin ARAGON MD 09/16/20 Unknown Ureter R {[id number]{ 17}[id number]{10}[id number] FDA Start: 09-16-2020 Goals Date Patient Goal Desired Activity /State Functional Status Date Assessment Result Facility 03-01-2025 Functional status Patient at Baseline [facility] Work Phone: 02-26-2025 Functional status Patient Not at Baseline [facility] Work Phone: 03-20-2023 Functional Status N/A [facility] rgbillie [facility] 03-20-2022 Functional Status N/A [facility] Status Date Assessment Result Facility 03-01-2025 Cognitive function Cognitive Sta tus Patient at Baseline [facility] Work Phone: 02-26-2025 Cognitive function Cognitive Sta tus Patient at Baseline [facility] Work Phone: Clinical Notes 12-07-2021 to 03-01-2025 Note Date & Type Note Facility 03-01-2025 Progress note [facility] 02-28-2025 Progress note Note Date/Time February 28, 2025 4:37pm [facility] [address] [place] [address] Hospitalist Progress Note Signed Patient: Dyan Harrell MR#: [id number] : 1960 Acct:[id number] Age/Sex: 64 / M Adm Date: 5 Loc: Room: [address] [place] [address] Type: ADM IN Attending Dr: Dyan Sharp [...] <Electronically signed by Dyan Sharp DO> 02/28/25 [facility] Work Phone: 1(274) 420-203908-23-2025 [place] [address] Hospitalist Progress Note Signed Patient: Dyan Harrell MR#: [id number] : 1960 Acct:[id number] Age/Sex: 64 / M Adm Date: 5 Loc: Room: [address] [place] [address] Type: ADM IN Attending Dr: Dyan Sharp [...] DO 02/28/25 16 30 Signed By: 02/28/[address] [place], [place] 5952708-23-2025 Progress note Author Stephon Leon [facility] Note Date/Time February 28, 2025 10 :15am [facility] [address] [place] [address] Cardiology Progress Note Signed Patient: Dyan Harrell MR#: [id number] : 1960 Acct:[id number] Age/Sex: 64 / M Adm Date: 5 Loc: 4P Room: [address] [place] [address] Type: ADM IN Attending Dr: Dyan Sharp [...] % (Auto) 77.5 Lymph % (Auto) 11.7 [place] % (Auto) 6.7 Eos % (Auto) 3.1 Baso % (Auto) 1.0 Nucleat RBC Rel Count 0.0 Neut # (Auto) 7.9 H Lymph # (Auto) 1.2 [place] # (Auto) 0.7 Eos # (Auto) 0.3 [...] test and few weeks Documented By: Stephon Leon MD 02/28/25 1006 Signed By: <Electronically signed by MD Stephon Leon> 02/28/25 1015 [facility] Work Phone: 1(402) 100-106208-23-2025 [place] [id number] Cardiology Progress Note Signed Patient: Dyan Harrell MR#: [id number] : 1960 Acct:[id number] Age/Sex: 64 / M Adm Date: 5 Loc: 4 Room: [address] [place] [address] Type: ADM IN Attending Dr: Dyan Sharp [...] % (Auto) 77.5 Lymph % (Auto) 11.7 [place] % (Auto) 6.7 Eos % (Auto) 3.1 Baso % (Auto) 1.0 Nucleat RBC Rel Count 0.0 Neut # (Auto) 7.9 H Lymph # (Auto) 1.2 [place] # (Auto) 0.7 Eos # (Auto) 0.3 [...] test and few weeks Documented By: Stephon Leon MD 02/28/25 1006 Signed By: 02/28/25 [facility]08-22-2025 Consult note Author W Salbador [facility] Note Date/Time February 27, 2025 5: 22pm [facility] [address] [place] [address] Cardiology Consult Note Signed Patient: Dyan Harrell MR#: [id number] : 1960 Acct:[id number] Age/Sex: 64 / M Adm Date: 5 Loc: Room: [address] [place] [address] Type: ADM IN Attending Dr: Orlando Walton MD Copies to: Marek Santiago Jr, MD Tiny Darling DO~ Cardiology HPI History of Present Illness [...] successful completion of antibiotic therapy and rehydration [facility] Medical History (Updated 02/27/25 @ 14:35 by Lea Mahmood RN) DM2 (diabetes mellitus, type 2) BPH (benign prostatic hyperplasia) High cholesterol Kidney stones Problem List clean-up per request of Phys. EHR [facility] Surgical History Status post cervical spinal fusion Problem List clean-up per request of Phys. EHR Cmte History of lithotripsy Problem List clean-up per request of Phys. EHR [facility] History of tonsillectomy Problem List clean-up per request of Phys. EHR [facility] History of cholecystectomy Problem List clean-up per request of Phys. EHR [facility] History of renal stent Problem List clean-up per request of Phys. EHR [facility] Family History (Updated 03/15/22 @ 08:32 by Provider Conversion) Mother Lung cancer Mother Cancer [facility] Problem: Diagnosed with Cancer Social History Smoking [...] x10E3/uL Lymph # (Auto) 1.4 (1.00-4.8) x10E3/uL [place] # (Auto) 1.0 H (0.0-0.8) x10E3/uL Eos [...] / 1000 mls/hr IV .Q10H MENDEZ Rx#: [id number] Meropenem 1Gm-*Ns* 1 gm In 100 100 / 100 ml @ 200 mls/hr IV Q8H MENDEZ Rx#: [id number] Sodium Chloride 0.9% 1,000 ml 1 1000 / 1000 ,000 ml @ 999 mls/hr IV .Q1H1M ONE Rx#:[id number] Oral 400 / 400 Output: Urine 200 [...] testing modulator Documented By: Tiny Siu DO 02/27/25 1715 Signed By: <Electronically signed by Tiny Siu DO> 02/27/25 1722 [facility] Work Phone: 1(294) 863-337008-22-2025 [place] [address] Cardiology Consult Note Signed Patient: Dyan Harrell MR#: [id number] : 1960 Acct:[id number] Age/Sex: 64 / M Adm Date: 5 Loc: Room: [address] [place] [address] Type: ADM IN Attending Dr: Orlando Walton [...] successful completion of antibiotic therapy and rehydration [facility] Medical History (Updated 02/27/25 @ 14:35 by [...] x10E3/uL Lymph # (Auto) 1.4 (1.00-4.8) x10E3/uL [place] # (Auto) 1.0 H (0.0-0.8) x10E3/uL Eos [...] / 1000 mls/hr IV .Q10H MENDEZ Rx#: [id number] Meropenem 1Gm-*Ns* 1 gm In 100 100 / 100 ml @ 200 mls/hr IV Q8H MENDEZ Rx#: [id number] Sodium Chloride 0.9% 1,000 ml 1 1000 / 1000 ,000 ml @ 999 mls/hr IV .Q1H1M ONE Rx#:[id number] Oral 400 / 400 Output: Urine 200 [...] Siu DO 02/27/251714 Signed By: 02/27/25 1722 [facility]08-22-2025 Progress note Author Orlando Walton [facility] Note Date/Time February 27, 2025 2: 40pm [facility] [address] [place] [address] Hospitalist Progress Note Signed Patient: Dyna Harrell MR#: [id number] : 1960 Acct:[id number] Age/Sex: 64 / M Adm Date: 08/21/2 5 Loc: 4P Room: [id number] Type: ADM IN Attending Dr: Orlando Walton [...] 02/24/25 after shock wave lithotripsy, presented to [facility] emergency room on 02/26/2025 with fevers and [...] <Electronically signed by Orlando Walton MD> 02/27/25 1440 [facility] Work Phone: 1(297) 442-799708-22-2025 [place] [address] Hospitalist Progress Note Signed Patient: Dyan Harrell MR#: [id number] : 1960 Acct:[id number] Age/Sex: 64 / M Adm Date: 5 Loc: Room: [address] [place] [address] Type: ADM IN Attending Dr: Orlando Walton [...] 02/24/25 after shock wave lithotripsy, presented to [facility] emergency room on 02/26/2025 with fevers and [...] MD 02/27/25 0930 Signed By: 02/27/25 1440 [facility]08-22-2025 Note [id number]#1.00[facility]08-21-2025 History and physical note Author Orlando Walton [facility] Note Date/Time February 26, 2025 9: 34pm [facility] [address] [place] [address] Hospitalist H&P Signed Patient: Dyan Harrell MR#: [id number] : 1960 Acct:[id number] Age/Sex: 64 / M Adm Date: 5 Loc: Room: [address] [place] [address] Type: ADM IN Attending Dr: Orlando Walton MD Copies to: Marek Santiago Jr, DO Orlando Walton MD~ HPI DATE OF EXAMINATION: 02/26/25 CHIEF COMPLAINT: Fevers and chills HISTORY OF PRESENT ILLNESS: Dyan Harrell is a 64-year-old gentleman with diabetes,mellitus, former smoker of 30+ years, status post recent prostatectomy on 02/24/25 after shock wave lithotripsy, presented to [facility] emergency room on 02/26/2025 with fevers and [...] negative unless noted below or in HPI [facility] Medical History (Updated 02/26/25 @ 21:28 by Orlando Walton MD) Kidney stones Problem List clean-up per request of Phys. EHR [facility] Surgical History Status post cervical spinal fusion Problem List clean-up per request of Phys. EHR [facility] History of lithotripsy Problem List clean-up per request of Phys. EHR [facility] History of tonsillectomy Problem List clean-up per request of Phys. EHR [facility] History of cholecystectomy Problem List clean-up per request of Phys. EHR [facility] History of renal stent Problem List clean-up per request of Phys. [facility]HR [facility] Family History (Updated 03/15/22 @ 08:32 by [...] % (Auto) 5.3 % (.) 02/26/25 16:13 [place] % (Auto) 1.4 % (.) 02/26/25 16:13 Eos % (Auto) 1.0 % (.) 02/26/25 16:13 Baso % (Auto) 0.7 % (.) 02/26/25 16:13 Nucleat RBC Rel Count 0.0 /100 WBC (0-0.5) 02/26/25 16:13 Neut # (Auto) 16.3 x10E3/uL (1.8-7.7) H 02/26/25 16:13 Lymph # (Auto) 0.9 x10E3/uL (1.00-4.8) L 02/26/25 16:13 [place] # (Auto) 0.3 x10E3/uL (0.0-0.8) 02/26/25 16:13 [...] pH 6.0 (5.0-9.0) 02/26/25 16:25 Ur Specific [place] 1.014 (1.001-1.030) 02/26/25 16:25 Urine Protein 100 [...] 02/24/25 after shock wave lithotripsy, presented to [facility] emergency room on 02/26/2025 with fevers and [...] <Electronically signed by Orlando Walton MD> 02/26/25 [facility] Work Phone: 1(697) 651-983508-21-2025 History and physical [place] [id number] Hospitalist H&P Signed Patient: Dyan Harrell MR#: [id number] : 1960 Acct:[id number] Age/Sex: 64 / M Adm Date: 5 Loc: 4P Room: [address] [place] [address] Type: ADM IN Attending Dr: Orlando Walton MD Copies to: Marek Santiago Jr, DO Orlando Walton MD~ HPI DATE OF EXAMINATION: 02/26/25 CHIEF COMPLAINT: Fevers and chills HISTORY OF PRESENT ILLNESS: Dyan Harrell is a 64-year-old gentleman with diabetes,mellitus, former smoker of 30+ years, status post recent prostatectomy on 02/24/25 after shock wave lithotripsy, presented to [facility] emergency room on 02/26/2025 with fevers [...] negative unless noted below or in HPI [facility] Medical History (Updated 02/26/25 @ 21:28 by Orlando Walton MD) Kidney stones Problem List clean-up per request of Phys. EHR [facility] Surgical History Status post cervical spinal fusion [...] List clean-up per request of Phys. [facility]HR [facility] Family History (Updated 03/15/22 @ 08:32 by [...] % (Auto) 5.3 % (.) 02/26/25 16:13 [place] % (Auto) 1.4 % (.) 02/26/25 16:13 Eos % (Auto) 1.0 % (.) 02/26/25 16:13 Baso % (Auto) 0.7 % (.) 02/26/25 16:13 Nucleat RBC Rel Count 0.0 /100 WBC (0-0.5) 02/26/25 16:13 Neut # (Auto) 16.3 x10E3/uL (1.8-7.7) H 02/26/25 16:13 Lymph # (Auto) 0.9 x10E3/uL (1.00-4.8) L 02/26/25 16:13 [place] # (Auto) 0.3 x10E3/uL (0.0-0.8) 02/26/25 16:13 [...] pH 6.0 (5.0-9.0) 02/26/25 16:25 Ur Specific [place] 1.014 (1.001-1.030) 02/26/25 16:25 Urine Protein 100 [...] 02/24/25 after shock wave lithotripsy, presented to [facility] emergency room on 02/26/2025 with fevers and [...] Orlando Walton MD 02/26/251939 Signed By: 02/26/252133 [facility]08-21-2025 Evaluation note* Diagnosis Onset Date Resolution Status Admit Date Diabetes mellitus acute February 26, 2025 7:28pm Elevated troponin acute February 26, 2025 7:28pm Sepsis acute February 26, 2 025 7:28pm UTI (urinary tract infection) acute February 26, 2025 7:28pm [facility] Work Phone: 1(491) 640-420408-21-2025 Radiology [facility] Main [place] [address] [place] [address] CT Scan Report Signed Patient: Dyan Harrell MR#: [id number] : 1960 Acct:[id number] Age/Sex: 64 / M ADM Date: 5 Loc: ER Room: Type: [facility] ER Attending Dr: Copies to: Melody [...] Harper M.D. 02/26/2025 5:38 PM Dictation Location: [place] [address] Transcribed By: [facility] 02/26/251737 Dictated By: Herman Harper DO 02/26/25 1734 Signed By: 02/26/258 [facility]08-20-2025 Note [id number]#1.00[facility] 02-25-2025 [id number]#1.00[facility]08-19-2025 [facility] SURGERY Clinical Discharge Summary PERSON INFORMATION Name DYAN HARRELL Age 64 Years 1960 Sex MALE Language Georgian PCP MAREK SANTIAGO JR. Marital Status Single [facility] Service Ambulatory Surgery N 19-14-89 Acct# Arrival 02/24/2025 05:41:57 Visit Reason SURGERY - CYSTO GREENLIGHT Acuity LOS 006 22:46 Address: [address] [place] [id number] Comment: PROVIDER INFORMATION VITALS INFORMATION Vital Sign [...] pain. Refills: 0. Medication List: New Medications [facility]/pharmacy #[id number], [address] [place] [address] [phone], [phone] cephalexin (Keflex 500 mg oral capsule) 1 cap(s) Oral (given by mouth) every 8 hours.. Refills: 0. Medications That Were Updated - Follow Below Instructions [facility]/pharmacy #[id number], [address], [place] [phone], [phone] Updated: traMADol (Ultram 50 mg oral tablet) [...] (given by mouth) every day. New Medications [facility]/pharmacy #[id number], [address] [address] [phone], [phone] cephalexin (Keflex 500 mg oral capsule) 1 cap(s) Oral (given by mouth) every 8 hours.. Refills: 0. Medications That Were Updated - Follow Below Instructions [facility]/pharmacy #[id number], [address] [place] [address] [phone], [phone] Updated: traMADol (Ultram 50 mg oral tablet) [...] a day (at be (more content not included)...[id number] Note [id number]#1.00[facility]07-30-2025 [id number]#1.00[facility] 02-03-2025 [facility] SURGERY Clinical Discharge Summary PERSON INFORMATION Name DYAN HARRELL Age 64 Years 1960 Sex MALE Language Georgian PCP MAREK SANTIAGO JR. Marital Status Single Phone Med Service Ambulatory Surgery Acct# Arrival 02/03/2025 09:00:14 Visit Reason Surgery-Bilat ESWL Acuity LOS 060 01:54 Address: [address] [place] [address] Comment: PROVIDER INFORMATION VITALS INFORMATION Vital Sign [...] ) DIET & ACTIVITY (more content not included)...[id number] Tyson reviews PAT information and [...] Signed on: 01/08/2025 10:45 EDT] Lady Looney [facility] [id number] Hospital Discharge instructions Patient Education 03/20/2022 08:07:07 Kidney Stones, Lobe-wj-Ukzh Kidney Stones Kidney stones are rock-like masses [...] Follow these instructions at home: Medicines Take mukr-nlt-lvxkajg and prescription medicines only as told by [...] 12/11/2008 Document Revised: 11/11/2019 Document Reviewed: 11/11/2019 [employer] Patient Education 2019 Little[employer]. Follow Up Care 09/07/2021 09:12:58 With:MARGO SIMON, Serafin Mixon, URL Address: [facility] [address] [place] [address]- When:Within 6 Month(s) [facility] 09-07-2022 Evaluation note* Encounter Date Diagnosis Assessment [...] Other specified postprocedural states (ICD-10 - Z98.890) [facility] Other 08-03-2022 Evaluation note* Encounter Date Diagnosis [...] Other specified postprocedural states (ICD-10 - Z98.890) [facility] Other 07-06-2022 Evaluation note* Encounter Date Diagnosis [...] Other specified postprocedural states (ICD-10 - Z98.890) [facility] Other 06-10-2022 Evaluation note* Encounter Date Diagnosis [...] Other specified postprocedural states (ICD-10 - Z98.890) [employer] Other 06-01-2022 Evaluation note* Encounter Date Diagnosis [...] S61.401A) Dec, Pre-op exam (ICD-10 - Z01.818) [facility] [employer] Other Evaluation + Plan note Future Appointments Appointment Date:09/25/2022 08:45:00 AM Scheduled Provider:Serafin ARAGON MD Location:[facility] Appointment Type:URO Office Visit [facility] Evaluation + Plan note Future Appointments Appointment Date:04/11/2023 08:00:00 AM Scheduled Provider:Serafin ARAGON MD Location:[facility] Appointment Type:URO Office Visit General Surgery Marybeth Evaluation noteNo assessment information available [facility] Work Phone: Evaluation note* Diagnosis Elevated troponin Other abnormal blood chemistry Acute or subacute form of ischemic heart disease Other acute and subacute form of ischemic heart disease documented in this encounter [facility] Work Phone: History and physical note Author Orlando Walton [facility] Note Date/Time February 26, 2025 9: 34pm [facility] [address] [place] [address] Hospitalist H&P Signed Patient: Dyan Harrell MR#: [id number] : 1960 Acct:[id number] Age/Sex: 64 / M Adm Date: 5 Loc: 4 Room: [address] [place] [address] Type: ADM IN Attending Dr: Orlando Walton MD Copies to: Marek Santiago Jr, DO Orlando Walton MD~ HPI DATE OF EXAMINATION: 02/26/25 CHIEF COMPLAINT: Fevers and chills HISTORY OF PRESENT ILLNESS: Dyan Harrell is a 64-year-old gentleman with diabetes,mellitus, former smoker of 30+ years, status post recent prostatectomy on 02/24/25 after shock wave lithotripsy, presented to [facility] emergency room on 02/26/2025 with fevers and [...] negative unless noted below or in HPI [facility] Medical History (Updated 02/26/25 @ 21:28 by [...] % (Auto) 5.3 % (.) 02/26/25 16:13 [place] % (Auto) 1.4 % (.) 02/26/25 16:13 Eos % (Auto) 1.0 % (.) 02/26/25 16:13 Baso % (Auto) 0.7 % (.) 02/26/25 16:13 Nucleat RBC Rel Count 0.0 /100 WBC (0-0.5) 02/26/25 16:13 Neut # (Auto) 16.3 x10E3/uL (1.8-7.7) H 02/26/25 16:13 Lymph # (Auto) 0.9 x10E3/uL (1.00-4.8) L 02/26/25 16:13 [place] # (Auto) 0.3 x10E3/uL (0.0-0.8) 02/26/25 16:13 [...] pH 6.0 (5.0-9.0) 02/26/25 16:25 Ur Specific [place] 1.014 (1.001-1.030) 02/26/25 16:25 Urine Protein 100 [...] 02/24/25 after shock wave lithotripsy, presented to [facility] emergency room on 02/26/2025 with fevers and [...] 02/26/251939 Signed By: <Electronically signed by Orlando Waltno MD> 02/26/25 2134 [facility] Work Phone: History general Narrative - Reported* Type Description Date Medical History kidney stones Medical History metformin Surgical History gallbladder Surgical History tonsillectomy Surgical History lithotripsy Surgical History cervical fusion Surgical History kidney stents\ [facility] Other Hospital course Narrative No data available for this section [facility] Hospital Discharge instructions No data available for this section General Surgery [place] Progress note No data available for this section [facility] Prozfess note Author Stephon Leon [facility] Note Date/Time March 01, 2025 1: 27pm [facility] [address] [place] [address] Cardiology Progress Note Signed Patient: Dyan Harrell MR#: [id number] : 1960 Acct:[id number] Age/Sex: 64 / M Adm Date: 5 Loc: Room: [address] [place] [address] Type: ADM IN Attending Dr: Dyan Sharp [...] % (Auto) 64.5 Lymph % (Auto) 22.3 [place] % (Auto) 9.0 Eos % (Auto) 3.4 Baso % (Auto) 0.8 Nucleat RBC Rel Count 0.1 Neut # (Auto) 6.0 Lymph # (Auto) 2.1 [place] # (Auto) 0.8 Eos # (Auto) 0.3 [...] test and few weeks Documented By: Stephon Leon MD 03/01/25 1309 Signed By: <Electronically signed by MD Stephon Leon> 03/01/25 1309 [facility] Work Phone: Reason for referral (narrative)No reason for referral information availableC[facility] Work Phone: Reason for visit Narrative* Cardiac Stress Testing (Routine) - Authorized Specialty Diagnoses / Procedures Referred By Contac t Referred To Contact Diagnoses Elevated troponin Acute or subacute form of ischemic heart disease Procedures Nuclear Stress Test CHG MYOCARDIAL SPECT MULTIPLE STUDIES Stephon Leon MD [address] [place] [address], [address] [address] Phone: tel: fax: [address] [phone] Referral ID Status Reason Start Date Expiration Date V isits Requested Visits Authorized [id number] Authorized 03/02/2025 03/02/2026 5 5 [facility] Work Phone: Reason for visit Narrative* Cardiac Stress Testing (Routine) - Authorized Specialty Diagnoses / Procedures Referred By Contac t Referred To Contact Diagnoses Elevated troponin Acute or subacute form of ischemic heart disease Procedures Nuclear Stress Test CHG MYOCARDIAL SPECT MULTIPLE STUDIES Stephon Leon MD [address] [place] [address], [address] [address] Phone: tel: fax: [address] [phone] Referral ID Status Reason Start Date Expiration Date V isits Requested Visits Authorized [id number] Authorized 03/02/2025 03/02/2026 5 5 [facility] Work Phone: Summary Purpose Family History No [...] 2025 NON STAFF Attending Provider Active Start: terence 2024 End: February 13, 2025 Team Status: Inactive Member Role Status Dates NON STAFF Attending Provider Active Start: 2024 End: February 15, 2025 Team Status: Active Member Role Status Dates Melody Siddiqi APRN Emergency Provider Active Start: February 26, 2025 Marek Santiago JR DO Primary Care [...] Walton MD Admit Provider Active Start: 2024 End: March 01, 2025 Negrita Smyth RN Other Provider Active Star t: February 26, 2025 End: March 01, 2025 Tiny Sui DO Other Provider Active Start : February 26, 2025 End: March 01, 2025 Marla Ware MD Other Provider Active Start: February 26, 2025 End: March 01, 2025 Stephon Leon MD Other Provider Active St art: February 26, 2025 End: March 01, 2025 Agatha Styles APRN Other Provider Active Start : February 26, 2025 End: March 01, 2025 Nemo Hensley MD Other Provider Active Start: 2024 End: March 01, 2025 Aliyah Heredia MD Other Provider Active Start: 2024 End: March 01, 2025 Jessica Garcia [employer]- Other Provider Active Sta rt: February 26, 2025 End: March 01, 2025 Dyan Sharp DO Attending Provider Active St art: February 26, 2025 End: March 01, 2025 Scientific Associate Relationship Specialty Start Date End Date Marek Santiago DO [address] [place] [address] PCP - General Internal Medicine 03/16/25 Scientific Associate Relationship Specialty Start Date End Date Marek Santiago DO [address] [place] [address] PCP - General Internal Medicine 03/16/25 Scientific Associate Relationship Specialty Start Date End Date Marek Santiago DO [address] [place] [address] PCP - General Internal Medicine 03/16/25 (unrecognized sect ion and content) No Status Records FoundNo Status Records FoundNo Status Records FoundNo Status Records FoundNo Status Records Found INFORMATION SOURCE (unrecogn ized section and content) DATE CREATED AUTHOR 09/17/2022 [facility] DATE CREATED AUTHOR AUTHOR'S ORGANIZ ATION 03/21/2023 [facility] DATE CREATED AUTHOR AUTHOR'S ORGANIZ ATION 03/06/2025 [facility] DATE CREATED AUTHOR AUTHOR'S ORGANIZ ATION 03/21/2025 [facility] DATE CREATED AUTHOR AUTHOR'S ORGANIZ ATION 04/09/2025 [facility] Goals (unrecognized section and content) Goals may [...] BE BASED ON THE PRIMARY CLINICAL RECORDS. [employer] provides no warranty or guarantee of the accuracy or completeness of information in this document.
== END 2025-04-13 10:31 | disposition home or self-care (01) ==
LOC: LAB 10:33
PROVIDERS: PCP Internal Medicine; Visit Provider Internal Medicine
DX: N39.0 Urinary tract infection, site not specified (principal)
CPT/HCPCS: 87086